=== PATIENT | female | born 1960 | race American Indian/Alaskan Native ===

== ENCOUNTER 2017-04-03 22:35 | Emergency (ER) | payer MEDICARE ==
[2017-04-03 22:59] VITALS: BMI 16.9
[2017-04-03 23:04] VITALS: O2SAT 97
[2017-04-03] MEDS ORDERED: Sodium Chloride 0.9% 1,000 ML IV ONE (23:09)
[2017-04-03 23:40] LABS: BASO % 0.5 % (0.0-2.0); EOS # 0.2 K/uL (0.0-0.7); EOS % 2.4 % (0.0-4.0); HEMATOCRIT 36.7 % (34.0-47.0); LYMPH # 1.2 K/uL (1.0-4.3); LYMPH % 13.1 % (20.0-40.0); MEAN CELL VOLUME 78.9 fL (81.0-99.0); MEAN CORPUSCULAR HEMOGLOBIN 25.6 pg (27.0-31.0); MEAN CORPUSCULAR HGB CONC 32.5 g/dL (33.0-37.0); MEAN PLATELET VOLUME 7.6 fL (7.2-11.7); MONO # 0.5 K/uL (0.0-0.8); MONO % 5.1 % (0.0-10.0); RED CELL DISTRIBUTION WIDTH 16.5 % (11.5-14.5); WHITE BLOOD COUNT 8.9 K/uL (4.8-10.8)
[2017-04-03] MEDS ORDERED: HYDROmorphone 1 mg/ml ISec ONE (23:41)
[2017-04-03 23:53] LABS: POTASSIUM 4.1 mmol/L (3.6-5.2); SODIUM 137 mmol/L (132-148)
[2017-04-03 23:55] LABS: BILIRUBIN,TOTAL 0.5 mg/dL (0.2-1.3); CARBON DIOXIDE 33 mmol/L (22-30); GFR AFRICAN-AMERICAN > 60
[2017-04-03 23:56] LABS: ALB/GLOB RATIO 0.8 (1.0-2.1); ALKALINE PHOSPHATASE 99 U/L (38-126); ALT/SGPT 25 U/L (9-52); AST/SGOT 25 U/L (14-36); BLOOD UREA NITROGEN 3 mg/dL (7-17); CALCIUM 8.7 mg/dl (8.6-10.4); GLUCOSE,RANDOM 94 mg/dL (65-105); TOTAL PROTEIN 6.2 g/dL (6.3-8.3)
[2017-04-04 00:03] LABS: CHLORIDE 99 mmol/L (98-107)
[2017-04-04] MEDS ORDERED: HYDROmorphone 1 mg/ml ISec ONE (00:24)
[2017-04-04 01:01] LABS: RBC URINE < 1 /hpf (0-3); URINE BILIRUBIN NEGATIVE (NEGATIVE); URINE BLOOD NEGATIVE (NEGATIVE); URINE COLOR Yellow (YELLOW); URINE GLUCOSE (UA) NORMAL (Normal); URINE KETONE NEGATIVE (NEGATIVE); URINE LEUKOCYTE ESTERASE NEG Leu/uL (Negative); URINE PROTEIN NEGATIVE (NEGATIVE); URINE UROBILINOGEN NORMAL mg/dL (0.2-1.0); WBC URINE 1 /hpf (0-5)
--- NOTE | 2017-04-04 01:13 | C.PDOC ---
History Of Present Illness A 56 y/o female with a Hx of pancreatitis, c/o upper abdominal pain that occurred today. Pt denies fever, chills, trauma, nausea, vomiting, diarrhea, vaginal bleeding or discharge, dysuria, or hematuria. Time Seen by Provider: 04/04/17 00:45 Chief Complaint (Nursing): Abdominal Pain History Per: Patient History/Exam Limitations: no limitations Onset/Duration Of Symptoms: Hrs Current Symptoms Are (Timing): Still Present Severity: Mild Location Of Pain/Discomfort: Other (Upper abdominal pain) Quality Of Discomfort: "Pain" Associated Symptoms: denies: Fever, Chills, Nausea, Vomiting Recent travel outside of the [place]: No Additional History Per: Patient Abnormal Vaginal Bleeding: No Past Medical History Reviewed: Historical Data, Nursing Documentation, Vital Signs Vital Signs: Last Vital Signs Temp 99.3 F 04/03/17 22:59 Pulse 76 04/04/17 01:30 Resp 14 04/04/17 01:30 BP 109/69 04/04/17 01:30 Pulse Ox 97 04/04/17 01:30 - Medical History PMH: COPD, Gall Bladder Disease (Cholelithiasis), Pancreatitis Denies: Anxiety, Chronic Kidney Disease - [facility] Procedures INSERT INTERCOSTAL CATH (11/15/13) NON-INVASIVE MECHANICAL VENTILATION (11/15/13) PARENTERAL INFUSION OF CONCENTRATED NUT. SUBSTANCE (11/15/13) THORACOSCOPIC DECORTICATION OF LUNG (11/15/13) Family History: States: Unknown Family Hx - Social History Hx Tobacco Use: Yes Hx Alcohol Use: No Hx Substance Use: No - Immunization History Hx Tetanus Toxoid Vaccination: No Hx Influenza Vaccination: Yes Hx Pneumococcal Vaccination: No Review Of Systems Except As Marked, All Systems Reviewed And Found Negative. Constitutional: Negative for: Fever, Chills, Other (Trauma) Gastrointestinal: Positive for: Abdominal Pain (Upper abdominal pain). Negative for: Nausea, Vomiting, Diarrhea Genitourinary: Negative for: Dysuria, Hematuria, Vaginal Discharge, Vaginal Bleeding Physical Exam - Physical Exam Appears: Non-toxic, In Acute Distress (Distress due to pain) Skin: Warm, Dry Head: Atraumatic, Normacephalic Eye(s): bilateral: Normal Inspection Chest: Symmetrical Cardiovascular: Rhythm Regular, No Murmur Respiratory: Normal Breath Sounds, No Accessory Muscle Use, No Rales, No Rhonchi , No Wheezing Gastrointestinal/Abdominal: Soft, Tenderness (Tenderness to the epigastric area) , Guarding (Upper abdominal area), No Rebound Back: Normal Inspection, No CVA Tenderness Neurological/Psych: Oriented x3, Normal Speech, Normal Cognition, Other (No focal deficit) Gait: Steady ED Course And Treatment - Laboratory Results Result Diagrams: 04/03/17 23:37 04/03/17 23:37 O2 Sat by Pulse Oximetry: 97 (RA) Pulse Ox Interpretation: Normal Medical Decision Making Medical Decision Making: Impression: 56 y/o female c/o upper abdominal pain since today Plans:IV fluids, Dilauded, reassess Disposition Discussed With : Connor Baker Doctor Will See Patient In The: Hospital Counseled Patient/Family Regarding: Diagnosis - Disposition Disposition: AGAINST MEDICAL ADVICE Disposition Time: 02:47 Condition: STABLE - POA Present On Arrival: None - Clinical Impression Clinical Impression: Abdominal pain, Elevated lipase, Acute pancreatitis - Scribe Statement The provider has reviewed the documentation as recorded by the Conneribemanuel rodriguez All medical record entries made by the Conneribemanuel were at my direction and personally dictated by me. I have reviewed the chart and agree that the record accurately reflects my personal performance of the history, physical exam, medical decision making, and the department course for this patient. I have also personally directed, reviewed, and agree with the discharge instructions and disposition.
[2017-04-04] MEDS ORDERED: Dextrose 5%/0.45% NS 1,000 ML IV SCH (02:00)
[2017-04-04 04:02] VITALS: BP 110/72; PULSE 74; RESP 16; TEMP 98.7
[2017-04-04] MEDS ORDERED: Enoxaparin 30 mg Syringe SC SCH (10:00)
--- NOTE | 2017-04-05 00:34 | CP.PCM.HP ---
History of Present Illness - History of Present Illness History of Present Illness: A 56 y/o female with a Hx of pancreatitis, c/o upper abdominal pain that occurred today. Pt denies fever, chills, trauma, nausea, vomiting, diarrhea, vaginal bleeding or discharge, dysuria, or hematuria. Past Patient History - Infectious Disease Hx of Infectious Diseases: None - Past Medical History & Family History Past Medical History?: No - Past Social History Smoking Status: Former Smoker - CARDIAC Hx Cardiac Disorders: No - PULMONARY Hx Chronic Obstructive Pulmonary Disease (COPD): Yes - NEUROLOGICAL Hx Neurological Disorder: No - HEENT Hx HEENT Problems: No - RENAL Hx Chronic Kidney Disease: No - HEMATOLOGICAL/ONCOLOGICAL Hx Blood Disorders: No - INTEGUMENTARY Hx Dermatological Problems: No - MUSCULOSKELETAL/RHEUMATOLOGICAL Hx Falls: No - GASTROINTESTINAL Hx Gall Bladder Disease: Yes (Cholelithiasis) Hx Pancreatitis: Yes - GENITOURINARY/GYNECOLOGICAL Hx Genitourinary Disorders: No - PSYCHIATRIC Hx Anxiety: No Hx Substance Use: No - SURGICAL HISTORY Hx Surgeries: Yes Other/Comment: chesttube insertion-left 11/15/13 oopherectomy 1989 - ANESTHESIA Hx Anesthesia: Yes Hx Anesthesia Reactions: No Hx Malignant Hyperthermia: No Meds Home Medications: Home Medication List Medication Instructions Recorded Confirmed Type oxyCODONE/Acetaminophen [Percocet 1 ea PO Q4 #2 tab 04/04/17 Rx 5/325 mg Tab] Allergies/Adverse Reactions: Allergies Allergy/AdvReac Type Severity Reaction Status Date / Time No Known Allergies Allergy Verified 04/03/17 22:48 Results - Vital Signs Recent Vital Signs: Last Vital Signs Temp 98.7 F 04/04/17 03:00 Pulse 74 04/04/17 03:00 Resp 16 04/04/17 03:00 BP 110/72 04/04/17 03:00 Pulse Ox 97 04/04/17 03:00 - Labs Result Diagrams: 04/03/17 23:37 04/03/17 23:37
== END 2017-04-04 03:00 | disposition left against medical advice (07) ==
LOC: C.ER 22:35 → UNDOADMIN 04-04 01:20 → C.3T 04-04 01:20 → C.ER 04-04 03:00 → UNDODISIN 04-04 03:00
DX: K85.90 Acute pancreatitis without necrosis or infection, unspecified (principal)
CPT/HCPCS: 80053; 81001; 83690; 85025; 96374; 99285; J1170; J7040; J7042

== ENCOUNTER 2017-06-23 06:10 | Inpatient (IN) | payer MEDICARE ==
[2017-06-18 10:07] VITALS: BMI 13.7
[2017-06-23 07:07] LABS: HEMATOCRIT 34.9 % (34.0-47.0); MEAN CORPUSCULAR HEMOGLOBIN 22.8 pg (27.0-31.0); MEAN CORPUSCULAR HGB CONC 31.1 g/dL (33.0-37.0); MEAN PLATELET VOLUME 7.7 fL (7.2-11.7); RED CELL DISTRIBUTION WIDTH 17.2 % (11.5-14.5); WHITE BLOOD COUNT 8.1 K/uL (4.8-10.8)
[2017-06-23 07:18] LABS: MEAN CELL VOLUME 73.1 fL (81.0-99.0)
[2017-06-23] MEDS ORDERED: Propofol 10 mg/ml Inj (20 ML) ONE (07:38)
[2017-06-23] MEDS ORDERED: Midazolam 2 MG/2 ML VIAL ONE (07:38)
[2017-06-23] MEDS ORDERED: ceFAZolin IV 1 gm in Dextrose 1 GM/50 ML BAG IVPB ONE (07:42)
[2017-06-23] MEDS ORDERED: Lactated Ringer's 1,000 ML IV ONE ×4 (07:50→16:00)
[2017-06-23] MEDS: Iohexol 240 (50 ml) ONE ×3 (08:08→09:49)
[2017-06-23] MEDS ORDERED: Phenylephrine 10 mg/ml Inj ONE (09:14)
[2017-06-23] MEDS ORDERED: ePHEDrine 50 mg/ml Inj ONE (09:14)
[2017-06-23] MEDS ORDERED: Rocuronium 10 mg/ml (5 ml) ONE (09:14)
[2017-06-23] MEDS ORDERED: Iohexol 240 (50 ml) ONE (09:49)
[2017-06-23] MEDS ORDERED: Neostigmine Methylsulfate 3mg/3ml Syringe IV ONE (11:29)
[2017-06-23] MEDS ORDERED: Sodium Chloride 0.9% 1,000 ML IV ONE ×2 (11:35→13:30)
[2017-06-23] MEDS ORDERED: Albuterol HFA 90 mcg/actuation (8 g) INH PRN ×2 (11:38→20:45)
--- NOTE | 2017-06-23 11:42 | PCM.SURG1 ---
Surgeon's Initial Post Op Note - Surgeon's Notes Surgeon: Dr. Small Program Writer: Dr. Smith PGY-3, Dr. Camp PGY-2 Type of Anesthesia: General Endo Pre-Operative Diagnosis: Cholelithiasis Operative Findings: Cholelithiasis, extensive adhesions Post-Operative Diagnosis: Cholelithiasis Operation Performed: Laparoscopic cholecystectomy, lysis of adhesions Specimen/Specimens Removed: gallbladder Estimated Blood Loss: EBL {In ML}: 400 Blood Products Given: N/A Drains Used: Fermin Post-Op Condition: Fair Date of Surgery/Procedure: 06/23/17 Time of Surgery/Procedure: 08:00
[2017-06-23] MEDS: HYDROmorphone 0.5 mg/0.5 ml ISec IVP PRN ×4 (12:13→15:52)
[2017-06-23 12:44] LABS: MEAN CELL VOLUME 74.4 fL (81.0-99.0)
[2017-06-23 12:48] LABS: BASO % 0.1 % (0.0-2.0); EOS % 0.2 % (0.0-4.0); HEMATOCRIT 27.8 % (34.0-47.0); LYMPH # 0.8 K/uL (1.0-4.3); LYMPH % 6.2 % (20.0-40.0); MEAN CORPUSCULAR HEMOGLOBIN 22.4 pg (27.0-31.0); MEAN CORPUSCULAR HGB CONC 30.1 g/dL (33.0-37.0); MEAN PLATELET VOLUME 7.3 fL (7.2-11.7); MONO # 0.7 K/uL (0.0-0.8); MONO % 5.4 % (0.0-10.0); PLATELET COUNT 332 K/uL (130-400)
[2017-06-23 12:50] LABS: WHITE BLOOD COUNT 13.6 K/uL (4.8-10.8)
[2017-06-23 13:18] LABS: NEUTROPHIL 84 % (50-75); TOTAL CELLS COUNTED 100
[2017-06-23 13:20] LABS: LARGE PLATELETS PRESENT
--- NOTE | 2017-06-23 14:41 | RAD ---
PROCEDURE: Intraoperative fluoroscopy HISTORY: CHOLECYSTITIS COMPARISON: None available TECHNIQUE: Intraoperative fluoroscopy was provided for intraoperative cholangiogram. Total time of fluoroscopy was 37.3 seconds. FINDINGS: Multiple fluoroscopic spot films are submitted. These demonstrate opacification of the intrahepatic biliary ductal system and common bile duct and cystic duct remnant. No filling defects are appreciated. Films are on file for review. IMPRESSION: Fluoroscopy provided.
[2017-06-23] MEDS ORDERED: HYDROmorphone 0.5 mg/0.5 ml ISec ONE (15:53)
[2017-06-23 16:10] LABS: BASO % 0.2 % (0.0-2.0); HEMATOCRIT 32.1 % (34.0-47.0); LYMPH # 0.5 K/uL (1.0-4.3); LYMPH % 3.6 % (20.0-40.0); MEAN CELL VOLUME 73.9 fL (81.0-99.0); MEAN CORPUSCULAR HEMOGLOBIN 22.4 pg (27.0-31.0); MEAN CORPUSCULAR HGB CONC 30.3 g/dL (33.0-37.0); MEAN PLATELET VOLUME 7.5 fL (7.2-11.7); MONO % 6.6 % (0.0-10.0); RED CELL DISTRIBUTION WIDTH 18.2 % (11.5-14.5); WHITE BLOOD COUNT 14.7 K/uL (4.8-10.8)
[2017-06-23] MEDS ORDERED: HYDROmorphone 1 mg/ml ISec IVP PRN ×2 (17:42→21:03)
--- NOTE | 2017-06-23 20:17 | CP.PCM.CON ---
<CamilajamshidvilmaKathy RinconFrank - Last Filed: 06/23/17 20:10> History of Present Illness - History of Present Illness History of Present Illness: 56 year old female patient with past medical history of COPD, anxiety, pancreatitis, and DVT w/IVC filter, is consulted for s/p laproscopic cholecystecomy (elective procedure/outpatient) with Dr. Small. During the procedure, patient lost approximately 400ml of blood. Patient received 1 unit of PRBC and hemoglobin improved from 8.4 to 9.7. Patient currently reports having 10/10 pain in her abdomen, at the surgical sites. Patient reports taking percocet for more than a year for her abdominal pain. Patient denies having chest pain, headaches, leg pain, nausea, vomiting, and fevers. PMD: Dr. Downing PMHx: COPD, anxiety, pancreatitis, and DVT w/IVC filter SurgHx:"surgery on ovaries many years ago" FamHx: Aunt has cancer (unknown type) SocHx: 1/2ppd for "years", denies drinking and drug use Allergies: NKDA Medications: "inhaler for COPD and a pill for anxiety"; See EMR. Review of Systems - Constitutional Constitutional: absent: Fever, Headache - EENT Ears: absent: Dizziness - Cardiovascular Cardiovascular: absent: Chest Pain, Dyspnea - Respiratory Respiratory: absent: Dyspnea - Gastrointestinal Gastrointestinal: Abdominal Pain. absent: Nausea, Vomiting - Neurological Neurological: absent: Dizziness, Headaches Past Patient History - Infectious Disease Hx of Infectious Diseases: None - Past Medical History & Family History Past Medical History?: Yes - Past Social History Smoking Status: Former Smoker - CARDIAC Hx Cardiac Disorders: No - PULMONARY Hx Respiratory Disorders: Yes Hx Chronic Obstructive Pulmonary Disease (COPD): Yes Hx Pneumonia: Yes (CHILDHOOD) Hx Respiratory Tract Infection: Yes Other/Comment: CHEST TUBE /LUNG INFECTION - NEUROLOGICAL Hx Neurological Disorder: No - HEENT Hx HEENT Problems: No - RENAL Hx Chronic Kidney Disease: No - ENDOCRINE/METABOLIC Hx Endocrine Disorders: No - HEMATOLOGICAL/ONCOLOGICAL Hx Blood Disorders: No Hx Blood Transfusions: Yes Hx Blood Transfusion Reaction: No - INTEGUMENTARY Hx Dermatological Problems: No - MUSCULOSKELETAL/RHEUMATOLOGICAL Hx Musculoskeletal Disorders: No Hx Falls: No - GASTROINTESTINAL Hx Gastrointestinal Disorders: Yes Hx Gall Bladder Disease: Yes (Cholelithiasis) Hx Pancreatitis: Yes - GENITOURINARY/GYNECOLOGICAL Hx Genitourinary Disorders: No - PSYCHIATRIC Hx Psychophysiologic Disorder: No Hx Anxiety: No Hx Substance Use: No - SURGICAL HISTORY Hx Surgeries: Yes Other/Comment: chesttube insertion-left 11/15/13 oopherectomy 1989 - ANESTHESIA Hx Anesthesia: Yes Hx Anesthesia Reactions: No Hx Malignant Hyperthermia: No Has any member of the family had a problem w/ anesthesia?: No Meds Allergies/Adverse Reactions: Allergies Allergy/AdvReac Type Severity Reaction Status Date / Time No Known Allergies Allergy Verified 06/18/17 10:27 - Medications Medications: Current Medications Albuterol (Ventolin Hfa 90 Mcg/Actuation (8 G)) 1 puff INH Q6H PRN PRN Reason: Shortness of Breath Clonazepam (Klonopin) 1 mg PO BID MARY Hydromorphone HCl (Dilaudid) 1 mg IVP Q4H PRN PRN Reason: Pain, moderate (4-7) Lactated Ringer's (Lactated Ringer's) 1,000 mls @ 80 mls/hr IV .[id number] MARY Ondansetron HCl (Zofran Inj) 4 mg IVP Q4 PRN PRN Reason: Nausea/Vomiting Pantoprazole Sodium (Protonix Inj) 40 mg IVP DAILY MARY Fluticasone/Salmeterol (Advair Diskus 250/50) 1 puff INH RBID MARY Physical Exam - Constitutional Appears: In Acute Distress (secondary to pain (s/p surgery)) - Head Exam Head Exam: ATRAUMATIC, NORMAL INSPECTION - Eye Exam Eye Exam: EOMI - ENT Exam ENT Exam: Mucous Membranes Dry - Respiratory Exam Respiratory Exam: Decreased Breath Sounds, Clear to Auscultation Bilateral. absent: Rales, Rhonchi, Wheezes - Cardiovascular Exam Cardiovascular Exam: REGULAR RHYTHM, +S1, +S2 - GI/Abdominal Exam GI & Abdominal Exam: Hypoactive Bowel Sounds, Tenderness (at surgical sites). absent: Distended, Firm - Extremities Exam Extremities exam: Positive for: pedal edema - Neurological Exam Neurological exam: Alert, Oriented x3 - Psychiatric Exam Psychiatric exam: Agitated (due to pain) - Skin Skin Exam: Dry, Intact, Normal Color, Warm Results - Vital Signs Recent Vital Signs: Last Vital Signs Temp 97 F L 06/23/17 16:50 Pulse 91 H 06/23/17 19:00 Resp 20 08/21/17 19:00 BP 156/98 H 06/23/17 19:00 Pulse Ox 100 06/23/17 19:00 - Labs Result Diagrams: 06/23/17 16:13 Labs: Laboratory Results - last 24 hr 06/23/17 06/23/17 06/23/17 07:04 07:04 12:39 WBC 8.1 13.6 H D RBC 4.78 3.74 L Hgb 10.9 L 8.4 L D Hct 34.9 27.8 L MCV 73.1 L D 74.4 L MCH 22.8 L 22.4 L MCHC 31.1 L 30.1 L RDW 17.2 H 17.0 H Plt Count 399 332 MPV 7.7 7.3 Neut % (Auto) 88.1 H Lymph % (Auto) 6.2 L Wirt % (Auto) 5.4 Eos % (Auto) 0.2 Baso % (Auto) 0.1 Neut # 12.0 H Lymph # 0.8 L Wirt # 0.7 Eos # 0.0 Baso # 0.0 Neutrophils % (Manual) 84 H Band Neutrophils % 9 H Lymphocytes % (Manual) 2 L Monocytes % (Manual) 5 Platelet Estimate Normal Large Platelets Present Hypochromasia (manual) Slight Poikilocytosis (manual Slight Anisocytosis (manual) Slight Microcytosis (manual) Slight Target Cells Slight Ovalocytes Slight Blood Type A POSITIVE Antibody Screen Negative 06/23/17 16:13 WBC 14.7 H RBC 4.34 Hgb 9.7 L Hct 32.1 L MCV 73.9 L MCH 22.4 L MCHC 30.3 L RDW 18.2 H Plt Count 260 MPV 7.5 Neut % (Auto) 89.6 H Lymph % (Auto) 3.6 L Wirt % (Auto) 6.6 Eos % (Auto) 0.0 Baso % (Auto) 0.2 Neut # 13.2 H Lymph # 0.5 L Wirt # 1.0 H Eos # 0.0 Baso # 0.0 Neutrophils % (Manual) Band Neutrophils % Lymphocytes % (Manual) Monocytes % (Manual) Platelet Estimate Large Platelets Hypochromasia (manual) Poikilocytosis (manual Anisocytosis (manual) Microcytosis (manual) Target Cells Ovalocytes Blood Type Antibody Screen Assessment & Plan (1) S/P cholecystectomy Assessment and Plan: 56 year old female patient with past medical history of COPD, anxiety, pancreatitis, and DVT w/IVC filter, is consulted for s/p laproscopic cholecystecomy (elective procedure/outpatient) with Dr. Small. During the procedure, patient lost approximately 400ml of blood. Patient received 1 unit of PRBC and hemoglobin improved from 8.4 to 9.7. Patient currently reports having 10/10 pain in her abdomen, at the surgical sites. Patient reports taking percocet for more than a year for her abdominal pain. Patient denies having chest pain, headaches, leg pain, nausea, vomiting, and fevers. Neuro: alert, oriented Pulm: Hx of COPD - O2 via nasal cannula prn - Incentive spirometry - Continue ventolin, advair CV: no acute issues - Continue to monitor Endo: no acute issues GI: - S/p laproscopic cholecystectomy - Hx of Pancreatitis - Continue Pancreaze - CMP: f/u Heme: anemic - Estimated blood loss during surgery 400ml - Hgb decreased from 10.9 to 8.4 - Patient received 1 unit PRBC --> Hgb increased to 9.7 - Monitor H/H Renal: - Dehydrated - Continue lactated ringers ID: no acute issues Prophylaxis: - DVT: SCDs; IVC Filter (from previous hx of DVT); no anticoagulation due to anemia - GI: Protonix Status: Acute <Hunter Escobedo P - Last Filed: 06/24/17 08:09> Meds - Medications Medications: Current Medications Albuterol (Ventolin Hfa 90 Mcg/Actuation (8 G)) 1 puff INH RQ6 PRN PRN Reason: Shortness of Breath Clonazepam (Klonopin) 1 mg PO BID PRN PRN Reason: Anxiety Hydromorphone HCl (Dilaudid) 1 mg IVP Q3 PRN PRN Reason: Pain, moderate (4-7) Last Admin: 06/24/17 05:40 Dose: 1 mg Lactated Ringer's (Lactated Ringer's) 1,000 mls @ 80 mls/hr IV .[id number] MARY Last Admin: 06/24/17 02:13 Dose: Not Given Ondansetron HCl (Zofran Inj) 4 mg IVP Q4 PRN PRN Reason: Nausea/Vomiting Pantoprazole Sodium (Protonix Inj) 40 mg IVP DAILY [facility] Fluticasone/Salmeterol (Advair Diskus 250/50) 1 puff INH RBID MARY Results - Vital Signs Recent Vital Signs: Last Vital Signs Temp 99.8 F H 06/24/17 00:00 Pulse 86 06/24/17 07:00 Resp 16 06/24/17 07:00 BP 107/71 06/24/17 06:02 Pulse Ox 99 06/24/17 07:00 - Labs Result Diagrams: 06/24/17 06:32 06/24/17 06:32 Labs: Laboratory Results - last 24 hr 06/23/17 06/23/17 06/23/17 07:04 12:39 16:13 WBC 13.6 H D 14.7 H RBC 3.74 L 4.34 Hgb 8.4 L D 9.7 L Hct 27.8 L 32.1 L MCV 74.4 L 73.9 L MCH 22.4 L 22.4 L MCHC 30.1 L 30.3 L RDW 17.0 H 18.2 H Plt Count 332 260 MPV 7.3 7.5 Neut % (Auto) 88.1 H 89.6 H Lymph % (Auto) 6.2 L 3.6 L Wirt % (Auto) 5.4 6.6 Eos % (Auto) 0.2 0.0 Baso % (Auto) 0.1 0.2 Neut # 12.0 H 13.2 H Lymph # 0.8 L 0.5 L Wirt # 0.7 1.0 H Eos # 0.0 0.0 Baso # 0.0 0.0 Neutrophils % (Manual) 84 H Band Neutrophils % 9 H Lymphocytes % (Manual) 2 L Monocytes % (Manual) 5 Platelet Estimate Normal Large Platelets Present Hypochromasia (manual) Slight Poikilocytosis (manual Slight Anisocytosis (manual) Slight Microcytosis (manual) Slight Macrocytosis (manual) Target Cells Slight Tear Drop Cells Ovalocytes Slight [place] Cells Sodium Potassium Chloride Carbon Dioxide Anion Gap BUN Creatinine Est GFR ( Amer) Est GFR (Non-Af Amer) Random Glucose Calcium Phosphorus Magnesium Total Bilirubin AST ALT Alkaline Phosphatase Total Protein Albumin Globulin Albumin/Globulin Ratio Blood Type A POSITIVE Antibody Screen Negative 06/23/17 06/23/17 06/24/17 21:42 21:42 06:32 WBC 10.3 10.9 H RBC 4.01 4.30 Hgb 9.2 L 10.0 L Hct 29.5 L 31.7 L MCV 73.5 L 73.8 L MCH 23.0 L 23.2 L MCHC 31.2 L 31.5 L RDW 17.9 H 17.6 H Plt Count 240 281 MPV 7.5 8.1 Neut % (Auto) 87.5 H 82.9 H Lymph % (Auto) 4.5 L 7.6 L Wirt % (Auto) 7.0 8.4 Eos % (Auto) 0.6 0.8 Baso % (Auto) 0.4 0.3 Neut # 9.0 H 9.0 H Lymph # 0.5 L 0.8 L Wirt # 0.7 0.9 H Eos # 0.1 0.1 Baso # 0.0 0.0 Neutrophils % (Manual) 90 H Band Neutrophils % 5 H Lymphocytes % (Manual) 3 L Monocytes % (Manual) 2 Platelet Estimate Normal Large Platelets Hypochromasia (manual) Slight Poikilocytosis (manual Slight Anisocytosis (manual) Slight Microcytosis (manual) Slight Macrocytosis (manual) Slight Target Cells Tear Drop Cells Slight Ovalocytes Slight [place] Cells Slight Sodium 133 Potassium 3.5 L Chloride 110 H Carbon Dioxide 19 L Anion Gap 8 L BUN 3 L Creatinine 0.4 L Est GFR ( Amer) > 60 Est GFR (Non-Af Amer) > 60 Random Glucose 66 Calcium 5.4 L* D Phosphorus 2.9 Magnesium 1.1 L Total Bilirubin 0.9 AST 214 H D ALT 98 H D Alkaline Phosphatase 79 Total Protein 3.7 L Albumin 1.7 L D Globulin 1.9 L Albumin/Globulin Ratio 0.9 L Blood Type Antibody Screen 06/24/17 06:32 WBC RBC Hgb Hct MCV MCH MCHC RDW Plt Count MPV Neut % (Auto) Lymph % (Auto) Wirt % (Auto) Eos % (Auto) Baso % (Auto) Neut # Lymph # Wirt # Eos # Baso # Neutrophils % (Manual) Band Neutrophils % Lymphocytes % (Manual) Monocytes % (Manual) Platelet Estimate Large Platelets Hypochromasia (manual) Poikilocytosis (manual Anisocytosis (manual) Microcytosis (manual) Macrocytosis (manual) Target Cells Tear Drop Cells Ovalocytes [place] Cells Sodium 130 L Potassium 5.0 Chloride 98 Carbon Dioxide 26 Anion Gap 11 BUN 3 L Creatinine 0.5 L Est GFR ( Amer) > 60 Est GFR (Non-Af Amer) > 60 Random Glucose 74 Calcium 9.2 Phosphorus 4.0 Magnesium 1.7 Total Bilirubin 0.8 AST 163 H D ALT 104 H Alkaline Phosphatase 126 D Total Protein 5.0 L Albumin 2.6 L D Globulin 2.4 Albumin/Globulin Ratio 1.1 Blood Type Antibody Screen Attending/Attestation - Attestation I have personally seen and examined this patient.: Yes I have fully participated in the care of the patient.: Yes I have reviewed all pertinent clinical information: Yes Notes (Text): 56 F being observed in icu s/p lap cholecystectomy as has 2 bleeders during surg , which were stopped, EBL about 400, s/p 1unit prbc, pmh of copd, tobacco abuse , use pain meds, pancreatic enzymes for chronic pancreatitis, h/o ivc filter suggesting h/o dvt, details not available. Patient c/o pain which is mainly at sites of port entry, rather rest of abd. Monitor h/h, dvt prophylaxis after pod# 1, after h/h is maintained, see orders for detail.
[2017-06-23] MEDS ORDERED: Morphine 4 MG/ML VIAL IVP STA (20:33)
[2017-06-23] MEDS: Lactated Ringer's 1,000 ML IV SCH (21:23)
[2017-06-23 21:45] LABS: BASO % 0.4 % (0.0-2.0); EOS # 0.1 K/uL (0.0-0.7); EOS % 0.6 % (0.0-4.0); HEMATOCRIT 29.5 % (34.0-47.0); LYMPH # 0.5 K/uL (1.0-4.3); LYMPH % 4.5 % (20.0-40.0); MEAN CELL VOLUME 73.5 fL (81.0-99.0); MEAN CORPUSCULAR HGB CONC 31.2 g/dL (33.0-37.0); MEAN PLATELET VOLUME 7.5 fL (7.2-11.7); MONO # 0.7 K/uL (0.0-0.8); PLATELET COUNT 240 K/uL (130-400); RED CELL DISTRIBUTION WIDTH 17.9 % (11.5-14.5); WHITE BLOOD COUNT 10.3 K/uL (4.8-10.8)
[2017-06-23 21:53] LABS: CHLORIDE 110 mmol/L (98-107); POTASSIUM 3.5 mmol/L (3.6-5.2); SODIUM 133 mmol/L (132-148)
[2017-06-23 21:55] LABS: BILIRUBIN,TOTAL 0.9 mg/dL (0.2-1.3); GFR AFRICAN-AMERICAN > 60
[2017-06-23 21:56] LABS: ALB/GLOB RATIO 0.9 (1.0-2.1); ALKALINE PHOSPHATASE 79 U/L (38-126); ALT/SGPT 98 U/L (9-52); AST/SGOT 214 U/L (14-36); BLOOD UREA NITROGEN 3 mg/dL (7-17); CARBON DIOXIDE 19 mmol/L (22-30); GLUCOSE,RANDOM 66 mg/dL (65-105); PHOSPHOROUS 2.9 mg/dL (2.5-4.5); TOTAL PROTEIN 3.7 g/dL (6.3-8.3)
[2017-06-23 21:57] LABS: MAGNESIUM 1.1 mg/dL (1.6-2.3)
[2017-06-23 21:59] LABS: CALCIUM 5.4 mg/dl (8.6-10.4)
[2017-06-23 22:25] LABS: NEUTROPHIL 90 % (50-75); TOTAL CELLS COUNTED 100
[2017-06-23] MEDS: HYDROmorphone 1 mg/ml ISec IVP PRN (23:48)
[2017-06-24] MEDS: Lactated Ringer's 1,000 ML IV SCH (02:13)
[2017-06-24] MEDS: HYDROmorphone 1 mg/ml ISec IVP PRN ×7 (02:56→21:36)
--- NOTE | 2017-06-24 07:00 | OP ---
PROCEDURE DATE: 06/23/2017 PREOPERATIVE DIAGNOSES: Cholecystitis, cholelithiasis. POSTOPERATIVE DIAGNOSES: Cholecystitis, cholelithiasis. PROCEDURE CARRIED OUT: Laparoscopic cholecystectomy with C-arm cholangiogram. SURGEON: Dr. Small. HAND VIOLIN MAKER: Dr. Smith and ANESTHESIOLOGIST: INDICATIONS: The patient is a middle-aged woman with abdominal pain, found to have gallstones. History includes previous gynecologic surgery through a transverse lower abdominal incision. OPERATIVE FINDINGS: The major problem we encountered was the patient's body habitus, she was quite small, with a very small area between the xiphoid process and the umbilicus. Because of this, we initially by a cutting technique and through an existing umbilical hernia, placed a balloon trocar. We then placed two 5-mm trocars in the right and left lower quadrants respectively. We had to take down numerous adhesions to the anterior abdominal wall and the problem was that later these bled with actually visible bleeding vessels, which had to be clipped. Despite this, our prompt recognition of this, and despite the fact that they were able to be visualized, we did lose approximately 400 to 500 mL of blood during this portion of the procedure. After we had obtained hemostasis, we checked numerous times again to make sure that this was taken care of. There were some residual old brown blood clots that we could not remove, but there was no evidence of fresh bleeding for over 15 minutes at the time of closure. ADDITIONAL FINDINGS: 1. The cholangiogram was normal. 2. Rest of the intraoperative findings were unremarkable. The operation was more difficult than the usual because of the problems with bleeding from the omentum and the patient's small body habitus and the previous surgery. DESCRIPTION OF PROCEDURE: After placing the trocars, we were able to identify the gallbladder, identify the cystic duct, cystic artery, view of safety, carried out a cholangiogram which showed good visualization of the hepatic radicles and good visualization of the distal portion, which was slightly dilated and free flow into the duodenum; however, also it was difficult to fill the area immediately superior to the cystic duct. Nonetheless, it filled above this without any problem and we were in the cystic duct. At this point, we noticed bleeding in the pelvis, which took quite sometime to make sure this was controlled and it was and this was checked again numerous times prior to closure. We then irrigated everything out again. There was a large amount of fluid to remove. We used over 2000 mL of fluid irrigation and when we finally had this all out, we then checked again for hemostasis. After this had been done, we then closed the umbilical port with direct Vicryl sutures and the other ports were left to close primarily. A Fermin drain was brought out through the right lower quadrant from the right upper quadrant. Blood loss was estimated 400 to 500 mL. The patient tolerated the procedure uneventfully. There were no periods of hypotension, except immediately after induction and insufflation, but other than that, the patient tolerated the procedure uneventfully. The patient will be managed expectantly with regard to blood transfusion. Travis Small Jr., MD cc: Dr. Baker.
[2017-06-24 07:03] LABS: ALB/GLOB RATIO 1.1 (1.0-2.1); ALKALINE PHOSPHATASE 126 U/L (38-126); ALT/SGPT 104 U/L (9-52); AST/SGOT 163 U/L (14-36); BILIRUBIN,TOTAL 0.8 mg/dL (0.2-1.3); BLOOD UREA NITROGEN 3 mg/dL (7-17); CALCIUM 9.2 mg/dl (8.6-10.4); CARBON DIOXIDE 26 mmol/L (22-30); CHLORIDE 98 mmol/L (98-107); GFR AFRICAN-AMERICAN > 60; GLUCOSE,RANDOM 74 mg/dL (65-105); MAGNESIUM 1.7 mg/dL (1.6-2.3); SODIUM 130 mmol/L (132-148)
[2017-06-24 07:38] LABS: BASO % 0.3 % (0.0-2.0); EOS # 0.1 K/uL (0.0-0.7); EOS % 0.8 % (0.0-4.0); HEMATOCRIT 31.7 % (34.0-47.0); LYMPH # 0.8 K/uL (1.0-4.3); LYMPH % 7.6 % (20.0-40.0); MEAN CELL VOLUME 73.8 fL (81.0-99.0); MEAN CORPUSCULAR HEMOGLOBIN 23.2 pg (27.0-31.0); MEAN CORPUSCULAR HGB CONC 31.5 g/dL (33.0-37.0); MEAN PLATELET VOLUME 8.1 fL (7.2-11.7); MONO # 0.9 K/uL (0.0-0.8); MONO % 8.4 % (0.0-10.0); PLATELET COUNT 281 K/uL (130-400); RED CELL DISTRIBUTION WIDTH 17.6 % (11.5-14.5); WHITE BLOOD COUNT 10.9 K/uL (4.8-10.8)
--- NOTE | 2017-06-24 07:42 | CP.PCM.PN ---
Subjective - Date & Time of Evaluation Date of Evaluation: 06/24/17 Time of Evaluation: 07:41 - Subjective Subjective: stable hct stable findings discussed with patient Objective - Vital Signs/Intake and Output Vital Signs (last 24 hours): Temp Pulse Resp BP Pulse Ox 99.8 F H 86 16 107/71 99 06/24/17 00:00 06/24/17 07:00 06/24/17 07:00 06/24/17 06:02 06/24/17 07:00 Intake and Output: 06/24/17 06/24/17 06:59 18:59 Intake Total 560 Output Total 1975 Balance -1415 - Medications Medications: Current Medications Albuterol (Ventolin Hfa 90 Mcg/Actuation (8 G)) 1 puff INH RQ6 PRN PRN Reason: Shortness of Breath Clonazepam (Klonopin) 1 mg PO BID PRN PRN Reason: Anxiety Hydromorphone HCl (Dilaudid) 1 mg IVP Q3 PRN PRN Reason: Pain, moderate (4-7) Last Admin: 06/24/17 05:40 Dose: 1 mg Lactated Ringer's (Lactated Ringer's) 1,000 mls @ 80 mls/hr IV .[id number] [facility] Last Admin: 06/24/17 02:13 Dose: Not Given Ondansetron HCl (Zofran Inj) 4 mg IVP Q4 PRN PRN Reason: Nausea/Vomiting Pantoprazole Sodium (Protonix Inj) 40 mg IVP DAILY [facility] Fluticasone/Salmeterol (Advair Diskus 250/50) 1 puff INH RBID MARY - Labs Labs: 06/24/17 06:32 06/24/17 06:32
[2017-06-24] MEDS: Sodium Chloride 0.9% 1,000 ML IV SCH ×2 (08:00→19:51)
[2017-06-24 08:21] LABS: EOSINOPHIL 2 % (0-4); NEUTROPHIL 89 % (50-75); TOTAL CELLS COUNTED 100
[2017-06-24] MEDS ORDERED: Home Med 1 UNIT (Omeprazole [Omeprazole] 20 MG) PO SCH (10:00)
[2017-06-24] MEDS ORDERED: Pantoprazole 20 mg EC Tab PO SCH (10:00)
[2017-06-24] MEDS: LIPASE/PROTEASE/AMYLASE 4,200 U ECC PO SCH ×3 (10:34→18:36)
[2017-06-24 16:51] LABS: HEMATOCRIT 29.9 % (34.0-47.0); MEAN CORPUSCULAR HEMOGLOBIN 23.3 pg (27.0-31.0); MEAN CORPUSCULAR HGB CONC 31.9 g/dL (33.0-37.0); MEAN PLATELET VOLUME 7.7 fL (7.2-11.7); RED CELL DISTRIBUTION WIDTH 17.6 % (11.5-14.5)
[2017-06-24] MEDS ORDERED: Fluticasone-Salmeterol 250-50mcg Diskus INH SCH (20:00)
[2017-06-25] MEDS: HYDROmorphone 1 mg/ml ISec IVP PRN ×8 (00:32→23:50)
[2017-06-25] MEDS: Sodium Chloride 0.9% 1,000 ML IV SCH ×4 (00:40→23:30)
[2017-06-25] MEDS ORDERED: guaiFENesin DM 200 mg-20 mg/10 ml UD PO STA (03:27)
--- NOTE | 2017-06-25 08:35 | CP.PCM.PN ---
Subjective - Date & Time of Evaluation Date of Evaluation: 06/25/17 Time of Evaluation: 07:00 - Subjective Subjective: SURGERY PROGRESS NOTE FOR DR. AUSTIN Patient seen and examined at bedside. She states that she has a lot of pain but it is controlled with the dilaudid. She isn't using her IS and she has not been OOB yet since surgery. She is tolerating her CLD and denies nausea or vomiting. She is coughing and feels congested. Objective - Vital Signs/Intake and Output Vital Signs (last 24 hours): Temp Pulse Resp BP Pulse Ox 98.3 F 84 20 106/67 97 06/25/17 07:50 06/25/17 07:50 06/25/17 07:50 06/25/17 07:50 06/25/17 07:50 Intake and Output: 06/25/17 06/25/17 06:59 18:59 Intake Total 980 Output Total 140 Balance 840 - Medications Medications: Current Medications Albuterol (Ventolin Hfa 90 Mcg/Actuation (8 G)) 1 puff INH RQ6 PRN PRN Reason: Shortness of Breath Clonazepam (Klonopin) 1 mg PO BID PRN PRN Reason: Anxiety Hydromorphone HCl (Dilaudid) 1 mg IVP Q3 PRN PRN Reason: Pain, moderate (4-7) Last Admin: 06/25/17 06:32 Dose: 1 mg Sodium Chloride (Sodium Chloride 0.9%) 1,000 mls @ 80 mls/hr IV .[id number] [facility] Last Admin: 06/25/17 00:40 Dose: 80 mls/hr Ondansetron HCl (Zofran Inj) 4 mg IVP Q4 PRN PRN Reason: Nausea/Vomiting Pantoprazole Sodium (Protonix Inj) 40 mg IVP DAILY [facility] Last Admin: 06/24/17 10:32 Dose: 40 mg Fluticasone/Salmeterol (Advair Diskus 250/50) 1 puff INH RBID [facility] - Labs Labs: 06/24/17 16:30 06/24/17 06:32 - Constitutional Appears: Non-toxic, No Acute Distress - Head Exam Head Exam: ATRAUMATIC, NORMAL INSPECTION - Respiratory Exam Respiratory Exam: NORMAL BREATHING PATTERN. absent: Respiratory Distress - Cardiovascular Exam Cardiovascular Exam: +S1, +S2 - GI/Abdominal Exam GI & Abdominal Exam: Soft, Tenderness (mild tenderness around laparoscopic incision sites). absent: Distended, Firm, Guarding, Rigid, Rebound Additional comments: dressing clean/dry/intact Fermin drain in place with 80cc serosanguinous drainage over third shift lieutenant - Neurological Exam Neurological Exam: Alert, Awake, Oriented x3 - Psychiatric Exam Psychiatric exam: Normal Affect, Normal Mood - Skin Skin Exam: Dry, Normal Color, Warm Assessment and Plan - Assessment and Plan (Free Text) Assessment: 56yo F with chronic pancreatitis secondary to gallstones now s/p laparoscopic cholecystectomy, JAY, IOC, POD#2 - Afebrile, VSS - H&H stable, Hgb 9.7 today - Path: chronic cholecystitis, cholelithiasis - Tolerating CLD, will advance to regular diet for lunch - Strongly encouraged ambulation and IS use - PT ordered to encourage ambulation - Discussed plan with Dr. Geovanny Smith PGY-3
[2017-06-25] MEDS: LIPASE/PROTEASE/AMYLASE 4,200 U ECC PO SCH ×3 (09:50→18:50)
[2017-06-25 10:22] LABS: HEMATOCRIT 31.5 % (34.0-47.0); MEAN CELL VOLUME 74.7 fL (81.0-99.0); MEAN CORPUSCULAR HGB CONC 30.8 g/dL (33.0-37.0); RED CELL DISTRIBUTION WIDTH 17.5 % (11.5-14.5); WHITE BLOOD COUNT 10.6 K/uL (4.8-10.8)
[2017-06-25] MEDS: guaiFENesin 200 mg/10 ml Syrup UD PO PRN ×2 (17:20→21:35)
[2017-06-26 01:22] VITALS: RESP 20
[2017-06-26] MEDS: HYDROmorphone 1 mg/ml ISec IVP PRN ×7 (02:47→21:20)
[2017-06-26] MEDS: Sodium Chloride 0.9% 1,000 ML IV SCH ×3 (05:56→13:26)
[2017-06-26 06:10] LABS: BASO % 0.6 % (0.0-2.0); EOS # 0.1 K/uL (0.0-0.7); EOS % 1.3 % (0.0-4.0); HEMATOCRIT 28.2 % (34.0-47.0); LYMPH # 1.1 K/uL (1.0-4.3); LYMPH % 14.4 % (20.0-40.0); MEAN CORPUSCULAR HEMOGLOBIN 23.1 pg (27.0-31.0); MEAN CORPUSCULAR HGB CONC 31.2 g/dL (33.0-37.0); MONO # 0.8 K/uL (0.0-0.8); MONO % 10.3 % (0.0-10.0); NRBC % 0.1 % (0.0-2.0); RED CELL DISTRIBUTION WIDTH 17.5 % (11.5-14.5); WHITE BLOOD COUNT 7.5 K/uL (4.8-10.8)
[2017-06-26 07:24] LABS: CHLORIDE 95 mmol/L (98-107); POTASSIUM 3.6 mmol/L (3.6-5.2); SODIUM 131 mmol/L (132-148)
[2017-06-26 07:26] LABS: ALB/GLOB RATIO 0.9 (1.0-2.1); ALKALINE PHOSPHATASE 98 U/L (38-126); AST/SGOT 32 U/L (14-36); BILIRUBIN,TOTAL 0.7 mg/dL (0.2-1.3); CARBON DIOXIDE 27 mmol/L (22-30); GFR AFRICAN-AMERICAN > 60; TOTAL PROTEIN 4.6 g/dL (6.3-8.3)
[2017-06-26 07:27] LABS: ALT/SGPT 55 U/L (9-52); BLOOD UREA NITROGEN 5 mg/dL (7-17); GLUCOSE,RANDOM 65 mg/dL (65-105)
[2017-06-26 07:28] LABS: CALCIUM 7.7 mg/dl (8.6-10.4)
[2017-06-26] MEDS: LIPASE/PROTEASE/AMYLASE 4,200 U ECC PO SCH ×3 (09:10→17:33)
--- NOTE | 2017-06-26 13:12 | CP.PCM.PN ---
Subjective - Date & Time of Evaluation Date of Evaluation: 06/26/17 Time of Evaluation: 07:00 - Subjective Subjective: SURGERY PROGRESS NOTE FOR DR. AUSTIN Patient seen and examined at bedside. She was OOB to chair yesterday with PT. She said she will walk with PT today. She isn't eating much but denies nausea or vomiting. She is worried that eating more will make her vomit. She denies BM but has passed flatus since surgery. She complains of congestion. Objective - Vital Signs/Intake and Output Vital Signs (last 24 hours): Temp Pulse Resp BP Pulse Ox 98.6 F 83 20 121/84 97 06/26/17 08:03 06/26/17 08:03 06/26/17 08:03 06/26/17 08:03 06/26/17 08:03 Intake and Output: 06/26/17 06/26/17 06:59 18:59 Intake Total 1720 Output Total 360 Balance 1360 - Medications Medications: Current Medications Albuterol (Ventolin Hfa 90 Mcg/Actuation (8 G)) 1 puff INH RQ6 PRN PRN Reason: Shortness of Breath Clonazepam (Klonopin) 1 mg PO BID PRN PRN Reason: Anxiety Guaifenesin (Robitussin) 200 mg PO Q4H PRN PRN Reason: Cough and congestion Last Admin: 06/25/17 21:35 Dose: 200 mg Hydromorphone HCl (Dilaudid) 0.5 mg IVP Q3 PRN PRN Reason: Pain, moderate (4-7) Sodium Chloride (Sodium Chloride 0.9%) 1,000 mls @ 40 mls/hr IV .Q24H [facility] Ondansetron HCl (Zofran Inj) 4 mg IVP Q4 PRN PRN Reason: Nausea/Vomiting Pantoprazole Sodium (Protonix Inj) 40 mg IVP DAILY [facility] Last Admin: 06/26/17 09:11 Dose: 40 mg Fluticasone/Salmeterol (Advair Diskus 250/50) 1 puff INH RBID [facility] - Labs Labs: 06/26/17 06:00 06/26/17 06:00 - Constitutional Appears: Non-toxic, No Acute Distress - Respiratory Exam Respiratory Exam: NORMAL BREATHING PATTERN. absent: Respiratory Distress - Cardiovascular Exam Cardiovascular Exam: +S1, +S2 - GI/Abdominal Exam GI & Abdominal Exam: Soft, Tenderness (mild tenderness around incision sites). absent: Distended, Firm, Guarding, Rigid, Rebound Additional comments: dressing clean/dry/intact Fermin drain in place with serosanguinous drainage Assessment and Plan - Assessment and Plan (Free Text) Assessment: 56yo F with chronic pancreatitis secondary to gallstones now s/p laparoscopic cholecystectomy, JAY, IOC, POD#3 - Afebrile, VSS - Hgb decreased to 8.8 today from 9.7 yesterday - LFTs trending down, bilirubin WNL - Path: chronic cholecystitis, cholelithiasis - Decreased IV fluids to 40cc/hr - Decreased dilaudid rate to 0.5 Q3 - Strongly encouraged ambulation and IS use - PT following patient to encourage ambulation - Discussed plan with Dr. Geovanny Smith PGY-3
[2017-06-26] MEDS: guaiFENesin 200 mg/10 ml Syrup UD PO PRN (13:30)
[2017-06-27] MEDS: HYDROmorphone 1 mg/ml ISec IVP PRN ×2 (00:30→03:43)
[2017-06-27] MEDS: guaiFENesin 200 mg/10 ml Syrup UD PO PRN (00:35)
[2017-06-27] MEDS: Sodium Chloride 0.9% 1,000 ML IV SCH (03:48)
[2017-06-27] MEDS ORDERED: HYDROmorphone 0.5 mg/0.5 ml ISec IVP PRN (04:15)
[2017-06-27 09:13] LABS: BASO % 0.3 % (0.0-2.0); EOS # 0.2 K/uL (0.0-0.7); EOS % 2.7 % (0.0-4.0); HEMATOCRIT 25.9 % (34.0-47.0); LYMPH # 1.2 K/uL (1.0-4.3); LYMPH % 17.9 % (20.0-40.0); MEAN CELL VOLUME 72.8 fL (81.0-99.0); MEAN CORPUSCULAR HEMOGLOBIN 22.9 pg (27.0-31.0); MEAN CORPUSCULAR HGB CONC 31.4 g/dL (33.0-37.0); MEAN PLATELET VOLUME 7.5 fL (7.2-11.7); MONO # 0.7 K/uL (0.0-0.8); MONO % 10.1 % (0.0-10.0); RED CELL DISTRIBUTION WIDTH 17.7 % (11.5-14.5); WHITE BLOOD COUNT 6.5 K/uL (4.8-10.8)
[2017-06-27 09:23] LABS: CHLORIDE 96 mmol/L (98-107); SODIUM 134 mmol/L (132-148)
[2017-06-27 09:26] LABS: ALB/GLOB RATIO 0.9 (1.0-2.1); ALKALINE PHOSPHATASE 76 U/L (38-126); ALT/SGPT 40 U/L (9-52); AST/SGOT 17 U/L (14-36); BILIRUBIN,TOTAL 0.4 mg/dL (0.2-1.3); BLOOD UREA NITROGEN 5 mg/dL (7-17); CARBON DIOXIDE 32 mmol/L (22-30); GFR AFRICAN-AMERICAN > 60; GLUCOSE,RANDOM 115 mg/dL (65-105); TOTAL PROTEIN 4.3 g/dL (6.3-8.3)
[2017-06-27 09:27] LABS: CALCIUM 7.7 mg/dl (8.6-10.4)
[2017-06-27] MEDS: oxyCODONE 10 mg Immediate Release Tab PO PRN ×2 (09:58→21:41)
[2017-06-27] MEDS: LIPASE/PROTEASE/AMYLASE 4,200 U ECC PO SCH ×3 (09:58→17:23)
[2017-06-27] MEDS ORDERED: Potassium Chloride 20 mEq ER Tab PO ONE (12:00)
--- NOTE | 2017-06-27 17:35 | CP.PCM.PN ---
Subjective - Date & Time of Evaluation Date of Evaluation: 06/27/17 Time of Evaluation: 07:00 - Subjective Subjective: SURGERY PROGRESS NOTE FOR DR. AUSTIN Patient seen and examined at bedside. She refused to work with the physical therapist today. She is also refusing to use the IS. She is tolerating her regular diet and denies nausea or vomiting. Objective - Vital Signs/Intake and Output Vital Signs (last 24 hours): Temp Pulse Resp BP Pulse Ox 98.3 F 80 20 113/78 98 06/27/17 15:00 06/27/17 15:00 06/27/17 15:00 06/27/17 15:00 06/27/17 15:00 Intake and Output: 06/27/17 06/27/17 06:59 18:59 Intake Total 850 1080 Output Total 90 280 Balance 760 800 - Medications Medications: Current Medications Acetaminophen (Tylenol 325mg Tab) 325 mg PO Q6H PRN PRN Reason: Pain, severe (8-10) Albuterol (Ventolin Hfa 90 Mcg/Actuation (8 G)) 1 puff INH RQ6 PRN PRN Reason: Shortness of Breath Clonazepam (Klonopin) 1 mg PO BID PRN PRN Reason: Anxiety Docusate Sodium (Colace) 100 mg PO BID [facility] Last Admin: 06/27/17 17:23 Dose: 100 mg Guaifenesin (Robitussin) 200 mg PO Q4H PRN PRN Reason: Cough and congestion Last Admin: 06/27/17 00:35 Dose: 200 mg Ketorolac Tromethamine (Toradol) 30 mg IVP Q6 PRN PRN Reason: Pain, moderate (4-7) Stop: 07/01/17 12:01 Last Admin: 06/27/17 17:24 Dose: 30 mg Ondansetron HCl (Zofran Inj) 4 mg IVP Q4 PRN PRN Reason: Nausea/Vomiting Last Admin: 06/27/17 10:56 Dose: 4 mg Oxycodone HCl (Oxycodone Immediate Release Tab) 10 mg PO Q6H PRN PRN Reason: Pain, severe (8-10) Last Admin: 06/27/17 09:58 Dose: 10 mg Pantoprazole Sodium (Protonix Inj) 40 mg IVP DAILY [facility] Last Admin: 06/27/17 09:58 Dose: 40 mg Fluticasone/Salmeterol (Advair Diskus 250/50) 1 puff INH RBID [facility] - Labs Labs: 06/27/17 09:08 06/27/17 09:08 - Constitutional Appears: Non-toxic, No Acute Distress - Respiratory Exam Respiratory Exam: NORMAL BREATHING PATTERN. absent: Respiratory Distress - Cardiovascular Exam Cardiovascular Exam: +S1, +S2 - GI/Abdominal Exam GI & Abdominal Exam: Soft, Tenderness (mild tenderness near laparoscopic incision sites). absent: Distended, Firm, Guarding, Rigid, Rebound Additional comments: dressing clean/dry/intact Fermin drain in place with serosanguinous drainage - Neurological Exam Neurological Exam: Alert, Awake, Oriented x3 - Psychiatric Exam Psychiatric exam: Normal Affect, Normal Mood - Skin Skin Exam: Normal Color, Warm Assessment and Plan - Assessment and Plan (Free Text) Assessment: 56yo F with chronic pancreatitis secondary to gallstones now s/p laparoscopic cholecystectomy, JAY, IOC, POD#4 - Afebrile, VSS - Hgb decreased to 8.1 from 8.8 yesterday - LFTs WNL, bilirubin WNL - Fermin drain in place with 280cc output over past 24 hours - Path: chronic cholecystitis, cholelithiasis - Discontinued IV fluids - Discontinued dilaudid, patient now on home pain medication regimen - Strongly encouraged ambulation and IS use, discussed importance - PT following patient to encourage ambulation - Discussed plan with Dr. Geovanny Smith PGY-3
[2017-06-28 01:07] VITALS: O2SAT 97
[2017-06-28] MEDS: oxyCODONE 10 mg Immediate Release Tab PO PRN (04:54)
[2017-06-28 07:41] LABS: BASO % 0.6 % (0.0-2.0); EOS # 0.2 K/uL (0.0-0.7); EOS % 2.7 % (0.0-4.0); HEMATOCRIT 25.6 % (34.0-47.0); LYMPH # 1.5 K/uL (1.0-4.3); LYMPH % 20.8 % (20.0-40.0); MEAN CELL VOLUME 74.2 fL (81.0-99.0); MEAN CORPUSCULAR HEMOGLOBIN 23.1 pg (27.0-31.0); MEAN CORPUSCULAR HGB CONC 31.1 g/dL (33.0-37.0); MEAN PLATELET VOLUME 8.6 fL (7.2-11.7); MONO # 0.6 K/uL (0.0-0.8); MONO % 8.7 % (0.0-10.0); RED CELL DISTRIBUTION WIDTH 17.7 % (11.5-14.5)
[2017-06-28 08:22] LABS: CHLORIDE 97 mmol/L (98-107); SODIUM 132 mmol/L (132-148)
[2017-06-28 08:23] LABS: POTASSIUM 3.9 mmol/L (3.6-5.2)
[2017-06-28 08:25] LABS: ALB/GLOB RATIO 0.9 (1.0-2.1); ALKALINE PHOSPHATASE 72 U/L (38-126); ALT/SGPT 37 U/L (9-52); AST/SGOT 18 U/L (14-36); BILIRUBIN,TOTAL 0.3 mg/dL (0.2-1.3); BLOOD UREA NITROGEN 7 mg/dL (7-17); CALCIUM 7.3 mg/dl (8.6-10.4); CARBON DIOXIDE 32 mmol/L (22-30); GFR AFRICAN-AMERICAN > 60; GLUCOSE,RANDOM 84 mg/dL (65-105); TOTAL PROTEIN 4.2 g/dL (6.3-8.3)
[2017-06-28 08:57] VITALS: BP 99/66; PULSE 83; TEMP 97.7
[2017-06-28] MEDS: LIPASE/PROTEASE/AMYLASE 4,200 U ECC PO SCH ×2 (09:26→14:05)
--- NOTE | 2017-06-28 10:52 | CP.PCM.PN ---
Subjective - Date & Time of Evaluation Date of Evaluation: 06/28/17 Time of Evaluation: 07:15 - Subjective Subjective: General Surgery Progress Note for Dr. Small Patient seen and examined at bedside. Overnight, patient complaining about pain regimen. She is on similar regimen as her home meds. She was refusing saying oxy does not work. Ultram was offered as alternative but refused. Patient ended up taking oxy. Patient not eager to get OOB, ambulate or use IS. She is tolerating her regular diet and + flatus. No other complaints at this time. Objective - Vital Signs/Intake and Output Vital Signs (last 24 hours): Temp Pulse Resp BP Pulse Ox 97.7 F 83 20 99/66 L 97 06/28/17 08:00 06/28/17 08:00 06/28/17 08:00 06/28/17 08:00 06/28/17 08:00 Intake and Output: 06/28/17 06/28/17 06:59 18:59 Intake Total 340 Output Total 180 Balance 160 - Medications Medications: Current Medications Acetaminophen (Tylenol 325mg Tab) 325 mg PO Q6H PRN PRN Reason: Pain, severe (8-10) Albuterol (Ventolin Hfa 90 Mcg/Actuation (8 G)) 1 puff INH RQ6 PRN PRN Reason: Shortness of Breath Clonazepam (Klonopin) 1 mg PO BID PRN PRN Reason: Anxiety Docusate Sodium (Colace) 100 mg PO BID [facility] Last Admin: 06/28/17 09:26 Dose: 100 mg Guaifenesin (Robitussin) 200 mg PO Q4H PRN PRN Reason: Cough and congestion Last Admin: 06/27/17 00:35 Dose: 200 mg Ketorolac Tromethamine (Toradol) 30 mg IVP Q6 PRN PRN Reason: Pain, moderate (4-7) Stop: 07/01/17 12:01 Last Admin: 06/28/17 05:34 Dose: 30 mg Ondansetron HCl (Zofran Inj) 4 mg IVP Q4 PRN PRN Reason: Nausea/Vomiting Last Admin: 06/27/17 10:56 Dose: 4 mg Oxycodone HCl (Oxycodone Immediate Release Tab) 10 mg PO Q6H PRN PRN Reason: Pain, severe (8-10) Last Admin: 06/28/17 04:54 Dose: 10 mg Pantoprazole Sodium (Protonix Inj) 40 mg IVP DAILY [facility] Last Admin: 06/28/17 09:26 Dose: 40 mg Fluticasone/Salmeterol (Advair Diskus 250/50) 1 puff INH RBID [facility] Tramadol HCl (Ultram) 50 mg PO Q6H PRN PRN Reason: Pain, moderate (4-7) - Labs Labs: 06/28/17 07:27 06/28/17 07:27 - Constitutional Appears: No Acute Distress, Older Than Stated Age - Head Exam Head Exam: ATRAUMATIC, NORMOCEPHALIC - Eye Exam Eye Exam: Normal appearance - ENT Exam ENT Exam: Mucous Membranes Moist - Respiratory Exam Respiratory Exam: NORMAL BREATHING PATTERN - Cardiovascular Exam Cardiovascular Exam: REGULAR RHYTHM - GI/Abdominal Exam GI & Abdominal Exam: Soft, Tenderness (near incision sites). absent: Distended , Firm, Guarding, Rigid, Rebound Additional comments: fermin drain 280 cc output of serosanguinous fluid over 24 hr - Extremities Exam Extremities Exam: absent: Calf Tenderness - Back Exam Back Exam: absent: CVA tenderness (L), CVA tenderness (R) - Neurological Exam Neurological Exam: Alert, Awake, Oriented x3 - Psychiatric Exam Psychiatric exam: Normal Affect, Normal Mood - Skin Skin Exam: Dry, Intact, Normal Color, Warm Assessment and Plan - Assessment and Plan (Free Text) Plan: 56 F with chronic pancreatitis secondary to gallstones now s/p laparoscopic cholecystectomy, JAY, IOC, POD#5 - Hgb 8.0 - Fermin drain in place with 280 cc output over past 24 hours - Path: chronic cholecystitis, cholelithiasis - Pain control with home regimen - Ambulation and IS - Physcial therapy - will DW Dr. Geovanny Dawkins PGY1
--- NOTE | 2017-07-02 10:46 | PQF ANEMIA ---
This form is a permanent part of the medical record Dr. Ingram, Please clarify if the anemia is an Acute blood loss anemia. Also, was the "actually visible bleeding vessels, which had to be clipped" documented in your OP report an incidental occurrence inherent in the surgical procedure or a complication of the procedure? Clarification of your documentation is requested to better reflect the severity of illness and intensity of treatment of your patient. Indicators present [X] Anemia [X] Drop in H&H from []___ to []___ [] Hypotension [] GI Bleed [X] Transfusion(s) [] Acute bleed other sites [] Tachycardia [] Surgical Procedure Blood Loss (expected not a complication) Other:[] Location in the medical record that reflects the above clinical findings: [Op report 06/23/17] Treatment Provided: [] PHYSICIAN'S RESPONSE Based on your medical judgment of the clinical indicators outlined above, are you treating this patient for a known or suspected: [] Acute blood loss anemia due to operative blood loss , inherent to the procedure [] Acute on Chronic blood loss anemia [] Anemia due to malignancy [] Anemia due to chemotherapy or radiation therapy [] Anemia of Chronic Disease, please specify: [] [] Other, please indicate type of anemia []____ [] If Unable to Determine, please check the box, sign and date. Present On Admission (POA) Indicator: [] Present at the time of admission [] Not present at the time of admission [] Clinically Undetermined In responding to this query, please exercise your independent professional judgment. The fact that a question is asked does not imply that any particular answer is desired or expected. Thank you for your clarification on this documentation. If you have any questions please call:[ ] * Thank you, [ ] qualitative field project manager STEVE
--- NOTE | 2017-07-10 03:09 | DS ---
SUMMARY: The patient is a middle-aged woman who was admitted to hospital for acute cholecystectomy. She previously had abdominal surgery. She noted elective cholecystectomy was quite different due to small space inside her abdomen. She also required one unit of blood transfusion. Postoperatively, she made a very slow recovery. She was slow to get out of bed, slow to respond. Nonetheless, she eventually was able to ambulate on her own, eat regular diet and did not require any additional transfusions, so the operation carried out. DIAGNOSES: Cholecystitis and cholelithiasis. Other diagnoses are anemia secondary to intraoperative blood loss and she received laparoscopic cholecystectomy, which was carried out successfully and blood transfusion. The patient was also followed by Dr. Baker while in the hospital. Travis Small Jr., MD
== END 2017-06-28 14:15 | disposition home or self-care (01) | DRG 418 ==
LOC: C.SDS 06:10 → C.9S 11:33 → C.9E 11:33 → C.9I 20:30 → C.3T 06-25 00:21
PROVIDERS: ADMIT Surgery Vascular Surgery; ATTEND Surgery Vascular Surgery
PROC: 0JNC3ZZ Release Pelvic Region Subcutaneous Tissue and Fascia, Percutaneous Approach (ICD-10-PCS; 2017-06-23)
PROC: BF131ZZ Fluoroscopy of Gallbladder and Bile Ducts using Low Osmolar Contrast (ICD-10-PCS; 2017-06-23)
PROC: 30233N1 Transfusion of Nonautologous Red Blood Cells into Peripheral Vein, Percutaneous Approach (ICD-10-PCS; 2017-06-23)
PROC: 0FT44ZZ Resection of Gallbladder, Percutaneous Endoscopic Approach (ICD-10-PCS; principal; 2017-06-23 07:45)
DX: K80.10 Calculus of gallbladder with chronic cholecystitis without obstruction (principal); D62 Acute posthemorrhagic anemia; K86.1 Other chronic pancreatitis; E86.0 Dehydration; J44.9 Chronic obstructive pulmonary disease, unspecified; K66.0 Peritoneal adhesions (postprocedural) (postinfection); F41.9 Anxiety disorder, unspecified; Z86.718 Personal history of other venous thrombosis and embolism; Z87.891 Personal history of nicotine dependence

== ENCOUNTER 2017-09-09 05:58 | Inpatient (IN) | payer MEDICARE ==
[2017-09-09 05:59] VITALS: BMI 13.7
--- NOTE | 2017-09-09 06:27 | C.PDOC ---
History Of Present Illness <Calos Leroy - Last Filed: 09/09/17 06:38> <Denisha Plascencia - Last Filed: 09/09/17 08:12> Patient is a 56 y/o female, with a Hx of pacreatitis, who presents to the ED with a complaint of epigastric discomfort since yesterday. Patient admits to taking Tylenol 3 and Percocet for pain. Patient believes epigastric pain to be related to pancreas. Notes eating a cheeseburger yesterday that was well- tolerated. Patient reports extensive pancreatitis and peripancreatitis tubular fluid collection in CT scan of january 2017. No other physical complaints at this time. (Calos Leroy) History Per: Patient History/Exam Limitations: no limitations Onset/Duration Of Symptoms: Days (yesterday) Current Symptoms Are (Timing): Still Present Location Of Pain/Discomfort: Epigastric Recent travel outside of the [place]: No <Calos Leroy - Last Filed: 09/09/17 06:38> <Denisha Plascencia - Last Filed: 09/09/17 08:12> Time Seen by Provider: 09/09/17 06:23 Chief Complaint (Nursing): Abdominal Pain Past Medical History Reviewed: Historical Data, Nursing Documentation, Vital Signs - Medical History PMH: COPD, Depression, Gall Bladder Disease (Cholelithiasis), Pancreatitis, Pneumonia (CHILDHOOD) Denies: Anxiety, Chronic Kidney Disease Surgical History: Endoscopy Family History: States: Unknown Family Hx - Social History Hx Tobacco Use: Yes Hx Alcohol Use: No Hx Substance Use: No - Immunization History Hx Tetanus Toxoid Vaccination: No Hx Influenza Vaccination: No Hx Pneumococcal Vaccination: No <Calos Leroy - Last Filed: 09/09/17 06:38> Vital Signs: Last Vital Signs Temp 98.2 F 09/09/17 06:05 Pulse 83 09/09/17 06:37 Resp 18 09/09/17 06:37 BP 127/79 09/09/17 06:37 Pulse Ox 94 L 09/09/17 06:45 - [facility] Procedures FLUOROSCOPY OF GALLBLADDER & BILE DUCT USING L OSM CONTRAST (06/23/17) INSERT INTERCOSTAL CATH (11/15/13) NON-INVASIVE MECHANICAL VENTILATION (11/15/13) PARENTERAL INFUSION OF CONCENTRATED NUT. SUBSTANCE (11/15/13) RELEASE PELVIC SUBCU/FASCIA, PERC APPROACH (06/23/17) RESECTION OF GALLBLADDER, PERCUTANEOUS ENDOSCOPIC APPROACH (06/23/17) THORACOSCOPIC DECORTICATION OF LUNG (11/15/13) TRANSFUSE NONAUT RED BLOOD CELLS IN PERIPH VEIN, PERC (06/23/17) Review Of Systems Gastrointestinal: Positive for: Abdominal Pain (epigastric) <Calos Leroy - Last Filed: 09/09/17 06:38> Physical Exam - Physical Exam Appears: Well, In Acute Distress, Other (thin, cachectic, wasted) Skin: No Normal Color, Warm, Dry, Other (sallow in color) Head: Atraumatic, Other (temporal wasting) Eye(s): bilateral: Scleral Icterus Oral Mucosa: Moist Chest: Symmetrical Cardiovascular: Rhythm Regular, No Murmur Respiratory: Normal Breath Sounds, No Rales, No Rhonchi, No Wheezing Gastrointestinal/Abdominal: Other (scaphoid, thin, firm) Extremity: Pedal Edema (trace pedal edema), Other <RadCalos - Last Filed: 09/09/17 06:38> ED Course And Treatment O2 Sat by Pulse Oximetry: 94 Progress Note: Plan: blood work, angio chest/abd CT, EKG, CXR, and UA ordered. Dilaudid and IV fluids administered. <Calos Leroy Last Filed: 09/09/17 06:38> - Laboratory Results Result Diagrams: 09/09/17 06:33 09/09/17 06:33 ECG: Interpreted By Az ECG Rhythm: Sinus Rhythm ECG Interpretation: Normal Rate From EC Pulse Ox Interpretation: Normal - Radiology CXR: Interpreted by [facility] CXR Interpretation: Yes: Other (R PLEURAL EFFUSION NEW COMPARED TO PRIOR) <Denisha Plascencia - Last Filed: 09/09/17 08:12> Progress <RadCalos Ruiz - Last Filed: 09/09/17 06:38> - Data Reviewed Data Reviewed: Lab, Diagnostic imaging, EKG, Old records <Denisha Plascencia - Last Filed: 09/09/17 08:12> - Re-Evaluation Re-evaluation Note: 09/09/17 08:03 APPEARS COMFORTABLE NAD. PENDING CT, MARY, LIPASE D/W DR BAKER AWARE OF ER FINDINGS, WILL ADMIT AND FU MARY,LIP, CT RESULTS 09/09/17 08:12 rn reports pt co flores after getting out of bed to use bathroom. 100% on 3l. pt requesting albuterol dose. pending cta (Denisha Plascencia) Disposition <Calos Leroy - Last Filed: 09/09/17 06:38> Counseled Patient/Family Regarding: Studies Performed, Diagnosis - Disposition Disposition Time: 08:07 - POA Present On Arrival: None <Denisha Plascencia - Last Filed: 09/09/17 08:12> - Disposition Disposition: HOSPITALIZED Condition: STABLE Forms: FileString (Indonesian) - Clinical Impression Clinical Impression: Abdominal pain, Pleural effusion - Scribe Statement The provider has reviewed the documentation as recorded by the Scribe <Calos Leroy - Last Filed: 09/09/17 06:38> <Denisha Plascencia - Last Filed: 09/09/17 08:12> - Scribe Statement Akiko Wilson All medical record entries made by the Scribe were at my direction and personally dictated by me. I have reviewed the chart and agree that the record accurately reflects my personal performance of the history, physical exam, medical decision making, and the department course for this patient. I have also personally directed, reviewed, and agree with the discharge instructions and disposition. (Calos Leroy) Decision To Admit <Calos Leroy - Last Filed: 09/09/17 06:38> - Pt Status Changed To: Hospital Disposition Of: Inpatient - Admit Certification Admit to Inpatient:: After my assessment, the patient will require hospitalization for at least two midnights. This is because of the severity of symptoms shown, intensity of services needed, and/or the medical risk in this patient being treated as an outpatient. - InPatient: Physician Admission Certification:: SEE NOTE - . Bed Request Type: Regular Admitting Physician: Connor Baker <Denisha Plascencia - Last Filed: 09/09/17 08:12> - . Patient Diagnosis: Abdominal pain, Pleural effusion
[2017-09-09] MEDS ORDERED: Sodium Chloride 0.9% 1,000 ML IV ONE ×2 (06:28→06:43)
[2017-09-09] MEDS ORDERED: HYDROmorphone 0.5 mg/0.5 ml ISec IVP STA (06:30)
[2017-09-09] MEDS ORDERED: Sodium Chloride 0.9% 1,000 ML ONE ×2 (06:33→07:31)
[2017-09-09] MEDS ORDERED: HYDROmorphone 0.5 mg/0.5 ml ISec ONE (06:33)
[2017-09-09 06:40] LABS: BASO # 0.1 K/uL (0.0-0.2); BASO % 0.6 % (0.0-2.0); EOS # 0.2 K/uL (0.0-0.7); EOS % 2.1 % (0.0-4.0); HEMATOCRIT 31.4 % (34.0-47.0); LYMPH # 1.1 K/uL (1.0-4.3); LYMPH % 10.6 % (20.0-40.0); MEAN CELL VOLUME 68.7 fL (81.0-99.0); MEAN CORPUSCULAR HEMOGLOBIN 20.8 pg (27.0-31.0); MEAN CORPUSCULAR HGB CONC 30.2 g/dL (33.0-37.0); MEAN PLATELET VOLUME 7.8 fL (7.2-11.7); RED CELL DISTRIBUTION WIDTH 19.1 % (11.5-14.5); WHITE BLOOD COUNT 10.3 K/uL (4.8-10.8)
[2017-09-09 06:49] LABS: INR 1.2
[2017-09-09 06:50] LABS: CHLORIDE 93 mmol/L (98-107); POTASSIUM 3.7 mmol/L (3.6-5.2); SODIUM 132 mmol/L (132-148)
[2017-09-09 06:52] LABS: AST/SGOT 34 U/L (14-36); BILIRUBIN,TOTAL 0.3 mg/dL (0.2-1.3); CARBON DIOXIDE 34 mmol/L (22-30); GFR AFRICAN-AMERICAN > 60
[2017-09-09 06:53] LABS: ALB/GLOB RATIO 0.9 (1.0-2.1); ALKALINE PHOSPHATASE 97 U/L (38-126); ALT/SGPT 45 U/L (9-52); BLOOD UREA NITROGEN 6 mg/dL (7-17); CALCIUM 8.2 mg/dl (8.6-10.4); GLUCOSE,RANDOM 85 mg/dL (65-105); TOTAL PROTEIN 7.1 g/dL (6.3-8.3)
[2017-09-09 07:09] LABS: RBC URINE 1 /hpf (0-3); URINE BACTERIA RARE (<OCC); URINE BILIRUBIN NEGATIVE (NEGATIVE); URINE BLOOD NEGATIVE (NEGATIVE); URINE COLOR Yellow (YELLOW); URINE GLUCOSE (UA) NORMAL (Normal); URINE KETONE NEGATIVE (NEGATIVE); URINE LEUKOCYTE ESTERASE 2+ Leu/uL (Negative); URINE PROTEIN NEGATIVE (NEGATIVE); URINE UROBILINOGEN NORMAL mg/dL (0.2-1.0); WBC URINE 12 /hpf (0-5)
--- NOTE | 2017-09-09 07:50 | RAD ---
PROCEDURE: CHEST RADIOGRAPH, 1 VIEW HISTORY: SOB COMPARISON: 06/18/2017 FINDINGS: LUNGS: Interval opacification of the inferior 1 right hemithoracic height now present. Interval large right pleural effusion with or without interval right subpulmonic effusion. A small gas pocket at the mid right lung zone noted. Infiltrate mass complex are all considerations. Left lungs clear. A mediastinal shift. Prior chest x-ray suggested background COPD. PLEURA: Interval large right pleural effusion. No pneumothorax. CARDIOVASCULAR: Normal. OSSEOUS STRUCTURES: No significant abnormalities. VISUALIZED UPPER ABDOMEN: Normal. OTHER FINDINGS: None. IMPRESSION: Interval large right pleural effusion breast without plate subpulmonic effusion. Inferred right basal compressive atelectasis. Additional concomitant underlying right lung base pathology infiltrates masses -not excluded. No mediastinal shift
[2017-09-09] MEDS ORDERED: Albuterol HFA 90 mcg/actuation (8 g) INH PRN (08:05)
[2017-09-09] MEDS ORDERED: Albuterol 0.083% Inhal Sol (2.5 mg/3 mL) UD INH STA (08:11)
[2017-09-09] MEDS ORDERED: Iodixanol 320 MG/ML 100 ML BOTTLE IV ONE (08:11)
[2017-09-09] MEDS ORDERED: Albuterol 0.083% Inhal Sol (2.5 mg/3 mL) UD ONE (08:16)
[2017-09-09 08:17] LABS: AMYLASE 608 U/L (30-110)
[2017-09-09] MEDS: Enoxaparin 30 mg Syringe SC SCH (10:12)
[2017-09-09] MEDS: HYDROmorphone 0.5 mg/0.5 ml ISec IVP PRN ×2 (10:23→17:01)
--- NOTE | 2017-09-09 11:41 | CT ---
CT abdomen and pelvis with IV contrast Indication: ? panc, ? mets Technique: Contiguous axial images of the chest, abdomen, and pelvis. Coronal and Sagittal reformats generated and reviewed. Oral contrast was administered. 100 mL Visipaque IV. This CT exam was performed using 1 or more of the falling dose reduction techniques: Automated exposure control, adjustment of the MAA and/or kV according to patient size, and/or use of iterative reconstruction technique. Radiation dose: Total exam DLP = 342.44 MGy-cm. Comparison: Chest x-ray performed 09/09/17, pancreatic protocol CT performed 01/27/17, abdomen ultrasound performed 12/11/16 Findings: Small filling defect within the right lobe pulmonary artery branch favored to reflect artifact however small thin linear embolus cannot be excluded. Large right pleural effusion associated consolidation. Limited study due to paucity of intra-abdominal and intrapelvic fat. Reidentified extensive peripancreatic fluid collections extending into the retrocrural region, gastroesophageal region and inferior mediastinum as on prior study, stable to slightly increased in extent. Cystic pancreatic lesions evident throughout the pancreas. Pancreatic duct is dilated measuring approximately 9 mm. The liver, spleen, and adrenal glands appear unremarkable. Cholecystectomy. The kidneys enhance symmetrically. No evidence of hydronephrosis or obstructing calculus. The stomach is nondistended. IVC filter. The bowel loops appear within normal limits of caliber without evidence of intestinal obstruction. There is no definite free air. Uterus is present. The urinary bladder appears unremarkable. Small pelvic free fluid. Osseous demineralization. Degenerative changes. Impression: Markedly limited study. Small filling defect within the right lobe pulmonary artery branch favored to reflect artifact however small thin linear embolus cannot be entirely excluded. Large right pleural effusion associated consolidation. Reidentified extensive peripancreatic fluid collections extending into the retrocrural region, gastroesophageal region and inferior mediastinum as on prior study, stable to slightly increased in extent. Cystic pancreatic lesions evident throughout the pancreas. Differential diagnosis includes cystic neoplasm versus sequela of prior pancreatitis (dilated side duct radicles or tiny pseudocyst). Pancreatic duct is dilated measuring approximately 9 mm. IVC filter. Small pelvic free fluid. Findings discussed with Dr. Zamora on 09/09/17 at 11:35 a.m.
[2017-09-09] MEDS: Potassium Ch 20mEq in D5-1/2NS 1,000 ML IV SCH (13:41)
[2017-09-09] MEDS: Piperacill/Tazo 3.375gm in Dex 3.375 GM/50 ML BAG IVPB SCH ×2 (13:42→21:41)
[2017-09-09] MEDS ORDERED: MethylPREDNISolone 40 mg Vial IVP STA (15:09)
[2017-09-09] MEDS ORDERED: Albuterol-Ipratrop 3 mg / 0.5 (3 ml) UD INH STA (15:12)
--- NOTE | 2017-09-09 15:17 | PCM.RRT ---
<Maximino Wallace - Last Filed: 09/09/17 15:33> HOSPITAL PLAN ADMINISTRATOR Nurses Assessment - Situation Date: 09/09/17 Time HOSPITAL PLAN ADMINISTRATOR was called: 15:05 HOSPITAL PLAN ADMINISTRATOR Location:: Med/Surg Room Number: 569-A HOSPITAL PLAN ADMINISTRATOR Reason for Call: O2 Saturation below 90% HOSPITAL PLAN ADMINISTRATOR Called By: RN - IV IV Inserted during HOSPITAL PLAN ADMINISTRATOR?: No IV Fluids Initiated During HOSPITAL PLAN ADMINISTRATOR?: No. Fluids were stopped - Respiratory HOSPITAL PLAN ADMINISTRATOR Delivery Method: BiPAP @%, Non Rebreather @% Received Nebulizer Treatments: Yes Was the Patient Ventilated with Bag/Mask 100% O2?: Yes Secretions Suctioned?: No Was the Patient Intubated?: No Was the Patient Placed on a Ventilator?: No - Medication Medications Administered During HOSPITAL PLAN ADMINISTRATOR: Solumedrol 40mg IVP. Duoneana m - Diagnostic Test Ordered EKG: No Chest X-Ray: No CT Scan: No Other Diagnostic Test Ordered: ABG - Stat Labs Ordered HOSPITAL PLAN ADMINISTRATOR Stat Labs Ordered: ABG CPR started during HOSPITAL PLAN ADMINISTRATOR?: No - Vital Signs Vital Signs: BP 159/81, 02 93%, - Sylvester Coma Scale Coma Scale Eye Opening: Spontaneous Coma Scale Motor: Obeys Commands Movement Coma Scale Verbal: Oriented Coma Scale Total: 15 - Time HOSPITAL PLAN ADMINISTRATOR Ended Time HOSPITAL PLAN ADMINISTRATOR Ended: 15:30 - Recommendations Notifications: Attending Physician (Dr. Yeh), Consultations (Dr. Lucero) - Constitutional Appears: Non-toxic, In Acute Distress - Head Head Exam: ATRAUMATIC, NORMAL INSPECTION, NORMOCEPHALIC - Eyes Eye Exam: EOMI, Normal appearance - Respiratory Exam Respiratory Exam: Accessory Muscle Use, Decreased Breath Sounds, Respiratory Distress. absent: Wheezes - Cardiovascular Exam Cardiovascular Exam: RRR, +S1, +S2 - GI/Abdominal Exam GI & Abdominal Exam: Soft. absent: Tenderness - Neurological Exam Neurological Exam: Alert, Awake Plan - Assessment of Findings&Treatment Plan O2 Sat @ 86% Solumedrol 40mg IVP Stat ABG Stat Face 100% non-rebreather BIPAP stat Pulm Consult (Dr. Lucero) Duonebs Stat Patient will go for thoracentesis Patient seen and discussed with Attending Maximino Wallace PGY-1 <Gracia Yeh V - Last Filed: 09/09/17 16:42> Attending/Attestation - Attestation I have personally seen and examined this patient.: Yes I have fully participated in the care of the patient.: Yes I have reviewed all pertinent clinical information, including history, physical exam and plan: Yes Notes (Text): Hospitalist note Responded to HOSPITAL PLAN ADMINISTRATOR for hypoxia noted at 86% on 3 Liters. patient admitted for pancreatitis, shortness of breathe with hx of COPD. Patient placed on ventimask , on exam, has decreased breathe sounds bilateral with poor air exchange. patient's primary compliant is shortness of breathe, denies cough, denies chest pain, denies palpitations. At bedside, given dose of Solumedrol 40mg IVP X1 and Duoneb treatment stat. Airway improved s/p initial treatment. Per discussion with HOLGER Lopez, patient had completed CT scan chest, abdomen, and pelvis; no PE per report (artifact) but patient has a large right pleural effusion. Dr. Lucero puldavid on consult was notified at time of rapid, recommend for ABG and will see the patient; reviewed CT scan; recommended for thoracentesis given large pleural effusion. Fluid studies ordered for anticipated thoracentesis. patient placed on Bipap 10/5 50% oxygen until thoracentesis is performed. Note: oxygen improved to 93-96% given Solumderol 40mg IVX1, patient feeling less short of breathe, able to speak w more ease compared to initial assessment when she would not speak with us. Patient's right peripheral line appears infiltrated, held iv fluids given blood pressure is stable. Nursing aware.
[2017-09-09 15:30] LABS: DRAW SITE RBA
[2017-09-09] MEDS ORDERED: Lidocaine 2% Inj (20ml) IV STA (15:59)
[2017-09-09] MEDS ORDERED: Lidocaine 2% Inj (20ml) ONE (16:04)
--- NOTE | 2017-09-09 16:59 | CP.PCM.CON ---
History of Present Illness - History of Present Illness History of Present Illness: Reason for consultation: Large pleural effusion 56-year-old female with history of pancreatitis presented to emergency room complaining of epigastric pain since yesterday. CAT scan of the chest consistent with large right-sided pleural effusion. Patient status post rapid response for shortness of breath. Patient was placed on BiPAP and had right thoracenteses done. 1200 mL off blood-tinged fluid removed. Patient elevate and responsive on BiPAP Review of Systems - Review of Systems All systems: reviewed and no additional remarkable complaints except (Shortness of breath and epigastric pain) Past Patient History - Infectious Disease Hx of Infectious Diseases: None - Past Medical History & Family History Past Medical History?: Yes - Past Social History Smoking Status: Former Smoker - CARDIAC Hx Cardiac Disorders: No - PULMONARY Hx Chronic Obstructive Pulmonary Disease (COPD): Yes Hx Pneumonia: Yes (CHILDHOOD) - NEUROLOGICAL Hx Neurological Disorder: No - HEENT Hx HEENT Problems: No - RENAL Hx Chronic Kidney Disease: No - ENDOCRINE/METABOLIC Hx Endocrine Disorders: No - HEMATOLOGICAL/ONCOLOGICAL Hx Blood Disorders: No Hx Blood Transfusions: Yes Hx Blood Transfusion Reaction: No Other/Comment: Hepatitis - INTEGUMENTARY Hx Dermatological Problems: No - MUSCULOSKELETAL/RHEUMATOLOGICAL Hx Musculoskeletal Disorders: No Hx Falls: No - GASTROINTESTINAL Hx Gall Bladder Disease: Yes (Cholelithiasis) Hx Pancreatitis: Yes - GENITOURINARY/GYNECOLOGICAL Hx Genitourinary Disorders: No Other/Comment: 1989 oophorectomy - PSYCHIATRIC Hx Anxiety: No Hx Depression: Yes Hx Substance Use: No - SURGICAL HISTORY Hx Surgeries: Yes Other/Comment: chesttube insertion-left 11/15/13 oopherectomy 1989 - ANESTHESIA Hx Anesthesia: Yes Hx Anesthesia Reactions: No Hx Malignant Hyperthermia: No Meds Allergies/Adverse Reactions: Allergies Allergy/AdvReac Type Severity Reaction Status Date / Time No Known Allergies Allergy Verified 09/09/17 06:11 - Medications Medications: Current Medications Albuterol/Ipratropium (Duoneb 3 Mg/0.5 Mg (3 Ml) Ud) 3 ml INH RQ6 MARY Clonazepam (Klonopin) 1 mg PO BID [facility] Last Admin: 09/09/17 10:12 Dose: 1 mg Enoxaparin Sodium (Lovenox) 30 mg SC DAILY [facility] Last Admin: 09/09/17 10:12 Dose: 30 mg Famotidine (Pepcid) 20 mg IVP Q12 [facility] Last Admin: 09/09/17 10:12 Dose: 20 mg Hydromorphone HCl (Dilaudid) 0.5 mg IVP Q6H PRN PRN Reason: Pain, moderate (4-7) Last Admin: 09/09/17 10:23 Dose: 0.5 mg Potassium Chloride/Dextrose/Sod Cl (Potassium Chl 20 Meq In D5-1/2ns) 1,000 mls @ 100 mls/hr IV .Q10H [facility] Last Admin: 09/09/17 13:41 Dose: 100 mls/hr Piperacillin Sod/Tazobactam Sod (Zosyn 3.375 Gm Iv Premix) 3.375 gm in 50 mls @ 100 mls/hr IVPB Q8 [facility] Last Admin: 09/09/17 13:42 Dose: 100 mls/hr Trazodone HCl (Desyrel) 50 mg PO HS [facility] Physical Exam - Head Exam Head Exam: ATRAUMATIC, NORMOCEPHALIC - ENT Exam ENT Exam: Mucous Membranes Moist - Neck Exam Neck exam: Positive for: Normal Inspection - Respiratory Exam Respiratory Exam: Decreased Breath Sounds - Cardiovascular Exam Cardiovascular Exam: REGULAR RHYTHM - GI/Abdominal Exam GI & Abdominal Exam: Normal Bowel Sounds, Soft - Extremities Exam Extremities exam: Positive for: normal inspection - Neurological Exam Neurological exam: Alert, Oriented x3 Results - Vital Signs Recent Vital Signs: Last Vital Signs Temp 97.6 F 09/09/17 16:50 Pulse 76 09/09/17 16:50 Resp 20 09/09/17 16:50 BP 102/69 09/09/17 16:50 Pulse Ox 100 09/09/17 16:50 - Labs Result Diagrams: 09/09/17 06:33 09/09/17 06:33 Labs: Laboratory Results - last 24 hr 09/09/17 09/09/17 09/09/17 06:33 06:33 06:33 WBC 10.3 RBC 4.57 Hgb 9.5 L Hct 31.4 L MCV 68.7 L D MCH 20.8 L MCHC 30.2 L RDW 19.1 H Plt Count 469 H D MPV 7.8 Neut % (Auto) 76.7 H Lymph % (Auto) 10.6 L [place] % (Auto) 10.0 Eos % (Auto) 2.1 Baso % (Auto) 0.6 Neut # 7.9 H Lymph # 1.1 [place] # 1.0 H Eos # 0.2 Baso # 0.1 PT 13.4 H INR 1.2 APTT 36 H Puncture Site pCO2 pO2 HCO3 ABG pH ABG Total CO2 ABG O2 Saturation ABG Base Excess Eric Test ABG Potassium A-a O2 Difference Respiratory Index Glucose Lactate Liter Flow FiO2 Crit Value Called To Crit Value Called By Crit Value Read Back Blood Gas Notified Time Sodium 132 Potassium 3.7 Chloride 93 L Carbon Dioxide 34 H Anion Gap 9 L BUN 6 L Creatinine 0.5 L Est GFR ( Amer) > 60 Est GFR (Non-Af Amer) > 60 POC Glucose (mg/dL) Random Glucose 85 Calcium 8.2 L Total Bilirubin 0.3 AST 34 ALT 45 Alkaline Phosphatase 97 Lactate Dehydrogenase Troponin I < 0.0120 NT-Pro-B Natriuret Pep 213 Total Protein 7.1 Albumin 3.3 L D Globulin 3.8 Albumin/Globulin Ratio 0.9 L Amylase Lipase Arterial Blood Potassium Urine Color Urine Clarity Urine pH Ur Specific [place] Urine Protein Urine Glucose (UA) Urine Ketones Urine Blood Urine Nitrate Urine Bilirubin Urine Urobilinogen Ur Leukocyte Esterase Urine WBC (Auto) Urine RBC (Auto) Ur Squamous Epith Cells Urine Bacteria Urine HCG, Qual Urine Opiates Screen Urine Methadone Screen Ur Barbiturates Screen Ur Phencyclidine Scrn Ur Amphetamines Screen U Benzodiazepines Scrn U Oth Cocaine Metabols U Cannabinoids Screen 09/09/17 09/09/17 09/09/17 06:51 06:53 08:04 WBC RBC Hgb Hct MCV MCH MCHC RDW Plt Count MPV Neut % (Auto) Lymph % (Auto) [place] % (Auto) Eos % (Auto) Baso % (Auto) Neut # Lymph # [place] # Eos # Baso # PT INR APTT Puncture Site pCO2 pO2 HCO3 ABG pH ABG Total CO2 ABG O2 Saturation ABG Base Excess Eric Test ABG Potassium A-a O2 Difference Respiratory Index Glucose Lactate Liter Flow FiO2 Crit Value Called To Crit Value Called By Crit Value Read Back Blood Gas Notified Time Sodium Potassium Chloride Carbon Dioxide Anion Gap BUN Creatinine Est GFR ( Amer) Est GFR (Non-Af Amer) POC Glucose (mg/dL) Random Glucose Calcium Total Bilirubin AST ALT Alkaline Phosphatase Lactate Dehydrogenase 643 H Troponin I NT-Pro-B Natriuret Pep Total Protein Albumin Globulin Albumin/Globulin Ratio Amylase 608 H D Lipase 3657 H Arterial Blood Potassium Urine Color Yellow Urine Clarity Clear Urine pH 6.0 Ur Specific [place] 1.008 Urine Protein Negative Urine Glucose (UA) Normal Urine Ketones Negative Urine Blood Negative Urine Nitrate Negative Urine Bilirubin Negative Urine Urobilinogen Normal Ur Leukocyte Esterase 2+ H Urine WBC (Auto) 12 H Urine RBC (Auto) 1 Ur Squamous Epith Cells 1 Urine Bacteria Rare Urine HCG, Qual Negative Urine Opiates Screen Positive Urine Methadone Screen Negative Ur Barbiturates Screen Negative Ur Phencyclidine Scrn Negative Ur Amphetamines Screen Negative U Benzodiazepines Scrn Negative U Oth Cocaine Metabols Negative U Cannabinoids Screen Negative 09/09/17 09/09/17 15:06 15:25 WBC RBC Hgb Hct MCV MCH MCHC RDW Plt Count MPV Neut % (Auto) Lymph % (Auto) [place] % (Auto) Eos % (Auto) Baso % (Auto) Neut # Lymph # [place] # Eos # Baso # PT INR APTT Puncture Site Rba pCO2 79 H* pO2 262 H HCO3 26.6 ABG pH 7.22 L ABG Total CO2 34.7 H ABG O2 Saturation 100.9 H ABG Base Excess 2.1 Eric Test Na ABG Potassium 3.5 L A-a O2 Difference 352.0 Respiratory Index 1.3 Glucose 90 Lactate 0.4 L Liter Flow 15.0 FiO2 100.0 Crit Value Called To [facility] aviculturist Crit [facility] Crit Value Read Back Y Blood Gas Notified Time 1529 Sodium 136.0 Potassium Chloride 107.0 Carbon Dioxide Anion Gap BUN Creatinine Est GFR ( Amer) Est GFR (Non-Af Amer) POC Glucose (mg/dL) 112 H Random Glucose Calcium Total Bilirubin AST ALT Alkaline Phosphatase Lactate Dehydrogenase Troponin I NT-Pro-B Natriuret Pep Total Protein Albumin Globulin Albumin/Globulin Ratio Amylase Lipase Arterial Blood Potassium 3.5 L Urine Color Urine Clarity Urine pH Ur Specific [place] Urine Protein Urine Glucose (UA) Urine Ketones Urine Blood Urine Nitrate Urine Bilirubin Urine Urobilinogen Ur Leukocyte Esterase Urine WBC (Auto) Urine RBC (Auto) Ur Squamous Epith Cells Urine Bacteria Urine HCG, Qual Urine Opiates Screen Urine Methadone Screen Ur Barbiturates Screen Ur Phencyclidine Scrn Ur Amphetamines Screen U Benzodiazepines Scrn U Oth Cocaine Metabols U Cannabinoids Screen Assessment & Plan (1) Pleural effusion Status: Acute Comment: Large right-sided pleural effusion, status post thoracentesis and 1200 mL of blood-tinged fluid removed. Fluid analysis. Continue BiPAP. Follow-up ABG (2) Hypercapnic respiratory failure Status: Acute
--- NOTE | 2017-09-09 17:01 | RAD ---
HISTORY: s/p thoracentesis COMPARISON: 09/09/2017 at 0645 hours FINDINGS: LUNGS: The size of the right inferior hemithoracic pleural effusion is slightly decreased. There is improved aeration over the superior border of the right effusion. Is less dense opacity for from combine infiltrate passive compressive atelectasis since the prior exam. Tubing projects over medial right abraham thorax. Correlate clinically. Left lung is clear as before PLEURA: No interval pneumothorax apparent. Interval change in right pleural fluid as above CARDIOVASCULAR: Normal. OSSEOUS STRUCTURES: No significant abnormalities. VISUALIZED UPPER ABDOMEN: Normal. OTHER FINDINGS: None. IMPRESSION: Status post right thoracentesis with interval decrease right pleural effusion. Some improved aeration suggested along the superior border. Residual right pleural fluid/ residual passive compressive atelectasis right base with or without infiltrate inferred. No interval pneumothorax
[2017-09-09] MEDS: Albuterol-Ipratrop 3 mg / 0.5 (3 ml) UD INH SCH (20:44)
[2017-09-09] MEDS: LIPASE/PROTEASE/AMYLASE 4,200 U ECC PO SCH (21:43)
--- NOTE | 2017-09-09 23:00 | CP.PCM.HP ---
History of Present Illness - History of Present Illness History of Present Illness: CC: abdominal pain HPI: 56-year-old AA female with history of pancreatitis, chronic recurrent upper abdominal pain, chronic heavy smoker, non comlaint to diet, medicationa nd follow up presented to emergency room complaining of epigastric pain since yesterday. CAT scan of the chest consistent with large right-sided pleural effusion. Patient status post rapid response for shortness of breath. Patient was placed on BiPAP and had right thoracenteses done. 1200 mL off blood-tinged fluid removed. Patient elevate and responsive on BiPAP Present on Admission - Present on Admission Any Indicators Present on Admission: Yes Review of Systems - Review of Systems Systems not reviewed;Unavailable: Acuity of Condition, Respiratory Distress - Constitutional Constitutional: Fatigue, Malaise, Weakness - EENT Eyes: absent: As Per HPI, Blind Spots, Blurred Vision, Change in Vision, Decreased Night Vision, Diplopia, Discharge, Dry Eye, Exophthalmos, Floaters, Irritation, Itchy Eyes, Loss of Peripheral Vision, Pain, Photophobia, Requires Corrective Lenses, Sees Flashes, Spots in Vision, Tunnel Vision, Other Visual Disturbances, Loss of Vision, Other Nose/Mouth/Throat: absent: As Per HPI, Epistaxis, Nasal Congestion, Nasal Discharge, Nasal Obstruction, Nasal Trauma, Nose Pain, Post Nasal Drip, Sinus Pain, Sinus Pressure, Bleeding Gums, Change in Voice, Dental Pain, Dry Mouth, Dysphagia, Halitosis, Hoarsness, Lip Swelling, Mouth Lesions, Mouth Pain, Odynophagia, Sore Throat, Throat Swelling, Tongue Swelling, Facial Pain, Neck Pain, Neck Mass, Other - Cardiovascular Cardiovascular: absent: As Per HPI, Acrocyanosis, Chest Pain, Chest Pain at Rest , Chest Pain with Activity, Claudication, Diaphoresis, Dyspnea, Dyspnea on Exertion, Edema, Irregular Heart Rhythm, Pain Radiating to Arm/Neck/Jaw, Leg Edema, Leg Ulcers, Lightheadedness, Orthopnea, Palpitations, Paroxysmal Nocturnal Dyspnea, Pedal Edema, Radiating Pain, Rapid Heart Rate, Slow Heart Rate, Syncope, Other - Respiratory Respiratory: absent: As Per HPI, Cough, Dyspnea, Hemoptysis, Dyspnea on Exertion , Wheezing, Snoring, Stridor, Pain on Inspiration, Chest Congestion, Excessive Mucous Production, Change in Mucous Color, Pain with Coughing, Other - Gastrointestinal Gastrointestinal: Abdominal Pain - Genitourinary Genitourinary: absent: As Per HPI, Change in Urinary Stream, Difficulty Urinating, Dysuria, Flank Pain, Hematuria, Pyuria, Nocturia, Urinary Incontinence, Urinary Frequency, Urinary Hesitance, Urinary Urgency, Voiding Freq/Small Amts, Freq UTI, Hx Renal/Bladder Calculi, Hx /Renal Surgery, Bladder Distension, Other Past Patient History - Infectious Disease Hx of Infectious Diseases: None - Past Medical History & Family History Past Medical History?: Yes - Past Social History Smoking Status: Former Smoker - CARDIAC Hx Cardiac Disorders: No - PULMONARY Hx Chronic Obstructive Pulmonary Disease (COPD): Yes Hx Pneumonia: Yes (CHILDHOOD) - NEUROLOGICAL Hx Neurological Disorder: No - HEENT Hx HEENT Problems: No - RENAL Hx Chronic Kidney Disease: No - ENDOCRINE/METABOLIC Hx Endocrine Disorders: No - HEMATOLOGICAL/ONCOLOGICAL Hx Blood Disorders: No Hx Blood Transfusions: Yes Hx Blood Transfusion Reaction: No Other/Comment: Hepatitis - INTEGUMENTARY Hx Dermatological Problems: No - MUSCULOSKELETAL/RHEUMATOLOGICAL Hx Musculoskeletal Disorders: No Hx Falls: No - GASTROINTESTINAL Hx Gall Bladder Disease: Yes (Cholelithiasis) Hx Pancreatitis: Yes - GENITOURINARY/GYNECOLOGICAL Hx Genitourinary Disorders: No Other/Comment: 1989 oophorectomy - PSYCHIATRIC Hx Anxiety: No Hx Depression: Yes Hx Substance Use: No - SURGICAL HISTORY Hx Surgeries: Yes Other/Comment: chesttube insertion-left 11/15/13 oopherectomy 1989 - ANESTHESIA Hx Anesthesia: Yes Hx Anesthesia Reactions: No Hx Malignant Hyperthermia: No Meds Allergies/Adverse Reactions: Allergies Allergy/AdvReac Type Severity Reaction Status Date / Time No Known Allergies Allergy Verified 09/09/17 06:11 Physical Exam - Constitutional Appears: No Acute Distress - Head Exam Head Exam: ATRAUMATIC, NORMAL INSPECTION, NORMOCEPHALIC - ENT Exam ENT Exam: Mucous Membranes Moist, Normal Exam - Neck Exam Neck exam: Positive for: Normal Inspection - Respiratory Exam Respiratory Exam: Clear to Auscultation Bilateral, NORMAL BREATHING PATTERN - Cardiovascular Exam Cardiovascular Exam: REGULAR RHYTHM - GI/Abdominal Exam GI & Abdominal Exam: Tenderness - Rectal Exam Rectal Exam: Deferred Results - Vital Signs Recent Vital Signs: Last Vital Signs Temp 97.6 F 09/09/17 16:50 Pulse 76 09/09/17 16:50 Resp 20 09/09/17 16:50 BP 102/69 09/09/17 16:50 Pulse Ox 100 09/09/17 16:50 - Labs Result Diagrams: 09/09/17 06:33 09/09/17 06:33 Labs: Laboratory Results - last 24 hr 09/09/17 09/09/17 09/09/17 06:33 06:33 06:33 WBC 10.3 RBC 4.57 Hgb 9.5 L Hct 31.4 L MCV 68.7 L D MCH 20.8 L MCHC 30.2 L RDW 19.1 H Plt Count 469 H D MPV 7.8 Neut % (Auto) 76.7 H Lymph % (Auto) 10.6 L [place] % (Auto) 10.0 Eos % (Auto) 2.1 Baso % (Auto) 0.6 Neut # 7.9 H Lymph # 1.1 [place] # 1.0 H Eos # 0.2 Baso # 0.1 PT 13.4 H INR 1.2 APTT 36 H Puncture Site pCO2 pO2 HCO3 ABG pH ABG Total CO2 ABG O2 Saturation ABG Base Excess Eric Test ABG Potassium A-a O2 Difference Respiratory Index Glucose Lactate Liter Flow FiO2 Crit Value Called To Crit Value Called By Crit Value Read Back Blood Gas Notified Time Sodium 132 Potassium 3.7 Chloride 93 L Carbon Dioxide 34 H Anion Gap 9 L BUN 6 L Creatinine 0.5 L Est GFR ( Amer) > 60 Est GFR (Non-Af Amer) > 60 POC Glucose (mg/dL) Random Glucose 85 Calcium 8.2 L Total Bilirubin 0.3 AST 34 ALT 45 Alkaline Phosphatase 97 Lactate Dehydrogenase Troponin I < 0.0120 NT-Pro-B Natriuret Pep 213 Total Protein 7.1 Albumin 3.3 L D Globulin 3.8 Albumin/Globulin Ratio 0.9 L Amylase Lipase Arterial Blood Potassium Urine Color Urine Clarity Urine pH Ur Specific [place] Urine Protein Urine Glucose (UA) Urine Ketones Urine Blood Urine Nitrate Urine Bilirubin Urine Urobilinogen Ur Leukocyte Esterase Urine WBC (Auto) Urine RBC (Auto) Ur Squamous Epith Cells Urine Bacteria Urine HCG, Qual Urine Opiates Screen Urine Methadone Screen Ur Barbiturates Screen Ur Phencyclidine Scrn Ur Amphetamines Screen U Benzodiazepines Scrn U Oth Cocaine Metabols U Cannabinoids Screen 09/09/17 09/09/17 09/09/17 06:51 06:53 08:04 WBC RBC Hgb Hct MCV MCH MCHC RDW Plt Count MPV Neut % (Auto) Lymph % (Auto) [place] % (Auto) Eos % (Auto) Baso % (Auto) Neut # Lymph # [place] # Eos # Baso # PT INR APTT Puncture Site pCO2 pO2 HCO3 ABG pH ABG Total CO2 ABG O2 Saturation ABG Base Excess Eric Test ABG Potassium A-a O2 Difference Respiratory Index Glucose Lactate Liter Flow FiO2 Crit Value Called To Crit Value Called By Crit Value Read Back Blood Gas Notified Time Sodium Potassium Chloride Carbon Dioxide Anion Gap BUN Creatinine Est GFR ( Amer) Est GFR (Non-Af Amer) POC Glucose (mg/dL) Random Glucose Calcium Total Bilirubin AST ALT Alkaline Phosphatase Lactate Dehydrogenase 643 H Troponin I NT-Pro-B Natriuret Pep Total Protein Albumin Globulin Albumin/Globulin Ratio Amylase 608 H D Lipase 3657 H Arterial Blood Potassium Urine Color Yellow Urine Clarity Clear Urine pH 6.0 Ur Specific [place] 1.008 Urine Protein Negative Urine Glucose (UA) Normal Urine Ketones Negative Urine Blood Negative Urine Nitrate Negative Urine Bilirubin Negative Urine Urobilinogen Normal Ur Leukocyte Esterase 2+ H Urine WBC (Auto) 12 H Urine RBC (Auto) 1 Ur Squamous Epith Cells 1 Urine Bacteria Rare Urine HCG, Qual Negative Urine Opiates Screen Positive Urine Methadone Screen Negative Ur Barbiturates Screen Negative Ur Phencyclidine Scrn Negative Ur Amphetamines Screen Negative U Benzodiazepines Scrn Negative U Oth Cocaine Metabols Negative U Cannabinoids Screen Negative 09/09/17 09/09/17 15:06 15:25 WBC RBC Hgb Hct MCV MCH MCHC RDW Plt Count MPV Neut % (Auto) Lymph % (Auto) [place] % (Auto) Eos % (Auto) Baso % (Auto) Neut # Lymph # [place] # Eos # Baso # PT INR APTT Puncture Site Rba pCO2 79 H* pO2 262 H HCO3 26.6 ABG pH 7.22 L ABG Total CO2 34.7 H ABG O2 Saturation 100.9 H ABG Base Excess 2.1 Eric Test Na ABG Potassium 3.5 L A-a O2 Difference 352.0 Respiratory Index 1.3 Glucose 90 Lactate 0.4 L Liter Flow 15.0 FiO2 100.0 Crit 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 Crit Value Called By Ryan Crit Value Read Back Y Blood Gas Notified Time 1529 Sodium 136.0 Potassium Chloride 107.0 Carbon Dioxide Anion Gap BUN Creatinine Est GFR ( Amer) Est GFR (Non-Af Amer) POC Glucose (mg/dL) 112 H Random Glucose Calcium Total Bilirubin AST ALT Alkaline Phosphatase Lactate Dehydrogenase Troponin I NT-Pro-B Natriuret Pep Total Protein Albumin Globulin Albumin/Globulin Ratio Amylase Lipase Arterial Blood Potassium 3.5 L Urine Color Urine Clarity Urine pH Ur Specific [place] Urine Protein Urine Glucose (UA) Urine Ketones Urine Blood Urine Nitrate Urine Bilirubin Urine Urobilinogen Ur Leukocyte Esterase Urine WBC (Auto) Urine RBC (Auto) Ur Squamous Epith Cells Urine Bacteria Urine HCG, Qual Urine Opiates Screen Urine Methadone Screen Ur Barbiturates Screen Ur Phencyclidine Scrn Ur Amphetamines Screen U Benzodiazepines Scrn U Oth Cocaine Metabols U Cannabinoids Screen Assessment & Plan (1) Abdominal pain Status: Acute (2) Pleural effusion Status: Acute (3) Acute pancreatitis Status: Acute (4) Dehydration Status: Acute - Assessment and Plan (Free Text) Plan: Admit pt detail orders written
[2017-09-10] MEDS: Albuterol-Ipratrop 3 mg / 0.5 (3 ml) UD INH SCH ×4 (02:15→20:22)
[2017-09-10] MEDS: Potassium Ch 20mEq in D5-1/2NS 1,000 ML IV SCH ×2 (04:35→14:15)
[2017-09-10] MEDS: Piperacill/Tazo 3.375gm in Dex 3.375 GM/50 ML BAG IVPB SCH ×3 (05:35→22:56)
[2017-09-10 08:07] LABS: MEAN CELL VOLUME 68.5 fL (81.0-99.0); MONO # 0.8 K/uL (0.0-0.8); NRBC % 0.1 % (0.0-2.0)
[2017-09-10 08:13] LABS: BASO % 0.5 % (0.0-2.0); EOS % 0.6 % (0.0-4.0); LYMPH # 0.9 K/uL (1.0-4.3); LYMPH % 13.5 % (20.0-40.0); MEAN CORPUSCULAR HEMOGLOBIN 20.5 pg (27.0-31.0); MEAN CORPUSCULAR HGB CONC 29.9 g/dL (33.0-37.0); MEAN PLATELET VOLUME 7.8 fL (7.2-11.7); MONO % 11.3 % (0.0-10.0); RED CELL DISTRIBUTION WIDTH 19.3 % (11.5-14.5); WHITE BLOOD COUNT 6.7 K/uL (4.8-10.8)
[2017-09-10 08:24] LABS: CHLORIDE 101 mmol/L (98-107)
[2017-09-10 08:25] LABS: POTASSIUM 3.7 mmol/L (3.6-5.2); SODIUM 132 mmol/L (132-148)
[2017-09-10 08:27] LABS: AMYLASE 224 U/L (30-110); AST/SGOT 20 U/L (14-36); BILIRUBIN,TOTAL 0.4 mg/dL (0.2-1.3); BLOOD UREA NITROGEN 5 mg/dL (7-17); CARBON DIOXIDE 29 mmol/L (22-30); GFR AFRICAN-AMERICAN > 60; TOTAL PROTEIN 4.1 g/dL (6.3-8.3)
[2017-09-10 08:28] LABS: ALKALINE PHOSPHATASE 63 U/L (38-126); ALT/SGPT 27 U/L (9-52); GLUCOSE,RANDOM 92 mg/dL (65-105)
[2017-09-10 09:32] LABS: ARTERIAL BLOOD HGB O2 SAT 95.8 % (95.0-98.0); CARBOXYHEMOGLOBIN 2.4 % (0.5-1.5); DRAW SITE RB; HHB 0.3 % (0.0-5.0); METHEMOGLOBIN 1.5 % (0.0-3.0)
[2017-09-10] MEDS: LIPASE/PROTEASE/AMYLASE 4,200 U ECC PO SCH ×3 (10:32→19:00)
[2017-09-10] MEDS: HYDROmorphone 0.5 mg/0.5 ml ISec IVP PRN ×3 (10:33→23:08)
[2017-09-10] MEDS: Enoxaparin 30 mg Syringe SC SCH (10:48)
--- NOTE | 2017-09-10 11:23 | CARD ---
APPROVED REPORT EKG Measurement Heart [id number] <Conclusion> Normal sinus rhythm Rightward axis low voltage Abnormal QRS-T angle, consider primary T wave abnormality Abnormal ECG
[2017-09-10 12:19] LABS: IRON 14 ug/dL (37-170)
--- NOTE | 2017-09-10 13:22 | CP.PCM.PN ---
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 awake alert, ox3, states sob improved , denies any chest pain, N/V c/o abdominal pain amylase/lipase trending down -224/594 hgb - 7.5 s/p thoracentesis yesterday - 1.2 lit. fluid removed Objective - Vital Signs/Intake and Output Vital Signs (last 24 hours): Temp Pulse Resp BP Pulse Ox 98.0 F 86 16 97/62 L 99 09/10/17 09:02 09/10/17 10:34 09/10/17 09:02 09/10/17 10:34 09/10/17 08:08 Intake and Output: 09/10/17 09/10/17 06:59 18:59 Intake Total 800 Balance 800 - Medications Medications: Current Medications Albuterol/Ipratropium (Duoneb 3 Mg/0.5 Mg (3 Ml) Ud) 3 ml INH RQ6 [facility] Last Admin: 09/10/17 13:14 Dose: 3 ml Clonazepam (Klonopin) 1 mg PO BID [facility] Last Admin: 09/10/17 10:31 Dose: Not Given Enoxaparin Sodium (Lovenox) 30 mg SC DAILY [facility] Last Admin: 09/10/17 10:48 Dose: Not Given Famotidine (Pepcid) 20 mg IVP Q12 [facility] Last Admin: 09/10/17 10:33 Dose: 20 mg Hydromorphone HCl (Dilaudid) 0.5 mg IVP Q6H PRN PRN Reason: Pain, moderate (4-7) Last Admin: 09/10/17 10:33 Dose: 0.5 mg Potassium Chloride/Dextrose/Sod Cl (Potassium Chl 20 Meq In D5-1/2ns) 1,000 mls @ 100 mls/hr IV .Q10H [facility] Last Admin: 09/10/17 04:35 Dose: 100 mls/hr Piperacillin Sod/Tazobactam Sod (Zosyn 3.375 Gm Iv Premix) 3.375 gm in 50 mls @ 100 mls/hr IVPB Q8 [facility] Last Admin: 09/10/17 05:35 Dose: 100 mls/hr Trazodone HCl (Desyrel) 50 mg PO HS [facility] Last Admin: 09/09/17 21:41 Dose: 50 mg - Labs Labs: 09/10/17 07:56 09/10/17 07:56 PT 13.4 SECONDS (9.7-12.2) H 09/09/17 06:33 INR 1.2 09/09/17 06:33 APTT 36 SECONDS (21-34) H 09/09/17 06:33 - Constitutional Appears: Non-toxic, No Acute Distress, Older Than Stated Age - Respiratory Exam Respiratory Exam: Decreased Breath Sounds, Rales, NORMAL BREATHING PATTERN - Cardiovascular Exam Cardiovascular Exam: REGULAR RHYTHM, +S1, +S2 - GI/Abdominal Exam GI & Abdominal Exam: Soft, Tenderness (RUQ), Normal Bowel Sounds - Neurological Exam Neurological Exam: Alert, Awake, Oriented x3 Assessment and Plan - Assessment and Plan (Free Text) Assessment: a/p 56 YR OLD FEMALE WITH pmhx of COPD, Depression, , Pancreatitis, admitted for abdominal pain and acute pancritits CT SHOWED - LARGE AMT OF R PLEURAL EFFUSION s/p thoracentesis yesterday and removed 1.2 lit of fluid hgb today - 7. 6 drops from 9.5 Plan: 1.Pancritis- improving - amylase/ lipase tending down Dr. Olson on consult 2. R pleural effusion s/p Thoracentesis , will monitor BIPAP 3. Anemia- pt symptomatic will transfuse 1 unit of PRBC and repeat labs in am will start ferrlicit iv for iorn def. anemia The above plan discussed with Dr. Baker and agrees with plan
--- NOTE | 2017-09-10 16:08 | CP.PCM.PN ---
Subjective - Date & Time of Evaluation Date of Evaluation: 09/10/17 Time of Evaluation: 15:00 - Subjective Subjective: Patient seen and examined Breathing much better Status post thoracentesis Afebrile Objective - Vital Signs/Intake and Output Vital Signs (last 24 hours): Temp Pulse Resp BP Pulse Ox 98.1 F 88 18 107/67 97 09/10/17 15:33 09/10/17 15:33 09/10/17 15:33 09/10/17 15:33 09/10/17 15:33 Intake and Output: 09/10/17 09/10/17 06:59 18:59 Intake Total 922 Balance 922 - Medications Medications: Current Medications Albuterol/Ipratropium (Duoneb 3 Mg/0.5 Mg (3 Ml) Ud) 3 ml INH RQ6 [facility] Last Admin: 09/10/17 13:14 Dose: 3 ml Clonazepam (Klonopin) 1 mg PO BID [facility] Last Admin: 09/10/17 10:31 Dose: Not Given Enoxaparin Sodium (Lovenox) 30 mg SC DAILY [facility] Last Admin: 09/10/17 10:48 Dose: Not Given Famotidine (Pepcid) 20 mg IVP Q12 [facility] Last Admin: 09/10/17 10:33 Dose: 20 mg Hydromorphone HCl (Dilaudid) 0.5 mg IVP Q6H PRN PRN Reason: Pain, moderate (4-7) Last Admin: 09/10/17 10:33 Dose: 0.5 mg Potassium Chloride/Dextrose/Sod Cl (Potassium Chl 20 Meq In D5-1/2ns) 1,000 mls @ 100 mls/hr IV .Q10H [facility] Last Admin: 09/10/17 04:35 Dose: 100 mls/hr Piperacillin Sod/Tazobactam Sod (Zosyn 3.375 Gm Iv Premix) 3.375 gm in 50 mls @ 100 mls/hr IVPB Q8 [facility] Last Admin: 09/10/17 05:35 Dose: 100 mls/hr Trazodone HCl (Desyrel) 50 mg PO HS [facility] Last Admin: 09/09/17 21:41 Dose: 50 mg - Labs Labs: 09/10/17 07:56 09/10/17 07:56 PT 13.4 SECONDS (9.7-12.2) H 09/09/17 06:33 INR 1.2 09/09/17 06:33 APTT 36 SECONDS (21-34) H 09/09/17 06:33 - Head Exam Head Exam: ATRAUMATIC, NORMOCEPHALIC - Eye Exam Eye Exam: Normal appearance - ENT Exam ENT Exam: Mucous Membranes Moist - Neck Exam Neck Exam: Normal Inspection - Respiratory Exam Respiratory Exam: Decreased Breath Sounds - Cardiovascular Exam Cardiovascular Exam: REGULAR RHYTHM - GI/Abdominal Exam GI & Abdominal Exam: Soft, Normal Bowel Sounds Assessment and Plan (1) Pleural effusion Assessment & Plan: Status post thoracentesis and 1200 mL of blood-tinged fluid removed awaiting fluid analysis report Follow-up chest x-ray Status: Acute (2) Hypercapnic respiratory failure Status: Acute
[2017-09-10 16:35] LABS: BODY FLUID TYPE PLEURAL
[2017-09-10 17:45] LABS: BF GROSS APPEARANCE BLOODY (CLEAR)
[2017-09-10 17:47] LABS: BODY FLUID TOTAL COUNT 100 (0-0)
--- NOTE | 2017-09-10 18:06 | PN ---
DATE: LOCATION: [facility], bed A. SUBJECTIVE: This is a 56-year-old female, seen initially for GI consultation on 09/09/2017 as requested by the admitting medical staff, re-examined again today with generalized weakness and malaise as well as episode of hypotension. Complaining of generalized pain. It was reported that the patient's hemoglobin and hematocrit subsequently dropped furthermore without any clear evidence of active bleeding for which blood transfusion was ordered. The entire chart is reviewed including but not limited to the most recent lab and radiology study results, current and previous medication list, current and previous medical events. Today's lab showed blood count of hemoglobin 7.5, hematocrit 25.0 with low indices highly suggestive of hypochromic, macrocytic anemia with thrombocytosis of 417 and abnormal ABGs with low BUN and creatinine, low calcium of 7, blood glucose level 112 with low total protein 4.1, low albumin 2.2 with amylase 224 and lipase 594. Abdomen and pelvic CAT scan done yesterday, report is seen. PHYSICAL EXAMINATION: GENERAL: A 56-year-old female appeared to be awake, alert, complaining of generalized weakness. VITAL SIGNS: Afebrile with pulse of 82, respiratory rate 18 to 20, blood pressure 100/64. HEENT: Showed pale, dry oral mucoid membrane. Nonicteric sclerae. LUNGS: Scattered crepitation, decreased air entry at bases. HEART: Positive S1 and S2 with increased rate. ABDOMEN: Soft with slight distension and [id number] generalized tenderness. No mass or organomegaly. No rebound tenderness or guarding. RECTAL: Deferred. EXTREMITIES: Without significant clubbing, cyanosis, or edema. NEUROLOGICAL: No significant clinical changes. No focal neurological deficits, sensory or motor. IMPRESSION: 1. Acute pancreatitis. 2. The exacerbation of peptic ulcer disease. 3. Anemia with possible gastrointestinal blood loss, upper versus lower. 4. Known history of, but not limited to pneumonia, depression, chronic obstructive pulmonary disease, cholelithiasis. 5. Electrolytes imbalance. 6. Hypoalbuminemia with malnutrition. SUGGESTIONS: 1. Continue current management. 2. Blood transfusion to get hemoglobin around 10 gram percent. 3. Endoscopic evaluation of the gastrointestinal tract as needed to rule out gastrointestinal blood loss, upper versus lower. Further recommendation to follow. Yin Patel MD cc: Yin Patel MD
--- NOTE | 2017-09-10 22:58 | CP.PCM.PN ---
Subjective - Date & Time of Evaluation Date of Evaluation: 09/10/17 Time of Evaluation: 18:00 - Subjective Subjective: Patient seen and examined at bedside,Afebrile, is feeling better. no shortness of breat ,Status post thoracentesis. Objective - Vital Signs/Intake and Output Vital Signs (last 24 hours): Temp Pulse Resp BP Pulse Ox 97.7 F 94 H 18 112/74 97 09/10/17 20:23 09/10/17 20:23 09/10/17 20:23 09/10/17 20:23 09/10/17 15:33 Intake and Output: 09/10/17 09/11/17 18:59 06:59 Intake Total 1125 0 Balance 1125 0 - Medications Medications: Current Medications Albuterol/Ipratropium (Duoneb 3 Mg/0.5 Mg (3 Ml) Ud) 3 ml INH RQ6 [facility] Last Admin: 09/10/17 20:22 Dose: 3 ml Clonazepam (Klonopin) 1 mg PO BID [facility] Last Admin: 09/10/17 19:00 Dose: Not Given Enoxaparin Sodium (Lovenox) 30 mg SC DAILY [facility] Last Admin: 09/10/17 10:48 Dose: Not Given Famotidine (Pepcid) 20 mg IVP Q12 [facility] Last Admin: 09/10/17 22:56 Dose: 20 mg Ferric Sodium Gluconate Complex (Ferrlecit) 125 mg IVPB DAILY [facility] Stop: 09/15/17 10:01 Hydromorphone HCl (Dilaudid) 0.5 mg IVP Q6H PRN PRN Reason: Pain, moderate (4-7) Last Admin: 09/10/17 17:06 Dose: 0.5 mg Potassium Chloride/Dextrose/Sod Cl (Potassium Chl 20 Meq In D5-1/2ns) 1,000 mls @ 100 mls/hr IV .Q10H [facility] Last Admin: 09/10/17 14:15 Dose: Not Given Piperacillin Sod/Tazobactam Sod (Zosyn 3.375 Gm Iv Premix) 3.375 gm in 50 mls @ 100 mls/hr IVPB Q8 [facility] Last Admin: 09/10/17 22:56 Dose: 100 mls/hr Trazodone HCl (Desyrel) 50 mg PO HS [facility] Last Admin: 09/10/17 22:26 Dose: Not Given - Labs Labs: 09/10/17 07:56 09/10/17 07:56 PT 13.4 SECONDS (9.7-12.2) H 09/09/17 06:33 INR 1.2 09/09/17 06:33 APTT 36 SECONDS (21-34) H 09/09/17 06:33 - Constitutional Appears: No Acute Distress, Chronically Ill - Head Exam Head Exam: ATRAUMATIC, NORMAL INSPECTION, NORMOCEPHALIC - Eye Exam Eye Exam: EOMI, Normal appearance, PERRL Pupil Exam: NORMAL ACCOMODATION, PERRL - Respiratory Exam Respiratory Exam: Clear to Ausculation Bilateral, NORMAL BREATHING PATTERN - Cardiovascular Exam Cardiovascular Exam: REGULAR RHYTHM, +S1, +S2. absent: Murmur Assessment and Plan (1) Abdominal pain Status: Acute (2) Pleural effusion Status: Acute (3) Acute pancreatitis Status: Acute (4) Dehydration Status: Acute
[2017-09-11] MEDS: Potassium Ch 20mEq in D5-1/2NS 1,000 ML IV SCH ×4 (00:20→20:05)
[2017-09-11] MEDS: Albuterol-Ipratrop 3 mg / 0.5 (3 ml) UD INH SCH ×4 (01:17→20:46)
[2017-09-11] MEDS: Piperacill/Tazo 3.375gm in Dex 3.375 GM/50 ML BAG IVPB SCH ×3 (05:15→21:43)
[2017-09-11] MEDS: HYDROmorphone 0.5 mg/0.5 ml ISec IVP PRN ×4 (05:16→22:48)
[2017-09-11 08:35] LABS: BASO % 0.4 % (0.0-2.0); EOS # 0.4 K/uL (0.0-0.7); EOS % 5.2 % (0.0-4.0); HEMATOCRIT 34.5 % (34.0-47.0); LYMPH # 1.4 K/uL (1.0-4.3); LYMPH % 17.6 % (20.0-40.0); MEAN CORPUSCULAR HEMOGLOBIN 23.5 pg (27.0-31.0); MEAN CORPUSCULAR HGB CONC 31.9 g/dL (33.0-37.0); MEAN PLATELET VOLUME 7.9 fL (7.2-11.7); MONO # 0.8 K/uL (0.0-0.8); MONO % 10.1 % (0.0-10.0); NRBC % 0.1 % (0.0-2.0); WHITE BLOOD COUNT 7.8 K/uL (4.8-10.8)
[2017-09-11 08:45] LABS: CHLORIDE 99 mmol/L (98-107)
[2017-09-11 08:46] LABS: POTASSIUM 3.4 mmol/L (3.6-5.2); SODIUM 133 mmol/L (132-148)
[2017-09-11 08:49] LABS: ALKALINE PHOSPHATASE 59 U/L (38-126); ALT/SGPT 34 U/L (9-52); AMYLASE 212 U/L (30-110); AST/SGOT 22 U/L (14-36); BLOOD UREA NITROGEN 4 mg/dL (7-17); CARBON DIOXIDE 28 mmol/L (22-30); GFR AFRICAN-AMERICAN > 60; GLUCOSE,RANDOM 83 mg/dL (65-105); TOTAL PROTEIN 4.2 g/dL (6.3-8.3)
[2017-09-11 08:50] LABS: CALCIUM 7.1 mg/dl (8.6-10.4)
[2017-09-11 08:51] LABS: MEAN CELL VOLUME 73.6 fL (81.0-99.0)
[2017-09-11] MEDS: LIPASE/PROTEASE/AMYLASE 4,200 U ECC PO SCH ×3 (10:00→17:32)
[2017-09-11] MEDS: Ferric Sodium Gluconat Complex 62.5 mg/5 ml Vial IVPB SCH (10:32)
[2017-09-11] MEDS: Enoxaparin 30 mg Syringe SC SCH (10:33)
[2017-09-11] MEDS ORDERED: Propofol 10 mg/ml Inj (20 ML) ONE (11:16)
[2017-09-11] MEDS ORDERED: Ketamine 50 mg/ml Inj (10 ml) ONE (11:40)
[2017-09-11] MEDS ORDERED: Lidocaine Hydrochloride 10 ML INJ ONE (11:44)
[2017-09-11] MEDS ORDERED: Midazolam 2 MG/2 ML VIAL ONE (11:52)
[2017-09-11] MEDS ORDERED: Peg-Electrolyte Oral Soln 4L (Golytely) PO ONE (14:00)
[2017-09-11] MEDS ORDERED: Sodium Chloride 0.9% 250 ML IV ONE (14:47)
[2017-09-11 14:59] LABS: DRAW SITE LINE; VENOUS BLOOD GAS BASE EXCESS 6.8 mmol/L (0.0-2.0); VENOUS BLOOD GAS PCO2 57 mmHg (40-60); VENOUS BLOOD PH 7.38 (7.32-7.43)
--- NOTE | 2017-09-11 15:08 | CP.PCM.PN ---
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 Patient seen after EGD, latargic, arousable , pale and hypoxic - ( spo2 86% with nasal canula and bp 83/53) Objective - Vital Signs/Intake and Output Vital Signs (last 24 hours): Temp Pulse Resp BP Pulse Ox 97.8 F 88 21 93/68 L 99 09/11/17 13:15 09/11/17 13:15 09/11/17 13:15 09/11/17 13:15 09/11/17 13:15 Intake and Output: 09/11/17 09/11/17 06:59 18:59 Intake Total 325 1100 Balance 325 1100 - Medications Medications: Current Medications Albuterol/Ipratropium (Duoneb 3 Mg/0.5 Mg (3 Ml) Ud) 3 ml INH RQ6 [facility] Last Admin: 09/11/17 13:24 Dose: 3 ml Bisacodyl (Dulcolax) 10 mg PO ONCE [facility] Stop: 09/11/17 17:01 Clonazepam (Klonopin) 1 mg PO BID [facility] Last Admin: 09/11/17 10:34 Dose: Not Given Enoxaparin Sodium (Lovenox) 30 mg SC DAILY [facility] Last Admin: 09/11/17 10:33 Dose: Not Given Famotidine (Pepcid) 20 mg IVP Q12 [facility] Last Admin: 09/11/17 10:32 Dose: 20 mg Ferric Sodium Gluconate Complex (Ferrlecit) 125 mg IVPB DAILY [facility] Stop: 09/15/17 10:01 Last Admin: 09/11/17 10:32 Dose: 125 mg Hydromorphone HCl (Dilaudid) 0.5 mg IVP Q6H PRN PRN Reason: Pain, moderate (4-7) Last Admin: 09/11/17 10:31 Dose: 0.5 mg Potassium Chloride/Dextrose/Sod Cl (Potassium Chl 20 Meq In D5-1/2ns) 1,000 mls @ 100 mls/hr IV .Q10H [facility] Last Admin: 09/11/17 10:33 Dose: Not Given Piperacillin Sod/Tazobactam Sod (Zosyn 3.375 Gm Iv Premix) 3.375 gm in 50 mls @ 100 mls/hr IVPB Q8 [facility] Last Admin: 09/11/17 05:15 Dose: 100 mls/hr Sodium Chloride (Sodium Chloride 0.9%) 250 mls @ 250 mls/hr IV .Q1H [facility] Stop: 09/11/17 15:46 Metoclopramide HCl (Reglan) 5 mg IVP Q6 [facility] Trazodone HCl (Desyrel) 50 mg PO HS [facility] Last Admin: 09/10/17 22:26 Dose: Not Given - Labs Labs: 09/11/17 08:20 09/11/17 08:20 PT 13.4 SECONDS (9.7-12.2) H 09/09/17 06:33 INR 1.2 09/09/17 06:33 APTT 36 SECONDS (21-34) H 09/09/17 06:33 - Constitutional Appears: In Acute Distress, Cachectic (LATHARGIC ) - Respiratory Exam Respiratory Exam: Decreased Breath Sounds (r side ), Rhonchi - Cardiovascular Exam Cardiovascular Exam: REGULAR RHYTHM, +S1, +S2 - GI/Abdominal Exam GI & Abdominal Exam: Soft, Tenderness Assessment and Plan - Assessment and Plan (Free Text) Assessment: A/P 56 yr old female admitted for abdominal pain/ acute pancrititis s/p EGD today will place BIPAP AND VBG- STAT - will bolus NSS 250 and re chek bp Discussed with Dr. Olson and colonoscopy for tmw cancelled CXR - The above plan discussed with Dr. Baker and agrees
--- NOTE | 2017-09-11 15:18 | CP.PCM.PN ---
Subjective - Date & Time of Evaluation Date of Evaluation: 09/11/17 Time of Evaluation: 10:20 - Subjective Subjective: Patient seen and examined. Breathing better but on and off shortness of breath On BiPAP Got 2 units of packed RBC No active bleeding Objective - Vital Signs/Intake and Output Vital Signs (last 24 hours): Temp Pulse Resp BP Pulse Ox 97.8 F 88 21 93/68 L 99 09/11/17 13:15 09/11/17 13:15 09/11/17 13:15 09/11/17 13:15 09/11/17 13:15 Intake and Output: 09/11/17 09/11/17 06:59 18:59 Intake Total 325 1100 Balance 325 1100 - Medications Medications: Current Medications Albuterol/Ipratropium (Duoneb 3 Mg/0.5 Mg (3 Ml) Ud) 3 ml INH RQ6 [facility] Last Admin: 09/11/17 13:24 Dose: 3 ml Bisacodyl (Dulcolax) 10 mg PO ONCE [facility] Stop: 09/11/17 17:01 Clonazepam (Klonopin) 1 mg PO BID [facility] Last Admin: 09/11/17 10:34 Dose: Not Given Enoxaparin Sodium (Lovenox) 30 mg SC DAILY [facility] Last Admin: 09/11/17 10:33 Dose: Not Given Famotidine (Pepcid) 20 mg IVP Q12 [facility] Last Admin: 09/11/17 10:32 Dose: 20 mg Ferric Sodium Gluconate Complex (Ferrlecit) 125 mg IVPB DAILY [facility] Stop: 09/15/17 10:01 Last Admin: 09/11/17 10:32 Dose: 125 mg Hydromorphone HCl (Dilaudid) 0.5 mg IVP Q6H PRN PRN Reason: Pain, moderate (4-7) Last Admin: 09/11/17 10:31 Dose: 0.5 mg Potassium Chloride/Dextrose/Sod Cl (Potassium Chl 20 Meq In D5-1/2ns) 1,000 mls @ 100 mls/hr IV .Q10H [facility] Last Admin: 09/11/17 10:33 Dose: Not Given Piperacillin Sod/Tazobactam Sod (Zosyn 3.375 Gm Iv Premix) 3.375 gm in 50 mls @ 100 mls/hr IVPB Q8 [facility] Last Admin: 09/11/17 05:15 Dose: 100 mls/hr Sodium Chloride (Sodium Chloride 0.9%) 250 mls @ 250 mls/hr IV .Q1H [facility] Stop: 09/11/17 15:46 Metoclopramide HCl (Reglan) 5 mg IVP Q6 [facility] Trazodone HCl (Desyrel) 50 mg PO HS [facility] Last Admin: 09/10/17 22:26 Dose: Not Given - Labs Labs: 09/11/17 08:20 09/11/17 08:20 PT 13.4 SECONDS (9.7-12.2) H 09/09/17 06:33 INR 1.2 09/09/17 06:33 APTT 36 SECONDS (21-34) H 09/09/17 06:33 - Head Exam Head Exam: ATRAUMATIC, NORMOCEPHALIC - Eye Exam Eye Exam: Normal appearance - ENT Exam ENT Exam: Mucous Membranes Moist - Neck Exam Neck Exam: Normal Inspection - Respiratory Exam Respiratory Exam: Decreased Breath Sounds - Cardiovascular Exam Cardiovascular Exam: REGULAR RHYTHM - GI/Abdominal Exam GI & Abdominal Exam: Soft, Normal Bowel Sounds - Neurological Exam Neurological Exam: Alert, Oriented x3 Assessment and Plan (1) Pleural effusion Assessment & Plan: status post thoracentesis awaiting for fluid LDH and total protein followup chest x-ray Status: Acute (2) Hypercapnic respiratory failure Status: Acute
--- NOTE | 2017-09-11 15:24 | RAD ---
HISTORY: hypoxia COMPARISON: Portable chest 09/09/2017. FINDINGS: LUNGS: Underlying infiltrate is not excluded at the right mid to inferior lung zone. None is seen the left. PLEURA: Increased right pleural effusion now appears large. None is seen the left. CARDIOVASCULAR: Normal. OSSEOUS STRUCTURES: No significant abnormalities. VISUALIZED UPPER ABDOMEN: Normal. OTHER FINDINGS: None. IMPRESSION: Interval increase in right pleural effusion now appearing large. None is seen the left. Underlying atelectasis or infiltrate is not excluded the right lung mid to inferior zones.
--- NOTE | 2017-09-11 16:35 | PN ---
DATE: LOCATION: [facility], bed A. SUBJECTIVE: This is a 56-year-old female, seen and examined in rounds without significant clinical changes or reported active bleeding so far. The entire chart is reviewed including, but not limited to the most recent lab and radiology study results, current and previous medication list, current and previous medical events. Case discussed with the staff at length and the patient is status post thoracocentesis. LABORATORY DATA: The most recent lab results today showed increased hemoglobin to 11, hematocrit 24.5, possible blood transfusion but with low indices, with normal platelet count and reported abnormal ABGs before. Today's potassium at 3.4 with low albumin, BUN and low calcium at 7.1. Albumin of 2.0. Total protein of 4.2. Pleural effusion results and appeared to be . The patient also had abdomen and pelvic CAT scan at that time of the patient's reports seen. The patient improved post thoracocentesis. Cancer marker is still pending results, but the patient still have elevated amylase of 212 with lipase of 580 indicative of acute pancreatitis. PHYSICAL EXAMINATION GENERAL: A 56-year-old female appeared to be more awake and alert with less complaint of abdominal pain. VITAL SIGNS: Afebrile with pulse of 82, respiratory rate 20-22, and blood pressure of 130/80. HEENT: Showed pale, dry oral mucoid membrane. Nonicteric sclerae. LUNGS: Scattered crepitation, decreased air entry at bases. HEART: Positive S1 and S2. ABDOMEN: Soft bowel sounds are present with generalized tenderness. No mass or organomegaly. No rebound tenderness or guarding. EXTREMITIES: Mild lower extremities edematous changes. No clubbing or cyanosis. NEUROLOGIC: No new reported neurological deficits sensory or motor. IMPRESSION: 1. Acute pancreatitis of unclear etiology. 2. Anemia to rule out gastrointestinal blood loss, upper versus lower versus occult gastrointestinal malignancy. 3. Malnutrition with hypoalbuminemia and hypoproteinemia. 4. Pneumonia, with large pleural effusion of unclear etiology. The patient is post thoracocentesis. 5. Known history of depression, chronic obstructive pulmonary disease, anxiety, gallbladder disorder, and peptic ulcer disease. SUGGESTIONS: 1. Agree with your plan. 2. Endoscopic evaluation of the GI tract when the patient is more stable clinically. 3. Cancer markers. 4. Further recommendations to follow and the patient should be n.p.o. except medication. We will repeat serum lipase and amylase level. Yin Patel MD cc: Yin Patel MD [facility] # [id number]
[2017-09-11] MEDS ORDERED: Bisacodyl 5mg EC Tab PO ONE (17:00)
--- NOTE | 2017-09-11 23:56 | CP.PCM.PN ---
Subjective - Date & Time of Evaluation Date of Evaluation: 09/11/17 Time of Evaluation: 20:00 - Subjective Subjective: Patient seen and examined.is feeling better, s/p thoracocentesis, was evaluated by pulmonary Breathing better but c/o on and off shortness of breath On BiPAP Got 2 units of packed RBC No active bleeding Objective - Vital Signs/Intake and Output Vital Signs (last 24 hours): Temp Pulse Resp BP Pulse Ox 96.4 F L 75 20 111/74 100 09/11/17 15:00 09/11/17 15:00 09/11/17 15:00 09/11/17 15:00 09/11/17 15:00 Intake and Output: 09/11/17 09/12/17 18:59 06:59 Intake Total 1100 1300 Balance 1100 1300 - Medications Medications: Current Medications Albuterol/Ipratropium (Duoneb 3 Mg/0.5 Mg (3 Ml) Ud) 3 ml INH RQ6 [facility] Last Admin: 09/11/17 20:46 Dose: 3 ml Clonazepam (Klonopin) 1 mg PO BID [facility] Last Admin: 09/11/17 17:32 Dose: 1 mg Enoxaparin Sodium (Lovenox) 30 mg SC DAILY [facility] Last Admin: 09/11/17 10:33 Dose: Not Given Famotidine (Pepcid) 20 mg IVP Q12 [facility] Last Admin: 09/11/17 21:42 Dose: 20 mg Ferric Sodium Gluconate Complex (Ferrlecit) 125 mg IVPB DAILY [facility] Stop: 09/15/17 10:01 Last Admin: 09/11/17 10:32 Dose: 125 mg Hydromorphone HCl (Dilaudid) 0.5 mg IVP Q6H PRN PRN Reason: Pain, moderate (4-7) Last Admin: 09/11/17 22:48 Dose: 0.5 mg Potassium Chloride/Dextrose/Sod Cl (Potassium Chl 20 Meq In D5-1/2ns) 1,000 mls @ 100 mls/hr IV .Q10H [facility] Last Admin: 09/11/17 20:05 Dose: Not Given Piperacillin Sod/Tazobactam Sod (Zosyn 3.375 Gm Iv Premix) 3.375 gm in 50 mls @ 100 mls/hr IVPB Q8 [facility] Last Admin: 09/11/17 21:43 Dose: 100 mls/hr Metoclopramide HCl (Reglan) 5 mg IVP Q6 [facility] Last Admin: 09/11/17 17:40 Dose: Not Given Trazodone HCl (Desyrel) 50 mg PO HS [facility] Last Admin: 09/11/17 21:43 Dose: 50 mg - Labs Labs: 09/11/17 08:20 09/11/17 08:20 PT 13.4 SECONDS (9.7-12.2) H 09/09/17 06:33 INR 1.2 09/09/17 06:33 APTT 36 SECONDS (21-34) H 09/09/17 06:33 - Constitutional Appears: No Acute Distress - Head Exam Head Exam: ATRAUMATIC, NORMAL INSPECTION, NORMOCEPHALIC - Eye Exam Eye Exam: EOMI, Normal appearance, PERRL Pupil Exam: NORMAL ACCOMODATION, PERRL - Respiratory Exam Respiratory Exam: Decreased Breath Sounds, Rales, Rhonchi, NORMAL BREATHING PATTERN - Cardiovascular Exam Cardiovascular Exam: REGULAR RHYTHM, +S1, +S2. absent: Murmur - GI/Abdominal Exam GI & Abdominal Exam: Soft, Normal Bowel Sounds. absent: Tenderness Assessment and Plan (1) Abdominal pain Status: Acute (2) Pleural effusion Status: Acute (3) Acute pancreatitis Status: Acute (4) Dehydration Status: Acute
[2017-09-12] MEDS: Albuterol-Ipratrop 3 mg / 0.5 (3 ml) UD INH SCH ×4 (01:35→20:53)
[2017-09-12] MEDS: Potassium Ch 20mEq in D5-1/2NS 1,000 ML IV SCH ×4 (03:00→20:50)
[2017-09-12] MEDS: HYDROmorphone 0.5 mg/0.5 ml ISec IVP PRN ×4 (04:41→20:21)
[2017-09-12] MEDS: Piperacill/Tazo 3.375gm in Dex 3.375 GM/50 ML BAG IVPB SCH ×3 (05:01→21:08)
[2017-09-12 08:02] LABS: CHLORIDE 100 mmol/L (98-107); SODIUM 132 mmol/L (132-148)
[2017-09-12 08:03] LABS: POTASSIUM 3.4 mmol/L (3.6-5.2)
[2017-09-12 08:05] LABS: GFR AFRICAN-AMERICAN > 60
[2017-09-12 08:06] LABS: BLOOD UREA NITROGEN 4 mg/dL (7-17); CALCIUM 7.2 mg/dl (8.6-10.4); CARBON DIOXIDE 28 mmol/L (22-30); GLUCOSE,RANDOM 87 mg/dL (65-105); PHOSPHOROUS 2.2 mg/dL (2.5-4.5)
[2017-09-12 08:07] LABS: MAGNESIUM 1.5 mg/dL (1.6-2.3)
[2017-09-12 08:08] LABS: BASO % 0.4 % (0.0-2.0); EOS # 0.4 K/uL (0.0-0.7); HEMATOCRIT 34.1 % (34.0-47.0); LYMPH # 1.3 K/uL (1.0-4.3); LYMPH % 15.9 % (20.0-40.0); MEAN CELL VOLUME 73.7 fL (81.0-99.0); MEAN CORPUSCULAR HEMOGLOBIN 23.1 pg (27.0-31.0); MEAN CORPUSCULAR HGB CONC 31.3 g/dL (33.0-37.0); MEAN PLATELET VOLUME 7.7 fL (7.2-11.7); MONO % 11.5 % (0.0-10.0); RED CELL DISTRIBUTION WIDTH 23.4 % (11.5-14.5); WHITE BLOOD COUNT 8.4 K/uL (4.8-10.8)
[2017-09-12] MEDS ORDERED: Potassium Phosphate 15 MMOLE in Sodium Chloride 0.9% 250 ML IV ONE (10:00)
[2017-09-12] MEDS: LIPASE/PROTEASE/AMYLASE 4,200 U ECC PO SCH ×3 (10:06→17:23)
[2017-09-12] MEDS: Ferric Sodium Gluconat Complex 62.5 mg/5 ml Vial IVPB SCH (10:09)
[2017-09-12] MEDS: Enoxaparin 30 mg Syringe SC SCH (10:09)
[2017-09-12] MEDS: Magnesium Sulfate 1 gm in D5W 1 GM/100 ML BAG IVPB SCH ×2 (12:14→12:43)
--- NOTE | 2017-09-12 12:51 | PN ---
LOCATION: 569, bed A. SUBJECTIVE: This is a 56-year-old female, seen and examined in rounds without significant clinical changes. The patient was scheduled for colonoscopy today, but due to an episode of hypoxia with more generalized weakness and malaise yesterday, postoperative endoscopy, colonoscopy is canceled and to be rescheduled when the patient is more stable clinically. The entire chart is reviewed including, but not limited to the most recent lab and radiology study results, current and previous medication list, current and previous medical events. Case discussed with the staff at length and today's hemoglobin is 10.7 with low indices, but with normal platelet count, potassium is still low at 3.4 and low BUN and creatinine as well as low calcium, phosphorus, and magnesium, but lipase went down to 538. Pleural effusion fluid report is seen. Most recent chest x-ray done yesterday, with upper endoscopy showed increase of right pleural effusion, none seen in the left, was possible infiltrate and atelectasis. PHYSICAL EXAMINATION GENERAL: A 56-year-old female, afebrile, appears to be awake, alert, and oriented. VITAL SIGNS: Pulse of 94, respiratory rate 22, and blood pressure of 114/72. HEENT: Showed pale, dry oral mucous membrane. Nonicteric sclerae. LUNGS: Few scattered crepitation, decreased air entry at bases. HEART: Positive S1 and S2. ABDOMEN: Soft. Bowel sounds are present with mild generalized tenderness. No mass or organomegaly. No rebound tenderness or guarding. EXTREMITIES: Without significant clubbing, cyanosis or edema. NEUROLOGIC: No reported new neurological deficits, sensory or motor. IMPRESSION: 1. Peptic ulcer disease by recent upper endoscopy. 2. Acute pancreatitis, slightly improving. 3. Anemia to rule out lower gastrointestinal blood loss. 4. Malnutrition with hypoalbuminemia. 5. Pneumonia with large right-sided pleural effusion. 6. Known history of, but not limited to chronic obstructive pulmonary disease, depression, gallbladder disorder, and severe anxiety syndrome. SUGGESTIONS: 1. Continue current management. 2. Patient may need thoracocentesis. 3. Reschedule her colonoscopy when the patient is more stable clinically. 4. Further recommendation to follow. Yin Patel MD
--- NOTE | 2017-09-12 13:19 | CP.PCM.PN ---
Subjective - Date & Time of Evaluation Date of Evaluation: 09/12/17 Time of Evaluation: 11:35 - Subjective Subjective: The patient seen and examined. Is using BiPAP at night Repeat chest x-ray showed repeated pleural effusion Consider pleurodesis Awaiting cytology report Objective - Vital Signs/Intake and Output Vital Signs (last 24 hours): Temp Pulse Resp BP Pulse Ox 98.1 F 93 H 20 109/70 99 09/12/17 08:34 09/12/17 08:34 09/12/17 08:34 09/12/17 08:34 09/12/17 08:34 Intake and Output: 09/12/17 09/12/17 06:59 18:59 Intake Total 2220 Balance 2220 - Medications Medications: Current Medications Albuterol/Ipratropium (Duoneb 3 Mg/0.5 Mg (3 Ml) Ud) 3 ml INH RQ6 [facility] Last Admin: 09/12/17 07:35 Dose: 3 ml Clonazepam (Klonopin) 1 mg PO BID [facility] Last Admin: 09/12/17 10:06 Dose: 1 mg Enoxaparin Sodium (Lovenox) 30 mg SC DAILY [facility] Last Admin: 09/12/17 10:09 Dose: Not Given Famotidine (Pepcid) 20 mg PO BID [facility] Last Admin: 09/12/17 10:06 Dose: 20 mg Ferric Sodium Gluconate Complex (Ferrlecit) 125 mg IVPB DAILY [facility] Stop: 09/15/17 10:01 Last Admin: 09/12/17 10:09 Dose: 125 mg Hydromorphone HCl (Dilaudid) 0.5 mg IVP Q6H PRN PRN Reason: Pain, moderate (4-7) Last Admin: 09/12/17 10:05 Dose: 0.5 mg Potassium Chloride/Dextrose/Sod Cl (Potassium Chl 20 Meq In D5-1/2ns) 1,000 mls @ 100 mls/hr IV .Q10H [facility] Last Admin: 09/12/17 06:25 Dose: Not Given Piperacillin Sod/Tazobactam Sod (Zosyn 3.375 Gm Iv Premix) 3.375 gm in 50 mls @ 100 mls/hr IVPB Q8 [facility] Last Admin: 09/12/17 13:14 Dose: 100 mls/hr Potassium Phosphate 15 mmole/ (Sodium Chloride) 255 mls @ 63 mls/hr IV ONCE ONE Stop: 09/12/17 14:02 Metoclopramide HCl (Reglan) 5 mg IVP Q6 [facility] Last Admin: 09/12/17 12:34 Dose: Not Given Trazodone HCl (Desyrel) 50 mg PO HS [facility] Last Admin: 09/11/17 21:43 Dose: 50 mg - Labs Labs: 09/12/17 07:41 09/12/17 07:41 PT 13.4 SECONDS (9.7-12.2) H 09/09/17 06:33 INR 1.2 09/09/17 06:33 APTT 36 SECONDS (21-34) H 09/09/17 06:33 - Head Exam Head Exam: ATRAUMATIC, NORMOCEPHALIC - ENT Exam ENT Exam: Mucous Membranes Moist - Neck Exam Neck Exam: Normal Inspection - Respiratory Exam Respiratory Exam: Decreased Breath Sounds - Cardiovascular Exam Cardiovascular Exam: REGULAR RHYTHM - GI/Abdominal Exam GI & Abdominal Exam: Soft, Normal Bowel Sounds Assessment and Plan (1) Pleural effusion Assessment & Plan: Consider pleurodesis Awaiting cytology report Continue BiPAP Status: Acute (2) Hypercapnic respiratory failure Status: Acute
--- NOTE | 2017-09-12 16:25 | CP.PCM.CON ---
History of Present Illness - History of Present Illness History of Present Illness: Cardiothoracic Surgery Consult Note for Dr. Omer Reason for Consult: Right sided pleural effusion 56 F with PMH of pancreatitis and anxiety was admitted on 09/09 for abdominal pain secondary to pancreatitis and shortness of breath. Patient was also found to have a larghe right sided pleural effusion. [employer] was called for O2 desaturation on 09/09. Patient had thoracentisis on 09/11 where 1200 cc of fluid were removed. Patient states that she has had shortness of breath for a few weeks. She states that she can walk about 20 feet before getting tired and having to stop. She states that activity/exertion exacerbates her SOB while rest alleviates it. Patient unaware if she has ever an ECHO. She states she sleeps with one pillow at night. Admits to abdominal pain, YANG and pleuritic pain. Denies fever/chills, night sweats, palpitations, nausea/vomiting, diarrhea. PMD: Dr. Zamora PMH: Pancreatitis, Anxiety Meds: As per Emr Allergy: NKDA PSH: cholecystectomy, thoracentesis Hosp: Cholecystectomy FH: unknown Social: former smoker, former drinker, denies illicit drug use, lives with son Review of Systems - Review of Systems All systems: reviewed and no additional remarkable complaints except (abdominal pain, SOB, pleuritic pain, Dyspnea, dyspnea on exertion) Past Patient History - Infectious Disease Hx of Infectious Diseases: None - Past Medical History & Family History Past Medical History?: Yes - Past Social History Smoking Status: Former Smoker - CARDIAC Hx Cardiac Disorders: No - PULMONARY Hx Chronic Obstructive Pulmonary Disease (COPD): Yes - NEUROLOGICAL Hx Neurological Disorder: No - HEENT Hx HEENT Problems: No - RENAL Hx Chronic Kidney Disease: No - ENDOCRINE/METABOLIC Hx Endocrine Disorders: No - HEMATOLOGICAL/ONCOLOGICAL Hx Blood Disorders: No Hx Blood Transfusions: Yes Hx Blood Transfusion Reaction: No Other/Comment: Hepatitis - INTEGUMENTARY Hx Dermatological Problems: No - MUSCULOSKELETAL/RHEUMATOLOGICAL Hx Musculoskeletal Disorders: No Hx Falls: No - GASTROINTESTINAL Hx Gall Bladder Disease: Yes (Cholelithiasis) Hx Pancreatitis: Yes - GENITOURINARY/GYNECOLOGICAL Hx Genitourinary Disorders: No Other/Comment: 1990 oophorectomy - PSYCHIATRIC Hx Anxiety: No Hx Depression: Yes Hx Substance Use: No - SURGICAL HISTORY Hx Surgeries: Yes Other/Comment: chesttube insertion-left 113/14 oopherectomy 1989 - ANESTHESIA Hx Anesthesia: Yes Hx Anesthesia Reactions: No Hx Malignant Hyperthermia: No Meds Allergies/Adverse Reactions: Allergies Allergy/AdvReac Type Severity Reaction Status Date / Time No Known Allergies Allergy Verified 09/09/17 06:11 - Medications Medications: Current Medications Albuterol/Ipratropium (Duoneb 3 Mg/0.5 Mg (3 Ml) Ud) 3 ml INH RQ6 [facility] Last Admin: 09/12/17 13:32 Dose: 3 ml Clonazepam (Klonopin) 1 mg PO BID [facility] Last Admin: 09/12/17 10:06 Dose: 1 mg Enoxaparin Sodium (Lovenox) 30 mg SC DAILY [facility] Last Admin: 09/12/17 10:09 Dose: Not Given Famotidine (Pepcid) 20 mg PO BID [facility] Last Admin: 09/12/17 10:06 Dose: 20 mg Ferric Sodium Gluconate Complex (Ferrlecit) 125 mg IVPB DAILY [facility] Stop: 09/15/17 10:01 Last Admin: 09/12/17 10:09 Dose: 125 mg Hydromorphone HCl (Dilaudid) 0.5 mg IVP Q6H PRN PRN Reason: Pain, moderate (4-7) Last Admin: 09/12/17 16:21 Dose: 0.5 mg Potassium Chloride/Dextrose/Sod Cl (Potassium Chl 20 Meq In D5-1/2ns) 1,000 mls @ 100 mls/hr IV .Q10H [facility] Last Admin: 09/12/17 16:10 Dose: Not Given Piperacillin Sod/Tazobactam Sod (Zosyn 3.375 Gm Iv Premix) 3.375 gm in 50 mls @ 100 mls/hr IVPB Q8 [facility] Last Admin: 09/12/17 13:14 Dose: 100 mls/hr Metoclopramide HCl (Reglan) 5 mg IVP Q6 [facility] Last Admin: 09/12/17 12:34 Dose: Not Given Trazodone HCl (Desyrel) 50 mg PO HS [facility] Last Admin: 09/11/17 21:43 Dose: 50 mg Physical Exam - Constitutional Appears: No Acute Distress, Older Than Stated Age - Head Exam Head Exam: ATRAUMATIC, NORMOCEPHALIC - Eye Exam Eye Exam: Normal appearance - ENT Exam ENT Exam: Mucous Membranes Moist - Respiratory Exam Respiratory Exam: Decreased Breath Sounds (on right), NORMAL BREATHING PATTERN. absent: Accessory Muscle Use, Respiratory Distress Additional comments: on nasal cannula - Cardiovascular Exam Cardiovascular Exam: REGULAR RHYTHM - GI/Abdominal Exam GI & Abdominal Exam: Soft, Tenderness (epigastric pain). absent: Distended, Firm, Guarding, Rebound, Rigid - Extremities Exam Extremities exam: Positive for: normal capillary refill, pedal pulses present. Negative for: calf tenderness - Back Exam Back exam: absent: CVA tenderness (L), CVA tenderness (R) - Neurological Exam Neurological exam: Alert, CN II-XII Intact, Oriented x3 - Psychiatric Exam Psychiatric exam: Normal Affect, Normal Mood - Skin Skin Exam: Dry, Intact, Normal Color, Warm Results - Vital Signs Recent Vital Signs: Last Vital Signs Temp 98.1 F 09/12/17 08:34 Pulse 93 H 09/12/17 08:34 Resp 20 09/12/17 08:34 BP 109/70 09/12/17 08:34 Pulse Ox 99 09/12/17 08:34 - Labs Result Diagrams: 09/12/17 07:41 09/12/17 07:41 Labs: Laboratory Results - last 24 hr 09/12/17 09/12/17 07:41 07:41 WBC 8.4 RBC 4.63 Hgb 10.7 L Hct 34.1 MCV 73.7 L MCH 23.1 L MCHC 31.3 L RDW 23.4 H Plt Count 376 MPV 7.7 Neut % (Auto) 67.2 Lymph % (Auto) 15.9 L Arroyo % (Auto) 11.5 H Eos % (Auto) 5.0 H Baso % (Auto) 0.4 Neut # 5.6 Lymph # 1.3 Arroyo # 1.0 H Eos # 0.4 Baso # 0.0 Sodium 132 Potassium 3.4 L Chloride 100 Carbon Dioxide 28 Anion Gap 8 L BUN 4 L Creatinine 0.5 L Est GFR ( Amer) > 60 Est GFR (Non-Af Amer) > 60 Random Glucose 87 Calcium 7.2 L Phosphorus 2.2 L Magnesium 1.5 L Lipase 538 H Assessment & Plan - Assessment and Plan (Free Text) Plan: 56 F with R sided pleural effusion -CT Chest with IV contrast -Continue Nasal cannula -Medical management as per primary -Possible surgical intervention early next week -Discussed with Dr. Kan Dawkins PGY1
--- NOTE | 2017-09-12 22:02 | CP.PCM.PN ---
Subjective - Date & Time of Evaluation Date of Evaluation: 09/12/17 Time of Evaluation: 19:00 - Subjective Subjective: Pt is seen and examined,m pleural effusion is getting bigger. CT surgery was consulted and pt might need chest tube. Pt is using BiPAP at night Consider pleurodesis as pe pulmonary,Awaiting cytology report Objective - Vital Signs/Intake and Output Vital Signs (last 24 hours): Temp Pulse Resp BP Pulse Ox 98.2 F 117 H 20 115/80 94 L 09/12/17 15:00 09/12/17 15:00 09/12/17 15:00 09/12/17 15:00 09/12/17 15:00 - Medications Medications: Current Medications Albuterol/Ipratropium (Duoneb 3 Mg/0.5 Mg (3 Ml) Ud) 3 ml INH RQ6 [facility] Last Admin: 09/12/17 20:53 Dose: 3 ml Clonazepam (Klonopin) 1 mg PO BID [facility] Last Admin: 09/12/17 17:23 Dose: 1 mg Enoxaparin Sodium (Lovenox) 30 mg SC DAILY [facility] Last Admin: 09/12/17 10:09 Dose: Not Given Famotidine (Pepcid) 20 mg PO BID [facility] Last Admin: 09/12/17 17:23 Dose: 20 mg Ferric Sodium Gluconate Complex (Ferrlecit) 125 mg IVPB DAILY [facility] Stop: 09/15/17 10:01 Last Admin: 09/12/17 10:09 Dose: 125 mg Hydromorphone HCl (Dilaudid) 0.5 mg IVP Q4 PRN PRN Reason: Pain, moderate (4-7) Last Admin: 09/12/17 20:21 Dose: 0.5 mg Potassium Chloride/Dextrose/Sod Cl (Potassium Chl 20 Meq In D5-1/2ns) 1,000 mls @ 100 mls/hr IV .Q10H [facility] Last Admin: 09/12/17 20:50 Dose: 100 mls/hr Piperacillin Sod/Tazobactam Sod (Zosyn 3.375 Gm Iv Premix) 3.375 gm in 50 mls @ 100 mls/hr IVPB Q8 [facility] Last Admin: 09/12/17 21:08 Dose: 100 mls/hr Metoclopramide HCl (Reglan) 5 mg IVP Q6 [facility] Last Admin: 09/12/17 18:09 Dose: Not Given Trazodone HCl (Desyrel) 50 mg PO HS [facility] Last Admin: 09/12/17 21:08 Dose: 50 mg - Labs Labs: 09/12/17 07:41 09/12/17 07:41 PT 13.4 SECONDS (9.7-12.2) H 09/09/17 06:33 INR 1.2 09/09/17 06:33 APTT 36 SECONDS (21-34) H 09/09/17 06:33 - Constitutional Appears: No Acute Distress - Head Exam Head Exam: ATRAUMATIC, NORMAL INSPECTION, NORMOCEPHALIC - Eye Exam Eye Exam: EOMI, Normal appearance, PERRL Pupil Exam: NORMAL ACCOMODATION, PERRL - Respiratory Exam Respiratory Exam: Decreased Breath Sounds, Rales, Rhonchi, NORMAL BREATHING PATTERN - Cardiovascular Exam Cardiovascular Exam: REGULAR RHYTHM, +S1, +S2. absent: Murmur - GI/Abdominal Exam GI & Abdominal Exam: Soft, Normal Bowel Sounds. absent: Tenderness - Rectal Exam Rectal Exam: Deferred Assessment and Plan (1) Abdominal pain Status: Acute (2) Pleural effusion Status: Acute (3) Acute pancreatitis Status: Acute (4) Dehydration Status: Acute
[2017-09-12 22:48] LABS: LDH PLEURAL FLUID 451 U/L
[2017-09-13] MEDS: HYDROmorphone 0.5 mg/0.5 ml ISec IVP PRN ×6 (00:15→20:38)
[2017-09-13] MEDS: Albuterol-Ipratrop 3 mg / 0.5 (3 ml) UD INH SCH ×4 (01:34→19:41)
[2017-09-13] MEDS: Piperacill/Tazo 3.375gm in Dex 3.375 GM/50 ML BAG IVPB SCH ×3 (05:31→22:03)
[2017-09-13] MEDS: Potassium Ch 20mEq in D5-1/2NS 1,000 ML IV SCH ×3 (06:12→22:03)
--- NOTE | 2017-09-13 07:49 | CP.PCM.PN ---
Subjective - Date & Time of Evaluation Date of Evaluation: 09/13/17 Time of Evaluation: 06:40 - Subjective Subjective: Cardiothoracic Surgery Note for Dr. Omer Patient seen and examined at bedside. No acute event overnight. Patient still complaining of epigastric pain and shortness of breath. She is tolerating diet. Denies fever/chills, chest pain, nausea/vomiting. Objective - Vital Signs/Intake and Output Vital Signs (last 24 hours): Temp Pulse Resp BP Pulse Ox 97.4 F L 114 H 20 128/85 97 09/13/17 00:00 09/13/17 00:00 09/13/17 00:00 09/13/17 00:00 09/13/17 00:00 Intake and Output: 09/13/17 09/13/17 06:59 18:59 Intake Total 1200 800 Balance 1200 800 - Medications Medications: Current Medications Albuterol/Ipratropium (Duoneb 3 Mg/0.5 Mg (3 Ml) Ud) 3 ml INH RQ6 [facility] Last Admin: 09/13/17 07:16 Dose: 3 ml Clonazepam (Klonopin) 1 mg PO BID [facility] Last Admin: 09/12/17 17:23 Dose: 1 mg Enoxaparin Sodium (Lovenox) 30 mg SC DAILY [facility] Last Admin: 09/12/17 10:09 Dose: Not Given Famotidine (Pepcid) 20 mg PO BID [facility] Last Admin: 09/12/17 17:23 Dose: 20 mg Ferric Sodium Gluconate Complex (Ferrlecit) 125 mg IVPB DAILY [facility] Stop: 09/15/17 10:01 Last Admin: 09/12/17 10:09 Dose: 125 mg Hydromorphone HCl (Dilaudid) 0.5 mg IVP Q4 PRN PRN Reason: Pain, moderate (4-7) Last Admin: 09/13/17 04:19 Dose: 0.5 mg Potassium Chloride/Dextrose/Sod Cl (Potassium Chl 20 Meq In D5-1/2ns) 1,000 mls @ 100 mls/hr IV .Q10H [facility] Last Admin: 09/13/17 06:12 Dose: Not Given Piperacillin Sod/Tazobactam Sod (Zosyn 3.375 Gm Iv Premix) 3.375 gm in 50 mls @ 100 mls/hr IVPB Q8 [facility] Last Admin: 09/13/17 05:31 Dose: 100 mls/hr Metoclopramide HCl (Reglan) 5 mg IVP Q6 [facility] Last Admin: 09/13/17 06:12 Dose: Not Given Trazodone HCl (Desyrel) 50 mg PO HS [facility] Last Admin: 09/12/17 21:08 Dose: 50 mg - Labs Labs: 09/12/17 07:41 09/12/17 07:41 PT 13.4 SECONDS (9.7-12.2) H 09/09/17 06:33 INR 1.2 09/09/17 06:33 APTT 36 SECONDS (21-34) H 09/09/17 06:33 - Constitutional Appears: No Acute Distress - Head Exam Head Exam: ATRAUMATIC, NORMOCEPHALIC - Eye Exam Eye Exam: Normal appearance - ENT Exam ENT Exam: Mucous Membranes Moist - Respiratory Exam Respiratory Exam: Decreased Breath Sounds (right side) - Cardiovascular Exam Cardiovascular Exam: REGULAR RHYTHM - GI/Abdominal Exam GI & Abdominal Exam: Soft, Tenderness (epigastric). absent: Distended, Firm, Guarding, Rigid, Rebound - Extremities Exam Extremities Exam: Normal Capillary Refill - Back Exam Back Exam: absent: CVA tenderness (L), CVA tenderness (R) - Neurological Exam Neurological Exam: Alert, Awake, Oriented x3 - Psychiatric Exam Psychiatric exam: Normal Affect, Normal Mood - Skin Skin Exam: Dry, Warm Assessment and Plan - Assessment and Plan (Free Text) Plan: 56 F with pancreatitis and R sided pleural effusion -f/u CT Chest with IV contrast -Medical management as per primary -Possible surgical intervention Friday or Friday if needed -Discussed with Dr. Kan Dawkins PGY1
[2017-09-13 07:52] LABS: BASO % 0.4 % (0.0-2.0); EOS # 0.3 K/uL (0.0-0.7); EOS % 3.1 % (0.0-4.0); HEMATOCRIT 34.9 % (34.0-47.0); LYMPH # 1.1 K/uL (1.0-4.3); LYMPH % 11.4 % (20.0-40.0); MEAN CELL VOLUME 73.7 fL (81.0-99.0); MEAN CORPUSCULAR HEMOGLOBIN 23.3 pg (27.0-31.0); MEAN CORPUSCULAR HGB CONC 31.6 g/dL (33.0-37.0); MEAN PLATELET VOLUME 7.7 fL (7.2-11.7); MONO # 0.9 K/uL (0.0-0.8); MONO % 9.5 % (0.0-10.0); RED CELL DISTRIBUTION WIDTH 23.8 % (11.5-14.5); WHITE BLOOD COUNT 9.7 K/uL (4.8-10.8)
[2017-09-13 08:33] LABS: CHLORIDE 98 mmol/L (98-107); SODIUM 134 mmol/L (132-148)
[2017-09-13 08:34] LABS: POTASSIUM 3.5 mmol/L (3.6-5.2)
[2017-09-13 08:36] LABS: BLOOD UREA NITROGEN 7 mg/dL (7-17); CARBON DIOXIDE 30 mmol/L (22-30); GFR AFRICAN-AMERICAN > 60
[2017-09-13 08:37] LABS: CALCIUM 7.5 mg/dl (8.6-10.4); GLUCOSE,RANDOM 92 mg/dL (65-105); MAGNESIUM 1.7 mg/dL (1.6-2.3); PHOSPHOROUS 2.9 mg/dL (2.5-4.5)
--- NOTE | 2017-09-13 09:16 | RAD ---
HISTORY: f/u pleural effusion COMPARISON: 09/11/2017. FINDINGS: LUNGS: The lungs are hyperinflated and there are chronic changes in the left lung. There is persistent airspace disease in the right mid and lower lung. PLEURA: There is a persistent large right pleural effusion. No large left pleural effusion. CARDIOVASCULAR: Normal. OSSEOUS STRUCTURES: No significant abnormalities. VISUALIZED UPPER ABDOMEN: Normal. OTHER FINDINGS: Surgical clips in the right upper quadrant are related to prior cholecystectomy.. IMPRESSION: No change in large right pleural effusion. Airspace disease in the right middle lower lobe may represent compressive atelectasis, however mass or pneumonia cannot be excluded. Follow-up is advised. Upper
[2017-09-13] MEDS: Ferric Sodium Gluconat Complex 62.5 mg/5 ml Vial IVPB SCH (09:23)
[2017-09-13] MEDS: Enoxaparin 30 mg Syringe SC SCH (09:29)
[2017-09-13] MEDS: LIPASE/PROTEASE/AMYLASE 4,200 U ECC PO SCH ×3 (09:30→18:17)
--- NOTE | 2017-09-13 14:26 | PN ---
LOCATION: 9, bed A. SUBJECTIVE: This is a 56-year-old female, seen in rounds, appeared to be awake, alert, oriented, post abdominal paracentesis with much less complaint of any shortness of breath. The entire chart is reviewed including, but not limited to the most recent lab and radiology study results, current and previous medication list, current and previous medical events. Case discussed with the staff at length in the floor and today's lab showed hemoglobin is 11.0, hematocrit 34.9 with low indices, but normal platelet count, with low potassium at 3.5; low creatinine of 0.8 with low calcium at 7.5. The patient reported to have low albumin and total protein before, with elevated serum lipase level. Stool for occult blood reported to be positive. Most recent chest x-ray done today showed large right pleural effusion, with possible pneumonia on the right side, and the patient may need recurrent thoracocentesis. PHYSICAL EXAMINATION: GENERAL: A 56-year-old female. VITAL SIGNS: Afebrile with pulse of 104, respiratory rate 20 to 22 with blood pressure of 126/74. HEENT: Showed pale, dry oral mucous membrane. Nonicteric sclerae. LUNGS: Few scattered crepitation, decreased air entry at bases. HEART: Positive S1 and S2. ABDOMEN: Soft. Bowel sounds are present with slight generalized tenderness. No mass or organomegaly. No rebound tenderness or guarding. EXTREMITIES: With evidence of mild muscle wasting syndrome. No clubbing or cyanosis, but mild edematous changes. NEUROLOGIC: No reported new neurological deficits, sensory or motor. IMPRESSION: 1. Reexacerbation of peptic ulcer disease. 2. Acute pancreatitis, slightly improving gradually. 3. Severe anemia to rule out lower gastrointestinal tract occult malignancy. 4. Large right-sided pleural effusion with possible pneumonia; however, the possibility of right-sided lung mass lesion, with possible malignant pleural effusion should be ruled in or out. 5. Malnutrition with hypoalbuminemia. 6. Known history of chronic obstructive pulmonary disease, depression, and severe anxiety syndrome. SUGGESTIONS: 1. Continue current management. 2. The patient may need repeat thoracocentesis. 3. We will schedule the patient for colonoscopy when she is more stable clinically. 4. Further recommendation to follow. Yin Patel MD cc: Yin Patel MD [facility] # [id number]
--- NOTE | 2017-09-13 18:12 | CP.PCM.PN ---
Subjective - Date & Time of Evaluation Date of Evaluation: 09/13/17 Time of Evaluation: 16:25 - Subjective Subjective: the patient seen and examined Complaining of dyspnea on minimal exertion reaccumulation of pleural fluid seen by thoracic Objective - Vital Signs/Intake and Output Vital Signs (last 24 hours): Temp Pulse Resp BP Pulse Ox 99 F 76 96 H 112/82 94 L 09/13/17 13:35 09/13/17 13:35 09/13/17 13:35 09/13/17 13:35 09/13/17 08:00 Intake and Output: 09/13/17 09/13/17 06:59 18:59 Intake Total 1200 950 Balance 1200 950 - Medications Medications: Current Medications Albuterol/Ipratropium (Duoneb 3 Mg/0.5 Mg (3 Ml) Ud) 3 ml INH RQ6 [facility] Last Admin: 09/13/17 13:21 Dose: Not Given Clonazepam (Klonopin) 1 mg PO BID [facility] Last Admin: 09/13/17 09:25 Dose: 1 mg Enoxaparin Sodium (Lovenox) 30 mg SC DAILY [facility] Last Admin: 09/13/17 09:29 Dose: 30 mg Famotidine (Pepcid) 20 mg PO BID [facility] Last Admin: 09/13/17 09:25 Dose: 20 mg Ferric Sodium Gluconate Complex (Ferrlecit) 125 mg IVPB DAILY [facility] Stop: 09/15/17 10:01 Last Admin: 09/13/17 09:23 Dose: 125 mg Hydromorphone HCl (Dilaudid) 0.5 mg IVP Q4 PRN PRN Reason: Pain, moderate (4-7) Last Admin: 09/13/17 16:27 Dose: 0.5 mg Potassium Chloride/Dextrose/Sod Cl (Potassium Chl 20 Meq In D5-1/2ns) 1,000 mls @ 100 mls/hr IV .Q10H [facility] Last Admin: 09/13/17 12:00 Dose: 100 mls/hr Piperacillin Sod/Tazobactam Sod (Zosyn 3.375 Gm Iv Premix) 3.375 gm in 50 mls @ 100 mls/hr IVPB Q8 [facility] Last Admin: 09/13/17 13:30 Dose: 100 mls/hr Metoclopramide HCl (Reglan) 5 mg IVP Q6 [facility] Last Admin: 09/13/17 12:00 Dose: 5 mg Trazodone HCl (Desyrel) 50 mg PO HS [facility] Last Admin: 09/12/17 21:08 Dose: 50 mg - Labs Labs: 09/13/17 07:15 09/13/17 07:15 PT 13.4 SECONDS (9.7-12.2) H 09/09/17 06:33 INR 1.2 09/09/17 06:33 APTT 36 SECONDS (21-34) H 09/09/17 06:33 Assessment and Plan (1) Pleural effusion Status: Acute (2) Hypercapnic respiratory failure Status: Acute
--- NOTE | 2017-09-13 23:32 | CP.PCM.PN ---
Subjective - Date & Time of Evaluation Date of Evaluation: 09/13/17 Time of Evaluation: 17:00 - Subjective Subjective: Pt seen and examined at bedside, remains weak, seen by pulmonary CT tube and draiange recomended pt is is refusong chest tube Objective - Vital Signs/Intake and Output Vital Signs (last 24 hours): Temp Pulse Resp BP Pulse Ox 99 F 116 H 96 H 112/82 94 L 09/13/17 13:35 09/13/17 21:57 09/13/17 13:35 09/13/17 13:35 09/13/17 08:00 Intake and Output: 09/13/17 09/14/17 18:59 06:59 Intake Total 950 1280 Balance 950 1280 - Medications Medications: Current Medications Albuterol/Ipratropium (Duoneb 3 Mg/0.5 Mg (3 Ml) Ud) 3 ml INH RQ6 [facility] Last Admin: 09/13/17 19:41 Dose: 3 ml Clonazepam (Klonopin) 1 mg PO BID [facility] Last Admin: 09/13/17 18:17 Dose: 1 mg Enoxaparin Sodium (Lovenox) 30 mg SC DAILY [facility] Last Admin: 09/13/17 09:29 Dose: 30 mg Famotidine (Pepcid) 20 mg PO BID [facility] Last Admin: 09/13/17 18:17 Dose: 20 mg Ferric Sodium Gluconate Complex (Ferrlecit) 125 mg IVPB DAILY [facility] Stop: 09/15/17 10:01 Last Admin: 09/13/17 09:23 Dose: 125 mg Hydromorphone HCl (Dilaudid) 0.5 mg IVP Q4 PRN PRN Reason: Pain, moderate (4-7) Last Admin: 09/13/17 20:38 Dose: 0.5 mg Potassium Chloride/Dextrose/Sod Cl (Potassium Chl 20 Meq In D5-1/2ns) 1,000 mls @ 100 mls/hr IV .Q10H [facility] Last Admin: 09/13/17 22:03 Dose: 100 mls/hr Piperacillin Sod/Tazobactam Sod (Zosyn 3.375 Gm Iv Premix) 3.375 gm in 50 mls @ 100 mls/hr IVPB Q8 [facility] Last Admin: 09/13/17 22:03 Dose: 100 mls/hr Metoclopramide HCl (Reglan) 5 mg IVP Q6 [facility] Last Admin: 09/13/17 18:17 Dose: 5 mg Trazodone HCl (Desyrel) 50 mg PO HS [facility] Last Admin: 09/13/17 22:03 Dose: 50 mg - Labs Labs: 09/13/17 07:15 09/13/17 07:15 PT 13.4 SECONDS (9.7-12.2) H 09/09/17 06:33 INR 1.2 09/09/17 06:33 APTT 36 SECONDS (21-34) H 09/09/17 06:33 Assessment and Plan (1) Abdominal pain Status: Acute (2) Pleural effusion Status: Acute (3) Acute pancreatitis Status: Acute (4) Dehydration Status: Acute
[2017-09-14] MEDS: HYDROmorphone 0.5 mg/0.5 ml ISec IVP PRN ×6 (00:36→22:55)
[2017-09-14] MEDS: Albuterol-Ipratrop 3 mg / 0.5 (3 ml) UD INH SCH ×4 (01:41→19:41)
[2017-09-14] MEDS: Piperacill/Tazo 3.375gm in Dex 3.375 GM/50 ML BAG IVPB SCH ×3 (05:57→22:55)
[2017-09-14] MEDS: Ferric Sodium Gluconat Complex 62.5 mg/5 ml Vial IVPB SCH (09:38)
[2017-09-14] MEDS: Enoxaparin 30 mg Syringe SC SCH (09:39)
[2017-09-14] MEDS: Potassium Ch 20mEq in D5-1/2NS 1,000 ML IV SCH (09:40)
[2017-09-14] MEDS: LIPASE/PROTEASE/AMYLASE 4,200 U ECC PO SCH ×3 (09:41→18:44)
--- NOTE | 2017-09-14 10:06 | RAD ---
HISTORY: Shortness of breath COMPARISON: 09/13/2017. FINDINGS: LUNGS: There is aeration in the right upper lobe. The left lung is clear. PLEURA: There is no change in large right pleural effusion. No pneumothorax apparent. CARDIOVASCULAR: Stable in appearance. OSSEOUS STRUCTURES: No significant abnormalities. VISUALIZED UPPER ABDOMEN: Normal. OTHER FINDINGS: None. IMPRESSION: Large right pleural effusion without interval change. Right lower lobe airspace disease/mass cannot be excluded.
--- NOTE | 2017-09-14 10:46 | CP.PCM.PN ---
Subjective - Date & Time of Evaluation Date of Evaluation: 09/14/17 Time of Evaluation: 10:30 - Subjective Subjective: CT Surgery Pt S&E, NAEO. No SOB this AM. Still with some epigastric pain. Tolerating diet. No other complaints. Objective - Vital Signs/Intake and Output Vital Signs (last 24 hours): Temp Pulse Resp BP Pulse Ox 98.5 F 92 H 20 131/81 98 09/14/17 08:28 09/14/17 08:28 09/14/17 08:28 09/14/17 08:28 09/14/17 08:28 Intake and Output: 09/14/17 09/14/17 06:59 18:59 Intake Total 2230 Balance 2230 - Medications Medications: Current Medications Albuterol/Ipratropium (Duoneb 3 Mg/0.5 Mg (3 Ml) Ud) 3 ml INH RQ6 [facility] Last Admin: 09/14/17 08:42 Dose: 3 ml Clonazepam (Klonopin) 1 mg PO BID [facility] Last Admin: 09/14/17 09:38 Dose: 1 mg Enoxaparin Sodium (Lovenox) 30 mg SC DAILY [facility] Last Admin: 09/14/17 09:39 Dose: Not Given Famotidine (Pepcid) 20 mg PO BID [facility] Last Admin: 09/14/17 09:38 Dose: 20 mg Ferric Sodium Gluconate Complex (Ferrlecit) 125 mg IVPB DAILY [facility] Stop: 09/15/17 10:01 Last Admin: 09/14/17 09:38 Dose: 125 mg Hydromorphone HCl (Dilaudid) 0.5 mg IVP Q4 PRN PRN Reason: Pain, moderate (4-7) Last Admin: 09/14/17 10:09 Dose: 0.5 mg Potassium Chloride/Dextrose/Sod Cl (Potassium Chl 20 Meq In D5-1/2ns) 1,000 mls @ 100 mls/hr IV .Q10H [facility] Last Admin: 09/14/17 09:40 Dose: 100 mls/hr Piperacillin Sod/Tazobactam Sod (Zosyn 3.375 Gm Iv Premix) 3.375 gm in 50 mls @ 100 mls/hr IVPB Q8 [facility] Last Admin: 09/14/17 05:57 Dose: 100 mls/hr Metoclopramide HCl (Reglan) 5 mg IVP Q6 [facility] Last Admin: 09/14/17 05:57 Dose: 5 mg Trazodone HCl (Desyrel) 50 mg PO HS [facility] Last Admin: 09/13/17 22:03 Dose: 50 mg - Labs Labs: 09/13/17 07:15 09/13/17 07:15 PT 13.4 SECONDS (9.7-12.2) H 09/09/17 06:33 INR 1.2 09/09/17 06:33 APTT 36 SECONDS (21-34) H 09/09/17 06:33 - Constitutional Appears: Non-toxic, No Acute Distress - Head Exam Head Exam: ATRAUMATIC, NORMOCEPHALIC - Respiratory Exam Respiratory Exam: Decreased Breath Sounds (over R base), NORMAL BREATHING PATTERN. absent: Respiratory Distress - GI/Abdominal Exam GI & Abdominal Exam: Soft, Tenderness (epigastrum). absent: Distended, Guarding - Back Exam Back Exam: absent: CVA tenderness (L), CVA tenderness (R) - Neurological Exam Neurological Exam: Alert, Awake - Skin Skin Exam: Dry, Warm Assessment and Plan - Assessment and Plan (Free Text) Assessment: 56 F with pancreatitis and R sided pleural effusion Plan: Get CT of chest today Medical management as per primary -Possible surgical intervention based in CT results. Requesting 2nd thoracentesis, get amylase level of pleural fluid D/W Dr. Kan Ortiz PGY4
--- NOTE | 2017-09-14 16:58 | CT ---
PROCEDURE: CT Chest without contrast HISTORY: Evaluate pleural effusion COMPARISON: 09/09/2017. TECHNIQUE: Contiguous axial images were obtained through the chest without intravenous contrast enhancement. Sagittal and coronal reconstructions were performed. Radiation dose (DLP): 163.63 mGy-cm. This CT exam was performed using one or more of the following dose reduction techniques: Automated exposure control, adjustment of the mA and/or kV according to patient size, and/or use of iterative reconstruction technique. FINDINGS: LUNGS: There is compressive atelectasis of the right lower lobe. There is diffuse centrilobular emphysema in the right upper lobe and left lung. There is linear atelectasis/scarring in the right middle lobe and left lower lobe. No nodule, mass or consolidation. There are no endobronchial lesions. MEDIASTINUM: The aorta is normal in caliber. Normal sized heart. There is enlargement of the main pulmonary artery. No lymphadenopathy. PLEURA: No change in large right pleural effusion. No left pleural effusion. No pneumothorax. BONES: No fracture. No destructive lesion. UPPER ABDOMEN: There is redemonstration of fluid in the retro crural region, gastroesophageal region, peripancreatic region and posterior mediastinum. OTHER FINDINGS: An infrarenal IVC filter remains in place. IMPRESSION: No significant interval change in large right pleural effusion and compressive atelectasis of the right lower lobe. Given accumulation of fluid in mediastinum, retrocrural region and peripancreatic region, chylous effusion is a consideration.
--- NOTE | 2017-09-14 23:40 | CP.PCM.PN ---
Subjective - Date & Time of Evaluation Date of Evaluation: 09/14/17 Time of Evaluation: 19:00 - Subjective Subjective: Pt seen and evaluated by me at bedside, charts and meds reviewed, chest tube inserted from drainage of fluid from pleural effusion Objective - Vital Signs/Intake and Output Vital Signs (last 24 hours): Temp Pulse Resp BP Pulse Ox 98.2 F 101 H 20 110/73 96 09/14/17 15:57 09/14/17 15:57 09/14/17 15:57 09/14/17 15:57 09/14/17 15:57 Intake and Output: 09/14/17 09/15/17 18:59 06:59 Intake Total 1550 Balance 1550 - Medications Medications: Current Medications Clonazepam (Klonopin) [address] [facility] Last Admin: 09/14/17 18:32 Dose: 1 mg Enoxaparin Sodium (Lovenox) [address] [facility] Last Admin: 09/14/17 09:39 Dose: Not Given Famotidine (Pepcid) [address] [facility] Last Admin: 09/14/17 18:32 Dose: 20 mg Ferric Sodium Gluconate Complex (Ferrlecit) [address] [facility] Stop: 09/15/17 10:01 Last Admin: 09/14/17 09:38 Dose: 125 mg Hydromorphone HCl (Dilaudid) 0.5 mg IVP Q4 PRN PRN Reason: Pain, moderate (4-7) Last Admin: 09/14/17 22:55 Dose: 0.5 mg Piperacillin Sod/Tazobactam Sod (Zosyn 3.375 Gm Iv Premix) 3.375 gm in 50 mls @ 100 mls/hr IVPB Q8 [facility] Last Admin: 09/14/17 22:55 Dose: 100 mls/hr Metoclopramide HCl (Reglan) [address] [facility] Last Admin: 09/14/17 18:32 Dose: 5 mg Trazodone HCl (Desyrel) [address] [facility] Last Admin: 09/14/17 22:55 Dose: 50 mg - Labs Labs: 09/13/17 07:15 09/13/17 07:15 PT 13.4 SECONDS (9.7-12.2) H 09/09/17 06:33 INR 1.2 09/09/17 06:33 APTT 36 SECONDS (21-34) H 09/09/17 06:33 Assessment and Plan (1) Abdominal pain Status: Acute (2) Pleural effusion Status: Acute (3) Acute pancreatitis Status: Acute (4) Dehydration Status: Acute
--- NOTE | 2017-09-15 01:43 | CON ---
DATE: 09/09/2017 As from Yin Patel MD and Connor Baker MD HISTORY OF PRESENT ILLNESS: I was called for GI consultation by the admitting MD. The patient is seen and fully examined on 09/09/2017 as requested by the admitting medical staff. The entire chart is reviewed including but not limited most recent lab and radiologic study results, current and previous medication list, current and previous medical events, allergy to medication list as well as all the available current and previous medical records. Case discussed with the staff at length in the floor. This is a 56-year-old female who was admitted to the hospital through the emergency room with the main complaint of severe abdominal pain, loss of appetite, excessive body weight loss recently, keeping in the mind of past medical history of recurrent episodes of pancreatitis. The patient had been taking Percocet and Tylenol No.3 for her pain without any reported improvement. PAST MEDICAL HISTORY: Including but not limited: 1. COPD with bronchitis. 2. Pneumonia. 3. Recurrent pancreatitis. 4. Reported gallbladder stones. 5. Depression. 6. Peptic ulcer disease. FAMILY HISTORY: Unknown. SOCIAL HISTORY: Positive for cigarette smoking, but no alcohol intake. ALLERGIES TO MEDICATIONS: UNCLEAR. CURRENT MEDICATIONS: Medication list was reviewed. PHYSICAL EXAMINATION: GENERAL: A 56-year-old female appeared to be somewhat mildly cachectic. VITAL SIGNS: Afebrile with pulse of 80, respiratory rate 20 to 22, and blood pressure 120/76. HEENT: Showed pale dry oral mucous membranes, nonicteric sclerae. LYMPH NODES: No lymphadenitis or lymphadenopathy. LUNGS: Few scattered crepitation with decreased air entry at bases bilaterally. HEART: Positive S1 and S2. ABDOMEN: Soft with mild generalized tenderness. No mass or organomegaly. No rebound tenderness or guarding. RECTAL: The patient refused. EXTREMITIES: Without significant edema, clubbing, or cyanosis. NEUROLOGIC: No reported new neurological deficits, sensory or motor. LABORATORY DATA: After being admitted to the hospital, the patient was found to have low hemoglobin of 9.5, hematocrit of 31.4, low with increased platelet count of 469, but low BUN of 6, creatinine low of 0.5 with increased CO2 content of 34 indicative of respiratory alkalosis. Chest x-ray showed pleural effusion. IMPRESSION: 1. Excessive body weight loss of unclear etiology, rule out occult gastrointestinal malignancy. 2. Anemia, most likely secondary to above. 3. Past medical history including, but not limited to chronic obstructive pulmonary disease, pneumonia, recurrent pancreatitis with cholelithiasis, as well as depression. 4. Pleural effusion of unclear etiology, rule out malignant pleural effusion versus possible lung mass lesion. SUGGESTION: 1. Agree with your plan. 2. The patient will need thoracocentesis. 3. Upper and lower endoscopy, when the patient is more stable clinically. 4. Proton pump inhibitors IV. 5. Cancer markers including CEA. 6. Serum lipase and amylase level. 7. Sectional abdominal and pelvic CAT scan. 8. Further recommend to follow. Thank you for letting me to participate in your patient's case management. Yin Patel MD cc: Yin Patel MD
[2017-09-15] MEDS: HYDROmorphone 0.5 mg/0.5 ml ISec IVP PRN ×5 (03:02→21:14)
[2017-09-15] MEDS: Piperacill/Tazo 3.375gm in Dex 3.375 GM/50 ML BAG IVPB SCH ×2 (05:46→14:12)
[2017-09-15] MEDS: Ferric Sodium Gluconat Complex 62.5 mg/5 ml Vial IVPB SCH (09:48)
[2017-09-15] MEDS: LIPASE/PROTEASE/AMYLASE 4,200 U ECC PO SCH ×3 (09:48→17:09)
[2017-09-15] MEDS: Enoxaparin 30 mg Syringe SC SCH (09:49)
--- NOTE | 2017-09-15 09:58 | PN ---
DATE: LOCATION: [facility], bed A. SUBJECTIVE: This is a 56-year-old female, seen and examined in rounds, with intermittent periods of shortness of breath, but less than before. No reported active bleeding but generalized weakness and malaise. The entire chart is reviewed including, but not limited to the most recent lab and radiology study results, current and the previous medication list, current and the previous medical events and stool for occult blood recently reported to be positive. Today's lab is still pending, and the patient had elevated lipase and amylase level before. Yesterday, chest x-ray, report is seen indicative of large right pleural effusion. The patient will need thoracocentesis. PHYSICAL EXAMINATION: GENERAL: A 56-year-old female. VITAL SIGNS: Afebrile with pulse of 96, respiratory rate 20 to 22 with blood pressure of 140/82. HEENT: Showed pale, dry oral mucous membrane. Nonicteric sclerae. LUNGS: Scattered crepitation, decreased air entry at bases. HEART: Positive S1 and S2. ABDOMEN: Soft. Bowel sounds are present with mild generalized tenderness. No mass or organomegaly. No rebound tenderness or guarding. EXTREMITIES: With evidence of mild muscle wasting syndrome. No clubbing or cyanosis, but lower extremity mild edematous changes. NEUROLOGIC: No reported new neurological deficits, sensory or motor. IMPRESSION: 1. Peptic ulcer disease. 2. Severe anemia. 3. Acute pancreatitis, gradually improving. 4. To rule out occult lower gastrointestinal cancer. 5. Large right-sided pleural effusion with pneumonia and possible mass lesion, with malignant pleural effusion. 6. Malnutrition with hypoalbuminemia gradually, but not adequately improving. 7. Known history of, but not limited to depression, chronic obstructive pulmonary disease, and an anxiety syndrome. SUGGESTIONS: 1. Continue current management. 2. Repeat thoracocentesis. 3. The patient may need chest tube due to her recurrent right-sided pleural effusion. 4. Colonoscopy is to rescheduled when the patient is more stable clinically. 5. Further recommendation to follow. Yin Patel MD
--- NOTE | 2017-09-15 12:45 | PCM.SURG1 ---
Surgeon's Initial Post Op Note - Surgeon's Notes Surgeon: Carlito Zuniga MD Insole Lip Turner: None Type of Anesthesia: Local Pre-Operative Diagnosis: SOB Operative Findings: Large right pleural effusion Post-Operative Diagnosis: Right pleural effusion Operation Performed: US Guided RIGHT Thoracentesis (Dx/Tx) Specimen/Specimens Removed: 1.1 L serosanguinous fluid (60 cc specimen) Estimated Blood Loss: EBL {In ML}: 0 Date of Surgery/Procedure: 09/15/17 Time of Surgery/Procedure: 12:20
--- NOTE | 2017-09-15 14:03 | PN ---
LOCATION: [facility], bed A. SUBJECTIVE: This is a 56-year-old female, seen and examined in rounds without significant clinical changes, but with generalized weakness and malaise with less oral intake. The entire chart is reviewed including, but not limited to the most recent lab and radiology study results, current and the previous medication list, current and the previous medical events. Today's lab is still pending, but stool reported to be positive for occult blood. Most recent chest x-ray done yesterday, report is seen. PHYSICAL EXAMINATION: GENERAL: A 56-year-old female. VITAL SIGNS: Afebrile with pulse of 92, respiratory rate 20 to 22, blood pressure of 112/76. HEENT: Showed pale, dry oral mucous membrane. Nonicteric sclerae. LUNGS: Few scattered crepitation, decreased air entry at bases bilaterally. HEART: Positive S1 and S2 with increased rate. ABDOMEN: Soft. Bowel sounds are present. No mass or organomegaly. No rebound tenderness or guarding. EXTREMITIES: Without edema, clubbing or cyanosis. NEUROLOGIC: No reported new neurological deficits, sensory or motor. IMPRESSION: 1. Acute pancreatitis, gradually improving. 2. Reexacerbation of peptic ulcer disease. 3. Severe anemia to rule out lower GI tract blood loss. 4. To rule out occult GI malignancy. 5. Pleural effusion, pneumonia with possible right-sided lung mass lesion. 6. Malnutrition with hypoalbuminemia. 7. Known history of chronic obstructive pulmonary disease, anxiety syndrome with depression. SUGGESTIONS: 1. Agree with your plan. 2. The patient for colonoscopy when she is more stable clinically. 3. Repeat thoracocentesis via thoracic surgeon consultation. 4. Further evaluation and recommendation to follow. Yin Patel MD cc: Yin Patel MD
--- NOTE | 2017-09-15 14:30 | CP.PCM.PN ---
Subjective - Date & Time of Evaluation Date of Evaluation: 09/15/17 Time of Evaluation: 14:13 - Subjective Subjective: Pt s/e. Progress notes and imaging studies reviewed. The patient has pmh of pancreatitis for many years who now presents with right pleural effusion, and atelectasis. She now is able to walk only a few steps at a time without being sob. I would like to define pleural effusion a little bit better before any surgical interventions, ie is this truly due to acute pancreatitis, for which we need amylase, and to r/o possobility of chylous effusuion, I added triglycerides and cholesterol levels in addition to amylases level on todays effusion, a/p: right plerual effusion-etiol ? Will drain as soon as we determine the etiol of effusion. Objective - Vital Signs/Intake and Output Vital Signs (last 24 hours): Temp Pulse Resp BP Pulse Ox 98.5 F 96 H 20 116/79 98 09/15/17 08:07 09/15/17 08:07 09/15/17 08:07 09/15/17 08:07 09/15/17 08:07 Intake and Output: 09/15/17 09/15/17 06:59 18:59 Intake Total 1730 Balance 1730 - Medications Medications: Current Medications Clonazepam (Klonopin) 1 mg PO BID [facility] Last Admin: 09/15/17 09:48 Dose: 1 mg Enoxaparin Sodium (Lovenox) 30 mg SC DAILY [facility] Last Admin: 09/15/17 09:49 Dose: Not Given Famotidine (Pepcid) 20 mg PO BID [facility] Last Admin: 09/15/17 09:48 Dose: 20 mg Hydromorphone HCl (Dilaudid) 0.5 mg IVP Q4 PRN PRN Reason: Pain, moderate (4-7) Last Admin: 09/15/17 12:51 Dose: 0.5 mg Metoclopramide HCl (Reglan) 5 mg IVP Q6 [facility] Last Admin: 09/15/17 12:51 Dose: 5 mg Trazodone HCl (Desyrel) 50 mg PO HS [facility] Last Admin: 09/14/17 22:55 Dose: 50 mg - Labs Labs: 09/13/17 07:15 09/13/17 07:15 PT 13.4 SECONDS (9.7-12.2) H 09/09/17 06:33 INR 1.2 09/09/17 06:33 APTT 36 SECONDS (21-34) H 09/09/17 06:33
[2017-09-15 14:53] LABS: BODY FLUID TYPE PLEURAL/THORACENTESI
[2017-09-15 15:58] LABS: BF GROSS APPEARANCE CLOUDY (CLEAR)
--- NOTE | 2017-09-15 16:28 | US ---
PROCEDURE: ULTRASOUND-GUIDED THORACENTESIS CLINICAL HISTORY: 56-year-old female with symptomatic right pleural effusion is referred to Interventional Radiology for ultrasound-guided thoracentesis. COMPARISON: CT chest dated 09/14/2017. PROCEDURE: 1. Ultrasound-guided right thoracentesis. PRE-PROCEDURE FINDINGS: 1. Large volume pleural effusion. POST-PROCEDURE FINDINGS: 1. No evidence of post-procedural complication. INTERVENTIONAL RADIOLOGIST: Carlito Zuniga M.D. (the attending was present for the entire procedure.) ANESTHESIA: None. MEDICATION: Lidocaine 1% for local subcutaneous analgesia. COMPLICATIONS: None. PROCEDURE DESCRIPTION AND FINDINGS: The risks, benefits, alternatives and possible complications of the procedure were fully discussed; all questions were answered and informed consent was obtained. The patient was brought into the interventional suite and a pre-procedure 'time-out' was performed. The patient was placed in the seated position. Preliminary ultrasound images of the right hemithorax demonstrate a large simple pleural effusion. The right hemithorax was prepped and draped in the usual sterile fashion. Maximum sterile barrier precautions were maintained throughout the entire procedure. Following subcutaneous infiltration of lidocaine 1% for local analgesia, under ultrasound guidance, a 5 [place]onian centesis catheter was advanced into the right pleural space with real-time visualization of needle entry. The ultrasound images were permanently recorded and submitted to the PACS. The inner stylet was removed with prompt return of serosanguinous fluid. The catheter was attached to gentle vacuum suction. A total of 1100 mL of serosanguineous fluid was aspirated. A sample was sent to the laboratory for analysis. The drainage catheter was then removed. A sterile adhesive bandage was placed over the puncture site. The patient tolerated the procedure well without immediate post-procedure complications and was transferred back to the floor in stable condition. IMPRESSION: SUCCESSFUL ULTRASOUND-GUIDED RIGHT-SIDED DIAGNOSTIC AND THERAPEUTIC THORACENTESIS.
--- NOTE | 2017-09-15 17:16 | CP.PCM.PN ---
Subjective - Date & Time of Evaluation Date of Evaluation: 09/15/17 Time of Evaluation: 09:00 - Subjective Subjective: patient seen and examined Still complaining of shortness of breath Status post thoracentesis and one lit of fluid removed Unlikely chylous effusion as initial fluid was blood tinged Rule out secondary to pancreatitis Objective - Vital Signs/Intake and Output Vital Signs (last 24 hours): Temp Pulse Resp BP Pulse Ox 98.3 F 103 H 18 95/63 L 99 09/15/17 15:03 09/15/17 15:03 09/15/17 15:03 09/15/17 15:03 09/15/17 15:03 Intake and Output: 09/15/17 09/15/17 06:59 18:59 Intake Total 1730 Balance 1730 - Medications Medications: Current Medications Clonazepam (Klonopin) 1 mg PO BID [facility] Last Admin: 09/15/17 17:08 Dose: 1 mg Enoxaparin Sodium (Lovenox) 30 mg SC DAILY [facility] Last Admin: 09/15/17 09:49 Dose: Not Given Famotidine (Pepcid) 20 mg PO BID [facility] Last Admin: 09/15/17 17:08 Dose: 20 mg Hydromorphone HCl (Dilaudid) 0.5 mg IVP Q4 PRN PRN Reason: Pain, moderate (4-7) Last Admin: 09/15/17 17:09 Dose: 0.5 mg Metoclopramide HCl (Reglan) 5 mg IVP Q6 [facility] Last Admin: 09/15/17 17:08 Dose: 5 mg Trazodone HCl (Desyrel) 50 mg PO HS [facility] Last Admin: 09/14/17 22:55 Dose: 50 mg - Labs Labs: 09/13/17 07:15 09/13/17 07:15 PT 13.4 SECONDS (9.7-12.2) H 09/09/17 06:33 INR 1.2 09/09/17 06:33 APTT 36 SECONDS (21-34) H 09/09/17 06:33 - Head Exam Head Exam: ATRAUMATIC, NORMOCEPHALIC - Eye Exam Eye Exam: EOMI - ENT Exam ENT Exam: Mucous Membranes Moist - Neck Exam Neck Exam: Normal Inspection - Respiratory Exam Respiratory Exam: Decreased Breath Sounds - Cardiovascular Exam Cardiovascular Exam: REGULAR RHYTHM - GI/Abdominal Exam GI & Abdominal Exam: Soft, Normal Bowel Sounds Assessment and Plan (1) Pleural effusion Assessment & Plan: fluid analysis I don't see any cytology report from initial thoracentesis 3 bottles with orders sent to the lab Status: Acute (2) Hypercapnic respiratory failure Status: Acute
--- NOTE | 2017-09-15 22:36 | CP.PCM.PN ---
Subjective - Date & Time of Evaluation Date of Evaluation: 09/15/17 Time of Evaluation: 19:00 - Subjective Subjective: Pt seen and examined, fluid was drained from chest and send for cytology, pt was refusing chest tube before but later agreed Objective - Vital Signs/Intake and Output Vital Signs (last 24 hours): Temp Pulse Resp BP Pulse Ox 98.3 F 103 H 18 95/63 L 99 09/15/17 15:03 09/15/17 15:03 09/15/17 15:03 09/15/17 15:03 09/15/17 15:03 - Medications Medications: Current Medications Clonazepam (Klonopin) 1 mg PO BID [facility] Last Admin: 09/15/17 17:08 Dose: 1 mg Enoxaparin Sodium (Lovenox) 30 mg SC DAILY [facility] Last Admin: 09/15/17 09:49 Dose: Not Given Famotidine (Pepcid) 20 mg PO BID [facility] Last Admin: 09/15/17 17:08 Dose: 20 mg Hydromorphone HCl (Dilaudid) 0.5 mg IVP Q4 PRN PRN Reason: Pain, moderate (4-7) Last Admin: 09/15/17 21:14 Dose: 0.5 mg Metoclopramide HCl (Reglan) 5 mg IVP Q6 [facility] Last Admin: 09/15/17 17:08 Dose: 5 mg Trazodone HCl (Desyrel) 50 mg PO HS [facility] Last Admin: 09/15/17 21:14 Dose: 50 mg - Labs Labs: 09/13/17 07:15 09/13/17 07:15 PT 13.4 SECONDS (9.7-12.2) H 09/09/17 06:33 INR 1.2 09/09/17 06:33 APTT 36 SECONDS (21-34) H 09/09/17 06:33 - Constitutional Appears: No Acute Distress - Head Exam Head Exam: ATRAUMATIC, NORMAL INSPECTION, NORMOCEPHALIC - ENT Exam ENT Exam: Mucous Membranes Moist, Normal Exam - Respiratory Exam Respiratory Exam: Decreased Breath Sounds, Rales - Cardiovascular Exam Cardiovascular Exam: REGULAR RHYTHM, +S1, +S2. absent: Murmur - GI/Abdominal Exam GI & Abdominal Exam: Soft, Normal Bowel Sounds. absent: Tenderness - Neurological Exam Neurological Exam: Alert, Awake, CN II-XII Intact, Normal Gait, Oriented x3 Assessment and Plan (1) Abdominal pain Status: Acute (2) Pleural effusion Status: Acute (3) Acute pancreatitis Status: Acute (4) Dehydration Status: Acute
[2017-09-16] MEDS: HYDROmorphone 0.5 mg/0.5 ml ISec IVP PRN ×6 (01:00→21:20)
[2017-09-16] MEDS: LIPASE/PROTEASE/AMYLASE 4,200 U ECC PO SCH ×3 (08:09→17:35)
--- NOTE | 2017-09-16 09:11 | CP.PCM.PN ---
Subjective - Date & Time of Evaluation Date of Evaluation: 09/16/17 Time of Evaluation: 09:09 - Subjective Subjective: Surgery: Dr. Omer Pt seen and examined. Resting comfortably in bed. She states that her breathing is improved. No F/C. No cough. Objective - Vital Signs/Intake and Output Vital Signs (last 24 hours): Temp Pulse Resp BP Pulse Ox 97.8 F 87 18 97/64 L 100 09/16/17 07:10 09/16/17 07:10 09/16/17 07:10 09/16/17 07:10 09/16/17 07:10 Intake and Output: 09/16/17 09/16/17 06:59 18:59 Intake Total 500 Output Total 600 Balance -100 - Medications Medications: Current Medications Clonazepam (Klonopin) 1 mg PO BID [facility] Last Admin: 09/15/17 17:08 Dose: 1 mg Enoxaparin Sodium (Lovenox) 30 mg SC DAILY [facility] Last Admin: 09/15/17 09:49 Dose: Not Given Famotidine (Pepcid) 20 mg PO BID [facility] Last Admin: 09/15/17 17:08 Dose: 20 mg Hydromorphone HCl (Dilaudid) 0.5 mg IVP Q4 PRN PRN Reason: Pain, moderate (4-7) Last Admin: 09/16/17 05:11 Dose: 0.5 mg Metoclopramide HCl (Reglan) 5 mg IVP Q6 [facility] Last Admin: 09/16/17 05:11 Dose: 5 mg Trazodone HCl (Desyrel) 50 mg PO HS [facility] Last Admin: 09/15/17 21:14 Dose: 50 mg - Labs Labs: 09/13/17 07:15 09/13/17 07:15 PT 13.4 SECONDS (9.7-12.2) H 09/09/17 06:33 INR 1.2 09/09/17 06:33 APTT 36 SECONDS (21-34) H 09/09/17 06:33 - Constitutional Appears: Non-toxic, No Acute Distress, Older Than Stated Age, Cachectic, Chronically Ill - Head Exam Head Exam: ATRAUMATIC, NORMOCEPHALIC - Eye Exam Eye Exam: EOMI - ENT Exam ENT Exam: Mucous Membranes Moist - Neck Exam Neck Exam: Full ROM - Respiratory Exam Respiratory Exam: NORMAL BREATHING PATTERN. absent: Accessory Muscle Use, Respiratory Distress - GI/Abdominal Exam GI & Abdominal Exam: Soft. absent: Tenderness - Extremities Exam Extremities Exam: absent: Calf Tenderness, Pedal Edema - Neurological Exam Neurological Exam: Alert, Awake, Oriented x3 - Psychiatric Exam Psychiatric exam: Normal Affect, Normal Mood Assessment and Plan - Assessment and Plan (Free Text) Assessment: 56F w. R pleural effusion, s/p thoracentesis -f/u fluid analysis of pleural fluid -per lab, plueral fluid amylase is send out, 3-5 days for results -repeat CXR in AM for comparison -d/w attending Zemaitis PGY3
[2017-09-16] MEDS: Enoxaparin 30 mg Syringe SC SCH ×2 (09:21→09:29)
--- NOTE | 2017-09-16 12:22 | CP.PCM.PN ---
Subjective - Date & Time of Evaluation Date of Evaluation: 09/16/17 Time of Evaluation: 12:21 - Subjective Subjective: Awaiting amylase level in pleural effusion. Objective - Vital Signs/Intake and Output Vital Signs (last 24 hours): Temp Pulse Resp BP Pulse Ox 97.8 F 87 18 97/64 L 100 09/16/17 07:10 09/16/17 07:10 09/16/17 07:10 09/16/17 07:10 09/16/17 07:10 Intake and Output: 09/16/17 09/16/17 06:59 18:59 Intake Total 500 Output Total 600 Balance -100 - Medications Medications: Current Medications Clonazepam (Klonopin) 1 mg PO BID [facility] Last Admin: 09/16/17 09:21 Dose: 1 mg Enoxaparin Sodium (Lovenox) 30 mg SC DAILY [facility] Last Admin: 09/16/17 09:29 Dose: Not Given Famotidine (Pepcid) 20 mg PO BID [facility] Last Admin: 09/16/17 09:21 Dose: 20 mg Hydromorphone HCl (Dilaudid) 0.5 mg IVP Q4 PRN PRN Reason: Pain, moderate (4-7) Last Admin: 09/16/17 09:21 Dose: 0.5 mg Metoclopramide HCl (Reglan) 5 mg IVP Q6 [facility] Last Admin: 09/16/17 12:00 Dose: 5 mg Trazodone HCl (Desyrel) 50 mg PO HS [facility] Last Admin: 09/15/17 21:14 Dose: 50 mg - Labs Labs: 09/13/17 07:15 09/13/17 07:15 PT 13.4 SECONDS (9.7-12.2) H 09/09/17 06:33 INR 1.2 09/09/17 06:33 APTT 36 SECONDS (21-34) H 09/09/17 06:33
--- NOTE | 2017-09-16 14:07 | RAD ---
HISTORY: Follow-up. Status post right thoracentesis Relevant interventional procedure(s): Right thoracentesis with recovery of 1.1 L fluid. COMPARISON: Preprocedural study 09/14/2017. FINDINGS: LUNGS: Commensurate re-expansion of right lower lobe, right middle lobe. PLEURA: Substantial decrease in right pleural effusion. CARDIOVASCULAR: Normal. OSSEOUS STRUCTURES: No significant abnormalities. VISUALIZED UPPER ABDOMEN: Normal. OTHER FINDINGS: None. IMPRESSION: Moderate residual right pleural effusion. Marked improved aeration right lower lobe, right middle lobe. No pneumothorax identified.
--- NOTE | 2017-09-16 16:20 | CP.PCM.PN ---
Subjective - Date & Time of Evaluation Date of Evaluation: 09/16/17 Time of Evaluation: 13:00 - Subjective Subjective: Patient seen and examined. Patient states breathing is better after thoracentesis Awaiting for fluid analysis and results Objective - Vital Signs/Intake and Output Vital Signs (last 24 hours): Temp Pulse Resp BP Pulse Ox 97.9 F 103 H 20 91/57 L 99 09/16/17 15:32 09/16/17 15:32 09/16/17 15:32 09/16/17 15:32 09/16/17 15:32 Intake and Output: 09/16/17 09/16/17 06:59 18:59 Intake Total 500 Output Total 600 Balance -100 - Medications Medications: Current Medications Clonazepam (Klonopin) 1 mg PO BID [facility] Last Admin: 09/16/17 09:21 Dose: 1 mg Enoxaparin Sodium (Lovenox) 30 mg SC DAILY [facility] Last Admin: 09/16/17 09:29 Dose: Not Given Famotidine (Pepcid) 20 mg PO BID [facility] Last Admin: 09/16/17 09:21 Dose: 20 mg Hydromorphone HCl (Dilaudid) 0.5 mg IVP Q4 PRN PRN Reason: Pain, moderate (4-7) Last Admin: 09/16/17 13:27 Dose: 0.5 mg Metoclopramide HCl (Reglan) 5 mg IVP Q6 [facility] Last Admin: 09/16/17 12:00 Dose: 5 mg Trazodone HCl (Desyrel) 50 mg PO HS [facility] Last Admin: 09/15/17 21:14 Dose: 50 mg - Labs Labs: 09/13/17 07:15 09/13/17 07:15 PT 13.4 SECONDS (9.7-12.2) H 09/09/17 06:33 INR 1.2 09/09/17 06:33 APTT 36 SECONDS (21-34) H 09/09/17 06:33 - Head Exam Head Exam: ATRAUMATIC, NORMOCEPHALIC - ENT Exam ENT Exam: Mucous Membranes Moist - Neck Exam Neck Exam: Normal Inspection - Respiratory Exam Respiratory Exam: Decreased Breath Sounds - Cardiovascular Exam Cardiovascular Exam: REGULAR RHYTHM - GI/Abdominal Exam GI & Abdominal Exam: Soft, Normal Bowel Sounds - Neurological Exam Neurological Exam: Alert, Oriented x3 Assessment and Plan (1) Pleural effusion Assessment & Plan: Status post repeat thoracentesis Fluid analysis Fluid LDH, total protein, amylase and cytology Status: Acute (2) Hypercapnic respiratory failure Status: Acute
[2017-09-16 16:53] LABS: BASO % 0.3 % (0.0-2.0); EOS # 0.5 K/uL (0.0-0.7); EOS % 4.8 % (0.0-4.0); HEMATOCRIT 34.7 % (34.0-47.0); LYMPH # 1.7 K/uL (1.0-4.3); LYMPH % 18.8 % (20.0-40.0); MEAN CORPUSCULAR HEMOGLOBIN 23.4 pg (27.0-31.0); MEAN CORPUSCULAR HGB CONC 30.8 g/dL (33.0-37.0); MEAN PLATELET VOLUME 7.8 fL (7.2-11.7); MONO # 1.3 K/uL (0.0-0.8); MONO % 14.5 % (0.0-10.0); NRBC % 0.1 % (0.0-2.0); RED CELL DISTRIBUTION WIDTH 24.8 % (11.5-14.5); WHITE BLOOD COUNT 9.3 K/uL (4.8-10.8)
[2017-09-16 16:54] LABS: MEAN CELL VOLUME 75.9 fL (81.0-99.0)
[2017-09-16 17:04] LABS: BLOOD UREA NITROGEN 17 mg/dL (7-17); CARBON DIOXIDE 33 mmol/L (22-30); CHLORIDE 92 mmol/L (98-107); GFR AFRICAN-AMERICAN > 60; GLUCOSE,RANDOM 121 mg/dL (65-105); POTASSIUM 3.5 mmol/L (3.6-5.2); SODIUM 130 mmol/L (132-148)
--- NOTE | 2017-09-16 23:30 | CP.PCM.PN ---
Subjective - Date & Time of Evaluation Date of Evaluation: 09/16/17 Time of Evaluation: 19:00 - Subjective Subjective: Pt seen and examined at bedside, she is anxious, she is short of breath 1 and half litre of fluid drained yesterday Objective - Vital Signs/Intake and Output Vital Signs (last 24 hours): Temp Pulse Resp BP Pulse Ox 97.9 F 103 H 20 91/57 L 99 09/16/17 15:32 09/16/17 15:32 09/16/17 15:32 09/16/17 15:32 09/16/17 15:32 - Medications Medications: Current Medications Clonazepam (Klonopin) 1 mg PO BID [facility] Last Admin: 09/16/17 17:32 Dose: 1 mg Enoxaparin Sodium (Lovenox) 30 mg SC DAILY [facility] Last Admin: 09/16/17 09:29 Dose: Not Given Famotidine (Pepcid) 20 mg PO BID [facility] Last Admin: 09/16/17 17:32 Dose: 20 mg Hydromorphone HCl (Dilaudid) 0.5 mg IVP Q4 PRN PRN Reason: Pain, moderate (4-7) Last Admin: 09/16/17 21:20 Dose: 0.5 mg Metoclopramide HCl (Reglan) 5 mg IVP Q6 [facility] Last Admin: 09/16/17 17:35 Dose: 5 mg Trazodone HCl (Desyrel) 50 mg PO HS [facility] Last Admin: 09/16/17 21:20 Dose: 50 mg - Labs Labs: 09/16/17 16:43 09/16/17 16:43 PT 13.4 SECONDS (9.7-12.2) H 09/09/17 06:33 INR 1.2 09/09/17 06:33 APTT 36 SECONDS (21-34) H 09/09/17 06:33 - Constitutional Appears: No Acute Distress - Head Exam Head Exam: ATRAUMATIC, NORMAL INSPECTION, NORMOCEPHALIC - Eye Exam Eye Exam: EOMI, Normal appearance, PERRL Pupil Exam: NORMAL ACCOMODATION, PERRL - ENT Exam ENT Exam: Mucous Membranes Moist, Normal Exam - Respiratory Exam Respiratory Exam: Decreased Breath Sounds, Rales, Rhonchi - Cardiovascular Exam Cardiovascular Exam: REGULAR RHYTHM, +S1, +S2. absent: Murmur Assessment and Plan (1) Abdominal pain Status: Acute (2) Pleural effusion Status: Acute (3) Acute pancreatitis Status: Acute (4) Dehydration Status: Acute - Assessment and Plan (Free Text) Plan: continue current medications plan of care
[2017-09-17] MEDS: HYDROmorphone 0.5 mg/0.5 ml ISec IVP PRN ×6 (01:26→22:04)
[2017-09-17 07:57] LABS: TOTAL PROTEIN 5.1 g/dL (6.3-8.3)
[2017-09-17 08:05] LABS: GLUCOSE PLEURAL FLUID 93 mg/dL; LDH PLEURAL FLUID 288 U/L
[2017-09-17] MEDS: LIPASE/PROTEASE/AMYLASE 4,200 U ECC PO SCH ×3 (09:13→18:06)
[2017-09-17] MEDS: Enoxaparin 30 mg Syringe SC SCH (09:14)
[2017-09-17] MEDS: Potassium Chloride 20 mEq ER Tab PO SCH (09:14)
--- NOTE | 2017-09-17 13:25 | PN ---
DATE: LOCATION: [facility], bed A. SUBJECTIVE: This is a 56 years old female, seen and examined in rounds without significant clinical changes or reported active bleeding, but with period of shortness of breath. No hematemesis with poor oral intake. The patient is post thoracocentesis. Results still pending. The most recent lab results done yesterday showed low hemoglobin with low indices with electrolyte imbalance with low total protein level, but normal blood glucose of 102. Yesterday, chest x-ray official report is seen indicative of moderate residual of the right pleural effusion with marked improvement of the right side, but no pneumothorax reported. PHYSICAL EXAMINATION: GENERAL: A 56 years old female. VITAL SIGNS: Afebrile with pulse of 88, respiratory rate 20 to 22, blood pressure 102/66. HEENT: Showed pale dry oral mucoid membrane. Nonicteric sclerae. LUNGS: Few scattered crepitation. Decreased air entry at bases. HEART: Positive S1 and S2 with increased rate. ABDOMEN: Soft with slight distention. No mass or organomegaly. No rebound tenderness or guarding. EXTREMITIES: Without edema, clubbing or cyanosis. NEUROLOGIC: No reported new neurological deficits, sensory or motor. IMPRESSION: 1. Acute pancreatitis, gradually improving. 2. Bilateral pleural effusion with status post thoracocentesis, results still pending. 3. Severe anemia. To rule out lower gastrointestinal blood loss versus occult gastrointestinal malignancy. 4. Peptic ulcer disease by upper endoscopy. 5. Chronic obstructive pulmonary disease, anxiety and depression by history. SUGGESTION: 1. Agree with your plan. 2. The patient to be scheduled for colonoscopy after adequate preparation and if she is more stable clinically. 3. Further recommendation to follow post colonoscopy. Yin Patel MD
--- NOTE | 2017-09-17 14:20 | CP.PCM.PN ---
Subjective - Date & Time of Evaluation Date of Evaluation: 09/17/17 Time of Evaluation: 11:00 - Subjective Subjective: Cardiothoracic Surgery Note for Dr. Omer Patient seen and examined at bedside. No acute event overnight. Patient lying in bed comfortably in bed. She states that her breathing and abdominal pain are better today. Tolerating diet. Denies fever/chills, cough, SOB, nausea/vomiting , diarrhea. Objective - Vital Signs/Intake and Output Vital Signs (last 24 hours): Temp Pulse Resp BP Pulse Ox 99.3 F 87 18 118/66 94 L 09/17/17 13:56 09/17/17 13:56 09/17/17 13:56 09/17/17 13:56 09/17/17 08:39 Intake and Output: 09/17/17 09/17/17 06:59 18:59 Output Total 600 Balance -600 - Medications Medications: Current Medications Clonazepam (Klonopin) 1 mg PO BID [facility] Last Admin: 09/17/17 09:14 Dose: 1 mg Enoxaparin Sodium (Lovenox) 30 mg SC DAILY [facility] Last Admin: 09/17/17 09:14 Dose: Not Given Famotidine (Pepcid) 20 mg PO BID [facility] Last Admin: 09/17/17 09:13 Dose: 20 mg Hydromorphone HCl (Dilaudid) 0.5 mg IVP Q4 PRN PRN Reason: Pain, moderate (4-7) Last Admin: 09/17/17 13:53 Dose: 0.5 mg Metoclopramide HCl (Reglan) 5 mg IVP Q6 [facility] Last Admin: 09/17/17 12:11 Dose: 5 mg Potassium Chloride (K-Dur 20 Meq Er Tab) 40 meq PO DAILY [facility] Stop: 09/18/17 10:01 Last Admin: 09/17/17 09:14 Dose: 40 meq Trazodone HCl (Desyrel) 50 mg PO HS [facility] Last Admin: 09/16/17 21:20 Dose: 50 mg - Labs Labs: 09/16/17 16:43 09/16/17 16:43 PT 10.9 SECONDS (9.7-12.2) 09/17/17 13:52 INR 1.0 09/17/17 13:52 APTT 32 SECONDS (21-34) 09/17/17 13:52 - Constitutional Appears: No Acute Distress, Cachectic, Chronically Ill - Head Exam Head Exam: ATRAUMATIC, NORMOCEPHALIC - Eye Exam Eye Exam: Normal appearance - ENT Exam ENT Exam: Mucous Membranes Moist - Respiratory Exam Respiratory Exam: NORMAL BREATHING PATTERN - Cardiovascular Exam Cardiovascular Exam: REGULAR RHYTHM - GI/Abdominal Exam GI & Abdominal Exam: Soft. absent: Distended, Firm, Guarding, Rigid, Tenderness , Rebound - Neurological Exam Neurological Exam: Alert, Awake, Oriented x3 - Psychiatric Exam Psychiatric exam: Normal Affect, Normal Mood - Skin Skin Exam: Dry, Normal Color, Warm Assessment and Plan - Assessment and Plan (Free Text) Plan: 56 F with Right pleural effusion, s/p thoracentesis x 2 -Awaiting pleural fluid amylase result -Management as per primary -Will discuss with Dr. Kan Dawkins PGY1
--- NOTE | 2017-09-17 17:13 | CP.PCM.PN ---
Subjective - Date & Time of Evaluation Date of Evaluation: 09/17/17 Time of Evaluation: 13:30 - Subjective Subjective: Patient seen and examined Sitting comfortably in no distress but complaining of dyspnea on minimal exertion Denies cough, denies fever or chills Status post thoracentesis Objective - Vital Signs/Intake and Output Vital Signs (last 24 hours): Temp Pulse Resp BP Pulse Ox 98.5 F 101 H 20 99/66 L 97 09/17/17 15:05 09/17/17 15:05 09/17/17 15:05 09/17/17 15:05 09/17/17 15:05 Intake and Output: 09/17/17 09/17/17 06:59 18:59 Output Total 600 Balance -600 - Medications Medications: Current Medications Clonazepam (Klonopin) 1 mg PO BID [facility] Last Admin: 09/17/17 09:14 Dose: 1 mg Enoxaparin Sodium (Lovenox) 30 mg SC DAILY [facility] Last Admin: 09/17/17 09:14 Dose: Not Given Famotidine (Pepcid) 20 mg PO BID [facility] Last Admin: 09/17/17 09:13 Dose: 20 mg Hydromorphone HCl (Dilaudid) 0.5 mg IVP Q4 PRN PRN Reason: Pain, moderate (4-7) Last Admin: 09/17/17 13:53 Dose: 0.5 mg Metoclopramide HCl (Reglan) 5 mg IVP Q6 [facility] Last Admin: 09/17/17 12:11 Dose: 5 mg Potassium Chloride (K-Dur 20 Meq Er Tab) 40 meq PO DAILY [facility] Stop: 09/18/17 10:01 Last Admin: 09/17/17 09:14 Dose: 40 meq Trazodone HCl (Desyrel) 50 mg PO HS [facility] Last Admin: 09/16/17 21:20 Dose: 50 mg - Labs Labs: 09/16/17 16:43 09/16/17 16:43 PT 10.9 SECONDS (9.7-12.2) 09/17/17 13:52 INR 1.0 09/17/17 13:52 APTT 32 SECONDS (21-34) 09/17/17 13:52 - Head Exam Head Exam: ATRAUMATIC, NORMOCEPHALIC - ENT Exam ENT Exam: Mucous Membranes Moist - Neck Exam Neck Exam: Normal Inspection - Respiratory Exam Respiratory Exam: Decreased Breath Sounds - Cardiovascular Exam Cardiovascular Exam: REGULAR RHYTHM - GI/Abdominal Exam GI & Abdominal Exam: Soft, Normal Bowel Sounds - Extremities Exam Extremities Exam: Full ROM, Normal Inspection - Neurological Exam Neurological Exam: Alert, Oriented x3 Assessment and Plan (1) Pleural effusion Status: Acute (2) Hypercapnic respiratory failure Status: Acute
--- NOTE | 2017-09-17 23:06 | CP.PCM.PN ---
Subjective - Date & Time of Evaluation Date of Evaluation: 09/17/17 Time of Evaluation: 17:00 - Subjective Subjective: Patient seen and examined Sitting comfortably in no distress but complaining of dyspnea on minimal exertion Denies cough, denies fever or chills Status post thoracentesis Objective - Vital Signs/Intake and Output Vital Signs (last 24 hours): Temp Pulse Resp BP Pulse Ox 98.5 F 101 H 20 99/66 L 97 09/17/17 15:05 09/17/17 15:05 09/17/17 15:05 09/17/17 15:05 09/17/17 15:05 - Medications Medications: Current Medications Clonazepam (Klonopin) 1 mg PO BID [facility] Last Admin: 09/17/17 18:05 Dose: 1 mg Enoxaparin Sodium (Lovenox) 30 mg SC DAILY [facility] Last Admin: 09/17/17 09:14 Dose: Not Given Famotidine (Pepcid) 20 mg PO BID [facility] Last Admin: 09/17/17 18:05 Dose: 20 mg Hydromorphone HCl (Dilaudid) 0.5 mg IVP Q4 PRN PRN Reason: Pain, moderate (4-7) Last Admin: 09/17/17 22:04 Dose: 0.5 mg Metoclopramide HCl (Reglan) 5 mg IVP Q6 [facility] Last Admin: 09/17/17 18:05 Dose: 5 mg Potassium Chloride (K-Dur 20 Meq Er Tab) 40 meq PO DAILY [facility] Stop: 09/18/17 10:01 Last Admin: 09/17/17 09:14 Dose: 40 meq Trazodone HCl (Desyrel) 50 mg PO HS [facility] Last Admin: 09/17/17 22:03 Dose: 50 mg - Labs Labs: 09/16/17 16:43 09/16/17 16:43 PT 10.9 SECONDS (9.7-12.2) 09/17/17 13:52 INR 1.0 09/17/17 13:52 APTT 32 SECONDS (21-34) 09/17/17 13:52 Assessment and Plan (1) Abdominal pain Status: Acute (2) Pleural effusion Status: Acute (3) Acute pancreatitis Status: Acute (4) Dehydration Status: Acute
[2017-09-18] MEDS: HYDROmorphone 0.5 mg/0.5 ml ISec IVP PRN ×6 (02:04→22:17)
[2017-09-18 08:53] LABS: BASO # 0.1 K/uL (0.0-0.2); BASO % 0.8 % (0.0-2.0); EOS # 0.3 K/uL (0.0-0.7); EOS % 3.3 % (0.0-4.0); HEMATOCRIT 35.2 % (34.0-47.0); LYMPH # 2.4 K/uL (1.0-4.3); LYMPH % 25.1 % (20.0-40.0); MEAN CELL VOLUME 75.7 fL (81.0-99.0); MEAN CORPUSCULAR HEMOGLOBIN 23.1 pg (27.0-31.0); MEAN CORPUSCULAR HGB CONC 30.5 g/dL (33.0-37.0); MEAN PLATELET VOLUME 8.8 fL (7.2-11.7); MONO # 1.9 K/uL (0.0-0.8); MONO % 19.9 % (0.0-10.0); NRBC % 0.1 % (0.0-2.0); RED CELL DISTRIBUTION WIDTH 24.9 % (11.5-14.5); WHITE BLOOD COUNT 9.6 K/uL (4.8-10.8)
[2017-09-18 09:24] LABS: ALKALINE PHOSPHATASE 56 U/L (38-126); ALT/SGPT 35 U/L (9-52); AST/SGOT 32 U/L (14-36); BILIRUBIN,TOTAL 0.4 mg/dL (0.2-1.3); BLOOD UREA NITROGEN 16 mg/dL (7-17); CALCIUM 7.9 mg/dl (8.6-10.4); CARBON DIOXIDE 32 mmol/L (22-30); CHLORIDE 94 mmol/L (98-107); GFR AFRICAN-AMERICAN > 60; GLUCOSE,RANDOM 71 mg/dL (65-105); POTASSIUM 3.9 mmol/L (3.6-5.2); SODIUM 132 mmol/L (132-148); TOTAL PROTEIN 5.6 g/dL (6.3-8.3)
[2017-09-18 09:41] LABS: CA 19-9 < 1.4 U/mL (0-37)
[2017-09-18] MEDS: Enoxaparin 30 mg Syringe SC SCH ×2 (10:15→10:23)
[2017-09-18] MEDS: LIPASE/PROTEASE/AMYLASE 4,200 U ECC PO SCH ×3 (10:15→18:13)
[2017-09-18] MEDS: Potassium Chloride 20 mEq ER Tab PO SCH (10:15)
--- NOTE | 2017-09-18 10:55 | RAD ---
HISTORY: comparison COMPARISON: 09/16/2017 FINDINGS: LUNGS: Ill-defined opacity in right lower lobe may be due to infiltrate or dependent pleural fluid. No abnormal opacity elsewhere. PLEURA: Moderate right pleural effusion. No evidence of left pleural effusion. No significant change in extent of pleural effusion compared to prior examination. No pneumothorax. CARDIOVASCULAR: Normal. OSSEOUS STRUCTURES: No significant abnormalities. VISUALIZED UPPER ABDOMEN: Normal. OTHER FINDINGS: None. IMPRESSION: Right pleural effusion, grossly unchanged. Ill-defined opacity in right lower lobe common nonspecific. Possible pneumonia. Followup advised.
--- NOTE | 2017-09-18 13:51 | CP.PCM.PN ---
Subjective - Date & Time of Evaluation Date of Evaluation: 09/18/17 Time of Evaluation: 13:49 - Subjective Subjective: Surgery: Dr. Omer Pt seen and examined. No difficultly breathing overnight. Resting comfortably in bed. No complaints. Objective - Vital Signs/Intake and Output Vital Signs (last 24 hours): Temp Pulse Resp BP Pulse Ox 98.3 F 93 H 20 104/70 96 09/18/17 08:43 09/18/17 10:23 09/18/17 08:43 09/18/17 10:23 09/18/17 08:43 Intake and Output: 09/18/17 09/18/17 06:59 18:59 Intake Total 630 Output Total 800 Balance -170 - Medications Medications: Current Medications Clonazepam (Klonopin) 1 mg PO BID [facility] Last Admin: 09/18/17 10:15 Dose: 1 mg Enoxaparin Sodium (Lovenox) 30 mg SC DAILY [facility] Last Admin: 09/18/17 10:23 Dose: Not Given Famotidine (Pepcid) 20 mg PO BID [facility] Last Admin: 09/18/17 10:15 Dose: 20 mg Hydromorphone HCl (Dilaudid) 0.5 mg IVP Q4 PRN PRN Reason: Pain, moderate (4-7) Last Admin: 09/18/17 10:17 Dose: 0.5 mg Metoclopramide HCl (Reglan) 5 mg IVP Q6 [facility] Last Admin: 09/18/17 11:47 Dose: 5 mg Trazodone HCl (Desyrel) 50 mg PO HS [facility] Last Admin: 09/17/17 22:03 Dose: 50 mg - Labs Labs: 09/18/17 08:38 09/18/17 08:38 PT 10.9 SECONDS (9.7-12.2) 09/17/17 13:52 INR 1.0 09/17/17 13:52 APTT 32 SECONDS (21-34) 09/17/17 13:52 - Constitutional Appears: Non-toxic, No Acute Distress, Cachectic, Chronically Ill - Head Exam Head Exam: ATRAUMATIC, NORMOCEPHALIC - Eye Exam Eye Exam: EOMI - ENT Exam ENT Exam: Mucous Membranes Moist - Neck Exam Neck Exam: Full ROM - Respiratory Exam Respiratory Exam: NORMAL BREATHING PATTERN. absent: Accessory Muscle Use, Respiratory Distress - GI/Abdominal Exam GI & Abdominal Exam: Soft, Tenderness. absent: Distended, Firm, Guarding, Rigid - Extremities Exam Extremities Exam: absent: Calf Tenderness, Pedal Edema - Neurological Exam Neurological Exam: Alert, Awake, Oriented x3 - Psychiatric Exam Psychiatric exam: Normal Affect, Normal Mood Assessment and Plan - Assessment and Plan (Free Text) Assessment: 56 F with Right pleural effusion, s/p thoracentesis x 2 -AM CXR, grossly unchaned -Awaiting pleural fluid amylase results, further recs pending results -Will discuss with Dr. Kan Arrieta PGY3
--- NOTE | 2017-09-18 15:18 | CP.PCM.PN ---
Subjective - Date & Time of Evaluation Date of Evaluation: 09/18/17 Time of Evaluation: 11:30 - Subjective Subjective: patient seen and examined. lying comfortably in no acute distress Complaining of dyspnea on exertion Awaiting for pleural fluid analysis Status post thoracentesis x2 Afebrile Some epigastric discomfort Objective - Vital Signs/Intake and Output Vital Signs (last 24 hours): Temp Pulse Resp BP Pulse Ox 98.3 F 93 H 20 104/70 96 09/18/17 08:43 09/18/17 10:23 09/18/17 08:43 09/18/17 10:23 09/18/17 08:43 Intake and Output: 09/18/17 09/18/17 06:59 18:59 Intake Total 630 480 Output Total 800 Balance -170 480 - Medications Medications: Current Medications Clonazepam (Klonopin) 1 mg PO BID [facility] Last Admin: 09/18/17 10:15 Dose: 1 mg Enoxaparin Sodium (Lovenox) 30 mg SC DAILY [facility] Last Admin: 09/18/17 10:23 Dose: Not Given Famotidine (Pepcid) 20 mg PO BID [facility] Last Admin: 09/18/17 10:15 Dose: 20 mg Hydromorphone HCl (Dilaudid) 0.5 mg IVP Q4 PRN PRN Reason: Pain, moderate (4-7) Last Admin: 09/18/17 14:15 Dose: 0.5 mg Metoclopramide HCl (Reglan) 5 mg IVP Q6 [facility] Last Admin: 09/18/17 11:47 Dose: 5 mg Trazodone HCl (Desyrel) 50 mg PO HS [facility] Last Admin: 09/17/17 22:03 Dose: 50 mg - Labs Labs: 09/18/17 08:38 09/18/17 08:38 PT 10.9 SECONDS (9.7-12.2) 09/17/17 13:52 INR 1.0 09/17/17 13:52 APTT 32 SECONDS (21-34) 09/17/17 13:52 - Head Exam Head Exam: ATRAUMATIC, NORMOCEPHALIC - Eye Exam Eye Exam: Normal appearance - ENT Exam ENT Exam: Mucous Membranes Moist - Neck Exam Neck Exam: Normal Inspection - Respiratory Exam Respiratory Exam: Decreased Breath Sounds - GI/Abdominal Exam GI & Abdominal Exam: Soft, Normal Bowel Sounds Assessment and Plan (1) Pleural effusion Status: Acute (2) Hypercapnic respiratory failure Status: Acute
[2017-09-18] MEDS ORDERED: Piperacillin/Tazobact 3.375 gm 100 ML IVPB SCH (16:15)
[2017-09-18] MEDS: Piperacill/Tazo 3.375gm in Dex 3.375 GM/50 ML BAG IVPB SCH (18:30)
--- NOTE | 2017-09-18 19:33 | PN ---
LOCATION: [facility], bed A. SUBJECTIVE: This is a 56-year-old female, seen and examined in rounds today without significant clinical changes or reported active bleeding with adequate oral intake. The patient experienced slight shortness of breath on and off, but no acute distress with a complaint dyspnea only on exertion, she is status post thoracocentesis x2 and results of the pleural effusion analysis is still pending. The patient is still have mid epigastric as well as mid line abdominal discomfort. Most recent chest x-ray done today showed right pleural effusion grossly unchanged to ill-defined opacity in the right lower lobe with possible pneumonia. The entire chart is reviewed including, but not limited to the most recent lab and radiology study results, current and the previous medication list, current and the previous medical events. LABORATORY DATA: Today's lab showed low hemoglobin of 10.7 with normal hematocrit with low indices highly suggestive for hypochromic microcytic anemia with increased CO2 content of 32 indicative of respiratory alkalosis with low calcium at 7.9, low albumin 2.8, low total protein 5.6. PHYSICAL EXAMINATION: GENERAL: A 56 years old female, awake, alert, and oriented. VITAL SIGNS: Afebrile with pulse of 90, respiratory rate 20 to 22 with blood pressure of 110/72. HEENT: Showed pale dry oral mucoid membrane. Nonicteric sclerae. LUNGS: Few scattered crepitation. Decreased air entry at bases. HEART: Positive S1 and S2 with increased rate. ABDOMEN: Soft. Bowel sounds are present with slight generalized tenderness at midepigastric and mid abdominal line including the left lower quadrant area. No mass or organomegaly. No rebound tenderness or guarding. EXTREMITIES: With slight lower extremity edematous changes. No clubbing or cyanosis NEUROLOGIC: No new reported focal neurological deficits, sensory or motor. IMPRESSION: 1. Acute pancreatitis, gradually improved. 2. Anemia. To rule out lower GI tract, source of blood loss versus occult malignancy. 3. Reexacerbation of peptic ulcer disease. 4. Bilateral pleural effusion with status post thoracocentesis with possible pneumonia versus questionable mass lesion. 5. Known history of chronic obstructive pulmonary disease, depression and severe anxiety syndrome. SUGGESTION: 1. Agree with your plan. 2. The patient may need again colonoscopy only when she is more stable clinically. 3. Case discussed with Dr. Baker and Dr. Patel. Yin Patel MD cc: Yin Patel MD [facility] # [id number]
--- NOTE | 2017-09-18 22:40 | CP.PCM.PN ---
Subjective - Date & Time of Evaluation Date of Evaluation: 09/18/17 Time of Evaluation: 17:45 - Subjective Subjective: Pt seen and examined, is less short of breath, she has recurrent pleural effusion, decreased abdominal pain, c/o nausea but denies any vomitting Objective - Vital Signs/Intake and Output Vital Signs (last 24 hours): Temp Pulse Resp BP Pulse Ox 98.7 F 89 18 95/60 L 97 09/18/17 15:15 09/18/17 15:15 09/18/17 15:15 09/18/17 15:15 09/18/17 15:15 Intake and Output: 09/18/17 09/19/17 18:59 06:59 Intake Total 480 Balance 480 - Medications Medications: Current Medications Clonazepam (Klonopin) 1 mg PO BID [facility] Last Admin: 09/18/17 18:13 Dose: 1 mg Enoxaparin Sodium (Lovenox) 30 mg SC DAILY [facility] Last Admin: 09/18/17 10:23 Dose: Not Given Famotidine (Pepcid) 20 mg PO BID [facility] Last Admin: 09/18/17 18:13 Dose: 20 mg Hydromorphone HCl (Dilaudid) 0.5 mg IVP Q4 PRN PRN Reason: Pain, moderate (4-7) Last Admin: 09/18/17 22:17 Dose: 0.5 mg Piperacillin Sod/Tazobactam Sod (Zosyn 3.375 Gm Iv Premix) 3.375 gm in 50 mls @ 100 mls/hr IVPB Q8H [facility] Last Admin: 09/18/17 18:30 Dose: 100 mls/hr Metoclopramide HCl (Reglan) 5 mg IVP Q6 [facility] Last Admin: 09/18/17 18:13 Dose: 5 mg Trazodone HCl (Desyrel) 50 mg PO HS [facility] Last Admin: 09/18/17 22:17 Dose: 50 mg - Labs Labs: 09/18/17 08:38 09/18/17 08:38 PT 10.9 SECONDS (9.7-12.2) 09/17/17 13:52 INR 1.0 09/17/17 13:52 APTT 32 SECONDS (21-34) 09/17/17 13:52 - Constitutional Appears: No Acute Distress - Head Exam Head Exam: ATRAUMATIC, NORMAL INSPECTION, NORMOCEPHALIC - Eye Exam Eye Exam: EOMI, Normal appearance, PERRL Pupil Exam: NORMAL ACCOMODATION, PERRL - Respiratory Exam Respiratory Exam: Decreased Breath Sounds, NORMAL BREATHING PATTERN - Cardiovascular Exam Cardiovascular Exam: REGULAR RHYTHM, +S1, +S2. absent: Murmur - GI/Abdominal Exam GI & Abdominal Exam: Soft, Normal Bowel Sounds. absent: Tenderness - Back Exam Back Exam: NORMAL INSPECTION - Neurological Exam Neurological Exam: Alert, Awake, CN II-XII Intact, Normal Gait, Oriented x3 Assessment and Plan (1) Abdominal pain Status: Acute (2) Pleural effusion Status: Acute (3) Acute pancreatitis Status: Acute (4) Dehydration Status: Acute (5) Malnutrition Status: Acute
[2017-09-19] MEDS: Piperacill/Tazo 3.375gm in Dex 3.375 GM/50 ML BAG IVPB SCH ×2 (02:25→09:33)
[2017-09-19] MEDS: HYDROmorphone 0.5 mg/0.5 ml ISec IVP PRN ×3 (02:26→12:20)
[2017-09-19 08:09] VITALS: BP 117/65; PULSE 92; RESP 17; TEMP 98.8; O2SAT 95
[2017-09-19] MEDS ORDERED: HYDROmorphone 0.5 mg/0.5 ml ISec IVP STA (08:29)
[2017-09-19] MEDS: LIPASE/PROTEASE/AMYLASE 4,200 U ECC PO SCH ×2 (08:46→14:30)
[2017-09-19] MEDS: Enoxaparin 30 mg Syringe SC SCH (09:32)
[2017-09-19] MEDS: Albuterol-Ipratrop 3 mg / 0.5 (3 ml) UD INH SCH ×2 (11:00→13:44)
--- NOTE | 2017-09-19 12:28 | CP.PCM.PN ---
Subjective - Date & Time of Evaluation Date of Evaluation: 09/19/17 Time of Evaluation: 11:10 - Subjective Subjective: Patient seen and examined at bed side, awake, alert, ox3, denies s any chest pain, N/V/D, tolerating diet ,c/o dyspnea on exertion, and pain improved with pain medication No overnight events reported by RN Objective - Vital Signs/Intake and Output Vital Signs (last 24 hours): Temp Pulse Resp BP Pulse Ox 98.8 F 92 H 17 117/65 95 09/19/17 07:20 09/19/17 07:20 09/19/17 07:20 09/19/17 07:20 09/19/17 07:20 Intake and Output: 09/19/17 09/19/17 06:59 18:59 Intake Total 530 Balance 530 - Medications Medications: Current Medications Albuterol/Ipratropium (Duoneb 3 Mg/0.5 Mg (3 Ml) Ud) 3 ml INH RQ6 [facility] Clonazepam (Klonopin) 1 mg PO BID [facility] Last Admin: 09/19/17 09:31 Dose: 1 mg Enoxaparin Sodium (Lovenox) 30 mg SC DAILY [facility] Last Admin: 09/19/17 09:32 Dose: Not Given Famotidine (Pepcid) 20 mg PO BID [facility] Last Admin: 09/19/17 09:31 Dose: 20 mg Hydromorphone HCl (Dilaudid) 0.5 mg IVP Q4 PRN PRN Reason: Pain, moderate (4-7) Last Admin: 09/19/17 12:20 Dose: 0.5 mg Piperacillin Sod/Tazobactam Sod (Zosyn 3.375 Gm Iv Premix) 3.375 gm in 50 mls @ 100 mls/hr IVPB Q8H [facility] Last Admin: 09/19/17 09:33 Dose: 100 mls/hr Metoclopramide HCl (Reglan) 5 mg IVP Q6 [facility] Last Admin: 09/19/17 11:49 Dose: 5 mg Trazodone HCl (Desyrel) 50 mg PO HS [facility] Last Admin: 09/18/17 22:17 Dose: 50 mg - Labs Labs: 09/18/17 08:38 09/18/17 08:38 PT 10.9 SECONDS (9.7-12.2) 09/17/17 13:52 INR 1.0 09/17/17 13:52 APTT 32 SECONDS (21-34) 09/17/17 13:52 - Constitutional Appears: No Acute Distress, Cachectic, Chronically Ill - Respiratory Exam Respiratory Exam: Decreased Breath Sounds, NORMAL BREATHING PATTERN (tachypnic) - Cardiovascular Exam Cardiovascular Exam: REGULAR RHYTHM, +S1, +S2 - Neurological Exam Neurological Exam: Alert, Awake, Oriented x3 Assessment and Plan - Assessment and Plan (Free Text) Assessment: A/P 56 yr old female with acute pancrititis / SOB / and large r side pleural effusion s/p thoracentesis x 2 pending- cytology report repeat cxr- Right pleural effusion, grossly unchanged. Ill-defined opacity in right lower lobe common nonspecific. Possible pneumonia seen by Dr. Lucero today , stable for discharge home today and f/u cxr in 1 week D/W Dr. Baker, stable for discharge home today and f/u with Dr. Baker office in 1 week Oxygen arranged by Dr. Baker and available at bed brady e and at home upon discharge Patient instructed to come to [facility] outpt dept. on friday for f/u CXR
--- NOTE | 2017-09-19 14:24 | CP.PCM.PN ---
Subjective - Date & Time of Evaluation Date of Evaluation: 09/19/17 Time of Evaluation: 09:30 - Subjective Subjective: patient seen and examined. No change in patient condition Dyspnea on exertion Afebrile Pleural fluid showed elevated amylase and lipase Denies cough, denies fever Objective - Vital Signs/Intake and Output Vital Signs (last 24 hours): Temp Pulse Resp BP Pulse Ox 98.8 F 92 H 17 117/65 95 09/19/17 07:20 09/19/17 07:20 09/19/17 07:20 09/19/17 07:20 09/19/17 07:20 Intake and Output: 09/19/17 09/19/17 06:59 18:59 Intake Total 530 Balance 530 - Medications Medications: Current Medications Albuterol/Ipratropium (Duoneb 3 Mg/0.5 Mg (3 Ml) Ud) 3 ml INH RQ6 [facility] Last Admin: 09/19/17 13:44 Dose: 3 ml Clonazepam (Klonopin) 1 mg PO BID [facility] Last Admin: 09/19/17 09:31 Dose: 1 mg Enoxaparin Sodium (Lovenox) 30 mg SC DAILY [facility] Last Admin: 09/19/17 09:32 Dose: Not Given Famotidine (Pepcid) 20 mg PO BID [facility] Last Admin: 09/19/17 09:31 Dose: 20 mg Hydromorphone HCl (Dilaudid) 0.5 mg IVP Q4 PRN PRN Reason: Pain, moderate (4-7) Last Admin: 09/19/17 12:20 Dose: 0.5 mg Piperacillin Sod/Tazobactam Sod (Zosyn 3.375 Gm Iv Premix) 3.375 gm in 50 mls @ 100 mls/hr IVPB Q8H [facility] Last Admin: 09/19/17 09:33 Dose: 100 mls/hr Metoclopramide HCl (Reglan) 5 mg IVP Q6 [facility] Last Admin: 09/19/17 11:49 Dose: 5 mg Trazodone HCl (Desyrel) 50 mg PO HS [facility] Last Admin: 09/18/17 22:17 Dose: 50 mg - Labs Labs: 09/18/17 08:38 09/18/17 08:38 PT 10.9 SECONDS (9.7-12.2) 09/17/17 13:52 INR 1.0 09/17/17 13:52 APTT 32 SECONDS (21-34) 09/17/17 13:52 - Head Exam Head Exam: NORMOCEPHALIC - ENT Exam ENT Exam: Mucous Membranes Moist - Respiratory Exam Respiratory Exam: Decreased Breath Sounds - Cardiovascular Exam Cardiovascular Exam: REGULAR RHYTHM - GI/Abdominal Exam GI & Abdominal Exam: Soft, Normal Bowel Sounds - Extremities Exam Extremities Exam: Full ROM, Normal Inspection Assessment and Plan (1) Pleural effusion Assessment & Plan: recurrent left-sided blood tinged pleural effusion most likely secondary to chronic pancreatitis consider Retrograde Chol[place]io Pancreaticography Consider octreotide if there is recurrence of pleural effusion Status: Acute (2) Hypercapnic respiratory failure Status: Acute
--- NOTE | 2017-09-19 15:04 | CP.PCM.PN ---
Subjective - Date & Time of Evaluation Date of Evaluation: 09/19/17 Time of Evaluation: 15:02 - Subjective Subjective: cxr-Right pleural effusion unchanged. Awaiting pleural amylase. Objective - Vital Signs/Intake and Output Vital Signs (last 24 hours): Temp Pulse Resp BP Pulse Ox 98.8 F 92 H 17 117/65 95 09/19/17 07:20 09/19/17 07:20 09/19/17 07:20 09/19/17 07:20 09/19/17 07:20 Intake and Output: 09/19/17 09/19/17 06:59 18:59 Intake Total 530 Balance 530 - Medications Medications: Current Medications Albuterol/Ipratropium (Duoneb 3 Mg/0.5 Mg (3 Ml) Ud) 3 ml INH RQ6 [facility] Last Admin: 09/19/17 13:44 Dose: 3 ml Clonazepam (Klonopin) 1 mg PO BID [facility] Last Admin: 09/19/17 09:31 Dose: 1 mg Enoxaparin Sodium (Lovenox) 30 mg SC DAILY [facility] Last Admin: 09/19/17 09:32 Dose: Not Given Famotidine (Pepcid) 20 mg PO BID [facility] Last Admin: 09/19/17 09:31 Dose: 20 mg Hydromorphone HCl (Dilaudid) 0.5 mg IVP Q4 PRN PRN Reason: Pain, moderate (4-7) Last Admin: 09/19/17 12:20 Dose: 0.5 mg Piperacillin Sod/Tazobactam Sod (Zosyn 3.375 Gm Iv Premix) 3.375 gm in 50 mls @ 100 mls/hr IVPB Q8H [facility] Last Admin: 09/19/17 09:33 Dose: 100 mls/hr Metoclopramide HCl (Reglan) 5 mg IVP Q6 [facility] Last Admin: 09/19/17 11:49 Dose: 5 mg Trazodone HCl (Desyrel) 50 mg PO HS [facility] Last Admin: 09/18/17 22:17 Dose: 50 mg - Labs Labs: 09/18/17 08:38 09/18/17 08:38 PT 10.9 SECONDS (9.7-12.2) 09/17/17 13:52 INR 1.0 09/17/17 13:52 APTT 32 SECONDS (21-34) 09/17/17 13:52
--- NOTE | 2017-09-19 19:37 | PN ---
LOCATION: [facility], bed A. SUBJECTIVE: This is 56-year-old female seen and examined early in rounds today without reported significant changes or active bleeding with less oral intake and the intermittent period of shortness of breath, with pleural effusion especially the right side is unchanged. Case discussed at length with the medical staff in the floor as well as the pulmonary security consultant on the case and the patient is still have intermittent period of dyspnea on exertion, but no active bleeding. The entire chart is reviewed including, but not limited to the most recent lab and radiology study results, current and the previous medication list, current and the previous medical events as well as all the pleural fluids results and analysis. PHYSICAL EXAMINATION: GENERAL: A 56-year-old female appear to be awake, alert, oriented, just complaining of generalized weakness. VITAL SIGNS: Afebrile with pulse of 90, respiratory rate 20 to 22 and blood pressure 110/68. HEENT: Showed pale, dry oral mucoid membrane. Nonicteric sclerae. LUNGS: Few scattered crepitation. Decreased air entry at bases. HEART: Positive S1 and S2 with increased rate. ABDOMEN: Soft. Bowel sounds are present with mild generalized tenderness. No masses or organomegaly. No rebound tenderness or guarding. EXTREMITIES: With evidence of mild muscle wasting syndrome. No clubbing or cyanosis. NEUROLOGIC: No reported new neurological deficits, sensory or motor. IMPRESSION: 1. Acute pancreatitis, gradually but slowly improving that could be a major reason for the patient's pleural effusion also. 2. Bilateral pleural effusion with status post thoracocentesis with pneumonia. 3. Known history of chronic obstructive pulmonary disease, severe anxiety syndrome with depression. 4. Peptic ulcer disease by recent history. 5. Anemia secondary to above. 6. Excessive body weight loss of unclear etiology. SUGGESTION: 1. Agree with your plan. 2. The patient will need colonoscopy due to the excessive body weight loss. 3. Creon 24,000 units p.o. three times a day with meals. 4. Recommendation to follow. Yin Patel MD cc: Yin Patel MD
--- NOTE | 2017-09-19 23:27 | CP.PCM.DIS ---
Provider - Provider Date of Admission: 09/09/17 08:07 Attending physician: Connor Baker MD Diagnosis - Discharge Diagnosis (1) Abdominal pain Status: Acute (2) Pleural effusion Status: Acute (3) Acute pancreatitis Status: Acute (4) Dehydration Status: Acute Hospital Course - Lab Results Lab Results: Micro Results 09/15/17 14:07 Pleural Fluid Gram Stain - Final 09/15/17 14:07 Pleural Fluid Body Fluid Culture - Final No growth. 09/10/17 10:16 Other: Please Indicate Mycobacterial Culture - Preliminary 09/15/17 14:36 Pleural Fluid Fungal Culture - Preliminary 09/15/17 14:36 Pleural Fluid Anaerobic Culture - Final NO ANAEROBES ISOLATED. 09/15/17 14:10 Other: Please Indicate Mycobacterial Culture - Preliminary 09/10/17 16:52 Pleural Fluid Gram Stain - Final 09/10/17 16:52 Pleural Fluid Body Fluid Culture - Final No growth. Most Recent Lab Values WBC 9.6 K/uL (4.8-10.8) 09/18/17 08:38 RBC 4.64 Mil/uL (3.80-5.20) 09/18/17 08:38 Hgb 10.7 g/dL (11.0-16.0) L 09/18/17 08:38 Hct 35.2 % (34.0-47.0) 09/18/17 08:38 MCV 75.7 fL (81.0-99.0) L 09/18/17 08:38 MCH 23.1 pg (27.0-31.0) L 09/18/17 08:38 MCHC 30.5 g/dL (33.0-37.0) L 09/18/17 08:38 RDW 24.9 % (11.5-14.5) H 09/18/17 08:38 Plt Count 287 K/uL (130-400) 09/18/17 08:38 MPV 8.8 fL (7.2-11.7) 09/18/17 08:38 Neut % (Auto) 50.9 % (50.0-75.0) 09/18/17 08:38 Lymph % (Auto) 25.1 % (20.0-40.0) 09/18/17 08:38 [place] % (Auto) 19.9 % (0.0-10.0) H 09/18/17 08:38 Eos % (Auto) 3.3 % (0.0-4.0) 09/18/17 08:38 Baso % (Auto) 0.8 % (0.0-2.0) 09/18/17 08:38 Neut # 4.9 K/uL (1.8-7.0) 09/18/17 08:38 Lymph # 2.4 K/uL (1.0-4.3) 09/18/17 08:38 [place] # 1.9 K/uL (0.0-0.8) H 09/18/17 08:38 Eos # 0.3 K/uL (0.0-0.7) 09/18/17 08:38 Baso # 0.1 K/uL (0.0-0.2) 09/18/17 08:38 Differential Comment 09/10/17 07:56 PT 10.9 SECONDS (9.7-12.2) 09/17/17 13:52 INR 1.0 09/17/17 13:52 APTT 32 SECONDS (21-34) 09/17/17 13:52 Puncture Site Line 09/11/17 14:56 pCO2 51 mm/Hg (35-45) H 09/10/17 09:28 pO2 49 mm/Hg (30-55) 09/11/17 14:56 HCO3 30.3 mmol/L (21-28) H 09/10/17 09:28 ABG pH 7.41 (7.35-7.45) 09/10/17 09:28 ABG Total CO2 33.9 mmol/L (22-28) H 09/10/17 09:28 ABG O2 Saturation 99.7 % (95-98) H 09/10/17 09:28 ABG Base Excess 6.9 mmol/L (-2.0-3.0) H 09/10/17 09:28 ABG Hemoglobin 7.3 g/dL (11.7-17.4) L 09/10/17 09:28 ABG Carboxyhemoglobin 2.4 % (0.5-1.5) H 09/10/17 09:28 POC ABG HHb (Measured) 0.3 % (0.0-5.0) 09/10/17 09:28 ABG Methemoglobin 1.5 % (0.0-3.0) 09/10/17 09:28 Eric Test Na 09/11/17 14:56 ABG Potassium 3.5 mmol/L (3.6-5.2) L 09/09/17 15:25 VBG pH 7.38 (7.32-7.43) 09/11/17 14:56 VBG pCO2 57 mmHg (40-60) 09/11/17 14:56 VBG HCO3 29.9 mmol/L 09/11/17 14:56 VBG O2 Sat (Calc) 90.2 % (40-65) H 09/11/17 14:56 VBG Base Excess 6.8 mmol/L (0.0-2.0) H 09/11/17 14:56 A-a O2 Difference 52.0 mm/Hg 09/10/17 09:28 Respiratory Index 0.5 09/10/17 09:28 Hgb O2 Saturation 95.8 % (95.0-98.0) 09/10/17 09:28 Sodium 136.0 mmol/l (132-148) 09/09/17 15:25 Chloride 107.0 mmol/L (98-107) 09/09/17 15:25 Glucose 90 mg/dl (65-105) 09/09/17 15:25 Lactate 0.4 mmol/L (0.7-2.1) L 09/09/17 15:25 Liter Flow 3.0 09/10/17 09:28 FiO2 30.0 % 09/10/17 09:28 Crit Value Called To Julianne horticultural worker 09/09/17 15:25 Crit Value Called By Ryan 09/09/17 15:25 Crit Value Read Back Y 09/09/17 15:25 Blood Gas Notified Time 1529 09/09/17 15:25 Sodium 132 mmol/L (132-148) 09/18/17 08:38 Potassium 3.9 mmol/L (3.6-5.2) 09/18/17 08:38 Chloride 94 mmol/L (98-107) L 09/18/17 08:38 Carbon Dioxide 32 mmol/L (22-30) H 09/18/17 08:38 Anion Gap 10 (10-20) 09/18/17 08:38 BUN 16 mg/dL (7-17) 09/18/17 08:38 Creatinine 0.5 mg/dL (0.7-1.2) L 09/18/17 08:38 Est GFR ( Amer) > 60 09/18/17 08:38 Est GFR (Non-Af Amer) > 60 09/18/17 08:38 POC Glucose (mg/dL) 102 mg/dL (65-110) 09/17/17 06:33 Random Glucose 71 mg/dL (65-105) 09/18/17 08:38 Calcium 7.9 mg/dl (8.6-10.4) L 09/18/17 08:38 Phosphorus 2.9 mg/dL (2.5-4.5) 09/13/17 07:15 Magnesium 1.7 mg/dL (1.6-2.3) 09/13/17 07:15 Iron 14 ug/dL (37-170) L 09/10/17 11:39 TIBC 300 ug/dL (250-450) 09/10/17 11:39 % Saturation 5 (20-55) L 09/10/17 11:39 Total Bilirubin 0.4 mg/dL (0.2-1.3) 09/18/17 08:38 AST 32 U/L (14-36) 09/18/17 08:38 ALT 35 U/L (9-52) 09/18/17 08:38 Alkaline Phosphatase 56 U/L (38-126) 09/18/17 08:38 Lactate Dehydrogenase 474 U/L (313-618) 09/17/17 07:26 Troponin I < 0.0120 ng/mL (0.00-0.120) 09/09/17 06:33 NT-Pro-B Natriuret Pep 213 pg/mL (0-900) 09/09/17 06:33 Total Protein 5.6 g/dL (6.3-8.3) L 09/18/17 08:38 Albumin 2.8 g/dL (3.5-5.0) L D 09/18/17 08:38 Globulin 2.8 gm/dL (2.2-3.9) 09/18/17 08:38 Albumin/Globulin Ratio 1.0 (1.0-2.1) 09/18/17 08:38 Amylase 212 U/L (30-110) H 09/11/17 08:20 Lipase 538 U/L (23-300) H 09/12/17 07:41 CA 19-9 Antigen < 1.4 U/mL (0-37) 09/18/17 08:38 Arterial Blood Potassium 3.5 mmol/L (3.6-5.2) L 09/09/17 15:25 Urine Color Yellow (YELLOW) 09/09/17 06:51 Urine Clarity Clear (Clear) 09/09/17 06:51 Urine pH 6.0 (5.0-8.0) 09/09/17 06:51 Ur Specific [place] 1.008 (1.003-1.030) 09/09/17 06:51 Urine Protein Negative mg/dL (NEGATIVE) 09/09/17 06:51 Urine Glucose (UA) Normal mg/dL (Normal) 09/09/17 06:51 Urine Ketones Negative mg/dL (NEGATIVE) 09/09/17 06:51 Urine Blood Negative (NEGATIVE) 09/09/17 06:51 Urine Nitrate Negative (NEGATIVE) 09/09/17 06:51 Urine Bilirubin Negative (NEGATIVE) 09/09/17 06:51 Urine Urobilinogen Normal mg/dL (0.2-1.0) 09/09/17 06:51 Ur Leukocyte Esterase 2+ Nimesh/uL (Negative) H 09/09/17 06:51 Urine WBC (Auto) 12 /hpf (0-5) H 09/09/17 06:51 Urine RBC (Auto) 1 /hpf (0-3) 09/09/17 06:51 Ur Squamous Epith Cells 1 /hpf (0-5) 09/09/17 06:51 Urine Bacteria Rare (<OCC) 09/09/17 06:51 Urine HCG, Qual Negative (NEGATIVE) 09/09/17 06:51 Fluid Source Pleural/thoracentesi 09/15/17 14:52 Fluid Appearance Cloudy (CLEAR) 09/15/17 14:52 Fluid pH 9.0 09/15/17 14:52 Fluid WBC 2083.0 /mm3 (0.0-300.0) H 09/15/17 14:52 Fluid RBC 30415.0 /mm3 (0.0-0.0) H 09/15/17 14:52 Fluid Tot Cell Count TEST NOT PERFORMED 09/15/17 14:52 Fluid Neutrophils 83.0 % (0-0) H 09/15/17 14:52 Fluid Lymphocytes 3.0 % (0-0) H 09/15/17 14:52 Fld Monocyte/Macrophag 5 % (0-0) H 09/15/17 14:52 Fluid Diff Path Review 09/10/17 16:30 Fluid Comment 09/15/17 14:52 Pleural Total Protein <3.0 g/dL 09/09/17 16:22 Pleural LDH 288 U/L 09/15/17 14:52 Pleural Glucose 93 mg/dL 09/15/17 14:52 Pleural Amylase 758 U/L 09/15/17 14:56 Pleural Lipase 1476 U/L (<10) H 09/15/17 15:04 Pleural Cholesterol 48 mg/dL 09/15/17 14:52 Pleural Triglycerides 20 mg/dL 09/15/17 14:52 Stool Occult Blood Positive (NEGATIVE) H 09/12/17 16:20 Urine Opiates Screen Positive (NEGATIVE) 09/09/17 06:53 Urine Methadone Screen Negative (NEGATIVE) 09/09/17 06:53 Ur Barbiturates Screen Negative (NEGATIVE) 09/09/17 06:53 Ur Phencyclidine Scrn Negative (NEGATIVE) 09/09/17 06:53 Ur Amphetamines Screen Negative (NEGATIVE) 09/09/17 06:53 U Benzodiazepines Scrn Negative (NEGATIVE) 09/09/17 06:53 U Oth Cocaine Metabols Negative (NEGATIVE) 09/09/17 06:53 U Cannabinoids Screen Negative (NEGATIVE) 09/09/17 06:53 Blood Type A POSITIVE 09/10/17 11:39 Antibody Screen Negative 09/10/17 11:39 Discharge Exam - Head Exam Head Exam: NORMOCEPHALIC Discharge Plan - Discharge Medications Prescriptions: Albuterol/Ipratropium [Duoneb 3 MG/3 Ml-0.5 MG/3 Ml 3 Ml] 1 ea IH Q6 30 Days neb Potassium Chloride [K-Dur 20 mEq ER Tab] 20 meq PO DAILY #30 tab Clonazepam [Klonopin] 1 mg PO BID #60 tablet Famotidine [Pepcid] 20 mg PO BID #60 tab Acetaminophen with Codeine [Tylenol with Codeine #4 Tablet] 1 each PO Q4 PRN # 60 tablet PRN Reason: Pain, Moderate (4-7) Albuterol HFA [Ventolin HFA 90 mcg/actuation (8 g)] 1 puff INH PRN PRN #2 inhaler PRN Reason: Shortness Of Breath Khloe Ames 15,000 Units Capsule 1 tab PO TIDPC #90 - Follow Up Plan Condition: STABLE Disposition: HOME/ ROUTINE Instructions: Famotidine (By mouth), Acetaminophen/Codeine (By mouth), Clonazepam (By mouth), Albuterol (By breathing), Potassium Chloride (By mouth), Pancrelipase (By mouth), Ipratropium/Albuterol (By breathing), Thoracentesis (DC ), Gastritis (DC), Low Fat Diet (DC), Diet for Ulcers and Gastritis (GEN), Pleural Effusion (DC), Upper Endoscopy (DC), Acute Abdominal Pain (DC) Additional Instructions: PLEASE F/U WITH DR. BAKER OFFICE ON Fri PLEASE COME TO [facility] TO DO CXR ON FRIDAY CONTINUE OXYGEN VIA NASAL CANULA TO KEEP SPO2 >94 % F/U WITH PAIN MANAGEMENT CONTINUE MEDICATION PER MED. REC Referrals: Connor Baker MD [Staff Provider] -
== END 2017-09-19 15:00 | disposition home or self-care (01) | DRG 438 ==
LOC: C.ER 05:58 → C.9E 08:07 → C.5S 08:59 → C.6T 09-13 13:16
PROVIDERS: ADMIT Internal Medicine; ATTEND Internal Medicine
PROC: 30233N1 Transfusion of Nonautologous Red Blood Cells into Peripheral Vein, Percutaneous Approach (ICD-10-PCS; 2017-09-10)
PROC: 0DB88ZX Excision of Small Intestine, Via Natural or Artificial Opening Endoscopic, Diagnostic (ICD-10-PCS; 2017-09-11)
PROC: 5A09557 Assistance with Respiratory Ventilation, Greater than 96 Consecutive Hours, Continuous Positive Airway Pressure (ICD-10-PCS; principal; 2017-09-13)
PROC: 0W993ZX Drainage of Right Pleural Cavity, Percutaneous Approach, Diagnostic (ICD-10-PCS; 2017-09-15)
DX: K85.90 Acute pancreatitis without necrosis or infection, unspecified (principal); J96.92 Respiratory failure, unspecified with hypercapnia; J91.8 Pleural effusion in other conditions classified elsewhere; J18.9 Pneumonia, unspecified organism; E46 Unspecified protein-calorie malnutrition; K75.9 Inflammatory liver disease, unspecified; K27.3 Acute peptic ulcer, site unspecified, without hemorrhage or perforation; J44.0 Chronic obstructive pulmonary disease with (acute) lower respiratory infection; F17.210 Nicotine dependence, cigarettes, uncomplicated; D50.0 Iron deficiency anemia secondary to blood loss (chronic); K86.1 Other chronic pancreatitis; E86.0 Dehydration; F41.9 Anxiety disorder, unspecified; K44.9 Diaphragmatic hernia without obstruction or gangrene; K21.9 Gastro-esophageal reflux disease without esophagitis

== ENCOUNTER 2018-11-24 16:02 | Emergency (ER) | payer MEDICARE ==
[2018-11-24 16:04] VITALS: BMI 13.7
[2018-11-24 16:18] VITALS: BP 90/63; PULSE 109; RESP 18; TEMP 97.6; O2SAT 97
--- NOTE | 2018-11-24 17:19 | C.PDOC ---
History Of Present Illness 57 y/o female,w/PMhx of COPD and pleural effusion, presents to the ER complaining of bilateral leg swelling which has been present for the past 1 week. Patient states that she was evaluated by her PMD, and he referred her to the ER for "x-Ray of legs". Upon reading of Rx, patient was actually referred for venous doppler scan. Patient notes that she had shortness of breath in the morning today. of noted, pt b/l legs are weeping, markly swollen. Currently, patient denies having shortness of breath, chest pain, fever, and chills. Time Seen by Provider: 11/24/18 16:29 Chief Complaint (Nursing): Lower Extremity Problem/Injury History Per: Patient History/Exam Limitations: no limitations Onset/Duration Of Symptoms: Days Current Symptoms Are (Timing): Still Present Severity: Moderate Past Medical History Reviewed: Historical Data, Nursing Documentation, Vital Signs Vital Signs: Last Vital Signs Temp 97.6 F 11/24/18 16:14 Pulse 109 H 11/24/18 16:14 Resp 18 11/24/18 16:14 BP 90/63 L 11/24/18 16:14 Pulse Ox 97 11/24/18 16:14 - Medical History PMH: COPD, Depression, Gall Bladder Disease (Cholelithiasis), Pancreatitis, Pneumonia (CHILDHOOD) Denies: Anxiety, Chronic Kidney Disease Surgical History: Cholecystectomy, Endoscopy - [facility] Procedures ASSISTANCE WITH RESPIRATORY VENTILATION, >96 HRS, CPAP (09/09/17) DRAINAGE OF RIGHT PLEURAL CAVITY, PERC APPROACH, DIAGN (09/09/17) EXCISION OF SMALL INTESTINE, ENDO, DIAGN (09/09/17) FLUOROSCOPY OF GALLBLADDER & BILE DUCT USING L OSM CONTRAST (06/23/17) INSERT INTERCOSTAL CATH (11/15/13) NON-INVASIVE MECHANICAL VENTILATION (11/15/13) PARENTERAL INFUSION OF CONCENTRATED NUT. SUBSTANCE (11/15/13) RELEASE PELVIC SUBCU/FASCIA, PERC APPROACH (06/23/17) RESECTION OF GALLBLADDER, PERCUTANEOUS ENDOSCOPIC APPROACH (06/23/17) THORACOSCOPIC DECORTICATION OF LUNG (11/15/13) TRANSFUSE NONAUT RED BLOOD CELLS IN PERIPH VEIN, PERC (09/09/17) Family History: States: No Known Family Hx - Social History Hx Tobacco Use: Yes Hx Alcohol Use: No Hx Substance Use: No - Immunization History Hx Tetanus Toxoid Vaccination: No Hx Influenza Vaccination: No Hx Pneumococcal Vaccination: No Review Of Systems Except As Marked, All Systems Reviewed And Found Negative. Constitutional: Negative for: Fever, Chills Musculoskeletal: Positive for: Other (bilateral leg swelling) Physical Exam - Physical Exam Appears: Non-toxic, No Acute Distress Skin: Normal Color, No Warm (bilateral legs are cool to touch), Dry, Other (erythematous rash to bilateral legs) Head: Atraumatic, Normacephalic Eye(s): bilateral: Normal Inspection Nose: Normal Oral Mucosa: Moist Neck: Supple Chest: Symmetrical Cardiovascular: Rhythm Regular Respiratory: Normal Breath Sounds, No Rales, No Rhonchi, No Wheezing Gastrointestinal/Abdominal: Soft, No Tenderness, No Guarding, No Rebound Extremity: Normal ROM, Pedal Edema, Swelling (marked bilateral leg swelling), Other (difficult to assess pulses secondary to edema) Neurological/Psych: Oriented x3, Normal Speech ED Course And Treatment O2 Sat by Pulse Oximetry: 97 (RA) Pulse Ox Interpretation: Normal Medical Decision Making Medical Decision Making: Patient was informed that Venous Doppler Scan cannot be performed at this time. Patient was advised to have lab studies done to rule out blood clot, infection, blood clot in lungs, and heart failure, kidney failure. I discussed all the differential diagnoses and risk of not undergoing the studies including . i explained extensviely that we can obtain lab work to evaluate any of these conditions. I contacted PMD, in an attempt to have patient undergo further evaluation. As per , patient has prescription for abx and recent labwork done which was negative for kidney failure. I tried to persuade patient 3 more times to undergo the labwork. I informed that the labwork results could be used to rule out blood clot in her legs. However, patient declined and decided to sign out against medical advice. AMA The patient declines to have further medical evaluation and treatment and wishes to leave the Emergency Department. This action is against my medical advice to the patient, and with informed refusal. The patient was told that evaluation and treatment are necessary and a full explanation of the rationale was given. The risks of leaving were explained to the patient and include, but are not limited to, worsening of known or currently unknown conditions, permanent disability and from undiagnosed or untreated conditions The patient has the capacity to make this informed decision and understands the clinical situation and my explanation of the risks of leaving. The patient voluntarily accepts these risks, and a signed AMA form documenting our conversation was obtained. The patient was given the opportunity to ask questions and reconsider. The patient was encouraged to return to the Emergency Department at any time for further care. Disposition - Disposition Disposition: AGAINST MEDICAL ADVICE Disposition Time: 17:11 Condition: UNKNOWN Additional Instructions: return to any er with worsening. Instructions: Heart Failure, Adult (DC), Cellulitis (Skin Infection), Adult (DC), Leaving Against Medical Advice Forms: [employer] (Moroccan) - Clinical Impression Clinical Impression: Leg swelling - Scribe Statement The provider has reviewed the documentation as recorded by the Britney Tony Provider Attestation: All medical record entries made by the Conneribe were at my direction and personally dictated by me. I have reviewed the chart and agree that the record accurately reflects my personal performance of the history, physical exam, medical decision making, and the department course for this patient. I have also personally directed, reviewed, and agree with the discharge instructions and disposition.
== END 2018-11-24 17:27 | disposition left against medical advice (07) ==
LOC: C.ER 16:02
DX: M79.89 Other specified soft tissue disorders (principal)

== ENCOUNTER 2018-11-30 16:10 | Inpatient (IN) | payer MEDICARE ==
[2018-11-30 16:10] VITALS: BMI 13.7
[2018-11-30] MEDS ORDERED: Morphine 4 MG/ML VIAL ONE (17:42)
[2018-11-30 17:51] LABS: BASO % 0.3 % (0.0-2.0); EOS % 0.1 % (0.0-4.0); HEMOGLOBIN 12.3 g/dL (11.0-16.0); LYMPH % 17.6 % (20.0-40.0); MEAN CELL VOLUME 81.2 fL (81.0-99.0); MEAN CORPUSCULAR HEMOGLOBIN 25.8 pg (27.0-31.0); MEAN CORPUSCULAR HGB CONC 31.8 g/dL (33.0-37.0); MEAN PLATELET VOLUME 7.1 fL (7.2-11.7); MONO # 0.3 K/uL (0.0-0.8); MONO % 5.2 % (0.0-10.0); NEUT # 4.5 K/uL (1.8-7.0); NEUT % 76.8 % (50.0-75.0); RBC 4.75 Mil/uL (3.80-5.20); RED CELL DISTRIBUTION WIDTH 16.4 % (11.5-14.5); WHITE BLOOD COUNT 5.9 K/uL (4.8-10.8)
[2018-11-30 17:54] LABS: ALB/GLOB RATIO 1.1 (1.0-2.1); ALBUMIN 3.3 g/dL (3.5-5.0); ALT/SGPT 25 U/L (9-52); AST/SGOT 41 U/L (14-36); BLOOD UREA NITROGEN 5 mg/dL (7-17); CALCIUM 7.5 mg/dl (8.6-10.4); GFR NON-AFRICAN AMERICAN > 60
[2018-11-30] MEDS ORDERED: Sodium Chloride 0.9% 500 ML IV ONE (18:05)
[2018-11-30] MEDS ORDERED: Albuterol HFA 90 mcg/actuation (8 g) INH PRN (18:37)
[2018-11-30 18:43] LABS: INR 2.1; PROTHROMBIN TIME 23.3 SECONDS (9.7-12.2)
--- NOTE | 2018-11-30 18:43 | C.PDOC ---
History Of Present Illness Patient is a 58 year old female who presents to the ED c/o bilateral leg swelling for the past 3-4 weeks, with associated wounds and drainage. Patient reports seeing her PMD, who gave her abx with no relief. She reports that her wounds have become more open. She denies any fever, trauma, weakness, numbness, CP, or SOB. Time Seen by Provider: 11/30/18 16:22 Chief Complaint (Nursing): Lower Extremity Problem/Injury History Per: Patient History/Exam Limitations: no limitations Onset/Duration Of Symptoms: Other (3/4 weeks) Current Symptoms Are (Timing): Still Present Recent travel outside of the [place]: No Additional History Per: Patient Past Medical History Reviewed: Historical Data, Nursing Documentation, Vital Signs Vital Signs: Last Vital Signs Temp 98.2 F 11/30/18 16:21 Pulse 86 11/30/18 16:21 Resp 16 11/30/18 16:21 BP 100/68 11/30/18 16:21 Pulse Ox 97 11/30/18 16:21 - Medical History PMH: COPD, Depression, Gall Bladder Disease (Cholelithiasis), Pancreatitis, Pneumonia (CHILDHOOD) Denies: Anxiety, Chronic Kidney Disease Surgical History: Cholecystectomy, Endoscopy - [facility] Procedures ASSISTANCE WITH RESPIRATORY VENTILATION, >96 HRS, CPAP (09/09/17) DRAINAGE OF RIGHT PLEURAL CAVITY, PERC APPROACH, DIAGN (09/09/17) EXCISION OF SMALL INTESTINE, ENDO, DIAGN (09/09/17) FLUOROSCOPY OF GALLBLADDER & BILE DUCT USING L OSM CONTRAST (06/23/17) INSERT INTERCOSTAL CATH (11/15/13) NON-INVASIVE MECHANICAL VENTILATION (11/15/13) PARENTERAL INFUSION OF CONCENTRATED NUT. SUBSTANCE (11/15/13) RELEASE PELVIC SUBCU/FASCIA, PERC APPROACH (06/23/17) RESECTION OF GALLBLADDER, PERCUTANEOUS ENDOSCOPIC APPROACH (06/23/17) THORACOSCOPIC DECORTICATION OF LUNG (11/15/13) TRANSFUSE NONAUT RED BLOOD CELLS IN PERIPH VEIN, PERC (09/09/17) Family History: States: Unknown Family Hx - Social History Hx Tobacco Use: Yes Hx Alcohol Use: No Hx Substance Use: No - Immunization History Hx Tetanus Toxoid Vaccination: No Hx Influenza Vaccination: No Hx Pneumococcal Vaccination: No Review Of Systems Constitutional: Negative for: Fever Cardiovascular: Negative for: Chest Pain Respiratory: Negative for: Shortness of Breath Musculoskeletal: Positive for: Leg Pain (bilateral pedal edema with wounds and drainage) Neurological: Negative for: Weakness, Numbness Physical Exam - Physical Exam Appears: Non-toxic, Chronically Ill Skin: Normal Color, Warm, Dry Head: Atraumatic, Normacephalic Oral Mucosa: Moist Neck: Normal ROM, Supple Chest: Symmetrical, No Deformity Cardiovascular: Rhythm Regular, No Murmur Respiratory: Normal Breath Sounds, No Rales, No Rhonchi, No Wheezing Gastrointestinal/Abdominal: Soft, No Tenderness, No Guarding, No Rebound Extremity: Pedal Edema (bilateral 2+ ), Capillary Refill (less than 2 seconds ), Other (Positive weeping wounds to bilateral lower extremities with erythema ) Pulses: Left Dorsalis Pedis: Normal, Right Dorsalis Pedis: Normal Neurological/Psych: Oriented x3, Normal Speech, Normal Cognition ED Course And Treatment - Laboratory Results Result Diagrams: 11/30/18 17:35 11/30/18 17:35 Lab Results: Total Bilirubin 0.4 mg/dL (0.2-1.3) 11/30/18 17:35 AST 41 U/L (14-36) H D 11/30/18 17:35 ALT 25 U/L (9-52) 11/30/18 17:35 Alkaline Phosphatase 148 U/L (38-126) H D 11/30/18 17:35 Total Protein 6.3 g/dL (6.3-8.3) 11/30/18 17:35 Albumin 3.3 g/dL (3.5-5.0) L 11/30/18 17:35 Globulin 3.0 gm/dL (2.2-3.9) 11/30/18 17:35 Albumin/Globulin Ratio 1.1 (1.0-2.1) 11/30/18 17:35 O2 Sat by Pulse Oximetry: 97 (on RA) Pulse Ox Interpretation: Normal Critical Care Time - Critical Care Note Total Time (in mins): 37 Documented critical care: time excludes all time spent performing seperately billable procedures. Medical Decision Making Medical Decision Making: Plan: Bloodwork, Urine Chloride ordered and reviewed. Morphine 4mg IVP, Tylenol with Codeine 1each PO, Ventolin 1puff INH, Duoneb 1each IH, Eliquis 5mg PO, Ancef 500mg IVPB, Klonopin 1mg PO, Pepcid 20mg PO, Potassium Chloride 20meq PO, Zenpep Dr 1 tab PO, and IV Fluids administered. Discussed with PMD . States that hyponatremia is new and that patient has had a DVT and is supposed to be on Eliquis. Agreed to admit patient for cellulitis hyponatremia. Discussed with . Saw patient and agreed with care. Disposition - Disposition Disposition: HOSPITALIZED Disposition Time: 19:00 Condition: STABLE Forms: [employer] (Yakut) - Clinical Impression Clinical Impression: Hyponatremia, Cellulitis, Open leg wound - PA / STATION GATEMAN / Resident Statement MD/DO has examined the patient and agrees with the treatment plan. - Scribe Statement The provider has reviewed the documentation as recorded by the Scribemanuel Stein All medical record entries made by the Scribe were at my direction and per sonally dictated by me. I have reviewed the chart and agree that the record accurately reflects my personal performance of the history, physical exam, medical decision making, and the department course for this patient. I have also personally directed, reviewed, and agree with the discharge instructions and disposition.
[2018-11-30] MEDS ORDERED: Sodium Chloride 0.9% 1,000 ML IV SCH (18:45)
[2018-11-30] MEDS ORDERED: Acetaminophen-Codeine 300/30 mg Tab PO ONE (20:05)
[2018-11-30 20:26] LABS: BLOOD UREA NITROGEN 6 mg/dL (7-17); CALCIUM 6.5 mg/dl (8.6-10.4); GFR NON-AFRICAN AMERICAN > 60
--- NOTE | 2018-11-30 20:39 | CP.PCM.HP ---
Present on Admission - Present on Admission Any Indicators Present on Admission: Yes History of DVT/PE: Yes Past Patient History - Infectious Disease Hx of Infectious Diseases: None - Past Medical History & Family History Past Medical History?: Yes - Past Social History Smoking Status: Heavy Smoker > 10 Cigarettes Daily - CARDIAC Hx Cardiac Disorders: No - PULMONARY Hx Chronic Obstructive Pulmonary Disease (COPD): Yes Hx Pneumonia: Yes (CHILDHOOD) - NEUROLOGICAL Hx Neurological Disorder: No - HEENT Hx HEENT Problems: No - RENAL Hx Chronic Kidney Disease: No - ENDOCRINE/METABOLIC Hx Endocrine Disorders: No - HEMATOLOGICAL/ONCOLOGICAL Hx Blood Disorders: No Hx Blood Transfusions: Yes Hx Blood Transfusion Reaction: No Other/Comment: Hepatitis - INTEGUMENTARY Hx Dermatological Problems: No - MUSCULOSKELETAL/RHEUMATOLOGICAL Hx Musculoskeletal Disorders: No Hx Falls: No - GASTROINTESTINAL Hx Gall Bladder Disease: Yes (Cholelithiasis) Hx Pancreatitis: Yes - GENITOURINARY/GYNECOLOGICAL Hx Genitourinary Disorders: No Other/Comment: 1990 oophorectomy - PSYCHIATRIC Hx Anxiety: No Hx Depression: Yes Hx Substance Use: No - SURGICAL HISTORY Hx Cholecystectomy: Yes - ANESTHESIA Hx Anesthesia: Yes Hx Anesthesia Reactions: No Hx Malignant Hyperthermia: No Meds Allergies/Adverse Reactions: Allergies Allergy/AdvReac Type Severity Reaction Status Date / Time No Known Allergies Allergy Verified 11/30/18 16:21 Results - Vital Signs Recent Vital Signs: Last Vital Signs Temp 98.2 F 11/30/18 16:21 Pulse 89 11/30/18 19:33 Resp 20 11/30/18 19:33 BP 90/62 L 11/30/18 19:33 Pulse Ox 92 L 11/30/18 19:33 - Labs Result Diagrams: 11/30/18 17:35 11/30/18 20:03 Labs: Laboratory Results - last 24 hr 11/30/18 11/30/18 11/30/18 17:35 17:35 17:35 WBC 5.9 RBC 4.75 Hgb 12.3 Hct 38.6 MCV 81.2 D MCH 25.8 L MCHC 31.8 L RDW 16.4 H Plt Count 535 H D MPV 7.1 L Neut % (Auto) 76.8 H Lymph % (Auto) 17.6 L Yates % (Auto) 5.2 Eos % (Auto) 0.1 Baso % (Auto) 0.3 Neut # (Auto) 4.5 Lymph # (Auto) 1.0 Yates # (Auto) 0.3 Eos # (Auto) 0.0 Baso # (Auto) 0.0 PT 23.3 H INR 2.1 APTT 41 H Sodium 116 L* Potassium 3.3 L Chloride 78 L Carbon Dioxide 30 Anion Gap 12 BUN 5 L Creatinine 0.4 L Est GFR ( Amer) > 60 Est GFR (Non-Af Amer) > 60 Random Glucose 93 D Serum Osmolality Calcium 7.5 L Total Bilirubin 0.4 AST 41 H D ALT 25 Alkaline Phosphatase 148 H D Total Protein 6.3 Albumin 3.3 L Globulin 3.0 Albumin/Globulin Ratio 1.1 11/30/18 11/30/18 20:03 20:03 WBC RBC Hgb Hct MCV MCH MCHC RDW Plt Count MPV Neut % (Auto) Lymph % (Auto) Yates % (Auto) Eos % (Auto) Baso % (Auto) Neut # (Auto) Lymph # (Auto) Yates # (Auto) Eos # (Auto) Baso # (Auto) PT INR APTT Sodium 117 L* Potassium 3.6 Chloride 84 L Carbon Dioxide 26 Anion Gap 11 BUN 6 L Creatinine 0.5 L Est GFR ( Amer) > 60 Est GFR (Non-Af Amer) > 60 Random Glucose 97 Serum Osmolality 245 L Calcium 6.5 L Total Bilirubin AST ALT Alkaline Phosphatase Total Protein Albumin Globulin Albumin/Globulin Ratio
[2018-11-30] MEDS: Sodium Chloride 0.9% 1,000 ML IV SCH (21:05)
[2018-12-01] MEDS: Acetaminophen-Codeine 300/30 mg Tab PO PRN ×3 (00:01→10:33)
[2018-12-01] MEDS ORDERED: Acetaminophen-Codeine 300/30 mg Tab PO ONE ×2 (00:02→04:57)
[2018-12-01] MEDS: Albuterol-Ipratrop 3 mg / 0.5 (3 ml) UD IH SCH ×4 (00:52→19:13)
[2018-12-01] MEDS: Sodium Chloride 0.9% 1,000 ML IV SCH ×4 (05:01→21:45)
--- NOTE | 2018-12-01 05:07 | HP ---
CHIEF COMPLAINT: Bilateral lower leg swelling, redness for three to four weeks. HISTORY OF PRESENT ILLNESS: This is a 58-year-old female, well known to me with a history of chronic pancreatitis with pancreatic insufficiency as a result of malnourished. She has anxiety, depression. She has chronic abdominal pain, pseudocyst in the pancreas. She is compliant with diet, medication and followup. The patient apparently denied any history of alcohol abuse. The patient is on pain medications, and she is seeing a paint line production supervisor in the community. In her usual status of health, she is ambulatory and independent with activities of daily living. She lives with her son. She is compliant with diet, medication and followup. The patient developed bilateral lower extremity redness, swelling, and edema. There are ulcerated lesions all over both lower extremities from knee down to the feet. There is a clear water draining from her wounds. There are erythematous rash all over the leg which is ulcerated with white slough on the ulcers. There is no fever or chills. She denies any nausea, vomiting, or diarrhea. She gets chronic abdominal pain and as a result of that, the patient is sometime not able to eat. She has generalized weakness and tiredness. She has abdominal pain, which is diffuse. She has weakness. She has no history dysuria, hematuria, or pyuria. She denies any polyuria, polydipsia, or polyphagia. She denies any history of hematuria or pyuria. She denies any sneezing, itchy eyes, or itchy nose. She denies any history of fever, trauma, weakness, numbness, chest pain, or shortness of breath. She denies any history of hematemesis, melena, or hematochezia. She denies any paroxysmal nocturnal dyspnea. She has pain in the legs. The patient denies any joint pain, hip pain, or knee pain. The patient visited Emergency Room at [facility], and she signed out against medical advice almost a week ago and next day she ended up in [facility]. The patient underwent a venous Doppler, and venous Doppler was positive for DVT. The patient is Eliquis, and the patient claims that she is taking. ALLERGIES: UNKNOWN. CURRENT MEDICATIONS: At home, she is on Tylenol #4, Klonopin, Pepcid, K-Dur, Zenpep, Ventolin, and DuoNeb. SOCIAL HISTORY: She smokes. She denies drinking. FAMILY HISTORY: Positive for hypertension in the mother, GERD in the mother. PAST MEDICAL HISTORY: History of pancreatitis, pancreatic insufficiency, anxiety, depression, pseudocyst in the pancreas. PHYSICAL EXAMINATION: GENERAL: A middle-aged female, in no acute distress. She is complaining of abdominal pain. She has a wound in the leg. VITAL SIGNS: Blood pressure 100/68, pulse 86, respiratory rate 16, temperature 98.2. SKIN: The patient has extensive erythematous ulcerative lesions in the leg from knee down to the leg, which are erythematous with clear water draining, and the patient has white slough on those ulcers. HEENT: Atraumatic and normocephalic. Negative pallor. Negative jaundice. Extraocular movements are intact. NECK: Supple. No JVD. No lymph node. No thyromegaly. No carotid bruit. CHEST WALL: Bilateral symmetrical expansion. No tenderness. LUNGS: Bilaterally clear. No rales. No rhonchi. CARDIOVASCULAR SYSTEM: PMI in the fifth intercostal space. S1 and S2 are regular. No heave. No thrill. ABDOMEN: There is diffuse tenderness. Bowel sounds are normoactive and present. No masses. RECTAL: No masses. No bleed. EXTREMITIES: Lesions as above. CENTRAL NERVOUS SYSTEM: The patient is awake, alert, oriented x3. Cranial nerves II through XII are normal. Power 5/5 x4. Plantars are downgoing. ASSESSMENT: 1. Deep venous thrombosis of lower extremities. 2. Cellulitis of leg with ulcerative lesions. 3. Pancreatic insufficiency with pseudocyst. 4. Anxiety and depression. 5. Hyponatremia. This hyponatremia seems like from fluid losses, possibly from the leg. PLAN: Admit. Detailed orders are written. Seen and examined. Antibiotics. Wound culture. Normal saline. Repeat BMP. At the end, the patient will be followed up closely. Connor Baker MD
[2018-12-01 06:16] LABS: BLOOD UREA NITROGEN 7 mg/dL (7-17); CALCIUM 6.2 mg/dl (8.6-10.4); GFR NON-AFRICAN AMERICAN > 60
[2018-12-01] MEDS ORDERED: LIPASE/PROTEASE/AMYLASE 4,200 U ECC PO SCH (09:00)
[2018-12-01] MEDS ORDERED: Albuterol-Ipratrop 3 mg / 0.5 (3 ml) UD ONE (09:21)
[2018-12-01] MEDS: Potassium Chloride 20 mEq ER Tab PO SCH (10:04)
[2018-12-01 10:06] LABS: MEAN CELL VOLUME 82.9 fL (81.0-99.0); MEAN CORPUSCULAR HEMOGLOBIN 26.5 pg (27.0-31.0); MEAN PLATELET VOLUME 6.7 fL (7.2-11.7); RBC 3.58 Mil/uL (3.80-5.20); RED CELL DISTRIBUTION WIDTH 16.5 % (11.5-14.5)
[2018-12-01 10:23] LABS: HEMOGLOBIN 9.5 g/dL (11.0-16.0)
[2018-12-01] MEDS: LIPASE/PROTEASE/AMYLASE 4,200 U ECC PO SCH ×2 (12:59→18:04)
[2018-12-01] MEDS: Calcium-Vit D 500 mg-200 Units Tab UD PO SCH ×2 (12:59→18:05)
[2018-12-01] MEDS: Silver Sulfadiazine 1% Cream (20 gm) TOP SCH (13:22)
[2018-12-01 17:48] LABS: BLOOD UREA NITROGEN 5 mg/dL (7-17); CALCIUM 6.6 mg/dl (8.6-10.4); GFR NON-AFRICAN AMERICAN > 60
[2018-12-01] MEDS ORDERED: Iohexol 350mg/ml 100 ML ONE (19:19)
--- NOTE | 2018-12-01 19:34 | CP.PCM.CON ---
History of Present Illness - History of Present Illness History of Present Illness: Reason for consultation: Shortness of breath 58-year-old female with history of chronic pancreatitis with possible pseudocyst has history of anxiety and depression presented to emergency room with bilateral lower extremity redness swelling and edema with drainage from her wounds. Denies fever or chills, denies nausea vomiting or diarrhea. Patient also complaining of shortness of breath but denies any chest pain. Patient has hi story of DVT which was recently diagnosed in [facility] and was started on Eliquis. Patient refusing ABG and other blood work. Review of Systems - Review of Systems All systems: reviewed and no additional remarkable complaints except (Shortness of breath) Past Patient History - Infectious Disease Hx of Infectious Diseases: None - Past Medical History & Family History Past Medical History?: Yes - Past Social History Smoking Status: Heavy Smoker > 10 Cigarettes Daily - CARDIAC Hx Cardiac Disorders: No - PULMONARY Hx Chronic Obstructive Pulmonary Disease (COPD): Yes Hx Pneumonia: Yes (CHILDHOOD) - NEUROLOGICAL Hx Neurological Disorder: No - HEENT Hx HEENT Problems: No - RENAL Hx Chronic Kidney Disease: No - ENDOCRINE/METABOLIC Hx Endocrine Disorders: No - HEMATOLOGICAL/ONCOLOGICAL Hx Blood Disorders: No Hx Blood Transfusions: Yes Hx Blood Transfusion Reaction: No Other/Comment: Hepatitis - INTEGUMENTARY Hx Dermatological Problems: No - MUSCULOSKELETAL/RHEUMATOLOGICAL Hx Falls: No - GASTROINTESTINAL Hx Gall Bladder Disease: Yes (Cholelithiasis) Hx Pancreatitis: Yes - GENITOURINARY/GYNECOLOGICAL Hx Genitourinary Disorders: No Other/Comment: 1990 oophorectomy - PSYCHIATRIC Hx Substance Use: No - SURGICAL HISTORY Hx Cholecystectomy: Yes - ANESTHESIA Hx Anesthesia: Yes Hx Anesthesia Reactions: No Hx Malignant Hyperthermia: No Meds Allergies/Adverse Reactions: Allergies Allergy/AdvReac Type Severity Reaction Status Date / Time No Known Allergies Allergy Verified 11/30/18 16:21 - Medications Medications: Current Medications Acetaminophen/Codeine Phosphate (Tylenol/Codeine 300 Mg/30 Mg) 1 ea PO Q4 PRN PRN Reason: Pain, moderate (4-7) Last Admin: 12/01/18 10:33 Dose: 1 ea Albuterol (Ventolin Hfa 90 Mcg/Actuation (8 G)) 1 puff INH RQ6 PRN PRN Reason: Shortness of Breath Albuterol/Ipratropium (Duoneb 3 Mg/0.5 Mg (3 Ml) Ud) 3 ml IH RQ6 [facility] Last Admin: 12/01/18 19:13 Dose: 3 ml Calcium/Vitamin D (Oyster Shell Calcium/Vitamin D 500 Mg-200 Iu) 1 tab PO BID [facility] Last Admin: 12/01/18 18:05 Dose: 1 tab Clonazepam (Klonopin) 1 mg PO BID [facility] Last Admin: 12/01/18 18:05 Dose: 1 mg Famotidine (Pepcid) 20 mg PO BID [facility] Last Admin: 12/01/18 18:05 Dose: 20 mg Cefazolin Sodium 500 mg/ (Sodium Chloride) 50 mls @ 100 mls/hr IVPB Q8H [facility]; Protocol Last Admin: 12/01/18 12:44 Dose: 100 mls/hr Sodium Chloride (Sodium Chloride 0.9%) 1,000 mls @ 150 mls/hr IV .[id number] [facility] Last Admin: 12/01/18 17:08 Dose: Not Given Potassium Chloride (K-Dur 20 Meq Er Tab) 20 meq PO DAILY [facility] Last Admin: 12/01/18 10:04 Dose: 20 meq Silver Sulfadiazine (Silvadene 1% 20 Gm) 8 ea TOP BID [facility] Last Admin: 12/01/18 13:22 Dose: Not Given Physical Exam - Head Exam Head Exam: ATRAUMATIC, NORMOCEPHALIC - ENT Exam ENT Exam: Mucous Membranes Moist - Neck Exam Neck exam: Positive for: Normal Inspection - Respiratory Exam Respiratory Exam: Decreased Breath Sounds - Cardiovascular Exam Cardiovascular Exam: REGULAR RHYTHM - GI/Abdominal Exam GI & Abdominal Exam: Normal Bowel Sounds - Extremities Exam Extremities exam: Positive for: normal inspection Results - Vital Signs Recent Vital Signs: Last Vital Signs Temp 97.9 F 12/01/18 16:36 Pulse 97 H 12/01/18 16:36 Resp 18 12/01/18 16:36 BP 95/61 L 12/01/18 16:36 Pulse Ox 100 12/01/18 16:25 - Labs Result Diagrams: 12/01/18 10:00 12/01/18 17:30 Labs: Laboratory Results - last 24 hr 11/30/18 11/30/18 11/30/18 20:03 20:03 23:48 WBC RBC Hgb Hct MCV MCH MCHC RDW Plt Count MPV Sodium 117 L* Potassium 3.6 Chloride 84 L Carbon Dioxide 26 Anion Gap 11 BUN 6 L Creatinine 0.5 L Est GFR ( Amer) > 60 Est GFR (Non-Af Amer) > 60 Random Glucose 97 Serum Osmolality 245 L Calcium 6.5 L Urine Osmolality 136 L Ur Random Sodium 6 Ur Random Potassium 3.8 12/01/18 12/01/18 12/01/18 05:51 10:00 17:30 WBC 7.0 RBC 3.58 L Hgb 9.5 L D Hct 29.7 L MCV 82.9 MCH 26.5 L MCHC 32.0 L RDW 16.5 H Plt Count 416 H D MPV 6.7 L Sodium 125 L 129 L Potassium 3.3 L 4.1 Chloride 92 L 101 Carbon Dioxide 29 24 Anion Gap 7 L 9 L BUN 7 5 L Creatinine 0.5 L 0.5 L Est GFR ( Amer) > 60 > 60 Est GFR (Non-Af Amer) > 60 > 60 Random Glucose 92 73 D Serum Osmolality Calcium 6.2 L 6.6 L Urine Osmolality Ur Random Sodium Ur Random Potassium Assessment & Plan (1) Chr obstructive pulmonary disease w/ acute lower respiratory infxn Status: Acute Comment: Nebulizer treatment. IV steroids. Patient refusing ABG. Advised to quit smoking (2) DVT (deep venous thrombosis) Status: Acute Comment: Patient started on Lovenox. CT angios to rule out PE. ICU observation. Cardiology consult (3) Cellulitis Status: Acute (4) Hyponatremia Status: Acute
[2018-12-01] MEDS ORDERED: Enoxaparin 40 mg Syringe SC STA (20:47)
--- NOTE | 2018-12-01 21:21 | CP.PCM.PN ---
Subjective - Date & Time of Evaluation Date of Evaluation: 12/01/18 Time of Evaluation: 16:00 - Subjective Subjective: dictated Objective - Vital Signs/Intake and Output Vital Signs (last 24 hours): Temp Pulse Resp BP Pulse Ox 97.9 F 97 H 18 95/61 L 100 12/01/18 16:36 12/01/18 16:36 12/01/18 16:36 12/01/18 16:36 12/01/18 16:25 - Medications Medications: Current Medications Acetaminophen/Codeine Phosphate (Tylenol/Codeine 300 Mg/30 Mg) 1 ea PO Q4 PRN PRN Reason: Pain, moderate (4-7) Last Admin: 12/01/18 10:33 Dose: 1 ea Albuterol (Ventolin Hfa 90 Mcg/Actuation (8 G)) 1 puff INH RQ6 PRN PRN Reason: Shortness of Breath Albuterol/Ipratropium (Duoneb 3 Mg/0.5 Mg (3 Ml) Ud) 3 ml IH RQ6 [facility] Last Admin: 12/01/18 19:13 Dose: 3 ml Calcium/Vitamin D (Oyster Shell Calcium/Vitamin D 500 Mg-200 Iu) 1 tab PO BID [facility] Last Admin: 12/01/18 18:05 Dose: 1 tab Clonazepam (Klonopin) 1 mg PO BID [facility] Last Admin: 12/01/18 18:05 Dose: 1 mg Famotidine (Pepcid) 20 mg PO BID [facility] Last Admin: 12/01/18 18:05 Dose: 20 mg Cefazolin Sodium 500 mg/ (Sodium Chloride) 50 mls @ 100 mls/hr IVPB Q8H [facility]; Protocol Last Admin: 12/01/18 12:44 Dose: 100 mls/hr Sodium Chloride (Sodium Chloride 0.9%) 1,000 mls @ 150 mls/hr IV .Q6H40M [facility] Last Admin: 12/01/18 17:08 Dose: Not Given Potassium Chloride (K-Dur 20 Meq Er Tab) 20 meq PO DAILY [facility] Last Admin: 12/01/18 10:04 Dose: 20 meq Silver Sulfadiazine (Silvadene 1% 20 Gm) 8 ea TOP BID [facility] Last Admin: 12/01/18 13:22 Dose: Not Given - Labs Labs: 12/01/18 10:00 12/01/18 17:30 PT 23.3 SECONDS (9.7-12.2) H 11/30/18 17:35 INR 2.1 11/30/18 17:35 APTT 41 SECONDS (21-34) H 11/30/18 17:35
--- NOTE | 2018-12-01 21:56 | CARD ---
APPROVED REPORT Date of service: 12/01/2018 EXAM: Two-dimensional and M-mode echocardiogram with Doppler and color Doppler. Other Information Quality : Technically LimitedRhythm : INDICATION Congestive Heart Failure COPD TDS RISK FACTORS Smoking 2D DIMENSIONS LA Assrsz33 (18-58mL)LVEF (Sharif's)70 % M-Mode DIMENSIONS RVDd2.95 (2.1-3.2cm)Left Atrium (MM)2.98 (2.5-4.0cm) IVSd0.62 (0.7-1.1cm)Aortic Root3.72 (2.2-3.7cm) LVDd3.61 (4.0-5.6cm)Aortic Cusp Exc.2.04 (1.5-2.0cm) PWd0.53 (0.7-1.1cm)FS (%) 31 % LVDs2.50 (2.0-3.8cm)LVEF (%)59 (>50%) Mitral Valve MV E Okzvrdas63.7cm/sMV A Yeftmfoj50.0cm/sE/A ratio0.8 TDI Lateral E' Peak V10.91cm/sMedial E' Peak V6.28cm/sE/Lateral E'3.9 E/Medial E'6.8 Tricuspid Valve TR Peak [id number]/sTR Peak Gr.[id number] LEFT VENTRICLE The left ventricle is normal size. There is normal left ventricular wall thickness. The left ventricular function is normal. The left ventricular ejection fraction is within the normal range. About 65% No regional wall motion abnormalities noted. The left ventricular diastolic function is indeterminate No left ventricle thrombus noted on this study. There is no ventricular septal defect visualized. There is no left ventricular aneurysm. There is no mass noted in the left ventricle. RIGHT VENTRICLE Markedly dialted right ventricle with markedly reduced right ventricular systolic function. There is normal right ventricular wall thickness. The right ventricular systolic function is normal. ATRIA The left atrium size is normal. The right atrium size is markedly dilated. The interatrial septum is intact with no evidence for an atrial septal defect. AORTIC VALVE The aortic valve is normal in structure and function. No aortic regurgitation is present. There is no aortic valvular stenosis. There is no aortic valvular vegetation. MITRAL VALVE The mitral valve is normal in structure and function. There is no evidence of mitral valve prolapse. There is no mitral valve stenosis. There is no mitral valve regurgitation noted. TRICUSPID VALVE The tricuspid valve is normal in structure and function. There is mild tricuspid valve regurgitation noted. Estimated PA systolic pressure is 55 mm Hg. There is no tricuspid valve prolapse or vegetation. There is no tricuspid valve stenosis. PULMONIC VALVE The pulmonary valve is normal in structure and function. There is no pulmonic valvular regurgitation. There is no pulmonic valvular stenosis. GREAT VESSELS The aortic root is normal in size. The ascending aorta is normal in size. The pulmonary artery is normal. The IVC is normal in size and collapses about 50% with inspiration. PERICARDIAL EFFUSION The pericardium appears normal. There is no pleural effusion. <Conclusion> The left ventricular function is normal. Normal wall motion. Markedly dialted right ventricle with markedly reduced right ventricular systolic function. Markedly dialted right atrium. Moderate pulmonary HTN
[2018-12-02] MEDS: Albuterol-Ipratrop 3 mg / 0.5 (3 ml) UD IH SCH ×3 (02:28→20:01)
--- NOTE | 2018-12-02 03:52 | PN ---
DATE: 12/01/2018 SUBJECTIVE: The patient is dyspneic. She is in distress. She is afebrile. Her sodium is coming up. Her potassium has gone up. Calcium is low, and it seemed like she might have pulmonary embolism as she is in respiratory distress. PHYSICAL EXAMINATION: VITAL SIGNS: Blood pressure is 186/75, pulse 104, respiratory rate 16, temperature 98.7. LUNGS: Bilateral rales, rhonchi. Decreased air entry. CARDIOVASCULAR SYSTEM: S1 and S2. Regular. ABDOMEN: Soft. ASSESSMENT: 1. Rule out pulmonary embolism, could be pulmonary hypertension with diastolic heart failure. 2. Chronic obstructive pulmonary disease. 3. Deep venous thrombosis, rule out pulmonary embolism. 4. Anxiety and depression. PLAN: MICU. Monitor patient. Connor Baker MD
[2018-12-02 06:20] LABS: BASO % 0.5 % (0.0-2.0); EOS % 0.3 % (0.0-4.0); HEMOGLOBIN 9.4 g/dL (11.0-16.0); LYMPH # 0.6 K/uL (1.0-4.3); LYMPH % 8.4 % (20.0-40.0); MEAN CELL VOLUME 82.9 fL (81.0-99.0); MEAN CORPUSCULAR HEMOGLOBIN 26.3 pg (27.0-31.0); MEAN CORPUSCULAR HGB CONC 31.8 g/dL (33.0-37.0); MEAN PLATELET VOLUME 7.4 fL (7.2-11.7); MONO # 0.7 K/uL (0.0-0.8); MONO % 9.6 % (0.0-10.0); NEUT # 6.1 K/uL (1.8-7.0); NEUT % 81.2 % (50.0-75.0); PLATELET COUNT 433 K/uL (130-400); RBC 3.56 Mil/uL (3.80-5.20); RED CELL DISTRIBUTION WIDTH 16.5 % (11.5-14.5); WHITE BLOOD COUNT 7.5 K/uL (4.8-10.8)
[2018-12-02] MEDS: Sodium Chloride 0.9% 1,000 ML IV SCH ×2 (06:38→08:46)
[2018-12-02] MEDS: Acetaminophen-Codeine 300/30 mg Tab PO PRN ×3 (06:40→17:39)
[2018-12-02] MEDS: Silver Sulfadiazine 1% Cream (20 gm) TOP SCH ×3 (06:41→17:38)
[2018-12-02 08:32] LABS: LYMPHOCYTE 5 % (20-40); MONOCYTE 2 % (0-10); NEUTROPHIL 93 % (50-75); PLATELET ESTIMATE SLIGHTLY INCREASED (NORMAL); TOTAL CELLS COUNTED 100
[2018-12-02 08:33] LABS: ANISOCYTOSIS SLIGHT; HYPOCHROMIC SLIGHT; POLYCHROMIC SLIGHT; TARGET CELLS SLIGHT
[2018-12-02] MEDS ORDERED: Enoxaparin 40 mg Syringe SC SCH (10:00)
[2018-12-02] MEDS: Potassium Chloride 20 mEq ER Tab PO SCH (11:13)
[2018-12-02] MEDS: LIPASE/PROTEASE/AMYLASE 4,200 U ECC PO SCH ×3 (11:14→17:38)
[2018-12-02] MEDS: Calcium-Vit D 500 mg-200 Units Tab UD PO SCH ×2 (11:14→17:38)
[2018-12-02] MEDS: Enoxaparin 60 mg Syringe SC SCH ×2 (11:31→23:25)
--- NOTE | 2018-12-02 13:01 | CT ---
Date of service: 12/01/2018 CTA chest PE protocol Indication: SOB Technique: Contiguous axial images were obtained through the chest with intravenous contrast enhancement. Sagittal and coronal reconstructions were generated and reviewed. This CT exam was performed using 1 or more of the following dose reduction techniques: Automated exposure control, adjustment of the MAA and/or kV according to patient size, and/or use of iterative reconstruction technique. IV contrast: 100 cc Omnipaque 300 IV Radiation dose (DLP): 311.32 MGy-cm. Comparison: Chest x-ray performed 09/23/17 Findings: The mediastinal and hilar vascular structures appear grossly unremarkable. The heart appears within normal limits of size. Main pulmonary artery appears dilated consistent with pulmonary arterial hypertension ; correlate clinically. No large central or segmental pulmonary embolus evident. Hyperinflation may be seen in setting of COPD. Emphysematous changes. No focal consolidation. No pleural effusion. Right basilar pleural thickening/atelectasis. Limited visualized portions of the upper abdomen: 2.2 x 1.6 cm irregular hyperdense focus within the gastric fundus indeterminate possibly related to ingested material such as medication. Mild ascites. Degenerative changes. Impression: Hyperinflation/emphysema. Right basilar pleural thickening or atelectasis. Dilated main pulmonary artery consistent with pulmonary arterial hypertension; correlate clinically. No large central or segmental pulmonary embolus identified. Limited visualized portions of the upper abdomen: 2.2 x 1.6 cm irregular hyperdense focus within the gastric fundus indeterminate possibly related to ingested material such as medication. Mild ascites. Preliminary impression was provided by [employer].
--- NOTE | 2018-12-02 18:09 | CP.PCM.PN ---
Subjective - Date & Time of Evaluation Date of Evaluation: 12/02/18 Time of Evaluation: 15:00 - Subjective Subjective: Patient seen and examined. Breathing much improved Patient is responsive Denies fever chills, denies chest pain CT angios negative for pulmonary embolism Continue Lovenox for DVT Objective - Vital Signs/Intake and Output Vital Signs (last 24 hours): Temp Pulse Resp BP Pulse Ox 97.5 F L 107 H 25 H 98/68 L 100 12/02/18 16:00 12/02/18 18:00 12/02/18 18:00 12/02/18 17:04 12/02/18 14:04 Intake and Output: 12/02/18 12/02/18 06:59 18:59 Intake Total 1550 980 Output Total 400 0 Balance 1150 980 - Medications Medications: Current Medications Acetaminophen/Codeine Phosphate (Tylenol/Codeine 300 Mg/30 Mg) 2 ea PO Q4 PRN PRN Reason: pain Last Admin: 12/02/18 17:39 Dose: 2 ea Albuterol (Ventolin Hfa 90 Mcg/Actuation (8 G)) 1 puff INH RQ6 PRN PRN Reason: Shortness of Breath Albuterol/Ipratropium (Duoneb 3 Mg/0.5 Mg (3 Ml) Ud) 3 ml IH RQ6 [facility] Last Admin: 12/02/18 07:45 Dose: 3 ml Calcium/Vitamin D (Oyster Shell Calcium/Vitamin D 500 Mg-200 Iu) 1 tab PO BID [facility] Last Admin: 12/02/18 17:38 Dose: 1 tab Clonazepam (Klonopin) 1 mg PO BID [facility] Last Admin: 12/02/18 17:38 Dose: 1 mg Enoxaparin Sodium (Lovenox) 45 mg SC Q12H [facility] Last Admin: 12/02/18 11:31 Dose: 45 mg Famotidine (Pepcid) 20 mg PO BID [facility] Last Admin: 12/02/18 17:38 Dose: 20 mg Cefazolin Sodium 500 mg/ (Sodium Chloride) 50 mls @ 100 mls/hr IVPB Q8H [facility]; Protocol Last Admin: 12/02/18 11:15 Dose: 100 mls/hr Sodium Chloride (Sodium Chloride 0.9%) 1,000 mls @ 150 mls/hr IV .Q6H40M [facility] Last Admin: 12/02/18 08:46 Dose: 150 mls/hr Potassium Chloride (K-Dur 20 Meq Er Tab) 20 meq PO DAILY [facility] Last Admin: 12/02/18 11:13 Dose: 20 meq Silver Sulfadiazine (Silvadene 1% 20 Gm) 8 ea TOP BID [facility] Last Admin: 12/02/18 17:38 Dose: 1 appl - Labs Labs: 12/02/18 06:09 12/01/18 17:30 PT 23.3 SECONDS (9.7-12.2) H 11/30/18 17:35 INR 2.1 11/30/18 17:35 APTT 41 SECONDS (21-34) H 11/30/18 17:35 - Head Exam Head Exam: ATRAUMATIC, NORMOCEPHALIC - ENT Exam ENT Exam: Mucous Membranes Moist - Neck Exam Neck Exam: Normal Inspection - Respiratory Exam Respiratory Exam: Decreased Breath Sounds - Cardiovascular Exam Cardiovascular Exam: REGULAR RHYTHM - GI/Abdominal Exam GI & Abdominal Exam: Soft, Normal Bowel Sounds Assessment and Plan (1) Chr obstructive pulmonary disease w/ acute lower respiratory infxn Assessment & Plan: Continue nebulizer treatment and IV steroids Status: Acute (2) DVT (deep venous thrombosis) Assessment & Plan: Continue Lovenox for now Status: Acute (3) Cellulitis Assessment & Plan: On IV antibiotics and follow-up culture and sensitivity Status: Acute (4) Hyponatremia Status: Acute
--- NOTE | 2018-12-02 18:19 | CP.PCM.CON ---
<Marichuy Hinton - Last Filed: 12/02/18 18:16> History of Present Illness - History of Present Illness History of Present Illness: Cardiac Consult for Dr. Rea: 58 year old female with a past medical history of COPD, Pancreatitis, Pneumonia, Cholelithiasis, Anxiety and Depression who is currently admitted for bilateral leg swelling with open ulcers. Patient states the leg swelling began approximately 3-4 weeks ago, with no other associated symptoms at the time. Patient was told at [facility] a week ago that she had a DVT in LE, however, patient is unaware of which leg and/or both. She states she was taking her Eliquis as told. Limited history and ROS due to patient's unwillingness to answer questions and flat affect. Chart Review: PMD: Dr. Baker Past Medical History: COPD, Pancreatitis, Pneumonia, Cholelithiasis, Anxiety and Depression Medications: Tylenol #4, Klonopin, Pepcid, K-Dur, Zenpep, Ventolin, Duoneb Social History: Admits to tobacco smoking (unknown length and quantity). Denies alcohol use. Review of Systems - Review of Systems Systems not reviewed;Unavailable: Uncooperative - Cardiovascular Cardiovascular: Dyspnea - Respiratory Respiratory: Dyspnea Past Patient History - Infectious Disease Hx of Infectious Diseases: None - Past Medical History & Family History Past Medical History?: Yes - Past Social History Smoking Status: Heavy Smoker > 10 Cigarettes Daily - CARDIAC Hx Cardiac Disorders: No - PULMONARY Hx Chronic Obstructive Pulmonary Disease (COPD): Yes Hx Pneumonia: Yes (CHILDHOOD) - NEUROLOGICAL Hx Neurological Disorder: No - HEENT Hx HEENT Problems: No - RENAL Hx Chronic Kidney Disease: No - ENDOCRINE/METABOLIC Hx Endocrine Disorders: No - HEMATOLOGICAL/ONCOLOGICAL Hx Blood Disorders: No Hx Blood Transfusions: Yes Hx Blood Transfusion Reaction: No Other/Comment: Hepatitis - INTEGUMENTARY Hx Dermatological Problems: No - MUSCULOSKELETAL/RHEUMATOLOGICAL Hx Falls: No - GASTROINTESTINAL Hx Gall Bladder Disease: Yes (Cholelithiasis) Hx Pancreatitis: Yes - GENITOURINARY/GYNECOLOGICAL Hx Genitourinary Disorders: No Other/Comment: 1990 oophorectomy - PSYCHIATRIC Hx Substance Use: No - SURGICAL HISTORY Hx Cholecystectomy: Yes - ANESTHESIA Hx Anesthesia: Yes Hx Anesthesia Reactions: No Hx Malignant Hyperthermia: No Meds Allergies/Adverse Reactions: Allergies Allergy/AdvReac Type Severity Reaction Status Date / Time No Known Allergies Allergy Verified 11/30/18 16:21 - Medications Medications: Current Medications Acetaminophen/Codeine Phosphate (Tylenol/Codeine 300 Mg/30 Mg) 2 ea PO Q4 PRN PRN Reason: pain Last Admin: 12/02/18 17:39 Dose: 2 ea Albuterol (Ventolin Hfa 90 Mcg/Actuation (8 G)) 1 puff INH RQ6 PRN PRN Reason: Shortness of Breath Albuterol/Ipratropium (Duoneb 3 Mg/0.5 Mg (3 Ml) Ud) 3 ml IH RQ6 [facility] Last Admin: 12/02/18 07:45 Dose: 3 ml Calcium/Vitamin D (Oyster Shell Calcium/Vitamin D 500 Mg-200 Iu) 1 tab PO BID [facility] Last Admin: 12/02/18 17:38 Dose: 1 tab Clonazepam (Klonopin) 1 mg PO BID [facility] Last Admin: 12/02/18 17:38 Dose: 1 mg Enoxaparin Sodium (Lovenox) 45 mg SC Q12H [facility] Last Admin: 12/02/18 11:31 Dose: 45 mg Famotidine (Pepcid) 20 mg PO BID [facility] Last Admin: 12/02/18 17:38 Dose: 20 mg Cefazolin Sodium 500 mg/ (Sodium Chloride) 50 mls @ 100 mls/hr IVPB Q8H [facility]; Protocol Last Admin: 12/02/18 11:15 Dose: 100 mls/hr Sodium Chloride (Sodium Chloride 0.9%) 1,000 mls @ 150 mls/hr IV .Q6H40M [facility] Last Admin: 12/02/18 08:46 Dose: 150 mls/hr Potassium Chloride (K-Dur 20 Meq Er Tab) 20 meq PO DAILY [facility] Last Admin: 12/02/18 11:13 Dose: 20 meq Silver Sulfadiazine (Silvadene 1% 20 Gm) 8 ea TOP BID [facility] Last Admin: 12/02/18 17:38 Dose: 1 appl Physical Exam - Constitutional Appears: Chronically Ill - Head Exam Head Exam: ATRAUMATIC, NORMAL INSPECTION - Eye Exam Eye Exam: EOMI, Normal appearance - ENT Exam ENT Exam: Mucous Membranes Dry - Respiratory Exam Respiratory Exam: NORMAL BREATHING PATTERN - Cardiovascular Exam Cardiovascular Exam: Tachycardia, +S1, +S2 - GI/Abdominal Exam GI & Abdominal Exam: Normal Bowel Sounds, Soft. absent: Tenderness - Extremities Exam Additional comments: Covered in gauze, Bilateral leg swelling R>L; R +1 edema, L pitting edema - Psychiatric Exam Psychiatric exam: Depressed, Flat Affect Results - Vital Signs Recent Vital Signs: Last Vital Signs Temp 97.5 F L 12/02/18 16:00 Pulse 107 H 12/02/18 18:00 Resp 25 H 12/02/18 18:00 BP 98/68 L 12/02/18 17:04 Pulse Ox 100 12/02/18 14:04 - Labs Result Diagrams: 12/02/18 06:09 12/01/18 17:30 Labs: Laboratory Results - last 24 hr 11/30/18 12/02/18 23:48 06:09 WBC 7.5 RBC 3.56 L Hgb 9.4 L Hct 29.5 L MCV 82.9 MCH 26.3 L MCHC 31.8 L RDW 16.5 H Plt Count 433 H MPV 7.4 Neut % (Auto) 81.2 H Lymph % (Auto) 8.4 L [place] % (Auto) 9.6 Eos % (Auto) 0.3 Baso % (Auto) 0.5 Neut # (Auto) 6.1 Lymph # (Auto) 0.6 L [place] # (Auto) 0.7 Eos # (Auto) 0.0 Baso # (Auto) 0.0 Neutrophils % (Manual) 93 H Lymphocytes % (Manual) 5 L Monocytes % (Manual) 2 Platelet Estimate Slightly increased H Polychromasia Slight Hypochromasia (manual) Slight Anisocytosis (manual) Slight Target Cells Slight Urine Chloride 29 L Assessment & Plan - Assessment and Plan (Free Text) Assessment: 58 year old with PMHx of COPD, Pancreatitis, Pneumonia, Cholelithiasis, Anxiety and Depression who is currently admitted for bilateral leg edema with draining ulcers. Cardiac consult for Dyspnea; possible PE Shortness of breath Most likely secondary to Emphysema - Chest CT: Hyperinflation/emphysema. No large central or segmental pulmonary embolus identified. Right basilar pleural thickening or atelectasis. Dilated main pulmonary artery consistent with pulmonary arterial hypertension; correlate clinically. Severe Pulmonary HTN - ECHO (12/01/18): Markedly dilated right ventricle with markedly reduced right ventricular systolic function. Dilated right atrium. Moderate pulmonary HTN. The left ventricular function is normal. Normal wall motion. - Severe pulmonary HTN secondary to emphysema No further cardiac intervention at this time. Case discussed with Dr. Álvaro Hinton PGY-2 <Federico Rea - Last Filed: 12/02/18 22:12> Meds - Medications Medications: Current Medications Acetaminophen/Codeine Phosphate (Tylenol/Codeine 300 Mg/30 Mg) 2 ea PO Q4 PRN PRN Reason: pain Last Admin: 12/02/18 17:39 Dose: 2 ea Albuterol (Ventolin Hfa 90 Mcg/Actuation (8 G)) 1 puff INH RQ6 PRN PRN Reason: Shortness of Breath Albuterol/Ipratropium (Duoneb 3 Mg/0.5 Mg (3 Ml) Ud) 3 ml IH RQ6 [facility] Last Admin: 12/02/18 20:01 Dose: Not Given Calcium/Vitamin D (Oyster Shell Calcium/Vitamin D 500 Mg-200 Iu) 1 tab PO BID [facility] Last Admin: 12/02/18 17:38 Dose: 1 tab Clonazepam (Klonopin) 1 mg PO BID [facility] Last Admin: 12/02/18 17:38 Dose: 1 mg Enoxaparin Sodium (Lovenox) 45 mg SC Q12H [facility] Last Admin: 12/02/18 11:31 Dose: 45 mg Famotidine (Pepcid) 20 mg PO BID [facility] Last Admin: 12/02/18 17:38 Dose: 20 mg Cefazolin Sodium 500 mg/ (Sodium Chloride) 50 mls @ 100 mls/hr IVPB Q8H [facility]; Protocol Last Admin: 12/02/18 20:18 Dose: 100 mls/hr Sodium Chloride (Sodium Chloride 0.9%) 1,000 mls @ 150 mls/hr IV .Q6H40M [facility] Last Admin: 12/02/18 08:46 Dose: 150 mls/hr Potassium Chloride (K-Dur 20 Meq Er Tab) 20 meq PO DAILY [facility] Last Admin: 12/02/18 11:13 Dose: 20 meq Silver Sulfadiazine (Silvadene 1% 20 Gm) 8 ea TOP BID [facility] Last Admin: 12/02/18 17:38 Dose: 1 appl Results - Vital Signs Recent Vital Signs: Last Vital Signs Temp 98.1 F 12/02/18 20:00 Pulse 100 H 12/02/18 21:00 Resp 19 12/02/18 21:00 BP 94/64 L 12/02/18 19:42 Pulse Ox 100 12/02/18 14:04 - Labs Result Diagrams: 12/02/18 06:09 12/01/18 17:30 Labs: Laboratory Results - last 24 hr 11/30/18 12/02/18 23:48 06:09 WBC 7.5 RBC 3.56 L Hgb 9.4 L Hct 29.5 L MCV 82.9 MCH 26.3 L MCHC 31.8 L RDW 16.5 H Plt Count 433 H MPV 7.4 Neut % (Auto) 81.2 H Lymph % (Auto) 8.4 L [place] % (Auto) 9.6 Eos % (Auto) 0.3 Baso % (Auto) 0.5 Neut # (Auto) 6.1 Lymph # (Auto) 0.6 L [place] # (Auto) 0.7 Eos # (Auto) 0.0 Baso # (Auto) 0.0 Neutrophils % (Manual) 93 H Lymphocytes % (Manual) 5 L Monocytes % (Manual) 2 Platelet Estimate Slightly increased H Polychromasia Slight Hypochromasia (manual) Slight Anisocytosis (manual) Slight Target Cells Slight Urine Chloride 29 L Assessment & Plan - Assessment and Plan (Free Text) Assessment: Patient seen and evaluated personally by me. Plan of care d/w the medical lab technologist and as documented
[2018-12-02] MEDS ORDERED: Enoxaparin 40 mg Syringe SC ONE (19:50)
--- NOTE | 2018-12-02 21:50 | CP.PCM.PN ---
Subjective - Date & Time of Evaluation Date of Evaluation: 12/02/18 Time of Evaluation: 09:00 - Subjective Subjective: dictated Objective - Vital Signs/Intake and Output Vital Signs (last 24 hours): Temp Pulse Resp BP Pulse Ox 98.1 F 100 H 19 94/64 L 100 12/02/18 20:00 12/02/18 21:00 12/02/18 21:00 12/02/18 19:42 12/02/18 14:04 Intake and Output: 12/02/18 12/03/18 18:59 06:59 Intake Total 980 490 Output Total 0 500 Balance 980 -10 - Medications Medications: Current Medications Acetaminophen/Codeine Phosphate (Tylenol/Codeine 300 Mg/30 Mg) 2 ea PO Q4 PRN PRN Reason: pain Last Admin: 12/02/18 17:39 Dose: 2 ea Albuterol (Ventolin Hfa 90 Mcg/Actuation (8 G)) 1 puff INH RQ6 PRN PRN Reason: Shortness of Breath Albuterol/Ipratropium (Duoneb 3 Mg/0.5 Mg (3 Ml) Ud) 3 ml IH RQ6 [facility] Last Admin: 12/02/18 20:01 Dose: Not Given Calcium/Vitamin D (Oyster Shell Calcium/Vitamin D 500 Mg-200 Iu) 1 tab PO BID [facility] Last Admin: 12/02/18 17:38 Dose: 1 tab Clonazepam (Klonopin) 1 mg PO BID [facility] Last Admin: 12/02/18 17:38 Dose: 1 mg Enoxaparin Sodium (Lovenox) 45 mg SC Q12H [facility] Last Admin: 12/02/18 11:31 Dose: 45 mg Famotidine (Pepcid) 20 mg PO BID [facility] Last Admin: 12/02/18 17:38 Dose: 20 mg Cefazolin Sodium 500 mg/ (Sodium Chloride) 50 mls @ 100 mls/hr IVPB Q8H [facility]; Protocol Last Admin: 12/02/18 20:18 Dose: 100 mls/hr Sodium Chloride (Sodium Chloride 0.9%) 1,000 mls @ 150 mls/hr IV .Q6H40M [facility] Last Admin: 12/02/18 08:46 Dose: 150 mls/hr Potassium Chloride (K-Dur 20 Meq Er Tab) 20 meq PO DAILY [facility] Last Admin: 12/02/18 11:13 Dose: 20 meq Silver Sulfadiazine (Silvadene 1% 20 Gm) 8 ea TOP BID [facility] Last Admin: 12/02/18 17:38 Dose: 1 appl - Labs Labs: 12/02/18 06:09 12/01/18 17:30 PT 23.3 SECONDS (9.7-12.2) H 11/30/18 17:35 INR 2.1 11/30/18 17:35 APTT 41 SECONDS (21-34) H 11/30/18 17:35
--- NOTE | 2018-12-03 01:51 | PN ---
DATE: 12/02/2018 SUBJECTIVE: Kym Conde is in ICU. She is more alert. She is not short of breath. Her CT angio is negative for DVT but she has severe pulmonary hypertension. No fever. She has not stopped smoking. PHYSICAL EXAMINATION: VITAL SIGNS: Blood pressure is 94/64, pulse 100, respiratory rate 19, temperature 98.1. LUNGS: Decreased air entry. CVS: S1, S2. Regular. ABDOMEN: Soft. ASSESSMENT: 1. Pulmonary hypertension with enlarged right heart. 2. Chronic obstructive pulmonary disease. 3. Anemia. 4. Pancreatic insufficiency. 5. Anxiety and depression. PLAN: Continue current medications. The patient was diagnosed with being DVT recently at [facility] [place] and she is supposed to be on Eliquis outside. The plan, admit. Details orders are written. Seen and examined. Connor Baker MD
[2018-12-03] MEDS: Albuterol-Ipratrop 3 mg / 0.5 (3 ml) UD IH SCH ×4 (02:22→20:14)
[2018-12-03] MEDS: Acetaminophen-Codeine 300/30 mg Tab PO PRN ×2 (04:21→12:09)
[2018-12-03] MEDS: Potassium Chloride 20 mEq ER Tab PO SCH (10:22)
[2018-12-03] MEDS: Calcium-Vit D 500 mg-200 Units Tab UD PO SCH ×2 (10:23→18:08)
[2018-12-03] MEDS: Silver Sulfadiazine 1% Cream (20 gm) TOP SCH ×2 (10:23→18:09)
[2018-12-03] MEDS: Enoxaparin 60 mg Syringe SC SCH ×2 (10:29→23:00)
[2018-12-03] MEDS: LIPASE/PROTEASE/AMYLASE 4,200 U ECC PO SCH ×3 (10:30→18:09)
[2018-12-03] MEDS ORDERED: Morphine 4 MG/ML VIAL IVP PRN (13:07)
--- NOTE | 2018-12-03 17:43 | CP.PCM.PN ---
Subjective - Date & Time of Evaluation Date of Evaluation: 12/03/18 Time of Evaluation: 08:00 - Subjective Subjective: patient seen and examined Patient states breathing is much improved Afebrile Denies any chest pain Being treated for cellulitis, DVT and COPD Objective - Vital Signs/Intake and Output Vital Signs (last 24 hours): Temp Pulse Resp BP Pulse Ox 98.2 F 78 16 108/49 L 98 12/03/18 16:00 12/03/18 16:00 12/03/18 16:00 12/03/18 16:00 12/03/18 16:00 Intake and Output: 12/03/18 12/03/18 06:59 18:59 Intake Total 490 530 Output Total 500 Balance -10 530 - Medications Medications: Current Medications Acetaminophen/Codeine Phosphate (Tylenol/Codeine 300 Mg/30 Mg) 2 ea PO Q4 PRN PRN Reason: pain Last Admin: 12/03/18 12:09 Dose: 2 ea Albuterol (Ventolin Hfa 90 Mcg/Actuation (8 G)) 1 puff INH RQ6 PRN PRN Reason: Shortness of Breath Albuterol/Ipratropium (Duoneb 3 Mg/0.5 Mg (3 Ml) Ud) 3 ml IH RQ6 [facility] Last Admin: 12/03/18 12:15 Dose: 3 ml Calcium/Vitamin D (Oyster Shell Calcium/Vitamin D 500 Mg-200 Iu) 1 tab PO BID [facility] Last Admin: 12/03/18 10:23 Dose: 1 tab Clonazepam (Klonopin) 1 mg PO BID [facility] Last Admin: 12/03/18 10:23 Dose: 1 mg Enoxaparin Sodium (Lovenox) 45 mg SC Q12H [facility] Last Admin: 12/03/18 10:29 Dose: 45 mg Famotidine (Pepcid) 20 mg IVP Q12 [facility] Cefazolin Sodium 500 mg/ (Sodium Chloride) 50 mls @ 100 mls/hr IVPB Q8H [facility]; Protocol Last Admin: 12/03/18 11:38 Dose: 100 mls/hr Sodium Chloride (Sodium Chloride 0.9%) 1,000 mls @ 150 mls/hr IV .Q6H40M [facility] Last Admin: 12/02/18 08:46 Dose: 150 mls/hr Morphine Sulfate (Morphine) 2 mg IVP Q6 PRN PRN Reason: Pain, severe (8-10) Last Admin: 12/03/18 13:26 Dose: 2 mg Potassium Chloride (K-Dur 20 Meq Er Tab) 20 meq PO DAILY [facility] Last Admin: 12/03/18 10:22 Dose: 20 meq Silver Sulfadiazine (Silvadene 1% 20 Gm) 8 ea TOP BID [facility] Last Admin: 12/03/18 10:23 Dose: 1 appl - Labs Labs: 12/02/18 06:09 12/01/18 17:30 PT 23.3 SECONDS (9.7-12.2) H 11/30/18 17:35 INR 2.1 11/30/18 17:35 APTT 41 SECONDS (21-34) H 11/30/18 17:35 - Head Exam Head Exam: ATRAUMATIC, NORMOCEPHALIC - ENT Exam ENT Exam: Mucous Membranes Moist - Neck Exam Neck Exam: Normal Inspection - Respiratory Exam Respiratory Exam: Clear to Ausculation Bilateral - Cardiovascular Exam Cardiovascular Exam: REGULAR RHYTHM - GI/Abdominal Exam GI & Abdominal Exam: Soft, Normal Bowel Sounds Assessment and Plan (1) Chr obstructive pulmonary disease w/ acute lower respiratory infxn Assessment & Plan: continue nebulizer treatment Continue steroids for now IV antibiotics Culture so far negative Status: Acute (2) DVT (deep venous thrombosis) Status: Acute (3) Cellulitis Status: Acute (4) Hyponatremia Status: Acute
--- NOTE | 2018-12-03 21:02 | CP.PCM.PN ---
Subjective - Date & Time of Evaluation Date of Evaluation: 12/03/18 Time of Evaluation: 07:00 - Subjective Subjective: dictated Objective - Vital Signs/Intake and Output Vital Signs (last 24 hours): Temp Pulse Resp BP Pulse Ox 98.3 F 78 16 108/49 L 98 12/03/18 20:00 12/03/18 16:00 12/03/18 16:00 12/03/18 16:00 12/03/18 20:00 Intake and Output: 12/03/18 12/04/18 18:59 06:59 Intake Total 770 Balance 770 - Medications Medications: Current Medications Acetaminophen/Codeine Phosphate (Tylenol/Codeine 300 Mg/30 Mg) 2 ea PO Q4 PRN PRN Reason: pain Last Admin: 12/03/18 12:09 Dose: 2 ea Albuterol (Ventolin Hfa 90 Mcg/Actuation (8 G)) 1 puff INH RQ6 PRN PRN Reason: Shortness of Breath Albuterol/Ipratropium (Duoneb 3 Mg/0.5 Mg (3 Ml) Ud) 3 ml IH RQ6 [facility] Last Admin: 12/03/18 20:14 Dose: 3 ml Calcium/Vitamin D (Oyster Shell Calcium/Vitamin D 500 Mg-200 Iu) 1 tab PO BID [facility] Last Admin: 12/03/18 18:08 Dose: Not Given Clonazepam (Klonopin) 1 mg PO BID [facility] Last Admin: 12/03/18 18:08 Dose: Not Given Enoxaparin Sodium (Lovenox) 45 mg SC Q12H [facility] Last Admin: 12/03/18 10:29 Dose: 45 mg Famotidine (Pepcid) 20 mg IVP Q12 [facility] Last Admin: 12/03/18 18:05 Dose: 20 mg Cefazolin Sodium 500 mg/ (Sodium Chloride) 50 mls @ 100 mls/hr IVPB Q8H [facility]; Protocol Last Admin: 12/03/18 11:38 Dose: 100 mls/hr Sodium Chloride (Sodium Chloride 0.9%) 1,000 mls @ 150 mls/hr IV .Q6H40M [facility] Last Admin: 12/02/18 08:46 Dose: 150 mls/hr Morphine Sulfate (Morphine) 2 mg IVP Q4 PRN PRN Reason: moderate to severe pain Potassium Chloride (K-Dur 20 Meq Er Tab) 20 meq PO DAILY [facility] Last Admin: 12/03/18 10:22 Dose: 20 meq Silver Sulfadiazine (Silvadene 1% 20 Gm) 8 ea TOP BID [facility] Last Admin: 12/03/18 18:09 Dose: 1 appl - Labs Labs: 12/02/18 06:09 12/01/18 17:30 PT 23.3 SECONDS (9.7-12.2) H 11/30/18 17:35 INR 2.1 11/30/18 17:35 APTT 41 SECONDS (21-34) H 11/30/18 17:35
--- NOTE | 2018-12-03 23:25 | CP.PCM.PN ---
Subjective - Date & Time of Evaluation Date of Evaluation: 12/03/18 Time of Evaluation: 23:24 - Subjective Subjective: Patient seen and evaluated this am Offers no complaints Looks better c/w yesterday Pulm HTN Ac on Chronic diastolic CHF Objective - Vital Signs/Intake and Output Vital Signs (last 24 hours): Temp Pulse Resp BP Pulse Ox 98.3 F 78 16 108/49 L 98 12/03/18 20:00 12/03/18 16:00 12/03/18 16:00 12/03/18 16:00 12/03/18 20:00 Intake and Output: 12/03/18 12/04/18 18:59 06:59 Intake Total 770 Balance 770 - Medications Medications: Current Medications Acetaminophen/Codeine Phosphate (Tylenol/Codeine 300 Mg/30 Mg) 2 ea PO Q4 PRN PRN Reason: pain Last Admin: 12/03/18 12:09 Dose: 2 ea Albuterol (Ventolin Hfa 90 Mcg/Actuation (8 G)) 1 puff INH RQ6 PRN PRN Reason: Shortness of Breath Albuterol/Ipratropium (Duoneb 3 Mg/0.5 Mg (3 Ml) Ud) 3 ml IH RQ6 [facility] Last Admin: 12/03/18 20:14 Dose: 3 ml Calcium/Vitamin D (Oyster Shell Calcium/Vitamin D 500 Mg-200 Iu) 1 tab PO BID [facility] Last Admin: 12/03/18 18:08 Dose: Not Given Clonazepam (Klonopin) 1 mg PO BID [facility] Last Admin: 12/03/18 18:08 Dose: Not Given Enoxaparin Sodium (Lovenox) 45 mg SC Q12H [facility] Last Admin: 12/03/18 23:00 Dose: 45 mg Famotidine (Pepcid) 20 mg IVP Q12 [facility] Last Admin: 12/03/18 22:56 Dose: Not Given Cefazolin Sodium 500 mg/ (Sodium Chloride) 50 mls @ 100 mls/hr IVPB Q8H [facility]; Protocol Last Admin: 12/03/18 20:00 Dose: 100 mls/hr Sodium Chloride (Sodium Chloride 0.9%) 1,000 mls @ 150 mls/hr IV .Q6H40M [facility] Last Admin: 12/02/18 08:46 Dose: 150 mls/hr Morphine Sulfate (Morphine) 2 mg IVP Q4 PRN PRN Reason: moderate to severe pain Last Admin: 12/03/18 22:56 Dose: 2 mg Potassium Chloride (K-Dur 20 Meq Er Tab) 20 meq PO DAILY [facility] Last Admin: 12/03/18 10:22 Dose: 20 meq Silver Sulfadiazine (Silvadene 1% 20 Gm) 8 ea TOP BID [facility] Last Admin: 12/03/18 18:09 Dose: 1 appl - Labs Labs: 12/02/18 06:09 12/01/18 17:30 PT 23.3 SECONDS (9.7-12.2) H 11/30/18 17:35 INR 2.1 11/30/18 17:35 APTT 41 SECONDS (21-34) H 11/30/18 17:35
[2018-12-04] MEDS: Acetaminophen-Codeine 300/30 mg Tab PO PRN (00:03)
--- NOTE | 2018-12-04 01:26 | CON ---
DATE: 12/03/2018 CHIEF COMPLIANT AND REASON FOR CONSULTATION: The patient is referred by Dr. Baker as the patient has history of depression and anxiety as well as history of alcohol abuse in the past. HISTORY OF PRESENT ILLNESS: This is a case of 58-year-old female who came to emergency room complaining of bilateral leg swelling associated with wounds and drainage. The patient was referred to this doctor as the patient has history of depression and anxiety. The patient currently admitted in ICU where she has been complaining of increasing abdominal pain and has been asking more morphine and now the pain medication. The patient has been followed by Dr. Baker and taking Klonopin as an outpatient 1 mg b.i.d., but today she states that she has severe abdominal pain and asking more morphine. Review of her records, I did see her in 12/2016, she was admitted for abdominal pain and has history of recurrent pancreatitis and history of alcohol abuse in the past. Her lipase and amylase levels were about 1000 at that time. The patient states that she has not drank for a long time, but has been feeling depressed. She also states she sees Dr. Funez for pain management. Today when seen, the patient was given morphine 2 mg IV every 6 hours and states that it is not helping her and she wants Tylenol and asking for more morphine. The last time, she was admitted when I saw her in consult she was getting morphine 2 mg every 3-4 hours which did gave her some relief. The patient also using Klonopin 1 mg b.i.d.;when told that she cannot take the Klonopin while taking morphine. The patient was screaming in the ICU and asking for medication. PAST PSYCHIATRIC HISTORY: History of depression and anxiety and history related to chronic pain from pancreatitis. MEDICAL HISTORY: History of COPD, gallbladder history of pancreatitis, pneumonia, history of weight loss, history of cholecystectomy in the past. DRUG AND ALCOHOL HISTORY: The patient is a smoker, has history of alcohol abuse in the past. She denies having drank in a longtime. ALLERGIES: NO KNOWN ALLERGIES. PSYCHOSOCIAL HISTORY: The patient is not working. LIST OF MEDICATIONS: Includes, cefazolin, DuoNeb, Klonopin 1 mg b.i.d., Lovenox, morphine 2 mg IV every 6 p.r.n. The patient also on sulfadiazine and Ventolin. PHYSICAL EXAMINATION: VITAL SIGNS: Temperature is 98.2, pulse rate 78, blood pressure 108/49, respirations 16, and oxygen saturation 98%. According to the nurse, the patient was found with a bag of medication near her bed and the patient has multiple medications with it. LABORATORY DATA: WBC 7.5, H and H are 9.4 and 29.5. Her sodium is now 129, BUN is 5, creatinine is 0.5. Urine osmolality is 136. REVIEW OF SYSTEMS: GENERAL: Cachectic looking female, seen in her bed, complaining of pain, oriented x3, but still somatic. The patient asking for more pain medications. SKIN: No diaphoresis. HEENT: No headache. No dizziness. NECK: Supple. RESPIRATORY: Mild respiratory distress secondary to pain. CARDIOVASCULAR: No chest pain. GASTROINTESTINAL: Complaints of severe abdominal pain with no nausea and no vomiting. EXTREMITIES: The patient moves extremities. MUSCULOSKELETAL: Feels weak. NEUROLOGIC: Alert and oriented x3. GENITOURINARY: No dysuria. MENTAL STATUS EXAMINATION: Cachectic looking female, looks stated age, anxious, somatic, complaining of severe pain, asking for more pain medications. Affect is reactive. Speech is spontaneous. The patient is screaming at times in the ICU. Thought process is coherent. Thought content, the patient asking for more pain medication. No psychosis. No suicidal or homicidal ideation. Attention and memory seems to be fair. Insight and judgment fair. Impulse control is guarded. IMPRESSION: Depression, anxiety, as well as mood disorder, as well as history of pancreatitis, history of chronic obstructive pulmonary disease, history of open leg wounds, deep venous thrombosis, history of hyponatremia, as well as history of pleural effusion. PLAN AND RECOMMENDATIONS: The patient is seen. Medications reviewed. The patient is to continue Klonopin 1 mg b.i.d., but will hold if the patient is sedated. We will change little bit of her pain meds. We will give morphine 1 mg IVP x now and change the morphine pain medication to 2 mg IV every 4 hours p.r.n., this was the dosage was close to her last admission, We will do also amylase and lipase level. The patient had history of recurrent pancreatitis in the past. Also she states she has not drank in years. Continue treatment plan as outlined. Thank you very much for the consult. We will hold the SSRI for now as the patient has possible pancreatitis and as well as we will limit the use of Klonopin. Grant Adhikari MD MTDNubia
[2018-12-04] MEDS: Albuterol-Ipratrop 3 mg / 0.5 (3 ml) UD IH SCH ×4 (02:18→19:49)
--- NOTE | 2018-12-04 02:39 | PN ---
DATE: 12/03/2018 SUBJECTIVE: The patient is complaining of abdominal pain. The patient is anxious. She is restless. She was found by the nursing staff to be taking some unknown medications of home meds. The patient is anxious. She is restless and she is constantly complaining of abdominal pain. No nausea or vomiting. PHYSICAL EXAMINATION: VITAL SIGNS: Blood pressure 108/49, pulse 78, respiratory rate 16, temperature 98.2. LUNGS: Clear. No rales. No rhonchi. ABDOMEN: Soft. Positive epigastric tenderness. Bowel sounds are present. EXTREMITIES: Bilateral leg ulcers. CENTRAL NERVOUS SYSTEM: Awake, alert, and oriented x3. ASSESSMENT: 1. Abdominal pain in a patient with history of pancreatitis, pancreatic insufficiency. 2. Bilateral lower extremity ulcer with deep venous thrombosis, on blood thinner. 3. Anxiety and depression. 4. Anemia. 5. Pulmonary hypertension. PLAN: Continue morphine. GI eval. Monitor patient. Connor Baker MD
[2018-12-04 06:36] LABS: BASO % 0.3 % (0.0-2.0); LYMPH # 0.8 K/uL (1.0-4.3); LYMPH % 7.3 % (20.0-40.0); MEAN CELL VOLUME 82.4 fL (81.0-99.0); MEAN CORPUSCULAR HEMOGLOBIN 26.4 pg (27.0-31.0); MEAN CORPUSCULAR HGB CONC 32.1 g/dL (33.0-37.0); MEAN PLATELET VOLUME 7.3 fL (7.2-11.7); MONO # 0.5 K/uL (0.0-0.8); MONO % 4.7 % (0.0-10.0); NEUT # 9.2 K/uL (1.8-7.0); NEUT % 87.7 % (50.0-75.0); PLATELET COUNT 440 K/uL (130-400); RBC 3.78 Mil/uL (3.80-5.20); WHITE BLOOD COUNT 10.4 K/uL (4.8-10.8)
[2018-12-04 06:47] LABS: AMYLASE 285 U/L (30-110); LIPASE 1353 U/L (23-300)
[2018-12-04 06:51] LABS: BLOOD UREA NITROGEN 7 mg/dL (7-17); GFR NON-AFRICAN AMERICAN > 60
[2018-12-04] MEDS ORDERED: Dextrose 5%/0.45% NS 1,000 ML IV SCH (08:00)
[2018-12-04 08:33] LABS: ANISOCYTOSIS SLIGHT; LYMPHOCYTE 2 % (20-40); MONOCYTE 3 % (0-10); NEUTROPHIL 95 % (50-75); PLATELET ESTIMATE NORMAL (NORMAL); TOTAL CELLS COUNTED 100
[2018-12-04 08:34] LABS: HYPOCHROMIC SLIGHT; POLYCHROMIC SLIGHT; TARGET CELLS SLIGHT
[2018-12-04] MEDS: Potassium Ch 20mEq in D5-1/2NS 1,000 ML IV SCH ×2 (08:45→20:40)
--- NOTE | 2018-12-04 09:05 | CP.PCM.CON ---
History of Present Illness - History of Present Illness History of Present Illness: GI Consult Note for Dr. Olson HPI: 58 yo female with PMHx of DVT (admitted 11/30), chronic pancreatitis with pancreatic insufficiency, anxiety and depression, is being consulted due to abdominal pain. Patient is well known to Dr. Olson and has been seen frequently in [facility] for several years. When seen this morning, patient kept on saying she has had abdominal pain since 3am and has been demanding pain medications. Per records patient had 2mg morphine around the time of pain onset and patient states that it relieved her pain. Pain present middle of abdomen and does not radiate to back. Patient just placed on NPO diet now, but was served breakfast. Last BM was 2 days ago, unremarkable. Limited history and ROS due to patient's unwillingness to answer questions. Pertinent GI history: 09/19 CTAP: pelvic free fluid, peripancreatic fluid collections, cystic pancreatic lesions 09/[address] Olson: LA grade B reflux esophagitis, small haitus herina, antrum w/ erythematous mucosa, normal duodenum PMD: Dr. Baker PMHx: as stated above SocHx: smoker, denies EtOH use FHx: mother with HTN and GERD Home meds: tylenol, klonopin, pepcid, kdur, zenpep, ventolin, duoneb Inpatient meds: duonebs, lipase/protease/amylase, Ca/vitD, Kcl, ancef q8h, clonazepam, lovenox 45 q12, pepcid 20 mg IV q12, silver sulfadiazine topical Allergies: NKDA Review of Systems - Review of Systems Systems not reviewed;Unavailable: Uncooperative Past Patient History - Infectious Disease Hx of Infectious Diseases: None - Past Medical History & Family History Past Medical History?: Yes - Past Social History Smoking Status: Heavy Smoker > 10 Cigarettes Daily - CARDIAC Hx Cardiac Disorders: No - PULMONARY Hx Chronic Obstructive Pulmonary Disease (COPD): Yes Hx Pneumonia: Yes (CHILDHOOD) - NEUROLOGICAL Hx Neurological Disorder: No - HEENT Hx HEENT Problems: No - RENAL Hx Chronic Kidney Disease: No - ENDOCRINE/METABOLIC Hx Endocrine Disorders: No - HEMATOLOGICAL/ONCOLOGICAL Hx Blood Disorders: No Hx Blood Transfusions: Yes Hx Blood Transfusion Reaction: No Other/Comment: Hepatitis - INTEGUMENTARY Hx Dermatological Problems: No - MUSCULOSKELETAL/RHEUMATOLOGICAL Hx Falls: No - GASTROINTESTINAL Hx Gall Bladder Disease: Yes (Cholelithiasis) Hx Pancreatitis: Yes - GENITOURINARY/GYNECOLOGICAL Hx Genitourinary Disorders: No Other/Comment: 1989 oophorectomy - PSYCHIATRIC Hx Substance Use: No - SURGICAL HISTORY Hx Cholecystectomy: Yes - ANESTHESIA Hx Anesthesia: Yes Hx Anesthesia Reactions: No Hx Malignant Hyperthermia: No Meds Allergies/Adverse Reactions: Allergies Allergy/AdvReac Type Severity Reaction Status Date / Time No Known Allergies Allergy Verified 11/30/18 16:21 - Medications Medications: Current Medications Acetaminophen (Tylenol 325 Mg Supp) 325 mg [place] Q4 PRN PRN Reason: Fever >100.4 F Albuterol/Ipratropium (Duoneb 3 Mg/0.5 Mg (3 Ml) Ud) 3 ml IH RQ6 [facility] Last Admin: 12/04/18 08:36 Dose: 3 ml Calcium/Vitamin D (Oyster Shell Calcium/Vitamin D 500 Mg-200 Iu) 1 tab PO BID [facility] Last Admin: 12/03/18 18:08 Dose: Not Given Clonazepam (Klonopin) 1 mg PO BID [facility] Last Admin: 12/03/18 18:08 Dose: Not Given Enoxaparin Sodium (Lovenox) 45 mg SC Q12H [facility] Last Admin: 12/03/18 23:00 Dose: 45 mg Famotidine (Pepcid) 20 mg IVP Q12 [facility] Last Admin: 12/03/18 22:56 Dose: Not Given Potassium Chloride/Dextrose/Sod Cl (Potassium Chl 20 Meq In D5-1/2ns) 1,000 mls @ 100 mls/hr IV .Q10H [facility] Dextrose/Sodium Chloride (Dextrose 5%/0.9% Ns 1000 Ml) 1,000 mls @ 75 mls/hr IV .[id number] ONE Stop: 12/04/18 22:06 Morphine Sulfate (Morphine) 2 mg IVP Q3H PRN PRN Reason: moderate to severe pain Last Admin: 12/04/18 08:27 Dose: 2 mg Silver Sulfadiazine (Silvadene 1% 20 Gm) 8 ea TOP BID [facility] Last Admin: 12/03/18 18:09 Dose: 1 appl Physical Exam - Constitutional Appears: Agitated, Cachectic - Head Exam Head Exam: ATRAUMATIC, NORMAL INSPECTION - Eye Exam Eye Exam: EOMI, Normal appearance - Neck Exam Neck exam: Positive for: Normal Inspection - GI/Abdominal Exam GI & Abdominal Exam: Tenderness (epigastric area) - Neurological Exam Neurological exam: Alert - Psychiatric Exam Psychiatric exam: Anxious - Skin Skin Exam: Dry, Intact, Normal Color, Warm - Additional Findings Additional findings: Patient refused most of physical exam. Results - Vital Signs Recent Vital Signs: Last Vital Signs Temp 98 F 12/04/18 08:00 Pulse 74 12/04/18 08:00 Resp 18 12/04/18 08:00 BP 106/54 L 12/04/18 08:00 Pulse Ox 97 12/04/18 08:00 - Labs Result Diagrams: 12/04/18 06:26 12/04/18 06:24 Labs: Laboratory Results - last 24 hr 12/04/18 12/04/18 12/04/18 06:24 06:24 06:26 WBC 10.4 RBC 3.78 L Hgb 10.0 L Hct 31.1 L MCV 82.4 MCH 26.4 L MCHC 32.1 L RDW 16.0 H Plt Count 440 H MPV 7.3 Neut % (Auto) 87.7 H Lymph % (Auto) 7.3 L [place] % (Auto) 4.7 Eos % (Auto) 0.0 Baso % (Auto) 0.3 Neut # (Auto) 9.2 H Lymph # (Auto) 0.8 L [place] # (Auto) 0.5 Eos # (Auto) 0.0 Baso # (Auto) 0.0 Neutrophils % (Manual) 95 H Lymphocytes % (Manual) 2 L Monocytes % (Manual) 3 Platelet Estimate Normal Polychromasia Slight Hypochromasia (manual) Slight Anisocytosis (manual) Slight Target Cells Slight Sodium 129 L Potassium 4.8 Chloride 94 L Carbon Dioxide 31 H Anion Gap 9 L BUN 7 Creatinine 0.4 L Est GFR ( Amer) > 60 Est GFR (Non-Af Amer) > 60 Random Glucose 102 D Calcium 8.0 L Amylase 285 H D Lipase 1353 H Assessment & Plan - Assessment and Plan (Free Text) Assessment: 58 yo female with PMHx of DVT (admitted 11/30), chronic pancreatitis with pancreatic insufficiency, anxiety and depression, is being consulted due to abdominal pain. Chronic pancreatitis with pancreatic insufficiency -NPO except meds -start D5 NS at 75 cc/h, re-evaluate in 3 days (FridayDec 07) for possible discontinuation -discontinued order for NS at 150cc/hr -f/u lipase, amylase levels -f/u CA 19-9 and CEA levels especially in light of patient's weight loss (of unspecified quantity) -f/u official report of abdominal US done on 12/03 -continue with enzyme supplement lipase/protease/amylase -continue with pepcid 20 mg IV q12 -monitor CBC and CMP, ordered for tomorrow, 12/[address] Wesley Scott PGY1
--- NOTE | 2018-12-04 10:07 | US ---
Date of service: 12/03/2018 HISTORY: abdominal pain, hx of pancritis COMPARISON: Comparison is made to the previous CT of abdomen and pelvis dated 09/09/2017, previous CTA of the chest dated 12/01/2018 TECHNIQUE: Sonographic evaluation of the abdomen. FINDINGS: LIVER: Measures 15.2 cm. Heterogeneous and increased echogenicity of the liver parenchyma. This suspicious for foci of calcification in the liver with the largest focus measures 0.7 centimeter. No mass. No intrahepatic bile duct dilatation. GALLBLADDER: The gallbladder was removed COMMON BILE DUCT: Measures 9 mm. No stones. No dilatation. PANCREAS: Markedly heterogeneous and echogenic pancreas noted. The pancreas is partially obscured by overlying bowel gas. The possibility of pancreatic lesion is not totally excluded. RIGHT KIDNEY: Measures 8.4 x 4.1 x 4.8cm. Normal echogenicity. No calculus, mass, or hydronephrosis. LEFT KIDNEY: Measures 10.1 x 4.2 x 4.5cm. Normal echogenicity. No calculus, mass, or hydronephrosis. SPLEEN: Normal in size and contour. No mass. AORTA: No aneurysmal dilatation. IVC: Unremarkable. OTHER FINDINGS: There is small amount of ascites noted in the upper abdomen. IMPRESSION: Small ascites. Small 2 foci of calcification noted in the right liver lobe. Echogenic liver suggestive of fatty liver infiltration. Heterogeneous and echogenic pancreas partially visualized in this study. The possibility of pancreatic lesion is not totally excluded. If indicated further evaluation by dedicated CT of the abdomen is suggested. Preliminary report contains concordant findings was submitted by [facility] Radiology.
[2018-12-04] MEDS: Enoxaparin 60 mg Syringe SC SCH ×2 (10:32→22:40)
[2018-12-04] MEDS: LIPASE/PROTEASE/AMYLASE 4,200 U ECC PO SCH ×3 (10:34→17:55)
[2018-12-04] MEDS: Calcium-Vit D 500 mg-200 Units Tab UD PO SCH ×2 (10:35→19:49)
[2018-12-04] MEDS: Silver Sulfadiazine 1% Cream (20 gm) TOP SCH ×2 (10:36→17:56)
[2018-12-04] MEDS ORDERED: Iodixanol 320 MG/ML 100 ML BOTTLE IV ONE (12:26)
--- NOTE | 2018-12-04 12:38 | CP.PCM.PN ---
Subjective - Date & Time of Evaluation Date of Evaluation: 12/04/18 Time of Evaluation: 11:00 - Subjective Subjective: dictated Objective - Vital Signs/Intake and Output Vital Signs (last 24 hours): Temp Pulse Resp BP Pulse Ox 98 F 74 18 106/54 L 97 12/04/18 08:00 12/04/18 08:00 12/04/18 08:00 12/04/18 08:00 12/04/18 08:00 Intake and Output: 12/04/18 12/04/18 06:59 18:59 Intake Total 170 220 Output Total 50 20 Balance 120 200 - Medications Medications: Current Medications Acetaminophen (Tylenol 325 Mg Supp) 325 mg [place] Q4 PRN PRN Reason: Fever >100.4 F Albuterol/Ipratropium (Duoneb 3 Mg/0.5 Mg (3 Ml) Ud) 3 ml IH RQ6 [facility] Last Admin: 12/04/18 08:36 Dose: 3 ml Calcium/Vitamin D (Oyster Shell Calcium/Vitamin D 500 Mg-200 Iu) 1 tab PO BID [facility] Last Admin: 12/04/18 10:35 Dose: Not Given Clonazepam (Klonopin) 1 mg PO BID [facility] Last Admin: 12/04/18 10:36 Dose: Not Given Enoxaparin Sodium (Lovenox) 45 mg SC Q12H [facility] Last Admin: 12/04/18 10:32 Dose: 45 mg Famotidine (Pepcid) 20 mg IVP Q12 [facility] Last Admin: 12/04/18 10:29 Dose: 20 mg Potassium Chloride/Dextrose/Sod Cl (Potassium Chl 20 Meq In D5-1/2ns) 1,000 mls @ 100 mls/hr IV .Q10H [facility] Last Admin: 12/04/18 08:45 Dose: 100 mls/hr Dextrose/Sodium Chloride (Dextrose 5%/0.9% Ns 1000 Ml) 1,000 mls @ 75 mls/hr IV .[id number] ONE Stop: 12/04/18 22:06 Morphine Sulfate (Morphine) 2 mg IVP Q3H PRN PRN Reason: moderate to severe pain Last Admin: 12/04/18 08:27 Dose: 2 mg Silver Sulfadiazine (Silvadene 1% 20 Gm) 8 ea TOP BID [facility] Last Admin: 12/04/18 10:36 Dose: Not Given - Labs Labs: 12/04/18 06:26 12/04/18 06:24 PT 23.3 SECONDS (9.7-12.2) H 11/30/18 17:35 INR 2.1 11/30/18 17:35 APTT 41 SECONDS (21-34) H 11/30/18 17:35
--- NOTE | 2018-12-04 13:17 | CT ---
Date of service: 12/04/2018 PROCEDURE: CT Abdomen and Pelvis with contrast HISTORY: pancreatitis COMPARISON: 09/09/2017 TECHNIQUE: Contrast dose: 100 mL Visipaque 320 Radiation dose: Total exam DLP = 294.29 mGy-cm. This CT exam was performed using one or more of the following dose reduction techniques: Automated exposure control, adjustment of the mA and/or kV according to patient size, and/or use of iterative reconstruction technique. FINDINGS: LOWER THORAX: Trace right pleural effusion. No left pleural effusion. No infiltrate. Small hiatal hernia. LIVER: Normal size, contour and attenuation. Stable nonspecific 4 mm low-attenuation lesion in the posterior right hepatic lobe. No new mass. No biliary dilatation GALLBLADDER AND BILE DUCTS: Status post cholecystectomy PANCREAS: Ill-defined soft tissue and fluid attenuation material in the region of the body of the pancreas. Pancreatic head and tail appear grossly intact. This may reflect necrotic pancreatitis. Similar soft tissue and fluid attenuation material seen anterior and inferior to the pancreas and also intraperitoneal E in the left pericolic gutter. Nonspecific. 9 mm cystic mass in head of pancreas unchanged from prior examination. No other pancreatic mass identified no definite pancreatic ductal dilatation appreciated SPLEEN: Unremarkable. ADRENALS: Unremarkable. No mass. KIDNEYS AND URETERS: Unremarkable. No hydronephrosis. No solid mass. VASCULATURE: Unremarkable. No aortic aneurysm. There is atherosclerotic calcification of the abdominal aorta. A vena caval filter is noted. BOWEL: No bowel obstruction. Moderate retained feces. APPENDIX: Normal appendix. PERITONEUM: Extensive ascites. No pneumoperitoneum. LYMPH NODES: Unremarkable. No enlarged lymph nodes. BLADDER: Unremarkable. REPRODUCTIVE: Unremarkable uterus BONES: No acute fracture. OTHER FINDINGS: Generalized anasarca. IMPRESSION: Findings consistent with pancreatitis, possibly with pancreatic necrosis involving the body of the pancreas. Cystic mass in head of pancreas, 9 mm. Unchanged. Ill-defined soft tissue and fluid attenuation material anterior and inferior to the pancreas common nonspecific. Generalized ascites. Anasarca. Cholecystectomy. Small hiatal hernia.
[2018-12-04] MEDS: Dextrose 5%/0.9% NS 1,000 ML IV ONE ×2 (13:50→21:29)
--- NOTE | 2018-12-04 16:15 | CP.PCM.PN ---
Subjective - Date & Time of Evaluation Date of Evaluation: 12/04/18 Time of Evaluation: 15:00 - Subjective Subjective: Patient seen and examined Complaining of abdominal pain Breathing better Afebrile CAT scan of the abdomen consistent with pancreatitis Objective - Vital Signs/Intake and Output Vital Signs (last 24 hours): Temp Pulse Resp BP Pulse Ox 99 F 90 19 110/66 97 12/04/18 16:00 12/04/18 16:00 12/04/18 16:00 12/04/18 16:00 12/04/18 16:00 Intake and Output: 12/04/18 12/04/18 06:59 18:59 Intake Total 170 220 Output Total 50 20 Balance 120 200 - Medications Medications: Current Medications Acetaminophen (Tylenol 325 Mg Supp) 325 mg [place] Q4 PRN PRN Reason: Fever >100.4 F Albuterol/Ipratropium (Duoneb 3 Mg/0.5 Mg (3 Ml) Ud) 3 ml IH RQ6 [facility] Last Admin: 12/04/18 13:19 Dose: 3 ml Calcium/Vitamin D (Oyster Shell Calcium/Vitamin D 500 Mg-200 Iu) 1 tab PO BID [facility] Last Admin: 12/04/18 10:35 Dose: Not Given Clonazepam (Klonopin) 1 mg PO Q12 PRN PRN Reason: Anxiety Enoxaparin Sodium (Lovenox) 45 mg SC Q12H [facility] Last Admin: 12/04/18 10:32 Dose: 45 mg Famotidine (Pepcid) 20 mg IVP Q12 [facility] Last Admin: 12/04/18 10:29 Dose: 20 mg Potassium Chloride/Dextrose/Sod Cl (Potassium Chl 20 Meq In D5-1/2ns) 1,000 mls @ 100 mls/hr IV .Q10H [facility] Last Admin: 12/04/18 08:45 Dose: 100 mls/hr Dextrose/Sodium Chloride (Dextrose 5%/0.9% Ns 1000 Ml) 1,000 mls @ 75 mls/hr IV .[id number] ONE Stop: 12/04/18 22:06 Last Admin: 12/04/18 13:50 Dose: Not Given Morphine Sulfate (Morphine) 2 mg IVP Q3H PRN PRN Reason: moderate to severe pain Last Admin: 12/04/18 13:44 Dose: 2 mg Silver Sulfadiazine (Silvadene 1% 20 Gm) 8 ea TOP BID [facility] Last Admin: 12/04/18 10:36 Dose: Not Given - Labs Labs: 12/04/18 06:26 12/04/18 06:24 PT 23.3 SECONDS (9.7-12.2) H 11/30/18 17:35 INR 2.1 11/30/18 17:35 APTT 41 SECONDS (21-34) H 11/30/18 17:35 - Head Exam Head Exam: ATRAUMATIC - ENT Exam ENT Exam: Mucous Membranes Moist - Respiratory Exam Respiratory Exam: Clear to Ausculation Bilateral - Cardiovascular Exam Cardiovascular Exam: REGULAR RHYTHM Assessment and Plan (1) Chr obstructive pulmonary disease w/ acute lower respiratory infxn Assessment & Plan: Continue the nebulizer treatment Breathing better Status: Acute (2) DVT (deep venous thrombosis) Assessment & Plan: Continue anticoagulation No drop in H&H No bleeding noted on CAT scan of the abdomen Status: Acute (3) Cellulitis Status: Acute (4) Hyponatremia Status: Acute (5) Acute pancreatitis Status: Acute
--- NOTE | 2018-12-04 16:33 | PN ---
DATE: 12/04/2018 SUBJECTIVE: Kym Conde has worsening abdominal pain, nausea, vomiting, generalized weakness. No fever, no chills. Abdominal ultrasound does not show any acute findings. The patient is being seen by GI. No fever. Her sodium is being corrected, potassium has been corrected. Amylase and lipase are elevated. PHYSICAL EXAMINATION: VITAL SIGNS: Blood pressure 106/54, pulse 74, respiratory rate 18, temperature 98. LUNGS: Decreased air entry. CVS: S1, S2. Regular. ABDOMEN: Severe tenderness. ASSESSMENT: 1. Bilateral lower extremity wound cellulitis. 2. Acute on chronic pancreatitis. The patient's amylase and lipase are elevated, the abdomen is tender. We are getting a new CAT scan of abdomen and pelvis with intravenous contrast and gastrointestinal eval. In the meantime, the patient will be monitored. She is nothing by mouth. Intravenous fluids. Switch all her medicines to intravenous. 3. Anxiety and depression. PLAN: See detailed order written, seen, and examined. Connor Baker MD
--- NOTE | 2018-12-04 19:22 | PN ---
DATE: 12/04/2018 SUBJECTIVE: The patient is very much medication seeking. The patient is asking for more doses of morphine. The patient is made aware, she is only 95 pounds and taking Klonopin 1 mg every 12 hours and morphine 2 mg every 2 hours p.r.n. The patient has agreed to be taken off Klonopin standing and be put on p.r.n., and she can have her morphine for medication. The patient has been referred to be seen by SÁNCHEZ Bran. The patient has history of chronic pancreatitis and has elevated level of lipase which is 1353 and amylase was 285. The patient is very medication seeking. PHYSICAL EXAMINATION: VITAL SIGNS: Temperature 98, pulse 74, blood pressure 106/54, respirations 18, oxygen saturation is 97%. REVIEW OF SYSTEMS: GENERAL: The patient is alert, verbal, screaming, demanding for pain medication, trying to test limits with nurses. SKIN: No diaphoresis. HEENT: No headache. No dizziness. NECK: Supple. RESPIRATORY: No dyspnea. CARDIOVASCULAR: No chest pain. GASTROINTESTINAL: Complaining of moderate to severe abdominal pain despite taking morphine 2 mg IV every 3 hours p.r.n. EXTREMITIES: The patient moves extremities. MUSCULOSKELETAL: Feels weak. NEUROLOGIC: Alert, oriented x3. GENITOURINARY: No urinary problems. MENTAL STATUS EXAMINATION: Middle-aged female, is very cachectic, about 5 feet, weighs 95 pounds. The patient is anxious, somatic, screaming, demanding for more pain medications stating that the pain medication is almost 10/10 and the medicines are not helping. Affect is reactive. Speech is loud, at times demanding. Thought process is coherent. Thought content is very medication seeking. No psychosis. No suicidal or homicidal ideation. Attention and memory seem to be limited. Insight and judgment limited. Impulse control is guarded at this time. IMPRESSION: History of recurrent depression, anxiety as well as history of possible opiate dependence, chronic pancreatitis, history of cellulitis to the lower extremities, history of chronic obstructive pulmonary disease, abdominal pain. PLAN AND RECOMMENDATION: The patient seen. Meds reviewed. Discussed with the patient. We will change her Klonopin to 1 mg b.i.d. p.r.n. instead of standing. The patient is asking for more pain medication. For now, we will continue the morphine 2 mg IV every 3 hours p.r.n. The patient is made aware that we will give her pain medication but would try to monitor her closer to prevent respiratory depression especially with her very low weight. The patient is also followed by Gastroenterology, undergoing gastrointestinal workup. Grant Adhikari MD
--- NOTE | 2018-12-04 22:03 | CP.PCM.PN ---
Subjective - Date & Time of Evaluation Date of Evaluation: 12/04/18 Time of Evaluation: 20:15 - Subjective Subjective: Podiatry Progress Note for Dr. Cuba 58F seen at bedside for bilateral leg wounds. Patient is AAO x 3 and NAD. Denies ever having wounds like this before. Denies any further pedal complaints at this time. Denies any recent N/V/F/C/CP/SOB Objective - Vital Signs/Intake and Output Vital Signs (last 24 hours): Temp Pulse Resp BP Pulse Ox 99 F 90 19 110/66 97 12/04/18 16:00 12/04/18 16:00 12/04/18 16:00 12/04/18 16:00 12/04/18 16:00 Intake and Output: 12/04/18 12/05/18 18:59 06:59 Intake Total 320 Output Total 720 Balance -400 - Medications Medications: Current Medications Acetaminophen (Tylenol 325 Mg Supp) 325 mg NM Q4 PRN PRN Reason: Fever >100.4 F Albuterol/Ipratropium (Duoneb 3 Mg/0.5 Mg (3 Ml) Ud) 3 ml IH RQ6 [facility] Last Admin: 12/04/18 19:49 Dose: 3 ml Calcium/Vitamin D (Oyster Shell Calcium/Vitamin D 500 Mg-200 Iu) 1 tab PO BID [facility] Last Admin: 12/04/18 19:49 Dose: Not Given Clonazepam (Klonopin) 1 mg PO Q12 PRN PRN Reason: Anxiety Enoxaparin Sodium (Lovenox) 45 mg SC Q12H [facility] Last Admin: 12/04/18 10:32 Dose: 45 mg Famotidine (Pepcid) 20 mg IVP Q12 [facility] Last Admin: 12/04/18 21:18 Dose: 20 mg Potassium Chloride/Dextrose/Sod Cl (Potassium Chl 20 Meq In D5-1/2ns) 1,000 mls @ 100 mls/hr IV .Q10H [facility] Last Admin: 12/04/18 20:40 Dose: Not Given Dextrose/Sodium Chloride (Dextrose 5%/0.9% Ns 1000 Ml) 1,000 mls @ 75 mls/hr IV .[id number] ONE Stop: 12/04/18 22:06 Last Admin: 12/04/18 21:29 Dose: 75 mls/hr Morphine Sulfate (Morphine) 2 mg IVP Q3H PRN PRN Reason: moderate to severe pain Last Admin: 12/04/18 20:57 Dose: 2 mg Silver Sulfadiazine (Silvadene 1% 20 Gm) 8 ea TOP BID [facility] Last Admin: 12/04/18 17:56 Dose: Not Given - Labs Labs: 12/04/18 06:26 12/04/18 06:24 PT 23.3 SECONDS (9.7-12.2) H 11/30/18 17:35 INR 2.1 11/30/18 17:35 APTT 41 SECONDS (21-34) H 11/30/18 17:35 - Constitutional Appears: Well, Non-toxic, No Acute Distress - Extremities Exam Additional comments: LE focused exam: Vasc: DP/PT pulses fully palpable 2/4 b/l. Skin temperature warm to warm from proximal to distal. CFT < 3 seconds to all digits b/l. Minimal edema noted to b/l legs Neuro: Epicritic and protective sensation grossly intact b/l Derm: Multiple superficial ulcerations noted to b/l legs with erythema present. No drainage, no malodor, no other clinical signs of infection MSK: Pain on palpation to b/l legs. No gross deformities noted - Neurological Exam Neurological Exam: Alert, Awake, Oriented x3 - Psychiatric Exam Psychiatric exam: Normal Affect, Normal Mood Assessment and Plan - Assessment and Plan (Free Text) Assessment: 58F seen at bedside for bilateral leg wounds Plan: Patient seen and evaluated with Dr. Cuba Afebrile, absent leukocytosis Left leg wound cx: Enterococcous Faecalis B/l legs dressed with xeroform, DSD Ammonium lactate and silvadene ordered No plan for surgical intervention at this time Podiatry will continue to follow while patient in house
[2018-12-05] MEDS: Albuterol-Ipratrop 3 mg / 0.5 (3 ml) UD IH SCH ×4 (01:50→19:31)
[2018-12-05] MEDS: Dextrose 5%/0.9% NS 1,000 ML IV SCH ×2 (02:15→15:41)
[2018-12-05] MEDS: Potassium Ch 20mEq in D5-1/2NS 1,000 ML IV SCH ×2 (03:13→15:42)
[2018-12-05 07:35] LABS: BASO % 0.2 % (0.0-2.0); LYMPH # 0.9 K/uL (1.0-4.3); LYMPH % 7.7 % (20.0-40.0); MEAN CELL VOLUME 80.8 fL (81.0-99.0); MEAN CORPUSCULAR HEMOGLOBIN 25.9 pg (27.0-31.0); MEAN CORPUSCULAR HGB CONC 32.1 g/dL (33.0-37.0); MEAN PLATELET VOLUME 7.3 fL (7.2-11.7); MONO # 0.9 K/uL (0.0-0.8); MONO % 7.5 % (0.0-10.0); NEUT # 9.6 K/uL (1.8-7.0); NEUT % 84.6 % (50.0-75.0); NRBC % 0.1 % (0.0-2.0); RBC 2.73 Mil/uL (3.80-5.20); RED CELL DISTRIBUTION WIDTH 15.9 % (11.5-14.5); WHITE BLOOD COUNT 11.4 K/uL (4.8-10.8)
[2018-12-05 07:39] LABS: HEMOGLOBIN 7.1 g/dL (11.0-16.0); PLATELET COUNT 352 K/uL (130-400)
[2018-12-05 07:44] LABS: ALB/GLOB RATIO 0.9 (1.0-2.1); ALBUMIN 2.2 g/dL (3.5-5.0); ALT/SGPT 18 U/L (9-52); AMYLASE 274 U/L (30-110); AST/SGOT 29 U/L (14-36); BLOOD UREA NITROGEN 8 mg/dL (7-17); CALCIUM 7.8 mg/dl (8.6-10.4); GFR NON-AFRICAN AMERICAN > 60; LIPASE 1097 U/L (23-300)
[2018-12-05 08:48] LABS: MEAN CELL VOLUME 81.1 fL (81.0-99.0); MEAN CORPUSCULAR HGB CONC 32.1 g/dL (33.0-37.0); MEAN PLATELET VOLUME 7.1 fL (7.2-11.7); RBC 2.35 Mil/uL (3.80-5.20); RED CELL DISTRIBUTION WIDTH 15.7 % (11.5-14.5); WHITE BLOOD COUNT 11.6 K/uL (4.8-10.8)
[2018-12-05 08:55] LABS: HEMOGLOBIN 6.1 g/dL (11.0-16.0)
[2018-12-05 09:32] LABS: HDL CHOLESTEROL 37 mg/dL (30-70)
[2018-12-05 09:34] LABS: INR 1.4; PROTHROMBIN TIME 15.5 SECONDS (9.7-12.2)
[2018-12-05 09:42] LABS: LDL CHOLESTEROL 55 mg/dL (0-129)
[2018-12-05] MEDS ORDERED: Albuterol-Ipratrop 3 mg / 0.5 (3 ml) UD INH STA (09:43)
--- NOTE | 2018-12-05 09:44 | PCM.RRT ---
<Nikki Stephens - Last Filed: 12/05/18 09:47> [facility] [employer] Nurses Assessment - Situation Date: 12/05/18 Time [facility] was called: 09:10 [facility] [employer] Responder Arrival Time:: 09:11 I.Reason for [facility] [employer] - A) Acute Change in Patient: (Select all that apply): Acute change in SBP below (BP: 70/54) - Neurological Status (Select all that apply): Alert, Responsive, Oriented, Verbal, Follows Commands - Respiratory Oxygen Delivery Method: Nasal Cannula @L/min - Constitutional Appears: In Acute Distress Additional Comments: pale - Head Head Exam: ATRAUMATIC, NORMAL INSPECTION, NORMOCEPHALIC - Eyes Eye Exam: EOMI - Respiratory Exam Respiratory Exam: Decreased Breath Sounds, Respiratory Distress - Cardiovascular Exam Cardiovascular Exam: REGULAR RHYTHM, +S1, +S2 - GI/Abdominal Exam GI & Abdominal Exam: Distended, Guarding, Rigid, Tenderness - Neurological Exam Neurological Exam: Alert, Awake, Oriented x3 - Extremities Exam Extremities Exam: Full ROM Additional comments: superficial ulceration of left lateral malleolus superficial ulceration of right medial malleolus Plan - Assessment of Findings&Treatment Plan Assessment and Plan: Hypotension 2/2 suspected hypovolemic shock 2 units PRBC ordered stat - consent obtained by Attending Physician Hemoglobin decreased from 10 --> 6.[address] scan rec by ICU stat to determine location of bleed (likely due pancreatic necrosis) - pancreatic protocol ordered Consulted Dr. Small (Vasc Surgery) Consulted ID for ulceration (Dr. Dempsey) Hyponatremia work-up ordered Acute respiratory distress with history of COPD - ABG shock panel ordered, patient placed on BiPAP Patient placed on Primaxin for necrotic pancreas and bilateral LE ulcerations Patient transferred to ICU patient seen and case discussed with Attending Physician Nikki Stephens PGY1 <Camron Isbell - Last Filed: 12/05/18 19:59> [facility] [employer] Nurses Assessment - Vital Signs Vital Signs: Rapid Response Vital Sign Blood Pressure 80/54 Pulse Rate 115 Respiratory Rate 26 Temperature 99.0 F Oxygen Saturation 95 - Vital Signs at end of [facility] [employer] Vital Signs at end of [facility] [employer]: Rapid Response End Vital Sign Blood Pressure 105/77 Pulse Rate 130 Respiratory Rate 32 Temperature 97.7 F O2 Sat by Pulse Oximetry 99 Attending/Attestation - Attestation I have personally seen and examined this patient.: Yes I have fully participated in the care of the patient.: Yes I have reviewed all pertinent clinical information, including history, physical exam and plan: Yes
--- NOTE | 2018-12-05 10:08 | CP.PCM.CON ---
<Tiffany Dumont - Last Filed: 12/05/18 14:18> History of Present Illness - History of Present Illness History of Present Illness: Consult note for Dr. Small and Dr. Morales Consulted for Severe/necrotic Pancreatitis Patient is a 58 yr old female with PMH DVT (admitted 11/30), chronic pancreatitis with pancreatic insufficiency, anxiety and depression presenting with acute abdominal pain. Patient was initially admitted to [facility] for management of her lower extremity wounds/pain and was cared for in the ICU d/t acute SOB. Patient was subsequently stabilized and moved out of ICU. Overnight patient began to complain of new onset abdominal pain and had abrupt decrease in hgb. Patient was additionally hypotensive and tachycardic and MOBILITY ENGINEER was called. Upon transfer to the ICU there was concern for an acute hemorrhagic pancreatitis and Dr. Gamboa was consulted. Patient is awake and alert and able to answer simple questions. She is unable to provide further information due to bipap and difficulty breathing. Review of Systems - Review of Systems Systems not reviewed;Unavailable: Respiratory Distress Past Patient History - Infectious Disease Hx of Infectious Diseases: None - Past Medical History & Family History Past Medical History?: Yes - Past Social History Smoking Status: Heavy Smoker > 10 Cigarettes Daily - CARDIAC Hx Cardiac Disorders: No - PULMONARY Hx Chronic Obstructive Pulmonary Disease (COPD): Yes Hx Pneumonia: Yes (CHILDHOOD) - NEUROLOGICAL Hx Neurological Disorder: No - HEENT Hx HEENT Problems: No - RENAL Hx Chronic Kidney Disease: No - ENDOCRINE/METABOLIC Hx Endocrine Disorders: No - HEMATOLOGICAL/ONCOLOGICAL Hx Blood Disorders: No Hx Blood Transfusions: Yes Hx Blood Transfusion Reaction: No Other/Comment: Hepatitis - INTEGUMENTARY Hx Dermatological Problems: No - MUSCULOSKELETAL/RHEUMATOLOGICAL Hx Falls: No - GASTROINTESTINAL Hx Gall Bladder Disease: Yes (Cholelithiasis) Hx Pancreatitis: Yes - GENITOURINARY/GYNECOLOGICAL Hx Genitourinary Disorders: No Other/Comment: 1990 oophorectomy - PSYCHIATRIC Hx Substance Use: No - SURGICAL HISTORY Hx Cholecystectomy: Yes - ANESTHESIA Hx Anesthesia: Yes Hx Anesthesia Reactions: No Hx Malignant Hyperthermia: No Meds Allergies/Adverse Reactions: Allergies Allergy/AdvReac Type Severity Reaction Status Date / Time No Known Allergies Allergy Verified 11/30/18 16:21 - Medications Medications: Current Medications Acetaminophen (Tylenol 325 Mg Supp) 325 mg LA Q4 PRN PRN Reason: Fever >100.4 F Acetaminophen (Tylenol 650 Mg Supp) 650 mg LA ONCE PRN PRN Reason: pre-transfusion Albuterol/Ipratropium (Duoneb 3 Mg/0.5 Mg (3 Ml) Ud) 3 ml IH RQ6 [facility] Last Admin: 12/05/18 08:23 Dose: 3 ml Calcium/Vitamin D (Oyster Shell Calcium/Vitamin D 500 Mg-200 Iu) 1 tab PO BID [facility] Last Admin: 12/04/18 19:49 Dose: Not Given Clonazepam (Klonopin) 1 mg PO Q12 PRN PRN Reason: Anxiety Famotidine (Pepcid) 20 mg IVP Q12 [facility] Last Admin: 12/04/18 21:18 Dose: 20 mg Potassium Chloride/Dextrose/Sod Cl (Potassium Chl 20 Meq In D5-1/2ns) 1,000 mls @ 100 mls/hr IV .Q10H [facility] Last Admin: 12/05/18 03:13 Dose: Not Given Dextrose/Sodium Chloride (Dextrose 5%/0.9% Ns 1000 Ml) 1,000 mls @ 75 mls/hr IV .[id number] [facility] Last Admin: 12/05/18 02:15 Dose: Not Given Imipenem/Cilastatin Sodium 500 (mg/ Sodium Chloride) 100 mls @ 100 mls/hr IVPB Q6H [facility]; Protocol Lactic Acid (Lac-Hydrin 12% Lotion (225 G)) 0 gm EXT DAILY [facility] Morphine Sulfate (Morphine) 2 mg IVP Q3H PRN PRN Reason: moderate to severe pain Last Admin: 12/05/18 04:45 Dose: 2 mg Silver Sulfadiazine (Silvadene 1% 20 Gm) 8 ea TOP BID [facility] Last Admin: 12/04/18 17:56 Dose: Not Given Silver Sulfadiazine (Silvadene 1% 20 Gm) 0 ea TOP DAILY [facility] Physical Exam - Constitutional Appears: Non-toxic, In Acute Distress, Cachectic - Head Exam Head Exam: ATRAUMATIC, NORMOCEPHALIC - Eye Exam Eye Exam: EOMI - ENT Exam ENT Exam: Mucous Membranes Dry - Respiratory Exam Respiratory Exam: Accessory Muscle Use Additional comments: currently on BiPAP - Cardiovascular Exam Cardiovascular Exam: Tachycardia (105) - GI/Abdominal Exam GI & Abdominal Exam: Distended, Firm, Guarding (involuntary), Rigid, Tenderness - Extremities Exam Extremities exam: Negative for: calf tenderness - Neurological Exam Neurological exam: Alert, Oriented x3 - Psychiatric Exam Psychiatric exam: Normal Affect, Normal Mood - Skin Skin Exam: Dry, Intact, Normal Color, Warm Results - Vital Signs Recent Vital Signs: Last Vital Signs Temp 99.0 F 12/05/18 07:50 Pulse 109 H 12/05/18 07:50 Resp 20 12/05/18 07:50 BP 90/60 L 12/05/18 07:50 Pulse Ox 98 12/05/18 07:50 - Labs Result Diagrams: 12/05/18 08:34 12/05/18 09:18 Labs: Laboratory Results - last 24 hr 12/05/18 12/05/18 12/05/18 07:16 07:16 08:34 WBC 11.4 H 11.6 H RBC 2.73 L 2.35 L Hgb 7.1 L D 6.1 L* Hct 22.1 L 19.1 L MCV 80.8 L 81.1 MCH 25.9 L 26.0 L MCHC 32.1 L 32.1 L RDW 15.9 H 15.7 H Plt Count 352 303 MPV 7.3 7.1 L Neut % (Auto) 84.6 H Lymph % (Auto) 7.7 L [place] % (Auto) 7.5 Eos % (Auto) 0.0 Baso % (Auto) 0.2 Neut # (Auto) 9.6 H Lymph # (Auto) 0.9 L [place] # (Auto) 0.9 H Eos # (Auto) 0.0 Baso # (Auto) 0.0 PT INR APTT Sodium 128 L Potassium 4.5 Chloride 89 L Carbon Dioxide 37 H Anion Gap 6 L BUN 8 Creatinine 0.4 L Est GFR ( Amer) > 60 Est GFR (Non-Af Amer) > 60 POC Glucose (mg/dL) Random Glucose 94 Calcium 7.8 L Phosphorus 3.8 Magnesium 1.2 L Total Bilirubin 0.3 AST 29 ALT 18 Alkaline Phosphatase 78 Total Protein 4.6 L Albumin 2.2 L D Globulin 2.4 Albumin/Globulin Ratio 0.9 L Triglycerides Cholesterol LDL Cholesterol Direct HDL Cholesterol Amylase 274 H Lipase 1097 H Cortisol AM Sample Blood Type Antibody Screen 12/05/18 12/05/18 12/05/18 09:10 09:18 09:18 WBC RBC Hgb Hct MCV MCH MCHC RDW Plt Count MPV Neut % (Auto) Lymph % (Auto) [place] % (Auto) Eos % (Auto) Baso % (Auto) Neut # (Auto) Lymph # (Auto) [place] # (Auto) Eos # (Auto) Baso # (Auto) PT INR APTT Sodium Potassium Chloride Carbon Dioxide Anion Gap BUN Creatinine Est GFR ( Amer) Est GFR (Non-Af Amer) POC Glucose (mg/dL) 94 Random Glucose Calcium Phosphorus Magnesium Total Bilirubin AST ALT Alkaline Phosphatase Total Protein Albumin Globulin Albumin/Globulin Ratio Triglycerides Cholesterol LDL Cholesterol Direct HDL Cholesterol Amylase Lipase Cortisol AM Sample 23.3 H Blood Type A POSITIVE Antibody Screen Negative 12/05/18 12/05/18 09:18 09:23 WBC RBC Hgb Hct MCV MCH MCHC RDW Plt Count MPV Neut % (Auto) Lymph % (Auto) [place] % (Auto) Eos % (Auto) Baso % (Auto) Neut # (Auto) Lymph # (Auto) [place] # (Auto) Eos # (Auto) Baso # (Auto) PT 15.5 H INR 1.4 APTT 35 H Sodium Potassium Chloride Carbon Dioxide Anion Gap BUN Creatinine Est GFR ( Amer) Est GFR (Non-Af Amer) POC Glucose (mg/dL) Random Glucose Calcium Phosphorus Magnesium Total Bilirubin AST ALT Alkaline Phosphatase Total Protein Albumin Globulin Albumin/Globulin Ratio Triglycerides 92 D Cholesterol 96 LDL Cholesterol Direct 55 HDL Cholesterol 37 Amylase Lipase Cortisol AM Sample Blood Type Antibody Screen Assessment & Plan - Assessment and Plan (Free Text) Assessment: 58 yr old female PMH COPD presenting with severe abdominal pain Plan: Per Dr. Small -IVF -recommend consult to Dr. Morales, hepatobiliary surgeon -Dr. Small discussed patient with Dr. Morales who agreed to evaluate patient -d/w Dr. Small Per Dr. Gamboa aggressive IVF resuscitation PRBC as needed FFP if needed for INR/anticoagulation reversal, may consider Protamine for lovenox reversal Blood cultures if not already ordered ABG with lactate Pancreas CT does not appear to have arterial blush will f/u official read and compare with previous imaging Tiffany Dumont, PGY 1 - Date & Time Date: 12/05/18 Time: 10:08 <José Manuel Gamboa N - Last Filed: 12/05/18 15:54> Meds - Medications Medications: Current Medications Acetaminophen (Tylenol 325 Mg Supp) 325 mg LA Q4 PRN PRN Reason: Fever >100.4 F Acetaminophen (Tylenol 650 Mg Supp) 650 mg LA ONCE PRN PRN Reason: pre-transfusion Albuterol/Ipratropium (Duoneb 3 Mg/0.5 Mg (3 Ml) Ud) 3 ml IH RQ6 [facility] Last Admin: 12/05/18 13:31 Dose: 3 ml Calcium/Vitamin D (Oyster Shell Calcium/Vitamin D 500 Mg-200 Iu) 1 tab PO BID [facility] Last Admin: 12/05/18 12:00 Dose: Not Given Clonazepam (Klonopin) 1 mg PO Q12 PRN PRN Reason: Anxiety Famotidine (Pepcid) 20 mg IVP Q12 [facility] Last Admin: 12/05/18 11:58 Dose: 20 mg Hydromorphone HCl (Dilaudid) 0.5 mg IVP Q3H PRN PRN Reason: Pain, severe (8-10) Potassium Chloride/Dextrose/Sod Cl (Potassium Chl 20 Meq In D5-1/2ns) 1,000 mls @ 100 mls/hr IV .Q10H [facility] Last Admin: 12/05/18 03:13 Dose: Not Given Dextrose/Sodium Chloride (Dextrose 5%/0.9% Ns 1000 Ml) 1,000 mls @ 75 mls/hr IV .[id number] [facility] Last Admin: 12/05/18 02:15 Dose: Not Given Imipenem/Cilastatin Sodium 500 (mg/ Sodium Chloride) 100 mls @ 100 mls/hr IVPB Q6H [facility]; Protocol Last Admin: 12/05/18 11:57 Dose: 100 mls/hr Lactic Acid (Lac-Hydrin 12% Lotion (225 G)) 0 gm EXT DAILY [facility] Morphine Sulfate (Morphine) 2 mg IVP Q3H PRN PRN Reason: moderate to severe pain Last Admin: 12/05/18 04:45 Dose: 2 mg Silver Sulfadiazine (Silvadene 1% 20 Gm) 8 ea TOP BID [facility] Last Admin: 12/05/18 12:01 Dose: Not Given Silver Sulfadiazine (Silvadene 1% 20 Gm) 0 ea TOP DAILY [facility] Results - Vital Signs Recent Vital Signs: Last Vital Signs Temp 98 F 12/05/18 12:50 Pulse 95 H 12/05/18 13:32 Resp 20 12/05/18 13:21 BP 103/78 12/05/18 13:21 Pulse Ox 100 12/05/18 13:21 - Labs Result Diagrams: 12/05/18 08:34 12/05/18 09:18 Labs: Laboratory Results - last 24 hr 12/05/18 12/05/18 12/05/18 07:16 07:16 08:34 WBC 11.4 H 11.6 H RBC 2.73 L 2.35 L Hgb 7.1 L D 6.1 L* Hct 22.1 L 19.1 L MCV 80.8 L 81.1 MCH 25.9 L 26.0 L MCHC 32.1 L 32.1 L RDW 15.9 H 15.7 H Plt Count 352 303 MPV 7.3 7.1 L Neut % (Auto) 84.6 H Lymph % (Auto) 7.7 L [place] % (Auto) 7.5 Eos % (Auto) 0.0 Baso % (Auto) 0.2 Neut # (Auto) 9.6 H Lymph # (Auto) 0.9 L [place] # (Auto) 0.9 H Eos # (Auto) 0.0 Baso # (Auto) 0.0 Neutrophils % (Manual) 85 H Lymphocytes % (Manual) 9 L Monocytes % (Manual) 6 Platelet Estimate Normal Large Platelets Present Polychromasia Slight Hypochromasia (manual) Slight Poikilocytosis (manual Slight Anisocytosis (manual) Slight Target Cells Slight Tear Drop Cells Slight Ovalocytes Slight PT INR APTT Sodium 128 L Potassium 4.5 Chloride 89 L Carbon Dioxide 37 H Anion Gap 6 L BUN 8 Creatinine 0.4 L Est GFR ( Amer) > 60 Est GFR (Non-Af Amer) > 60 POC Glucose (mg/dL) Random Glucose 94 Serum Osmolality Lactic Acid Calcium 7.8 L Phosphorus 3.8 Magnesium 1.2 L Total Bilirubin 0.3 AST 29 ALT 18 Alkaline Phosphatase 78 Total Protein 4.6 L Albumin 2.2 L D Globulin 2.4 Albumin/Globulin Ratio 0.9 L Triglycerides Cholesterol LDL Cholesterol Direct HDL Cholesterol Amylase 274 H Lipase 1097 H Carcinoembryonic Ag 9.7 H CA 19-9 Antigen 3.4 CA 125 Antigen 167 H Cortisol AM Sample Urine Osmolality Ur Random Sodium Blood Type Antibody Screen 12/05/18 12/05/1819 09:10 09:18 09:18 WBC RBC Hgb Hct MCV MCH MCHC RDW Plt Count MPV Neut % (Auto) Lymph % (Auto) [place] % (Auto) Eos % (Auto) Baso % (Auto) Neut # (Auto) Lymph # (Auto) [place] # (Auto) Eos # (Auto) Baso # (Auto) Neutrophils % (Manual) Lymphocytes % (Manual) Monocytes % (Manual) Platelet Estimate Large Platelets Polychromasia Hypochromasia (manual) Poikilocytosis (manual Anisocytosis (manual) Target Cells Tear Drop Cells Ovalocytes PT INR APTT Sodium Potassium Chloride Carbon Dioxide Anion Gap BUN Creatinine Est GFR ( Amer) Est GFR (Non-Af Amer) POC Glucose (mg/dL) 94 Random Glucose Serum Osmolality Lactic Acid Calcium Phosphorus Magnesium Total Bilirubin AST ALT Alkaline Phosphatase Total Protein Albumin Globulin Albumin/Globulin Ratio Triglycerides Cholesterol LDL Cholesterol Direct HDL Cholesterol Amylase Lipase Carcinoembryonic Ag CA 19-9 Antigen CA 125 Antigen Cortisol AM Sample 23.3 H Urine Osmolality Ur Random Sodium Blood Type A POSITIVE Antibody Screen Negative 12/05/18 12/05/18 12/05/18 09:18 09:18 09:23 WBC RBC Hgb Hct MCV MCH MCHC RDW Plt Count MPV Neut % (Auto) Lymph % (Auto) [place] % (Auto) Eos % (Auto) Baso % (Auto) Neut # (Auto) Lymph # (Auto) [place] # (Auto) Eos # (Auto) Baso # (Auto) Neutrophils % (Manual) Lymphocytes % (Manual) Monocytes % (Manual) Platelet Estimate Large Platelets Polychromasia Hypochromasia (manual) Poikilocytosis (manual Anisocytosis (manual) Target Cells Tear Drop Cells Ovalocytes PT 15.5 H INR 1.4 APTT 35 H Sodium 130 L Potassium 4.2 Chloride 93 L Carbon Dioxide 34 H Anion Gap 8 L BUN 8 Creatinine 0.4 L Est GFR ( Amer) > 60 Est GFR (Non-Af Amer) > 60 POC Glucose (mg/dL) Random Glucose 93 Serum Osmolality 273 Lactic Acid Calcium 7.7 L Phosphorus Magnesium Total Bilirubin 0.3 AST 25 ALT 26 Alkaline Phosphatase 67 Total Protein 4.2 L Albumin 1.9 L Globulin 2.3 Albumin/Globulin Ratio 0.8 L Triglycerides 92 D Cholesterol 96 LDL Cholesterol Direct 55 HDL Cholesterol 37 Amylase Lipase Carcinoembryonic Ag CA 19-9 Antigen CA 125 Antigen Cortisol AM Sample Urine Osmolality Ur Random Sodium Blood Type Antibody Screen 12/05/18 12/05/18 09:45 12:15 WBC RBC Hgb Hct MCV MCH MCHC RDW Plt Count MPV Neut % (Auto) Lymph % (Auto) [place] % (Auto) Eos % (Auto) Baso % (Auto) Neut # (Auto) Lymph # (Auto) [place] # (Auto) Eos # (Auto) Baso # (Auto) Neutrophils % (Manual) Lymphocytes % (Manual) Monocytes % (Manual) Platelet Estimate Large Platelets Polychromasia Hypochromasia (manual) Poikilocytosis (manual Anisocytosis (manual) Target Cells Tear Drop Cells Ovalocytes PT INR APTT Sodium Potassium Chloride Carbon Dioxide Anion Gap BUN Creatinine Est GFR ( Amer) Est GFR (Non-Af Amer) POC Glucose (mg/dL) Random Glucose Serum Osmolality Lactic Acid 0.6 L Calcium Phosphorus Magnesium Total Bilirubin AST ALT Alkaline Phosphatase Total Protein Albumin Globulin Albumin/Globulin Ratio Triglycerides Cholesterol LDL Cholesterol Direct HDL Cholesterol Amylase Lipase Carcinoembryonic Ag CA 19-9 Antigen CA 125 Antigen Cortisol AM Sample Urine Osmolality 652 Ur Random Sodium 152 Blood Type Antibody Screen Assessment & Plan - Assessment and Plan (Free Text) Assessment: Asked to see patient by Dr Garcia of general surgery Evaluated patient at bedside with resident Dr Dumont. Patient on Bipap, alert and appropriate. Agree with physical exam. Abdomen firm and protuberant, moderately tender on deep palpation. Labs as noted. CT scan reviewed with government relations analyst and resident. Patient has a large retroperitoneal hematoma. There is no arterial blush. Patient HR 105, BP 100/60 after 1 unit PRBC and FFP. No indication for surgery at present. He is at risk for compartment syndrome as she is resuscitated. She needs a worley and hourly monitoring of her urine output. She needs her coag's normalized. She received FFP and protamine sulfate. If she drops her BP and/or urine output, she is high risk for compartment syndrome. If so, she needs abdominal fasciotomy. Given her pancreatic necrosis, she is also at risk for infection. However no evidence of infection at present She will receive dilaudid for pain Will follow her closely
[2018-12-05 10:10] LABS: OSMOLALITY,URINE 652 mosm/kg (300-1000)
[2018-12-05] MEDS ORDERED: Iodixanol 320 MG/ML 100 ML BOTTLE IV ONE (10:13)
--- NOTE | 2018-12-05 10:26 | CP.PCM.PN ---
Subjective - Date & Time of Evaluation Date of Evaluation: 12/05/18 Time of Evaluation: 09:35 - Subjective Subjective: RETAIL SALESPERSON NOTES Upon revieweing today labs noted a big drop in hgb from 10.1- 7.1 repeat done hgb 6.1 in 30 minuts patient seen and examined at bed side , awake, alert, taycardic and tachypnic,pale abdomen slightly distended and + tenderness to the RUQ and mid abdomen Objective - Vital Signs/Intake and Output Vital Signs (last 24 hours): Temp Pulse Resp BP Pulse Ox 99.0 F 109 H 20 90/60 L 98 12/05/18 07:50 12/05/18 07:50 12/05/18 07:50 12/05/18 07:50 12/05/18 07:50 Intake and Output: 12/05/18 12/05/18 06:59 18:59 Intake Total 300 Balance 300 - Medications Medications: Current Medications Acetaminophen (Tylenol 325 Mg Supp) 325 mg [place] Q4 PRN PRN Reason: Fever >100.4 F Acetaminophen (Tylenol 650 Mg Supp) 650 mg [place] ONCE PRN PRN Reason: pre-transfusion Albuterol/Ipratropium (Duoneb 3 Mg/0.5 Mg (3 Ml) Ud) 3 ml IH RQ6 [facility] Last Admin: 12/05/18 08:23 Dose: 3 ml Calcium/Vitamin D (Oyster Shell Calcium/Vitamin D 500 Mg-200 Iu) 1 tab PO BID [facility] Last Admin: 12/04/18 19:49 Dose: Not Given Clonazepam (Klonopin) 1 mg PO Q12 PRN PRN Reason: Anxiety Famotidine (Pepcid) 20 mg IVP Q12 [facility] Last Admin: 12/04/18 21:18 Dose: 20 mg Potassium Chloride/Dextrose/Sod Cl (Potassium Chl 20 Meq In D5-1/2ns) 1,000 mls @ 100 mls/hr IV .Q10H [facility] Last Admin: 12/05/18 03:13 Dose: Not Given Dextrose/Sodium Chloride (Dextrose 5%/0.9% Ns 1000 Ml) 1,000 mls @ 75 mls/hr IV .[id number] [facility] Last Admin: 12/05/18 02:15 Dose: Not Given Imipenem/Cilastatin Sodium 500 (mg/ Sodium Chloride) 100 mls @ 100 mls/hr IVPB Q6H [facility]; Protocol Lactic Acid (Lac-Hydrin 12% Lotion (225 G)) 0 gm EXT DAILY [facility] Morphine Sulfate (Morphine) 2 mg IVP Q3H PRN PRN Reason: moderate to severe pain Last Admin: 12/05/18 04:45 Dose: 2 mg Silver Sulfadiazine (Silvadene 1% 20 Gm) 8 ea TOP BID [facility] Last Admin: 12/04/18 17:56 Dose: Not Given Silver Sulfadiazine (Silvadene 1% 20 Gm) 0 ea TOP DAILY [facility] - Labs Labs: 12/05/18 08:34 12/05/18 07:16 PT 15.5 SECONDS (9.7-12.2) H 12/05/18 09:23 INR 1.4 12/05/18 09:23 APTT 35 SECONDS (21-34) H 12/05/18 09:23 Assessment and Plan - Assessment and Plan (Free Text) Assessment: 58 yr old female with pmhx of COPD, Depression,chroninc , Pancreatitis admitted with DVT and lower extremity cellulitis todays hgb drops from 101- 6.1 and patient symptomatic with tachycardia and hypotension c/o abdominal pain recent CT- Findings consistent with pancreatitis, possibly with pancreatic necrosis involving the body of the pancreas. Cystic mass in head of pancreas, 9 mm. Unchanged. Ill-defined soft tissue and fluid attenuation material anterior and inferior to the pancreas common nonspecific. Generalized ascites. Anasarca . Cholecystectomy. A/P acute anemia , possible from bleeding hypotension tachycardia DVT chronic pancreatitis plan NSs bolus stat type and screen transfuse 2 unto of PRBC ICU steel roller contacted for possible transfer to ICU TILE SHADER Called for further management The above plan discussed with Dr. Baker
--- NOTE | 2018-12-05 10:32 | RAD ---
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 FINDINGS: LUNGS: The patient is sharply rotated to the right limiting the interpretation, particularly at the bilateral hilar regions. No airspace disease appreciated bilaterally. PLEURA: No significant pleural effusion identified, no pneumothorax apparent. CARDIOVASCULAR: No aortic atherosclerotic calcification present. Normal cardiac size. No pulmonary vascular congestion. OSSEOUS STRUCTURES: No significant abnormalities. VISUALIZED UPPER ABDOMEN: Inferior vena cava filter noted at the right parasagittal abdomen with surgical clips noted right upper quadrant abdomen. OTHER FINDINGS: None. IMPRESSION: Resolution of prior right pleural effusion. No airspace disease bilaterally or pulmonary vascular congestion.
[2018-12-05 10:34] LABS: ANISOCYTOSIS SLIGHT; LYMPHOCYTE 9 % (20-40); MONOCYTE 6 % (0-10); NEUTROPHIL 85 % (50-75); PLATELET ESTIMATE NORMAL (NORMAL); POIKILOCYTOSIS SLIGHT; TOTAL CELLS COUNTED 100
[2018-12-05 10:35] LABS: HYPOCHROMIC SLIGHT; LARGE PLATELETS PRESENT; OVALOCYTES SLIGHT; POLYCHROMIC SLIGHT; TARGET CELLS SLIGHT; TEARDROP CELLS SLIGHT
[2018-12-05 11:31] LABS: ALB/GLOB RATIO 0.8 (1.0-2.1); ALBUMIN 1.9 g/dL (3.5-5.0); ALT/SGPT 26 U/L (9-52); AST/SGOT 25 U/L (14-36); BLOOD UREA NITROGEN 8 mg/dL (7-17); CALCIUM 7.7 mg/dl (8.6-10.4); GFR NON-AFRICAN AMERICAN > 60
[2018-12-05] MEDS: Calcium-Vit D 500 mg-200 Units Tab UD PO SCH ×2 (12:00→17:30)
[2018-12-05] MEDS: LIPASE/PROTEASE/AMYLASE 4,200 U ECC PO SCH ×3 (12:00→17:30)
[2018-12-05] MEDS: Silver Sulfadiazine 1% Cream (20 gm) TOP SCH ×3 (12:01→18:54)
--- NOTE | 2018-12-05 12:32 | PN ---
DATE: 12/05/2018 LOCATION: ICU 14, bed A. HISTORY OF PRESENT ILLNESS: This is a 58-year-old female seen initially for GI consultation on 12/04/2018, reexamined again today with complaint of abdominal pain as well as lower extremities pain without reported GI bleeding. No chest pain or palpitation. No significant shortness of breath, but reported small amount of brownish bilious emesis last night. LABORATORY DATA: Today's lab result showed leukocytosis of 11.6 with subsequent drop of hemoglobin 6.1, hematocrit 19.1 with normal platelet count, PT 15.5, PTT 35. Sodium of 130, CO2 content of 34 indicative of respiratory alkalosis with calcium 7.7, albumin 1.9, total protein 4.2. Pancreatic CEA report is still pending. However, abdominal CAT scan, official report is seen consistent with pancreatitis with possible pancreatic necrosis in the body of the pancreas. Cystic mass in the head of the pancreas measured about 9 mm unchanged. PHYSICAL EXAMINATION: GENERAL: A 58-year-old female. VITAL SIGNS: Afebrile with pulse of 100, respiratory rate 20-22, blood pressure of 108/72. HEENT: Showed mildly pale, dry oral mucous membrane. Nonicteric sclerae. LUNGS: Few scattered crepitation. Decreased air entry at bases. HEART: Positive S1 and S2. ABDOMEN: Soft with mild generalized tenderness, mainly in the midepigastric area. No mass or organomegaly. No rebound tenderness or guarding. RECTAL: The patient refused. EXTREMITIES: Without edema, clubbing, or cyanosis. It has to be mentioned that the patient reported to be in status of rapid response early this morning due to an episode of hypotension despite the patient appeared to be alert, oriented, and verbal, and had been placed on Primaxin for possible necrotic pancreas as well as due to her bilateral lower extremities ulceration. IMPRESSION: 1. Pancreatitis with possible pancreatic necrosis leading to electrolyte imbalance with hypotension. 2. Anemia, most likely secondary to chronic disease. 3. Known history of deep venous thrombosis, depression with anxiety. 4. Reported history of borderline chronic obstructive pulmonary disease. 5. Severe anemia, rule out possible gastrointestinal blood loss. 6. Hyponatremia, hypocalcemia. 7. Severe malnutrition with hypoalbuminemia and proteinemia. SUGGESTIONS: 1. Continue current management. 2. Due to the patient's excessive increased serum lipase and amylase level, repeat serum lipase and amylase level. 3. Follow up cancer markers. 4. Rehydration. Further recommendation to follow and pancreatic biliary surgical consultation to be considered. Yin Patel MD
--- NOTE | 2018-12-05 12:54 | CP.PCM.PN ---
Subjective - Date & Time of Evaluation Date of Evaluation: 12/05/18 Time of Evaluation: 12:00 - Subjective Subjective: Patient seen and examined and was transferred to intensive care unit for anemia and possible bleeding Lovenox was discontinued and patient is receiving packed RBCs No shortness of breath noted Afebrile Objective - Vital Signs/Intake and Output Vital Signs (last 24 hours): Temp Pulse Resp BP Pulse Ox 98 F 97 H 18 108/78 100 12/05/18 12:30 12/05/18 12:36 12/05/18 12:36 12/05/18 12:36 12/05/18 12:22 Intake and Output: 12/05/18 12/05/18 06:59 18:59 Intake Total 300 0 Balance 300 0 - Medications Medications: Current Medications Acetaminophen (Tylenol 325 Mg Supp) 325 mg CA Q4 PRN PRN Reason: Fever >100.4 F Acetaminophen (Tylenol 650 Mg Supp) 650 mg CA ONCE PRN PRN Reason: pre-transfusion Albuterol/Ipratropium (Duoneb 3 Mg/0.5 Mg (3 Ml) Ud) 3 ml IH RQ6 [facility] Last Admin: 12/05/18 08:23 Dose: 3 ml Calcium/Vitamin D (Oyster Shell Calcium/Vitamin D 500 Mg-200 Iu) 1 tab PO BID MARY Last Admin: 12/05/18 12:00 Dose: Not Given Clonazepam (Klonopin) 1 mg PO Q12 PRN PRN Reason: Anxiety Famotidine (Pepcid) 20 mg IVP Q12 [facility]ARY Last Admin: 12/05/18 11:58 Dose: 20 mg Potassium Chloride/Dextrose/Sod Cl (Potassium Chl 20 Meq In D5-1/2ns) 1,000 mls @ 100 mls/hr IV .Q10H [facility] Last Admin: 12/05/18 03:13 Dose: Not Given Dextrose/Sodium Chloride (Dextrose 5%/0.9% Ns 1000 Ml) 1,000 mls @ 75 mls/hr IV .[id number] [facility] Last Admin: 12/05/18 02:15 Dose: Not Given Imipenem/Cilastatin Sodium 500 (mg/ Sodium Chloride) 100 mls @ 100 mls/hr IVPB Q6H [facility]; Protocol Last Admin: 12/05/18 11:57 Dose: 100 mls/hr Ketorolac Tromethamine (Toradol) 30 mg IVP Q6 [facility] Last Admin: 12/05/18 11:54 Dose: 30 mg Lactic Acid (Lac-Hydrin 12% Lotion (225 G)) 0 gm EXT DAILY [facility] Morphine Sulfate (Morphine) 2 mg IVP Q3H PRN PRN Reason: moderate to severe pain Last Admin: 12/05/18 04:45 Dose: 2 mg Silver Sulfadiazine (Silvadene 1% 20 Gm) 8 ea TOP BID [facility]ARY Last Admin: 12/05/18 12:01 Dose: Not Given Silver Sulfadiazine (Silvadene 1% 20 Gm) 0 ea TOP DAILY [facility] - Labs Labs: 12/05/18 08:34 12/05/18 09:18 PT 15.5 SECONDS (9.7-12.2) H 12/05/18 09:23 INR 1.4 12/05/18 09:23 APTT 35 SECONDS (21-34) H 12/05/18 09:23 - Head Exam Head Exam: ATRAUMATIC, NORMOCEPHALIC - ENT Exam ENT Exam: Mucous Membranes Moist - Neck Exam Neck Exam: Normal Inspection - Respiratory Exam Respiratory Exam: Clear to Ausculation Bilateral - Cardiovascular Exam Cardiovascular Exam: REGULAR RHYTHM Assessment and Plan (1) Anemia Assessment & Plan: Transfuse packed RBCs and follow-up CBC CT angios noted For surgical consult Continue ICU management Status: Acute (2) Chr obstructive pulmonary disease w/ acute lower respiratory infxn Status: Acute (3) DVT (deep venous thrombosis) Status: Acute (4) Cellulitis Status: Acute (5) Hyponatremia Status: Acute (6) Acute pancreatitis Status: Acute
--- NOTE | 2018-12-05 13:35 | CT ---
Date of service: 12/05/2018 PROCEDURE: CT Abdomen and Pelvis with contrast HISTORY: pancreatic necrosis COMPARISON: Abdomen pelvis CT with contrast 12/04/2018. TECHNIQUE: Contrast dose: Radiation dose: Total exam DLP = 576.67 mGy-cm. This CT exam was performed using one or more of the following dose reduction techniques: Automated exposure control, adjustment of the mA and/or kV according to patient size, and/or use of iterative reconstruction technique. FINDINGS: This examination is compromised by lack of oral contrast administration, particularly for an organ surrounded by the gastrointestinal tract. LOWER THORAX: Trace bilateral pleural effusions identified. LIVER: Unremarkable. No gross lesion or ductal dilatation. GALLBLADDER AND BILE DUCTS: Prior cholecystectomy evident once again. PANCREAS: The appearance of the lesser sac is not significantly changed in the interval with an enlarged pancreatic head again evident. The small lucency is not identified in the pancreatic head at this time. Inferomedial to the head is an area of indeterminate intermediate density suspicious for possible hematoma or phlegmon reflecting soft tissue and fluid attenuation once again. The appearance of the pancreas is mostly at the body may indicate pancreatic necrosis. No significant interval changes seen in the interval. No definitive pancreatic or common bile duct dilatation appreciable at this time. SPLEEN: Unremarkable. ADRENALS: Unremarkable. No mass. KIDNEYS AND URETERS: Unremarkable. No hydronephrosis. No solid mass. VASCULATURE: IVC filter reiterated in situ. No aortic aneurysm. No aortic atherosclerotic calcification or mural plaque present. BOWEL: Sympathetic mural thickening of the colon is questioned. No interval bowel obstruction appreciable. APPENDIX: Not identified. PERITONEUM: Extensive abdominal ascites reiterated, not significantly changed with injected extra abdominal fat suggestive of anasarca. LYMPH NODES: Unremarkable. No enlarged lymph nodes. BONES: No acute fracture. OTHER FINDINGS: None. IMPRESSION: Edematous pancreas body and tail with the head remaining enlarged and also potentially edematous with pancreatic necrosis suggested at least at the body and tail once again. Hematoma may be present inferomedial to the pancreatic head with diffuse ascites remaining extensive. Anasarca. Other lesser findings as discussed above.
[2018-12-05] MEDS ORDERED: Protamine 50mg/5mL Inj IV ONE ×2 (13:38)
--- NOTE | 2018-12-05 14:11 | CP.PCM.PN ---
Subjective - Date & Time of Evaluation Date of Evaluation: 12/04/18 Time of Evaluation: 10:05 - Subjective Subjective: Patient seen and examined No cardiac events noted Denies chest pain Objective - Vital Signs/Intake and Output Vital Signs (last 24 hours): Temp Pulse Resp BP Pulse Ox 99 F 90 19 110/66 97 12/04/18 16:00 12/04/18 16:00 12/04/18 16:00 12/04/18 16:00 12/04/18 16:00 Intake and Output: 12/04/18 12/04/18 06:59 18:59 Intake Total 170 220 Output Total 50 20 Balance 120 200 - Medications Medications: Current Medications Acetaminophen (Tylenol 325 Mg Supp) 325 mg [place] Q4 PRN PRN Reason: Fever >100.4 F Albuterol/Ipratropium (Duoneb 3 Mg/0.5 Mg (3 Ml) Ud) 3 ml IH RQ6 [facility] Last Admin: 12/04/18 13:19 Dose: 3 ml Calcium/Vitamin D (Oyster Shell Calcium/Vitamin D 500 Mg-200 Iu) 1 tab PO BID [facility] Last Admin: 12/04/18 10:35 Dose: Not Given Clonazepam (Klonopin) 1 mg PO Q12 PRN PRN Reason: Anxiety Enoxaparin Sodium (Lovenox) 45 mg SC Q12H [facility] Last Admin: 12/04/18 10:32 Dose: 45 mg Famotidine (Pepcid) 20 mg IVP Q12 [facility] Last Admin: 12/04/18 10:29 Dose: 20 mg Potassium Chloride/Dextrose/Sod Cl (Potassium Chl 20 Meq In D5-1/2ns) 1,000 mls @ 100 mls/hr IV .Q10H [facility] Last Admin: 12/04/18 08:45 Dose: 100 mls/hr Dextrose/Sodium Chloride (Dextrose 5%/0.9% Ns 1000 Ml) 1,000 mls @ 75 mls/hr IV .[id number] ONE Stop: 12/04/18 22:06 Last Admin: 12/04/18 13:50 Dose: Not Given Morphine Sulfate (Morphine) 2 mg IVP Q3H PRN PRN Reason: moderate to severe pain Last Admin: 12/04/18 13:44 Dose: 2 mg Silver Sulfadiazine (Silvadene 1% 20 Gm) 8 ea TOP BID [facility] Last Admin: 12/04/18 10:36 Dose: Not Given - Labs Labs: 12/04/18 06:26 12/04/18 06:24 PT 23.3 SECONDS (9.7-12.2) H 11/30/18 17:35 INR 2.1 11/30/18 17:35 APTT 41 SECONDS (21-34) H 11/30/18 17:35 - Head Exam Head Exam: ATRAUMATIC - ENT Exam ENT Exam: Mucous Membranes Moist - Respiratory Exam Respiratory Exam: Clear to Ausculation Bilateral - Cardiovascular Exam Cardiovascular Exam: REGULAR RHYTHM Assessment and Plan (1) Chr obstructive pulmonary disease w/ acute lower respiratory infxn Assessment & Plan: Continue the nebulizer treatment Breathing better Status: Acute (2) DVT (deep venous thrombosis) Assessment & Plan: Continue anticoagulation No drop in H&H No bleeding noted on CAT scan of the abdomen Status: Acute (3) Cellulitis Status: Acute (4) Hyponatremia Status: Acute (5) Acute pancreatitis Status: Acute Objective - Vital Signs/Intake and Output Vital Signs (last 24 hours): Temp Pulse Resp BP Pulse Ox 98 F 95 H 20 103/78 100 12/05/18 12:50 12/05/18 13:32 12/05/18 13:21 12/05/18 13:21 12/05/18 13:21 Intake and Output: 12/05/18 12/05/18 06:59 18:59 Intake Total 300 325 Balance 300 325 - Medications Medications: Current Medications Acetaminophen (Tylenol 325 Mg Supp) 325 mg [place] Q4 PRN PRN Reason: Fever >100.4 F Acetaminophen (Tylenol 650 Mg Supp) 650 mg DE ONCE PRN PRN Reason: pre-transfusion Albuterol/Ipratropium (Duoneb 3 Mg/0.5 Mg (3 Ml) Ud) 3 ml IH RQ6 [facility] Last Admin: 12/05/18 13:31 Dose: 3 ml Calcium/Vitamin D (Oyster Shell Calcium/Vitamin D 500 Mg-200 Iu) 1 tab PO BID [facility] Last Admin: 12/05/18 12:00 Dose: Not Given Clonazepam (Klonopin) 1 mg PO Q12 PRN PRN Reason: Anxiety Famotidine (Pepcid) 20 mg IVP Q12 [facility] Last Admin: 12/05/18 11:58 Dose: 20 mg Potassium Chloride/Dextrose/Sod Cl (Potassium Chl 20 Meq In D5-1/2ns) 1,000 mls @ 100 mls/hr IV .Q10H [facility] Last Admin: 12/05/18 03:13 Dose: Not Given Dextrose/Sodium Chloride (Dextrose 5%/0.9% Ns 1000 Ml) 1,000 mls @ 75 mls/hr IV .[id number] [facility] Last Admin: 12/05/18 02:15 Dose: Not Given Imipenem/Cilastatin Sodium 500 (mg/ Sodium Chloride) 100 mls @ 100 mls/hr IVPB Q6H [facility]; Protocol Last Admin: 12/05/18 11:57 Dose: 100 mls/hr Ketorolac Tromethamine (Toradol) 30 mg IVP Q6 [facility] Last Admin: 12/05/18 11:54 Dose: 30 mg Lactic Acid (Lac-Hydrin 12% Lotion (225 G)) 0 gm EXT DAILY [facility] Morphine Sulfate (Morphine) 2 mg IVP Q3H PRN PRN Reason: moderate to severe pain Last Admin: 12/05/18 04:45 Dose: 2 mg Silver Sulfadiazine (Silvadene 1% 20 Gm) 8 ea TOP BID [facility] Last Admin: 12/05/18 12:01 Dose: Not Given Silver Sulfadiazine (Silvadene 1% 20 Gm) 0 ea TOP DAILY [facility] - Labs Labs: 12/05/18 08:34 12/05/18 09:18 PT 15.5 SECONDS (9.7-12.2) H 12/05/18 09:23 INR 1.4 12/05/18 09:23 APTT 35 SECONDS (21-34) H 12/05/18 09:23
--- NOTE | 2018-12-05 14:21 | CP.PCM.CON ---
History of Present Illness - History of Present Illness History of Present Illness: 58yo F. PMHx DVT (admitted 11/30), chronic pancreatitis with pancreatic insufficiency, anxiety and depression. p/w necrotizing pancreatitis. today patient had a drop in BP, drop in hematocrit, became pale/ashen looking, rapid response called. CT angio of abdomen shows signs of hemorrhagic pancreatitis. Review of Systems - Review of Systems All systems: reviewed and no additional remarkable complaints except - Gastrointestinal Gastrointestinal: Abdominal Pain Past Patient History - Infectious Disease Hx of Infectious Diseases: None - Past Medical History & Family History Past Medical History?: Yes - Past Social History Smoking Status: Heavy Smoker > 10 Cigarettes Daily - CARDIAC Hx Cardiac Disorders: No - PULMONARY Hx Chronic Obstructive Pulmonary Disease (COPD): Yes Hx Pneumonia: Yes (CHILDHOOD) - NEUROLOGICAL Hx Neurological Disorder: No - HEENT Hx HEENT Problems: No - RENAL Hx Chronic Kidney Disease: No - ENDOCRINE/METABOLIC Hx Endocrine Disorders: No - HEMATOLOGICAL/ONCOLOGICAL Hx Blood Disorders: No Hx Blood Transfusions: Yes Hx Blood Transfusion Reaction: No Other/Comment: Hepatitis - INTEGUMENTARY Hx Dermatological Problems: No - MUSCULOSKELETAL/RHEUMATOLOGICAL Hx Falls: No - GASTROINTESTINAL Hx Gall Bladder Disease: Yes (Cholelithiasis) Hx Pancreatitis: Yes - GENITOURINARY/GYNECOLOGICAL Hx Genitourinary Disorders: No Other/Comment: 1990 oophorectomy - PSYCHIATRIC Hx Substance Use: No - SURGICAL HISTORY Hx Cholecystectomy: Yes - ANESTHESIA Hx Anesthesia: Yes Hx Anesthesia Reactions: No Hx Malignant Hyperthermia: No Meds Allergies/Adverse Reactions: Allergies Allergy/AdvReac Type Severity Reaction Status Date / Time No Known Allergies Allergy Verified 11/30/18 16:21 - Medications Medications: Current Medications Acetaminophen (Tylenol 325 Mg Supp) 325 mg [place] Q4 PRN PRN Reason: Fever >100.4 F Acetaminophen (Tylenol 650 Mg Supp) 650 mg [place] ONCE PRN PRN Reason: pre-transfusion Albuterol/Ipratropium (Duoneb 3 Mg/0.5 Mg (3 Ml) Ud) 3 ml IH RQ6 [facility] Last Admin: 12/05/18 13:31 Dose: 3 ml Calcium/Vitamin D (Oyster Shell Calcium/Vitamin D 500 Mg-200 Iu) 1 tab PO BID [facility] Last Admin: 12/05/18 12:00 Dose: Not Given Clonazepam (Klonopin) 1 mg PO Q12 PRN PRN Reason: Anxiety Famotidine (Pepcid) 20 mg IVP Q12 [facility] Last Admin: 12/05/18 11:58 Dose: 20 mg Potassium Chloride/Dextrose/Sod Cl (Potassium Chl 20 Meq In D5-1/2ns) 1,000 mls @ 100 mls/hr IV .Q10H [facility] Last Admin: 12/05/18 03:13 Dose: Not Given Dextrose/Sodium Chloride (Dextrose 5%/0.9% Ns 1000 Ml) 1,000 mls @ 75 mls/hr IV .[id number] [facility] Last Admin: 12/05/18 02:15 Dose: Not Given Imipenem/Cilastatin Sodium 500 (mg/ Sodium Chloride) 100 mls @ 100 mls/hr IVPB Q6H [facility]; Protocol Last Admin: 12/05/18 11:57 Dose: 100 mls/hr Ketorolac Tromethamine (Toradol) 30 mg IVP Q6 [facility] Last Admin: 12/05/18 11:54 Dose: 30 mg Lactic Acid (Lac-Hydrin 12% Lotion (225 G)) 0 gm EXT DAILY [facility] Morphine Sulfate (Morphine) 2 mg IVP Q3H PRN PRN Reason: moderate to severe pain Last Admin: 12/05/18 04:45 Dose: 2 mg Protamine Sulfate (Protamine) 25 mg IV ONCE ONE Stop: 12/05/18 13:39 Silver Sulfadiazine (Silvadene 1% 20 Gm) 8 ea TOP BID [facility] Last Admin: 12/05/18 12:01 Dose: Not Given Silver Sulfadiazine (Silvadene 1% 20 Gm) 0 ea TOP DAILY [facility] Physical Exam - Head Exam Head Exam: ATRAUMATIC, NORMAL INSPECTION, NORMOCEPHALIC - Eye Exam Eye Exam: EOMI, Normal appearance, PERRL Pupil Exam: NORMAL ACCOMODATION, PERRL - ENT Exam ENT Exam: Mucous Membranes Dry, Normal Exam - Neck Exam Neck exam: Positive for: Normal Inspection - Respiratory Exam Respiratory Exam: Clear to Auscultation Bilateral, NORMAL BREATHING PATTERN - Cardiovascular Exam Cardiovascular Exam: REGULAR RHYTHM - GI/Abdominal Exam GI & Abdominal Exam: Hypoactive Bowel Sounds, Rigid - Neurological Exam Neurological exam: Alert Results - Vital Signs Recent Vital Signs: Last Vital Signs Temp 98 F 12/05/18 12:50 Pulse 95 H 12/05/18 13:32 Resp 20 12/05/18 13:21 BP 103/78 12/05/18 13:21 Pulse Ox 100 12/05/18 13:21 - Labs Result Diagrams: 12/05/18 08:34 12/05/18 09:18 Labs: Laboratory Results - last 24 hr 12/05/18 12/05/18 12/05/18 07:16 07:16 08:34 WBC 11.4 H 11.6 H RBC 2.73 L 2.35 L Hgb 7.1 L D 6.1 L* Hct 22.1 L 19.1 L MCV 80.8 L 81.1 MCH 25.9 L 26.0 L MCHC 32.1 L 32.1 L RDW 15.9 H 15.7 H Plt Count 352 303 MPV 7.3 7.1 L Neut % (Auto) 84.6 H Lymph % (Auto) 7.7 L [place] % (Auto) 7.5 Eos % (Auto) 0.0 Baso % (Auto) 0.2 Neut # (Auto) 9.6 H Lymph # (Auto) 0.9 L [place] # (Auto) 0.9 H Eos # (Auto) 0.0 Baso # (Auto) 0.0 Neutrophils % (Manual) 85 H Lymphocytes % (Manual) 9 L Monocytes % (Manual) 6 Platelet Estimate Normal Large Platelets Present Polychromasia Slight Hypochromasia (manual) Slight Poikilocytosis (manual Slight Anisocytosis (manual) Slight Target Cells Slight Tear Drop Cells Slight Ovalocytes Slight PT INR APTT Sodium 128 L Potassium 4.5 Chloride 89 L Carbon Dioxide 37 H Anion Gap 6 L BUN 8 Creatinine 0.4 L Est GFR ( Amer) > 60 Est GFR (Non-Af Amer) > 60 POC Glucose (mg/dL) Random Glucose 94 Serum Osmolality Lactic Acid Calcium 7.8 L Phosphorus 3.8 Magnesium 1.2 L Total Bilirubin 0.3 AST 29 ALT 18 Alkaline Phosphatase 78 Total Protein 4.6 L Albumin 2.2 L D Globulin 2.4 Albumin/Globulin Ratio 0.9 L Triglycerides Cholesterol LDL Cholesterol Direct HDL Cholesterol Amylase 274 H Lipase 1097 H Carcinoembryonic Ag 9.7 H CA 19-9 Antigen 3.4 CA 125 Antigen 167 H Cortisol AM Sample Urine Osmolality Ur Random Sodium Blood Type Antibody Screen 12/05/18 12/05/18 12/05/18 09:10 09:18 09:18 WBC RBC Hgb Hct MCV MCH MCHC RDW Plt Count MPV Neut % (Auto) Lymph % (Auto) [place] % (Auto) Eos % (Auto) Baso % (Auto) Neut # (Auto) Lymph # (Auto) [place] # (Auto) Eos # (Auto) Baso # (Auto) Neutrophils % (Manual) Lymphocytes % (Manual) Monocytes % (Manual) Platelet Estimate Large Platelets Polychromasia Hypochromasia (manual) Poikilocytosis (manual Anisocytosis (manual) Target Cells Tear Drop Cells Ovalocytes PT INR APTT Sodium Potassium Chloride Carbon Dioxide Anion Gap BUN Creatinine Est GFR ( Amer) Est GFR (Non-Af Amer) POC Glucose (mg/dL) 94 Random Glucose Serum Osmolality Lactic Acid Calcium Phosphorus Magnesium Total Bilirubin AST ALT Alkaline Phosphatase Total Protein Albumin Globulin Albumin/Globulin Ratio Triglycerides Cholesterol LDL Cholesterol Direct HDL Cholesterol Amylase Lipase Carcinoembryonic Ag CA 19-9 Antigen CA 125 Antigen Cortisol AM Sample 23.3 H Urine Osmolality Ur Random Sodium Blood Type A POSITIVE Antibody Screen Negative 12/05/18 12/05/18 12/05/18 09:18 09:18 09:23 WBC RBC Hgb Hct MCV MCH MCHC RDW Plt Count MPV Neut % (Auto) Lymph % (Auto) [place] % (Auto) Eos % (Auto) Baso % (Auto) Neut # (Auto) Lymph # (Auto) [place] # (Auto) Eos # (Auto) Baso # (Auto) Neutrophils % (Manual) Lymphocytes % (Manual) Monocytes % (Manual) Platelet Estimate Large Platelets Polychromasia Hypochromasia (manual) Poikilocytosis (manual Anisocytosis (manual) Target Cells Tear Drop Cells Ovalocytes PT 15.5 H INR 1.4 APTT 35 H Sodium 130 L Potassium 4.2 Chloride 93 L Carbon Dioxide 34 H Anion Gap 8 L BUN 8 Creatinine 0.4 L Est GFR ( Amer) > 60 Est GFR (Non-Af Amer) > 60 POC Glucose (mg/dL) Random Glucose 93 Serum Osmolality 273 Lactic Acid Calcium 7.7 L Phosphorus Magnesium Total Bilirubin 0.3 AST 25 ALT 26 Alkaline Phosphatase 67 Total Protein 4.2 L Albumin 1.9 L Globulin 2.3 Albumin/Globulin Ratio 0.8 L Triglycerides 92 D Cholesterol 96 LDL Cholesterol Direct 55 HDL Cholesterol 37 Amylase Lipase Carcinoembryonic Ag CA 19-9 Antigen CA 125 Antigen Cortisol AM Sample Urine Osmolality Ur Random Sodium Blood Type Antibody Screen 12/05/18 12/05/18 09:45 12:15 WBC RBC Hgb Hct MCV MCH MCHC RDW Plt Count MPV Neut % (Auto) Lymph % (Auto) [place] % (Auto) Eos % (Auto) Baso % (Auto) Neut # (Auto) Lymph # (Auto) [place] # (Auto) Eos # (Auto) Baso # (Auto) Neutrophils % (Manual) Lymphocytes % (Manual) Monocytes % (Manual) Platelet Estimate Large Platelets Polychromasia Hypochromasia (manual) Poikilocytosis (manual Anisocytosis (manual) Target Cells Tear Drop Cells Ovalocytes PT INR APTT Sodium Potassium Chloride Carbon Dioxide Anion Gap BUN Creatinine Est GFR ( Amer) Est GFR (Non-Af Amer) POC Glucose (mg/dL) Random Glucose Serum Osmolality Lactic Acid 0.6 L Calcium Phosphorus Magnesium Total Bilirubin AST ALT Alkaline Phosphatase Total Protein Albumin Globulin Albumin/Globulin Ratio Triglycerides Cholesterol LDL Cholesterol Direct HDL Cholesterol Amylase Lipase Carcinoembryonic Ag CA 19-9 Antigen CA 125 Antigen Cortisol AM Sample Urine Osmolality 652 Ur Random Sodium 152 Blood Type Antibody Screen Assessment & Plan (1) Hemorrhagic pancreatitis Assessment and Plan: 58yo F. PMHx DVT (admitted 11/30), chronic pancreatitis with pancreatic insufficiency, anxiety and depression. p/w necrotizing pancreatitis converted to hemorrhagic pancreatitis (12/05). Neuro: alert and oriented x 3 Pulm: some SOB, started on BIPAP for comfort. CV: hemorrhagic shock, now stabilizing, after 2L NS, 2 PRBC, 1 FFP. no rise in lactate. Hem: anemia from blood loss, 2 PRBC, 1 FFP, protamine given for lovenox reversal . DVT, IVC filter in place. Renal: monitoring urine output, currently adequate. Endo: no acute issues GI: NPO, necrotizing hemorrhagic pancreatitis on CT angio of abdomen. ID: Primaxin empirically, f/u blood cultures. If no improvement may need FNA later. DVT proph - SCD's, holding a/c with current bleed GI proph - not currently inidicated [place] for strict I/O's during acute illness Code status - full code Critical Care Time spent 90 minutes Multi-disciplinary rounds were performed with house staff, nursing, speech therapy, respiratory therapy, pharmacy and nutrition with integrated input from the primary team/attending and other consulting services. The documented time is cumulative and includes review of patient data/exams/labs/chart review and examination of the patient on rounds and throughout the day; time is exclusive of any procedures or teaching time. Status: Acute
[2018-12-05] MEDS ORDERED: HYDROmorphone 1 mg/ml ISec IVP PRN (15:28)
--- NOTE | 2018-12-05 15:48 | CP.PCM.CON ---
History of Present Illness - History of Present Illness History of Present Illness: dictated Past Patient History - Infectious Disease Hx of Infectious Diseases: None - Past Medical History & Family History Past Medical History?: Yes - Past Social History Smoking Status: Heavy Smoker > 10 Cigarettes Daily - CARDIAC Hx Cardiac Disorders: No - PULMONARY Hx Chronic Obstructive Pulmonary Disease (COPD): Yes Hx Pneumonia: Yes (CHILDHOOD) - NEUROLOGICAL Hx Neurological Disorder: No - HEENT Hx HEENT Problems: No - RENAL Hx Chronic Kidney Disease: No - ENDOCRINE/METABOLIC Hx Endocrine Disorders: No - HEMATOLOGICAL/ONCOLOGICAL Hx Blood Disorders: No Hx Blood Transfusions: Yes Hx Blood Transfusion Reaction: No Other/Comment: Hepatitis - INTEGUMENTARY Hx Dermatological Problems: No - MUSCULOSKELETAL/RHEUMATOLOGICAL Hx Falls: No - GASTROINTESTINAL Hx Gall Bladder Disease: Yes (Cholelithiasis) Hx Pancreatitis: Yes - GENITOURINARY/GYNECOLOGICAL Hx Genitourinary Disorders: No Other/Comment: 1990 oophorectomy - PSYCHIATRIC Hx Substance Use: No - SURGICAL HISTORY Hx Cholecystectomy: Yes - ANESTHESIA Hx Anesthesia: Yes Hx Anesthesia Reactions: No Hx Malignant Hyperthermia: No Meds Allergies/Adverse Reactions: Allergies Allergy/AdvReac Type Severity Reaction Status Date / Time No Known Allergies Allergy Verified 11/30/18 16:21 - Medications Medications: Current Medications Acetaminophen (Tylenol 325 Mg Supp) [address] Q4 PRN PRN Reason: Fever >100.4 F Acetaminophen (Tylenol 650 Mg Supp) [address] ONCE PRN PRN Reason: pre-transfusion Albuterol/Ipratropium (Duoneb 3 Mg/0.5 Mg (3 Ml) Ud) 3 ml IH RQ6 [facility] Last Admin: 12/05/18 13:31 Dose: 3 ml Calcium/Vitamin D (Oyster Shell Calcium/Vitamin D 500 Mg-200 Iu) 1 tab PO BID [facility] Last Admin: 12/05/18 12:00 Dose: Not Given Clonazepam (Klonopin) 1 mg PO Q12 PRN PRN Reason: Anxiety Famotidine (Pepcid) 20 mg IVP Q12 [facility] Last Admin: 12/05/18 11:58 Dose: 20 mg Hydromorphone HCl (Dilaudid) 0.5 mg IVP Q3H PRN PRN Reason: Pain, severe (8-10) Potassium Chloride/Dextrose/Sod Cl (Potassium Chl 20 Meq In D5-1/2ns) 1,000 mls @ 100 mls/hr IV .Q10H [facility] Last Admin: 12/05/18 03:13 Dose: Not Given Dextrose/Sodium Chloride (Dextrose 5%/0.9% Ns 1000 Ml) 1,000 mls @ 75 mls/hr IV .[id number] [facility] Last Admin: 12/05/18 15:41 Dose: Not Given Imipenem/Cilastatin Sodium 500 (mg/ Sodium Chloride) 100 mls @ 100 mls/hr IVPB Q6H [facility]; Protocol Last Admin: 12/05/18 11:57 Dose: 100 mls/hr Lactic Acid (Lac-Hydrin 12% Lotion (225 G)) 0 gm EXT DAILY [facility] Morphine Sulfate (Morphine) 2 mg IVP Q3H PRN PRN Reason: moderate to severe pain Last Admin: 12/05/18 04:45 Dose: 2 mg Silver Sulfadiazine (Silvadene 1% 20 Gm) 8 ea TOP BID [facility] Last Admin: 12/05/18 12:01 Dose: Not Given Silver Sulfadiazine (Silvadene 1% 20 Gm) 0 ea TOP DAILY [facility] Results - Vital Signs Recent Vital Signs: Last Vital Signs Temp 98 F 12/05/18 12:50 Pulse 95 H 12/05/18 13:32 Resp 20 12/05/18 13:21 BP 103/78 12/05/18 13:21 Pulse Ox 100 12/05/18 13:21 - Labs Result Diagrams: 12/05/18 08:34 12/05/18 09:18 Labs: Laboratory Results - last 24 hr 12/05/18 12/05/18 12/05/18 07:16 07:16 08:34 WBC 11.4 H 11.6 H RBC 2.73 L 2.35 L Hgb 7.1 L D 6.1 L* Hct 22.1 L 19.1 L MCV 80.8 L 81.1 MCH 25.9 L 26.0 L MCHC 32.1 L 32.1 L RDW 15.9 H 15.7 H Plt Count 352 303 MPV 7.3 7.1 L Neut % (Auto) 84.6 H Lymph % (Auto) 7.7 L [place] % (Auto) 7.5 Eos % (Auto) 0.0 Baso % (Auto) 0.2 Neut # (Auto) 9.6 H Lymph # (Auto) 0.9 L [place] # (Auto) 0.9 H Eos # (Auto) 0.0 Baso # (Auto) 0.0 Neutrophils % (Manual) 85 H Lymphocytes % (Manual) 9 L Monocytes % (Manual) 6 Platelet Estimate Normal Large Platelets Present Polychromasia Slight Hypochromasia (manual) Slight Poikilocytosis (manual Slight Anisocytosis (manual) Slight Target Cells Slight Tear Drop Cells Slight Ovalocytes Slight PT INR APTT Sodium 128 L Potassium 4.5 Chloride 89 L Carbon Dioxide 37 H Anion Gap 6 L BUN 8 Creatinine 0.4 L Est GFR ( Amer) > 60 Est GFR (Non-Af Amer) > 60 POC Glucose (mg/dL) Random Glucose 94 Serum Osmolality Lactic Acid Calcium 7.8 L Phosphorus 3.8 Magnesium 1.2 L Total Bilirubin 0.3 AST 29 ALT 18 Alkaline Phosphatase 78 Total Protein 4.6 L Albumin 2.2 L D Globulin 2.4 Albumin/Globulin Ratio 0.9 L Triglycerides Cholesterol LDL Cholesterol Direct HDL Cholesterol Amylase 274 H Lipase 1097 H Carcinoembryonic Ag 9.7 H CA 19-9 Antigen 3.4 CA 125 Antigen 167 H Cortisol AM Sample Urine Osmolality Ur Random Sodium Blood Type Antibody Screen 12/05/18 12/05/18 12/05/18 09:10 09:18 09:18 WBC RBC Hgb Hct MCV MCH MCHC RDW Plt Count MPV Neut % (Auto) Lymph % (Auto) [place] % (Auto) Eos % (Auto) Baso % (Auto) Neut # (Auto) Lymph # (Auto) [place] # (Auto) Eos # (Auto) Baso # (Auto) Neutrophils % (Manual) Lymphocytes % (Manual) Monocytes % (Manual) Platelet Estimate Large Platelets Polychromasia Hypochromasia (manual) Poikilocytosis (manual Anisocytosis (manual) Target Cells Tear Drop Cells Ovalocytes PT INR APTT Sodium Potassium Chloride Carbon Dioxide Anion Gap BUN Creatinine Est GFR ( Amer) Est GFR (Non-Af Amer) POC Glucose (mg/dL) 94 Random Glucose Serum Osmolality Lactic Acid Calcium Phosphorus Magnesium Total Bilirubin AST ALT Alkaline Phosphatase Total Protein Albumin Globulin Albumin/Globulin Ratio Triglycerides Cholesterol LDL Cholesterol Direct HDL Cholesterol Amylase Lipase Carcinoembryonic Ag CA 19-9 Antigen CA 125 Antigen Cortisol AM Sample 23.3 H Urine Osmolality Ur Random Sodium Blood Type A POSITIVE Antibody Screen Negative 0212/05/18 12/05/18 09:18 09:18 09:23 WBC RBC Hgb Hct MCV MCH MCHC RDW Plt Count MPV Neut % (Auto) Lymph % (Auto) [place] % (Auto) Eos % (Auto) Baso % (Auto) Neut # (Auto) Lymph # (Auto) [place] # (Auto) Eos # (Auto) Baso # (Auto) Neutrophils % (Manual) Lymphocytes % (Manual) Monocytes % (Manual) Platelet Estimate Large Platelets Polychromasia Hypochromasia (manual) Poikilocytosis (manual Anisocytosis (manual) Target Cells Tear Drop Cells Ovalocytes PT 15.5 H INR 1.4 APTT 35 H Sodium 130 L Potassium 4.2 Chloride 93 L Carbon Dioxide 34 H Anion Gap 8 L BUN 8 Creatinine 0.4 L Est GFR ( Amer) > 60 Est GFR (Non-Af Amer) > 60 POC Glucose (mg/dL) Random Glucose 93 Serum Osmolality 273 Lactic Acid Calcium 7.7 L Phosphorus Magnesium Total Bilirubin 0.3 AST 25 ALT 26 Alkaline Phosphatase 67 Total Protein 4.2 L Albumin 1.9 L Globulin 2.3 Albumin/Globulin Ratio 0.8 L Triglycerides 92 D Cholesterol 96 LDL Cholesterol Direct 55 HDL Cholesterol 37 Amylase Lipase Carcinoembryonic Ag CA 19-9 Antigen CA 125 Antigen Cortisol AM Sample Urine Osmolality Ur Random Sodium Blood Type Antibody Screen 12/05/18 12/05/18 09:45 12:15 WBC RBC Hgb Hct MCV MCH MCHC RDW Plt Count MPV Neut % (Auto) Lymph % (Auto) [place] % (Auto) Eos % (Auto) Baso % (Auto) Neut # (Auto) Lymph # (Auto) [place] # (Auto) Eos # (Auto) Baso # (Auto) Neutrophils % (Manual) Lymphocytes % (Manual) Monocytes % (Manual) Platelet Estimate Large Platelets Polychromasia Hypochromasia (manual) Poikilocytosis (manual Anisocytosis (manual) Target Cells Tear Drop Cells Ovalocytes PT INR APTT Sodium Potassium Chloride Carbon Dioxide Anion Gap BUN Creatinine Est GFR ( Amer) Est GFR (Non-Af Amer) POC Glucose (mg/dL) Random Glucose Serum Osmolality Lactic Acid 0.6 L Calcium Phosphorus Magnesium Total Bilirubin AST ALT Alkaline Phosphatase Total Protein Albumin Globulin Albumin/Globulin Ratio Triglycerides Cholesterol LDL Cholesterol Direct HDL Cholesterol Amylase Lipase Carcinoembryonic Ag CA 19-9 Antigen CA 125 Antigen Cortisol AM Sample Urine Osmolality 652 Ur Random Sodium 152 Blood Type Antibody Screen
[2018-12-05] MEDS: HYDROmorphone 0.5 mg/0.5 ml ISec IVP PRN ×3 (15:52→23:24)
[2018-12-05] MEDS: Ammonium Lactate 12% Lotion (225 g) EXT SCH (17:31)
[2018-12-05] MEDS: Lactated Ringer's 1,000 ML IV SCH ×2 (19:00→19:20)
[2018-12-05 21:28] LABS: BASO % 0.4 % (0.0-2.0); EOS # 0.1 K/uL (0.0-0.7); EOS % 0.8 % (0.0-4.0); HEMOGLOBIN 9.4 g/dL (11.0-16.0); LYMPH # 0.7 K/uL (1.0-4.3); LYMPH % 6.6 % (20.0-40.0); MEAN CELL VOLUME 83.5 fL (81.0-99.0); MEAN CORPUSCULAR HEMOGLOBIN 27.1 pg (27.0-31.0); MEAN CORPUSCULAR HGB CONC 32.4 g/dL (33.0-37.0); MEAN PLATELET VOLUME 6.9 fL (7.2-11.7); MONO # 0.8 K/uL (0.0-0.8); MONO % 7.6 % (0.0-10.0); NEUT # 9.1 K/uL (1.8-7.0); NEUT % 84.6 % (50.0-75.0); PLATELET COUNT 251 K/uL (130-400); RBC 3.47 Mil/uL (3.80-5.20); RED CELL DISTRIBUTION WIDTH 17.5 % (11.5-14.5); WHITE BLOOD COUNT 10.7 K/uL (4.8-10.8)
--- NOTE | 2018-12-05 21:54 | PN ---
DATE: 12/05/2018 SUBJECTIVE: The patient is seen. The patient went to the floor but was sent back after she had a rapid response, was noted to be hypotensive, also hemoglobin dropped from 10 to 6.1. The patient is seen today, not complaining of pain. The patient was taken off Klonopin as well as morphine p.r.n. and only taking for pain right now. The patient is also on Dilaudid 0.5 IV every 3 hours p.r.n. She seems to be more comfortable right now, not agitated, visited by family. PHYSICAL EXAMINATION: VITAL SIGNS: Temperature 98.8, pulse 96, blood pressure 89/62, respirations 15, oxygen saturations 100%. REVIEW OF SYSTEMS: GENERAL: She is alert, feeling weak, seen in her room, complaining of pain. She was receiving care from the nurses. The patient has been followed by GI. SKIN: No diaphoresis. HEENT: No headache. No dizziness. NECK: Supple. RESPIRATORY: Not in acute respiratory distress. CARDIOVASCULAR: No chest pain. GASTROINTESTINAL: No nausea, no vomiting, not complaining of abdominal pain. EXTREMITIES: The patient moves extremities. NEURO: Alert, oriented x2, but feeling weak. GENITOURINARY: No dysuria. MENTAL STATUS EXAMINATION: Frail looking female who looks stated age, seen in ICU, bed 14. Mood is dysphoric. Affect is restricted. Speech is slow. Thought process is coherent. Thought content, no psychosis. No suicidal or homicidal ideation. Attention and memory seem to be limited. Insight and judgment limited. Impulse control is fair at this time. IMPRESSION: History of recurrent depression, anxiety as well as history of alcohol abuse and pancreatitis. PLAN AND RECOMMENDATIONS: The patient is seen, meds reviewed. We agreed to keep the patient off morphine p.r.n. and Klonopin for now. The patient is only receiving Dilaudid 0.5 IV every 3 hours p.r.n. The patient is told not to take too much pain medication, especially with her low blood pressure. Continue treatment plan as outlined. Grant Adhikari MD
[2018-12-05 23:09] LABS: LYMPHOCYTE 6 % (20-40); MONOCYTE 4 % (0-10); NEUTROPHIL 90 % (50-75); TOTAL CELLS COUNTED 100
[2018-12-05 23:10] LABS: ANISOCYTOSIS SLIGHT; HYPOCHROMIC SLIGHT; PLATELET ESTIMATE NORMAL (NORMAL); POIKILOCYTOSIS SLIGHT; TARGET CELLS SLIGHT
[2018-12-06] MEDS: Lactated Ringer's 1,000 ML IV SCH ×2 (01:10→03:34)
[2018-12-06] MEDS: Albuterol-Ipratrop 3 mg / 0.5 (3 ml) UD IH SCH (01:32)
--- NOTE | 2018-12-06 01:46 | CON ---
DATE: 12/05/2018 INFECTIOUS DISEASE CONSULT REQUESTED BY: Connor Baker MD and residential support specialist. HISTORY OF PRESENT ILLNESS: This patient is a 58-year-old female. She was admitted here with bilateral leg swellings, ulcerations, and wounds, was discharged on 11/30/2018. She was seeing her PMD but her wounds have become more open. So, she came in. She had no fever, no trauma, no weakness, no numbness. At this time, the patient is in ICU. She was found to have hemorrhagic pancreatitis. She does give history of having pancreatitis in the past. She is also on BiPAP. Her cousin is here to see her. She was getting FFP. PAST MEDICAL HISTORY: Significant for COPD, depression, pancreatitis, pneumonia, anxiety, and chronic kidney disease. She does give history of drinking alcohol. She says that she only used to drink beer before. PAST SURGICAL HISTORY: She also had gallbladder removed. Surgical history is significant for endoscopy and cholecystectomy, and she has had multiple admissions here which showed that she had an intercostal catheter on 11/15/2013 and fluoroscopy for gallbladder and bile duct on 06/23/2017. SOCIAL HISTORY: Tobacco use, yes. Alcohol, no, she denies. No substance abuse. REVIEW OF SYSTEMS: She has no fever at this time. She was hypotensive and shaky and is in monitoring in the ICU now. She is put on antibiotic, meropenem empirically. PHYSICAL EXAMINATION: GENERAL: She appears pale. VITAL SIGNS: T-max is 98, pulse is 95, blood pressure 103/78, respirations are 20. HEENT: Head is atraumatic, normocephalic. She has BiPAP on at this time. NECK: Supple. JVP is flat. LUNGS: Clear to auscultation. HEART: S1, S2, and is regular. ABDOMEN: Upper abdominal tenderness. No guarding, no rigidity. She was also seen by the surgeon. EXTREMITIES: Have bilateral ulcerations with dressings at this time, and since she is acutely ill, I will review the lesions on separate visit. LABORATORY DATA: Labs are noted. Labs show white count is 11.6, hemoglobin 6.1, hematocrit 19.1, platelet count is 303. She is acutely anemic. Sodium is 130, potassium 4.2, chloride 93, bicarb is 34, BUN is 8, creatinine 0.4. Her wound cultures have been Enterococcus which is sensitive to ampicillin, Cipro, and penicillin, and at this time, she is on meropenem. So, we will leave her on Primaxin at this time. Her chest x-ray and pancreas CT was done. Pancreas CT today shows edematous pancreas body and tail with the head remained enlarged and also potentially edematous and pancreatic necrosis suggested at least at the body and tail once again. Hematoma may be present anteromedial to the pancreatic head with diffuse ascites remaining extensive and there is anasarca. ASSESSMENT AND PLAN: So, she has anasarca and has hemorrhagic pancreatitis and hematoma at the pancreas. Suggest at this time to follow surgical evaluation. She is started emphatically on meropenem already, so we will continue that and we will follow. The patient is on other medications including Tylenol for fever, albuterol inhaler, DuoNeb inhalers, calcium, vitamin D, Klonopin, dextrose, Pepcid, hydromorphone, morphine is on hold, potassium chloride is not given, sulfadiazine which she was applying topically has been discontinued. We will follow. The patient remains critically ill at this time and she is waiting for transfusions and was getting fresh frozen plasma. Ilana Dempsey MD
[2018-12-06] MEDS: HYDROmorphone 0.5 mg/0.5 ml ISec IVP PRN ×8 (02:13→23:23)
[2018-12-06 03:38] LABS: HEMOGLOBIN 8.9 g/dL (11.0-16.0); MEAN CELL VOLUME 84.6 fL (81.0-99.0); MEAN CORPUSCULAR HEMOGLOBIN 28.1 pg (27.0-31.0); MEAN CORPUSCULAR HGB CONC 33.2 g/dL (33.0-37.0); MEAN PLATELET VOLUME 6.7 fL (7.2-11.7); RBC 3.16 Mil/uL (3.80-5.20); RED CELL DISTRIBUTION WIDTH 17.1 % (11.5-14.5); WHITE BLOOD COUNT 8.4 K/uL (4.8-10.8)
[2018-12-06 03:52] LABS: ALB/GLOB RATIO 0.8 (1.0-2.1); ALBUMIN 1.7 g/dL (3.5-5.0); ALT/SGPT 21 U/L (9-52); AST/SGOT 20 U/L (14-36); BLOOD UREA NITROGEN 10 mg/dL (7-17); CALCIUM 7.5 mg/dl (8.6-10.4); GFR NON-AFRICAN AMERICAN > 60
[2018-12-06] MEDS: Sodium Chloride 0.9% 1,000 ML IV SCH ×5 (04:00→19:30)
--- NOTE | 2018-12-06 07:47 | CP.PCM.PN ---
<Tiffany Dumont - Last Filed: 12/06/18 08:35> Subjective - Date & Time of Evaluation Date of Evaluation: 12/06/18 Time of Evaluation: 06:45 - Subjective Subjective: Patient seen this am and throughout the night. UOP has been minimally adequate for weight on admission (95lbs). patient has been awake alert and oriented saturating well of 2-3 L NC O2. She endorses abdominal pain which has been relatively well controlled with pain medication. BP has been stable at approximately 90-110/50-65. HR ranged between 82-105. Patient received a total of 3 units of blood and hgb recovered appropriately. Abdominal compartment pressures as measured by worley catheter have been elevated since 8pm yesterday and stable at 23-24 since midnight last night. Patient otherwise denies PASTRANA, CP, SOB, and extremity pain or weakness. Objective - Vital Signs/Intake and Output Vital Signs (last 24 hours): Temp Pulse Resp BP Pulse Ox 97.6 F 91 H 18 90/61 L 96 12/06/18 04:00 12/06/18 05:19 12/06/18 05:19 12/06/18 05:20 12/06/18 05:19 Intake and Output: 12/06/18 12/06/18 06:59 18:59 Intake Total 2775 Output Total 250 Balance 2525 - Medications Medications: Current Medications Acetaminophen (Tylenol 325 Mg Supp) 325 mg OR Q4 PRN PRN Reason: Fever >100.4 F Acetaminophen (Tylenol 650 Mg Supp) 650 mg OR ONCE PRN PRN Reason: pre-transfusion Famotidine (Pepcid) 20 mg IVP Q12 [facility] Last Admin: 12/05/18 22:00 Dose: 20 mg Hydromorphone HCl (Dilaudid) 0.5 mg IVP Q3H PRN PRN Reason: Pain, severe (8-10) Last Admin: 12/06/18 05:13 Dose: 0.5 mg Imipenem/Cilastatin Sodium 500 (mg/ Sodium Chloride) 100 mls @ 100 mls/hr IVPB Q6H [facility]; Protocol Last Admin: 12/06/18 05:00 Dose: 100 mls/hr Sodium Chloride (Sodium Chloride 0.9%) 1,000 mls @ 175 mls/hr IV .Q5H43M [facility] Last Admin: 12/06/18 04:00 Dose: 175 mls/hr Lactic Acid (Lac-Hydrin 12% Lotion (225 G)) 0 gm EXT DAILY [facility] Last Admin: 12/05/18 17:31 Dose: Not Given Morphine Sulfate (Morphine) 2 mg IVP Q3H PRN PRN Reason: moderate to severe pain Last Admin: 12/05/18 04:45 Dose: 2 mg Silver Sulfadiazine (Silvadene 1% 20 Gm) 8 ea TOP BID [facility] Last Admin: 12/05/18 18:54 Dose: Not Given Silver Sulfadiazine (Silvadene 1% 20 Gm) 0 ea TOP DAILY [facility] Last Admin: 12/05/18 18:52 Dose: Not Given - Labs Labs: 12/06/18 03:34 12/06/18 03:34 PT 15.5 SECONDS (9.7-12.2) H 12/05/18 09:23 INR 1.4 12/05/18 09:23 APTT 35 SECONDS (21-34) H 12/05/18 09:23 - Constitutional Appears: No Acute Distress, Older Than Stated Age, Cachectic - Head Exam Head Exam: ATRAUMATIC, NORMOCEPHALIC - Eye Exam Eye Exam: EOMI - ENT Exam ENT Exam: Mucous Membranes Dry - Respiratory Exam Respiratory Exam: NORMAL BREATHING PATTERN - Cardiovascular Exam Cardiovascular Exam: REGULAR RHYTHM - GI/Abdominal Exam GI & Abdominal Exam: Firm (similar to previous exam), Guarding, Tenderness - Extremities Exam Extremities Exam: Pedal Edema. absent: Calf Tenderness - Neurological Exam Neurological Exam: Alert, Awake, Oriented x3 - Psychiatric Exam Psychiatric exam: Normal Affect, Normal Mood - Skin Skin Exam: Dry, Intact, Normal Color, Warm Assessment and Plan - Assessment and Plan (Free Text) Assessment: 58 F with PMH chronic pancreatitis and COPD with venous pancreatic hemorrhage Plan: Plan: Carefully monitor UOP, maintain 0.5 cc/kg/hr IVF changed to NS overnight d/t increasing lactate, lactate resolved continue fluid resuscitation as tolerated continue intraabdominal pressures [id number] continue UOP measurments q2 hours contie pain control tranfuse blood as needed will d/w Dr. Gamboa, further recs per him Tiffany Dumont, PGY 1 <José Manuel Gamboa - Last Filed: 12/06/18 18:35> Objective - Vital Signs/Intake and Output Vital Signs (last 24 hours): Temp Pulse Resp BP Pulse Ox 98.4 F 88 20 90/61 L 100 12/06/18 15:58 12/06/18 18:00 12/06/18 18:00 12/06/18 17:20 12/06/18 18:00 Intake and Output: 12/06/18 12/06/18 06:59 18:59 Intake Total 2775 2575 Output Total 250 245 Balance 2525 2330 - Medications Medications: Current Medications Acetaminophen (Tylenol 325 Mg Supp) 325 mg OR Q4 PRN PRN Reason: Fever >100.4 F Acetaminophen (Tylenol 650 Mg Supp) 650 mg OR ONCE PRN PRN Reason: pre-transfusion Albuterol/Ipratropium (Duoneb 3 Mg/0.5 Mg (3 Ml) Ud) 3 ml INH RQ6 [facility] Last Admin: 12/06/18 16:34 Dose: 3 ml Famotidine (Pepcid) 20 mg IVP Q12 [facility] Last Admin: 12/06/18 09:10 Dose: 20 mg Hydromorphone HCl (Dilaudid) 0.5 mg IVP Q3H PRN PRN Reason: Pain, severe (8-10) Last Admin: 12/06/18 16:48 Dose: 0.5 mg Imipenem/Cilastatin Sodium 500 (mg/ Sodium Chloride) 100 mls @ 100 mls/hr IVPB Q6H [facility]; Protocol Last Admin: 12/06/18 16:16 Dose: 100 mls/hr Sodium Chloride (Sodium Chloride 0.9%) 1,000 mls @ 175 mls/hr IV .Q5H43M [facility] Last Admin: 12/06/18 16:17 Dose: 175 mls/hr Lactic Acid (Lac-Hydrin 12% Lotion (225 G)) 0 gm EXT DAILY [facility] Last Admin: 12/06/18 14:59 Dose: 1 ml Silver Sulfadiazine (Silvadene 1% 20 Gm) 8 ea TOP BID [facility] Last Admin: 12/06/18 17:07 Dose: Not Given Silver Sulfadiazine (Silvadene 1% 20 Gm) 0 ea TOP DAILY [facility] Last Admin: 12/06/18 14:59 Dose: 1 ml - Labs Labs: 12/06/18 11:24 12/06/18 11:24 PT 15.5 SECONDS (9.7-12.2) H 12/05/18 09:23 INR 1.4 12/05/18 09:23 APTT 35 SECONDS (21-34) H 12/05/18 09:23 Assessment and Plan - Assessment and Plan (Free Text) Assessment: Patient examined at bedside. Agree with resident note and physical exam. Abdomen remains distended and firm, but non-tender. Hgb acceptable at 8.9, U/O also acceptable. No evidence of further bleed. Bladder pressure < 20. Ok to reduce IVF to 125. Need to be mindful of compartment syndrome if she is over resuscitated. Patient note abdominal pain. will adjust pain meds
[2018-12-06] MEDS: LIPASE/PROTEASE/AMYLASE 4,200 U ECC PO SCH ×3 (08:59→17:06)
[2018-12-06] MEDS: Albumin Human 25% (12.5 gm/50 ml) IV SCH ×4 (09:10→12:10)
[2018-12-06] MEDS: Silver Sulfadiazine 1% Cream (20 gm) TOP SCH ×3 (10:25→17:07)
--- NOTE | 2018-12-06 10:49 | PN ---
DATE: 12/06/2018 LOCATION: ICU 14, bed A. SUBJECTIVE: This 58-year-old female seen and examined in rounds with recurrent severe abdominal pain on and off, dyspepsia with nausea, no reported active bleeding so far this morning and no reported chest pain or palpitation. The patient's most recently CAT scan of the pancreas, report is seen with enlarged head and reported pancreatic necrosis, with possible hematoma inferior to the pancreatic head with diffuse active elements. Most recent lab results showed hemoglobin dropped to 8.9, hematocrit 26.7 with normal platelet count and white blood cells with creatinine 0.3. Lactic acid the latest is 0.8, calcium 7.5 with total protein 3.8, albumin 1.7. PHYSICAL EXAMINATION: GENERAL: A 58-year-old female complaining of severe crampy abdominal pain. VITAL SIGNS: Afebrile with pulse of 90, respiratory rate 20 to 22 with blood pressure 98/66. HEENT: Showed pale, dry oral mucous membrane. Nonicteric sclerae. LUNGS: Few scattered crepitation. Decreased air entry at bases. HEART: Positive S1 and S2. ABDOMEN: Soft with mild generalized severe tenderness. No mass or organomegaly. No rebound tenderness or guarding. Evidence of anasarca is seen. Bowel sounds are hypoactive. EXTREMITIES: Lower extremity edematous changes. No clubbing or cyanosis. NEUROLOGIC: No reported new neurological deficits, sensory or motor. No reported new focal deficits. IMPRESSION: 1. Acute pancreatitis leading to hemorrhagic pancreatitis with anasarca. 2. Electrolyte imbalance, secondary to above. 3. Malnutrition with severe hypoalbuminemia, hypoproteinemia. 4. Anemia, secondary to above. 5. Chronic obstructive pulmonary disease, by history. 6. Abnormal radiology study results of the abdomen. 7. Reported history of depression, severe anxiety, deep venous thrombosis. SUGGESTIONS: 1. Continue current management. 2. Pancreatobiliary surgical consultation. 3. Repeat serum lipase and amylase level. 4. Follow up in cancer markers. Further recommendation to follow. No aggressive GI workup in the meantime. Yin Patel MD [facility] # [id number]
[2018-12-06] MEDS: Albuterol-Ipratrop 3 mg / 0.5 (3 ml) UD INH SCH ×2 (11:07→16:34)
[2018-12-06 11:28] LABS: BASO % 0.5 % (0.0-2.0); EOS # 0.1 K/uL (0.0-0.7); HEMOGLOBIN 9.1 g/dL (11.0-16.0); LYMPH # 0.6 K/uL (1.0-4.3); LYMPH % 6.9 % (20.0-40.0); MEAN CELL VOLUME 85.7 fL (81.0-99.0); MEAN CORPUSCULAR HEMOGLOBIN 28.5 pg (27.0-31.0); MEAN CORPUSCULAR HGB CONC 33.2 g/dL (33.0-37.0); MEAN PLATELET VOLUME 7.3 fL (7.2-11.7); MONO # 0.5 K/uL (0.0-0.8); MONO % 5.9 % (0.0-10.0); NEUT # 7.9 K/uL (1.8-7.0); NEUT % 85.7 % (50.0-75.0); NRBC % 0.1 % (0.0-2.0); PLATELET COUNT 214 K/uL (130-400); RED CELL DISTRIBUTION WIDTH 17.7 % (11.5-14.5); WHITE BLOOD COUNT 9.3 K/uL (4.8-10.8)
[2018-12-06 11:43] LABS: ALB/GLOB RATIO 1.1 (1.0-2.1); ALBUMIN 2.3 g/dL (3.5-5.0); ALT/SGPT 12 U/L (9-52); AST/SGOT 31 U/L (14-36); BLOOD UREA NITROGEN 11 mg/dL (7-17); CALCIUM 6.8 mg/dl (8.6-10.4); GFR NON-AFRICAN AMERICAN > 60
[2018-12-06 11:57] LABS: ANISOCYTOSIS SLIGHT; LYMPHOCYTE 8 % (20-40); MONOCYTE 5 % (0-10); NEUTROPHIL 87 % (50-75); PLATELET ESTIMATE NORMAL (NORMAL); TOTAL CELLS COUNTED 100
[2018-12-06 11:58] LABS: HYPOCHROMIC SLIGHT; POIKILOCYTOSIS SLIGHT; POLYCHROMIC SLIGHT
[2018-12-06 11:59] LABS: OVALOCYTES SLIGHT
[2018-12-06] MEDS: Magnesium Sulfate 1 gm in D5W 1 GM/100 ML BAG IVPB SCH ×4 (12:10→15:45)
[2018-12-06] MEDS: Ammonium Lactate 12% Lotion (225 g) EXT SCH (14:59)
[2018-12-06] MEDS ORDERED: Magnesium Sulfate 1 gm in D5W 1 GM/100 ML BAG IVPB SCH (15:30)
--- NOTE | 2018-12-06 15:30 | CP.PCM.PN ---
Subjective - Date & Time of Evaluation Date of Evaluation: 12/06/18 Time of Evaluation: 15:21 - Subjective Subjective: C/o some abd pain, request for drinking juice, denies any black stools, confirmed with staff as well. Bladder pressure maintained around 16cm Objective - Vital Signs/Intake and Output Vital Signs (last 24 hours): Temp Pulse Resp BP Pulse Ox 98.5 F 94 H 22 99/67 L 98 12/06/18 11:50 12/06/18 15:00 12/06/18 15:00 12/06/18 14:20 12/06/18 15:00 Intake and Output: 12/06/18 12/06/18 06:59 18:59 Intake Total 2775 1825 Output Total 250 200 Balance 2525 1625 - Medications Medications: Current Medications Acetaminophen (Tylenol 325 Mg Supp) 325 mg GA Q4 PRN PRN Reason: Fever >100.4 F Acetaminophen (Tylenol 650 Mg Supp) 650 mg GA ONCE PRN PRN Reason: pre-transfusion Albuterol/Ipratropium (Duoneb 3 Mg/0.5 Mg (3 Ml) Ud) 3 ml INH RQ6 [facility] Last Admin: 12/06/18 11:07 Dose: 3 ml Famotidine (Pepcid) 20 mg IVP Q12 [facility] Last Admin: 12/06/18 09:10 Dose: 20 mg Hydromorphone HCl (Dilaudid) 0.5 mg IVP Q3H PRN PRN Reason: Pain, severe (8-10) Last Admin: 12/06/18 14:04 Dose: 0.5 mg Imipenem/Cilastatin Sodium 500 (mg/ Sodium Chloride) 100 mls @ 100 mls/hr IVPB Q6H [facility]; Protocol Last Admin: 12/06/18 10:18 Dose: 100 mls/hr Sodium Chloride (Sodium Chloride 0.9%) 1,000 mls @ 175 mls/hr IV .Q5H43M [facility] Last Admin: 12/06/18 09:10 Dose: 175 mls/hr Magnesium Sulfate/Dextrose (Magnesium Sulfate 1 Gm/100 Ml D5w) 1 gm in 100 mls @ 100 mls/hr IVPB Q1H [facility] Stop: 12/06/18 15:59 Last Admin: 12/06/18 14:57 Dose: 100 mls/hr Magnesium Sulfate/Dextrose (Magnesium Sulfate 1 Gm/100 Ml D5w) 1 gm in 100 mls @ 300 mls/hr IVPB Q30M [facility] Stop: 12/06/18 16:19 Lactic Acid (Lac-Hydrin 12% Lotion (225 G)) 0 gm EXT DAILY [facility] Last Admin: 12/06/18 14:59 Dose: 1 ml Morphine Sulfate (Morphine) 2 mg IVP Q3H PRN PRN Reason: moderate to severe pain Last Admin: 12/05/18 04:45 Dose: 2 mg Silver Sulfadiazine (Silvadene 1% 20 Gm) 8 ea TOP BID [facility] Last Admin: 12/06/18 10:25 Dose: Not Given Silver Sulfadiazine (Silvadene 1% 20 Gm) 0 ea TOP DAILY [facility] Last Admin: 12/06/18 14:59 Dose: 1 ml - Labs Labs: 12/06/18 11:24 12/06/18 11:24 PT 15.5 SECONDS (9.7-12.2) H 12/05/18 09:23 INR 1.4 12/05/18 09:23 APTT 35 SECONDS (21-34) H 12/05/18 09:23 - Additional Findings Additional findings: * HEENT CASSIDY * Neck Supple * CVS regular, no gallop * Chest reduced in both basis * PA soft, distended, mild diffuse pain * Ext no edema, legs wrapped with dressing * Skin turgor low * MARKETING CLERK awake oriented x3 Assessment and Plan - Assessment and Plan (Free Text) Assessment: * History of chronic recurrent pancreatitis, unclear etiology * H/o pepctic ulcer disease * suspected necrotic and hemorrhagic panceatitis, hgb maintaine with 3 units prbc * Clinical dehydration * Chonic leg ulcers * GI prophylaxis * scd's for dvt prophylaxis, s/p ivc filter for dvt in the past. Plan: * IVF * replace electrolytes * monitor hemoglobin * Still unclear etiology of pancreatitis * Primaxin given in suspecion of the necrotizing pancreatitis.
--- NOTE | 2018-12-06 15:39 | CP.PCM.PN ---
Subjective - Date & Time of Evaluation Date of Evaluation: 12/06/18 Time of Evaluation: 13:30 - Subjective Subjective: Patient seen and examined Status post transfusion of packed RBCs Seen by surgery and interventional radiology Patient is awake and responsive and denies any shortness of breath Afebrile Objective - Vital Signs/Intake and Output Vital Signs (last 24 hours): Temp Pulse Resp BP Pulse Ox 98.5 F 94 H 22 99/67 L 98 12/06/18 11:50 12/06/18 15:00 12/06/18 15:00 12/06/18 14:20 12/06/18 15:00 Intake and Output: 12/06/18 12/06/18 06:59 18:59 Intake Total 2775 1825 Output Total 250 200 Balance 2525 1625 - Medications Medications: Current Medications Acetaminophen (Tylenol 325 Mg Supp) 325 mg [place] Q4 PRN PRN Reason: Fever >100.4 F Acetaminophen (Tylenol 650 Mg Supp) 650 mg NC ONCE PRN PRN Reason: pre-transfusion Albuterol/Ipratropium (Duoneb 3 Mg/0.5 Mg (3 Ml) Ud) 3 ml INH RQ6 MARY Last Admin: 12/06/18 11:07 Dose: 3 ml Famotidine (Pepcid) 20 mg IVP Q12 MARY Last Admin: 12/06/18 09:10 Dose: 20 mg Hydromorphone HCl (Dilaudid) 0.5 mg IVP Q3H PRN PRN Reason: Pain, severe (8-10) Last Admin: 12/06/18 14:04 Dose: 0.5 mg Imipenem/Cilastatin Sodium 500 (mg/ Sodium Chloride) 100 mls @ 100 mls/hr IVPB Q6H [facility]; Protocol Last Admin: 12/06/18 10:18 Dose: 100 mls/hr Sodium Chloride (Sodium Chloride 0.9%) 1,000 mls @ 175 mls/hr IV .Q5H43M MARY Last Admin: 12/06/18 15:29 Dose: Not Given Magnesium Sulfate/Dextrose (Magnesium Sulfate 1 Gm/100 Ml D5w) 1 gm in 100 mls @ 100 mls/hr IVPB Q1H MARY Stop: 12/06/18 15:59 Last Admin: 12/06/18 14:57 Dose: 100 mls/hr Lactic Acid (Lac-Hydrin 12% Lotion (225 G)) 0 gm EXT DAILY MARY Last Admin: 12/06/18 14:59 Dose: 1 ml Silver Sulfadiazine (Silvadene 1% 20 Gm) 8 ea TOP BID MARY Last Admin: 12/06/18 10:25 Dose: Not Given Silver Sulfadiazine (Silvadene 1% 20 Gm) 0 ea TOP DAILY MARY Last Admin: 12/06/18 14:59 Dose: 1 ml - Labs Labs: 12/06/18 11:24 12/06/18 11:24 PT 15.5 SECONDS (9.7-12.2) H 12/05/18 09:23 INR 1.4 12/05/18 09:23 APTT 35 SECONDS (21-34) H 12/05/18 09:23 - Head Exam Head Exam: ATRAUMATIC, NORMOCEPHALIC - ENT Exam ENT Exam: Mucous Membranes Moist - Neck Exam Neck Exam: Normal Inspection - Respiratory Exam Respiratory Exam: Clear to Ausculation Bilateral - Cardiovascular Exam Cardiovascular Exam: REGULAR RHYTHM - GI/Abdominal Exam GI & Abdominal Exam: Tenderness Assessment and Plan (1) Anemia Assessment & Plan: Status post transfusion of packed RBCs Seen by surgery for severe pancreatitis and possible bleed Continue present treatment and ICU observation Breathing much improved Status: Acute (2) Chr obstructive pulmonary disease w/ acute lower respiratory infxn Status: Acute (3) DVT (deep venous thrombosis) Status: Acute (4) Cellulitis Status: Acute (5) Hyponatremia Status: Acute (6) Acute pancreatitis Status: Acute
--- NOTE | 2018-12-06 18:13 | RAD ---
Date of service: 12/06/2018 HISTORY: dyspnea COMPARISON: Portable chest 12/05/2018. FINDINGS: LUNGS: Borderline medial right basilar infiltrate developing. PLEURA: No significant pleural effusion identified, no pneumothorax apparent. CARDIOVASCULAR: No aortic atherosclerotic calcification present. Normal cardiac size. No pulmonary vascular congestion. OSSEOUS STRUCTURES: No significant abnormalities. VISUALIZED UPPER ABDOMEN: Normal. OTHER FINDINGS: None. IMPRESSION: Borderline medial right basilar infiltrate developing.
--- NOTE | 2018-12-06 21:16 | CP.PCM.PN ---
Subjective - Date & Time of Evaluation Date of Evaluation: 12/06/18 Time of Evaluation: 21:15 - Subjective Subjective: Patient seen and examined Status post transfusion of packed RBCs Still has dyspnea Objective - Vital Signs/Intake and Output Vital Signs (last 24 hours): Temp Pulse Resp BP Pulse Ox 98.5 F 94 H 22 99/67 L 98 12/06/18 11:50 12/06/18 15:00 12/06/18 15:00 12/06/18 14:20 12/06/18 15:00 Intake and Output: 12/06/18 12/06/18 06:59 18:59 Intake Total 2775 1825 Output Total 250 200 Balance 2525 1625 - Medications Medications: Current Medications Acetaminophen (Tylenol 325 Mg Supp) 325 mg OR Q4 PRN PRN Reason: Fever >100.4 F Acetaminophen (Tylenol 650 Mg Supp) 650 mg OR ONCE PRN PRN Reason: pre-transfusion Albuterol/Ipratropium (Duoneb 3 Mg/0.5 Mg (3 Ml) Ud) 3 ml INH RQ6 MARY Last Admin: 12/06/18 11:07 Dose: 3 ml Famotidine (Pepcid) 20 mg IVP Q12 MARY Last Admin: 12/06/18 09:10 Dose: 20 mg Hydromorphone HCl (Dilaudid) 0.5 mg IVP Q3H PRN PRN Reason: Pain, severe (8-10) Last Admin: 12/06/18 14:04 Dose: 0.5 mg Imipenem/Cilastatin Sodium 500 (mg/ Sodium Chloride) 100 mls @ 100 mls/hr IVPB Q6H [facility]; Protocol Last Admin: 12/06/18 10:18 Dose: 100 mls/hr Sodium Chloride (Sodium Chloride 0.9%) 1,000 mls @ 175 mls/hr IV .Q5H43M MARY Last Admin: 12/06/18 15:29 Dose: Not Given Magnesium Sulfate/Dextrose (Magnesium Sulfate 1 Gm/100 Ml D5w) 1 gm in 100 mls @ 100 mls/hr IVPB Q1H MARY Stop: 12/06/18 15:59 Last Admin: 12/06/18 14:57 Dose: 100 mls/hr Lactic Acid (Lac-Hydrin 12% Lotion (225 G)) 0 gm EXT DAILY MARY Last Admin: 12/06/18 14:59 Dose: 1 ml Silver Sulfadiazine (Silvadene 1% 20 Gm) 8 ea TOP BID MARY Last Admin: 12/06/18 10:25 Dose: Not Given Silver Sulfadiazine (Silvadene 1% 20 Gm) 0 ea TOP DAILY [facility] Last Admin: 12/06/18 14:59 Dose: 1 ml - Labs Labs: 12/06/18 11:24 12/06/18 11:24 PT 15.5 SECONDS (9.7-12.2) H 12/05/18 09:23 INR 1.4 12/05/18 09:23 APTT 35 SECONDS (21-34) H 12/05/18 09:23 - Head Exam Head Exam: ATRAUMATIC, NORMOCEPHALIC - ENT Exam ENT Exam: Mucous Membranes Moist - Neck Exam Neck Exam: Normal Inspection - Respiratory Exam Respiratory Exam: Clear to Ausculation Bilateral - Cardiovascular Exam Cardiovascular Exam: REGULAR RHYTHM - GI/Abdominal Exam GI & Abdominal Exam: Tenderness Assessment and Plan (1) Anemia Assessment & Plan: Status post transfusion of packed RBCs Seen by surgery for severe pancreatitis and possible bleed Continue present treatment and ICU observation Breathing much improved Status: Acute (2) Chr obstructive pulmonary disease w/ acute lower respiratory infxn Status: Acute (3) DVT (deep venous thrombosis) Status: Acute (4) Cellulitis Status: Acute (5) Hyponatremia Status: Acute (6) Acute pancreatitis Status: Acute Objective - Vital Signs/Intake and Output Vital Signs (last 24 hours): Temp Pulse Resp BP Pulse Ox 98.4 F 88 20 90/61 L 100 12/06/18 15:58 12/06/18 18:00 12/06/18 18:00 12/06/18 17:20 12/06/18 18:00 Intake and Output: 12/06/18 12/07/18 18:59 06:59 Intake Total 2575 Output Total 245 Balance 2330 - Medications Medications: Current Medications Acetaminophen (Tylenol 325 Mg Supp) 325 mg OR Q4 PRN PRN Reason: Fever >100.4 F Acetaminophen (Tylenol 650 Mg Supp) 650 mg OR ONCE PRN PRN Reason: pre-transfusion Albuterol/Ipratropium (Duoneb 3 Mg/0.5 Mg (3 Ml) Ud) 3 ml INH RQ6 MARY Last Admin: 12/06/18 16:34 Dose: 3 ml Famotidine (Pepcid) 20 mg IVP Q12 MARY Last Admin: 12/06/18 21:00 Dose: 20 mg Hydromorphone HCl (Dilaudid) 0.5 mg IVP Q2 PRN PRN Reason: Pain, severe (8-10) Last Admin: 12/06/18 19:52 Dose: 0.5 mg Imipenem/Cilastatin Sodium 500 (mg/ Sodium Chloride) 100 mls @ 100 mls/hr IVPB Q6H MARY; Protocol Last Admin: 12/06/18 16:16 Dose: 100 mls/hr Sodium Chloride (Sodium Chloride 0.9%) 1,000 mls @ 125 mls/hr IV .Q8H MARY Last Admin: 12/06/18 19:30 Dose: 125 mls/hr Lactic Acid (Lac-Hydrin 12% Lotion (225 G)) 0 gm EXT DAILY MARY Last Admin: 12/06/18 14:59 Dose: 1 ml Silver Sulfadiazine (Silvadene 1% 20 Gm) 8 ea TOP BID MARY Last Admin: 12/06/18 17:07 Dose: Not Given Silver Sulfadiazine (Silvadene 1% 20 Gm) 0 ea TOP DAILY MARY Last Admin: 12/06/18 14:59 Dose: 1 ml - Labs Labs: 12/06/18 11:24 12/06/18 11:24 PT 15.5 SECONDS (9.7-12.2) H 12/05/18 09:23 INR 1.4 12/05/18 09:23 APTT 35 SECONDS (21-34) H 12/05/18 09:23
--- NOTE | 2018-12-06 21:28 | PN ---
DATE: 12/06/2018 SUBJECTIVE: The patient seen. She is doing much better. Very calm, seen in ICU bed, room 14. Still asking for pain medication, but the patient has been aware that her blood pressure is at the low side. The patient's BP is bordering on the 90s and not to take too much pain medications. The patient also is asking for some soda today. PHYSICAL EXAMINATION: VITAL SIGNS: Temperature is 98.5, pulse 94, blood pressure 99/67, respirations 20, oxygen saturation is 98%. GENERAL: The patient has been taking her pain medication sparingly. She is off Klonopin and off morphine. LABORATORY DATA: Also, I reviewed her labs. Her hemoglobin has gone up, now 9.1 and hematocrit is 27.4. REVIEW OF SYSTEMS: GENERAL: She is alert, verbal, much calmer. Seen in her room, not yelling or screaming, playing with her phone. Not in acute respiratory distress, states she is feeling much better. SKIN: No diaphoresis. No pruritus. HEENT: No headache. No dizziness. NECK: Supple. RESPIRATORY: No dyspnea. CARDIOVASCULAR: No chest pain. GASTROINTESTINAL: The patient is still n.p.o. Still has abdominal pain, controlled on meds. EXTREMITIES: The patient moving extremities. MUSCULOSKELETAL: Generalized weakness. NEUROLOGICAL: Alert and oriented x3. GENITOURINARY: No urinary problems. MENTAL STATUS EXAMINATION: Cachectic-looking female who looks stated age, oriented x3. Mood is calmer. Affect is reactive. Speech spontaneous. Thought process coherent. Thought content, the patient states she is feeling much better with Dilaudid p.r.n. which she is taking 0.5 IV every 3 hours p.r.n. and taking sparingly. No psychosis. No suicidal or homicidal ideation. Attention and memory seems to be improving. Insight and judgment improving. Impulse control is fair at this time. IMPRESSION: History of recurrent depression and anxiety, opiate dependence, pancreatitis. PLAN AND RECOMMENDATIONS: The patient seen. Meds reviewed. Continue present management. The patient still in ICU. Continue Dilaudid p.r.n. as ordered. We will keep her off the Klonopin. The patient seems to be improving clinically. The patient also followed by Gastrointestinal. Grant Adhikari MD [facility] # [id number]
--- NOTE | 2018-12-06 22:13 | CP.PCM.PN ---
Subjective - Date & Time of Evaluation Date of Evaluation: 12/06/18 Time of Evaluation: 12:00 - Subjective Subjective: dictated Objective - Vital Signs/Intake and Output Vital Signs (last 24 hours): Temp Pulse Resp BP Pulse Ox 98.9 F 86 14 102/75 100 12/06/18 20:00 12/06/18 21:20 12/06/18 21:20 12/06/18 21:20 12/06/18 21:20 Intake and Output: 12/06/18 12/07/18 18:59 06:59 Intake Total 2575 375 Output Total 245 75 Balance 2330 300 - Medications Medications: Current Medications Acetaminophen (Tylenol 325 Mg Supp) 325 mg [place] Q4 PRN PRN Reason: Fever >100.4 F Acetaminophen (Tylenol 650 Mg Supp) 650 mg [place] ONCE PRN PRN Reason: pre-transfusion Albuterol/Ipratropium (Duoneb 3 Mg/0.5 Mg (3 Ml) Ud) 3 ml INH RQ6 MARY Last Admin: 12/06/18 16:34 Dose: 3 ml Famotidine (Pepcid) 20 mg IVP Q12 MARY Last Admin: 12/06/18 21:00 Dose: 20 mg Hydromorphone HCl (Dilaudid) 0.5 mg IVP Q2 PRN PRN Reason: Pain, severe (8-10) Last Admin: 12/06/18 19:52 Dose: 0.5 mg Imipenem/Cilastatin Sodium 500 (mg/ Sodium Chloride) 100 mls @ 100 mls/hr IVPB Q6H MARY; Protocol Last Admin: 12/06/18 16:16 Dose: 100 mls/hr Sodium Chloride (Sodium Chloride 0.9%) 1,000 mls @ 125 mls/hr IV .Q8H MARY Last Admin: 12/06/18 19:30 Dose: 125 mls/hr Lactic Acid (Lac-Hydrin 12% Lotion (225 G)) 0 gm EXT DAILY MARY Last Admin: 12/06/18 14:59 Dose: 1 ml Silver Sulfadiazine (Silvadene 1% 20 Gm) 8 ea TOP BID MARY Last Admin: 12/06/18 17:07 Dose: Not Given Silver Sulfadiazine (Silvadene 1% 20 Gm) 0 ea TOP DAILY MARY Last Admin: 12/06/18 14:59 Dose: 1 ml - Labs Labs: 12/06/18 11:24 12/06/18 11:24 PT 15.5 SECONDS (9.7-12.2) H 12/05/18 09:23 INR 1.4 12/05/18 09:23 APTT 35 SECONDS (21-34) H 12/05/18 09:23
[2018-12-07] MEDS: Albuterol-Ipratrop 3 mg / 0.5 (3 ml) UD INH SCH ×5 (00:51→19:57)
[2018-12-07] MEDS: HYDROmorphone 0.5 mg/0.5 ml ISec IVP PRN ×12 (01:20→22:03)
--- NOTE | 2018-12-07 03:25 | PN ---
DATE: 12/06/2018 SUBJECTIVE: The patient had necrosis and hemorrhage in pancreas with drop in hemoglobin, now she is on IV fluids, status post blood transfusion, and she is feeling better. She is more alert. She is comfortable. She has been seen by hepatobiliary surgery. No fever. No chills. PHYSICAL EXAMINATION: VITAL SIGNS: Blood pressure 102/75, pulse 86, respiratory rate 14, and temperature 98.9. LUNGS: Decreased air entry. CARDIOVASCULAR SYSTEM: S1, S2. Regular. ABDOMEN: Soft. ASSESSMENT: 1. Pancreatic necrosis, pancreatitis. 2. Dehydration. 3. Chronic obstructive pulmonary disease. 4. Depression. PLAN: To supportive care, ICU, blood pressure, monitor the patient. Connor Baker MD
[2018-12-07] MEDS: Sodium Chloride 0.9% 1,000 ML IV SCH ×4 (04:22→23:12)
[2018-12-07 06:03] LABS: BASO % 0.2 % (0.0-2.0); EOS # 0.1 K/uL (0.0-0.7); EOS % 1.6 % (0.0-4.0); HEMOGLOBIN 9.9 g/dL (11.0-16.0); LYMPH # 0.7 K/uL (1.0-4.3); MEAN CELL VOLUME 87.1 fL (81.0-99.0); MEAN CORPUSCULAR HEMOGLOBIN 27.5 pg (27.0-31.0); MEAN CORPUSCULAR HGB CONC 31.6 g/dL (33.0-37.0); MEAN PLATELET VOLUME 7.2 fL (7.2-11.7); MONO # 0.6 K/uL (0.0-0.8); MONO % 7.8 % (0.0-10.0); NEUT # 6.5 K/uL (1.8-7.0); NEUT % 81.4 % (50.0-75.0); NRBC % 0.1 % (0.0-2.0); PLATELET COUNT 218 K/uL (130-400); RBC 3.59 Mil/uL (3.80-5.20); RED CELL DISTRIBUTION WIDTH 17.8 % (11.5-14.5)
[2018-12-07 06:22] LABS: ALB/GLOB RATIO 1.3 (1.0-2.1); ALBUMIN 2.8 g/dL (3.5-5.0); ALT/SGPT 18 U/L (9-52); AST/SGOT 23 U/L (14-36); BLOOD UREA NITROGEN 11 mg/dL (7-17); CALCIUM 7.9 mg/dl (8.6-10.4); GFR NON-AFRICAN AMERICAN > 60
[2018-12-07 08:03] LABS: ANISOCYTOSIS SLIGHT; EOSINOPHIL 2 % (0-4); HYPOCHROMIC SLIGHT; LYMPHOCYTE 11 % (20-40); MONOCYTE 9 % (0-10); NEUTROPHIL 78 % (50-75); PLATELET ESTIMATE NORMAL (NORMAL); POIKILOCYTOSIS SLIGHT; TARGET CELLS SLIGHT; TOTAL CELLS COUNTED 100
[2018-12-07 08:04] LABS: BURR CELLS SLIGHT; LARGE PLATELETS PRESENT; MICROCYTOSIS SLIGHT; POLYCHROMIC SLIGHT; TOXIC GRANULATION PRESENT
[2018-12-07 08:05] LABS: STOMATOCYTES SLIGHT
--- NOTE | 2018-12-07 08:13 | CP.PCM.PN ---
<Skip Camp - Last Filed: 12/07/18 08:09> Subjective - Date & Time of Evaluation Date of Evaluation: 12/07/18 Time of Evaluation: 08:09 - Subjective Subjective: SURGERY NOTE FOR DR. WALDROP 58F seen and examined at bedside. Pain controlled with medication, denies nausea or vomiting. Objective - Vital Signs/Intake and Output Vital Signs (last 24 hours): Temp Pulse Resp BP Pulse Ox 97.4 F L 73 9 L 104/69 100 12/07/18 04:00 12/07/18 06:20 12/07/18 06:20 12/07/18 06:20 12/07/18 06:20 Intake and Output: 12/07/18 12/07/18 06:59 18:59 Intake Total 1450 125 Output Total 250 20 Balance 1200 105 - Medications Medications: Current Medications Acetaminophen (Tylenol 325 Mg Supp) 325 mg NE Q4 PRN PRN Reason: Fever >100.4 F Acetaminophen (Tylenol 650 Mg Supp) 650 mg NE ONCE PRN PRN Reason: pre-transfusion Albuterol/Ipratropium (Duoneb 3 Mg/0.5 Mg (3 Ml) Ud) 3 ml INH RQ6 MARY Last Admin: 12/07/18 07:30 Dose: 3 ml Famotidine (Pepcid) 20 mg IVP Q12 MARY Last Admin: 12/06/18 21:00 Dose: 20 mg Hydromorphone HCl (Dilaudid) 0.5 mg IVP Q2 PRN PRN Reason: Pain, severe (8-10) Last Admin: 12/07/18 07:52 Dose: 0.5 mg Imipenem/Cilastatin Sodium 500 (mg/ Sodium Chloride) 100 mls @ 100 mls/hr IVPB Q6H MARY; Protocol Last Admin: 12/07/18 04:00 Dose: 100 mls/hr Sodium Chloride (Sodium Chloride 0.9%) 1,000 mls @ 125 mls/hr IV .Q8H MARY Last Admin: 12/07/18 04:22 Dose: 125 mls/hr Lactic Acid (Lac-Hydrin 12% Lotion (225 G)) 0 gm EXT DAILY MARY Last Admin: 12/06/18 14:59 Dose: 1 ml Silver Sulfadiazine (Silvadene 1% 20 Gm) 8 ea TOP BID MARY Last Admin: 12/06/18 17:07 Dose: Not Given Silver Sulfadiazine (Silvadene 1% 20 Gm) 0 ea TOP DAILY [facility] Last Admin: 12/06/18 14:59 Dose: 1 ml - Labs Labs: 12/07/18 05:52 12/07/18 05:52 PT 15.5 SECONDS (9.7-12.2) H 12/05/18 09:23 INR 1.4 12/05/18 09:23 APTT 35 SECONDS (21-34) H 12/05/18 09:23 - Constitutional Appears: Non-toxic, No Acute Distress - Respiratory Exam Respiratory Exam: Clear to Ausculation Bilateral, NORMAL BREATHING PATTERN - Cardiovascular Exam Cardiovascular Exam: REGULAR RHYTHM, +S1, +S2 - GI/Abdominal Exam GI & Abdominal Exam: Soft, Tenderness. absent: Distended, Firm, Guarding, Rigid, Rebound - Neurological Exam Neurological Exam: Alert, Awake - Skin Skin Exam: Dry, Intact, Normal Color, Warm Assessment and Plan - Assessment and Plan (Free Text) Assessment: 58F presents with pancreatitis, r/o hemorrhagic Plan: - monitor urine output, goal 0.5cc/kg/hr - monitor bladder pressure - continue IVF resuscitation - Serial abdominal exams - Monitor H&H, Transfuse as needed Further recs discuss with Dr. Cooper Camp, PGY <José Manuel Gamboa - Last Filed: 12/08/18 10:03> Objective - Vital Signs/Intake and Output Vital Signs (last 24 hours): Temp Pulse Resp BP Pulse Ox 98.5 F 91 H 21 117/85 99 12/08/18 08:00 12/08/18 09:03 12/08/18 09:03 12/08/18 09:03 12/08/18 09:00 Intake and Output: 12/08/18 12/08/18 06:59 18:59 Intake Total 1575 575 Output Total 322 110 Balance 1253 465 - Medications Medications: Current Medications Acetaminophen (Tylenol 325 Mg Supp) 325 mg NE Q4 PRN PRN Reason: Fever >100.4 F Acetaminophen (Tylenol 650 Mg Supp) 650 mg NE ONCE PRN PRN Reason: pre-transfusion Albuterol/Ipratropium (Duoneb 3 Mg/0.5 Mg (3 Ml) Ud) 3 ml INH RQ6 MARY Last Admin: 12/08/18 07:25 Dose: 3 ml Docusate Sodium (Colace) 100 mg PO BID MARY Last Admin: 12/08/18 09:07 Dose: 100 mg Famotidine (Pepcid) 20 mg IVP Q12 MARY Last Admin: 12/08/18 09:07 Dose: 20 mg Hydromorphone HCl (Dilaudid) 0.5 mg IVP Q2 PRN PRN Reason: Pain, severe (8-10) Last Admin: 12/08/18 08:14 Dose: 0.5 mg Imipenem/Cilastatin Sodium 500 (mg/ Sodium Chloride) 100 mls @ 100 mls/hr IVPB Q6H MARY; Protocol Last Admin: 12/08/18 05:36 Dose: 100 mls/hr Sodium Chloride (Sodium Chloride 0.9%) 1,000 mls @ 125 mls/hr IV .Q8H MARY Last Admin: 12/08/18 09:07 Dose: 125 mls/hr Lactic Acid (Lac-Hydrin 12% Lotion (225 G)) 0 gm EXT DAILY MARY Last Admin: 12/08/18 09:07 Dose: 1 ml Silver Sulfadiazine (Silvadene 1% 20 Gm) 8 ea TOP BID MARY Last Admin: 12/07/18 17:13 Dose: Not Given Silver Sulfadiazine (Silvadene 1% 20 Gm) 0 ea TOP DAILY [facility] Last Admin: 12/08/18 09:08 Dose: 1 ml - Labs Labs: 12/08/18 08:03 12/08/18 08:03 PT 15.5 SECONDS (9.7-12.2) H 12/05/18 09:23 INR 1.4 12/05/18 09:23 APTT 35 SECONDS (21-34) H 12/05/18 09:23 Assessment and Plan (1) Hemorrhagic pancreatitis Status: Acute - Assessment and Plan (Free Text) Assessment: I have reviewed the chart and agree that the record accurately reflects my personal performance of the history, physical exam, medical decision making, and the department course for this patient. I have also personally directed, reviewed, and agree with the resident note.
[2018-12-07] MEDS: LIPASE/PROTEASE/AMYLASE 4,200 U ECC PO SCH ×3 (09:00→17:14)
[2018-12-07 09:04] LABS: AMYLASE 79 U/L (30-110); LIPASE 253 U/L (23-300)
--- NOTE | 2018-12-07 09:41 | CP.PCM.PN ---
Subjective - Date & Time of Evaluation Date of Evaluation: 12/07/18 Time of Evaluation: 09:38 - Subjective Subjective: Podiatry Progress Note for Dr. Cuba 58F seen at bedside with attending Dr. Cuba for bilateral leg wounds. Patient is AAO x 3 and NAD. Denies ever having wounds like this before. Denies any further pedal complaints at this time. Reports that the dressing was changed by nursing. Dressing is clean, dry and intact with no drainage noted. Denies any recent N/V/F/C/CP/SOB Objective - Vital Signs/Intake and Output Vital Signs (last 24 hours): Temp Pulse Resp BP Pulse Ox 97.4 F L 88 16 104/77 100 12/07/18 04:00 12/07/18 09:20 12/07/18 09:20 12/07/18 09:20 12/07/18 09:20 Intake and Output: 12/07/18 12/07/18 06:59 18:59 Intake Total 1450 425 Output Total 250 65 Balance 1200 360 - Medications Medications: Current Medications Acetaminophen (Tylenol 325 Mg Supp) [address] Q4 PRN PRN Reason: Fever >100.4 F Acetaminophen (Tylenol 650 Mg Supp) [address] ONCE PRN PRN Reason: pre-transfusion Albuterol/Ipratropium (Duoneb 3 Mg/0.5 Mg (3 Ml) Ud) 3 ml INH RQ6 MARY Last Admin: 12/07/18 07:30 Dose: 3 ml Famotidine (Pepcid) 20 mg IVP Q12 MARY Last Admin: 12/06/18 21:00 Dose: 20 mg Hydromorphone HCl (Dilaudid) 0.5 mg IVP Q2 PRN PRN Reason: Pain, severe (8-10) Last Admin: 12/07/18 07:52 Dose: 0.5 mg Imipenem/Cilastatin Sodium 500 (mg/ Sodium Chloride) 100 mls @ 100 mls/hr IVPB Q6H MARY; Protocol Last Admin: 12/07/18 04:00 Dose: 100 mls/hr Sodium Chloride (Sodium Chloride 0.9%) 1,000 mls @ 125 mls/hr IV .Q8H MARY Last Admin: 12/07/18 04:22 Dose: 125 mls/hr Lactic Acid (Lac-Hydrin 12% Lotion (225 G)) 0 gm EXT DAILY MARY Last Admin: 12/06/18 14:59 Dose: 1 ml Silver Sulfadiazine (Silvadene 1% 20 Gm) 8 ea TOP BID MARY Last Admin: 12/06/18 17:07 Dose: Not Given Silver Sulfadiazine (Silvadene 1% 20 Gm) 0 ea TOP DAILY [facility]ARY Last Admin: 12/06/18 14:59 Dose: 1 ml - Labs Labs: 12/07/18 05:52 12/07/18 05:52 PT 15.5 SECONDS (9.7-12.2) H 12/05/18 09:23 INR 1.4 12/05/18 09:23 APTT 35 SECONDS (21-34) H 12/05/18 09:23 - Constitutional Appears: Well, Non-toxic, No Acute Distress - Extremities Exam Additional comments: Dressing is clean, dry and intact with no active drainage or strike-through noted No malodor AROM at the MTPJ intact - Neurological Exam Neurological Exam: Alert, Awake, Oriented x3 - Psychiatric Exam Psychiatric exam: Normal Affect, Normal Mood Assessment and Plan - Assessment and Plan (Free Text) Assessment: 58F seen at bedside for bilateral leg wounds Plan: Patient seen and evaluated with Dr. Cuba Afebrile, absent leukocytosis Left leg wound cx: Enterococcous Faecalis B/l legs - dressing clean, dry and intact Ammonium lactate and silvadene ordered No plan for surgical intervention at this time Podiatry will continue to follow while patient in house
[2018-12-07] MEDS: Silver Sulfadiazine 1% Cream (20 gm) TOP SCH ×3 (10:00→17:13)
--- NOTE | 2018-12-07 10:51 | CP.PCM.PN ---
Subjective - Date & Time of Evaluation Date of Evaluation: 12/07/18 Time of Evaluation: 10:45 - Subjective Subjective: GI Progress Note for Dr. Olson Patient seen and examined at bedside this morning. Per RN patient uses BiPAP at night and during the day is on NC. Patient states she has abdominal pain only if doctors press on her belly. However at the moment patient not complaining of pain. Per RN she uses the dilaudid PRN. Patient endorsed having a BM yesterday, however, did not know what it looked like because the RN cleaned it up. Objective - Vital Signs/Intake and Output Vital Signs (last 24 hours): Temp Pulse Resp BP Pulse Ox 97.4 F L 88 16 104/77 100 12/07/18 04:00 12/07/18 09:20 12/07/18 09:20 12/07/18 09:20 12/07/18 09:20 Intake and Output: 12/07/18 12/07/18 06:59 18:59 Intake Total 1450 550 Output Total 250 90 Balance 1200 460 - Medications Medications: Current Medications Acetaminophen (Tylenol 325 Mg Supp) 325 mg [place] Q4 PRN PRN Reason: Fever >100.4 F Acetaminophen (Tylenol 650 Mg Supp) 650 mg HI ONCE PRN PRN Reason: pre-transfusion Albuterol/Ipratropium (Duoneb 3 Mg/0.5 Mg (3 Ml) Ud) 3 ml INH RQ6 MARY Last Admin: 12/07/18 07:30 Dose: 3 ml Famotidine (Pepcid) 20 mg IVP Q12 MARY Last Admin: 12/07/18 10:02 Dose: 20 mg Hydromorphone HCl (Dilaudid) 0.5 mg IVP Q2 PRN PRN Reason: Pain, severe (8-10) Last Admin: 12/07/18 10:04 Dose: 0.5 mg Imipenem/Cilastatin Sodium 500 (mg/ Sodium Chloride) 100 mls @ 100 mls/hr IVPB Q6H [facility]ARY; Protocol Last Admin: 12/07/18 04:00 Dose: 100 mls/hr Sodium Chloride (Sodium Chloride 0.9%) 1,000 mls @ 125 mls/hr IV .Q8H MARY Last Admin: 12/07/18 04:22 Dose: 125 mls/hr Lactic Acid (Lac-Hydrin 12% Lotion (225 G)) 0 gm EXT DAILY MARY Last Admin: 12/06/18 14:59 Dose: 1 ml Silver Sulfadiazine (Silvadene 1% 20 Gm) 8 ea TOP BID [facility]ARY Last Admin: 12/06/18 17:07 Dose: Not Given Silver Sulfadiazine (Silvadene 1% 20 Gm) 0 ea TOP DAILY [facility] Last Admin: 12/06/18 14:59 Dose: 1 ml - Labs Labs: 12/07/18 05:52 12/07/18 05:52 PT 15.5 SECONDS (9.7-12.2) H 12/05/18 09:23 INR 1.4 12/05/18 09:23 APTT 35 SECONDS (21-34) H 12/05/18 09:23 - Constitutional Appears: Well, Non-toxic - Head Exam Head Exam: ATRAUMATIC, NORMAL INSPECTION - Eye Exam Eye Exam: EOMI, Normal appearance - Neck Exam Neck Exam: Normal Inspection - Respiratory Exam Respiratory Exam: Clear to Ausculation Bilateral, NORMAL BREATHING PATTERN - GI/Abdominal Exam GI & Abdominal Exam: Soft, Tenderness (epigastric). absent: Rigid - Neurological Exam Neurological Exam: Alert, Awake - Psychiatric Exam Psychiatric exam: Normal Affect, Normal Mood - Skin Skin Exam: Dry, Intact, Normal Color, Warm Assessment and Plan - Assessment and Plan (Free Text) Assessment: 58 yo female with PMHx of DVT (admitted 11/30), chronic pancreatitis with pancreatic insufficiency, anxiety and depression, is being consulted due to abdominal pain. Chronic pancreatitis with pancreatic insufficiency and pancreatic necrosis -NPO except meds -IVF -dilaudid PRN -f/u lipase, amylase levels, has been downtrending on 12/05 lipase 1097 and today / at 253 -CTAP: large retroperitoneal hematoma, no arterial blush -hepatobiliary surgeon following, appreciate recs -continue with enzyme supplement lipase/protease/amylase -continue with pepcid 20 mg IV q12 -CA 19-9 wnl 3.4, CEA elevated at 9.7, CA 125 elevated at 167 -monitor CBC and CMP s/p hypovolemic shock 2/2 STATISTICIAN THEORETICAL called SBP at 70/54 -s/p 2L IVF and 2U PRBC -placed on primaxin -continue to monitor VS Arelis Scott PGY1
--- NOTE | 2018-12-07 11:54 | PN ---
DATE: 12/07/2018 LOCATION: ICU 14, bed A. SUBJECTIVE: This 58-year-old female seen and examined in rounds with the intensive care staff, appears to be awake, alert, oriented with less episodes of abdominal pain. The entire chart is reviewed including, but not limited to the most recent lab and radiology study results with today's lab showed normal amylase 79, normal lipase 251, calcium 7.9, albumin 2.8, CO2 content of 32 indicative of respiratory alkalosis with hemoglobin 9.29, hematocrit 31.3 with normal white blood cells and platelet count. PHYSICAL EXAMINATION: GENERAL: A 58-year-old female. VITAL SIGNS: Afebrile with respiratory rate of 16-18, blood pressure of 110/72 with pulse of 76. HEENT: Showed pale dry oral mucous membrane. Nonicteric sclerae. LUNGS: Few scattered crepitation. Decreased air entry at bases. HEART: Positive S1 and S2. ABDOMEN: Soft with mild generalized tenderness. No mass or organomegaly. No rebound tenderness or guarding. EXTREMITIES: Without significant clubbing, cyanosis or edema. No reported new neurological deficit, sensory or motor. IMPRESSION: 1. Acute pancreatitis, subsiding with evidence of pancreatic necrotic hemorrhagic changes as per radiology study results. 2. Malnutrition with hypoalbuminemia, hypoproteinemia. 3. Electrolyte imbalance. 4. Chronic obstructive pulmonary disease, by history. 5. Anemia secondary to above. 6. Re-exacerbation of peptic ulcer disease. 7. Reported history of severe anxiety syndrome, depression as well as deep venous thrombosis, by history. SUGGESTIONS: 1. Continue current management. 2. Start clear liquid diet to be advanced gradually. 3. Guaiac all the stools daily x3. 4. Follow up on cancer markers. 5. No aggressive GI workup in the meantime until the patient is more stable clinically. Further recommendation to follow. Yin Patel MD
[2018-12-07] MEDS: Ammonium Lactate 12% Lotion (225 g) EXT SCH (14:07)
--- NOTE | 2018-12-07 16:40 | CP.PCM.PN ---
Subjective - Date & Time of Evaluation Date of Evaluation: 12/07/18 Time of Evaluation: 11:20 - Subjective Subjective: Patient seen and examined Patient was placed on BiPAP for shortness of breath Patient is awake and responsive Afebrile Status post transfusion and H&H stable Objective - Vital Signs/Intake and Output Vital Signs (last 24 hours): Temp Pulse Resp BP Pulse Ox 99.0 F 98 H 23 111/76 100 12/07/18 16:00 12/07/18 16:03 12/07/18 16:03 12/07/18 16:03 12/07/18 16:03 Intake and Output: 12/07/18 12/07/18 06:59 18:59 Intake Total 1450 1605 Output Total 250 237 Balance 1200 1368 - Medications Medications: Current Medications Acetaminophen (Tylenol 325 Mg Supp) 325 mg [place] Q4 PRN PRN Reason: Fever >100.4 F Acetaminophen (Tylenol 650 Mg Supp) 650 mg [place] ONCE PRN PRN Reason: pre-transfusion Albuterol/Ipratropium (Duoneb 3 Mg/0.5 Mg (3 Ml) Ud) 3 ml INH RQ6 MARY Last Admin: 12/07/18 14:00 Dose: 3 ml Famotidine (Pepcid) 20 mg IVP Q12 MARY Last Admin: 12/07/18 10:02 Dose: 20 mg Hydromorphone HCl (Dilaudid) 0.5 mg IVP Q2 PRN PRN Reason: Pain, severe (8-10) Last Admin: 12/07/18 16:23 Dose: 0.5 mg Imipenem/Cilastatin Sodium 500 (mg/ Sodium Chloride) 100 mls @ 100 mls/hr IVPB Q6H MARY; Protocol Last Admin: 12/07/18 11:57 Dose: 100 mls/hr Sodium Chloride (Sodium Chloride 0.9%) 1,000 mls @ 125 mls/hr IV .Q8H MARY Last Admin: 12/07/18 14:00 Dose: 125 mls/hr Lactic Acid (Lac-Hydrin 12% Lotion (225 G)) 0 gm EXT DAILY MARY Last Admin: 12/07/18 14:07 Dose: 1 ml Silver Sulfadiazine (Silvadene 1% 20 Gm) 8 ea TOP BID MARY Last Admin: 12/07/18 10:00 Dose: Not Given Silver Sulfadiazine (Silvadene 1% 20 Gm) 0 ea TOP DAILY MARY Last Admin: 12/07/18 10:00 Dose: 1 ml - Labs Labs: 12/07/18 05:52 12/07/18 05:52 PT 15.5 SECONDS (9.7-12.2) H 12/05/18 09:23 INR 1.4 12/05/18 09:23 APTT 35 SECONDS (21-34) H 12/05/18 09:23 - Head Exam Head Exam: ATRAUMATIC, NORMOCEPHALIC - Eye Exam Eye Exam: Normal appearance - ENT Exam ENT Exam: Mucous Membranes Moist - Neck Exam Neck Exam: Normal Inspection - Respiratory Exam Respiratory Exam: Clear to Ausculation Bilateral - Cardiovascular Exam Cardiovascular Exam: REGULAR RHYTHM Assessment and Plan (1) COPD (chronic obstructive pulmonary disease) Assessment & Plan: Continue nebulizer treatment BiPAP as needed Inhaled steroids Status: Acute (2) Anemia Status: Acute (3) DVT (deep venous thrombosis) Status: Acute (4) Cellulitis Status: Acute (5) Hyponatremia Status: Acute (6) Acute pancreatitis Status: Acute
--- NOTE | 2018-12-07 17:40 | CP.PCM.PN ---
<Marichuy Hinton - Last Filed: 12/07/18 17:38> Subjective - Date & Time of Evaluation Date of Evaluation: 12/07/18 Time of Evaluation: 10:00 - Subjective Subjective: Cardiology Progress Note for Dr. Rea: Patient was seen and examined at bedside. Patient states she does feel better today. She states her pain is being controlled with medication. Patient denies nausea or vomiting. Objective - Vital Signs/Intake and Output Vital Signs (last 24 hours): Temp Pulse Resp BP Pulse Ox 99.0 F 86 16 97/70 L 100 12/07/18 16:00 12/07/18 17:03 12/07/18 17:03 12/07/18 17:03 12/07/18 17:03 Intake and Output: 12/07/18 12/07/18 06:59 18:59 Intake Total 1450 1805 Output Total 250 267 Balance 1200 1538 - Medications Medications: Current Medications Acetaminophen (Tylenol 325 Mg Supp) 325 mg [place] Q4 PRN PRN Reason: Fever >100.4 F Acetaminophen (Tylenol 650 Mg Supp) 650 mg [place] ONCE PRN PRN Reason: pre-transfusion Albuterol/Ipratropium (Duoneb 3 Mg/0.5 Mg (3 Ml) Ud) 3 ml INH RQ6 MARY Last Admin: 12/07/18 14:00 Dose: 3 ml Famotidine (Pepcid) 20 mg IVP Q12 MARY Last Admin: 12/07/18 10:02 Dose: 20 mg Hydromorphone HCl (Dilaudid) 0.5 mg IVP Q2 PRN PRN Reason: Pain, severe (8-10) Last Admin: 12/07/18 16:23 Dose: 0.5 mg Imipenem/Cilastatin Sodium 500 (mg/ Sodium Chloride) 100 mls @ 100 mls/hr IVPB Q6H MARY; Protocol Last Admin: 12/07/18 17:10 Dose: 100 mls/hr Sodium Chloride (Sodium Chloride 0.9%) 1,000 mls @ 125 mls/hr IV .Q8H MARY Last Admin: 12/07/18 14:00 Dose: 125 mls/hr Lactic Acid (Lac-Hydrin 12% Lotion (225 G)) 0 gm EXT DAILY MARY Last Admin: 12/07/18 14:07 Dose: 1 ml Silver Sulfadiazine (Silvadene 1% 20 Gm) 8 ea TOP BID [facility] Last Admin: 12/07/18 17:13 Dose: Not Given Silver Sulfadiazine (Silvadene 1% 20 Gm) 0 ea TOP DAILY [facility] Last Admin: 12/07/18 10:00 Dose: 1 ml - Labs Labs: 12/07/18 05:52 12/07/18 05:52 PT 15.5 SECONDS (9.7-12.2) H 12/05/18 09:23 INR 1.4 12/05/18 09:23 APTT 35 SECONDS (21-34) H 12/05/18 09:23 - Constitutional Appears: No Acute Distress, Cachectic, Chronically Ill - Head Exam Head Exam: ATRAUMATIC, NORMAL INSPECTION - Eye Exam Eye Exam: EOMI, Normal appearance - ENT Exam ENT Exam: Mucous Membranes Moist - Respiratory Exam Respiratory Exam: Clear to Ausculation Bilateral, NORMAL BREATHING PATTERN - Cardiovascular Exam Cardiovascular Exam: REGULAR RHYTHM, +S1, +S2 - GI/Abdominal Exam GI & Abdominal Exam: Soft, Normal Bowel Sounds. absent: Tenderness - Extremities Exam Additional comments: Covered in gauze, Bilateral leg swelling R>L; R +1 edema, L pitting edema - Neurological Exam Neurological Exam: Alert, Awake, Oriented x3 - Psychiatric Exam Psychiatric exam: Normal Affect - Skin Skin Exam: Normal Color Assessment and Plan - Assessment and Plan (Free Text) Assessment: 58 year old with PMHx of COPD, Pancreatitis, Pneumonia, Cholelithiasis, Anxiety and Depression who is currently admitted for bilateral leg edema with draining ulcers. Cardiac consult for Dyspnea; possible PE Shortness of breath Most likely secondary to Emphysema - Chest CT: Hyperinflation/emphysema. No large central or segmental pulmonary embolus identified. Right basilar pleural thickening or atelectasis. Dilated main pulmonary artery consistent with pulmonary arterial hypertension; correlate clinically. Severe Pulmonary HTN - ECHO (12/01/18): Markedly dilated right ventricle with markedly reduced right v entricular systolic function. Dilated right atrium. Moderate pulmonary HTN. The left ventricular function is normal. Normal wall motion. - Severe pulmonary HTN secondary to emphysema No further cardiac intervention at this time. Case discussed with Dr. Álvaro Hinton PGY-2 <Federico Rea - Last Filed: 12/07/18 23:26> Objective - Vital Signs/Intake and Output Vital Signs (last 24 hours): Temp Pulse Resp BP Pulse Ox 98.2 F 93 H 21 126/86 100 12/07/18 20:00 12/07/18 23:01 12/07/18 23:01 12/07/18 23:03 12/07/18 23:01 Intake and Output: 12/07/18 12/08/18 18:59 06:59 Intake Total 1930 500 Output Total 297 112 Balance 1633 388 - Medications Medications: Current Medications Acetaminophen (Tylenol 325 Mg Supp) 325 mg [place] Q4 PRN PRN Reason: Fever >100.4 F Acetaminophen (Tylenol 650 Mg Supp) 650 mg [place] ONCE PRN PRN Reason: pre-transfusion Albuterol/Ipratropium (Duoneb 3 Mg/0.5 Mg (3 Ml) Ud) 3 ml INH RQ6 MARY Last Admin: 12/07/18 19:57 Dose: 3 ml Famotidine (Pepcid) 20 mg IVP Q12 MARY Last Admin: 12/07/18 22:02 Dose: 20 mg Hydromorphone HCl (Dilaudid) 0.5 mg IVP Q2 PRN PRN Reason: Pain, severe (8-10) Last Admin: 12/07/18 22:03 Dose: 0.5 mg Imipenem/Cilastatin Sodium 500 (mg/ Sodium Chloride) 100 mls @ 100 mls/hr IVPB Q6H MARY; Protocol Last Admin: 12/07/18 23:10 Dose: 100 mls/hr Sodium Chloride (Sodium Chloride 0.9%) 1,000 mls @ 125 mls/hr IV .Q8H MARY Last Admin: 12/07/18 23:12 Dose: 125 mls/hr Lactic Acid (Lac-Hydrin 12% Lotion (225 G)) 0 gm EXT DAILY MARY Last Admin: 12/07/18 14:07 Dose: 1 ml Silver Sulfadiazine (Silvadene 1% 20 Gm) 8 ea TOP BID MARY Last Admin: 12/07/18 17:13 Dose: Not Given Silver Sulfadiazine (Silvadene 1% 20 Gm) 0 ea TOP DAILY MARY Last Admin: 12/07/18 10:00 Dose: 1 ml - Labs Labs: 12/07/18 05:52 12/07/18 05:52 PT 15.5 SECONDS (9.7-12.2) H 02/02/19 09:23 INR 1.4 12/05/18 09:23 APTT 35 SECONDS (21-34) H 12/05/18 09:23 Assessment and Plan - Assessment and Plan (Free Text) Assessment: Patient seen and evaluated personally by me. Plan of care d/w the medical reviewer and as documented
--- NOTE | 2018-12-07 18:44 | CP.PCM.PN ---
Subjective - Date & Time of Evaluation Date of Evaluation: 12/07/18 Time of Evaluation: 15:35 - Subjective Subjective: dictated Objective - Vital Signs/Intake and Output Vital Signs (last 24 hours): Temp Pulse Resp BP Pulse Ox 99.0 F 94 H 23 119/84 100 12/07/18 16:00 12/07/18 18:03 12/07/18 18:03 12/07/18 18:03 12/07/18 18:03 Intake and Output: 12/07/18 12/07/18 06:59 18:59 Intake Total 1450 1930 Output Total 250 297 Balance 1200 1633 - Medications Medications: Current Medications Acetaminophen (Tylenol 325 Mg Supp) 325 mg [place] Q4 PRN PRN Reason: Fever >100.4 F Acetaminophen (Tylenol 650 Mg Supp) 650 mg [place] ONCE PRN PRN Reason: pre-transfusion Albuterol/Ipratropium (Duoneb 3 Mg/0.5 Mg (3 Ml) Ud) 3 ml INH RQ6 MARY Last Admin: 12/07/18 14:00 Dose: 3 ml Famotidine (Pepcid) 20 mg IVP Q12 MARY Last Admin: 12/07/18 10:02 Dose: 20 mg Hydromorphone HCl (Dilaudid) 0.5 mg IVP Q2 PRN PRN Reason: Pain, severe (8-10) Last Admin: 12/07/18 18:10 Dose: 0.5 mg Imipenem/Cilastatin Sodium 500 (mg/ Sodium Chloride) 100 mls @ 100 mls/hr IVPB Q6H MARY; Protocol Last Admin: 12/07/18 17:10 Dose: 100 mls/hr Sodium Chloride (Sodium Chloride 0.9%) 1,000 mls @ 125 mls/hr IV .Q8H MARY Last Admin: 12/07/18 14:00 Dose: 125 mls/hr Lactic Acid (Lac-Hydrin 12% Lotion (225 G)) 0 gm EXT DAILY MARY Last Admin: 12/07/18 14:07 Dose: 1 ml Silver Sulfadiazine (Silvadene 1% 20 Gm) 8 ea TOP BID MARY Last Admin: 12/07/18 17:13 Dose: Not Given Silver Sulfadiazine (Silvadene 1% 20 Gm) 0 ea TOP DAILY MARY Last Admin: 12/07/18 10:00 Dose: 1 ml - Labs Labs: 12/07/18 05:52 12/07/18 05:52 PT 15.5 SECONDS (9.7-12.2) H 12/05/18 09:23 INR 1.4 12/05/18 09:23 APTT 35 SECONDS (21-34) H 12/05/18 09:23
--- NOTE | 2018-12-07 19:02 | CP.CCUPN ---
CCU Subjective - Physician Review Subjective (Free Text): PGY-[address] ICU progress note for Dr Natalie Goldberg Patient is seen and examined at bedside. Patient reports no pain, states that she does not experience pain when she gets her pain medication. States her abdominal pain is of chronic nature. Patient states feeling chronic generalized weakness. No other complaints at this time. Critical Care Time Spent (in minutes): 40 CCU Objective - Vital Signs / Intake & Output Vital Signs (Last 4 hours): Vital Signs Temp Pulse Resp BP Pulse Ox 12/07/18 17:03 86 16 97/70 L 100 12/07/18 16:03 98 H 23 111/76 100 12/07/18 16:00 99.0 F 101 H 21 111/76 99 12/07/18 15:03 98 H 18 98/71 L 98 12/07/18 14:03 97 H 12 115/78 84 L Intake and Output (Last 8hrs): Intake & Output 12/07/18 12/07/18 12/07/18 06:59 14:59 22:59 Intake Total 950 1355 450 Output Total 160 192 75 Balance 790 1163 375 Intake: Intake, IV Amount 950 975 350 Left Antecubital 200 Right Forearm 750 975 350 Oral 380 100 Output: Urine 160 192 75 Urethral (Rosen) 160 192 75 - Physical Exam Head: Positive for: Atraumatic, Normocephalic Pupils: Positive for: PERRL Extroacular Muscles: Positive for: EOMI Conjunctiva: Positive for: Normal Mouth: Positive for: Moist Mucous Membranes Neck: Positive for: Normal Range of Motion Respiratory/Chest: Positive for: Good Air Exchange, Wheezes (mild wheeze left upper lobe anterior auscultation ) Cardiovascular: Positive for: Regular Rate and Rhythm, Normal S1, S2 Abdomen: Positive for: Normal Bowel Sounds. Negative for: Tenderness, Distention Upper Extremity: Positive for: Normal Inspection Lower Extremity: Positive for: Edema, Other (bilateral leg covered in dressing c/d/i) Skin: Positive for: Warm, Normal Color Psychiatric: Positive for: Alert, Oriented x 3, Normal Insight, Normal Concentration - Medications Active Medications: Active Medications Generic Name Dose Route Start Last Admin Trade Name Freq PRN Reason Stop Dose Admin Acetaminophen 325 mg 12/04/18 07:50 Tylenol 325 Mg Supp [place] Q4 PRN Fever >100.4 F Acetaminophen 650 mg 12/05/18 09:33 Tylenol 650 Mg Supp [place] ONCE PRN pre-transfusion Albuterol/Ipratropium 3 ml 12/06/18 11:00 12/07/18 14:00 Duoneb 3 Mg/0.5 Mg (3 Ml) Ud INH 3 ml RQ6 MARY Administration Famotidine 20 mg 12/03/18 18:00 12/07/18 10:02 Pepcid IVP 20 mg Q12 MARY Administration Hydromorphone HCl 0.5 mg 12/06/18 19:40 12/07/18 16:23 Dilaudid IVP 0.5 mg Q2 PRN Administration Pain, severe (8-10) Imipenem/Cilastatin Sodium 500 100 mls @ 100 mls/hr 12/05/18 11:00 12/07/18 17:10 mg/ Sodium Chloride IVPB 100 mls/hr Q6H MARY Administration Protocol Sodium Chloride 1,000 mls @ 125 mls/hr 12/06/18 19:27 12/07/18 14:00 Sodium Chloride 0.9% IV 125 mls/hr .Q8H MARY Administration Lactic Acid 0 gm 12/05/18 10:00 12/07/18 14:07 Lac-Hydrin 12% Lotion (225 G) EXT 1 ml DAILY MARY Administration Silver Sulfadiazine 8 ea 12/01/18 12:00 12/07/18 17:13 Silvadene 1% 20 Gm TOP Not Given BID MARY Silver Sulfadiazine 0 ea 12/05/18 10:00 12/07/18 10:00 Silvadene 1% 20 Gm TOP 1 ml DAILY MARY Administration - Patient Studies Lab Studies: Microbiology Studies 12/05/18 09:32 Blood Culture - Preliminary Blood-Venous NO GROWTH AFTER 48 HOURS 12/05/18 09:32 Blood Culture - Preliminary Blood-Venous NO GROWTH AFTER 48 HOURS 12/05/18 12:15 MRSA Culture (Admit) - Final Naris MRSA NOT DETECTED Lab Studies 12/07/18 12/07/18 12/06/18 Range/Units 05:52 05:52 19:09 WBC 8.0 (4.8-10.8) K/uL RBC 3.59 L (3.80-5.20) Mil/uL Hgb 9.9 L (11.0-16.0) g/dL Hct 31.3 L (34.0-47.0) % MCV 87.1 (81.0-99.0) fL MCH 27.5 (27.0-31.0) pg MCHC 31.6 L (33.0-37.0) g/dL RDW 17.8 H (11.5-14.5) % Plt Count 218 (130-400) K/uL MPV 7.2 (7.2-11.7) fL Neut % (Auto) 81.4 H (50.0-75.0) % Lymph % (Auto) 9.0 L (20.0-40.0) % Bibb % (Auto) 7.8 (0.0-10.0) % Eos % (Auto) 1.6 (0.0-4.0) % Baso % (Auto) 0.2 (0.0-2.0) % Neut # (Auto) 6.5 (1.8-7.0) K/uL Lymph # (Auto) 0.7 L (1.0-4.3) K/uL Bibb # (Auto) 0.6 (0.0-0.8) K/uL Eos # (Auto) 0.1 (0.0-0.7) K/uL Baso # (Auto) 0.0 (0.0-0.2) K/uL Neutrophils % (Manual) 78 H (50-75) % Lymphocytes % (Manual) 11 L (20-40) % Monocytes % (Manual) 9 (0-10) % Eosinophils % (Manual) 2 (0-4) % Toxic Granulation Present Platelet Estimate Normal (NORMAL) Large Platelets Present Polychromasia Slight Hypochromasia (manual) Slight Poikilocytosis (manual Slight Anisocytosis (manual) Slight Microcytosis (manual) Slight Macrocytosis (manual) Slight Target Cells Slight Stomatocytes Slight [place] Cells Slight Sodium 135 (132-148) mmol/L Potassium 3.7 (3.6-5.2) mmol/L Chloride 98 (98-107) mmol/L Carbon Dioxide 32 H (22-30) mmol/L Anion Gap 8 L (10-20) BUN 11 (7-17) mg/dL Creatinine 0.4 L (0.7-1.2) mg/dL Est GFR ( Amer) > 60 Est GFR (Non-Af Amer) > 60 POC Glucose (mg/dL) 94 (65-110) mg/dL Random Glucose 72 D (65-105) mg/dL Calcium 7.9 L (8.6-10.4) mg/dl Phosphorus 2.9 (2.5-4.5) mg/dL Magnesium 2.1 (1.6-2.3) mg/dL Total Bilirubin 0.7 (0.2-1.3) mg/dL AST 23 (14-36) U/L ALT 18 (9-52) U/L Alkaline Phosphatase 59 (38-126) U/L Total Protein 5.1 L (6.3-8.3) g/dL Albumin 2.8 L D (3.5-5.0) g/dL Globulin 2.2 (2.2-3.9) gm/dL Albumin/Globulin Ratio 1.3 (1.0-2.1) Amylase 79 (30-110) U/L Lipase 253 (23-300) U/L Laboratory Results - last 24 hr 12/06/18 12/07/18 12/07/18 19:09 05:52 05:52 WBC 8.0 RBC 3.59 L Hgb 9.9 L Hct 31.3 L MCV 87.1 MCH 27.5 MCHC 31.6 L RDW 17.8 H Plt Count 218 MPV 7.2 Neut % (Auto) 81.4 H Lymph % (Auto) 9.0 L Bibb % (Auto) 7.8 Eos % (Auto) 1.6 Baso % (Auto) 0.2 Neut # (Auto) 6.5 Lymph # (Auto) 0.7 L Bibb # (Auto) 0.6 Eos # (Auto) 0.1 Baso # (Auto) 0.0 Neutrophils % (Manual) 78 H Lymphocytes % (Manual) 11 L Monocytes % (Manual) 9 Eosinophils % (Manual) 2 Toxic Granulation Present Platelet Estimate Normal Large Platelets Present Polychromasia Slight Hypochromasia (manual) Slight Poikilocytosis (manual Slight Anisocytosis (manual) Slight Microcytosis (manual) Slight Macrocytosis (manual) Slight Target Cells Slight Stomatocytes Slight [place] Cells Slight Sodium 135 Potassium 3.7 Chloride 98 Carbon Dioxide 32 H Anion Gap 8 L BUN 11 Creatinine 0.4 L Est GFR ( Amer) > 60 Est GFR (Non-Af Amer) > 60 POC Glucose (mg/dL) 94 Random Glucose 72 D Calcium 7.9 L Phosphorus 2.9 Magnesium 2.1 Total Bilirubin 0.7 AST 23 ALT 18 Alkaline Phosphatase 59 Total Protein 5.1 L Albumin 2.8 L D Globulin 2.2 Albumin/Globulin Ratio 1.3 Amylase 79 Lipase 253 Radiology Impressions: Radiology Impressions Chest X-Ray 12/06/18 16:40 IMPRESSION: Borderline medial right basilar infiltrate developing. Critical Care Progress Note - Nutrition Nutrition: Nutrition Category Date Time Status Liquid Diet [DIET] Diets 12/07/18 Breakfast Active Assessment/Plan - Assessment and Plan (Free Text) Plan: 58yo F. PMHx DVT s/p IVC filter, admitted 11/30 for chronic pancreatitis with pancreatic insufficiency, anxiety and depression, presenting with necrotizing pancreatitis converted to hemorrhagic pancreatitis (12/05). Neuro AAOx 3 no acute issues at this time Pulm BIPAP duonebs CV: no acute issues continue monitor Hem: Hemoglobin 9.9 from 9.1 Renal: abdominal pressure monitor monitoring urine output Endo: no acute issues GI: necrotizing hemorrhagic pancreatitis on CT angio of abdomen NPO tylenol and dilaudid for pain pepcid Pancrease ID: Lactic acid 0.8 continue Primaxin f/u blood cultures - no growth after 48 hours, no MRSA, no urine growth Ext LE cellulitis continue podiatry recs - Dr Cuba management as per podiatry PPX DVT proph - SCD's, no VTE due to bleeding GI proph - not currently inidicated Plan discussed with Dr Ashlyn Loja - Date & Time Date: 12/07/18 Time: 11:00
--- NOTE | 2018-12-07 21:24 | PN ---
DATE: 12/07/2018 SUBJECTIVE: The patient is seen here. She is still complaining of pain but seems to be doing much better with Dilaudid 0.5 every 2 hours. The patient was advised not to take it so closely to avoid hypotension side effects. She was asking for anxiolytic at this time and I told her not to take it especially with her fluctuating blood pressure. The patient was having low blood pressure in the last few days. Today, she seems to be amenable, less somatic. She stated that she will take the medication, this is helping her. The Dilaudid seems to work better than the morphine. PHYSICAL EXAMINATION: VITAL SIGNS: Temperature is 97.4, pulse 91, blood pressure 110/76, respirations 14, oxygen saturation is 100%. GENERAL: The patient is still currently in bed 14 in ICU. REVIEW OF SYSTEMS: GENERAL: Alert, oriented x3, calm, seen in his room, not in acute respiratory distress. She was having BiPAP. SKIN: No diaphoresis. HEENT: No headache. No dizziness. NECK: Supple. RESPIRATORY: No dyspnea. CARDIOVASCULAR: No chest pain. GASTROINTESTINAL: No nausea, no vomiting. Still has moderate abdominal pain but tolerable. EXTREMITIES: The patient moves extremities. MUSCULOSKELETAL: Feels weak. NEURO: Alert, oriented x3. GENITOURINARY: No urinary problems. MENTAL STATUS EXAMINATION: Cachectic-looking female who looks stated age, alert and oriented x3. Seen in the ICU, bed 14. Mood is dysphoric. Affect is reactive. Speech spontaneous. Thought process coherent. Thought content, no overt psychosis. No suicidal or homicidal ideation. The patient stated the current pain medication is helping her. Attention and memory seems to be fair. Insight and judgment fair. Impulse control is fair. LABORATORY DATA: Review of her labs, her lipase now is 253 much improved as well as the amylase is 79. IMPRESSION: History of recurrent depression, anxiety, acute pancreatitis and opiate dependence. PLAN AND RECOMMENDATIONS: The patient is seen, meds reviewed. For now, we will keep her off any other psych medications. She will continue with Dilaudid 0.5 intravenous every 2 hours p.r.n. The patient is followed by gastrointestinal. Continue treatment plan as outlined. Grant Adhikari, MD
--- NOTE | 2018-12-07 22:49 | CP.PCM.PN ---
Subjective - Date & Time of Evaluation Date of Evaluation: 12/07/18 Time of Evaluation: 10:00 - Subjective Subjective: dictated Objective - Vital Signs/Intake and Output Vital Signs (last 24 hours): Temp Pulse Resp BP Pulse Ox 98.2 F 89 18 115/78 100 12/07/18 20:00 12/07/18 21:00 12/07/18 21:00 12/07/18 21:03 12/07/18 21:00 Intake and Output: 12/07/18 12/08/18 18:59 06:59 Intake Total 1930 250 Output Total 297 62 Balance 1633 188 - Medications Medications: Current Medications Acetaminophen (Tylenol 325 Mg Supp) 325 mg [place] Q4 PRN PRN Reason: Fever >100.4 F Acetaminophen (Tylenol 650 Mg Supp) 650 mg [place] ONCE PRN PRN Reason: pre-transfusion Albuterol/Ipratropium (Duoneb 3 Mg/0.5 Mg (3 Ml) Ud) 3 ml INH RQ6 MARY Last Admin: 12/07/18 19:57 Dose: 3 ml Famotidine (Pepcid) 20 mg IVP Q12 MARY Last Admin: 12/07/18 22:02 Dose: 20 mg Hydromorphone HCl (Dilaudid) 0.5 mg IVP Q2 PRN PRN Reason: Pain, severe (8-10) Last Admin: 12/07/18 22:03 Dose: 0.5 mg Imipenem/Cilastatin Sodium 500 (mg/ Sodium Chloride) 100 mls @ 100 mls/hr IVPB Q6H MARY; Protocol Last Admin: 12/07/18 17:10 Dose: 100 mls/hr Sodium Chloride (Sodium Chloride 0.9%) 1,000 mls @ 125 mls/hr IV .Q8H MARY Last Admin: 12/07/18 19:10 Dose: Not Given Lactic Acid (Lac-Hydrin 12% Lotion (225 G)) 0 gm EXT DAILY MARY Last Admin: 12/07/18 14:07 Dose: 1 ml Silver Sulfadiazine (Silvadene 1% 20 Gm) 8 ea TOP BID MARY Last Admin: 12/07/18 17:13 Dose: Not Given Silver Sulfadiazine (Silvadene 1% 20 Gm) 0 ea TOP DAILY MARY Last Admin: 12/07/18 10:00 Dose: 1 ml - Labs Labs: 12/07/18 05:52 12/07/18 05:52 PT 15.5 SECONDS (9.7-12.2) H 12/05/18 09:23 INR 1.4 12/05/18 09:23 APTT 35 SECONDS (21-34) H 12/05/18 09:23
--- NOTE | 2018-12-08 00:22 | PN ---
DATE: 12/07/2018 SUBJECTIVE: The patient was seen today. She was very alert. She is still in ICU. She says she still has abdominal pain, mostly upper, and she says it gets worse when people keep pressing on her, but she was feeling a lot better. She said the pain was controlled with the pain medications. PHYSICAL EXAMINATION: VITAL SIGNS: T-max was 99, heart rate of 91, blood pressure 111/76, respirations are 22. HEENT: Head is atraumatic, normocephalic. NECK: Supple. She has pallor present. LUNGS: Clear to auscultation. HEART: S1, S2. Regular. ABDOMEN: Soft. Has abdominal pain and some voluntary guarding, and bowel sounds are present. EXTREMITIES: Have no edema. She does have leg ulcerations on bilateral legs and has new dressing from today; hence, we did not open it and we will follow. LABORATORY DATA: Labs are noted. Labs show white count is 8, hemoglobin 9.9, hematocrit 31.3, platelet count is 218. Neutrophils are 78 and her anion gap is 8, BUN is 11, creatinine 0.4. Lactic acid which was 5.4 on 12/06/2018 has now diminished to 0.8 which was last reported, so she was admitted with hemorrhagic pancreatitis. She also had a pancreas CT done on 12/05/2018 which showed edematous pancreas body and tail with the head remaining enlarged and also potentially edematous and pancreatic necrosis suggested at least of the body and tail once again. Hematoma may be present to the pancreatic head with diffuse ascites remaining extensive. ASSESSMENT AND PLAN: So, she has a hematoma which is present on the pancreatic head, she has pancreatic necrosis and diffuse ascites which is probably [id number]. So, at this time, we will continue with Primaxin for now and we will follow cultures done which were all negative except for wound culture which had Enterococcus and maybe locally present, and she is on meropenem which covers somewhat Enterococcus. We will follow. Ilana Dempsey MD
[2018-12-08] MEDS: HYDROmorphone 0.5 mg/0.5 ml ISec IVP PRN ×12 (02:00→22:34)
--- NOTE | 2018-12-08 02:22 | PN ---
DATE: 12/07/2018 SUBJECTIVE: Kym Conde has been started on clear liquid diet. She is feeling better. She has decreased abdominal pain and decreased bloating. No fever, no chills, no shortness of breath. Status post blood transfusion. Had necrotizing pancreatitis. PHYSICAL EXAMINATION: VITAL SIGNS: Blood pressure 115/78, pulse 89, respiratory rate 18, and temperature 98.2. LUNGS: Decreased air entry. No rales. No rhonchi. CARDIOVASCULAR SYSTEM: PMI in the fifth intercostal space. S1 and S2, regular. No heave. No thrill. ABDOMEN: Distended. Bowel sounds are present and tender. No visceromegaly. ASSESSMENT: 1. Acute necrotizing pancreatitis. The patient is being started on clear liquid diet clinically. She is better. 2. Chronic obstructive pulmonary disease. 3. Anxiety and depression. 4. Anemia due to blood loss in the abdominal cavity. PLAN: Medical management. . Monitor the patient. Connor Baker MD
[2018-12-08] MEDS: Albuterol-Ipratrop 3 mg / 0.5 (3 ml) UD INH SCH ×5 (02:36→20:07)
[2018-12-08] MEDS: Sodium Chloride 0.9% 1,000 ML IV SCH ×4 (06:15→19:53)
--- NOTE | 2018-12-08 07:30 | CP.PCM.PN ---
<Alexey Sorto M - Last Filed: 12/08/18 10:12> Subjective - Date & Time of Evaluation Date of Evaluation: 12/08/18 Time of Evaluation: 08:00 - Subjective Subjective: Surgery progress note for Dr. Gamboa. Patient seen and examined at bedside. No overngiht events reported. Patient tolerating CLD with no nausea, vomiting. Patient has flatulence but no pass of bowel. Patient denies chest pain, fevers, chils, SOB. UOP 24 hr ~650 cc. Objective - Vital Signs/Intake and Output Vital Signs (last 24 hours): Temp Pulse Resp BP Pulse Ox 98 F 86 16 118/81 100 12/08/18 04:00 12/08/18 06:03 12/08/18 06:03 12/08/18 06:03 12/08/18 06:03 Intake and Output: 12/08/18 12/08/18 06:59 18:59 Intake Total 1575 Output Total 322 Balance 1253 - Medications Medications: Current Medications Acetaminophen (Tylenol 325 Mg Supp) 325 mg WA Q4 PRN PRN Reason: Fever >100.4 F Acetaminophen (Tylenol 650 Mg Supp) 650 mg WA ONCE PRN PRN Reason: pre-transfusion Albuterol/Ipratropium (Duoneb 3 Mg/0.5 Mg (3 Ml) Ud) 3 ml INH RQ6 MARY Last Admin: 12/08/18 02:36 Dose: 3 ml Famotidine (Pepcid) 20 mg IVP Q12 MARY Last Admin: 12/07/18 22:02 Dose: 20 mg Hydromorphone HCl (Dilaudid) 0.5 mg IVP Q2 PRN PRN Reason: Pain, severe (8-10) Last Admin: 12/08/18 06:12 Dose: 0.5 mg Imipenem/Cilastatin Sodium 500 (mg/ Sodium Chloride) 100 mls @ 100 mls/hr IVPB Q6H MARY; Protocol Last Admin: 12/08/18 05:36 Dose: 100 mls/hr Sodium Chloride (Sodium Chloride 0.9%) 1,000 mls @ 125 mls/hr IV .Q8H MARY Last Admin: 12/08/18 06:15 Dose: Not Given Lactic Acid (Lac-Hydrin 12% Lotion (225 G)) 0 gm EXT DAILY MARY Last Admin: 12/07/18 14:07 Dose: 1 ml Silver Sulfadiazine (Silvadene 1% 20 Gm) 8 ea TOP BID MARY Last Admin: 12/07/18 17:13 Dose: Not Given Silver Sulfadiazine (Silvadene 1% 20 Gm) 0 ea TOP DAILY MARY Last Admin: 12/07/18 10:00 Dose: 1 ml - Labs Labs: 12/07/18 05:52 12/07/18 05:52 PT 15.5 SECONDS (9.7-12.2) H 12/05/18 09:23 INR 1.4 12/05/18 09:23 APTT 35 SECONDS (21-34) H 12/05/18 09:23 - Constitutional Appears: Non-toxic, No Acute Distress - Eye Exam Eye Exam: Normal appearance - ENT Exam ENT Exam: Mucous Membranes Moist - Respiratory Exam Respiratory Exam: NORMAL BREATHING PATTERN - GI/Abdominal Exam GI & Abdominal Exam: Soft, Tenderness. absent: Rigid Additional comments: Full - Neurological Exam Neurological Exam: Alert, Awake - Psychiatric Exam Psychiatric exam: Normal Affect, Normal Mood Assessment and Plan - Assessment and Plan (Free Text) Assessment: 58 yr old female PMH COPD presenting with necrosis of pancreases Plan: - no further surgical intervention at this point - patient tolerating clears, advance diet as tolerated - d/w Dr. Cooper Sorto, PGY1 <José Manuel Gamboa N - Last Filed: 12/09/18 14:24> Objective - Vital Signs/Intake and Output Vital Signs (last 24 hours): Temp Pulse Resp BP Pulse Ox 98.0 F 101 H 15 125/91 H 94 L 12/09/18 08:00 12/09/18 13:03 12/09/18 13:03 12/09/18 13:03 12/09/18 13:03 Intake and Output: 12/09/18 12/09/18 06:59 18:59 Intake Total 1767.5 1185 Output Total 690 435 Balance 1077.5 750 - Medications Medications: Current Medications Acetaminophen (Tylenol 325 Mg Supp) 325 mg WA Q4 PRN PRN Reason: Fever >100.4 F Acetaminophen (Tylenol 650 Mg Supp) 650 mg WA ONCE PRN PRN Reason: pre-transfusion Albuterol/Ipratropium (Duoneb 3 Mg/0.5 Mg (3 Ml) Ud) 3 ml INH RQ6 MARY Last Admin: 12/09/18 12:49 Dose: 3 ml Docusate Sodium (Colace) 100 mg PO BID MARY Last Admin: 12/09/18 09:01 Dose: 100 mg Famotidine (Pepcid) 20 mg IVP Q12 MARY Last Admin: 12/09/18 09:02 Dose: 20 mg Hydromorphone HCl (Dilaudid) 0.5 mg IVP Q2 PRN PRN Reason: Pain, severe (8-10) Last Admin: 12/09/18 13:06 Dose: 0.5 mg Imipenem/Cilastatin Sodium 500 (mg/ Sodium Chloride) 100 mls @ 100 mls/hr IVPB Q6H [facility]; Protocol Last Admin: 12/09/18 11:03 Dose: 100 mls/hr Potassium Phosphate 30 mmole/ (Sodium Chloride) 510 mls @ 42.5 mls/hr IVPB ONCE ONE Stop: 12/09/18 18:42 Last Admin: 12/09/18 09:02 Dose: 42.5 mls/hr Calcium Gluconate 4.65 meq/ (Sodium Chloride) 110 mls @ 100 mls/hr IV ONCE ONE Stop: 12/09/18 15:35 Lactic Acid (Lac-Hydrin 12% Lotion (225 G)) 0 gm EXT DAILY MARY Last Admin: 12/09/18 09:04 Dose: Not Given Silver Sulfadiazine (Silvadene 1% 20 Gm) 8 ea TOP BID [facility] Last Admin: 12/09/18 09:03 Dose: Not Given Silver Sulfadiazine (Silvadene 1% 20 Gm) 0 ea TOP DAILY [facility] Last Admin: 12/09/18 09:03 Dose: 1 ml - Labs Labs: 12/09/18 06:08 12/09/18 06:07 PT 15.5 SECONDS (9.7-12.2) H 12/05/18 09:23 INR 1.4 12/05/18 09:23 APTT 35 SECONDS (21-34) H 12/05/18 09:23 Assessment and Plan (1) Hemorrhagic pancreatitis Assessment & Plan: Improved, tolerating liquids, notes flatus and BM, Hgb acceptable and stable Status: Acute
[2018-12-08 08:15] LABS: BASO % 0.4 % (0.0-2.0); EOS # 0.1 K/uL (0.0-0.7); EOS % 0.7 % (0.0-4.0); HEMOGLOBIN 10.6 g/dL (11.0-16.0); LYMPH # 0.5 K/uL (1.0-4.3); LYMPH % 5.7 % (20.0-40.0); MEAN CELL VOLUME 87.4 fL (81.0-99.0); MEAN CORPUSCULAR HEMOGLOBIN 28.2 pg (27.0-31.0); MEAN CORPUSCULAR HGB CONC 32.3 g/dL (33.0-37.0); MEAN PLATELET VOLUME 7.3 fL (7.2-11.7); MONO # 0.6 K/uL (0.0-0.8); MONO % 7.5 % (0.0-10.0); NEUT % 85.7 % (50.0-75.0); PLATELET COUNT 258 K/uL (130-400); RBC 3.77 Mil/uL (3.80-5.20); RED CELL DISTRIBUTION WIDTH 17.9 % (11.5-14.5); WHITE BLOOD COUNT 8.1 K/uL (4.8-10.8)
[2018-12-08 08:46] LABS: ALB/GLOB RATIO 1.2 (1.0-2.1); ALBUMIN 2.7 g/dL (3.5-5.0); ALT/SGPT 18 U/L (9-52); AST/SGOT 27 U/L (14-36); BLOOD UREA NITROGEN 9 mg/dL (7-17); CALCIUM 7.8 mg/dl (8.6-10.4); GFR NON-AFRICAN AMERICAN > 60
[2018-12-08] MEDS: LIPASE/PROTEASE/AMYLASE 4,200 U ECC PO SCH ×3 (09:07→17:59)
[2018-12-08] MEDS: Ammonium Lactate 12% Lotion (225 g) EXT SCH (09:07)
[2018-12-08] MEDS: Silver Sulfadiazine 1% Cream (20 gm) TOP SCH ×3 (09:08→18:00)
[2018-12-08 09:35] LABS: ANISOCYTOSIS SLIGHT; EOSINOPHIL 1 % (0-4); HYPOCHROMIC SLIGHT; LYMPHOCYTE 4 % (20-40); MONOCYTE 3 % (0-10); NEUTROPHIL 92 % (50-75); PLATELET ESTIMATE NORMAL (NORMAL); POIKILOCYTOSIS SLIGHT; TOTAL CELLS COUNTED 100
[2018-12-08 09:36] LABS: POLYCHROMIC SLIGHT; TARGET CELLS SLIGHT
--- NOTE | 2018-12-08 11:21 | CP.PCM.PN ---
Subjective - Date & Time of Evaluation Date of Evaluation: 12/08/18 Time of Evaluation: 11:18 - Subjective Subjective: Podiatry Progress Note for Dr. Cuba 58 y/o F patient seen at bedside for bilateral leg wounds. Patient is AAO x 3 and NAD. Patient denies any pain in her LE wounds. Patient states that she has to remove the dressing as it causes her itchy sensation. Denies any further pedal complaints at this time. Patient denies any overnight N/V/F/C/CP/SOB Objective - Vital Signs/Intake and Output Vital Signs (last 24 hours): Temp Pulse Resp BP Pulse Ox 98.5 F 90 12 120/82 100 12/08/18 08:00 12/08/18 11:02 12/08/18 11:02 12/08/18 11:03 12/08/18 11:02 Intake and Output: 12/08/18 12/08/18 06:59 18:59 Intake Total 1575 950 Output Total 322 190 Balance 1253 760 - Medications Medications: Current Medications Acetaminophen (Tylenol 325 Mg Supp) 325 mg NC Q4 PRN PRN Reason: Fever >100.4 F Acetaminophen (Tylenol 650 Mg Supp) 650 mg NC ONCE PRN PRN Reason: pre-transfusion Albuterol/Ipratropium (Duoneb 3 Mg/0.5 Mg (3 Ml) Ud) 3 ml INH RQ6 MARY Last Admin: 12/08/18 07:25 Dose: 3 ml Docusate Sodium (Colace) 100 mg PO BID MARY Last Admin: 12/08/18 09:07 Dose: 100 mg Famotidine (Pepcid) 20 mg IVP Q12 MARY Last Admin: 12/08/18 09:07 Dose: 20 mg Hydromorphone HCl (Dilaudid) 0.5 mg IVP Q2 PRN PRN Reason: Pain, severe (8-10) Last Admin: 12/08/18 10:14 Dose: 0.5 mg Imipenem/Cilastatin Sodium 500 (mg/ Sodium Chloride) 100 mls @ 100 mls/hr IVPB Q6H [facility]; Protocol Last Admin: 12/08/18 10:12 Dose: 100 mls/hr Sodium Chloride (Sodium Chloride 0.9%) 1,000 mls @ 125 mls/hr IV .Q8H MARY Last Admin: 12/08/18 09:07 Dose: 125 mls/hr Lactic Acid (Lac-Hydrin 12% Lotion (225 G)) 0 gm EXT DAILY MARY Last Admin: 12/08/18 09:07 Dose: 1 ml Silver Sulfadiazine (Silvadene 1% 20 Gm) 8 ea TOP BID MARY Last Admin: 12/07/18 17:13 Dose: Not Given Silver Sulfadiazine (Silvadene 1% 20 Gm) 0 ea TOP DAILY MARY Last Admin: 12/08/18 09:08 Dose: 1 ml - Labs Labs: 12/08/18 08:03 12/08/18 08:03 PT 15.5 SECONDS (9.7-12.2) H 12/05/18 09:23 INR 1.4 12/05/18 09:23 APTT 35 SECONDS (21-34) H 12/05/18 09:23 - Constitutional Appears: Non-toxic, No Acute Distress - Head Exam Head Exam: ATRAUMATIC, NORMOCEPHALIC - Extremities Exam Additional comments: LE focused exam: Vasc: DP/PT pulses fully palpable 2/4 b/l. Skin temperature warm to warm from proximal to distal. Cap refill < 3 seconds to all digits b/l. Minimal edema noted to b/l legs. Neuro: Epicritic and protective sensation grossly intact b/l. Derm: Multiple superficial ulcerations noted to b/l legs, covered by dry scab with no erythema present. No drainage, no malodor, no other clinical signs of infection. MSK: No Pain on palpation to b/l legs. No gross deformities noted - Neurological Exam Neurological Exam: Alert, Awake, Oriented x3 - Psychiatric Exam Psychiatric exam: Normal Affect, Normal Mood Assessment and Plan - Assessment and Plan (Free Text) Assessment: 58 y/o F patient seen at bedside for bilateral leg wounds Plan: Patient seen and evaluated at the bedside. Plan discussed with Dr. Cuba Charts, labs and vitals reviewed; Afebrile, absent leukocytosis Left leg wound cx: Enterococcous Faecalis B/l legs - Applied SSD, No dressing C/W ammonium lactate 12% BID for dryness No plan for surgical intervention at this time Podiatry will continue to follow up the patient while in house
[2018-12-08] MEDS ORDERED: Potassium Phosphate 15 MMOLE in Sodium Chloride 0.9% 250 ML IVPB ONE (13:00)
--- NOTE | 2018-12-08 16:03 | CP.CCUPN ---
<Romie Lucero S - Last Filed: 12/08/18 17:47> CCU Subjective - Physician Review Critical Care Time Spent (in minutes): 40 CCU Objective - Vital Signs / Intake & Output Vital Signs (Last 4 hours): Vital Signs Temp Pulse Resp BP Pulse Ox 12/08/18 17:03 86 14 112/71 100 12/08/18 17:00 85 16 100 12/08/18 16:03 85 14 110/77 100 12/08/18 16:00 98.6 F 84 11 L 100 12/08/18 15:03 84 11 L 104/77 100 12/08/18 15:00 82 10 L 100 12/08/18 14:03 93 H 13 114/78 100 12/08/18 14:00 87 13 100 Intake and Output (Last 8hrs): Intake & Output 12/08/18 12/08/18 12/08/18 06:59 14:59 22:59 Intake Total 1075 1466 538 Output Total 210 310 110 Balance 865 1156 428 Weight 129 lb 1.6 oz 129 lb 1.6 oz Intake: Intake, IV Amount 1075 996 438 Left Antecubital 0 0 Right Forearm 1075 996 438 Oral 470 100 Output: Urine 210 310 110 Urethral (Rosen) 210 310 110 Other: # Bowel Movements 0 0 0 - Medications Active Medications: Active Medications Generic Name Dose Route Start Last Admin Trade Name Freq PRN Reason Stop Dose Admin Acetaminophen 325 mg 12/04/18 07:50 Tylenol 325 Mg Supp IA Q4 PRN Fever >100.4 F Acetaminophen 650 mg 12/05/18 09:33 Tylenol 650 Mg Supp IA ONCE PRN pre-transfusion Albuterol/Ipratropium 3 ml 12/06/18 11:00 12/08/18 14:32 Duoneb 3 Mg/0.5 Mg (3 Ml) Ud INH 3 ml RQ6 MARY Administration Docusate Sodium 100 mg 12/08/18 10:00 12/08/18 09:07 Colace PO 100 mg BID MARY Administration Famotidine 20 mg 12/03/18 18:00 12/08/18 09:07 Pepcid IVP 20 mg Q12 MARY Administration Hydromorphone HCl 0.5 mg 12/06/18 19:40 12/08/18 16:24 Dilaudid IVP 0.5 mg Q2 PRN Administration Pain, severe (8-10) Imipenem/Cilastatin Sodium 500 100 mls @ 100 mls/hr 12/05/18 11:00 12/08/18 16:24 mg/ Sodium Chloride IVPB 100 mls/hr Q6H MARY Administration Protocol Sodium Chloride 1,000 mls @ 125 mls/hr 12/06/18 19:27 12/08/18 11:30 Sodium Chloride 0.9% IV Not Given .Q8H MARY Potassium Phosphate 15 mmole/ 255 mls @ 42.5 mls/hr 12/08/18 13:00 12/08/18 13:25 Sodium Chloride IVPB 12/08/18 18:59 42.5 mls/hr ONCE ONE Administration Lactic Acid 0 gm 12/05/18 10:00 12/08/18 09:07 Lac-Hydrin 12% Lotion (225 G) EXT 1 ml DAILY MARY Administration Silver Sulfadiazine 8 ea 12/01/18 12:00 12/08/18 11:29 Silvadene 1% 20 Gm TOP Not Given BID MARY Silver Sulfadiazine 0 ea 12/05/18 10:00 12/08/18 09:08 Silvadene 1% 20 Gm TOP 1 ml DAILY MAYR Administration - Patient Studies Lab Studies: Microbiology Studies 12/05/18 09:32 Blood Culture - Preliminary Blood-Venous NO GROWTH AFTER 3 DAYS 12/05/18 09:32 Blood Culture - Preliminary Blood-Venous NO GROWTH AFTER 3 DAYS Lab Studies 12/08/18 12/08/18 12/08/18 Range/Units 08:03 08:03 06:23 WBC 8.1 (4.8-10.8) K/uL RBC 3.77 L (3.80-5.20) Mil/uL Hgb 10.6 L (11.0-16.0) g/dL Hct 32.9 L (34.0-47.0) % MCV 87.4 (81.0-99.0) fL MCH 28.2 (27.0-31.0) pg MCHC 32.3 L (33.0-37.0) g/dL RDW 17.9 H (11.5-14.5) % Plt Count 258 (130-400) K/uL MPV 7.3 (7.2-11.7) fL Neut % (Auto) 85.7 H (50.0-75.0) % Lymph % (Auto) 5.7 L (20.0-40.0) % [place] % (Auto) 7.5 (0.0-10.0) % Eos % (Auto) 0.7 (0.0-4.0) % Baso % (Auto) 0.4 (0.0-2.0) % Neut # (Auto) 7.0 (1.8-7.0) K/uL Lymph # (Auto) 0.5 L (1.0-4.3) K/uL [place] # (Auto) 0.6 (0.0-0.8) K/uL Eos # (Auto) 0.1 (0.0-0.7) K/uL Baso # (Auto) 0.0 (0.0-0.2) K/uL Neutrophils % (Manual) 92 H (50-75) % Lymphocytes % (Manual) 4 L (20-40) % Monocytes % (Manual) 3 (0-10) % Eosinophils % (Manual) 1 (0-4) % Platelet Estimate Normal (NORMAL) Polychromasia Slight Hypochromasia (manual) Slight Poikilocytosis (manual Slight Anisocytosis (manual) Slight Target Cells Slight Sodium 136 (132-148) mmol/L Potassium 3.6 (3.6-5.2) mmol/L Chloride 100 (98-107) mmol/L Carbon Dioxide 32 H (22-30) mmol/L Anion Gap 8 L (10-20) BUN 9 (7-17) mg/dL Creatinine 0.3 L (0.7-1.2) mg/dL Est GFR ( Amer) > 60 Est GFR (Non-Af Amer) > 60 POC Glucose (mg/dL) 88 (65-110) mg/dL Random Glucose 87 D (65-105) mg/dL Calcium 7.8 L (8.6-10.4) mg/dl Phosphorus 2.2 L (2.5-4.5) mg/dL Magnesium 1.6 (1.6-2.3) mg/dL Total Bilirubin 0.7 (0.2-1.3) mg/dL AST 27 (14-36) U/L ALT 18 (9-52) U/L Alkaline Phosphatase 62 (38-126) U/L Total Protein 4.9 L (6.3-8.3) g/dL Albumin 2.7 L (3.5-5.0) g/dL Globulin 2.2 (2.2-3.9) gm/dL Albumin/Globulin Ratio 1.2 (1.0-2.1) Laboratory Results - last 24 hr 12/08/18 12/08/18 12/08/18 06:23 08:03 08:03 WBC 8.1 RBC 3.77 L Hgb 10.6 L Hct 32.9 L MCV 87.4 MCH 28.2 MCHC 32.3 L RDW 17.9 H Plt Count 258 MPV 7.3 Neut % (Auto) 85.7 H Lymph % (Auto) 5.7 L [place] % (Auto) 7.5 Eos % (Auto) 0.7 Baso % (Auto) 0.4 Neut # (Auto) 7.0 Lymph # (Auto) 0.5 L [place] # (Auto) 0.6 Eos # (Auto) 0.1 Baso # (Auto) 0.0 Neutrophils % (Manual) 92 H Lymphocytes % (Manual) 4 L Monocytes % (Manual) 3 Eosinophils % (Manual) 1 Platelet Estimate Normal Polychromasia Slight Hypochromasia (manual) Slight Poikilocytosis (manual Slight Anisocytosis (manual) Slight Target Cells Slight Sodium 136 Potassium 3.6 Chloride 100 Carbon Dioxide 32 H Anion Gap 8 L BUN 9 Creatinine 0.3 L Est GFR ( Amer) > 60 Est GFR (Non-Af Amer) > 60 POC Glucose (mg/dL) 88 Random Glucose 87 D Calcium 7.8 L Phosphorus 2.2 L Magnesium 1.6 Total Bilirubin 0.7 AST 27 ALT 18 Alkaline Phosphatase 62 Total Protein 4.9 L Albumin 2.7 L Globulin 2.2 Albumin/Globulin Ratio 1.2 Critical Care Progress Note - Nutrition Nutrition: Nutrition Category Date Time Status Liquid Diet [DIET] Diets 12/07/18 Breakfast Active Assessment/Plan (1) Chr obstructive pulmonary disease w/ acute lower respiratory infxn Current Visit: No Status: Acute (2) DVT (deep venous thrombosis) Current Visit: Yes Status: Acute (3) Cellulitis Current Visit: Yes Status: Acute (4) Hyponatremia Current Visit: Yes Status: Acute Attending/Attestation - Attestation I have personally seen and examined this patient.: Yes I have fully participated in the care of the patient.: Yes I have reviewed all pertinent clinical information: Yes Notes (Text): 12/08/18 17:48 Patient seen and examined Condition much improved Denies any abdominal pain Patient is off BiPAP and denies shortness of breath Follow-up CBC Continue nebulizer treatment <Farhan Loja - Last Filed: 12/08/18 19:30> CCU Subjective - Physician Review Subjective (Free Text): PGY-1 ICU progress note for Dr Nic brandt Patient is seen and examined at bedside. no acute changes overnight. Patient is resting in bed, no pain at this time. As per nurse, patient have not had a bowel movement. No other complaints at this time. CCU Objective - Vital Signs / Intake & Output Vital Signs (Last 4 hours): Vital Signs Pulse Resp BP Pulse Ox 12/08/18 15:03 84 11 L 104/77 100 12/08/18 15:00 82 10 L 100 12/08/18 14:03 93 H 13 114/78 100 12/08/18 14:00 87 13 100 12/08/18 13:03 75 11 L 109/90 100 12/08/18 13:00 80 11 L 100 Intake and Output (Last 8hrs): Intake & Output 12/08/18 12/08/18 12/08/18 06:59 14:59 22:59 Intake Total 1075 1466 246 Output Total 210 310 40 Balance 865 1156 206 Weight 129 lb 1.6 oz 129 lb 1.6 oz Intake: Intake, IV Amount 1075 996 146 Left Antecubital 0 0 Right Forearm 1075 996 146 Oral 470 100 Output: Urine 210 310 40 Urethral (Rosen) 210 310 40 Other: # Bowel Movements 0 0 0 - Physical Exam Head: Positive for: Atraumatic, Normocephalic Pupils: Positive for: PERRL Extroacular Muscles: Positive for: EOMI Conjunctiva: Positive for: Normal Mouth: Positive for: Moist Mucous Membranes Neck: Positive for: Normal Range of Motion Respiratory/Chest: Positive for: Good Air Exchange, Wheezes (mild wheeze left upper lobe anterior auscultation ) Cardiovascular: Positive for: Regular Rate and Rhythm, Normal S1, S2 Abdomen: Positive for: Normal Bowel Sounds. Negative for: Tenderness, Distention Upper Extremity: Positive for: Normal Inspection Lower Extremity: Positive for: Edema, Other (bilateral leg covered in dressing c/d/i) Skin: Positive for: Warm, Normal Color Psychiatric: Positive for: Alert, Oriented x 3, Normal Insight, Normal Concentration - Medications Active Medications: Active Medications Generic Name Dose Route Start Last Admin Trade Name Freq PRN Reason Stop Dose Admin Acetaminophen 325 mg 12/04/18 07:50 Tylenol 325 Mg Supp IA Q4 PRN Fever >100.4 F Acetaminophen 650 mg 12/05/18 09:33 Tylenol 650 Mg Supp IA ONCE PRN pre-transfusion Albuterol/Ipratropium 3 ml 12/06/18 11:00 12/08/18 14:32 Duoneb 3 Mg/0.5 Mg (3 Ml) Ud INH 3 ml RQ6 MARY Administration Docusate Sodium 100 mg 12/08/18 10:00 12/08/18 09:07 Colace PO 100 mg BID MARY Administration Famotidine 20 mg 12/03/18 18:00 12/08/18 09:07 Pepcid IVP 20 mg Q12 MARY Administration Hydromorphone HCl 0.5 mg 12/06/18 19:40 12/08/18 14:16 Dilaudid IVP 0.5 mg Q2 PRN Administration Pain, severe (8-10) Imipenem/Cilastatin Sodium 500 100 mls @ 100 mls/hr 12/05/18 11:00 12/08/18 10:12 mg/ Sodium Chloride IVPB 100 mls/hr Q6H MARY Administration Protocol Sodium Chloride 1,000 mls @ 125 mls/hr 12/06/18 19:27 12/08/18 11:30 Sodium Chloride 0.9% IV Not Given .Q8H MARY Potassium Phosphate 15 mmole/ 255 mls @ 42.5 mls/hr 12/08/18 13:00 12/08/18 13:25 Sodium Chloride IVPB 12/08/18 18:59 42.5 mls/hr ONCE ONE Administration Lactic Acid 0 gm 12/05/18 10:00 12/08/18 09:07 Lac-Hydrin 12% Lotion (225 G) EXT 1 ml DAILY MARY Administration Silver Sulfadiazine 8 ea 12/01/18 12:00 12/08/18 11:29 Silvadene 1% 20 Gm TOP Not Given BID MARY Silver Sulfadiazine 0 ea 12/05/18 10:00 12/08/18 09:08 Silvadene 1% 20 Gm TOP 1 ml DAILY MARY Administration - Patient Studies Lab Studies: Microbiology Studies 12/05/18 09:32 Blood Culture - Preliminary Blood-Venous NO GROWTH AFTER 3 DAYS 12/05/18 09:32 Blood Culture - Preliminary Blood-Venous NO GROWTH AFTER 3 DAYS Lab Studies 12/08/18 12/08/18 12/08/18 Range/Units 08:03 08:03 06:23 WBC 8.1 (4.8-10.8) K/uL RBC 3.77 L (3.80-5.20) Mil/uL Hgb 10.6 L (11.0-16.0) g/dL Hct 32.9 L (34.0-47.0) % MCV 87.4 (81.0-99.0) fL MCH 28.2 (27.0-31.0) pg MCHC 32.3 L (33.0-37.0) g/dL RDW 17.9 H (11.5-14.5) % Plt Count 258 (130-400) K/uL MPV 7.3 (7.2-11.7) fL Neut % (Auto) 85.7 H (50.0-75.0) % Lymph % (Auto) 5.7 L (20.0-40.0) % [place] % (Auto) 7.5 (0.0-10.0) % Eos % (Auto) 0.7 (0.0-4.0) % Baso % (Auto) 0.4 (0.0-2.0) % Neut # (Auto) 7.0 (1.8-7.0) K/uL Lymph # (Auto) 0.5 L (1.0-4.3) K/uL [place] # (Auto) 0.6 (0.0-0.8) K/uL Eos # (Auto) 0.1 (0.0-0.7) K/uL Baso # (Auto) 0.0 (0.0-0.2) K/uL Neutrophils % (Manual) 92 H (50-75) % Lymphocytes % (Manual) 4 L (20-40) % Monocytes % (Manual) 3 (0-10) % Eosinophils % (Manual) 1 (0-4) % Platelet Estimate Normal (NORMAL) Polychromasia Slight Hypochromasia (manual) Slight Poikilocytosis (manual Slight Anisocytosis (manual) Slight Target Cells Slight Sodium 136 (132-148) mmol/L Potassium 3.6 (3.6-5.2) mmol/L Chloride 100 (98-107) mmol/L Carbon Dioxide 32 H (22-30) mmol/L Anion Gap 8 L (10-20) BUN 9 (7-17) mg/dL Creatinine 0.3 L (0.7-1.2) mg/dL Est GFR ( Amer) > 60 Est GFR (Non-Af Amer) > 60 POC Glucose (mg/dL) 88 (65-110) mg/dL Random Glucose 87 D (65-105) mg/dL Calcium 7.8 L (8.6-10.4) mg/dl Phosphorus 2.2 L (2.5-4.5) mg/dL Magnesium 1.6 (1.6-2.3) mg/dL Total Bilirubin 0.7 (0.2-1.3) mg/dL AST 27 (14-36) U/L ALT 18 (9-52) U/L Alkaline Phosphatase 62 (38-126) U/L Total Protein 4.9 L (6.3-8.3) g/dL Albumin 2.7 L (3.5-5.0) g/dL Globulin 2.2 (2.2-3.9) gm/dL Albumin/Globulin Ratio 1.2 (1.0-2.1) Laboratory Results - last 24 hr 12/08/18 12/08/18 12/08/18 06:23 08:03 08:03 WBC 8.1 RBC 3.77 L Hgb 10.6 L Hct 32.9 L MCV 87.4 MCH 28.2 MCHC 32.3 L RDW 17.9 H Plt Count 258 MPV 7.3 Neut % (Auto) 85.7 H Lymph % (Auto) 5.7 L [place] % (Auto) 7.5 Eos % (Auto) 0.7 Baso % (Auto) 0.4 Neut # (Auto) 7.0 Lymph # (Auto) 0.5 L [place] # (Auto) 0.6 Eos # (Auto) 0.1 Baso # (Auto) 0.0 Neutrophils % (Manual) 92 H Lymphocytes % (Manual) 4 L Monocytes % (Manual) 3 Eosinophils % (Manual) 1 Platelet Estimate Normal Polychromasia Slight Hypochromasia (manual) Slight Poikilocytosis (manual Slight Anisocytosis (manual) Slight Target Cells Slight Sodium 136 Potassium 3.6 Chloride 100 Carbon Dioxide 32 H Anion Gap 8 L BUN 9 Creatinine 0.3 L Est GFR ( Amer) > 60 Est GFR (Non-Af Amer) > 60 POC Glucose (mg/dL) 88 Random Glucose 87 D Calcium 7.8 L Phosphorus 2.2 L Magnesium 1.6 Total Bilirubin 0.7 AST 27 ALT 18 Alkaline Phosphatase 62 Total Protein 4.9 L Albumin 2.7 L Globulin 2.2 Albumin/Globulin Ratio 1.2 Critical Care Progress Note - Nutrition Nutrition: Nutrition Category Date Time Status Liquid Diet [DIET] Diets 12/07/18 Breakfast Active Assessment/Plan - Assessment and Plan (Free Text) Plan: 58yo F. PMHx DVT s/p IVC filter, admitted 11/30 for chronic pancreatitis with pancreatic insufficiency, anxiety and depression, presenting with necrotizing pancreatitis converted to hemorrhagic pancreatitis (12/05). Neuro AAOx 3 no acute issues at this time Pulm off bipap continue duonebs CV: no acute issues continue monitor Hem: Hemoglobin Renal: abdominal pressure monitor goal less than 20 monitoring urine output Phosphate low - given 1 dose of Kphosp Endo: no acute issues GI: necrotizing hemorrhagic pancreatitis on CT angio of abdomen CLD - advance diet as tolerated tylenol and dilaudid for pain pepcid Pancrease Dr Knight - surgery consult - f/u recs - no further surgical intervention at this time. ID: continue Primaxin f/u blood cultures - no growth after 3 days, no MRSA, no urine growth Ext LE cellulitis continue podiatry recs - Dr [place] management as per podiatry PPX DVT proph - SCD's, no VTE due to bleeding GI proph - not currently inidicated Plan discussed with Dr Nic Loja, PGY-1 - Date & Time Date: 12/08/18 Time: 08:00
--- NOTE | 2018-12-08 21:20 | CP.PCM.PN ---
Subjective - Date & Time of Evaluation Date of Evaluation: 12/08/18 Time of Evaluation: 14:40 - Subjective Subjective: dictated Objective - Vital Signs/Intake and Output Vital Signs (last 24 hours): Temp Pulse Resp BP Pulse Ox 98.6 F 98 H 16 104/73 100 12/08/18 16:00 12/08/18 19:03 12/08/18 19:03 12/08/18 19:03 12/08/18 19:03 Intake and Output: 12/08/18 12/09/18 18:59 06:59 Intake Total 2386.0 167.5 Output Total 510 65 Balance 1876.0 102.5 - Medications Medications: Current Medications Acetaminophen (Tylenol 325 Mg Supp) 325 mg [place] Q4 PRN PRN Reason: Fever >100.4 F Acetaminophen (Tylenol 650 Mg Supp) 650 mg [place] ONCE PRN PRN Reason: pre-transfusion Albuterol/Ipratropium (Duoneb 3 Mg/0.5 Mg (3 Ml) Ud) 3 ml INH RQ6 [facility] Last Admin: 12/08/18 20:07 Dose: Not Given Docusate Sodium (Colace) 100 mg PO BID [facility] Last Admin: 12/08/18 17:59 Dose: 100 mg Famotidine (Pepcid) 20 mg IVP Q12 MARY Last Admin: 12/08/18 09:07 Dose: 20 mg Hydromorphone HCl (Dilaudid) 0.5 mg IVP Q2 PRN PRN Reason: Pain, severe (8-10) Last Admin: 12/08/18 18:25 Dose: 0.5 mg Imipenem/Cilastatin Sodium 500 (mg/ Sodium Chloride) 100 mls @ 100 mls/hr IVPB Q6H [facility]; Protocol Last Admin: 12/08/18 16:24 Dose: 100 mls/hr Sodium Chloride (Sodium Chloride 0.9%) 1,000 mls @ 125 mls/hr IV .Q8H [facility] Last Admin: 12/08/18 19:53 Dose: 125 mls/hr Lactic Acid (Lac-Hydrin 12% Lotion (225 G)) 0 gm EXT DAILY [facility] Last Admin: 12/08/18 09:07 Dose: 1 ml Silver Sulfadiazine (Silvadene 1% 20 Gm) 8 ea TOP BID [facility] Last Admin: 12/08/18 18:00 Dose: Not Given Silver Sulfadiazine (Silvadene 1% 20 Gm) 0 ea TOP DAILY MARY Last Admin: 12/08/18 09:08 Dose: 1 ml - Labs Labs: 12/08/18 08:03 12/08/18 08:03 PT 15.5 SECONDS (9.7-12.2) H 12/05/18 09:23 INR 1.4 12/05/18 09:23 APTT 35 SECONDS (21-34) H 12/05/18 09:23
--- NOTE | 2018-12-08 22:54 | CP.PCM.PN ---
Subjective - Date & Time of Evaluation Date of Evaluation: 12/08/18 Time of Evaluation: 13:05 - Subjective Subjective: Patient was seen and evaluated. No cardiac events noted Objective - Vital Signs/Intake and Output Vital Signs (last 24 hours): Temp Pulse Resp BP Pulse Ox 99.0 F 86 16 97/70 L 100 12/07/18 16:00 12/07/18 17:03 12/07/18 17:03 12/07/18 17:03 12/07/18 17:03 Intake and Output: 12/07/18 12/07/18 06:59 18:59 Intake Total 1450 1805 Output Total 250 267 Balance 1200 1538 - Medications Medications: Current Medications Acetaminophen (Tylenol 325 Mg Supp) 325 mg [place] Q4 PRN PRN Reason: Fever >100.4 F Acetaminophen (Tylenol 650 Mg Supp) 650 mg [place] ONCE PRN PRN Reason: pre-transfusion Albuterol/Ipratropium (Duoneb 3 Mg/0.5 Mg (3 Ml) Ud) 3 ml INH RQ6 MARY Last Admin: 12/07/18 14:00 Dose: 3 ml Famotidine (Pepcid) 20 mg IVP Q12 MARY Last Admin: 12/07/18 10:02 Dose: 20 mg Hydromorphone HCl (Dilaudid) 0.5 mg IVP Q2 PRN PRN Reason: Pain, severe (8-10) Last Admin: 12/07/18 16:23 Dose: 0.5 mg Imipenem/Cilastatin Sodium 500 (mg/ Sodium Chloride) 100 mls @ 100 mls/hr IVPB Q6H MARY; Protocol Last Admin: 12/07/18 17:10 Dose: 100 mls/hr Sodium Chloride (Sodium Chloride 0.9%) 1,000 mls @ 125 mls/hr IV .Q8H MARY Last Admin: 12/07/18 14:00 Dose: 125 mls/hr Lactic Acid (Lac-Hydrin 12% Lotion (225 G)) 0 gm EXT DAILY MARY Last Admin: 12/07/18 14:07 Dose: 1 ml Silver Sulfadiazine (Silvadene 1% 20 Gm) 8 ea TOP BID MARY Last Admin: 12/07/18 17:13 Dose: Not Given Silver Sulfadiazine (Silvadene 1% 20 Gm) 0 ea TOP DAILY MARY Last Admin: 12/07/18 10:00 Dose: 1 ml - Labs Labs: 12/07/18 05:52 12/07/18 05:52 PT 15.5 SECONDS (9.7-12.2) H 12/05/18 09:23 INR 1.4 12/05/18 09:23 APTT 35 SECONDS (21-34) H 12/05/18 09:23 - Constitutional Appears: No Acute Distress, Cachectic, Chronically Ill - Head Exam Head Exam: ATRAUMATIC, NORMAL INSPECTION - Eye Exam Eye Exam: EOMI, Normal appearance - ENT Exam ENT Exam: Mucous Membranes Moist - Respiratory Exam Respiratory Exam: Clear to Ausculation Bilateral, NORMAL BREATHING PATTERN - Cardiovascular Exam Cardiovascular Exam: REGULAR RHYTHM, +S1, +S2 - GI/Abdominal Exam GI & Abdominal Exam: Soft, Normal Bowel Sounds. absent: Tenderness - Extremities Exam Additional comments: Covered in gauze, Bilateral leg swelling R>L; R +1 edema, L pitting edema - Neurological Exam Neurological Exam: Alert, Awake, Oriented x3 - Psychiatric Exam Psychiatric exam: Normal Affect - Skin Skin Exam: Normal Color Assessment and Plan - Assessment and Plan (Free Text) Assessment: 58 year old with PMHx of COPD, Pancreatitis, Pneumonia, Cholelithiasis, Anxiety and Depression who is currently admitted for bilateral leg edema with draining ulcers. Cardiac consult for Dyspnea; possible PE Shortness of breath Most likely secondary to Emphysema - Chest CT: Hyperinflation/emphysema. No large central or segmental pulmonary embolus identified. Right basilar pleural thickening or atelectasis. Dilated main pulmonary artery consistent with pulmonary arterial hypertension; correlate clinically. Severe Pulmonary HTN - ECHO (12/01/18): Markedly dilated right ventricle with markedly reduced right ventricular systolic function. Dilated right atrium. Moderate pulmonary HTN. The left ventricular function is normal. Normal wall motion. - Severe pulmonary HTN secondary to emphysema No further cardiac intervention at this time. Objective - Vital Signs/Intake and Output Vital Signs (last 24 hours): Temp Pulse Resp BP Pulse Ox 98.6 F 98 H 16 104/73 100 12/08/18 16:00 12/08/18 19:03 12/08/18 19:03 12/08/18 19:03 12/08/18 19:03 Intake and Output: 12/08/18 12/09/18 18:59 06:59 Intake Total 2386.0 642.5 Output Total 510 225 Balance 1876.0 417.5 - Medications Medications: Current Medications Acetaminophen (Tylenol 325 Mg Supp) 325 mg [place] Q4 PRN PRN Reason: Fever >100.4 F Acetaminophen (Tylenol 650 Mg Supp) 650 mg [place] ONCE PRN PRN Reason: pre-transfusion Albuterol/Ipratropium (Duoneb 3 Mg/0.5 Mg (3 Ml) Ud) 3 ml INH RQ6 [facility]ARY Last Admin: 12/08/18 20:07 Dose: Not Given Docusate Sodium (Colace) 100 mg PO BID [facility]ARY Last Admin: 12/08/18 17:59 Dose: 100 mg Famotidine (Pepcid) 20 mg IVP Q12 [facility]ARY Last Admin: 12/08/18 09:07 Dose: 20 mg Hydromorphone HCl (Dilaudid) 0.5 mg IVP Q2 PRN PRN Reason: Pain, severe (8-10) Last Admin: 12/08/18 20:31 Dose: 0.5 mg Imipenem/Cilastatin Sodium 500 (mg/ Sodium Chloride) 100 mls @ 100 mls/hr IVPB Q6H [facility]ARY; Protocol Last Admin: 12/08/18 16:24 Dose: 100 mls/hr Sodium Chloride (Sodium Chloride 0.9%) 1,000 mls @ 125 mls/hr IV .Q8H [facility]ARY Last Admin: 12/08/18 19:53 Dose: 125 mls/hr Lactic Acid (Lac-Hydrin 12% Lotion (225 G)) 0 gm EXT DAILY [facility]ARY Last Admin: 12/08/18 09:07 Dose: 1 ml Silver Sulfadiazine (Silvadene 1% 20 Gm) 8 ea TOP BID [facility]ARY Last Admin: 12/08/18 18:00 Dose: Not Given Silver Sulfadiazine (Silvadene 1% 20 Gm) 0 ea TOP DAILY MARY Last Admin: 12/08/18 09:08 Dose: 1 ml - Labs Labs: 12/08/18 08:03 12/08/18 08:03 PT 15.5 SECONDS (9.7-12.2) H 12/05/18 09:23 INR 1.4 12/05/18 09:23 APTT 35 SECONDS (21-34) H 12/05/18 09:23
--- NOTE | 2018-12-08 23:10 | CP.PCM.PN ---
Subjective - Date & Time of Evaluation Date of Evaluation: 12/08/18 Time of Evaluation: 12:20 - Subjective Subjective: dictated Objective - Vital Signs/Intake and Output Vital Signs (last 24 hours): Temp Pulse Resp BP Pulse Ox 98.6 F 98 H 16 104/73 100 12/08/18 16:00 12/08/18 19:03 12/08/18 19:03 12/08/18 19:03 12/08/18 19:03 Intake and Output: 12/08/18 12/09/18 18:59 06:59 Intake Total 2386.0 642.5 Output Total 510 225 Balance 1876.0 417.5 - Medications Medications: Current Medications Acetaminophen (Tylenol 325 Mg Supp) 325 mg [place] Q4 PRN PRN Reason: Fever >100.4 F Acetaminophen (Tylenol 650 Mg Supp) 650 mg [place] ONCE PRN PRN Reason: pre-transfusion Albuterol/Ipratropium (Duoneb 3 Mg/0.5 Mg (3 Ml) Ud) 3 ml INH RQ6 [facility] Last Admin: 12/08/18 20:07 Dose: Not Given Docusate Sodium (Colace) 100 mg PO BID [facility] Last Admin: 12/08/18 17:59 Dose: 100 mg Famotidine (Pepcid) 20 mg IVP Q12 [facility]ARY Last Admin: 12/08/18 22:42 Dose: 20 mg Hydromorphone HCl (Dilaudid) 0.5 mg IVP Q2 PRN PRN Reason: Pain, severe (8-10) Last Admin: 12/08/18 22:34 Dose: 0.5 mg Imipenem/Cilastatin Sodium 500 (mg/ Sodium Chloride) 100 mls @ 100 mls/hr IVPB Q6H [facility]; Protocol Last Admin: 12/08/18 22:43 Dose: 100 mls/hr Sodium Chloride (Sodium Chloride 0.9%) 1,000 mls @ 125 mls/hr IV .Q8H [facility] Last Admin: 12/08/18 19:53 Dose: 125 mls/hr Lactic Acid (Lac-Hydrin 12% Lotion (225 G)) 0 gm EXT DAILY [facility] Last Admin: 12/08/18 09:07 Dose: 1 ml Silver Sulfadiazine (Silvadene 1% 20 Gm) 8 ea TOP BID [facility] Last Admin: 12/08/18 18:00 Dose: Not Given Silver Sulfadiazine (Silvadene 1% 20 Gm) 0 ea TOP DAILY [facility] Last Admin: 12/08/18 09:08 Dose: 1 ml - Labs Labs: 12/08/18 08:03 12/08/18 08:03 PT 15.5 SECONDS (9.7-12.2) H 12/05/18 09:23 INR 1.4 12/05/18 09:23 APTT 35 SECONDS (21-34) H 12/05/18 09:23
[2018-12-09] MEDS: HYDROmorphone 0.5 mg/0.5 ml ISec IVP PRN ×12 (00:35→23:39)
[2018-12-09] MEDS: Albuterol-Ipratrop 3 mg / 0.5 (3 ml) UD INH SCH ×4 (01:14→19:53)
[2018-12-09] MEDS: Sodium Chloride 0.9% 1,000 ML IV SCH ×2 (04:43→11:04)
--- NOTE | 2018-12-09 05:58 | PN ---
DATE: 12/08/2018 INFECTIOUS DISEASE FOLLOWUP SUBJECTIVE: The patient was awake, alert. She says her pain was getting better, and she seems to be in better today. PHYSICAL EXAMINATION: VITAL SIGNS: T-max was 98.6, pulse 84, blood pressure 110/77, respiratory rate was 11. HEENT: Head is atraumatic, normocephalic. She has pallor present. NECK: Supple. LUNGS: Clear. No crackles or rales present. HEART: S1 and S2 are regular. ABDOMEN: Soft. Has upper abdominal pain, but no guarding, no rigidity present. EXTREMITIES: Have mild edema present. Ulcerations are healing. Healing ulcerations on both lower extremities with mild edema. LABORATORY DATA: Labs are noted. Labs show white count is 8.1, hemoglobin 10.6, hematocrit 32.9, platelet count is 258. The patient's BUN is 9 and creatinine 0.3. Blood cultures x2 are negative. Wound cultures have been Enterococcus faecalis, but they are healing at this time. ASSESSMENT AND PLAN: She remains on Primaxin. She came in with abdominal pain, acute hemorrhagic pancreatitis with hematoma. She also has acute deep venous thrombosis. deep venous thrombosis report, I have not seen. The patient was on Eliquis. She is improving clinically. Her hemoglobin and hematocrit are stable at this time. We will continue. She is being started on liquid diet. We will continue present treatment as the white count is 8.1, but the machine differential shows that neutrophils are 85.7. She has acute on chronic pancreatitis and is with pancreatic hematoma. We will follow. Ilana Dempsey MD
[2018-12-09 06:20] LABS: BASO % 0.5 % (0.0-2.0); EOS # 0.2 K/uL (0.0-0.7); EOS % 2.3 % (0.0-4.0); HEMOGLOBIN 9.8 g/dL (11.0-16.0); LYMPH # 0.5 K/uL (1.0-4.3); LYMPH % 6.8 % (20.0-40.0); MEAN CELL VOLUME 88.2 fL (81.0-99.0); MEAN CORPUSCULAR HEMOGLOBIN 28.6 pg (27.0-31.0); MEAN CORPUSCULAR HGB CONC 32.4 g/dL (33.0-37.0); MEAN PLATELET VOLUME 7.8 fL (7.2-11.7); MONO # 0.7 K/uL (0.0-0.8); MONO % 8.8 % (0.0-10.0); NEUT # 6.5 K/uL (1.8-7.0); NEUT % 81.6 % (50.0-75.0); PLATELET COUNT 222 K/uL (130-400); RBC 3.44 Mil/uL (3.80-5.20); RED CELL DISTRIBUTION WIDTH 17.6 % (11.5-14.5); WHITE BLOOD COUNT 7.9 K/uL (4.8-10.8)
[2018-12-09 06:33] LABS: ALBUMIN 1.9 g/dL (3.5-5.0); ALT/SGPT 18 U/L (9-52); AST/SGOT 21 U/L (14-36); BLOOD UREA NITROGEN 5 mg/dL (7-17); GFR NON-AFRICAN AMERICAN > 60
[2018-12-09] MEDS ORDERED: Potassium Phosphate 30 MMOLE in Sodium Chloride 0.9% 500 ML IVPB ONE (06:43)
[2018-12-09] MEDS: Magnesium Sulfate 1 gm in D5W 1 GM/100 ML BAG IVPB SCH ×4 (07:52→10:39)
[2018-12-09] MEDS: LIPASE/PROTEASE/AMYLASE 4,200 U ECC PO SCH ×3 (09:02→17:22)
[2018-12-09] MEDS: Silver Sulfadiazine 1% Cream (20 gm) TOP SCH ×3 (09:03→17:01)
[2018-12-09] MEDS: Ammonium Lactate 12% Lotion (225 g) EXT SCH (09:04)
[2018-12-09 09:14] LABS: ANISOCYTOSIS SLIGHT; EOSINOPHIL 4 % (0-4); LYMPHOCYTE 9 % (20-40); MONOCYTE 4 % (0-10); NEUTROPHIL 83 % (50-75); PLATELET ESTIMATE NORMAL (NORMAL); POIKILOCYTOSIS SLIGHT; TOTAL CELLS COUNTED 100
[2018-12-09 09:15] LABS: HYPOCHROMIC SLIGHT; MICROCYTOSIS SLIGHT
--- NOTE | 2018-12-09 12:34 | CP.PCM.PN ---
Subjective - Date & Time of Evaluation Date of Evaluation: 12/09/18 Time of Evaluation: 12:31 - Subjective Subjective: Podiatry Progress Note for Dr. Cuba 58 y/o F patient seen at bedside for bilateral leg wounds. Patient is AAO x 3 and NAD. Patient denies any pain in her LE wounds. Patient states that she has to remove the dressing as it causes her itchy sensation. Denies any further pedal complaints at this time. Patient denies any overnight N/V/F/C/CP/SOB Objective - Vital Signs/Intake and Output Vital Signs (last 24 hours): Temp Pulse Resp BP Pulse Ox 98.0 F 88 19 124/83 100 12/09/18 08:00 12/09/18 12:03 12/09/18 12:03 12/09/18 12:03 12/09/18 12:03 Intake and Output: 12/09/18 12/09/18 06:59 18:59 Intake Total 1767.5 1018 Output Total 690 245 Balance 1077.5 773 - Medications Medications: Current Medications Acetaminophen (Tylenol 325 Mg Supp) 325 mg IN Q4 PRN PRN Reason: Fever >100.4 F Acetaminophen (Tylenol 650 Mg Supp) 650 mg IN ONCE PRN PRN Reason: pre-transfusion Albuterol/Ipratropium (Duoneb 3 Mg/0.5 Mg (3 Ml) Ud) 3 ml INH RQ6 MARY Last Admin: 12/09/18 07:05 Dose: 3 ml Docusate Sodium (Colace) 100 mg PO BID MARY Last Admin: 12/09/18 09:01 Dose: 100 mg Famotidine (Pepcid) 20 mg IVP Q12 MARY Last Admin: 12/09/18 09:02 Dose: 20 mg Hydromorphone HCl (Dilaudid) 0.5 mg IVP Q2 PRN PRN Reason: Pain, severe (8-10) Last Admin: 12/09/18 11:04 Dose: 0.5 mg Imipenem/Cilastatin Sodium 500 (mg/ Sodium Chloride) 100 mls @ 100 mls/hr IVPB Q6H MARY; Protocol Last Admin: 12/09/18 11:03 Dose: 100 mls/hr Sodium Chloride (Sodium Chloride 0.9%) 1,000 mls @ 125 mls/hr IV .Q8H MARY Last Admin: 12/09/18 11:04 Dose: Not Given Potassium Phosphate 30 mmole/ (Sodium Chloride) 510 mls @ 42.5 mls/hr IVPB ONCE ONE Stop: 12/09/18 18:42 Last Admin: 12/09/18 09:02 Dose: 42.5 mls/hr Lactic Acid (Lac-Hydrin 12% Lotion (225 G)) 0 gm EXT DAILY MARY Last Admin: 12/09/18 09:04 Dose: Not Given Silver Sulfadiazine (Silvadene 1% 20 Gm) 8 ea TOP BID MARY Last Admin: 12/09/18 09:03 Dose: Not Given Silver Sulfadiazine (Silvadene 1% 20 Gm) 0 ea TOP DAILY MARY Last Admin: 12/09/18 09:03 Dose: 1 ml - Labs Labs: 12/09/18 06:08 12/09/18 06:07 PT 15.5 SECONDS (9.7-12.2) H 12/05/18 09:23 INR 1.4 12/05/18 09:23 APTT 35 SECONDS (21-34) H 12/05/18 09:23 - Constitutional Appears: Well, Non-toxic, No Acute Distress - Extremities Exam Additional comments: LE focused exam: Vasc: DP/PT pulses fully palpable 2/4 b/l. Skin temperature warm to warm from proximal to distal. Cap refill < 3 seconds to all digits b/l. Minimal edema noted to b/l legs. Neuro: Epicritic and protective sensation grossly intact b/l. Derm: Multiple superficial ulcerations noted to b/l legs, covered by dry scab with no erythema present. No drainage, no malodor, no other clinical signs of infection. MSK: No Pain on palpation to b/l legs. No gross deformities noted - Neurological Exam Neurological Exam: Alert, Awake, Oriented x3 - Psychiatric Exam Psychiatric exam: Normal Affect, Normal Mood Assessment and Plan - Assessment and Plan (Free Text) Assessment: 58 y/o F patient seen at bedside for bilateral leg wounds Plan: Patient seen and evaluated Plan discussed with Dr. Cuba Charts, labs and vitals reviewed; Afebrile, absent leukocytosis Left leg wound cx: Enterococcous Faecalis B/l legs - Applied SSD, DSD C/W ammonium lactate 12% BID for dryness No plan for surgical intervention at this time Stable from podiatry standpoint Podiatry will continue to follow up the patient while in house
[2018-12-09] MEDS ORDERED: Potassium Chloride 20 mEq ER Tab PO ONE (14:00)
--- NOTE | 2018-12-09 14:16 | PN ---
DATE: 12/09/2018 SUBJECTIVE: The patient is seen. The patient continues to improve clinically. She is in the ICU but is much calmer and says the pain medication is helping her. The patient is not anxious. She is tolerating liquid diet and her pain is bearable. I discussed with patient at the time because of her current problems with her pancreas, I do not recommend her to take any psych medication as patient seems to be doing much better without psych medication. Some psych medications can compound her pancreatitis. The patient seems to be calm. She can have her pain medication, but no anxiolytics or any other psych medications for now, which the patient has agreed. PHYSICAL EXAMINATION: GENERAL: The patient was seen in her room. The patient states that she is on a liquid diet, she is also drinking soda. Much calmer and cooperative, oriented x3. VITAL SIGNS: Temperature is 98, pulse 87, blood pressure 124/87, respirations 16, oxygen saturation 100%. SKIN: No diaphoresis. HEENT: No headache, no dizziness. NECK: Supple. RESPIRATORY: No dyspnea. CARDIOVASCULAR: No chest pain. ABDOMEN: Mild to moderate abdominal pain, bearable as per patient; states the pain medication is helping her. EXTREMITIES: Moving extremities without difficulty. NEUROLOGIC: Alert and oriented x3. GENITOURINARY: No urinary problems. MENTAL STATUS EXAMINATION: Cachectic-looking female who looks stated age, alert and oriented x3. Mood is much calmer. Affect is reactive. Speech spontaneous. Thought process coherent. Thought content, still med-seeking according to the nurse but more redirectable. No behavioral problems. No suicidal or homicidal ideations or psychosis. Attention and memory seems to be fair. Insight and judgment improving. Impulse control is fair. ASSESSMENT: History of recurrent depression, anxiety, pancreatitis and opiate dependence. PLAN AND RECOMMENDATIONS: The patient is seen, medications reviewed. For now, the patient is doing well. I do advise not to give various psych medications to this patient at this time, no anxiolytics, no antidepressants. The patient may continue pain medications as ordered. The patient states that she does not want to go for subacute rehabilitation. She said she has her son who will help her at home for now. The patient may continue her pain medication p.r.n. as ordered, she is doing well and the patient has agreed not take any psych medications at this time especially for anxiety. The patient was taking Klonopin before but I told her that because of her pancreatitis, the patient would do better without any psych medications. Grant Adhikari MD [facility]
--- NOTE | 2018-12-09 17:19 | CP.PCM.PN ---
Subjective - Date & Time of Evaluation Date of Evaluation: 12/09/18 Time of Evaluation: 15:00 - Subjective Subjective: Patient seen and examined Lying comfortably in no distress No more monitoring of intra-abdominal pressure as per surgery H&H stable Continue nebulizer treatment and steroids Transfer to floor Patient refusing CAT scan of the abdomen and knows the risks Objective - Vital Signs/Intake and Output Vital Signs (last 24 hours): Temp Pulse Resp BP Pulse Ox 98.0 F 88 12 119/85 100 12/09/18 08:00 12/09/18 16:03 12/09/18 16:03 12/09/18 16:03 12/09/18 16:03 Intake and Output: 12/09/18 12/09/18 06:59 18:59 Intake Total 1767.5 1893 Output Total 690 435 Balance 1077.5 1458 - Medications Medications: Current Medications Acetaminophen (Tylenol 325 Mg Supp) 325 mg AL Q4 PRN PRN Reason: Fever >100.4 F Acetaminophen (Tylenol 650 Mg Supp) 650 mg AL ONCE PRN PRN Reason: pre-transfusion Albuterol/Ipratropium (Duoneb 3 Mg/0.5 Mg (3 Ml) Ud) 3 ml INH RQ6 MARY Last Admin: 12/09/18 12:49 Dose: 3 ml Docusate Sodium (Colace) 100 mg PO BID MARY Last Admin: 12/09/18 09:01 Dose: 100 mg Famotidine (Pepcid) 20 mg IVP Q12 MARY Last Admin: 12/09/18 09:02 Dose: 20 mg Hydromorphone HCl (Dilaudid) 0.5 mg IVP Q2 PRN PRN Reason: Pain, severe (8-10) Last Admin: 12/09/18 15:13 Dose: 0.5 mg Imipenem/Cilastatin Sodium 500 (mg/ Sodium Chloride) 100 mls @ 100 mls/hr IVPB Q6H MARY; Protocol Last Admin: 12/09/18 11:03 Dose: 100 mls/hr Potassium Phosphate 30 mmole/ (Sodium Chloride) 510 mls @ 42.5 mls/hr IVPB ONCE ONE Stop: 12/09/18 18:42 Last Admin: 12/09/18 09:02 Dose: 42.5 mls/hr Lactic Acid (Lac-Hydrin 12% Lotion (225 G)) 0 gm EXT DAILY MARY Last Admin: 12/09/18 09:04 Dose: Not Given Silver Sulfadiazine (Silvadene 1% 20 Gm) 8 ea TOP BID MARY Last Admin: 12/09/18 17:01 Dose: Not Given Silver Sulfadiazine (Silvadene 1% 20 Gm) 0 ea TOP DAILY MARY Last Admin: 12/09/18 09:03 Dose: 1 ml - Labs Labs: 12/09/18 06:08 12/09/18 06:07 PT 15.5 SECONDS (9.7-12.2) H 12/05/18 09:23 INR 1.4 12/05/18 09:23 APTT 35 SECONDS (21-34) H 12/05/18 09:23 - Head Exam Head Exam: ATRAUMATIC, NORMOCEPHALIC - ENT Exam ENT Exam: Mucous Membranes Moist - Neck Exam Neck Exam: Normal Inspection - Respiratory Exam Respiratory Exam: Clear to Ausculation Bilateral - Cardiovascular Exam Cardiovascular Exam: REGULAR RHYTHM - GI/Abdominal Exam GI & Abdominal Exam: Normal Bowel Sounds Assessment and Plan (1) Chr obstructive pulmonary disease w/ acute lower respiratory infxn Assessment & Plan: Continue nebulizer treatment Potassium supplement and follow-up BMP Patient refusing CAT scan of abdomen BiPAP as needed Transfer to telemetry Status: Acute (2) DVT (deep venous thrombosis) Status: Acute (3) Cellulitis Status: Acute (4) Hyponatremia Status: Acute
[2018-12-09 18:13] LABS: BLOOD UREA NITROGEN 6 mg/dL (7-17); CALCIUM 7.7 mg/dl (8.6-10.4); GFR NON-AFRICAN AMERICAN > 60
--- NOTE | 2018-12-09 22:10 | CP.PCM.PN ---
Subjective - Date & Time of Evaluation Date of Evaluation: 12/09/18 Time of Evaluation: 17:00 - Subjective Subjective: dictated Objective - Vital Signs/Intake and Output Vital Signs (last 24 hours): Temp Pulse Resp BP Pulse Ox 98.5 F 99 H 19 118/81 100 12/09/18 20:00 12/09/18 19:03 12/09/18 19:03 12/09/18 19:03 12/09/18 19:03 Intake and Output: 12/09/18 12/10/18 18:59 06:59 Intake Total 1935 42 Output Total 700 Balance 1235 42 - Medications Medications: Current Medications Acetaminophen (Tylenol 325 Mg Supp) 325 mg RI Q4 PRN PRN Reason: Fever >100.4 F Acetaminophen (Tylenol 650 Mg Supp) 650 mg RI ONCE PRN PRN Reason: pre-transfusion Albuterol/Ipratropium (Duoneb 3 Mg/0.5 Mg (3 Ml) Ud) 3 ml INH RQ6 MARY Last Admin: 12/09/18 19:53 Dose: 3 ml Docusate Sodium (Colace) 100 mg PO BID MARY Last Admin: 12/09/18 17:22 Dose: Not Given Famotidine (Pepcid) 20 mg IVP Q12 MARY Last Admin: 12/09/18 21:36 Dose: 20 mg Hydromorphone HCl (Dilaudid) 0.5 mg IVP Q2 PRN PRN Reason: Pain, severe (8-10) Last Admin: 12/09/18 21:31 Dose: 0.5 mg Imipenem/Cilastatin Sodium 500 (mg/ Sodium Chloride) 100 mls @ 100 mls/hr IVPB Q6H MARY; Protocol Last Admin: 12/09/18 17:22 Dose: 100 mls/hr Lactic Acid (Lac-Hydrin 12% Lotion (225 G)) 0 gm EXT DAILY MARY Last Admin: 12/09/18 09:04 Dose: Not Given Potassium Chloride (K-Dur 20 Meq Er Tab) 20 meq PO DAILY MARY Silver Sulfadiazine (Silvadene 1% 20 Gm) 8 ea TOP BID MARY Last Admin: 12/09/18 17:01 Dose: Not Given Silver Sulfadiazine (Silvadene 1% 20 Gm) 0 ea TOP DAILY MARY Last Admin: 12/09/18 09:03 Dose: 1 ml - Labs Labs: 12/09/18 06:08 12/09/18 17:45 PT 15.5 SECONDS (9.7-12.2) H 12/05/18 09:23 INR 1.4 12/05/18 09:23 APTT 35 SECONDS (21-34) H 12/05/18 09:23
--- NOTE | 2018-12-09 23:41 | PN ---
DATE: 12/09/2018 LOCATION: ICU 14 A. SUBJECTIVE: This 58-year-old female is seen and examined in rounds. Appears to be awake, alert, oriented with less abdominal pain, but lower extremities wounds. No reported active bleeding. No nausea or vomiting this morning. The entire chart is reviewed including, but not limited to the most recent lab and radiology study results, current and the previous medication lists. Most recent lab results showed hemoglobin 9.8, hematocrit 30.3 with normal platelet count. BUN is 6, creatinine 0.3, calcium 7.7 with very low albumin and lot total protein with poor oral intake. PHYSICAL EXAMINATION: GENERAL: A 58-year-old female, awake, alert, oriented. VITAL SIGNS: Afebrile with pulse of 86, respiratory rate of 18 to 20, and blood pressure of 124/82. HEENT: Showed pale, dry oral mucous membrane. Nonicteric sclerae. LUNGS: Few scattered crepitation. Decreased air entry at bases. HEART: Positive S1 and S2. ABDOMEN: Soft with mild generalized tenderness. No mass or organomegaly. No rebound tenderness or guarding. EXTREMITIES: Without significant clubbing, cyanosis or edema. No reported new neurological deficit, sensory or motor. IMPRESSION: 1. Anemia with re-exacerbation of peptic ulcer disease. 2. Abnormal echocardiogram done recently. 3. Re-exacerbation of chronic obstructive pulmonary disease with pneumonia. 4. Reported history of cholelithiasis, depression, severe anxiety syndrome, with chronic lower extremities edema syndrome. 5. Malnutrition with severe hypoalbuminemia and hypoproteinemia. 6. Reported history of deep venous thrombosis. SUGGESTIONS: 1. Correct any underlying electrolyte imbalance. 2. Peripheral hyperalimentation. 3. Guaiac all the stools daily x3. 4. Further recommendation to follow. Yin Patel MD
[2018-12-10] MEDS: Albuterol-Ipratrop 3 mg / 0.5 (3 ml) UD INH SCH ×5 (00:45→20:05)
[2018-12-10] MEDS: HYDROmorphone 0.5 mg/0.5 ml ISec IVP PRN ×11 (01:41→22:04)
[2018-12-10 06:01] LABS: BASO % 0.3 % (0.0-2.0); EOS # 0.1 K/uL (0.0-0.7); EOS % 1.3 % (0.0-4.0); HEMOGLOBIN 10.9 g/dL (11.0-16.0); LYMPH # 0.6 K/uL (1.0-4.3); LYMPH % 6.6 % (20.0-40.0); MEAN CELL VOLUME 87.4 fL (81.0-99.0); MEAN PLATELET VOLUME 8.1 fL (7.2-11.7); MONO # 0.7 K/uL (0.0-0.8); MONO % 7.8 % (0.0-10.0); NEUT # 7.9 K/uL (1.8-7.0); PLATELET COUNT 258 K/uL (130-400); RBC 3.88 Mil/uL (3.80-5.20); RED CELL DISTRIBUTION WIDTH 17.9 % (11.5-14.5); WHITE BLOOD COUNT 9.4 K/uL (4.8-10.8)
[2018-12-10 06:13] LABS: ALBUMIN 2.3 g/dL (3.5-5.0); ALT/SGPT 21 U/L (9-52); AST/SGOT 30 U/L (14-36); BLOOD UREA NITROGEN 5 mg/dL (7-17); GFR NON-AFRICAN AMERICAN > 60
[2018-12-10 08:34] LABS: EOSINOPHIL 1 % (0-4); LYMPHOCYTE 8 % (20-40); MONOCYTE 9 % (0-10); NEUTROPHIL 82 % (50-75); PLATELET ESTIMATE NORMAL (NORMAL); TOTAL CELLS COUNTED 100
[2018-12-10 08:35] LABS: ANISOCYTOSIS SLIGHT
[2018-12-10] MEDS: Potassium Chloride 20 mEq ER Tab PO SCH (09:51)
[2018-12-10] MEDS: Silver Sulfadiazine 1% Cream (20 gm) TOP SCH ×3 (09:51→18:00)
[2018-12-10] MEDS: LIPASE/PROTEASE/AMYLASE 4,200 U ECC PO SCH ×3 (09:51→18:14)
--- NOTE | 2018-12-10 09:55 | PN ---
DATE: 12/10/2018 SUBJECTIVE: The patient is feeling better. She is tolerating full liquid diet. No fever, no chills, or rigors. PHYSICAL EXAMINATION: VITAL SIGNS: Blood pressure is 114/85, pulse 84, respiratory rate 20, and temperature 98.6. LUNGS: Clear. ABDOMEN: Mild tenderness. ASSESSMENT: 1. Necrotizing pancreatitis. 2. Chronic obstructive pulmonary disease. PLAN: Continue intravenous fluids. Proceed diet. Monitor the patient. Connor Baker MD
[2018-12-10] MEDS: Ammonium Lactate 12% Lotion (225 g) EXT SCH (09:57)
--- NOTE | 2018-12-10 11:43 | PN ---
DATE: 12/08/2018 SUBJECTIVE: The patient is feeling better. She has decreased abdominal pain. Decreased nausea and vomiting. She has no bowel movement. No fever. No chills. No rectal bleeding. Her necrotizing pancreatitis is improving. PHYSICAL EXAMINATION: VITAL SIGNS: Blood pressure 120/85, pulse 90, respiratory rate 19, temperature 98. LUNGS: Clear. CARDIOVASCULAR: S1 and S2, regular. ABDOMEN: Minimal tenderness. Bowel sounds are positive. Bowel sounds are present. ASSESSMENT: 1. Necrotizing pancreatitis. 2. Chronic obstructive pulmonary disease. 3. Depression. PLAN: Continue with current supportive care. Monitor the patient. Connor Baker MD
--- NOTE | 2018-12-10 14:19 | CP.PCM.PN ---
Subjective - Date & Time of Evaluation Date of Evaluation: 12/10/18 Time of Evaluation: 14:10 - Subjective Subjective: dictated Objective - Vital Signs/Intake and Output Vital Signs (last 24 hours): Temp Pulse Resp BP Pulse Ox 97.9 F 89 16 110/77 96 12/10/18 04:00 12/10/18 04:00 12/10/18 04:00 12/10/18 04:00 12/10/18 04:00 Intake and Output: 12/10/18 12/10/18 06:59 18:59 Intake Total 542 Output Total 700 Balance -158 - Medications Medications: Current Medications Acetaminophen (Tylenol 325 Mg Supp) 325 mg OR Q4 PRN PRN Reason: Fever >100.4 F Acetaminophen (Tylenol 650 Mg Supp) 650 mg OR ONCE PRN PRN Reason: pre-transfusion Albuterol/Ipratropium (Duoneb 3 Mg/0.5 Mg (3 Ml) Ud) 3 ml INH RQ6 MARY Last Admin: 12/10/18 14:05 Dose: 3 ml Docusate Sodium (Colace) 100 mg PO BID MARY Last Admin: 12/10/18 09:51 Dose: Not Given Famotidine (Pepcid) 20 mg IVP Q12 MARY Last Admin: 12/10/18 09:51 Dose: 20 mg Hydromorphone HCl (Dilaudid) 0.5 mg IVP Q2 PRN PRN Reason: Pain, severe (8-10) Last Admin: 12/10/18 13:50 Dose: 0.5 mg Imipenem/Cilastatin Sodium 500 (mg/ Sodium Chloride) 100 mls @ 100 mls/hr IVPB Q6H MARY; Protocol Last Admin: 12/10/18 11:45 Dose: 100 mls/hr Lactic Acid (Lac-Hydrin 12% Lotion (225 G)) 0 gm EXT DAILY MARY Last Admin: 12/10/18 09:57 Dose: 1 ml Potassium Chloride (K-Dur 20 Meq Er Tab) 20 meq PO DAILY MARY Last Admin: 12/10/18 09:51 Dose: 20 meq Silver Sulfadiazine (Silvadene 1% 20 Gm) 8 ea TOP BID MARY Last Admin: 12/10/18 09:51 Dose: Not Given Silver Sulfadiazine (Silvadene 1% 20 Gm) 0 ea TOP DAILY MARY Last Admin: 12/10/18 09:57 Dose: 1 ml - Labs Labs: 12/10/18 05:49 12/10/18 05:47 PT 15.5 SECONDS (9.7-12.2) H 12/05/18 09:23 INR 1.4 12/05/18 09:23 APTT 35 SECONDS (21-34) H 12/05/18 09:23
--- NOTE | 2018-12-10 14:38 | CP.PCM.PN ---
Subjective - Date & Time of Evaluation Date of Evaluation: 12/10/18 Time of Evaluation: 14:36 - Subjective Subjective: GI Progress Note for Dr. Olson Patient seen in the afternoon resting in bed in no acute distress. Patient still with underlying pain and states she is waiting for the time for the pain medication to come. She endorses unremarkable BM, denies nausea, vomiting, chest pain, SOB. Objective - Vital Signs/Intake and Output Vital Signs (last 24 hours): Temp Pulse Resp BP Pulse Ox 97.9 F 89 16 110/77 96 12/10/18 04:00 12/10/18 04:00 12/10/18 04:00 12/10/18 04:00 12/10/18 04:00 Intake and Output: 12/10/18 12/10/18 06:59 18:59 Intake Total 542 Output Total 700 Balance -158 - Medications Medications: Current Medications Acetaminophen (Tylenol 325 Mg Supp) 325 mg AR Q4 PRN PRN Reason: Fever >100.4 F Acetaminophen (Tylenol 650 Mg Supp) 650 mg AR ONCE PRN PRN Reason: pre-transfusion Albuterol/Ipratropium (Duoneb 3 Mg/0.5 Mg (3 Ml) Ud) 3 ml INH RQ6 MARY Last Admin: 12/10/18 14:05 Dose: 3 ml Docusate Sodium (Colace) 100 mg PO BID MARY Last Admin: 12/10/18 09:51 Dose: Not Given Famotidine (Pepcid) 20 mg IVP Q12 MARY Last Admin: 12/10/18 09:51 Dose: 20 mg Hydromorphone HCl (Dilaudid) 0.5 mg IVP Q2 PRN PRN Reason: Pain, severe (8-10) Last Admin: 12/10/18 13:50 Dose: 0.5 mg Imipenem/Cilastatin Sodium 500 (mg/ Sodium Chloride) 100 mls @ 100 mls/hr IVPB Q6H MARY; Protocol Last Admin: 12/10/18 11:45 Dose: 100 mls/hr Lactic Acid (Lac-Hydrin 12% Lotion (225 G)) 0 gm EXT DAILY MARY Last Admin: 12/10/18 09:57 Dose: 1 ml Potassium Chloride (K-Dur 20 Meq Er Tab) 20 meq PO DAILY MARY Last Admin: 12/10/18 09:51 Dose: 20 meq Silver Sulfadiazine (Silvadene 1% 20 Gm) 8 ea TOP BID MARY Last Admin: 12/10/18 09:51 Dose: Not Given Silver Sulfadiazine (Silvadene 1% 20 Gm) 0 ea TOP DAILY [facility] Last Admin: 12/10/18 09:57 Dose: 1 ml - Labs Labs: 12/10/18 05:49 12/10/18 05:47 PT 15.5 SECONDS (9.7-12.2) H 12/05/18 09:23 INR 1.4 12/05/18 09:23 APTT 35 SECONDS (21-34) H 12/05/18 09:23 - Constitutional Appears: Well, Non-toxic - Head Exam Head Exam: ATRAUMATIC, NORMAL INSPECTION - Eye Exam Eye Exam: Normal appearance - Neck Exam Neck Exam: Normal Inspection - Respiratory Exam Respiratory Exam: NORMAL BREATHING PATTERN - GI/Abdominal Exam GI & Abdominal Exam: Soft, Normal Bowel Sounds - Neurological Exam Neurological Exam: Alert, Awake - Psychiatric Exam Psychiatric exam: Normal Affect, Normal Mood Assessment and Plan - Assessment and Plan (Free Text) Assessment: 58 yo female with PMHx of DVT (admitted 11/30), chronic pancreatitis with pancreatic insufficiency, anxiety and depression, is being consulted due to abdominal pain. 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
[2018-12-10] MEDS: Pantoprazole 40 mg EC Tab PO SCH (15:54)
--- NOTE | 2018-12-10 16:58 | PN ---
DATE: 12/10/2018 SUBJECTIVE: The patient is seen. The patient continues to improve clinically, she is tolerating her diet. The patient is only on pain meds, which she has been asking regularly. According to the nurse, the patient is at times uncooperative and seems to be depressed, but as discussed with the patient, I will not recommend her to take any other psych meds for now except for the pain meds, since it will compound the pancreatitis situation. The patient is taking regular Dilaudid 0.5 IV every 2 hours and if given an anxiolytic drug or antidepressant, she might get more confused and would worsen her situation. The patient is doing well at this time and despite her history of anxiety and depression, she is manageable without it. PHYSICAL EXAMINATION: VITAL SIGNS: Temperature is 97.9, pulse 89, blood pressure 110/77, respirations 16, oxygen sat is 96%. GENERAL: The patient is seen in ICU bed 14, smiling when seen. She is asking for Dilaudid prn which she has been asking regularly, but the patient is doing well. She is tolerating her diet, oriented x3. SKIN: No diaphoresis. HEENT: No headache or dizziness. NECK: Supple. RESPIRATORY: No dyspnea. CARDIOVASCULAR: No chest pain. GASTROINTESTINAL: Abdominal pain, much improved with pain meds. EXTREMITIES: The patient is complaining of difficulty moving her legs. NEUROLOGIC: Alert, oriented x3. GENITOURINARY: No problems. Mental status peck, the patient is doing much better. Pain is much better controlled with current treatment plan. MENTAL STATUS EXAMINATION: Cachectic looking female who looks stated age, alert and oriented, cachectic looking female who looks stated age, oriented x3. Mood is brighter. Affect is reactive. Speech is daze. Thought process coherent. Thought content, no overt psychosis. No suicidal ideation. The patient has agreed not to ask for anymore other psych meds for now. Attention and memory seem to be fair. Insight and judgment fair. Impulse control is fair. IMPRESSION: History of recurrent depression, anxiety as well as opiate dependence, pancreatitis. RECOMMENDATIONS: The patient seen, meds reviewed. For now, we will only keep her only on her pain meds. The patient has agreed not to take any other psych medications for now. The patient is doing well without any psych medications for depression, anxiety at this point. Continue treatment plan as outlined. The patient also states that when she feels better, she does not want to go for subacute rehab. She wants to go home. Grant Adhikari MD [facility]
[2018-12-10 17:03] VITALS: RESP 20
--- NOTE | 2018-12-10 18:00 | CP.PCM.PN ---
Subjective - Date & Time of Evaluation Date of Evaluation: 12/10/18 Time of Evaluation: 09:00 - Subjective Subjective: Patient seen and examined Complaining of slight epigastric discomfort Fair appetite Denies shortness of breath, denies cough, denies fever chills Objective - Vital Signs/Intake and Output Vital Signs (last 24 hours): Temp Pulse Resp BP Pulse Ox 99.0 F 96 H 20 107/76 97 12/10/18 17:00 12/10/18 17:00 12/10/18 17:00 12/10/18 17:00 12/10/18 17:00 Intake and Output: 12/10/18 12/10/18 06:59 18:59 Intake Total 542 Output Total 700 Balance -158 - Medications Medications: Current Medications Acetaminophen (Tylenol 325 Mg Supp) 325 mg CA Q4 PRN PRN Reason: Fever >100.4 F Acetaminophen (Tylenol 650 Mg Supp) 650 mg CA ONCE PRN PRN Reason: pre-transfusion Albuterol/Ipratropium (Duoneb 3 Mg/0.5 Mg (3 Ml) Ud) 3 ml INH RQ6 MARY Last Admin: 12/10/18 14:05 Dose: 3 ml Docusate Sodium (Colace) 100 mg PO BID MARY Last Admin: 12/10/18 09:51 Dose: Not Given Famotidine (Pepcid) 20 mg IVP Q12 MARY Last Admin: 12/10/18 09:51 Dose: 20 mg Hydromorphone HCl (Dilaudid) 0.5 mg IVP Q2 PRN PRN Reason: Pain, severe (8-10) Last Admin: 12/10/18 15:53 Dose: 0.5 mg Imipenem/Cilastatin Sodium 500 (mg/ Sodium Chloride) 100 mls @ 100 mls/hr IVPB Q6H MARY; Protocol Last Admin: 12/10/18 16:20 Dose: 100 mls/hr Lactic Acid (Lac-Hydrin 12% Lotion (225 G)) 0 gm EXT DAILY MARY Last Admin: 12/10/18 09:57 Dose: 1 ml Pantoprazole Sodium (Protonix Ec Tab) 40 mg PO DAILY MARY Last Admin: 12/10/18 15:54 Dose: Not Given Potassium Chloride (K-Dur 20 Meq Er Tab) 20 meq PO DAILY [facility] Last Admin: 12/10/18 09:51 Dose: 20 meq Silver Sulfadiazine (Silvadene 1% 20 Gm) 8 ea TOP BID MARY Last Admin: 12/10/18 09:51 Dose: Not Given Silver Sulfadiazine (Silvadene 1% 20 Gm) 0 ea TOP DAILY MARY Last Admin: 12/10/18 09:57 Dose: 1 ml - Labs Labs: 12/10/18 05:49 12/10/18 05:47 PT 15.5 SECONDS (9.7-12.2) H 12/05/18 09:23 INR 1.4 12/05/18 09:23 APTT 35 SECONDS (21-34) H 12/05/18 09:23 - Head Exam Head Exam: ATRAUMATIC, NORMOCEPHALIC - ENT Exam ENT Exam: Mucous Membranes Moist - Neck Exam Neck Exam: Normal Inspection - Respiratory Exam Respiratory Exam: Clear to Ausculation Bilateral - Cardiovascular Exam Cardiovascular Exam: REGULAR RHYTHM Assessment and Plan (1) COPD (chronic obstructive pulmonary disease) Assessment & Plan: Continue nebulizer treatment Transfer to the floor Follow-up H&H Status: Acute (2) Anemia Status: Acute (3) DVT (deep venous thrombosis) Status: Acute (4) Cellulitis Status: Acute (5) Hyponatremia Status: Acute (6) Acute pancreatitis Status: Acute
--- NOTE | 2018-12-10 20:12 | PN ---
DATE: 12/10/2018 INFECTIOUS DISEASE FOLLOWUP NOTE SUBJECTIVE: The patient is trying to eat. She says the pain is getting better. T-max is 97. She is still in ICU. PHYSICAL EXAMINATION: VITAL SIGNS: T-max is 97.9, pulse 89, blood pressure 110/77, respirations are 16. HEENT: Head is atraumatic, normocephalic. Pallor present. NECK: Supple. LUNGS: Clear. No crackles or rales present. HEART: S1 and S2, regular. ABDOMEN: Some upper abdominal tenderness. No guarding, no rigidity present. EXTREMITIES: Trace edema bilateral, healing wounds are present with dressing. LABORATORY DATA: Labs are noted. Labs show white count is 9.4 today, hemoglobin 10.9, hematocrit 33.9, platelet count is 258. The machine diff shows 84 neutrophils . Chemistry shows her total bilirubin 0.9, AST and ALT are normal. ASSESSMENT AND PLAN: She has been on Primaxin, imipenem actually since 12/05/2018, now five days. We will continue it over the weekend and probably if she remains stable, we will discontinue on Friday. 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 Ilana Dempsey MD
--- NOTE | 2018-12-10 21:42 | CP.PCM.PN ---
Subjective - Date & Time of Evaluation Date of Evaluation: 12/10/18 Time of Evaluation: 11:20 - Subjective Subjective: dictated Objective - Vital Signs/Intake and Output Vital Signs (last 24 hours): Temp Pulse Resp BP Pulse Ox 99.0 F 96 H 20 107/76 97 12/10/18 17:00 12/10/18 17:00 12/10/18 17:00 12/10/18 17:00 12/10/18 17:00 - Medications Medications: Current Medications Acetaminophen (Tylenol 325 Mg Supp) 325 mg [place] Q4 PRN PRN Reason: Fever >100.4 F Acetaminophen (Tylenol 650 Mg Supp) 650 mg MS ONCE PRN PRN Reason: pre-transfusion Albuterol/Ipratropium (Duoneb 3 Mg/0.5 Mg (3 Ml) Ud) 3 ml INH RQ6 [facility] Last Admin: 12/10/18 20:05 Dose: 3 ml Docusate Sodium (Colace) 100 mg PO BID [facility] Last Admin: 12/10/18 18:13 Dose: 100 mg Famotidine (Pepcid) 20 mg IVP Q12 [facility] Last Admin: 12/10/18 21:29 Dose: 20 mg Hydromorphone HCl (Dilaudid) 0.5 mg IVP Q2 PRN PRN Reason: Pain, severe (8-10) Last Admin: 12/10/18 18:11 Dose: 0.5 mg Imipenem/Cilastatin Sodium 500 (mg/ Sodium Chloride) 100 mls @ 100 mls/hr IVPB Q6H [facility]; Protocol Last Admin: 12/10/18 16:20 Dose: 100 mls/hr Lactic Acid (Lac-Hydrin 12% Lotion (225 G)) 0 gm EXT DAILY [facility] Last Admin: 12/10/18 09:57 Dose: 1 ml Pantoprazole Sodium (Protonix Ec Tab) 40 mg PO DAILY [facility] Last Admin: 12/10/18 15:54 Dose: Not Given Potassium Chloride (K-Dur 20 Meq Er Tab) 20 meq PO DAILY [facility] Last Admin: 12/10/18 09:51 Dose: 20 meq Silver Sulfadiazine (Silvadene 1% 20 Gm) 8 ea TOP BID [facility] Last Admin: 12/10/18 09:51 Dose: Not Given Silver Sulfadiazine (Silvadene 1% 20 Gm) 0 ea TOP DAILY [facility] Last Admin: 12/10/18 09:57 Dose: 1 ml - Labs Labs: 12/10/18 05:49 12/10/18 05:47 PT 15.5 SECONDS (9.7-12.2) H 12/05/18 09:23 INR 1.4 12/05/18 09:23 APTT 35 SECONDS (21-34) H 12/05/18 09:23
[2018-12-11] MEDS: HYDROmorphone 0.5 mg/0.5 ml ISec IVP PRN ×12 (00:02→23:07)
--- NOTE | 2018-12-11 01:01 | PN ---
DATE: 12/10/2018 SUBJECTIVE: The patient is for transfer to the floor. The patient is feeling better, hemodynamically stable. H and H is stable. She is not bleeding. No nausea or vomiting. No shortness of breath. No fever, no chills, and no dizziness. PHYSICAL EXAMINATION: VITAL SIGNS: Blood pressure is 107/76, pulse 96, respiratory rate 20, and temperature 99. LUNGS: Decreased air entry. Positive rhonchi. CVS: S1, S2. Regular. ABDOMEN: Soft. ASSESSMENT: 1. Acute necrotizing pancreatitis with hemorrhage. 2. Chronic obstructive pulmonary disease. 3. Dehydration. 4. Pancreatic insufficiency. PLAN: Continue transfer to the floor. Monitor the patient. Physical therapy. Out of bed to chair. Connor Baker MD
[2018-12-11] MEDS: Albuterol-Ipratrop 3 mg / 0.5 (3 ml) UD INH SCH ×5 (02:30→20:09)
--- NOTE | 2018-12-11 05:22 | CP.PCM.PN ---
Subjective - Date & Time of Evaluation Date of Evaluation: 12/10/18 Time of Evaluation: 20:10 - Subjective Subjective: Patient seen and examined Complaining of slight epigastric discomfort No chest pain or dyspnea Objective - Vital Signs/Intake and Output Vital Signs (last 24 hours): Temp Pulse Resp BP Pulse Ox 99.0 F 96 H 20 107/76 97 12/10/18 17:00 12/10/18 17:00 12/10/18 17:00 12/10/18 17:00 12/10/18 17:00 Intake and Output: 12/10/18 12/10/18 06:59 18:59 Intake Total 542 Output Total 700 Balance -158 - Medications Medications: Current Medications Acetaminophen (Tylenol 325 Mg Supp) 325 mg [place] Q4 PRN PRN Reason: Fever >100.4 F Acetaminophen (Tylenol 650 Mg Supp) 650 mg [place] ONCE PRN PRN Reason: pre-transfusion Albuterol/Ipratropium (Duoneb 3 Mg/0.5 Mg (3 Ml) Ud) 3 ml INH RQ6 [facility] Last Admin: 12/10/18 14:05 Dose: 3 ml Docusate Sodium (Colace) 100 mg PO BID [facility] Last Admin: 12/10/18 09:51 Dose: Not Given Famotidine (Pepcid) 20 mg IVP Q12 [facility]ARY Last Admin: 12/10/18 09:51 Dose: 20 mg Hydromorphone HCl (Dilaudid) 0.5 mg IVP Q2 PRN PRN Reason: Pain, severe (8-10) Last Admin: 12/10/18 15:53 Dose: 0.5 mg Imipenem/Cilastatin Sodium 500 (mg/ Sodium Chloride) 100 mls @ 100 mls/hr IVPB Q6H [facility]; Protocol Last Admin: 12/10/18 16:20 Dose: 100 mls/hr Lactic Acid (Lac-Hydrin 12% Lotion (225 G)) 0 gm EXT DAILY [facility] Last Admin: 12/10/18 09:57 Dose: 1 ml Pantoprazole Sodium (Protonix Ec Tab) 40 mg PO DAILY [facility] Last Admin: 12/10/18 15:54 Dose: Not Given Potassium Chloride (K-Dur 20 Meq Er Tab) 20 meq PO DAILY [facility] Last Admin: 12/10/18 09:51 Dose: 20 meq Silver Sulfadiazine (Silvadene 1% 20 Gm) 8 ea TOP BID [facility] Last Admin: 12/10/18 09:51 Dose: Not Given Silver Sulfadiazine (Silvadene 1% 20 Gm) 0 ea TOP DAILY [facility] Last Admin: 12/10/18 09:57 Dose: 1 ml - Labs Labs: 12/10/18 05:49 12/10/18 05:47 PT 15.5 SECONDS (9.7-12.2) H 12/05/18 09:23 INR 1.4 12/05/18 09:23 APTT 35 SECONDS (21-34) H 12/05/18 09:23 - Head Exam Head Exam: ATRAUMATIC, NORMOCEPHALIC - ENT Exam ENT Exam: Mucous Membranes Moist - Neck Exam Neck Exam: Normal Inspection - Respiratory Exam Respiratory Exam: Clear to Ausculation Bilateral - Cardiovascular Exam Cardiovascular Exam: REGULAR RHYTHM Assessment and Plan (1) COPD (chronic obstructive pulmonary disease) Assessment & Plan: Continue nebulizer treatment Transfer to the floor Follow-up H&H Status: Acute (2) Anemia Status: Acute (3) DVT (deep venous thrombosis) Status: Acute (4) Cellulitis Status: Acute (5) Hyponatremia Status: Acute (6) Acute pancreatitis Status: Acute Objective - Vital Signs/Intake and Output Vital Signs (last 24 hours): Temp Pulse Resp BP Pulse Ox 98.1 F 97 H 20 111/78 98 12/10/18 23:30 12/10/18 23:30 12/10/18 23:30 12/10/18 23:30 12/10/18 23:30 - Medications Medications: Current Medications Acetaminophen (Tylenol 325 Mg Supp) 325 mg [place] Q4 PRN PRN Reason: Fever >100.4 F Acetaminophen (Tylenol 650 Mg Supp) 650 mg DE ONCE PRN PRN Reason: pre-transfusion Albuterol/Ipratropium (Duoneb 3 Mg/0.5 Mg (3 Ml) Ud) 3 ml INH RQ6 [facility] Last Admin: 12/11/18 02:36 Dose: 3 ml Docusate Sodium (Colace) 100 mg PO BID [facility] Last Admin: 12/10/18 18:13 Dose: 100 mg Famotidine (Pepcid) 20 mg IVP Q12 [facility] Last Admin: 12/10/18 21:29 Dose: 20 mg Hydromorphone HCl (Dilaudid) 0.5 mg IVP Q2 PRN PRN Reason: Pain, severe (8-10) Last Admin: 12/11/18 04:37 Dose: 0.5 mg Imipenem/Cilastatin Sodium 500 (mg/ Sodium Chloride) 100 mls @ 100 mls/hr IVPB Q6H [facility]; Protocol Last Admin: 12/11/18 04:36 Dose: 100 mls/hr Lactic Acid (Lac-Hydrin 12% Lotion (225 G)) 0 gm EXT DAILY [facility] Last Admin: 12/10/18 09:57 Dose: 1 ml Pantoprazole Sodium (Protonix Ec Tab) 40 mg PO DAILY [facility] Last Admin: 12/10/18 15:54 Dose: Not Given Potassium Chloride (K-Dur 20 Meq Er Tab) 20 meq PO DAILY [facility] Last Admin: 12/10/18 09:51 Dose: 20 meq Silver Sulfadiazine (Silvadene 1% 20 Gm) 8 ea TOP BID [facility] Last Admin: 12/10/18 18:00 Dose: Not Given Silver Sulfadiazine (Silvadene 1% 20 Gm) 0 ea TOP DAILY [facility] Last Admin: 12/10/18 09:57 Dose: 1 ml - Labs Labs: 12/10/18 05:49 12/10/18 05:47 PT 15.5 SECONDS (9.7-12.2) H 12/05/18 09:23 INR 1.4 12/05/18 09:23 APTT 35 SECONDS (21-34) H 12/05/18 09:23
[2018-12-11] MEDS ORDERED: Magnesium Oxide 400 mg Tab UD PO ONE (07:21)
[2018-12-11] MEDS: LIPASE/PROTEASE/AMYLASE 4,200 U ECC PO SCH ×3 (08:45→17:02)
[2018-12-11] MEDS: Pantoprazole 40 mg EC Tab PO SCH (10:02)
[2018-12-11] MEDS: Potassium Chloride 20 mEq ER Tab PO SCH (10:02)
[2018-12-11] MEDS: Ammonium Lactate 12% Lotion (225 g) EXT SCH (10:05)
--- NOTE | 2018-12-11 10:07 | CP.PCM.PN ---
Subjective - Date & Time of Evaluation Date of Evaluation: 12/11/18 Time of Evaluation: 10:04 - Subjective Subjective: GI Progress Note for Dr. Olson Patient seen this morning eating breakfast. Patient c/o food not tasting good and eating fake turkey cochran. Patient still w/ persistent diffuse abdominal pain. Denies nausea and vomiting. Had last BM 2 days ago and was unremarkable. Objective - Vital Signs/Intake and Output Vital Signs (last 24 hours): Temp Pulse Resp BP Pulse Ox 98.2 F 94 H 20 101/69 95 12/11/18 08:00 12/11/18 08:00 12/11/18 08:00 12/11/18 08:00 12/11/18 08:00 Intake and Output: 12/11/18 12/11/18 06:59 18:59 Intake Total 300 Output Total 450 Balance -150 - Medications Medications: Current Medications Acetaminophen (Tylenol 325 Mg Supp) 325 mg [place] Q4 PRN PRN Reason: Fever >100.4 F Acetaminophen (Tylenol 650 Mg Supp) 650 mg [place] ONCE PRN PRN Reason: pre-transfusion Albuterol/Ipratropium (Duoneb 3 Mg/0.5 Mg (3 Ml) Ud) 3 ml INH RQ6 [facility] Last Admin: 12/11/18 07:20 Dose: 3 ml Docusate Sodium (Colace) 100 mg PO BID [facility] Last Admin: 12/11/18 10:02 Dose: 100 mg Hydromorphone HCl (Dilaudid) 0.5 mg IVP Q2 PRN PRN Reason: Pain, severe (8-10) Last Admin: 12/11/18 08:49 Dose: 0.5 mg Imipenem/Cilastatin Sodium 500 (mg/ Sodium Chloride) 100 mls @ 100 mls/hr IVPB Q6H [facility]ARY; Protocol Last Admin: 12/11/18 10:03 Dose: 100 mls/hr Lactic Acid (Lac-Hydrin 12% Lotion (225 G)) 0 gm EXT DAILY [facility] Last Admin: 12/10/18 09:57 Dose: 1 ml Pantoprazole Sodium (Protonix Ec Tab) 40 mg PO DAILY [facility] Last Admin: 12/11/18 10:02 Dose: 40 mg Potassium Chloride (K-Dur 20 Meq Er Tab) 20 meq PO DAILY [facility] Last Admin: 12/11/18 10:02 Dose: 20 meq Silver Sulfadiazine (Silvadene 1% 20 Gm) 8 ea TOP BID [facility] Last Admin: 12/10/18 18:00 Dose: Not Given Silver Sulfadiazine (Silvadene 1% 20 Gm) 0 ea TOP DAILY [facility] Last Admin: 12/10/18 09:57 Dose: 1 ml - Labs Labs: 12/10/18 05:49 12/10/18 05:47 PT 15.5 SECONDS (9.7-12.2) H 12/05/18 09:23 INR 1.4 12/05/18 09:23 APTT 35 SECONDS (21-34) H 12/05/18 09:23 - Constitutional Appears: Well, Non-toxic - Head Exam Head Exam: ATRAUMATIC, NORMAL INSPECTION - Neck Exam Neck Exam: Normal Inspection - Respiratory Exam Respiratory Exam: Clear to Ausculation Bilateral, NORMAL BREATHING PATTERN - Cardiovascular Exam Cardiovascular Exam: REGULAR RHYTHM - GI/Abdominal Exam GI & Abdominal Exam: Tenderness (diffuse tenderness to palpation throughout abdomen), Normal Bowel Sounds - Neurological Exam Neurological Exam: Alert, Awake, Oriented x3 - Psychiatric Exam Psychiatric exam: Normal Affect, Normal Mood - Skin Skin Exam: Dry, Intact, Normal Color, Warm Assessment and Plan - Assessment and Plan (Free Text) Assessment: 58 yo female with PMHx of DVT (admitted 11/30), chronic pancreatitis with pancreatic insufficiency, anxiety and depression, is being consulted due to abdominal pain. 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 We will follow closely and PRN. case discussed w/ Dr. Wesley Scott PGY1
--- NOTE | 2018-12-11 10:43 | CP.PCM.PN ---
Subjective - Date & Time of Evaluation Date of Evaluation: 12/11/18 Time of Evaluation: 10:41 - Subjective Subjective: Continues improvement, transfered out of ICU. Tolerating clear liquid diet. Objective - Vital Signs/Intake and Output Vital Signs (last 24 hours): Temp Pulse Resp BP Pulse Ox 98.2 F 94 H 20 101/69 95 12/11/18 08:00 12/11/18 08:00 12/11/18 08:00 12/11/18 08:00 12/11/18 08:00 Intake and Output: 12/11/18 12/11/18 06:59 18:59 Intake Total 300 Output Total 450 Balance -150 - Medications Medications: Current Medications Acetaminophen (Tylenol 325 Mg Supp) 325 mg [place] Q4 PRN PRN Reason: Fever >100.4 F Acetaminophen (Tylenol 650 Mg Supp) 650 mg [place] ONCE PRN PRN Reason: pre-transfusion Albuterol/Ipratropium (Duoneb 3 Mg/0.5 Mg (3 Ml) Ud) 3 ml INH RQ6 [facility] Last Admin: 12/11/18 07:20 Dose: 3 ml Docusate Sodium (Colace) 100 mg PO BID [facility] Last Admin: 12/11/18 10:08 Dose: Not Given Hydromorphone HCl (Dilaudid) 0.5 mg IVP Q2 PRN PRN Reason: Pain, severe (8-10) Last Admin: 12/11/18 08:49 Dose: 0.5 mg Imipenem/Cilastatin Sodium 500 (mg/ Sodium Chloride) 100 mls @ 100 mls/hr IVPB Q6H [facility]; Protocol Last Admin: 12/11/18 10:03 Dose: 100 mls/hr Lactic Acid (Lac-Hydrin 12% Lotion (225 G)) 0 gm EXT DAILY [facility] Last Admin: 12/11/18 10:05 Dose: 1 ml Pantoprazole Sodium (Protonix Ec Tab) 40 mg PO DAILY [facility] Last Admin: 12/11/18 10:02 Dose: 40 mg Potassium Chloride (K-Dur 20 Meq Er Tab) 20 meq PO DAILY [facility] Last Admin: 12/11/18 10:02 Dose: 20 meq Silver Sulfadiazine (Silvadene 1% 20 Gm) 8 ea TOP BID [facility] Last Admin: 12/10/18 18:00 Dose: Not Given Silver Sulfadiazine (Silvadene 1% 20 Gm) 0 ea TOP DAILY [facility] Last Admin: 12/10/18 09:57 Dose: 1 ml - Labs Labs: 12/10/18 05:49 12/10/18 05:47 PT 15.5 SECONDS (9.7-12.2) H 12/05/18 09:23 INR 1.4 12/05/18 09:23 APTT 35 SECONDS (21-34) H 12/05/18 09:23 - GI/Abdominal Exam GI & Abdominal Exam: Soft, Normal Bowel Sounds - Extremities Exam Extremities Exam: Pedal Edema - Neurological Exam Neurological Exam: Alert, Awake, Oriented x3 Assessment and Plan (1) Hemorrhagic pancreatitis Assessment & Plan: Continued improvement. Hgb, WBC, chemistries acceptable. Continue nutrition as tolerated Status: Acute
--- NOTE | 2018-12-11 10:46 | CP.PCM.PN ---
Subjective - Date & Time of Evaluation Date of Evaluation: 12/11/18 Time of Evaluation: 07:00 - Subjective Subjective: Patient seen and examined. On and off shortness of breath for which she uses BiPAP Slight abdominal discomfort Afebrile Patient is awake and responsive Objective - Vital Signs/Intake and Output Vital Signs (last 24 hours): Temp Pulse Resp BP Pulse Ox 98.2 F 94 H 20 101/69 95 12/11/18 08:00 12/11/18 08:00 12/11/18 08:00 12/11/18 08:00 12/11/18 08:00 Intake and Output: 12/11/18 12/11/18 06:59 18:59 Intake Total 300 Output Total 450 Balance -150 - Medications Medications: Current Medications Acetaminophen (Tylenol 325 Mg Supp) 325 mg MD Q4 PRN PRN Reason: Fever >100.4 F Acetaminophen (Tylenol 650 Mg Supp) 650 mg MD ONCE PRN PRN Reason: pre-transfusion Albuterol/Ipratropium (Duoneb 3 Mg/0.5 Mg (3 Ml) Ud) 3 ml INH RQ6 [facility] Last Admin: 12/11/18 07:20 Dose: 3 ml Docusate Sodium (Colace) 100 mg PO BID [facility] Last Admin: 12/11/18 10:08 Dose: Not Given Hydromorphone HCl (Dilaudid) 0.5 mg IVP Q2 PRN PRN Reason: Pain, severe (8-10) Last Admin: 12/11/18 08:49 Dose: 0.5 mg Imipenem/Cilastatin Sodium 500 (mg/ Sodium Chloride) 100 mls @ 100 mls/hr IVPB Q6H [facility]; Protocol Last Admin: 12/11/18 10:03 Dose: 100 mls/hr Lactic Acid (Lac-Hydrin 12% Lotion (225 G)) 0 gm EXT DAILY [facility] Last Admin: 12/11/18 10:05 Dose: 1 ml Pantoprazole Sodium (Protonix Ec Tab) 40 mg PO DAILY [facility] Last Admin: 12/11/18 10:02 Dose: 40 mg Potassium Chloride (K-Dur 20 Meq Er Tab) 20 meq PO DAILY [facility] Last Admin: 12/11/18 10:02 Dose: 20 meq Silver Sulfadiazine (Silvadene 1% 20 Gm) 8 ea TOP BID [facility] Last Admin: 12/10/18 18:00 Dose: Not Given Silver Sulfadiazine (Silvadene 1% 20 Gm) 0 ea TOP DAILY [facility] Last Admin: 12/10/18 09:57 Dose: 1 ml - Labs Labs: 12/10/18 05:49 12/10/18 05:47 PT 15.5 SECONDS (9.7-12.2) H 12/05/18 09:23 INR 1.4 12/05/18 09:23 APTT 35 SECONDS (21-34) H 12/05/18 09:23 - Head Exam Head Exam: ATRAUMATIC, NORMOCEPHALIC - ENT Exam ENT Exam: Mucous Membranes Moist - Neck Exam Neck Exam: Normal Inspection - Respiratory Exam Respiratory Exam: Decreased Breath Sounds - Cardiovascular Exam Cardiovascular Exam: REGULAR RHYTHM - GI/Abdominal Exam GI & Abdominal Exam: Soft Assessment and Plan (1) COPD (chronic obstructive pulmonary disease) Assessment & Plan: Continue nebulizer treatment BiPAP as needed On antibiotics Anticoagulation on hold Status: Acute (2) Anemia Status: Acute (3) DVT (deep venous thrombosis) Status: Acute (4) Cellulitis Status: Acute (5) Hyponatremia Status: Acute (6) Acute pancreatitis Status: Acute
[2018-12-11 14:14] LABS: BASO # 0.1 K/uL (0.0-0.2); BASO % 0.8 % (0.0-2.0); EOS # 0.2 K/uL (0.0-0.7); EOS % 2.5 % (0.0-4.0); HEMOGLOBIN 11.7 g/dL (11.0-16.0); LYMPH # 0.6 K/uL (1.0-4.3); LYMPH % 6.3 % (20.0-40.0); MEAN CELL VOLUME 87.6 fL (81.0-99.0); MEAN CORPUSCULAR HEMOGLOBIN 28.2 pg (27.0-31.0); MEAN CORPUSCULAR HGB CONC 32.2 g/dL (33.0-37.0); MEAN PLATELET VOLUME 8.3 fL (7.2-11.7); MONO # 0.5 K/uL (0.0-0.8); MONO % 6.2 % (0.0-10.0); NEUT # 7.3 K/uL (1.8-7.0); NEUT % 84.2 % (50.0-75.0); PLATELET COUNT 258 K/uL (130-400); RBC 4.14 Mil/uL (3.80-5.20); RED CELL DISTRIBUTION WIDTH 17.8 % (11.5-14.5); WHITE BLOOD COUNT 8.7 K/uL (4.8-10.8)
[2018-12-11 14:58] LABS: ALBUMIN 2.5 g/dL (3.5-5.0); ALT/SGPT 24 U/L (9-52); AST/SGOT 33 U/L (14-36); BLOOD UREA NITROGEN 5 mg/dL (7-17); CALCIUM 7.6 mg/dl (8.6-10.4); GFR NON-AFRICAN AMERICAN > 60
[2018-12-11 15:38] LABS: EOSINOPHIL 1 % (0-4); LYMPHOCYTE 5 % (20-40); MONOCYTE 6 % (0-10); NEUTROPHIL 88 % (50-75); TOTAL CELLS COUNTED 100
[2018-12-11 15:39] LABS: ANISOCYTOSIS SLIGHT; HYPOCHROMIC SLIGHT; PLATELET ESTIMATE NORMAL (NORMAL); POLYCHROMIC SLIGHT
[2018-12-11] MEDS: Silver Sulfadiazine 1% Cream (20 gm) TOP SCH (18:08)
[2018-12-11] MEDS ORDERED: Potassium Phosphate 15 MMOLE in Sodium Chloride 0.9% 250 ML IVPB ONE (18:24)
--- NOTE | 2018-12-11 18:28 | CP.PCM.PN ---
Subjective - Date & Time of Evaluation Date of Evaluation: 12/11/18 Time of Evaluation: 08:00 - Subjective Subjective: Podiatry Progress Note for Dr. Cuba 58 y/o F patient seen at bedside for bilateral leg wounds. Patient is AAO x 3 and NAD. Patient denies any pain in her LE wounds. Complains she does not like the dressing on because it causes her to feel itchy. Denies any further pedal complaints at this time. Patient denies any overnight N/V/F/C/CP/SOB Objective - Vital Signs/Intake and Output Vital Signs (last 24 hours): Temp Pulse Resp BP Pulse Ox 98.2 F 94 H 20 101/69 95 12/11/18 08:00 12/11/18 08:00 12/11/18 08:00 12/11/18 08:00 12/11/18 08:00 Intake and Output: 12/11/18 12/11/18 06:59 18:59 Intake Total 760 Output Total 1050 Balance -290 - Medications Medications: Current Medications Acetaminophen (Tylenol 325 Mg Supp) 325 mg [place] Q4 PRN PRN Reason: Fever >100.4 F Acetaminophen (Tylenol 650 Mg Supp) 650 mg [place] ONCE PRN PRN Reason: pre-transfusion Albuterol/Ipratropium (Duoneb 3 Mg/0.5 Mg (3 Ml) Ud) 3 ml INH RQ6 [facility]ARY Last Admin: 12/11/18 13:40 Dose: 3 ml Docusate Sodium (Colace) 100 mg PO BID [facility] Last Admin: 12/11/18 17:02 Dose: 100 mg Hydromorphone HCl (Dilaudid) 0.5 mg IVP Q2 PRN PRN Reason: Pain, severe (8-10) Last Admin: 12/11/18 17:02 Dose: 0.5 mg Imipenem/Cilastatin Sodium 500 (mg/ Sodium Chloride) 100 mls @ 100 mls/hr IVPB Q6H [facility]; Protocol Last Admin: 12/11/18 17:02 Dose: 100 mls/hr Potassium Phosphate 15 mmole/ (Sodium Chloride) 255 mls @ 42.5 mls/hr IVPB ONCE ONE Stop: 12/12/18 00:23 Lactic Acid (Lac-Hydrin 12% Lotion (225 G)) 0 gm EXT DAILY [facility] Last Admin: 12/11/18 10:05 Dose: 1 ml Pantoprazole Sodium (Protonix Ec Tab) 40 mg PO DAILY [facility] BEDS AT [facility] Last Admin: 12/11/18 10:02 Dose: 40 mg Potassium Chloride (K-Dur 20 Meq Er Tab) 20 meq PO DAILY [facility] Last Admin: 12/11/18 10:02 Dose: 20 meq Silver Sulfadiazine (Silvadene 1% 20 Gm) 8 ea TOP BID [facility] Last Admin: 12/10/18 18:00 Dose: Not Given Silver Sulfadiazine (Silvadene 1% 20 Gm) 0 ea TOP DAILY [facility] 234 BEDS AT [facility] Last Admin: 12/10/18 09:57 Dose: 1 ml - Labs Labs: 12/11/18 14:06 12/11/18 14:06 PT 15.5 SECONDS (9.7-12.2) H 12/05/18 09:23 INR 1.4 12/05/18 09:23 APTT 35 SECONDS (21-34) H 12/05/18 09:23 - Constitutional Appears: Well, Non-toxic, No Acute Distress - Extremities Exam Additional comments: LE focused exam: Vasc: DP/PT pulses fully palpable 2/4 b/l. Skin temperature warm to warm from proximal to distal. Cap refill < 3 seconds to all digits b/l. Minimal edema noted to b/l legs. Neuro: Epicritic and protective sensation grossly intact b/l. Derm: Multiple superficial ulcerations noted to b/l legs, covered by dry scab with no erythema present. No drainage, no malodor, no other clinical signs of infection. MSK: No Pain on palpation to b/l legs. No gross deformities noted - Neurological Exam Neurological Exam: Alert, Awake, Oriented x3 - Psychiatric Exam Psychiatric exam: Normal Affect, Normal Mood Assessment and Plan - Assessment and Plan (Free Text) Assessment: 58 y/o F patient seen at bedside for bilateral leg wounds Plan: Patient seen and evaluated Plan discussed with Dr. Cuba Charts, labs and vitals reviewed; Afebrile, absent leukocytosis Left leg wound cx: Enterococcous Faecalis B/l legs - Applied SSD, DSD C/W ammonium lactate 12% BID for dryness No plan for surgical intervention at this time Stable from podiatry standpoint Podiatry will continue to follow up the patient while in house
[2018-12-11] MEDS: Magnesium Sulfate 1 gm in D5W 1 GM/100 ML BAG IVPB SCH ×2 (18:37→19:04)
--- NOTE | 2018-12-11 21:35 | CP.PCM.PN ---
Subjective - Date & Time of Evaluation Date of Evaluation: 12/11/18 Time of Evaluation: 20:00 - Subjective Subjective: dictated Objective - Vital Signs/Intake and Output Vital Signs (last 24 hours): Temp Pulse Resp BP Pulse Ox 98.2 F 94 H 20 101/69 95 12/11/18 08:00 12/11/18 08:00 12/11/18 08:00 12/11/18 08:00 12/11/18 08:00 Intake and Output: 12/11/18 12/12/18 18:59 06:59 Intake Total 760 Output Total 1050 Balance -290 - Medications Medications: Current Medications Acetaminophen (Tylenol 325 Mg Supp) 325 mg [place] Q4 PRN PRN Reason: Fever >100.4 F Acetaminophen (Tylenol 650 Mg Supp) 650 mg NE ONCE PRN PRN Reason: pre-transfusion Albuterol/Ipratropium (Duoneb 3 Mg/0.5 Mg (3 Ml) Ud) 3 ml INH RQ6 [facility] Last Admin: 12/11/18 20:09 Dose: 3 ml Docusate Sodium (Colace) 100 mg PO BID [facility] Last Admin: 12/11/18 17:02 Dose: 100 mg Hydromorphone HCl (Dilaudid) 0.5 mg IVP Q2 PRN PRN Reason: Pain, severe (8-10) Last Admin: 12/11/18 21:02 Dose: 0.5 mg Imipenem/Cilastatin Sodium 500 (mg/ Sodium Chloride) 100 mls @ 100 mls/hr IVPB Q6H [facility]; Protocol Last Admin: 12/11/18 17:02 Dose: 100 mls/hr Potassium Phosphate 15 mmole/ (Sodium Chloride) 255 mls @ 42.5 mls/hr IVPB ONCE ONE Stop: 12/12/18 00:23 Last Admin: 12/11/18 20:52 Dose: 42.5 mls/hr Lactic Acid (Lac-Hydrin 12% Lotion (225 G)) 0 gm EXT DAILY [facility] Last Admin: 12/11/18 10:05 Dose: 1 ml Pantoprazole Sodium (Protonix Ec Tab) 40 mg PO DAILY [facility] Last Admin: 12/11/18 10:02 Dose: 40 mg Potassium Chloride (K-Dur 20 Meq Er Tab) 20 meq PO DAILY [facility] Last Admin: 12/11/18 10:02 Dose: 20 meq Silver Sulfadiazine (Silvadene 1% 20 Gm) 8 ea TOP BID [facility] Last Admin: 12/10/18 18:00 Dose: Not Given Silver Sulfadiazine (Silvadene 1% 20 Gm) 0 ea TOP DAILY [facility] Last Admin: 12/10/18 09:57 Dose: 1 ml - Labs Labs: 12/11/18 14:06 12/11/18 14:06 PT 15.5 SECONDS (9.7-12.2) H 12/05/18 09:23 INR 1.4 12/05/18 09:23 APTT 35 SECONDS (21-34) H 12/05/18 09:23
--- NOTE | 2018-12-11 21:53 | PN ---
DATE: 12/11/2018 SUBJECTIVE: The patient is seen. The patient has been transferred to the third floor, the regular floor. She is currently in room 357. The patient is doing well. She is eating regular food, but still asking for pain medication regularly. The patient is on Dilaudid 0.5 mg IV every 2 hours p.r.n. The patient is advised to slowly stretch her pain medication and take every three hours or longer if possible as the patient will be going on soon and to slowly taper off from the IV medication. She states she will try to do it by herself slowly. The patient has been cooperative with staff. No behavioral problems. PHYSICAL EXAMINATION: VITAL SIGNS: Temperature is 98.2, heart rate 94, blood pressure 101/69, respirations 20, oxygen saturation 95%. REVIEW OF SYSTEMS: GENERAL: The patient was seen in room 357, alert, oriented x3, pleasant. She states that she will try to slowly wean herself off of the pain medication. SKIN: No diaphoresis. HEENT: No headache, no dizziness. RESPIRATORY: No dyspnea. CARDIOVASCULAR: No chest pain. GASTROINTESTINAL: The patient is tolerating regular food. No nausea. No vomiting. Pain is improving. EXTREMITIES: Moving extremities. MUSCULOSKELETAL: Weakness, improving. NEUROLOGICAL: Alert and oriented x3. GENITOURINARY: No urinary problems. MENTAL STATUS EXAMINATION: A skinny looking female who looks stated age. Alert and oriented x3. Mood is much calmer. Affect is reactive. Speech spontaneous. Thought process coherent. Thought content, no psychosis, no suicidal ideation. Attention and memory seem to be fair. Insight and judgment are fair. Impulse control is fair. IMPRESSION: Cervicalgia; depression; anxiety; gait dependence; pancreatitis, improving. PLAN AND RECOMMENDATION: The patient is seen, meds reviewed. Continue the patient on pain meds. The patient is advised to slowly wean herself off on the Dilaudid. She states if she will be going home, she states she has some pain medication at home. She states that she was taking Tylenol No. 4 and [place] for pain management. For now, the patient is doing well. The patient still does not need any anxiolytics or antidepressant at this time. Continue treatment plan as outlined. Grant Adhikari MD [facility] # [id number]
[2018-12-12] MEDS: HYDROmorphone 0.5 mg/0.5 ml ISec IVP PRN ×9 (01:26→21:24)
[2018-12-12] MEDS: Albuterol-Ipratrop 3 mg / 0.5 (3 ml) UD INH SCH ×4 (01:31→20:04)
--- NOTE | 2018-12-12 01:57 | PN ---
DATE: 12/11/2018 SUBJECTIVE: The patient is tolerating solid diet. She is afebrile. No shortness of breath. No nausea or vomiting. She has COPD. She is on oxygen. PHYSICAL EXAMINATION: VITAL SIGNS: Blood pressure 101/69, pulse 94, respiratory rate 20, temperature 98.2. LUNGS: Decreased air entry. CARDIOVASCULAR SYSTEM: S1 and S2, regular. No heave. No thrill. ABDOMEN: Soft. Distended. Bowel sounds are normoactive at present. No tenderness. ASSESSMENT: 1. Acute necrotizing pancreatitis with extensive hemorrhaging. 2. Deep venous thrombosis with leg ulcer. 3. Chronic obstructive pulmonary disease. 4. Anxiety and depression. PLAN: Medical management. Physical therapy. Monitor the patient. Connor Baker MD
--- NOTE | 2018-12-12 08:54 | CP.PCM.PN ---
Subjective - Date & Time of Evaluation Date of Evaluation: 12/11/18 Time of Evaluation: 20:40 - Subjective Subjective: Patient seen and examined On and off dysnea on BiPAP Complaining of slight epigastric discomfort No chest pain Physical examination - Head Exam Head Exam: ATRAUMATIC, NORMOCEPHALIC - ENT Exam ENT Exam: Mucous Membranes Moist - Neck Exam Neck Exam: Normal Inspection - Respiratory Exam Respiratory Exam: Clear to Ausculation Bilateral - Cardiovascular Exam Cardiovascular Exam: REGULAR RHYTHM Assessment and Plan (1) COPD (chronic obstructive pulmonary disease) Assessment & Plan: Continue nebulizer treatment Transfer to the floor Follow-up H&H Status: Acute (2) Anemia Status: Acute (3) DVT (deep venous thrombosis) Status: Acute (4) Cellulitis Status: Acute (5) Hyponatremia Status: Acute (6) Acute pancreatitis Status: Acute Objective - Vital Signs/Intake and Output Vital Signs (last 24 hours): Temp Pulse Resp BP Pulse Ox 98.5 F 93 H 20 150/98 H 97 12/12/18 08:45 12/12/18 08:45 12/12/18 08:45 12/12/18 08:45 12/12/18 08:45 - Medications Medications: Current Medications Acetaminophen (Tylenol 325 Mg Supp) 325 mg [place] Q4 PRN PRN Reason: Fever >100.4 F Acetaminophen (Tylenol 650 Mg Supp) 650 mg [place] ONCE PRN PRN Reason: pre-transfusion Albuterol/Ipratropium (Duoneb 3 Mg/0.5 Mg (3 Ml) Ud) 3 ml INH RQ6 [facility] Last Admin: 12/12/18 01:31 Dose: Not Given Docusate Sodium (Colace) 100 mg PO BID [facility] Last Admin: 12/11/18 17:02 Dose: 100 mg Hydromorphone HCl (Dilaudid) 0.5 mg IVP Q2 PRN PRN Reason: Pain, severe (8-10) Last Admin: 12/12/18 05:58 Dose: 0.5 mg Imipenem/Cilastatin Sodium 500 (mg/ Sodium Chloride) 100 mls @ 100 mls/hr IVPB Q6H [facility]; Protocol Last Admin: 12/12/18 05:04 Dose: 100 mls/hr Lactic Acid (Lac-Hydrin 12% Lotion (225 G)) 0 gm EXT DAILY [facility] Last Admin: 12/11/18 10:05 Dose: 1 ml Pantoprazole Sodium (Protonix Ec Tab) 40 mg PO DAILY [facility] Last Admin: 12/11/18 10:02 Dose: 40 mg Potassium Chloride (K-Dur 20 Meq Er Tab) 20 meq PO DAILY [facility] Last Admin: 12/11/18 10:02 Dose: 20 meq Silver Sulfadiazine (Silvadene 1% 20 Gm) 8 ea TOP BID [facility] Last Admin: 12/11/18 18:08 Dose: Not Given Silver Sulfadiazine (Silvadene 1% 20 Gm) 0 ea TOP DAILY [facility] Last Admin: 12/10/18 09:57 Dose: 1 ml - Labs Labs: 12/11/18 14:06 12/11/18 14:06 PT 15.5 SECONDS (9.7-12.2) H 12/05/18 09:23 INR 1.4 12/05/18 09:23 APTT 35 SECONDS (21-34) H 12/05/18 09:23
[2018-12-12] MEDS: Pantoprazole 40 mg EC Tab PO SCH (09:10)
[2018-12-12] MEDS: Potassium Chloride 20 mEq ER Tab PO SCH (09:10)
[2018-12-12] MEDS: LIPASE/PROTEASE/AMYLASE 4,200 U ECC PO SCH ×3 (09:11→17:01)
[2018-12-12] MEDS: Ammonium Lactate 12% Lotion (225 g) EXT SCH (09:12)
[2018-12-12] MEDS: Silver Sulfadiazine 1% Cream (20 gm) TOP SCH ×2 (09:17)
--- NOTE | 2018-12-12 11:53 | CP.PCM.PN ---
Subjective - Date & Time of Evaluation Date of Evaluation: 12/12/18 Time of Evaluation: 10:00 - Subjective Subjective: Patient seen and examined No shortness of breath swelling of right arm noted Wants to sit on the chair Afebrile Objective - Vital Signs/Intake and Output Vital Signs (last 24 hours): Temp Pulse Resp BP Pulse Ox 98.5 F 93 H 20 150/98 H 97 12/12/18 08:45 12/12/18 08:45 12/12/18 08:45 12/12/18 08:45 12/12/18 08:45 Intake and Output: 12/12/18 12/12/18 06:59 18:59 Intake Total 350 Output Total 400 Balance -50 - Medications Medications: Current Medications Acetaminophen (Tylenol 325 Mg Supp) 325 mg [place] Q4 PRN PRN Reason: Fever >100.4 F Acetaminophen (Tylenol 650 Mg Supp) 650 mg [place] ONCE PRN PRN Reason: pre-transfusion Albuterol/Ipratropium (Duoneb 3 Mg/0.5 Mg (3 Ml) Ud) 3 ml INH RQ6 [facility] Last Admin: 12/12/18 07:50 Dose: Not Given Docusate Sodium (Colace) 100 mg PO BID [facility] Last Admin: 12/12/18 09:10 Dose: 100 mg Hydromorphone HCl (Dilaudid) 0.5 mg IVP Q2 PRN PRN Reason: Pain, severe (8-10) Last Admin: 12/12/18 11:38 Dose: 0.5 mg Imipenem/Cilastatin Sodium 500 (mg/ Sodium Chloride) 100 mls @ 100 mls/hr IVPB Q6H [facility]; Protocol Last Admin: 12/12/18 10:32 Dose: 100 mls/hr Lactic Acid (Lac-Hydrin 12% Lotion (225 G)) 0 gm EXT DAILY [facility] Last Admin: 12/12/18 09:12 Dose: 1 applic Pantoprazole Sodium (Protonix Ec Tab) 40 mg PO DAILY [facility] Last Admin: 12/12/18 09:10 Dose: 40 mg Potassium Chloride (K-Dur 20 Meq Er Tab) 20 meq PO DAILY [facility] Last Admin: 12/12/18 09:10 Dose: 20 meq Silver Sulfadiazine (Silvadene 1% 20 Gm) 8 ea TOP BID [facility] Last Admin: 02/09/19 09:17 Dose: Not Given Silver Sulfadiazine (Silvadene 1% 20 Gm) 0 ea TOP DAILY [facility] Last Admin: 12/12/18 09:17 Dose: Not Given - Labs Labs: 12/11/18 14:06 12/11/18 14:06 PT 15.5 SECONDS (9.7-12.2) H 12/05/18 09:23 INR 1.4 12/05/18 09:23 APTT 35 SECONDS (21-34) H 12/05/18 09:23 - Head Exam Head Exam: ATRAUMATIC, NORMOCEPHALIC - ENT Exam ENT Exam: Mucous Membranes Moist - Neck Exam Neck Exam: Normal Inspection - Respiratory Exam Respiratory Exam: Clear to Ausculation Bilateral - Cardiovascular Exam Cardiovascular Exam: REGULAR RHYTHM Assessment and Plan (1) COPD (chronic obstructive pulmonary disease) Assessment & Plan: Continue nebulizer treatment BiPAP as needed Potassium and magnesium supplement Out of bed to chair Physical therapy Status: Acute (2) Anemia Status: Acute (3) DVT (deep venous thrombosis) Status: Acute (4) Cellulitis Status: Acute (5) Hyponatremia Status: Acute (6) Acute pancreatitis Status: Acute
[2018-12-12 11:57] LABS: AMYLASE 102 U/L (30-110); LIPASE 323 U/L (23-300)
--- NOTE | 2018-12-12 13:17 | PN ---
DATE: 12/12/2018 LOCATION: 357, bed A. SUBJECTIVE: This is a 58-year-old female seen out of the intensive care unit without significant clinical changes, but with less abdominal pain. No nausea or vomiting. No chest pain or palpitation, but complained of lower extremity pain due to leg wounds. The entire chart is reviewed including the most recent lab results and today's lab is still pending, however, the patient has so far normal hemoglobin and hematocrit, but electrolyte imbalance as per yesterday's report with hypoproteinemia, hypoalbuminemia, and hypomagnesemia with low sodium of 131, potassium of 3.3. PHYSICAL EXAMINATION: GENERAL: A 58-year-old female. VITAL SIGNS: Afebrile with pulse of 92, respiratory rate 20 to 22, blood pressure 110/68. HEENT: Pale, dry mucous membranes, nonicteric sclerae. LUNGS: Severe crepitation, decreased air entry at bases. HEART: Positive S1 and S2. ABDOMEN: Soft with mild generalized tenderness. No mass or organomegaly. No rebound tenderness or guarding. EXTREMITIES: No significant edema, clubbing, or cyanosis. NEUROLOGIC: No reported new neurological deficits, sensory or motor. IMPRESSION: 1. Recent history of acute pancreatitis with pancreatic necrosis. 2. Electrolyte imbalance most likely secondary to above. 3. Malnutrition with hypoalbuminemia. 4. Lower extremity bilateral wound of unclear etiology. 5. 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 SUGGESTIONS: 1. Agree with your plan. 2. Hepatomegaly at surgical consultation and evaluation. 3. Correct any underlying electrolyte imbalance. 4. Repeat abdominal ultrasound or MRCP for full evaluation of the pancreas. 5. Repeat serum lipase and amylase level. 6. The patient will need endoscopic evaluation of the GI tract when she is more stable clinically. 7. Further recommendation to follow. Yin Patel MD
[2018-12-12 15:14] LABS: BLOOD UREA NITROGEN 6 mg/dL (7-17); CALCIUM 7.8 mg/dl (8.6-10.4); GFR NON-AFRICAN AMERICAN > 60
[2018-12-12] MEDS: Potassium Chloride 20 mEq/15 ml LIQ UD PO SCH ×2 (16:56→19:10)
--- NOTE | 2018-12-12 18:25 | CP.PCM.PN ---
Subjective - Date & Time of Evaluation Date of Evaluation: 12/12/18 Time of Evaluation: 14:20 - Subjective Subjective: Podiatry Progress Note for Dr. Cuba 58 y/o F patient seen at bedside for bilateral leg wounds. Patient is AAO x 3 and NAD. Patient denies any pain in her LE wounds. Patient still denying dressing to her LE as it causes her to feel itchy. She denies any further pedal complaints at this time. Patient denies any overnight N/V/F/C/CP/SOB Objective - Vital Signs/Intake and Output Vital Signs (last 24 hours): Temp Pulse Resp BP Pulse Ox 98.2 F 103 H 20 103/65 95 12/12/18 16:00 12/12/18 16:00 12/12/18 16:00 12/12/18 16:00 12/12/18 16:00 Intake and Output: 12/12/18 12/12/18 06:59 18:59 Intake Total 850 Output Total 800 Balance 50 - Medications Medications: Current Medications Acetaminophen (Tylenol 325 Mg Supp) 325 mg [place] Q4 PRN PRN Reason: Fever >100.4 F Acetaminophen (Tylenol 650 Mg Supp) 650 mg [place] ONCE PRN PRN Reason: pre-transfusion Albuterol/Ipratropium (Duoneb 3 Mg/0.5 Mg (3 Ml) Ud) 3 ml INH RQ6 [facility] Last Admin: 12/12/18 13:20 Dose: 3 ml Docusate Sodium (Colace) 100 mg PO BID [facility] Last Admin: 12/12/18 17:01 Dose: Not Given Hydromorphone HCl (Dilaudid) 0.5 mg IVP Q2 PRN PRN Reason: Pain, severe (8-10) Last Admin: 12/12/18 16:56 Dose: 0.5 mg Lactic Acid (Lac-Hydrin 12% Lotion (225 G)) 0 gm EXT DAILY [facility] Last Admin: 12/12/18 09:12 Dose: 1 applic Pantoprazole Sodium (Protonix Ec Tab) 40 mg PO DAILY [facility] Last Admin: 12/12/18 09:10 Dose: 40 mg Potassium Chloride (K-Dur 20 Meq Er Tab) 20 meq PO DAILY [facility] Last Admin: 12/12/18 09:10 Dose: 20 meq Potassium Chloride (Potassium Chloride Oral Soln) 40 meq PO Q4 [facility] Stop: 12/12/18 20:01 Last Admin: 12/12/18 16:56 Dose: 40 meq Silver Sulfadiazine (Silvadene 1% 20 Gm) 8 ea TOP BID [facility] Last Admin: 12/12/18 09:17 Dose: Not Given Silver Sulfadiazine (Silvadene 1% 20 Gm) 0 ea TOP DAILY [facility] Last Admin: 12/12/18 09:17 Dose: Not Given - Labs Labs: 12/11/18 14:06 12/12/18 14:44 PT 15.5 SECONDS (9.7-12.2) H 12/05/18 09:23 INR 1.4 12/05/18 09:23 APTT 35 SECONDS (21-34) H 12/05/18 09:23 - Constitutional Appears: Non-toxic, No Acute Distress - Head Exam Head Exam: ATRAUMATIC, NORMOCEPHALIC - Extremities Exam Additional comments: LE focused exam: Vasc: DP/PT pulses fully palpable 2/4 b/l. Skin temperature warm to warm from proximal to distal. Cap refill < 3 seconds to all digits b/l. Minimal edema noted to b/l legs. Neuro: Epicritic and protective sensation grossly intact b/l. Derm: Multiple superficial ulcerations noted to b/l legs (Almost healed), covered by dry scab with no erythema present. No drainage, no malodor, no other clinical signs of infection. MSK: No Pain on palpation to b/l legs. No gross deformities noted - Neurological Exam Neurological Exam: Alert, Awake, Oriented x3 Assessment and Plan - Assessment and Plan (Free Text) Assessment: 58 y/o F patient seen at bedside for bilateral leg wounds Plan: Patient seen and evaluated Plan discussed with Dr. Cuba Charts, labs and vitals reviewed; Afebrile, absent leukocytosis Left leg wound cx: Enterococcous Faecalis B/l legs - Applied SSD C/W ammonium lactate 12% BID for dryness Arterial Duplex LE; Pending report. No plan for surgical intervention at this time Stable from podiatry standpoint Podiatry will continue to follow up the patient while in house
--- NOTE | 2018-12-12 20:16 | PN ---
DATE: 12/12/2018 SUBJECTIVE: The patient is seen. The patient continues to improve slowly. She states she has been trying to stretch out her pain medication not to take every 2 hours. She states she had no problem weaning herself from Dilaudid and she goes back home, she only takes [place] and Tylenol No. 4. PHYSICAL EXAMINATION: VITAL SIGNS: Temperature 98.5, heart rate 93, blood pressure 150/98, respirations 20, oxygen sat 97%. REVIEW OF SYSTEMS: GENERAL: She is alert, verbal, oriented x3, seen in her room, not in acute respiratory distress. She seems to be comfortable. SKIN: No diaphoresis. HEENT: No headache. No dizziness. NECK: Supple. RESPIRATORY: No dyspnea. CARDIOVASCULAR: No chest pain. GASTROINTESTINAL: The patient is able to tolerate solid food, still has abdominal pain but tolerable. EXTREMITIES: Moving extremities. MUSCULOSKELETAL: Feels weak. NEURO: Alert and oriented x3. GENITOURINARY: No urinary problems. MENTAL STATUS EXAMINATION: Cachectic-looking female who looks stated age. Mood is much calmer. Affect is reactive. Speech spontaneous. Thought process coherent. Thought content, no overt psychosis. No suicidal or homicidal ideation. Attention and memory seem to be fair. Insight and judgement are fair. Impulse control is fair. IMPRESSION: History of recurrent depression, anxiety, opiate dependence, pancreatitis. PLAN AND RECOMMENDATIONS: The patient was seen. Meds reviewed. Continue present pain meds as ordered. The patient is still on Dilaudid 0.5 mg IV every 2 hours p.r.n. but she states she is going to stretch it in a preparation for discharge to home. For now, no psych meds needed. Grant Adhikari MD
[2018-12-12] MEDS: Enoxaparin 60 mg Syringe SC SCH (21:24)
[2018-12-13] MEDS: HYDROmorphone 0.5 mg/0.5 ml ISec IVP PRN ×10 (00:02→23:13)
[2018-12-13] MEDS: Albuterol-Ipratrop 3 mg / 0.5 (3 ml) UD INH SCH ×5 (02:15→19:54)
--- NOTE | 2018-12-13 06:11 | CP.PCM.PN ---
Subjective - Date & Time of Evaluation Date of Evaluation: 12/12/18 Time of Evaluation: 23:00 - Subjective Subjective: SURGERY PROGRESS NOTE FOR DR. AUSTIN Patient seen and examined at bedside. Denies any complaints. Objective - Vital Signs/Intake and Output Vital Signs (last 24 hours): Temp Pulse Resp BP Pulse Ox 98.6 F 100 H 20 113/73 96 12/13/18 00:00 12/13/18 00:00 12/13/18 00:00 12/13/18 00:00 12/13/18 00:00 Intake and Output: 12/12/18 12/13/18 18:59 06:59 Intake Total 850 480 Output Total 800 400 Balance 50 80 - Medications Medications: Current Medications Acetaminophen (Tylenol 325 Mg Supp) 325 mg [place] Q4 PRN PRN Reason: Fever >100.4 F Acetaminophen (Tylenol 650 Mg Supp) 650 mg [place] ONCE PRN PRN Reason: pre-transfusion Albuterol/Ipratropium (Duoneb 3 Mg/0.5 Mg (3 Ml) Ud) 3 ml INH RQ6 [facility] Last Admin: 12/13/18 02:15 Dose: 3 ml Docusate Sodium (Colace) 100 mg PO BID [facility] Last Admin: 12/12/18 17:01 Dose: Not Given Enoxaparin Sodium (Lovenox) 50 mg SC Q12 [facility] Last Admin: 12/12/18 21:24 Dose: 50 mg Hydromorphone HCl (Dilaudid) 0.5 mg IVP Q2 PRN PRN Reason: Pain, severe (8-10) Last Admin: 12/13/18 05:51 Dose: 0.5 mg Lactic Acid (Lac-Hydrin 12% Lotion (225 G)) 0 gm EXT DAILY [facility] Last Admin: 12/12/18 09:12 Dose: 1 applic Pantoprazole Sodium (Protonix Ec Tab) 40 mg PO DAILY [facility] Last Admin: 12/12/18 09:10 Dose: 40 mg Potassium Chloride (K-Dur 20 Meq Er Tab) 20 meq PO DAILY [facility] Last Admin: 12/12/18 09:10 Dose: 20 meq Silver Sulfadiazine (Silvadene 1% 20 Gm) 8 ea TOP BID [facility] Last Admin: 12/12/18 09:17 Dose: Not Given Silver Sulfadiazine (Silvadene 1% 20 Gm) 0 ea TOP DAILY [facility] Last Admin: 12/12/18 09:17 Dose: Not Given - Labs Labs: 12/11/18 14:06 12/12/18 14:44 PT 15.5 SECONDS (9.7-12.2) H 12/05/18 09:23 INR 1.4 12/05/18 09:23 APTT 35 SECONDS (21-34) H 12/05/18 09:23 - Constitutional Appears: Non-toxic, No Acute Distress - Head Exam Head Exam: ATRAUMATIC, NORMAL INSPECTION - Eye Exam Eye Exam: EOMI, Normal appearance - Respiratory Exam Respiratory Exam: NORMAL BREATHING PATTERN. absent: Respiratory Distress - Cardiovascular Exam Cardiovascular Exam: +S1, +S2 - Neurological Exam Neurological Exam: Alert, Awake - Psychiatric Exam Psychiatric exam: Normal Affect, Normal Mood Assessment and Plan - Assessment and Plan (Free Text) Assessment: 58yo F with DVT. Surgery requested for IVC filter - OR tomorrow AM for IVC filter - NPO past midnight - Hold AM lovenox - Discussed plan with Dr. Geovanny Smith PGY-4
[2018-12-13 07:58] LABS: BASO # 0.1 K/uL (0.0-0.2); BASO % 0.9 % (0.0-2.0); EOS # 0.2 K/uL (0.0-0.7); EOS % 2.5 % (0.0-4.0); HEMOGLOBIN 10.9 g/dL (11.0-16.0); LYMPH # 0.7 K/uL (1.0-4.3); LYMPH % 8.9 % (20.0-40.0); MEAN CELL VOLUME 86.4 fL (81.0-99.0); MEAN CORPUSCULAR HEMOGLOBIN 27.8 pg (27.0-31.0); MEAN CORPUSCULAR HGB CONC 32.1 g/dL (33.0-37.0); MEAN PLATELET VOLUME 8.2 fL (7.2-11.7); MONO # 0.7 K/uL (0.0-0.8); MONO % 8.7 % (0.0-10.0); PLATELET COUNT 258 K/uL (130-400); RBC 3.93 Mil/uL (3.80-5.20); RED CELL DISTRIBUTION WIDTH 18.2 % (11.5-14.5); WHITE BLOOD COUNT 7.7 K/uL (4.8-10.8)
[2018-12-13 08:07] LABS: INR 1.3
[2018-12-13 08:51] LABS: ALBUMIN 2.3 g/dL (3.5-5.0); ALT/SGPT 25 U/L (9-52); AST/SGOT 34 U/L (14-36); BLOOD UREA NITROGEN 6 mg/dL (7-17); CALCIUM 7.7 mg/dl (8.6-10.4); GFR NON-AFRICAN AMERICAN > 60
--- NOTE | 2018-12-13 09:15 | CP.PCM.PN ---
Subjective - Date & Time of Evaluation Date of Evaluation: 12/13/18 Time of Evaluation: 09:15 - Subjective Subjective: patient has existing filter in ivc Objective - Vital Signs/Intake and Output Vital Signs (last 24 hours): Temp Pulse Resp BP Pulse Ox 97.9 F 98 H 20 106/73 96 12/13/18 08:00 12/13/18 08:00 12/13/18 08:00 12/13/18 08:00 12/13/18 08:00 Intake and Output: 12/13/18 12/13/18 06:59 18:59 Intake Total 480 200 Output Total 400 430 Balance 80 -230 - Medications Medications: Current Medications Acetaminophen (Tylenol 325 Mg Supp) 325 mg [place] Q4 PRN PRN Reason: Fever >100.4 F Acetaminophen (Tylenol 650 Mg Supp) 650 mg [place] ONCE PRN PRN Reason: pre-transfusion Albuterol/Ipratropium (Duoneb 3 Mg/0.5 Mg (3 Ml) Ud) 3 ml INH RQ6 [facility] Last Admin: 12/13/18 02:15 Dose: 3 ml Docusate Sodium (Colace) 100 mg PO BID [facility] Last Admin: 12/12/18 17:01 Dose: Not Given Enoxaparin Sodium (Lovenox) 50 mg SC Q12 [facility] Last Admin: 12/12/18 21:24 Dose: 50 mg Hydromorphone HCl (Dilaudid) 0.5 mg IVP Q2 PRN PRN Reason: Pain, severe (8-10) Last Admin: 12/13/18 05:51 Dose: 0.5 mg Lactic Acid (Lac-Hydrin 12% Lotion (225 G)) 0 gm EXT DAILY [facility] Last Admin: 12/12/18 09:12 Dose: 1 applic Pantoprazole Sodium (Protonix Ec Tab) 40 mg PO DAILY [facility] Last Admin: 12/12/18 09:10 Dose: 40 mg Potassium Chloride (K-Dur 20 Meq Er Tab) 20 meq PO DAILY [facility] Last Admin: 12/12/18 09:10 Dose: 20 meq Silver Sulfadiazine (Silvadene 1% 20 Gm) 8 ea TOP BID [facility] Last Admin: 12/12/18 09:17 Dose: Not Given Silver Sulfadiazine (Silvadene 1% 20 Gm) 0 ea TOP DAILY [facility] Last Admin: 02/09/19 09:17 Dose: Not Given - Labs Labs: 12/13/18 07:52 12/13/18 07:52 PT 14.0 SECONDS (9.7-12.2) H 12/13/18 07:52 INR 1.3 12/13/18 07:52 APTT 35 SECONDS (21-34) H 12/13/18 07:52
[2018-12-13] MEDS: Potassium Chloride 20 mEq ER Tab PO SCH (09:38)
[2018-12-13] MEDS: Pantoprazole 40 mg EC Tab PO SCH (09:38)
[2018-12-13] MEDS: Silver Sulfadiazine 1% Cream (20 gm) TOP SCH ×2 (09:39→09:40)
[2018-12-13] MEDS: Enoxaparin 60 mg Syringe SC SCH ×2 (09:39→21:12)
--- NOTE | 2018-12-13 09:41 | CP.PCM.PN ---
Subjective - Date & Time of Evaluation Date of Evaluation: 12/13/18 Time of Evaluation: 09:40 - Subjective Subjective: Pulmonary follow up, Covering Dr Lucero The Patient was seen and examined at the bedside, Medical records reviewed, and management issues were discussed and formulated with the house staff. Events reviewed Patient seen comfortable in bed in no apparent distress No shortness of breath, chest pain or cough Afebrile Adequate saturation 98-100% on 2L nasal cannula Objective - Vital Signs/Intake and Output Vital Signs (last 24 hours): Temp Pulse Resp BP Pulse Ox 97.9 F 98 H 20 106/73 96 12/13/18 08:00 12/13/18 08:00 12/13/18 08:00 12/13/18 08:00 12/13/18 08:00 Intake and Output: 12/13/18 12/13/18 06:59 18:59 Intake Total 480 200 Output Total 400 430 Balance 80 -230 - Medications Medications: Current Medications Acetaminophen (Tylenol 325 Mg Supp) 325 mg [place] Q4 PRN PRN Reason: Fever >100.4 F Acetaminophen (Tylenol 650 Mg Supp) 650 mg [place] ONCE PRN PRN Reason: pre-transfusion Albuterol/Ipratropium (Duoneb 3 Mg/0.5 Mg (3 Ml) Ud) 3 ml INH RQ6 [facility] Last Admin: 12/13/18 07:52 Dose: 3 ml Docusate Sodium (Colace) 100 mg PO BID [facility] Last Admin: 12/13/18 09:38 Dose: 100 mg Enoxaparin Sodium (Lovenox) 50 mg SC Q12 [facility] Last Admin: 12/13/18 09:39 Dose: Not Given Hydromorphone HCl (Dilaudid) 0.5 mg IVP Q2 PRN PRN Reason: Pain, severe (8-10) Last Admin: 12/13/18 09:34 Dose: 0.5 mg Lactic Acid (Lac-Hydrin 12% Lotion (225 G)) 0 gm EXT DAILY [facility] Last Admin: 12/12/18 09:12 Dose: 1 applic Pantoprazole Sodium (Protonix Ec Tab) 40 mg PO DAILY [facility] Last Admin: 12/13/18 09:38 Dose: 40 mg Potassium Chloride (K-Dur 20 Meq Er Tab) 20 meq PO DAILY [facility] Last Admin: 12/13/18 09:38 Dose: 20 meq Silver Sulfadiazine (Silvadene 1% 20 Gm) 8 ea TOP BID [facility] Last Admin: 12/13/18 09:39 Dose: Not Given Silver Sulfadiazine (Silvadene 1% 20 Gm) 0 ea TOP DAILY [facility] Last Admin: 12/13/18 09:40 Dose: Not Given - Labs Labs: 12/13/18 07:52 12/13/18 07:52 PT 14.0 SECONDS (9.7-12.2) H 12/13/18 07:52 INR 1.3 12/13/18 07:52 APTT 35 SECONDS (21-34) H 12/13/18 07:52
[2018-12-13] MEDS: LIPASE/PROTEASE/AMYLASE 4,200 U ECC PO SCH ×3 (09:42→18:40)
[2018-12-13 11:38] LABS: EOSINOPHIL 4 % (0-4); LYMPHOCYTE 5 % (20-40); MONOCYTE 7 % (0-10); NEUTROPHIL 83 % (50-75); PLATELET ESTIMATE NORMAL (NORMAL); REACTIVE LYMPHOCYTES 1 % (0-0); TOTAL CELLS COUNTED 100
[2018-12-13 11:39] LABS: ANISOCYTOSIS MODERATE; GIANT PLATELETS PRESENT; LARGE PLATELETS PRESENT; TOXIC GRANULATION PRESENT
[2018-12-13 11:40] LABS: POLYCHROMIC SLIGHT
[2018-12-13 11:41] LABS: HYPOCHROMIC MODERATE
[2018-12-13] MEDS: Ammonium Lactate 12% Lotion (225 g) EXT SCH ×2 (14:02→14:18)
--- NOTE | 2018-12-13 18:54 | CP.PCM.PN ---
Subjective - Date & Time of Evaluation Date of Evaluation: 12/12/18 Time of Evaluation: 07:20 - Subjective Subjective: dictated Objective - Vital Signs/Intake and Output Vital Signs (last 24 hours): Temp Pulse Resp BP Pulse Ox 97.7 F 98 H 20 124/81 99 12/13/18 16:33 12/13/18 16:33 12/13/18 16:33 12/13/18 16:33 12/13/18 16:33 Intake and Output: 12/13/18 12/13/18 06:59 18:59 Intake Total 480 600 Output Total 400 430 Balance 80 170 - Medications Medications: Current Medications Acetaminophen (Tylenol 325 Mg Supp) 325 mg [place] Q4 PRN PRN Reason: Fever >100.4 F Acetaminophen (Tylenol 650 Mg Supp) 650 mg [place] ONCE PRN PRN Reason: pre-transfusion Albuterol/Ipratropium (Duoneb 3 Mg/0.5 Mg (3 Ml) Ud) 3 ml INH RQ6 [facility] Last Admin: 12/13/18 16:10 Dose: 3 ml Docusate Sodium (Colace) 100 mg PO BID [facility] Last Admin: 12/13/18 18:43 Dose: Not Given Enoxaparin Sodium (Lovenox) 50 mg SC Q12 [facility] Last Admin: 12/13/18 09:39 Dose: Not Given Hydromorphone HCl (Dilaudid) 0.5 mg IVP Q2 PRN PRN Reason: Pain, severe (8-10) Last Admin: 12/13/18 16:29 Dose: 0.5 mg Lactic Acid (Lac-Hydrin 12% Lotion (225 G)) 0 gm EXT DAILY [facility] Last Admin: 12/13/18 14:18 Dose: 1 applic Pantoprazole Sodium (Protonix Ec Tab) 40 mg PO DAILY [facility] Last Admin: 12/13/18 09:38 Dose: 40 mg Potassium Chloride (K-Dur 20 Meq Er Tab) 20 meq PO DAILY [facility] Last Admin: 12/13/18 09:38 Dose: 20 meq Silver Sulfadiazine (Silvadene 1% 20 Gm) 8 ea TOP BID [facility] Last Admin: 12/13/18 09:39 Dose: Not Given Silver Sulfadiazine (Silvadene 1% 20 Gm) 0 ea TOP DAILY [facility] Last Admin: 12/13/18 09:40 Dose: Not Given - Labs Labs: 12/13/18 07:52 12/13/18 07:52 PT 14.0 SECONDS (9.7-12.2) H 12/13/18 07:52 INR 1.3 12/13/18 07:52 APTT 35 SECONDS (21-34) H 12/13/18 07:52
--- NOTE | 2018-12-13 18:54 | CP.PCM.PN ---
Subjective - Date & Time of Evaluation Date of Evaluation: 12/13/18 Time of Evaluation: 07:20 - Subjective Subjective: dictated Objective - Vital Signs/Intake and Output Vital Signs (last 24 hours): Temp Pulse Resp BP Pulse Ox 97.7 F 98 H 20 124/81 99 12/13/18 16:33 12/13/18 16:33 12/13/18 16:33 12/13/18 16:33 12/13/18 16:33 Intake and Output: 12/13/18 12/13/18 06:59 18:59 Intake Total 480 600 Output Total 400 430 Balance 80 170 - Medications Medications: Current Medications Acetaminophen (Tylenol 325 Mg Supp) 325 mg [place] Q4 PRN PRN Reason: Fever >100.4 F Acetaminophen (Tylenol 650 Mg Supp) 650 mg [place] ONCE PRN PRN Reason: pre-transfusion Albuterol/Ipratropium (Duoneb 3 Mg/0.5 Mg (3 Ml) Ud) 3 ml INH RQ6 [facility] Last Admin: 12/13/18 16:10 Dose: 3 ml Docusate Sodium (Colace) 100 mg PO BID [facility] Last Admin: 12/13/18 18:43 Dose: Not Given Enoxaparin Sodium (Lovenox) 50 mg SC Q12 [facility] Last Admin: 12/13/18 09:39 Dose: Not Given Hydromorphone HCl (Dilaudid) 0.5 mg IVP Q2 PRN PRN Reason: Pain, severe (8-10) Last Admin: 12/13/18 16:29 Dose: 0.5 mg Lactic Acid (Lac-Hydrin 12% Lotion (225 G)) 0 gm EXT DAILY [facility] Last Admin: 12/13/18 14:18 Dose: 1 applic Pantoprazole Sodium (Protonix Ec Tab) 40 mg PO DAILY [facility] Last Admin: 12/13/18 09:38 Dose: 40 mg Potassium Chloride (K-Dur 20 Meq Er Tab) 20 meq PO DAILY [facility] Last Admin: 12/13/18 09:38 Dose: 20 meq Silver Sulfadiazine (Silvadene 1% 20 Gm) 8 ea TOP BID [facility] Last Admin: 12/13/18 09:39 Dose: Not Given Silver Sulfadiazine (Silvadene 1% 20 Gm) 0 ea TOP DAILY [facility] Last Admin: 12/13/18 09:40 Dose: Not Given - Labs Labs: 12/13/18 07:52 12/13/18 07:52 PT 14.0 SECONDS (9.7-12.2) H 12/13/18 07:52 INR 1.3 12/13/18 07:52 APTT 35 SECONDS (21-34) H 12/13/18 07:52
--- NOTE | 2018-12-13 19:55 | PN ---
DATE: 12/13/2018 SUBJECTIVE: The patient is seen. The patient is still med seeking, but she states that she wants to do in her own being weaned off from her pain medication. The patient is made aware that she cannot take IV Dilaudid at home, but she said when she goes home she only takes Tylenol No. 4 and [place], still med seeking, but the abdominal pain slightly Improved. OBJECTIVE: VITAL SIGNS: Temperature is 97.9, heart rate 88, blood pressure 106/73, respirations 20, oxygen saturations 96%. REVIEW OF SYSTEMS: GENERAL: The patient is alert and oriented x3, seen in her room resting, not in acute respiratory distress. Still med seeking. SKIN: No diaphoresis. No pruritus. HEENT: No headache. No dizziness. NECK: Supple. RESPIRATORY: No dyspnea. CARDIOVASCULAR: No chest pain. GASTROINTESTINAL: She is eating better, abdominal pain is resolving, the patient is tolerating it. EXTREMITIES: Moving extremities, but the patient has been bed-bound for most of her stay in the hospital. The patient was offered to go for rehab. She said she does want to go there for rehab because she has enough help at home. Neuro- alert and oriented x 3. Musculoskeletal- weakness improving slowly. - no dysuria.Gait is unsteady at times. MENTAL STATUS EXAM Cachectic looking female who looks stated age, seen in her room resting, not agitated. Still med seeking. Speech spontaneous. Affect is restricted. Mood is dysphoric. Thought process coherent. Thought content, no psychosis. No suicidal ideation. The patient states that she wants to go home soon as stated. Attention and memory seem to be fair. Insight and judgment limited. Impulse control is fair at this time. IMPRESSION: History of recurrent depression, anxiety as well as opiate dependence, pancreatitis, improving. RECOMMENDATIONS The patient seen, meds reviewed. Continue present management. Continue pain meds as ordered. Psych peck, she is stable for discharge once medically cleared. Grant Adhikari MD [facility]
--- NOTE | 2018-12-13 21:22 | VASCLAB ---
Date of service: 12/12/2018 PROCEDURE: Lower Extremity Venous Duplex Exam. HISTORY: CO2 42 PRIORS: None. TECHNIQUE: Bilateral common femoral, femoral, popliteal and posterior tibial, peroneal and great saphenous veins were evaluated. Flow was assessed with color Doppler, compressibility, assessment of phasic flow and augmentation response. Report prepared by GENTRY Ponce FINDINGS: RIGHT: 1. Common Femoral Vein: 1.1. Compressibility - Partial: Thrombus - Acute : Flow - Reduced 2. Femoral Vein: 2.1. Compressibility - Fully compressible: Thrombus - None : Flow - Phasic: Augmentation -Normal: Reflux - None. 3. Popliteal Vein: 3.1. Compressibility - Fully compressible: Thrombus - None : Flow - Phasic: Augmentation -Normal: Reflux - None. 4. Posterior Tibial Vein: 4.1. Compressibility - Fully compressible: Thrombus - None: Flow - Phasic: Augmentation -Normal: Reflux - None. 5. Peroneal Vein: 5.1. Compressibility - Fully compressible: Thrombus - None: Flow - Phasic: Augmentation -Normal: Reflux - None. 6. Great Saphenous Vein: 6.1. Compressibility - Fully compressible: Thrombus - None: Flow - Phasic: Augmentation - Normal: Reflux - None. LEFT: 1. Common Femoral Vein: 1.1. Compressibility - Fully compressible: Thrombus - None: Flow - Phasic: Augmentation -Normal: Reflux - None. 2. Femoral Vein: 2.1. Compressibility - Fully compressible: Thrombus - None: Flow - Phasic: Augmentation -Normal: Reflux - None. 3. Popliteal Vein: 3.1. Compressibility - Fully compressible: Thrombus - None : Flow - Phasic: Augmentation -Normal: Reflux - None. 4. Posterior Tibial Vein: 4.1. Compressibility - Fully compressible: Thrombus - None: Flow - Phasic: Augmentation -Normal: Reflux - None. 5. Peroneal Vein: 5.1. Unable to visualize due to swelling. 6. Great Saphenous Vein: 6.1. Compressibility - Fully compressible: Thrombus - None: Flow - Phasic: Augmentation - Normal: Reflux - None. OTHER FINDINGS: None. IMPRESSION: Right: Partial acute deep vein thrombosis of the right common femoral vein, extending into the saphenofemoral junction. Left: No evidence of deep or superficial vein thrombosis of the examined veins, in the left lower extremity. Findings were reported to Alfredito Nance at 4:50 p.m.
--- NOTE | 2018-12-13 21:35 | VASCLAB ---
Date of service: 12/12/2018 PROCEDURE: Right Upper Extremity Venous Duplex Exam HISTORY: dvt PRIORS: None. TECHNIQUE: Right upper extremity, internal jugular, subclavian, axillary, brachial, ulnar, radial, basilic and upper cephalic veins were evaluated. Flow was assessed with color Doppler, compressibility, assessment of phasic flow and augmentation response. Report prepared by GENTRY Ponce FINDINGS: RIGHT: 1. Internal Jugular: 1.1. Compressibility - Fully compressible: Thrombus - None : Flow - Phasic: Augmentation -Normal: Reflux - None. 2. Subclavian: Appeared patent by color fill analysis. Difficult compression to due bony surface. 2.1. Thrombus - None : Flow - Phasic: Augmentation -Normal: Reflux - None. 3. Axillary: 3.1. Compressibility - Fully compressible: Thrombus - None : Flow - Phasic: Augmentation -Normal: Reflux - None. 4. Brachial: 4.1. Compressibility - Fully compressible: Thrombus - None: Flow - Phasic: Augmentation -Normal: Reflux - None. 5. Ulnar: 5.1. Compressibility - Fully compressible: Thrombus - None: Flow - Phasic: Augmentation -Normal: Reflux - None. 6. Radial: 6.1. Compressibility - Fully compressible: Thrombus - None: Flow - Phasic: Augmentation - Normal: Reflux - None. 7. Cephalic: 7.1. Compressibility - Partial: Thrombus - Acute: Flow - Reduced 8. Basilic: 8.1. Compressibility - Fully compressible: Thrombus - None: Flow - Phasic: Augmentation -Normal: Reflux - None. OTHER FINDINGS: Normal venous flow noted in the LEFT internal jugular and left subclavian veins. Right upper arm soft tissue edema. IMPRESSION: Right: 1. Superficial phlebitis of the right cephalic vein at the antecubital level. 2. No evidence of deep vein thrombosis of the right upper extremity. Findings were reported to Alfredito Nance at 5:49 p.m.
--- NOTE | 2018-12-13 23:09 | PN ---
DATE: 12/13/2018 SUBJECTIVE: The patient Kym Conde is feeling better. She has decreased nausea. She has recurrent multiple DVTs and she is on anticoagulant per GI and she is for IVC filter. PHYSICAL EXAMINATION: VITAL SIGNS: Blood pressure 124/81, pulse 98, respiratory rate 20, and temperature 97.7. LUNGS: Clear. CARDIOVASCULAR SYSTEM: S1 and S2, regular. ABDOMEN: Soft. ASSESSMENT: 1. Deep venous thrombosis for inferior vena cava filter. 2. Hypokalemia. 3. Acute hemorrhagic necrotizing pancreatitis resolved. PLAN: We will give IVC filter. Monitor the patient. Connor Baker MD
[2018-12-14] MEDS: HYDROmorphone 0.5 mg/0.5 ml ISec IVP PRN ×10 (01:15→21:30)
[2018-12-14] MEDS: Albuterol-Ipratrop 3 mg / 0.5 (3 ml) UD INH SCH ×4 (01:15→20:33)
[2018-12-14] MEDS: Silver Sulfadiazine 1% Cream (20 gm) TOP SCH ×3 (09:42→19:00)
[2018-12-14] MEDS: Pantoprazole 40 mg EC Tab PO SCH (09:43)
[2018-12-14] MEDS: Potassium Chloride 20 mEq ER Tab PO SCH (09:43)
[2018-12-14] MEDS: Enoxaparin 60 mg Syringe SC SCH ×2 (09:44→21:31)
[2018-12-14] MEDS: LIPASE/PROTEASE/AMYLASE 4,200 U ECC PO SCH ×3 (09:44→17:25)
[2018-12-14] MEDS: Ammonium Lactate 12% Lotion (225 g) EXT SCH (09:45)
--- NOTE | 2018-12-14 09:48 | CP.PCM.PN ---
Subjective - Date & Time of Evaluation Date of Evaluation: 12/14/18 Time of Evaluation: 09:45 - Subjective Subjective: Podiatry Progress Note for Dr. Cuba 58 y/o F patient seen at bedside for bilateral leg wounds. Patient is AAO x 3 and NAD. Patient denies any pain in her LE wounds. Reports her legs feel fine and reports no pain. Patient still denying dressing to her LE as it causes her to feel itchy. She denies any further pedal complaints at this time. Patient denies any overnight N/V/F/C/CP/SOB Objective - Vital Signs/Intake and Output Vital Signs (last 24 hours): Temp Pulse Resp BP Pulse Ox 97.3 F L 84 20 113/80 100 12/14/18 07:15 12/14/18 07:15 12/14/18 07:15 12/14/18 07:15 12/14/18 07:15 - Medications Medications: Current Medications Acetaminophen (Tylenol 325 Mg Supp) 325 mg [place] Q4 PRN PRN Reason: Fever >100.4 F Acetaminophen (Tylenol 650 Mg Supp) 650 mg [place] ONCE PRN PRN Reason: pre-transfusion Albuterol/Ipratropium (Duoneb 3 Mg/0.5 Mg (3 Ml) Ud) 3 ml INH RQ6 [facility] Last Admin: 12/14/18 08:25 Dose: 3 ml Docusate Sodium (Colace) 100 mg PO BID [facility] Last Admin: 12/14/18 09:43 Dose: 100 mg Enoxaparin Sodium (Lovenox) 50 mg [place] Q12 [facility] Last Admin: 12/14/18 09:44 Dose: 50 mg Hydromorphone HCl (Dilaudid) 0.5 mg IVP Q2 PRN PRN Reason: Pain, severe (8-10) Last Admin: 12/14/18 08:04 Dose: 0.5 mg Lactic Acid (Lac-Hydrin 12% Lotion (225 G)) 0 gm EXT DAILY [facility] Last Admin: 12/14/18 09:45 Dose: 1 applic Pantoprazole Sodium (Protonix Ec Tab) 40 mg PO DAILY [facility] Last Admin: 12/14/18 09:43 Dose: 40 mg Potassium Chloride (K-Dur 20 Meq Er Tab) 20 meq PO DAILY [facility] Last Admin: 12/14/18 09:43 Dose: 20 meq Silver Sulfadiazine (Silvadene 1% 20 Gm) 8 ea TOP BID [facility] Last Admin: 12/14/18 09:44 Dose: Not Given Silver Sulfadiazine (Silvadene 1% 20 Gm) 0 ea TOP DAILY [facility] Last Admin: 12/14/18 09:42 Dose: 1 ml - Labs Labs: 12/13/18 07:52 12/13/18 07:52 PT 14.0 SECONDS (9.7-12.2) H 12/13/18 07:52 INR 1.3 12/13/18 07:52 APTT 35 SECONDS (21-34) H 12/13/18 07:52 - Constitutional Appears: Well, Non-toxic, No Acute Distress - Extremities Exam Additional comments: LE focused exam: Vasc: DP/PT pulses fully palpable 2/4 b/l. Skin temperature warm to warm from proximal to distal. Cap refill < 3 seconds to all digits b/l. Minimal edema noted to b/l legs. Neuro: Epicritic and protective sensation grossly intact b/l. Derm: Multiple superficial ulcerations noted to b/l legs (Almost healed), covered by dry scab with no erythema present. No drainage, no malodor, no other clinical signs of infection. MSK: No Pain on palpation to b/l legs. No gross deformities noted - Neurological Exam Neurological Exam: Alert, Awake, Oriented x3 - Psychiatric Exam Psychiatric exam: Normal Affect, Normal Mood Assessment and Plan - Assessment and Plan (Free Text) Assessment: 58 y/o F patient seen at bedside for bilateral leg wounds Plan: Patient seen and evaluated Plan discussed with Dr. Cuba Charts, labs and vitals reviewed; Afebrile, absent leukocytosis Left leg wound cx: Enterococcous Faecalis B/l legs - Applied ammonium lactate C/W ammonium lactate 12% BID for dryness No plan for surgical intervention at this time Stable from podiatry standpoint Podiatry to sign off on this patient at this time; please re-consult if needed
[2018-12-14] MEDS ORDERED: HYDROmorphone 0.5 mg/0.5 ml ISec IVP PRN (14:04)
[2018-12-14] MEDS ORDERED: HYDROmorphone 0.5 mg/0.5 ml ISec SC PRN (14:30)
--- NOTE | 2018-12-14 15:11 | PN ---
DATE: 12/14/2018 LOCATION: 357, bed A. SUBJECTIVE: This is a 58-year-old female seen and examined in rounds without significant clinical changes or reported active bleeding. The entire chart is reviewed including but not limited to the most recent lab and radiology study results, current and previous medication list, still complaining of the lower extremities wounds pain with much less abdominal pain, but no actual chest pain, palpitation or significant shortness of breath. No vomiting, but mild nausea and dyspepsia. The entire chart is reviewed including the most recent lab results with hemoglobin 10.9 with normal white blood cells, a PT of 14, PTT of 35 with increased CO2 content of 41 indicative of respiratory alkalosis with low albumin, low creatinine with low calcium as well as low BUN and total protein. The latest lipase level was 323, to be repeated today. PHYSICAL EXAMINATION: GENERAL: A 58-year-old female, awake, alert and oriented. VITAL SIGNS: Afebrile with pulse of 82, respiratory rate 20 to 22, blood pressure of 118/82. HEENT: Showed dry oral mucous membrane. Nonicteric sclerae. LUNGS: Few scattered crepitation. Decreased air entry at bases. HEART: Positive S1 and S2. ABDOMEN: Soft with slight generalized tenderness. No mass or organomegaly. No rebound tenderness or guarding. EXTREMITIES: Without significant clubbing, cyanosis or edema. NEUROLOGIC: No reported new neurological deficits, sensory or motor. No reported new focal deficits. IMPRESSION: 1. Acute pancreatitis on top of chronic pancreatitis with element of pancreatic necrosis diagnosed by radiology study results. 2. Electrolyte imbalance, secondary to above. 3. Hypoalbuminemia with malnutrition. 4. Lower extremities bilateral wound. 5. The patient had reported elevated CEA with elevated CA-125. The possibility of lower gastrointestinal tract and lesion should be kept in mind. SUGGESTIONS: 1. Agree with your plan. 2. Endoscopic evaluation of the GI tract when the patient is more stable clinically. 3. MRCP. 4. Repeat serum lipase, amylase level. 5. Peripheral hyperalimentation with albumin IV. Yin Patel MD
[2018-12-14 15:30] LABS: ALB/GLOB RATIO 1.1 (1.0-2.1); ALBUMIN 2.7 g/dL (3.5-5.0); ALT/SGPT 20 U/L (9-52); AST/SGOT 39 U/L (14-36); BLOOD UREA NITROGEN 7 mg/dL (7-17); CALCIUM 7.9 mg/dl (8.6-10.4); GFR NON-AFRICAN AMERICAN > 60
--- NOTE | 2018-12-14 16:23 | CP.PCM.PN ---
Subjective - Date & Time of Evaluation Date of Evaluation: 12/14/18 Time of Evaluation: 16:20 - Subjective Subjective: dictated Objective - Vital Signs/Intake and Output Vital Signs (last 24 hours): Temp Pulse Resp BP Pulse Ox 97.8 F 98 H 20 94/63 L 100 12/14/18 15:00 12/14/18 15:00 12/14/18 15:00 12/14/18 15:00 12/14/18 15:00 Intake and Output: 12/14/18 12/14/18 06:59 18:59 Intake Total 480 Output Total 475 Balance 5 - Medications Medications: Current Medications Acetaminophen (Tylenol 325 Mg Supp) 325 mg [place] Q4 PRN PRN Reason: Fever >100.4 F Acetaminophen (Tylenol 650 Mg Supp) 650 mg [place] ONCE PRN PRN Reason: pre-transfusion Albuterol/Ipratropium (Duoneb 3 Mg/0.5 Mg (3 Ml) Ud) 3 ml INH RQ6 [facility] Last Admin: 12/14/18 13:24 Dose: 3 ml Docusate Sodium (Colace) 100 mg PO BID [facility] Last Admin: 12/14/18 09:43 Dose: 100 mg Enoxaparin Sodium (Lovenox) 50 mg [place] Q12 [facility] Last Admin: 12/14/18 09:44 Dose: 50 mg Hydromorphone HCl (Dilaudid) 0.5 mg IVP Q4H PRN PRN Reason: Pain, severe (8-10) Hydromorphone HCl (Dilaudid) 0.5 mg IVP Q2 PRN PRN Reason: Pain, moderate (4-7) Stop: 12/14/18 22:00 Last Admin: 12/14/18 15:23 Dose: 0.5 mg Lactic Acid (Lac-Hydrin 12% Lotion (225 G)) 0 gm EXT DAILY [facility] Last Admin: 12/14/18 09:45 Dose: 1 applic Pantoprazole Sodium (Protonix Ec Tab) 40 mg PO DAILY [facility] Last Admin: 12/14/18 09:43 Dose: 40 mg Potassium Chloride (K-Dur 20 Meq Er Tab) 20 meq PO DAILY [facility] Last Admin: 12/14/18 09:43 Dose: 20 meq Silver Sulfadiazine (Silvadene 1% 20 Gm) 8 ea TOP BID [facility] Last Admin: 12/14/18 09:44 Dose: Not Given Silver Sulfadiazine (Silvadene 1% 20 Gm) 0 ea TOP DAILY [facility] Last Admin: 12/14/18 09:42 Dose: 1 ml - Labs Labs: 12/13/18 07:52 12/14/18 14:50 PT 14.0 SECONDS (9.7-12.2) H 12/13/18 07:52 INR 1.3 12/13/18 07:52 APTT 35 SECONDS (21-34) H 12/13/18 07:52
--- NOTE | 2018-12-14 17:57 | CP.PCM.PN ---
Subjective - Date & Time of Evaluation Date of Evaluation: 12/14/18 Time of Evaluation: 11:00 - Subjective Subjective: Patient seen and examined Denies shortness of breath, denies cough Started on Lovenox for DVT Denies abdominal pain Objective - Vital Signs/Intake and Output Vital Signs (last 24 hours): Temp Pulse Resp BP Pulse Ox 97.8 F 98 H 20 94/63 L 100 12/14/18 15:00 12/14/18 15:00 12/14/18 15:00 12/14/18 15:00 12/14/18 15:00 Intake and Output: 12/14/18 12/14/18 06:59 18:59 Intake Total 480 Output Total 475 Balance 5 - Medications Medications: Current Medications Acetaminophen (Tylenol 325 Mg Supp) 325 mg [place] Q4 PRN PRN Reason: Fever >100.4 F Acetaminophen (Tylenol 650 Mg Supp) 650 mg [place] ONCE PRN PRN Reason: pre-transfusion Albuterol/Ipratropium (Duoneb 3 Mg/0.5 Mg (3 Ml) Ud) 3 ml INH RQ6 [facility] Last Admin: 12/14/18 13:24 Dose: 3 ml Docusate Sodium (Colace) 100 mg PO BID [facility] Last Admin: 12/14/18 17:25 Dose: 100 mg Enoxaparin Sodium (Lovenox) 50 mg SC Q12 [facility] Last Admin: 12/14/18 09:44 Dose: 50 mg Hydromorphone HCl (Dilaudid) 0.5 mg IVP Q4H PRN PRN Reason: Pain, severe (8-10) Hydromorphone HCl (Dilaudid) 0.5 mg IVP Q2 PRN PRN Reason: Pain, moderate (4-7) Stop: 12/14/18 22:00 Last Admin: 12/14/18 17:25 Dose: 0.5 mg Lactic Acid (Lac-Hydrin 12% Lotion (225 G)) 0 gm EXT DAILY [facility] Last Admin: 12/14/18 09:45 Dose: 1 applic Pantoprazole Sodium (Protonix Ec Tab) 40 mg PO DAILY [facility] Last Admin: 12/14/18 09:43 Dose: 40 mg Potassium Chloride (K-Dur 20 Meq Er Tab) 20 meq PO DAILY [facility] Last Admin: 12/14/18 09:43 Dose: 20 meq Silver Sulfadiazine (Silvadene 1% 20 Gm) 8 ea TOP BID [facility] Last Admin: 12/14/18 09:44 Dose: Not Given Silver Sulfadiazine (Silvadene 1% 20 Gm) 0 ea TOP DAILY [facility] Last Admin: 12/14/18 09:42 Dose: 1 ml - Labs Labs: 12/13/18 07:52 12/14/18 14:50 PT 14.0 SECONDS (9.7-12.2) H 12/13/18 07:52 INR 1.3 12/13/18 07:52 APTT 35 SECONDS (21-34) H 12/13/18 07:52 - Head Exam Head Exam: ATRAUMATIC, NORMOCEPHALIC - ENT Exam ENT Exam: Mucous Membranes Moist - Neck Exam Neck Exam: Normal Inspection - Respiratory Exam Respiratory Exam: Clear to Ausculation Bilateral - Cardiovascular Exam Cardiovascular Exam: REGULAR RHYTHM Assessment and Plan (1) COPD (chronic obstructive pulmonary disease) Assessment & Plan: Continue nebulizer treatment Continue Lovenox for DVT Follow-up CBC Physical therapy Status: Acute (2) Anemia Status: Acute (3) DVT (deep venous thrombosis) Status: Acute (4) Cellulitis Status: Acute (5) Hyponatremia Status: Acute (6) Acute pancreatitis Status: Acute
[2018-12-14] MEDS ORDERED: Sodium Chloride 0.9% 1,000 ML IV SCH (18:00)
--- NOTE | 2018-12-14 18:25 | PN ---
DATE: 12/14/2018 SUBJECTIVE: The patient is seen. The patient is doing better. She was eating her regular food, but still very resistant about switching out her intake of pain medications. She states she can do it by herself and the patient is still receiving 0.5 IV every 2 hours p.r.n. Nurse is reporting that she is asking it regularly, The patient states she has no problems, weaning herself off when she is discharged. PHYSICAL EXAMINATION: VITAL SIGNS: Temperature is 97.3, pulse 84, blood pressure 113/80, respirations 20, oxygen saturation 100%. REVIEW OF SYSTEMS: GENERAL: The patient is alert, oriented x3, seen in her room, eating a pie. SKIN: No diaphoresis. HEENT: No headache. No dizziness. RESPIRATORY: No dyspnea. CARDIOVASCULAR: No chest pain. GASTROINTESTINAL: The patient's appetite is improving. Abdominal pain is improving. She is eating regular food. EXTREMITIES: Moving extremities. MUSCULOSKELETAL: Weakness improving. NEUROLOGIC: Alert and oriented x3. GENITOURINARY: No urinary problems, incontinence. MENTAL STATUS EXAMINATION: Cachectic-looking female who looks alert, looks stated age, oriented x3. Mood is dysphoric. Affect is reactive. Speech is dazed. Thought process is coherent. Thought content, the patient is very hesitant to wean herself off of pain medication. The patient states she take Tylenol No. 4 and [place] at home. No psychosis, no suicidal or homicidal ideation. Attention and memory seem to be fair. Insight and judgment limited. Impulse control is fair at this time. IMPRESSION: History of recurrent depression, anxiety, opiate dependence, pancreatitis. PLAN AND RECOMMENDATIONS: The patient is seen. Meds reviewed. Continue present pain meds. Psych peck, she is stable for discharge once medically cleared. The patient is advised to slowly wean herself off IV Dilaudid, which she is very hesitant at this time. The patient can be discharged once cleared by PMD. Grant Adhikari MD [facility]
[2018-12-14 19:53] LABS: VENOUS BLOOD GAS BASE EXCESS 6.5 mmol/L (0.0-2.0); VENOUS BLOOD GAS PCO2 60 mmHg (40-60); VENOUS BLOOD GAS PO2 30 mm/Hg (30-55); VENOUS BLOOD PH 7.36 (7.32-7.43)
--- NOTE | 2018-12-14 20:58 | CP.PCM.PN ---
Subjective - Date & Time of Evaluation Date of Evaluation: 12/14/18 Time of Evaluation: 16:00 - Subjective Subjective: dictated Objective - Vital Signs/Intake and Output Vital Signs (last 24 hours): Temp Pulse Resp BP Pulse Ox 97.8 F 98 H 20 94/63 L 100 12/14/18 15:00 12/14/18 15:00 12/14/18 15:00 12/14/18 15:00 12/14/18 15:00 Intake and Output: 12/14/18 12/15/18 18:59 06:59 Intake Total 480 Output Total 475 Balance 5 - Medications Medications: Current Medications Acetaminophen (Tylenol 325 Mg Supp) 325 mg [place] Q4 PRN PRN Reason: Fever >100.4 F Acetaminophen (Tylenol 650 Mg Supp) 650 mg [place] ONCE PRN PRN Reason: pre-transfusion Albuterol/Ipratropium (Duoneb 3 Mg/0.5 Mg (3 Ml) Ud) 3 ml INH RQ6 [facility] Last Admin: 12/14/18 20:33 Dose: 3 ml Docusate Sodium (Colace) 100 mg PO BID [facility] Last Admin: 12/14/18 17:25 Dose: 100 mg Enoxaparin Sodium (Lovenox) 50 mg SC Q12 [facility] Last Admin: 12/14/18 09:44 Dose: 50 mg Hydromorphone HCl (Dilaudid) 0.5 mg IVP Q4H PRN PRN Reason: Pain, severe (8-10) Hydromorphone HCl (Dilaudid) 0.5 mg IVP Q2 PRN PRN Reason: Pain, moderate (4-7) Stop: 12/14/18 22:00 Last Admin: 12/14/18 19:26 Dose: 0.5 mg Lactic Acid (Lac-Hydrin 12% Lotion (225 G)) 0 gm EXT DAILY [facility] Last Admin: 12/14/18 09:45 Dose: 1 applic Pantoprazole Sodium (Protonix Ec Tab) 40 mg PO DAILY [facility] Last Admin: 12/14/18 09:43 Dose: 40 mg Potassium Chloride (K-Dur 20 Meq Er Tab) 20 meq PO DAILY [facility] Last Admin: 12/14/18 09:43 Dose: 20 meq Silver Sulfadiazine (Silvadene 1% 20 Gm) 8 ea TOP BID [facility] Last Admin: 12/14/18 19:00 Dose: Not Given Silver Sulfadiazine (Silvadene 1% 20 Gm) 0 ea TOP DAILY [facility] Last Admin: 12/14/18 09:42 Dose: 1 ml - Labs Labs: 12/13/18 07:52 12/14/18 14:50 PT 14.0 SECONDS (9.7-12.2) H 12/13/18 07:52 INR 1.3 12/13/18 07:52 APTT 35 SECONDS (21-34) H 12/13/18 07:52
--- NOTE | 2018-12-14 21:28 | CP.PCM.PN ---
Subjective - Date & Time of Evaluation Date of Evaluation: 12/14/18 Time of Evaluation: 07:00 - Subjective Subjective: dictated Objective - Vital Signs/Intake and Output Vital Signs (last 24 hours): Temp Pulse Resp BP Pulse Ox 97.8 F 98 H 20 94/63 L 100 12/14/18 15:00 12/14/18 15:00 12/14/18 15:00 12/14/18 15:00 12/14/18 15:00 Intake and Output: 12/14/18 12/15/18 18:59 06:59 Intake Total 480 Output Total 475 Balance 5 - Medications Medications: Current Medications Acetaminophen (Tylenol 325 Mg Supp) 325 mg SC Q4 PRN PRN Reason: Fever >100.4 F Acetaminophen (Tylenol 650 Mg Supp) 650 mg SC ONCE PRN PRN Reason: pre-transfusion Albuterol/Ipratropium (Duoneb 3 Mg/0.5 Mg (3 Ml) Ud) 3 ml INH RQ6 [facility] Last Admin: 12/14/18 20:33 Dose: 3 ml Docusate Sodium (Colace) 100 mg PO BID [facility] Last Admin: 12/14/18 17:25 Dose: 100 mg Enoxaparin Sodium (Lovenox) 50 mg SC Q12 [facility] Last Admin: 12/14/18 09:44 Dose: 50 mg Hydromorphone HCl (Dilaudid) 0.5 mg IVP Q4H PRN PRN Reason: Pain, severe (8-10) Hydromorphone HCl (Dilaudid) 0.5 mg IVP Q2 PRN PRN Reason: Pain, moderate (4-7) Stop: 12/14/18 22:00 Last Admin: 12/14/18 19:26 Dose: 0.5 mg Lactic Acid (Lac-Hydrin 12% Lotion (225 G)) 0 gm EXT DAILY [facility] Last Admin: 12/14/18 09:45 Dose: 1 applic Pantoprazole Sodium (Protonix Ec Tab) 40 mg PO DAILY [facility] Last Admin: 12/14/18 09:43 Dose: 40 mg Potassium Chloride (K-Dur 20 Meq Er Tab) 20 meq PO DAILY [facility] Last Admin: 12/14/18 09:43 Dose: 20 meq Silver Sulfadiazine (Silvadene 1% 20 Gm) 8 ea TOP BID [facility] Last Admin: 12/14/18 19:00 Dose: Not Given Silver Sulfadiazine (Silvadene 1% 20 Gm) 0 ea TOP DAILY [facility] Last Admin: 12/14/18 09:42 Dose: 1 ml - Labs Labs: 12/13/18 07:52 12/14/18 14:50 PT 14.0 SECONDS (9.7-12.2) H 12/13/18 07:52 INR 1.3 12/13/18 07:52 APTT 35 SECONDS (21-34) H 12/13/18 07:52
--- NOTE | 2018-12-14 23:59 | PN ---
DATE: 12/14/2018 INFECTIOUS DISEASE FOLLOWUP SUBJECTIVE: The patient was seen today. She still has some pain. She has been getting pain medicine, however, her Primaxin was discontinued. PHYSICAL EXAMINATION: VITAL SIGNS: She remains afebrile, T-max is 97.8. Pulse is 98, blood pressure is 94/63, respirations are 20. GENERAL: She appears pale, but she is alert and awake. HEENT: Head is atraumatic and normocephalic. NECK: Supple. LUNGS: Clear. HEART: S1 and S2, regular. ABDOMEN. She complains of upper abdominal pain and has some subcutaneous swelling. EXTREMITIES: Bilateral edema. There are scars of healing wounds on her legs, but they are coming along. LABORATORY DATA: White count is 7.7 yesterday. Hemoglobin is , hematocrit 34, platelet count is 258. Sodium is 134, potassium 3.8, chloride 89, CO2 is 41, and creatinine 0.4. MEDICATIONS: She is on Silvadene, K-Dur, Protonix, Lac-Hydrin, Dilaudid, Lovenox subcu every 12 hours, Colace, DuoNeb, Tylenol. ASSESSMENT: The patient had pancreatic hematoma and pancreatitis and is improving. She was also seen by the surgeon. She is tolerating food and is coming along at this time. She had hemorrhagic pancreatitis which has improved, but she still complains of pain. Ilana Dempsey MD
[2018-12-15] MEDS: HYDROmorphone 0.5 mg/0.5 ml ISec IVP PRN ×5 (01:25→14:46)
[2018-12-15] MEDS: Albuterol-Ipratrop 3 mg / 0.5 (3 ml) UD INH SCH ×3 (01:49→13:15)
[2018-12-15 07:21] LABS: HEMOGLOBIN 11.6 g/dL (11.0-16.0); MEAN CELL VOLUME 87.8 fL (81.0-99.0); MEAN CORPUSCULAR HEMOGLOBIN 28.1 pg (27.0-31.0); MEAN PLATELET VOLUME 8.6 fL (7.2-11.7); RBC 4.14 Mil/uL (3.80-5.20); RED CELL DISTRIBUTION WIDTH 17.9 % (11.5-14.5); WHITE BLOOD COUNT 6.4 K/uL (4.8-10.8)
[2018-12-15 08:25] LABS: ALB/GLOB RATIO 1.1 (1.0-2.1); ALBUMIN 2.6 g/dL (3.5-5.0); ALT/SGPT 23 U/L (9-52); AST/SGOT 39 U/L (14-36); BLOOD UREA NITROGEN 6 mg/dL (7-17); CALCIUM 7.9 mg/dl (8.6-10.4); GFR NON-AFRICAN AMERICAN > 60
[2018-12-15] MEDS: LIPASE/PROTEASE/AMYLASE 4,200 U ECC PO SCH ×3 (09:34→17:31)
[2018-12-15] MEDS: Pantoprazole 40 mg EC Tab PO SCH (09:34)
[2018-12-15] MEDS: Potassium Chloride 20 mEq ER Tab PO SCH (09:34)
[2018-12-15] MEDS: Enoxaparin 60 mg Syringe SC SCH (09:35)
[2018-12-15] MEDS: Silver Sulfadiazine 1% Cream (20 gm) TOP SCH ×2 (09:35)
[2018-12-15] MEDS: Ammonium Lactate 12% Lotion (225 g) EXT SCH (09:36)
--- NOTE | 2018-12-15 12:07 | CP.PCM.PN ---
Subjective - Date & Time of Evaluation Date of Evaluation: 12/15/18 Time of Evaluation: 12:05 - Subjective Subjective: Podiatry Progress Note for Dr. Cuba 58 y/o F patient seen at bedside with Dr. Cuba for bilateral leg wounds. Patient is AAO x 3 and NAD. Patient denies any pain in her LE wounds. Reports her legs feel fine and reports no pain. Patient denies any further pedal complaints at this time. Patient denies any overnight N/V/F/C/CP/SOB Objective - Vital Signs/Intake and Output Vital Signs (last 24 hours): Temp Pulse Resp BP Pulse Ox 98.3 F 101 H 20 101/67 100 12/15/18 07:36 12/15/18 07:36 12/15/18 07:36 12/15/18 07:36 12/15/18 07:36 Intake and Output: 12/15/18 12/15/18 06:59 18:59 Intake Total 680 Output Total 2200 Balance -1520 - Medications Medications: Current Medications Acetaminophen (Tylenol 325 Mg Supp) 325 mg [place] Q4 PRN PRN Reason: Fever >100.4 F Acetaminophen (Tylenol 325mg Tab) 650 mg PO Q6 PRN PRN Reason: Pain, Mild (1-3) Albuterol/Ipratropium (Duoneb 3 Mg/0.5 Mg (3 Ml) Ud) 3 ml INH RQ6 [facility] Last Admin: 12/15/18 07:20 Dose: 3 ml Docusate Sodium (Colace) 100 mg PO BID [facility] Last Admin: 12/15/18 09:34 Dose: 100 mg Enoxaparin Sodium (Lovenox) 50 mg SC Q12 [facility] Last Admin: 12/15/18 09:35 Dose: 50 mg Hydromorphone HCl (Dilaudid) 0.5 mg IVP Q3 PRN PRN Reason: Pain, severe (8-10) Last Admin: 12/15/18 11:45 Dose: 0.5 mg Lactic Acid (Lac-Hydrin 12% Lotion (225 G)) 0 gm EXT DAILY [facility] Last Admin: 12/15/18 09:36 Dose: 1 applic Pantoprazole Sodium (Protonix Ec Tab) 40 mg PO DAILY [facility] Last Admin: 12/15/18 09:34 Dose: 40 mg Potassium Chloride (K-Dur 20 Meq Er Tab) 20 meq PO DAILY [facility] Last Admin: 12/15/18 09:34 Dose: 20 meq Silver Sulfadiazine (Silvadene 1% 20 Gm) 8 ea TOP BID [facility] Last Admin: 12/15/18 09:35 Dose: Not Given Silver Sulfadiazine (Silvadene 1% 20 Gm) 0 ea TOP DAILY [facility] Last Admin: 12/15/18 09:35 Dose: 1 ml - Labs Labs: 12/15/18 07:15 12/15/18 07:15 PT 14.0 SECONDS (9.7-12.2) H 12/13/18 07:52 INR 1.3 12/13/18 07:52 APTT 35 SECONDS (21-34) H 12/13/18 07:52 - Constitutional Appears: Well, Non-toxic, No Acute Distress - Head Exam Head Exam: ATRAUMATIC, NORMOCEPHALIC - Extremities Exam Additional comments: LE focused exam: Vasc: DP/PT pulses fully palpable 2/4 b/l. Skin temperature warm to warm from proximal to distal. Cap refill < 3 seconds to all digits b/l. Minimal edema noted to b/l legs. Neuro: Epicritic and protective sensation grossly intact b/l. Derm: Multiple superficial healed ulcerations noted to b/l legs. No drainage, no malodor, no other clinical signs of infection. MSK: No Pain on palpation to b/l legs. No gross deformities noted - Neurological Exam Neurological Exam: Alert, Awake, Oriented x3 - Psychiatric Exam Psychiatric exam: Normal Affect, Normal Mood Assessment and Plan - Assessment and Plan (Free Text) Assessment: 58 y/o F patient seen at bedside for bilateral leg wounds Plan: Patient seen and evaluated Plan discussed with Dr. Cuba Charts, labs and vitals reviewed; Afebrile, absent leukocytosis Left leg wound cx: Enterococcous Faecalis B/l legs - Applied ammonium lactate C/W ammonium lactate 12% BID for dryness No plan for surgical intervention at this time Stable from podiatry standpoint Podiatry to sign off on this patient at this time; please re-consult if needed
[2018-12-15] MEDS ORDERED: POLYETHYLENE GLYCOL 3350 17 GM/Dose PACKET PO STA (12:52)
[2018-12-15] MEDS ORDERED: Magnesium Hydroxide Susp 30 ml UD PO ONE (13:00)
--- NOTE | 2018-12-15 13:16 | CP.PCM.PN ---
Subjective - Date & Time of Evaluation Date of Evaluation: 12/15/18 Time of Evaluation: 13:00 - Subjective Subjective: patient seen today , states feels ok, still c/o abdominal pain, improved with medications , denies any chest pain, sob, dizziness , N/V/D vss and labs reviewed - stable hgb stable - 11.6 Objective - Vital Signs/Intake and Output Vital Signs (last 24 hours): Temp Pulse Resp BP Pulse Ox 98.3 F 101 H 20 101/67 100 12/15/18 07:36 12/15/18 07:36 12/15/18 07:36 12/15/18 07:36 12/15/18 07:36 Intake and Output: 12/15/18 12/15/18 06:59 18:59 Intake Total 680 Output Total 2200 Balance -1520 - Medications Medications: Current Medications Acetaminophen (Tylenol 325 Mg Supp) 325 mg [place] Q4 PRN PRN Reason: Fever >100.4 F Acetaminophen (Tylenol 325mg Tab) 650 mg PO Q6 PRN PRN Reason: Pain, Mild (1-3) Albuterol/Ipratropium (Duoneb 3 Mg/0.5 Mg (3 Ml) Ud) 3 ml INH RQ6 [facility] Last Admin: 12/15/18 07:20 Dose: 3 ml Docusate Sodium (Colace) 100 mg PO BID [facility] Last Admin: 12/15/18 09:34 Dose: 100 mg Enoxaparin Sodium (Lovenox) 50 mg SC Q12 [facility] Last Admin: 12/15/18 09:35 Dose: 50 mg Hydromorphone HCl (Dilaudid) 0.5 mg IVP Q3 PRN PRN Reason: Pain, severe (8-10) Last Admin: 12/15/18 11:45 Dose: 0.5 mg Lactic Acid (Lac-Hydrin 12% Lotion (225 G)) 0 gm EXT DAILY [facility] Last Admin: 12/15/18 09:36 Dose: 1 applic Pantoprazole Sodium (Protonix Ec Tab) 40 mg PO DAILY [facility] Last Admin: 12/15/18 09:34 Dose: 40 mg Potassium Chloride (K-Dur 20 Meq Er Tab) 20 meq PO DAILY [facility] Last Admin: 12/15/18 09:34 Dose: 20 meq Silver Sulfadiazine (Silvadene 1% 20 Gm) 8 ea TOP BID [facility] Last Admin: 12/15/18 09:35 Dose: Not Given Silver Sulfadiazine (Silvadene 1% 20 Gm) 0 ea TOP DAILY [facility] Last Admin: 12/15/18 09:35 Dose: 1 ml - Labs Labs: 12/15/18 07:15 12/15/18 07:15 PT 14.0 SECONDS (9.7-12.2) H 12/13/18 07:52 INR 1.3 12/13/18 07:52 APTT 35 SECONDS (21-34) H 12/13/18 07:52 - Constitutional Appears: Well, No Acute Distress - Respiratory Exam Respiratory Exam: Decreased Breath Sounds, NORMAL BREATHING PATTERN - Cardiovascular Exam Cardiovascular Exam: REGULAR RHYTHM, +S1, +S2 - GI/Abdominal Exam GI & Abdominal Exam: Soft, Normal Bowel Sounds - Neurological Exam Neurological Exam: Alert, Awake, Oriented x3 Assessment and Plan - Assessment and Plan (Free Text) Assessment: A/P 58 yr old female with pmhx of COPD, Depression,chroninc , Pancreatitis admitted with DVT and lower extremity cellulitis during hospital admission patient required blood transfusion for acute blood loss anemia and hgb stable now 11.7 for DVT of LE patient has IVC filter and we will continue with small dose of eliquis patient clinically improved and stable for discharge D/w Dr. Ramirez, stable for discharge hme today and f/u with Dr. Baker office in 1 week pt has home oxygen discharge plan discussed with patient who understands and agrees with plan, P atient instructed to returs to ED if symptoms returns Home care arranged by CM for home PT, HOME CARE and wound care patient will be discharge home with 5 days of tylenol #4 for chronic pain an d abdominal pain for pain control until see has a appointment with her Pain management MD all other RX given to patient
--- NOTE | 2018-12-15 15:47 | CP.PCM.PN ---
Subjective - Date & Time of Evaluation Date of Evaluation: 12/15/18 Time of Evaluation: 11:00 - Subjective Subjective: Patient seen and examined Complaining of constipation Denies shortness of breath Denies abdominal pain Afebrile Objective - Vital Signs/Intake and Output Vital Signs (last 24 hours): Temp Pulse Resp BP Pulse Ox 98.3 F 101 H 20 101/67 100 12/15/18 07:36 12/15/18 07:36 12/15/18 07:36 12/15/18 07:36 12/15/18 07:36 Intake and Output: 12/15/18 12/15/18 06:59 18:59 Intake Total 680 480 Output Total 2200 1000 Balance -1520 -520 - Medications Medications: Current Medications Acetaminophen (Tylenol 325 Mg Supp) 325 mg [place] Q4 PRN PRN Reason: Fever >100.4 F Acetaminophen (Tylenol 325mg Tab) 650 mg PO Q6 PRN PRN Reason: Pain, Mild (1-3) Albuterol/Ipratropium (Duoneb 3 Mg/0.5 Mg (3 Ml) Ud) 3 ml INH RQ6 [facility] Last Admin: 12/15/18 13:15 Dose: 3 ml Docusate Sodium (Colace) 100 mg PO BID [facility] Last Admin: 12/15/18 09:34 Dose: 100 mg Enoxaparin Sodium (Lovenox) 50 mg SC Q12 [facility] Last Admin: 12/15/18 09:35 Dose: 50 mg Hydromorphone HCl (Dilaudid) 0.5 mg IVP Q3 PRN PRN Reason: Pain, severe (8-10) Last Admin: 12/15/18 14:46 Dose: 0.5 mg Lactic Acid (Lac-Hydrin 12% Lotion (225 G)) 0 gm EXT DAILY [facility] Last Admin: 12/15/18 09:36 Dose: 1 applic Pantoprazole Sodium (Protonix Ec Tab) 40 mg PO DAILY [facility] Last Admin: 12/15/18 09:34 Dose: 40 mg Potassium Chloride (K-Dur 20 Meq Er Tab) 20 meq PO DAILY [facility] Last Admin: 12/15/18 09:34 Dose: 20 meq Silver Sulfadiazine (Silvadene 1% 20 Gm) 8 ea TOP BID [facility] Last Admin: 12/15/18 09:35 Dose: Not Given Silver Sulfadiazine (Silvadene 1% 20 Gm) 0 ea TOP DAILY [facility] Last Admin: 12/15/18 09:35 Dose: 1 ml - Labs Labs: 12/15/18 07:15 12/15/18 07:15 PT 14.0 SECONDS (9.7-12.2) H 12/13/18 07:52 INR 1.3 12/13/18 07:52 APTT 35 SECONDS (21-34) H 12/13/18 07:52 - Head Exam Head Exam: ATRAUMATIC, NORMOCEPHALIC - ENT Exam ENT Exam: Mucous Membranes Moist - Respiratory Exam Respiratory Exam: Clear to Ausculation Bilateral - Cardiovascular Exam Cardiovascular Exam: REGULAR RHYTHM (25) - GI/Abdominal Exam GI & Abdominal Exam: Soft, Normal Bowel Sounds (Continue paracentral emergency) Assessment and Plan (1) COPD (chronic obstructive pulmonary disease) Assessment & Plan: Continue nebulizer treatment Continue Lovenox for DVT History of IVC filter Monitor CBC Status: Acute (2) Anemia Status: Acute (3) DVT (deep venous thrombosis) Status: Acute (4) Cellulitis Status: Acute (5) Hyponatremia Status: Acute (6) Acute pancreatitis Status: Acute
[2018-12-15 16:15] VITALS: BP 107/73; PULSE 97; TEMP 98.1; O2SAT 96
--- NOTE | 2018-12-15 20:29 | PN ---
DATE: 12/15/2018 SUBJECTIVE: The patient is seen. The patient is for discharge today. She states that she will go home without Dilaudid and transition herself to Tylenol No. 4, Berry. The patient still was upset with the nurses who were trying to stretch her Dilaudid to every 3 hours. PHYSICAL EXAMINATION: VITAL SIGNS: Temperature is 98.3, pulse 101, blood pressure 101/67, respirations 20, oxygen saturation is 100%. REVIEW OF SYSTEMS: GENERAL: Alert and oriented x3. The patient is anxious to be discharged, doing much better. She states the pain is almost gone. SKIN: No diaphoresis. HEENT: No headache. No dizziness. NECK: Supple. RESPIRATORY: No dyspnea. CARDIOVASCULAR: No chest pain. GASTROINTESTINAL: The patient is tolerating solid foods. Abdominal pain is bearable. EXTREMITIES: The patient's gait is unsteady but she has enough help at home. MUSCULOSKELETAL: Weakness improving. NEUROLOGIC: Alert and oriented x3. GENITOURINARY: No urinary problems, no dysuria. MENTAL STATUS EXAMINATION: Cachectic-looking female, who looks stated age. Mood is much brighter. Affect is reactive. Oriented x3. Speech spontaneous. Thought process coherent. Thought content, the patient is anxious to be discharged. No psychosis. No suicidal or homicidal ideation. Attention and memory seem to be fair. Insight and judgment limited. Impulse control is fair at this time. IMPRESSION: History of recurrent depression, anxiety, pancreatitis, opiate dependence. PLAN AND RECOMMENDATIONS: The patient seen, meds reviewed. The patient is psychiatrically stable for discharge today. The patient advised not to take any psychiatric medication, any antidepressant, or anxiolytic for now, to continue her pain meds as ordered and to follow up with her pain management doctor. Grant Adhikari MD
--- NOTE | 2018-12-15 21:15 | PN ---
DATE: 12/15/2018 LOCATION: 357, bed A. SUBJECTIVE: This is a 58-year-old female seen and examined in rounds without any significant clinical changes or active bleeding, complaining of lower extremities as well as sacral ulceration, pain on and off with less appetite with loss of appetite and poor oral intake recently. The entire chart is reviewed including but not limited to the most recent lab and radiology study results, current and previous medication list. LABORATORY DATA: Today's lab showed normal CBC and abnormal ABGs as per yesterday with CO2 content of 41, low BUN and decreased creatinine with calcium 7.9, AST 39, total protein 5, albumin 2.6. PHYSICAL EXAMINATION: GENERAL: A 58-year-old female. VITAL SIGNS: Afebrile with pulse of 96, respiratory rate 20-22, blood pressure of 106/64. HEENT: Showed pale dry oral mucoid membrane. Nonicteric sclerae. LUNGS: A few scattered crepitations. Decreased air entry at bases. HEART: Positive S1 and S2. ABDOMEN: Soft with mild generalized tenderness. No mass or organomegaly. No rebound tenderness or guarding. EXTREMITIES: Without significant edema, clubbing, or cyanosis. SKIN: The patient is status post insertion recently. NEUROLOGIC: No reported new neurological deficits, sensory or motor. IMPRESSION: 1. Recurrent pancreatitis, necrotic, on top of chronic pancreatitis, with evidence of acute pancreatitis. 2. Electrolyte imbalance, most likely secondary to above. 3. Malnutrition with hypoalbuminemia and hypoproteinemia. 4. Re-exacerbation of peptic ulcer disease. 5. Lower extremities bilateral ulcerated wounds. 6. Elevated CEA and CA-125 with possible lower gastrointestinal tract cancer. SUGGESTIONS: 1. Continue current management. 2. The patient need MRI of the abdomen and pelvis. 3. Further recommendation to follow. Yin Patel MD
--- NOTE | 2018-12-15 23:08 | CP.PCM.DIS ---
Provider - Provider Date of Admission: 11/30/18 19:03 Attending physician: Connor Baker MD Consults: 12/01/18 14:48 Inpatient [employer] Core Measures Referral Routine Comment: Physician Instructions: Reason For Exam: copd 12/01/18 18:19 Physician Consult Routine Comment: Consulting Provider: Romie Lucero Consulting Physician: Romie Lucero Reason for Consult: COPD/ wheezing 12/01/18 19:30 Cardiology Consult Routine Comment: Consulting Provider: Federico Rea Consulting Physician: Federico Rea Reason for Consult: dyspnea, possible PE 12/02/18 03:59 Wound Care [Nursing Referral for Wound Care] Routine Comment: Physician Instructions: Reason For Exam: BLE cellulitis/open wounds 12/03/18 13:15 Podiatry Consult Routine Comment: Consulting Provider: Nelson Cuba Consulting Physician: Nelson Cuba Reason for Consult: leg wound 12/03/18 17:30 Gastroenterology Consult Routine Comment: Consulting Provider: iYn Olson Consulting Physician: Yin Olson Reason for Consult: abdominal pain 12/03/18 18:35 Physician Consult Routine Comment: Consulting Provider: Grant Guevara Consulting Physician: Grant Guevara Reason for Consult: depression and anxiety 12/05/18 09:14 Infectious Disease Consult Routine Comment: Consulting Provider: Ilana Dempsey Consulting Physician: Ilana Dempsey Reason for Consult: b/l leg ulcerations 12/05/18 09:36 General Surgery Consult Stat Comment: Consulting Provider: José Manuel Gamboa Consulting Physician: José Manuel Gamboa Reason for Consult: pancreatic necrosis 12/07/18 11:12 Wound Care [Nursing Referral for Wound Care] Routine Comment: Physician Instructions: Reason For Exam: please assess sacral region 12/10/18 22:58 Nursing Referral for Wound Care Routine Comment: Physician Instructions: Reason For Exam: NEW TRANSFER TO ICU WITH SACRAL DECUBITI 12/12/18 18:53 Vascular Surgery Routine Comment: Consulting Provider: Travis Small Jr. Physician Instructions: Reason For Exam: ivc filter Time Spent in preparation of Discharge (in minutes): 30 Hospital Course - Lab Results Lab Results: Micro Results 12/10/18 17:33 Nose MRSA Culture - Final MRSA NOT DETECTED 12/05/18 09:32 Blood-Venous Blood Culture - Final NO GROWTH AFTER 5 DAYS 12/05/18 09:32 Blood-Venous Gram Stain - Final TEST NOT PERFORMED 12/05/18 09:32 Blood-Venous Blood Culture - Final NO GROWTH AFTER 5 DAYS 12/05/18 09:32 Blood-Venous Gram Stain - Final TEST NOT PERFORMED 12/05/18 12:15 Naris MRSA Culture (Admit) - Final MRSA NOT DETECTED 12/05/18 10:01 Urine,Catheterized Urine Culture - Final No Growth (<1,000 CFU/ML) 12/01/18 09:57 Blood-Venous Blood Culture - Final NO GROWTH AFTER 5 DAYS 12/01/18 09:57 Blood-Venous Gram Stain - Final TEST NOT PERFORMED 12/04/18 22:30 Naris MRSA Culture (Admit) - Final MRSA NOT DETECTED 12/01/18 00:32 Blood-Venous Blood Culture - Final NO GROWTH AFTER 5 DAYS 12/01/18 00:32 Blood-Venous Gram Stain - Final TEST NOT PERFORMED 12/02/18 07:07 Leg - Left Gram Stain - Final 12/02/18 07:07 Leg - Left Wound Culture - Final Enterococcus Faecalis 12/02/18 01:13 Naris MRSA Culture - Final MRSA NOT DETECTED Most Recent Lab Values WBC 6.4 K/uL (4.8-10.8) 12/15/18 07:15 RBC 4.14 Mil/uL (3.80-5.20) 12/15/18 07:15 Hgb 11.6 g/dL (11.0-16.0) 12/15/18 07:15 Hct 36.4 % (34.0-47.0) 12/15/18 07:15 MCV 87.8 fL (81.0-99.0) 12/15/18 07:15 MCH 28.1 pg (27.0-31.0) 12/15/18 07:15 MCHC 32.0 g/dL (33.0-37.0) L 12/15/18 07:15 RDW 17.9 % (11.5-14.5) H 12/15/18 07:15 Plt Count 281 K/uL (130-400) 12/15/18 07:15 MPV 8.6 fL (7.2-11.7) 12/15/18 07:15 Neut % (Auto) 79.0 % (50.0-75.0) H 12/13/18 07:52 Lymph % (Auto) 8.9 % (20.0-40.0) L 12/13/18 07:52 [place] % (Auto) 8.7 % (0.0-10.0) 12/13/18 07:52 Eos % (Auto) 2.5 % (0.0-4.0) 12/13/18 07:52 Baso % (Auto) 0.9 % (0.0-2.0) 12/13/18 07:52 Neut # (Auto) 6.0 K/uL (1.8-7.0) 12/13/18 07:52 Lymph # (Auto) 0.7 K/uL (1.0-4.3) L 12/13/18 07:52 Barrow # (Auto) 0.7 K/uL (0.0-0.8) 12/13/18 07:52 Eos # (Auto) 0.2 K/uL (0.0-0.7) 12/13/18 07:52 Baso # (Auto) 0.1 K/uL (0.0-0.2) 12/13/18 07:52 Neutrophils % (Manual) 83 % (50-75) H 12/13/18 07:52 Lymphocytes % (Manual) 5 % (20-40) L 12/13/18 07:52 Reactive Lymphs % 1 % (0-0) H 12/13/18 07:52 Monocytes % (Manual) 7 % (0-10) 12/13/18 07:52 Eosinophils % (Manual) 4 % (0-4) 12/13/18 07:52 Toxic Granulation Present 12/13/18 07:52 Platelet Estimate Normal (NORMAL) 12/13/18 07:52 Large Platelets Present 12/13/18 07:52 Giant Platelets Present 12/13/18 07:52 Polychromasia Slight 12/13/18 07:52 Hypochromasia (manual) Moderate 12/13/18 07:52 Poikilocytosis (manual Slight 12/09/18 06:08 Anisocytosis (manual) Moderate 12/13/18 07:52 Microcytosis (manual) Slight 12/09/18 06:08 Macrocytosis (manual) Slight 12/07/18 05:52 Target Cells Slight 12/08/18 08:03 Tear Drop Cells Slight 12/05/18 07:16 Ovalocytes Slight 12/06/18 11:24 Stomatocytes Slight 12/07/18 05:52 Albaro Cells Slight 12/07/18 05:52 PT 14.0 SECONDS (9.7-12.2) H 12/13/18 07:52 INR 1.3 12/13/18 07:52 APTT 35 SECONDS (21-34) H 12/13/18 07:52 pO2 30 mm/Hg (30-55) 12/14/18 19:50 VBG pH 7.36 (7.32-7.43) 12/14/18 19:50 VBG pCO2 60 mmHg (40-60) 12/14/18 19:50 VBG HCO3 28.8 mmol/L 12/14/18 19:50 VBG Total CO2 35.7 mmol/L (22-28) H 12/14/18 19:50 VBG O2 Sat (Calc) 60.7 % (40-65) 12/14/18 19:50 VBG Base Excess 6.5 mmol/L (0.0-2.0) H 12/14/18 19:50 VBG Potassium 2.8 mmol/L (3.6-5.2) L 12/14/18 19:50 Sodium 142.0 mmol/l (132-148) 12/14/18 19:50 Chloride 107.0 mmol/L (98-107) 12/14/18 19:50 Glucose 68 mg/dl (65-105) 12/14/18 19:50 Lactate 0.9 mmol/L (0.7-2.1) 12/14/18 19:50 Sodium 133 mmol/L (132-148) 12/15/18 07:15 Potassium 3.9 mmol/L (3.6-5.2) 12/15/18 07:15 Chloride 91 mmol/L (98-107) L 12/15/18 07:15 Carbon Dioxide 41 mmol/L (22-30) H* 12/15/18 07:15 Anion Gap 5 (10-20) L 12/15/18 07:15 BUN 6 mg/dL (7-17) L 12/15/18 07:15 Creatinine 0.5 mg/dL (0.7-1.2) L 12/15/18 07:15 Est GFR ( Amer) > 60 12/15/18 07:15 Est GFR (Non-Af Amer) > 60 12/15/18 07:15 POC Glucose (mg/dL) 88 mg/dL (65-110) 12/08/18 06:23 Random Glucose 84 mg/dL (65-105) 12/15/18 07:15 Serum Osmolality 273 mosm/kg (272-300) 12/05/18 09:18 Lactic Acid 0.8 mmol/L (0.7-2.1) 12/06/18 05:55 Calcium 7.9 mg/dl (8.6-10.4) L 12/15/18 07:15 Phosphorus 3.3 mg/dL (2.5-4.5) 12/15/18 07:15 Magnesium 1.6 mg/dL (1.6-2.3) 12/15/18 07:15 Total Bilirubin 1.1 mg/dL (0.2-1.3) 12/15/18 07:15 AST 39 U/L (14-36) H 12/15/18 07:15 ALT 23 U/L (9-52) 12/15/18 07:15 Alkaline Phosphatase 75 U/L (38-126) 12/15/18 07:15 Total Protein 5.0 g/dL (6.3-8.3) L 12/15/18 07:15 Albumin 2.6 g/dL (3.5-5.0) L 12/15/18 07:15 Globulin 2.3 gm/dL (2.2-3.9) 12/15/18 07:15 Albumin/Globulin Ratio 1.1 (1.0-2.1) 12/15/18 07:15 Triglycerides 92 mg/dL (0-149) D 12/05/18 09:18 Cholesterol 96 mg/dL (0-199) 12/05/18 09:18 LDL Cholesterol Direct 55 mg/dL (0-129) 12/05/18 09:18 HDL Cholesterol 37 mg/dL (30-70) 12/05/18 09:18 Amylase 102 U/L (30-110) 12/12/18 11:33 Lipase 323 U/L (23-300) H 12/12/18 11:33 Carcinoembryonic Ag 9.7 ng/mL (0-3.0) H 12/05/18 07:16 CA 19-9 Antigen 3.4 U/mL (0-37) 12/05/18 07:16 CA 125 Antigen 167 U/mL (0-35) H 12/05/18 07:16 Cortisol AM Sample 23.3 ug/dL (4.46-22.7) H 12/05/18 09:18 Venous Blood Potassium 2.8 mmol/L (3.6-5.2) L 12/14/18 19:50 Urine Osmolality 652 mosm/kg (300-1000) 12/05/18 09:45 Ur Random Sodium 152 mmol/L 12/05/18 09:45 Ur Random Potassium 3.8 mmol/L 11/30/18 23:48 Urine Chloride 29 mmol/L (32-290) L 11/30/18 23:48 Blood Type A POSITIVE 12/05/18 09:18 Antibody Screen Negative 12/05/18 09:18 Discharge Exam - Head Exam Head Exam: ATRAUMATIC, NORMOCEPHALIC Discharge Plan - Discharge Medications Prescriptions: Sennosides/Docusate Sodium [Colace 2-in-1 Tablet] 1 each PO DAILY #30 tablet Albuterol/Ipratropium [Duoneb 3 mg/0.5 mg (3 ml) UD] 3 ml INH RQ6 30 Days neb Apixaban [Eliquis] 2.5 mg PO BID #60 tablet Potassium Chloride [K-Dur 20 mEq ER Tab] 20 meq PO DAILY #30 tab Ammonium Lactate 12% [Lac-Hydrin 12% Lotion (225 g)] 1 % EXT DAILY #1 bottle Famotidine [Pepcid] 20 mg PO BID #60 tab Acetaminophen with Codeine [Tylenol with Codeine #4 Tablet] 1 each PO Q4 PRN #20 tablet PRN Reason: Pain, Moderate (4-7) Zenpep 15,000 Units Capsule 1 tab PO TIDPC #90 - Follow Up Plan Condition: STABLE Disposition: HOME/ ROUTINE Instructions: Apixaban, Hyponatremia (DC), Potassium Chloride, Cellulitis (DC) Additional Instructions: Please f/u with Dr. Baker office in 1 week( needs blood work) Please use home oxygen as needed please continue medication as per med. rec. Please f/u with pain management Please call Dr. Baker if you see any blood in the stool Referrals: Romie Lucero MD [Staff Provider] - Connor Baker MD [Staff Provider] - Travis Small Jr., MD [Staff Provider] - Nelson Cuba DPM [Staff Provider] - Ilana Dempsey MD [Staff Provider] -
--- NOTE | 2018-12-16 07:36 | DS ---
DATE: 12/15/2018 DISCHARGE DIAGNOSES: 1. Acute pancreatitis. 2. Deep venous thrombosis of lower extremities. 3. Hemorrhagic pancreatitis. 4. Dehydration. 5. Chronic obstructive pulmonary disease. HISTORY OF PRESENT ILLNESS: This is a 58-year-old female, well known to me with a history of chronic heavy smoker, who came in because of cough and shortness of breath. She was also having bilateral lower extremity wounds and was found to have deep venous thrombosis of lower extremity, and the patient was on anticoagulants. While she was on anticoagulant, she started bleeding in the pancreas, and the patient was also given blood transfusion, anticoagulants, , and the patient did well. After her recovery, the patient underwent inferior vena cava filter placement, and the patient is doing well. She is afebrile. She is for discharge. PHYSICAL EXAMINATION: LUNGS: Decreased air entry. Positive rhonchi. CARDIOVASCULAR SYSTEM: S1 and S2, regular. ABDOMEN: Soft. ASSESSMENT: As above. PLAN: Discharge the patient. Monitor the patient. Connor Baker MD
== END 2018-12-15 19:32 | disposition home or self-care (01) | DRG 299 ==
LOC: C.ER 16:10 → C.9E 19:03 → C.5S 12-01 09:56 → C.9I 12-01 20:35 → C.5S 12-04 22:00 → C.9I 12-05 09:51 → C.3T 12-10 16:32
PROVIDERS: ADMIT Internal Medicine; ATTEND Internal Medicine
PROC: 5A09557 Assistance with Respiratory Ventilation, Greater than 96 Consecutive Hours, Continuous Positive Airway Pressure (ICD-10-PCS; principal; 2018-12-05)
PROC: 30233K1 Transfusion of Nonautologous Frozen Plasma into Peripheral Vein, Percutaneous Approach (ICD-10-PCS; 2018-12-05)
PROC: 30233N1 Transfusion of Nonautologous Red Blood Cells into Peripheral Vein, Percutaneous Approach (ICD-10-PCS; 2018-12-05)
DX: I82.411 Acute embolism and thrombosis of right femoral vein (principal); K85.91 Acute pancreatitis with uninfected necrosis, unspecified; L97.829 Non-pressure chronic ulcer of other part of left lower leg with unspecified severity; L03.116 Cellulitis of left lower limb; L03.115 Cellulitis of right lower limb; J18.9 Pneumonia, unspecified organism; I50.33 Acute on chronic diastolic (congestive) heart failure; R57.1 Hypovolemic shock; K66.1 Hemoperitoneum; E43 Unspecified severe protein-calorie malnutrition; L97.819 Non-pressure chronic ulcer of other part of right lower leg with unspecified severity; E87.1 Hypo-osmolality and hyponatremia; D62 Acute posthemorrhagic anemia; E87.3 Alkalosis; E87.2 Acidosis; J98.11 Atelectasis; R18.8 Other ascites; K86.3 Pseudocyst of pancreas; F33.9 Major depressive disorder, recurrent, unspecified; K86.1 Other chronic pancreatitis; J43.9 Emphysema, unspecified; D63.8 Anemia in other chronic diseases classified elsewhere; E86.0 Dehydration; E87.6 Hypokalemia; I27.21 Secondary pulmonary arterial hypertension; I80.8 Phlebitis and thrombophlebitis of other sites; R06.03 Acute respiratory distress; K27.9 Peptic ulcer, site unspecified, unspecified as acute or chronic, without hemorrhage or perforation; E77.8 Other disorders of glycoprotein metabolism; K86.89 Other specified diseases of pancreas; K59.00 Constipation, unspecified; N18.9 Chronic kidney disease, unspecified; K21.0 Gastro-esophageal reflux disease with esophagitis; E83.51 Hypocalcemia; E83.42 Hypomagnesemia; G89.29 Other chronic pain; F41.8 Other specified anxiety disorders; F17.210 Nicotine dependence, cigarettes, uncomplicated; Z53.8 Procedure and treatment not carried out for other reasons; B95.2 Enterococcus as the cause of diseases classified elsewhere; Z79.01 Long term (current) use of anticoagulants; Z87.01 Personal history of pneumonia (recurrent); Z99.81 Dependence on supplemental oxygen; Z90.49 Acquired absence of other specified parts of digestive tract; Z82.49 Family history of ischemic heart disease and other diseases of the circulatory system

== ENCOUNTER 2018-12-17 14:01 | Inpatient (IN) | payer MEDICARE ==
[2018-12-17 14:02] VITALS: BMI 13.7
[2018-12-17 15:24] LABS: BASO % 0.5 % (0.0-2.0); EOS % 0.1 % (0.0-4.0); HEMOGLOBIN 12.6 g/dL (11.0-16.0); LYMPH # 0.6 K/uL (1.0-4.3); LYMPH % 7.1 % (20.0-40.0); MEAN CELL VOLUME 87.2 fL (81.0-99.0); MEAN CORPUSCULAR HEMOGLOBIN 27.2 pg (27.0-31.0); MEAN CORPUSCULAR HGB CONC 31.2 g/dL (33.0-37.0); MEAN PLATELET VOLUME 8.4 fL (7.2-11.7); MONO # 0.5 K/uL (0.0-0.8); MONO % 6.1 % (0.0-10.0); NEUT # 7.3 K/uL (1.8-7.0); NEUT % 86.2 % (50.0-75.0); PLATELET COUNT 351 K/uL (130-400); RBC 4.62 Mil/uL (3.80-5.20); RED CELL DISTRIBUTION WIDTH 17.6 % (11.5-14.5); WHITE BLOOD COUNT 8.5 K/uL (4.8-10.8)
[2018-12-17 15:25] LABS: ABG ALLEN TEST POS; ARTERIAL BLOOD GAS HCO3 30.9 mmol/L (21-28); ARTERIAL BLOOD GAS O2 SAT 93.8 % (95-98); ARTERIAL BLOOD GAS PCO2 49 mm/Hg (35-45); ARTERIAL BLOOD GAS PH 7.44 (7.35-7.45); ARTERIAL BLOOD GAS PO2 60 mm/Hg (80-100); ARTERIAL BLOOD GAS TCO2 34.8 mmol/L (22-28)
[2018-12-17 15:32] LABS: INR 1.2; PROTHROMBIN TIME 13.3 SECONDS (9.7-12.2)
[2018-12-17 15:36] LABS: ALB/GLOB RATIO 1.1 (1.0-2.1); ALT/SGPT 25 U/L (9-52); AST/SGOT 45 U/L (14-36); BLOOD UREA NITROGEN 7 mg/dL (7-17); CALCIUM 8.4 mg/dl (8.6-10.4); GFR NON-AFRICAN AMERICAN > 60
--- NOTE | 2018-12-17 15:39 | RAD ---
HISTORY: SOB COMPARISON: Chest x-ray performed 12/06/18 and CTA chest performed 12/01/18 TECHNIQUE: Chest, one view. FINDINGS: LUNGS: Hazy/patchy right lower lobe infiltrate. Please note that chest x-ray has limited sensitivity for the detection of pulmonary masses. PLEURA: Small bilateral pleural effusions. No definite pneumothorax . CARDIOVASCULAR: Heart size appears within normal limits. Prominence of the left aortopulmonic window likely related to previously demonstrated dilated main pulmonary artery. Atherosclerotic calcifications of the aorta. OSSEOUS STRUCTURES: Degenerative changes. Osseous demineralization. VISUALIZED UPPER ABDOMEN: Unremarkable. OTHER FINDINGS: None. IMPRESSION: Hazy patchy right lower lobe atelectasis/infiltrate. Trace bilateral pleural effusions.
[2018-12-17 15:48] LABS: B-TYPE NATRIURETIC PEPTIDE 8550 pg/mL (0-900); CK-MB 5.74 ng/mL (0.0-3.38)
[2018-12-17 16:06] LABS: LYMPHOCYTE 7 % (20-40); MONOCYTE 6 % (0-10); NEUTROPHIL 86 % (50-75); PLATELET ESTIMATE NORMAL (NORMAL); TOTAL CELLS COUNTED 100
--- NOTE | 2018-12-17 16:19 | C.PDOC ---
History Of Present Illness Patient BIBA for evaluation of SOB, states she has been using home O2 since she was discharged and thinks the tank ran out of O2. She denies chest pain, palpitations, fever, cough, dysuria/hematuria. Patient is also c/o worsening upper abdominal pain, states she has a history of pancreatitis. PMHX: pancreatitis, pneumonia, DVT, COPD, depression Time Seen by Provider: 12/17/18 14:04 Chief Complaint (Nursing): Shortness Of Breath History Per: Patient History/Exam Limitations: no limitations Onset/Duration Of Symptoms: Days Current Symptoms Are (Timing): Still Present Current Respiratory Medications: See Home Med List Past Medical History Reviewed: Historical Data, Nursing Documentation, Vital Signs Vital Signs: Last Vital Signs Temp 98.2 F 12/17/18 14:15 Pulse 103 H 12/17/18 14:15 Resp 20 12/17/18 14:15 BP 100/61 12/17/18 15:54 Pulse Ox 100 12/17/18 14:15 - Medical History PMH: COPD, Depression, Deep Vein Thrombosis, Gall Bladder Disease (Cholelithiasis), Pancreatitis, Pneumonia (CHILDHOOD) Surgical History: Cholecystectomy, Endoscopy - [facility] Procedures ASSISTANCE WITH RESPIRATORY VENTILATION, >96 HRS, CPAP (11/30/18) DRAINAGE OF RIGHT PLEURAL CAVITY, PERC APPROACH, DIAGN (09/09/17) EXCISION OF SMALL INTESTINE, ENDO, DIAGN (09/09/17) FLUOROSCOPY OF GALLBLADDER & BILE DUCT USING L OSM CONTRAST (06/23/17) INSERT INTERCOSTAL CATH (11/15/13) NON-INVASIVE MECHANICAL VENTILATION (11/15/13) PARENTERAL INFUSION OF CONCENTRATED NUT. SUBSTANCE (11/15/13) RELEASE PELVIC SUBCU/FASCIA, PERC APPROACH (06/23/17) RESECTION OF GALLBLADDER, PERCUTANEOUS ENDOSCOPIC APPROACH (06/23/17) THORACOSCOPIC DECORTICATION OF LUNG (11/15/13) TRANSFUSE NONAUT FROZEN PLASMA IN PERIPH VEIN, PERC (11/30/18) TRANSFUSE NONAUT RED BLOOD CELLS IN PERIPH VEIN, PERC (11/30/18) Family History: States: No Known Family Hx - Social History Hx Tobacco Use: Yes Hx Alcohol Use: No Hx Substance Use: No - Immunization History Hx Tetanus Toxoid Vaccination: No Hx Influenza Vaccination: No Hx Pneumococcal Vaccination: No Review Of Systems Constitutional: Positive for: Weakness Cardiovascular: Negative for: Chest Pain, Palpitations Respiratory: Positive for: Shortness of Breath. Negative for: Cough Gastrointestinal: Positive for: Abdominal Pain. Negative for: Nausea, Vomiting, Diarrhea Skin: Negative for: Rash Neurological: Negative for: Weakness, Numbness Physical Exam - Physical Exam Appears: Non-toxic, In Acute Distress (in moderate pain), Chronically Ill, Other (cachectic) Skin: Normal Color, Warm, Dry, Other (dry scaley skin B/L lower legs/eet) Eye(s): bilateral: Normal Inspection Oral Mucosa: Dry Cardiovascular: Rhythm Regular (tachycardic ) Respiratory: No Accessory Muscle Use, No Rales, No Rhonchi, No Stridor, No Wheezing, Other (coarse breath sounds B/L ) Gastrointestinal/Abdominal: Bowel Sounds, Soft, Tenderness (diffuse abd pain greatest at epigastric and periumbilical area), No Distention, No Guarding Extremity: Normal ROM, No Deformity, Swelling (mild pedal edema B/L ) Pulses: Left Dorsalis Pedis: Normal, Right Dorsalis Pedis: Normal Neurological/Psych: Oriented x3 ED Course And Treatment - Laboratory Results Result Diagrams: 12/23/18 06:50 12/23/18 06:50 Lab Results: Puncture Site Rrdial 12/17/18 15:20 pCO2 49 mm/Hg (35-45) H 12/17/18 15:20 pO2 60 mm/Hg (80-100) L 12/17/18 15:20 HCO3 30.9 mmol/L (21-28) H 12/17/18 15:20 ABG pH 7.44 (7.35-7.45) 12/17/18 15:20 ABG Total CO2 34.8 mmol/L (22-28) H 12/17/18 15:20 ABG O2 Saturation 93.8 % (95-98) L 12/17/18 15:20 ABG Base Excess 7.8 mmol/L (-2.0-3.0) H 12/17/18 15:20 Eric Test Pos 12/17/18 15:20 ABG Potassium 3.3 mmol/L (3.6-5.2) L 12/17/18 15:20 Sodium 134.0 mmol/l (132-148) 12/17/18 15:20 Chloride 96.0 mmol/L (98-107) L 12/17/18 15:20 Glucose 76 mg/dl (65-105) 12/17/18 15:20 Lactate 1.5 mmol/L (0.7-2.1) 12/17/18 15:20 PT 13.3 SECONDS (9.7-12.2) H 12/17/18 15:18 INR 1.2 12/17/18 15:18 APTT 31 SECONDS (21-34) 12/17/18 15:18 Troponin I < 0.0120 ng/mL (0.00-0.120) 12/17/18 15:18 NT-Pro-B Natriuret Pep 8550 pg/mL (0-900) H 12/17/18 15:18 Total Bilirubin 1.1 mg/dL (0.2-1.3) 12/17/18 15:18 AST 45 U/L (14-36) H 12/17/18 15:18 ALT 25 U/L (9-52) 12/17/18 15:18 Alkaline Phosphatase 86 U/L (38-126) 12/17/18 15:18 Total Protein 5.6 g/dL (6.3-8.3) L 12/17/18 15:18 Albumin 3.0 g/dL (3.5-5.0) L 12/17/18 15:18 Globulin 2.6 gm/dL (2.2-3.9) 12/17/18 15:18 Albumin/Globulin Ratio 1.1 (1.0-2.1) 12/17/18 15:18 ECG: Interpreted By Me, Viewed By Me (sinus rhythm 97 bpm, shoft [place] interval, right axis deviation, T wave inversions I, II, III, aVF, V4-V6, no acute ST changes) ECG Interpretation: Abnormal O2 Sat by Pulse Oximetry: 100 (RA) Pulse Ox Interpretation: Normal - Radiology CXR: Interpreted by Me, Viewed By Me CXR Interpretation: Yes: Other (small pleural effusions B/L) Progress Note: Blood work, CXR, EKG, UA, CTA chest ordered and reviewed. Right sided 22 gauge EJ inserted by me, and left brachial artery arterial stick done by me for blood. Patient given IV fentanyl for pain (BP borderline low). - Physician Consult Information Physician Contacted: Connor Baker Outcome Of Conversation: Discussed patient with PMD, agrees with admission for pancreatitis, dyspnea, pleural effusion, pericardial effusion, CHF. Critical Care Time - Critical Care Note Total Time (in mins): 35 Documented critical care: time excludes all time spent performing seperately billable procedures. Disposition - Disposition Disposition: HOSPITALIZED Disposition Time: 18:17 Condition: FAIR - Clinical Impression Clinical Impression: Dyspnea, Pancreatitis, Pleural effusion, Pericardial effusion, CHF (congestive heart failure)
[2018-12-17 16:55] LABS: URINE BACTERIA RARE (<OCC); URINE BILIRUBIN NEGATIVE (NEGATIVE); URINE BLOOD 1+ (NEGATIVE); URINE CLARITY Clear (Clear); URINE COLOR Yellow (YELLOW); URINE GLUCOSE (UA) NORMAL (Normal); URINE LEUKOCYTE ESTERASE 2+ Leu/uL (Negative); URINE PROTEIN NEGATIVE (NEGATIVE); URINE UROBILINOGEN NORMAL mg/dL (0.2-1.0)
[2018-12-17] MEDS ORDERED: Iodixanol 320 MG/ML 100 ML BOTTLE IV ONE (17:05)
--- NOTE | 2018-12-17 17:57 | CT ---
Date of service: 12/17/2018 CTA chest PE protocol Indication: SOB, H/O DVT Technique: Contiguous axial images were obtained through the chest with intravenous contrast enhancement. Sagittal and coronal reconstructions were generated and reviewed. This CT exam was performed using 1 or more of the following dose reduction techniques: Automated exposure control, adjustment of the MAA and/or kV according to patient size, and/or use of iterative reconstruction technique. IV contrast: 100 cc Visipaque 320 IV Radiation dose (DLP): 166.12 MGy-cm. Comparison: Chest x-ray performed 12/17/18, CTA chest performed 12/01/18 Findings: Visualized portions of the inferior thyroid gland appear unremarkable. The mediastinal and hilar vascular structures appear within normal limits. The heart appears within normal limits of size. Small pericardial effusion. Enlargement of the pulmonary artery with main pulmonary trunk measuring approximately 3.8 cm in diameter; correlate for pulmonary arterial hypertension. No large central or segmental pulmonary embolus evident. Small right pleural effusion and associated consolidation. No pneumothorax. 4 mm subpleural right lower lobe nodule. Small hiatal hernia/esophageal wall thickening. Limited visualized portions of the upper abdomen: Upper abdominal ascites. Cholecystectomy clips. Partially imaged pancreas reveals heterogeneity/edema/peripancreatic inflammatory changes consistent with pancreatitis. Osseous demineralization. Degenerative changes. Impression: Enlarged pulmonary artery consistent with pulmonary arterial hypertension. Correlate clinically. No large central or segmental pulmonary embolus identified. Small right pleural effusion and associated consolidation. 4 mm subpleural right lower lobe nodule. Patient is considered high risk, suggest follow-up CT in 1 year. Small pericardial effusion. The Small hiatal hernia/esophageal wall thickening. Limited visualized portions of the upper abdomen: Upper abdominal ascites. Cholecystectomy clips. Partially imaged pancreas reveals heterogeneity/edema/peripancreatic inflammatory changes consistent with pancreatitis.
[2018-12-17] MEDS ORDERED: ACETAMINOPHEN WITH CODEINE PO PRN (21:04)
[2018-12-18] MEDS: Albuterol-Ipratrop 3 mg / 0.5 (3 ml) UD INH SCH ×4 (01:00→20:57)
[2018-12-18] MEDS ORDERED: Oxycodone/Acetaminophen 5/325 mg Tab PO STA (03:22)
[2018-12-18] MEDS ORDERED: LIPASE/PROTEASE/AMYLASE 21,000 U ECC PO SCH (09:00)
[2018-12-18] MEDS ORDERED: Acetaminophen-Codeine 300/30 mg Tab PO PRN (09:28)
[2018-12-18] MEDS ORDERED: oxyCODONE 10 mg ER Tab (oxyCONTIN) PO SCH (10:00)
[2018-12-18] MEDS: Docusate-Senna 50 mg-8.6 mg Tab PO SCH (11:16)
[2018-12-18] MEDS: Potassium Chloride 20 mEq ER Tab PO SCH (11:16)
[2018-12-18 12:24] LABS: ALBUMIN 2.6 g/dL (3.5-5.0); ALT/SGPT 19 U/L (9-52); AST/SGOT 34 U/L (14-36); BLOOD UREA NITROGEN 8 mg/dL (7-17); CALCIUM 7.8 mg/dl (8.6-10.4); GFR NON-AFRICAN AMERICAN > 60; LIPASE 406 U/L (23-300)
--- NOTE | 2018-12-18 15:27 | CP.PCM.CON ---
History of Present Illness - History of Present Illness History of Present Illness: Patient is a 58 year old female with a PMHx of COPD, depression, DVT, and pancreatitis presenting to the ED for SOB. Patient seen and examined at bedside She is afebrile with saturation of 95% on nasal cannula. Patient was recently discharged from hospital and treated for hemorrhagic pancreatitis, DVT and COPD exacerbation. Status post transfusion of packed RBCs and was discharged on anticoagulation. ROS: Denies fever, chills, nausea, vomiting, chest pain, PMHx: COPD, depression, DVT, Pancreatitis PSHx: cholecystectomy, endoscopy Meds: as per EMR Social: smoker, denies EtOH/drug use Allergies: NKDA Physical Exam Gen: AAOx3 Cardio: RRR, no murmur Pulm: bilateral wheezing Gi: soft, nontender A/P COPD -continue Duonebs -begin Solu-Medrol -Continue O2 via nasal cannula -Chest Xray on 12/17/18 showed hazy patchy right lLL atelectasis/infiltrate and trace BL pleural effusions -Chest Ct on 12/17/18 showed enlarged pulmonary artery consistent with pulmonary arterial HTN, no PE, small right pleural effusion, 4mm subpleural effusion, small pericardial effusion, small hiatal hernia/esophageal thickening. Past Patient History - Infectious Disease Hx of Infectious Diseases: None - Past Medical History & Family History Past Medical History?: Yes - Past Social History Smoking Status: Heavy Smoker > 10 Cigarettes Daily - CARDIAC Hx Cardiac Disorders: No - PULMONARY Hx Chronic Obstructive Pulmonary Disease (COPD): Yes - NEUROLOGICAL Hx Neurological Disorder: No - HEENT Hx HEENT Problems: No - RENAL Hx Chronic Kidney Disease: No - ENDOCRINE/METABOLIC Hx Endocrine Disorders: No - HEMATOLOGICAL/ONCOLOGICAL Hx Blood Disorders: No Hx Blood Transfusions: Yes Hx Blood Transfusion Reaction: No Other/Comment: Hepatitis - INTEGUMENTARY Hx Dermatological Problems: No - MUSCULOSKELETAL/RHEUMATOLOGICAL Hx Falls: No - GASTROINTESTINAL Hx Gall Bladder Disease: Yes (Cholelithiasis) Hx Pancreatitis: Yes - GENITOURINARY/GYNECOLOGICAL Hx Genitourinary Disorders: No Other/Comment: 1990 oophorectomy - PSYCHIATRIC Hx Depression: Yes Hx Substance Use: No - SURGICAL HISTORY Hx Cholecystectomy: Yes - ANESTHESIA Hx Anesthesia: Yes Hx Anesthesia Reactions: No Hx Malignant Hyperthermia: No Has any member of the family had a problem w/ anesthesia?: No Meds Allergies/Adverse Reactions: Allergies Allergy/AdvReac Type Severity Reaction Status Date / Time No Known Allergies Allergy Verified 12/17/18 14:21 - Medications Medications: Current Medications Albuterol/Ipratropium (Duoneb 3 Mg/0.5 Mg (3 Ml) Ud) 3 ml INH RQ6 [facility] Last Admin: 12/18/18 14:43 Dose: 3 ml Apixaban (Eliquis) 2.5 mg PO BID [facility] Last Admin: 12/18/18 11:16 Dose: 2.5 mg Famotidine (Pepcid) 20 mg PO BID [facility] Last Admin: 12/18/18 11:16 Dose: 20 mg Home Med (Zenpep Dr 15,000 Units Capsule) 1 tab PO TIDPC [facility] Morphine Sulfate (Morphine) 1 mg IV Q4H PRN PRN Reason: Pain, severe (8-10) Last Admin: 12/18/18 15:01 Dose: 1 mg Potassium Chloride (K-Dur 20 Meq Er Tab) 20 meq PO DAILY [facility] Last Admin: 12/18/18 11:16 Dose: 20 meq Potassium Chloride (Potassium Chloride Oral Soln) 40 meq PO Q4H [facility] Stop: 12/18/18 19:01 Senna/Docusate Sodium (Senokot S 50 Mg-8.6 Mg) 1 tab PO DAILY [facility] Last Admin: 12/18/18 11:16 Dose: 1 tab Results - Vital Signs Recent Vital Signs: Last Vital Signs Temp 98.1 F 12/18/18 07:00 Pulse 75 12/18/18 07:00 Resp 18 12/18/18 07:00 BP 95/61 L 12/18/18 07:00 Pulse Ox 95 12/18/18 07:00 - Labs Result Diagrams: 12/17/18 15:18 12/18/18 11:30 Labs: Laboratory Results - last 24 hr 12/17/18 12/17/18 12/17/18 15:18 15:18 15:18 WBC 8.5 RBC 4.62 Hgb 12.6 Hct 40.3 MCV 87.2 MCH 27.2 MCHC 31.2 L RDW 17.6 H Plt Count 351 MPV 8.4 Neut % (Auto) 86.2 H Lymph % (Auto) 7.1 L [place] % (Auto) 6.1 Eos % (Auto) 0.1 Baso % (Auto) 0.5 Neut # (Auto) 7.3 H Lymph # (Auto) 0.6 L [place] # (Auto) 0.5 Eos # (Auto) 0.0 Baso # (Auto) 0.0 Neutrophils % (Manual) 86 H Lymphocytes % (Manual) 7 L Monocytes % (Manual) 6 Platelet Estimate Normal PT 13.3 H INR 1.2 APTT 31 Puncture Site pCO2 pO2 HCO3 ABG pH ABG Total CO2 ABG O2 Saturation ABG Base Excess Eric Test ABG Potassium Glucose Lactate Sodium 134 Potassium 3.7 Chloride 92 L Carbon Dioxide 35 H Anion Gap 10 BUN 7 Creatinine 0.3 L Est GFR ( Amer) > 60 Est GFR (Non-Af Amer) > 60 POC Glucose (mg/dL) Random Glucose 83 Calcium 8.4 L Total Bilirubin 1.1 AST 45 H ALT 25 Alkaline Phosphatase 86 Total Creatine Kinase 97 CK-MB (Mass) 5.74 H Troponin I < 0.0120 NT-Pro-B Natriuret Pep 8550 H Total Protein 5.6 L Albumin 3.0 L Globulin 2.6 Albumin/Globulin Ratio 1.1 Lipase Arterial Blood Potassium Urine Color Urine Clarity Urine pH Ur Specific [place] Urine Protein Urine Glucose (UA) Urine Ketones Urine Blood Urine Nitrate Urine Bilirubin Urine Urobilinogen Ur Leukocyte Esterase Urine WBC (Auto) Urine RBC (Auto) Urine Bacteria 12/17/18 12/17/18 12/17/18 15:20 15:36 16:43 WBC RBC Hgb Hct MCV MCH MCHC RDW Plt Count MPV Neut % (Auto) Lymph % (Auto) [place] % (Auto) Eos % (Auto) Baso % (Auto) Neut # (Auto) Lymph # (Auto) [place] # (Auto) Eos # (Auto) Baso # (Auto) Neutrophils % (Manual) Lymphocytes % (Manual) Monocytes % (Manual) Platelet Estimate PT INR APTT Puncture Site Rrdial pCO2 49 H pO2 60 L HCO3 30.9 H ABG pH 7.44 ABG Total CO2 34.8 H ABG O2 Saturation 93.8 L ABG Base Excess 7.8 H Eric Test Pos ABG Potassium 3.3 L Glucose 76 Lactate 1.5 Sodium 134.0 Potassium Chloride 96.0 L Carbon Dioxide Anion Gap BUN Creatinine Est GFR ( Amer) Est GFR (Non-Af Amer) POC Glucose (mg/dL) 71 Random Glucose Calcium Total Bilirubin AST ALT Alkaline Phosphatase Total Creatine Kinase CK-MB (Mass) Troponin I NT-Pro-B Natriuret Pep Total Protein Albumin Globulin Albumin/Globulin Ratio Lipase Arterial Blood Potassium 3.3 L Urine Color Yellow Urine Clarity Clear Urine pH 6.0 Ur Specific [place] 1.011 Urine Protein Negative Urine Glucose (UA) Normal Urine Ketones 1+ H Urine Blood 1+ H Urine Nitrate Negative Urine Bilirubin Negative Urine Urobilinogen Normal Ur Leukocyte Esterase 2+ H Urine WBC (Auto) 7 H Urine RBC (Auto) 4 H Urine Bacteria Rare 12/18/18 11:30 WBC RBC Hgb Hct MCV MCH MCHC RDW Plt Count MPV Neut % (Auto) Lymph % (Auto) [place] % (Auto) Eos % (Auto) Baso % (Auto) Neut # (Auto) Lymph # (Auto) [place] # (Auto) Eos # (Auto) Baso # (Auto) Neutrophils % (Manual) Lymphocytes % (Manual) Monocytes % (Manual) Platelet Estimate PT INR APTT Puncture Site pCO2 pO2 HCO3 ABG pH ABG Total CO2 ABG O2 Saturation ABG Base Excess Eric Test ABG Potassium Glucose Lactate Sodium 133 Potassium 2.9 L Chloride 90 L Carbon Dioxide 38 H Anion Gap 8 L BUN 8 Creatinine 0.4 L Est GFR ( Amer) > 60 Est GFR (Non-Af Amer) > 60 POC Glucose (mg/dL) Random Glucose 142 H D Calcium 7.8 L Total Bilirubin 0.6 AST 34 ALT 19 Alkaline Phosphatase 67 Total Creatine Kinase CK-MB (Mass) Troponin I NT-Pro-B Natriuret Pep Total Protein 5.1 L Albumin 2.6 L Globulin 2.5 Albumin/Globulin Ratio 1.0 Lipase 406 H Arterial Blood Potassium Urine Color Urine Clarity Urine pH Ur Specific [place] Urine Protein Urine Glucose (UA) Urine Ketones Urine Blood Urine Nitrate Urine Bilirubin Urine Urobilinogen Ur Leukocyte Esterase Urine WBC (Auto) Urine RBC (Auto) Urine Bacteria
[2018-12-18] MEDS: MethylPREDNISolone 40 mg Vial IVP SCH ×2 (16:36→21:35)
[2018-12-18] MEDS: Potassium Chloride 20 mEq/15 ml LIQ UD PO SCH ×2 (16:36→18:34)
--- NOTE | 2018-12-18 23:45 | HP ---
CHIEF COMPLAINT: Weakness x1 day. HISTORY OF PRESENT ILLNESS: This is a 58-year-old female with history of deep venous thrombosis, status post IVC filter; anxiety; depression; pancreatitis with hemorrhagic pancreatitis; pancreatic insufficiency; malnutrition; COPD, on home oxygen and home nebulizer who is compliant. The patient was recently in the [facility] and after an extensive hospitalization, she needed to be in a subacute rehab, which she refused and she went home. Upon arriving in home, she did not find feel well, she felt weak, she had difficulty moving around; however, physically, she was stable with no pancreatic symptoms nor sequelae of venous thromboembolic disease, but she did not feel well, she did not find enough help at home. She decided to come back to the emergency room and to be admitted in subacute rehab and she was hospitalized. She has generalized weakness, tiredness, anorexia, malaise, and fatigue. She has no nausea or vomiting. She has pain. ALLERGIES: UNKNOWN. CURRENT MEDICATIONS: At home, she is on Vimpat, K-Dur, Colace, Pepcid, Klonopin, Eliquis, DuoNeb, Tylenol with Codeine, and Lac-Hydrin. SOCIAL HISTORY: Smokes . Drinking, no. PAST MEDICAL HISTORY: Pancreatitis, pancreatic insufficiency and COPD, on home oxygen. PHYSICAL EXAMINATION: GENERAL: Middle-aged female, looks sick, nauseated, weak. VITAL SIGNS: Blood pressure 95/61, pulse 97, respiratory rate 18, and temperature 98.1. SKIN: Pale, poor turgor. HEENT: Atraumatic and normocephalic. Negative pallor. Negative jaundice. Extraocular movements are intact. NECK: Supple. No JVD. No lymph node. No thyromegaly. No carotid bruits. CHEST WALL: Bilateral symmetrical expansion. LUNGS: Decreased air entry. Positive rhonchi. CARDIOVASCULAR SYSTEM: S1 and S2 are regular. ABDOMEN: Soft and nontender. Bowel sounds are positive. RECTAL: No masses. No bleeding. EXTREMITIES: No clubbing, cyanosis, or edema. CENTRAL NERVOUS SYSTEM: Awake, alert, and oriented x3. Cranial nerves II through XII are intact. ASSESSMENT: 1. Generalized debility, difficulty walking. The patient needs to be in subacute rehabilitation. 2. Severe hypokalemia. 3. Pancreatitis. 4. Chronic obstructive pulmonary disease. PLAN: Admit. Detailed orders are written. Seen and examined. Connor Baker MD
[2018-12-19] MEDS: Albuterol-Ipratrop 3 mg / 0.5 (3 ml) UD INH SCH ×4 (01:50→19:23)
[2018-12-19] MEDS: MethylPREDNISolone 40 mg Vial IVP SCH ×3 (05:48→21:23)
--- NOTE | 2018-12-19 09:29 | PN ---
DATE: 12/19/2018 LOCATION: 653, bed B. SUBJECTIVE: This is a 58-year-old female, seen and examined initially for GI consultation, initially on 12/18/2018, reexamined again today with intermittent period of severe abdominal pain, postprandial abdominal distention with the latest lipase level of 406 with low albumin and low total protein. Today's lab result is still pending. The entire chart is reviewed including, but not limited to the most recent lab and radiology study results, current and previous medication list, current and the previous medical events. Case discussed with the staff at length. The patient reported no active bleeding, chest pain, significant shortness of breath, palpitation recently. PHYSICAL EXAMINATION: GENERAL: A 58-year-old female. VITAL SIGNS: Afebrile with heart rate of 102, respiratory rate 20-22, blood pressure of 110/74. HEENT: Showed pale dry oral mucous membrane. Nonicteric sclerae. LUNGS: Few scattered crepitation. Decreased air entry at bases. HEART: Positive S1 and S2. ABDOMEN: Soft with mild generalized tenderness. No mass or organomegaly. No rebound tenderness or guarding. It has to be mentioned that the patient has small amount of ascites. HEART: S1 and S2. EXTREMITIES: Lower extremities with mild edematous changes. No clubbing or cyanosis. NEUROLOGIC: No reported new neurological deficit, sensory or motor. LABORATORY DATA: Chest CAT scan was performed with abnormalities including evidence of pulmonary hypertension and pulmonary nodule with small amount of ascites. Please see official report. IMPRESSION: 1. Re-exacerbation of peptic ulcer disease. 2. Re-exacerbation of pancreatitis with recently reported necrotic pancreatitis by radiology study results. 3. Abnormal CAT scan of the chest as reported above. 4. Known history of chronic obstructive pulmonary disease, recurrent pancreatitis, pneumonia as well as cholelithiasis by history as recommended with deep venous thrombosis with status post cholecystectomy. SUGGESTIONS: 1. Agree with your plan. 2. Lipids profile. 3. Follow up in serum lipase level. 4. Surgical reevaluation, and MRCP to be repeated if the patient's lipase and amylase level subsequently increased. We will follow up closely with you. Yin Patel MD
[2018-12-19] MEDS: Potassium Chloride 20 mEq ER Tab PO SCH (10:19)
[2018-12-19] MEDS: Docusate-Senna 50 mg-8.6 mg Tab PO SCH (10:20)
[2018-12-19 12:12] LABS: BLOOD UREA NITROGEN 9 mg/dL (7-17); CALCIUM 7.8 mg/dl (8.6-10.4); GFR NON-AFRICAN AMERICAN > 60; HDL CHOLESTEROL 52 mg/dL (30-70); LIPASE 230 U/L (23-300)
[2018-12-19 12:23] LABS: LDL CHOLESTEROL 81 mg/dL (0-129)
--- NOTE | 2018-12-19 12:58 | CP.PCM.PN ---
Subjective - Date & Time of Evaluation Date of Evaluation: 12/19/18 Time of Evaluation: 11:20 - Subjective Subjective: Patient seen and examined Complaining of abdominal pain and 1 mg of morphine not helping her Breathing much improved Afebrile Denies any chest pain or cough Objective - Vital Signs/Intake and Output Vital Signs (last 24 hours): Temp Pulse Resp BP Pulse Ox 99.1 F 99 H 18 107/72 100 12/19/18 07:00 12/19/18 08:00 12/19/18 07:00 12/19/18 07:00 12/19/18 07:00 Intake and Output: 12/19/18 12/19/18 06:59 18:59 Output Total 1200 Balance -1200 - Medications Medications: Current Medications Albuterol/Ipratropium (Duoneb 3 Mg/0.5 Mg (3 Ml) Ud) 3 ml INH RQ6 [facility] Last Admin: 12/19/18 01:50 Dose: 3 ml Apixaban (Eliquis) 2.5 mg PO BID [facility] Last Admin: 12/19/18 10:20 Dose: 2.5 mg Famotidine (Pepcid) 20 mg PO BID [facility] Last Admin: 12/19/18 10:19 Dose: 20 mg Home Med (Zenpep Dr 15,000 Units Capsule) 1 tab PO TIDPC [facility] Methylprednisolone (Solu-Medrol) 40 mg IVP Q8 [facility] Last Admin: 12/19/18 05:48 Dose: 40 mg Morphine Sulfate (Morphine) 2 mg IV Q4H PRN PRN Reason: Pain, severe (8-10) Potassium Chloride (K-Dur 20 Meq Er Tab) 20 meq PO DAILY [facility] Last Admin: 12/19/18 10:19 Dose: 20 meq Potassium Chloride (K-Dur 20 Meq Er Tab) 20 meq PO ONCE ONE Stop: 12/19/18 12:35 Senna/Docusate Sodium (Senokot S 50 Mg-8.6 Mg) 1 tab PO DAILY [facility] Last Admin: 12/19/18 10:20 Dose: 1 tab - Labs Labs: 12/17/18 15:18 12/19/18 11:46 PT 13.3 SECONDS (9.7-12.2) H 12/17/18 15:18 INR 1.2 12/17/18 15:18 APTT 31 SECONDS (21-34) 12/17/18 15:18 - Head Exam Head Exam: ATRAUMATIC, NORMOCEPHALIC - ENT Exam ENT Exam: Mucous Membranes Moist - Neck Exam Neck Exam: Normal Inspection - Respiratory Exam Respiratory Exam: Clear to Ausculation Bilateral - Cardiovascular Exam Cardiovascular Exam: REGULAR RHYTHM - GI/Abdominal Exam GI & Abdominal Exam: Soft, Normal Bowel Sounds Assessment and Plan (1) COPD (chronic obstructive pulmonary disease) Assessment & Plan: Continue nebulizer treatment and steroids Status: Acute (2) Hemorrhagic pancreatitis Assessment & Plan: Increase morphine to 2 mg every 4 as needed Continue Eliquis for now Status: Acute
[2018-12-19] MEDS ORDERED: Potassium Chloride 20 mEq ER Tab PO ONE (13:45)
[2018-12-19] MEDS: LIPASE/PROTEASE/AMYLASE 21,000 U ECC PO SCH (18:07)
--- NOTE | 2018-12-19 22:16 | PN ---
DATE: 12/19/2018 SUBJECTIVE: The patient is anxious. She is not depressed. She is calm. She is on pain medication. She is requiring on and off pain medication. She is on blood thinners, seen by Pulmonary. PHYSICAL EXAMINATION: VITAL SIGNS: Blood pressure 107/60, pulse 104, respiratory rate 20, and temperature 98.6. LUNGS: Decreased air entry. Positive rhonchi. CARDIOVASCULAR SYSTEM: PMI not localized. S1, S2, regular. ABDOMEN: Soft, nontender. Bowel sounds positive. LABORATORY DATA: Not done today, pCO2 is 14, pO2 is 60. ASSESSMENT: 1. Generalized weakness, inability to cry. 2. Chronic obstructive pulmonary disease with hypercarbia. 3. Pancreatic insufficiency, chronic recurrent pancreatitis. PLAN: Monitor the patient. Connor Baker MD
[2018-12-20] MEDS: Albuterol-Ipratrop 3 mg / 0.5 (3 ml) UD INH SCH ×4 (01:51→19:22)
[2018-12-20] MEDS: MethylPREDNISolone 40 mg Vial IVP SCH ×3 (05:52→21:17)
--- NOTE | 2018-12-20 08:10 | PN ---
DATE: 12/20/2018 LOCATION: 653, bed B. SUBJECTIVE: This 58-year-old female seen and examined in rounds without significant clinical changes, but intermittent period of abdominal pain with nausea and dyspepsia. The entire chart is reviewed including, but not limited to the most recent lab and radiology study results. The patient still has period of mild dyspepsia associated with her abdominal pain and dyspepsia, but no more vomiting, no diarrhea, and denied any chest pain, palpitation, or significant shortness of breath which had been improving gradually. LABORATORY DATA: Most recent lab results for today is still pending, but the patient still has low potassium with normal BUN with low creatinine. Latest blood glucose level 169, calcium 7.8, albumin 2.6 with normal triglyceride, and as per yesterday, normal lipase level of 230. PHYSICAL EXAMINATION: GENERAL: A 58-year-old female. VITAL SIGNS: Afebrile with pulse of 92, respiratory rate 20-22, blood pressure of 124/70. HEENT: Showed pale dry oral mucous membrane. Nonicteric sclerae. LUNGS: Few scattered crepitation. Decreased air entry at bases. HEART: Positive S1 and S2. ABDOMEN: Soft with mild generalized tenderness. No mass or organomegaly. No rebound tenderness or guarding. EXTREMITIES: Without significant clubbing, cyanosis, or edema. IMPRESSION: 1. Acute hemorrhagic pancreatitis by recent history. 2. Known history of chronic obstructive pulmonary disease with pneumonia. 3, Deep venous thrombosis by history. 4. Depression by history. 5. Re-exacerbation of peptic ulcer disease. 6. Anemia by very recent history, with reported blood transfusion. 7. Electrolyte imbalance with hypokalemia, hypocalcemia, most likely secondary to above. 8. Status post cholecystectomy by history. SUGGESTIONS: 1. Continue current management. 2. Start [id number] liquid diet. 3. The patient will need MRCP with surgical reevaluation. Yin Patel MD
[2018-12-20] MEDS: Potassium Chloride 20 mEq ER Tab PO SCH (09:09)
[2018-12-20] MEDS: Docusate-Senna 50 mg-8.6 mg Tab PO SCH (09:09)
[2018-12-20] MEDS: LIPASE/PROTEASE/AMYLASE 21,000 U ECC PO SCH ×3 (09:09→17:13)
--- NOTE | 2018-12-20 18:00 | CP.PCM.PN ---
Subjective - Date & Time of Evaluation Date of Evaluation: 12/20/18 Time of Evaluation: 17:55 - Subjective Subjective: Patient seen and examined Still complaining of abdominal pain Patient states morphine 2 mg is not helping Shortness of breath in the morning and responded to nebulizer treatment Continue present treatment Objective - Vital Signs/Intake and Output Vital Signs (last 24 hours): Temp Pulse Resp BP Pulse Ox 98.3 F 76 20 124/82 97 12/20/18 16:00 12/20/18 16:00 12/20/18 16:00 12/20/18 16:00 12/20/18 16:00 Intake and Output: 12/20/18 12/20/18 06:59 18:59 Output Total 1000 Balance -1000 - Medications Medications: Current Medications Albuterol/Ipratropium (Duoneb 3 Mg/0.5 Mg (3 Ml) Ud) 3 ml INH RQ6 [facility] Last Admin: 12/20/18 13:20 Dose: 3 ml Apixaban (Eliquis) 2.5 mg PO BID [facility] Last Admin: 12/20/18 17:12 Dose: 2.5 mg Famotidine (Pepcid) 20 mg PO BID [facility] Last Admin: 12/20/18 17:13 Dose: 20 mg Methylprednisolone (Solu-Medrol) 40 mg IVP Q8 [facility] Last Admin: 12/20/18 13:28 Dose: 40 mg Morphine Sulfate (Morphine) 2 mg IV Q4H PRN PRN Reason: Pain, severe (8-10) Last Admin: 12/20/18 16:17 Dose: 2 mg Nicotine (Nicoderm Cq) 1 patch TD DAILY [facility] Last Admin: 12/20/18 09:10 Dose: 1 patch Potassium Chloride (K-Dur 20 Meq Er Tab) 20 meq PO DAILY [facility] Last Admin: 12/20/18 09:09 Dose: 20 meq Senna/Docusate Sodium (Senokot S 50 Mg-8.6 Mg) 1 tab PO DAILY [facility] Last Admin: 12/20/18 09:09 Dose: 1 tab - Labs Labs: 12/17/18 15:18 12/19/18 11:46 PT 13.3 SECONDS (9.7-12.2) H 12/17/18 15:18 INR 1.2 12/17/18 15:18 APTT 31 SECONDS (21-34) 12/17/18 15:18 Assessment and Plan (1) COPD (chronic obstructive pulmonary disease) Status: Acute (2) Hemorrhagic pancreatitis Status: Acute
[2018-12-21] MEDS: Albuterol-Ipratrop 3 mg / 0.5 (3 ml) UD INH SCH ×4 (01:54→19:53)
--- NOTE | 2018-12-21 04:05 | PN ---
DATE: 12/21/2018 SUBJECTIVE: The patient is less short of breath, less cough, less wheezing. She is afebrile. PHYSICAL EXAMINATION: VITAL SIGNS: Blood pressure 124/82, pulse 74, respiratory rate 20, and temperature 98.3. LUNGS: Decreased air entry. CARDIOVASCULAR SYSTEM: S1, S2 regular. ABDOMEN: Soft. ASSESSMENT: 1. Hypokalemia. 2. Chronic obstructive pulmonary disease. 3. Generalized debility. 4. Deep venous thrombosis. PLAN: Subacute rehab and monitor the patient. Connor Baker MD
[2018-12-21] MEDS: MethylPREDNISolone 40 mg Vial IVP SCH ×3 (05:36→17:10)
[2018-12-21 07:40] LABS: MEAN CELL VOLUME 87.5 fL (81.0-99.0); MEAN CORPUSCULAR HEMOGLOBIN 27.6 pg (27.0-31.0); MEAN CORPUSCULAR HGB CONC 31.5 g/dL (33.0-37.0); MEAN PLATELET VOLUME 8.4 fL (7.2-11.7); RBC 3.86 Mil/uL (3.80-5.20); RED CELL DISTRIBUTION WIDTH 17.3 % (11.5-14.5); WHITE BLOOD COUNT 6.8 K/uL (4.8-10.8)
[2018-12-21 07:56] LABS: HEMOGLOBIN 10.6 g/dL (11.0-16.0)
[2018-12-21 08:12] LABS: BLOOD UREA NITROGEN 16 mg/dL (7-17); CALCIUM 7.9 mg/dl (8.6-10.4); GFR NON-AFRICAN AMERICAN > 60
[2018-12-21] MEDS: LIPASE/PROTEASE/AMYLASE 21,000 U ECC PO SCH ×3 (08:15→17:10)
[2018-12-21] MEDS: Potassium Chloride 20 mEq ER Tab PO SCH (10:05)
[2018-12-21] MEDS: Docusate-Senna 50 mg-8.6 mg Tab PO SCH (10:05)
--- NOTE | 2018-12-21 12:13 | CP.PCM.CON ---
History of Present Illness - History of Present Illness History of Present Illness: Consult note for Dr. Martin. This is a 58 y.o female with past medical history of DVT, choleliathiasis s/p cholecystectomy, depression, and chronic pancreatitis who presented to the ED with SOB. The patient was recently admitted and treated for hemorrhagic pancreatitis and was discharged to home on 12/15/18 after refusing rehab. She returned to the hospital due to shortness of breath which she attributed to running low on her home oxygen tank. She is currently complaining of epigastric pain, describes it as dull pain, 10/10. She notes recent weight loss of 45 lbs, but cannot specify the time period. Denies fever, chills, chest pain, SOB, nausea, vomiting, dysuria, hematemesis, hematochezia, constipation and diarrhea. PMH - COPD, DVT, Cholelithiasis, Pancreatitis PSH - Cholecystectomy (Jun 2017), IVC filter, thoracotomy (2013) Allergies - NKDA Meds - see med list FamHx - Denies SocHx - Alcohol- used to drink beer, quit 10 years ago, tobacco (1/2 pack a day since teens), denies drug use Review of Systems - Review of Systems Review of Systems: see HPI - Constitutional Constitutional: Weight Loss. absent: Chills, Fever, Headache - EENT Eyes: absent: Change in Vision - Cardiovascular Cardiovascular: absent: Chest Pain, Leg Edema, Palpitations - Respiratory Respiratory: Dyspnea. absent: Cough - Gastrointestinal Gastrointestinal: Abdominal Pain. absent: Constipation, Diarrhea, Dysphagia, Hematochezia, Nausea, Vomiting - Genitourinary Genitourinary: absent: Difficulty Urinating, Dysuria - Musculoskeletal Musculoskeletal: absent: Muscle Cramps, Muscle Weakness - Neurological Neurological: absent: Confusion, Dizziness, Numbness, Focal Weakness, Headaches, Syncope Past Patient History - Infectious Disease Hx of Infectious Diseases: None - Past Medical History & Family History Past Medical History?: Yes - Past Social History Smoking Status: Heavy Smoker > 10 Cigarettes Daily - CARDIAC Hx Cardiac Disorders: No - PULMONARY Hx Chronic Obstructive Pulmonary Disease (COPD): Yes - NEUROLOGICAL Hx Neurological Disorder: No - HEENT Hx HEENT Problems: No - RENAL Hx Chronic Kidney Disease: No - ENDOCRINE/METABOLIC Hx Endocrine Disorders: No - HEMATOLOGICAL/ONCOLOGICAL Hx Blood Disorders: No Hx Blood Transfusions: Yes Hx Blood Transfusion Reaction: No Other/Comment: Hepatitis - INTEGUMENTARY Hx Dermatological Problems: No - MUSCULOSKELETAL/RHEUMATOLOGICAL Hx Falls: No - GASTROINTESTINAL Hx Gall Bladder Disease: Yes (Cholelithiasis) Hx Pancreatitis: Yes - GENITOURINARY/GYNECOLOGICAL Hx Genitourinary Disorders: No Other/Comment: 1989 oophorectomy - PSYCHIATRIC Hx Depression: Yes Hx Substance Use: No - SURGICAL HISTORY Hx Cholecystectomy: Yes - ANESTHESIA Hx Anesthesia: Yes Hx Anesthesia Reactions: No Hx Malignant Hyperthermia: No Has any member of the family had a problem w/ anesthesia?: No Meds Allergies/Adverse Reactions: Allergies Allergy/AdvReac Type Severity Reaction Status Date / Time No Known Allergies Allergy Verified 12/17/18 14:21 - Medications Medications: Current Medications Albuterol/Ipratropium (Duoneb 3 Mg/0.5 Mg (3 Ml) Ud) 3 ml INH RQ6 [facility] Last Admin: 12/21/18 08:19 Dose: 3 ml Apixaban (Eliquis) 2.5 mg PO BID [facility] Last Admin: 12/21/18 10:04 Dose: 2.5 mg Famotidine (Pepcid) 20 mg PO BID [facility] Last Admin: 12/21/18 10:05 Dose: 20 mg Methylprednisolone (Solu-Medrol) 40 mg IVP Q8 [facility] Last Admin: 12/21/18 05:36 Dose: 40 mg Morphine Sulfate (Morphine) 2 mg IV Q3 PRN PRN Reason: Pain, severe (8-10) Last Admin: 12/21/18 11:09 Dose: 2 mg Nicotine (Nicoderm Cq) 1 patch TD DAILY [facility] Last Admin: 12/21/18 10:04 Dose: 1 patch Potassium Chloride (K-Dur 20 Meq Er Tab) 20 meq PO DAILY [facility] Last Admin: 12/21/18 10:05 Dose: 20 meq Senna/Docusate Sodium (Senokot S 50 Mg-8.6 Mg) 1 tab PO DAILY [facility] Last Admin: 12/21/18 10:05 Dose: 1 tab Physical Exam - Constitutional Appears: Non-toxic, No Acute Distress - Head Exam Head Exam: ATRAUMATIC, NORMAL INSPECTION, NORMOCEPHALIC - Eye Exam Pupil Exam: NORMAL ACCOMODATION - ENT Exam ENT Exam: Mucous Membranes Moist, Normal Exam - Neck Exam Neck exam: Positive for: Normal Inspection - Respiratory Exam Respiratory Exam: NORMAL BREATHING PATTERN - Cardiovascular Exam Cardiovascular Exam: REGULAR RHYTHM, +S1, +S2 - GI/Abdominal Exam GI & Abdominal Exam: Normal Bowel Sounds, Soft. absent: Distended, Firm, Guarding, Rebound, Rigid Additional comments: No Vikash's or Truong ojeda's sign. - Neurological Exam Neurological exam: Alert, Oriented x3 - Psychiatric Exam Psychiatric exam: Normal Affect, Normal Mood - Skin Skin Exam: Intact, Normal Color, Warm Results - Vital Signs Recent Vital Signs: Last Vital Signs Temp 98.5 F 12/21/18 07:30 Pulse 108 H 12/21/18 11:27 Resp 18 12/21/18 07:30 BP 135/84 12/21/18 07:30 Pulse Ox 99 12/21/18 07:30 - Labs Result Diagrams: 12/21/18 07:27 12/21/18 07:27 Labs: Laboratory Results - last 24 hr 12/21/18 12/21/18 07:27 07:27 WBC 6.8 RBC 3.86 Hgb 10.6 L D Hct 33.8 L MCV 87.5 MCH 27.6 MCHC 31.5 L RDW 17.3 H Plt Count 385 MPV 8.4 Sodium 133 Potassium 3.7 Chloride 93 L Carbon Dioxide 34 H Anion Gap 9 L BUN 16 Creatinine 0.4 L Est GFR ( Amer) > 60 Est GFR (Non-Af Amer) > 60 Random Glucose 99 D Calcium 7.9 L Magnesium 1.8 Assessment & Plan - Assessment and Plan (Free Text) Assessment: 58 y.o female with past medical history of DVT, choleliathiasis s/p cholecyste ctomy, and chronic pancreatitis. -no acute surgical intervention -no further imaging indicated -follow up with Dr. Martin on an out-patient basis Discussed with Dr. Martin. Kathleen Bales- PGY-1
--- NOTE | 2018-12-21 14:48 | PN ---
DATE: 12/21/2018 LOCATION: 3. SUBJECTIVE: This is a 58-year-old female with recurrent complaint of midepigastric and right upper abdominal pain, but without any reported active GI bleeding, chest pain, palpitation or significant shortness of breath. The entire chart is reviewed and today's lab showed hemoglobin 10.6, hematocrit 33.8 with CO2 content 34 indicative of respiratory alkalosis with low albumin, calcium 7.9 with the latest lipase 2 days ago of 230, normal as well as normal lipid profile. PHYSICAL EXAMINATION: GENERAL: An 58-year-old female. VITAL SIGNS: Afebrile with pulse of 102, respiratory rate 20 to 22, blood pressure of 130/76. HEENT: Showed pale dry oral mucous membrane. Nonicteric sclerae. LUNGS: Few scattered crepitation. Decreased air entry at bases. HEART: Positive S1 and S2 with increased rate. ABDOMEN: Soft with mild generalized tenderness. No mass or organomegaly. No rebound tenderness or guarding. EXTREMITIES: Without significant clubbing, cyanosis or edema. NEUROLOGIC: No reported new neurological deficits, sensory or motor. IMPRESSION: 1. Re-exacerbation of peptic ulcer disease. 2. Recurrent acute on top of chronic pancreatitis, it is acute hemorrhagic pancreatitis. 3. Known history of chronic obstructive pulmonary disease with pneumonia. 4. Deep venous thrombosis, by history. 5. History of depression, fluctuating episodes of hyperglycemia as well as peptic ulcer disease. 6. Anemia, secondary to above most likely. SUGGESTIONS: 1. Continue current management. 2. Antireflux measure. 3. Further evaluation to follow. Yin Patel MD
--- NOTE | 2018-12-21 17:21 | CP.PCM.PN ---
Subjective - Date & Time of Evaluation Date of Evaluation: 12/21/18 Time of Evaluation: 10:20 - Subjective Subjective: Patient seen and examined Still complaining of abdominal pain Breathing much improved Afebrile Seen by surgery Objective - Vital Signs/Intake and Output Vital Signs (last 24 hours): Temp Pulse Resp BP Pulse Ox 98.5 F 115 H 20 122/75 96 12/21/18 16:00 12/21/18 16:00 12/21/18 16:00 12/21/18 16:00 12/21/18 16:00 Intake and Output: 12/21/18 12/21/18 06:59 18:59 Intake Total 300 Output Total 800 500 Balance -800 -200 - Medications Medications: Current Medications Albuterol/Ipratropium (Duoneb 3 Mg/0.5 Mg (3 Ml) Ud) 3 ml INH RQ6 [facility] Last Admin: 12/21/18 13:45 Dose: 3 ml Apixaban (Eliquis) 2.5 mg PO BID [facility] Last Admin: 12/21/18 17:10 Dose: 2.5 mg Famotidine (Pepcid) 20 mg PO BID [facility] Last Admin: 12/21/18 17:10 Dose: 20 mg Methylprednisolone (Solu-Medrol) 40 mg IVP Q12H [facility] Last Admin: 12/21/18 17:10 Dose: 40 mg Morphine Sulfate (Morphine) 2 mg IV Q3 PRN PRN Reason: Pain, severe (8-10) Last Admin: 12/21/18 17:11 Dose: 2 mg Nicotine (Nicoderm Cq) 1 patch TD DAILY [facility] Last Admin: 12/21/18 10:04 Dose: 1 patch Potassium Chloride (K-Dur 20 Meq Er Tab) 20 meq PO DAILY [facility] Last Admin: 12/21/18 10:05 Dose: 20 meq Senna/Docusate Sodium (Senokot S 50 Mg-8.6 Mg) 1 tab PO DAILY [facility] Last Admin: 12/21/18 10:05 Dose: 1 tab - Labs Labs: 12/21/18 07:27 12/21/18 07:27 PT 13.3 SECONDS (9.7-12.2) H 12/17/18 15:18 INR 1.2 12/17/18 15:18 APTT 31 SECONDS (21-34) 02/14/19 15:18 - Head Exam Head Exam: ATRAUMATIC, NORMOCEPHALIC - ENT Exam ENT Exam: Mucous Membranes Moist - Neck Exam Neck Exam: Normal Inspection - Respiratory Exam Respiratory Exam: Decreased Breath Sounds - Cardiovascular Exam Cardiovascular Exam: REGULAR RHYTHM Assessment and Plan (1) COPD (chronic obstructive pulmonary disease) Assessment & Plan: Continue nebulizer treatment Increase morphine every 3 hours Taper steroids Status: Acute (2) Hemorrhagic pancreatitis Status: Acute
--- NOTE | 2018-12-21 20:38 | CP.PCM.PN ---
Subjective - Date & Time of Evaluation Date of Evaluation: 12/21/18 Time of Evaluation: 08:40 - Subjective Subjective: dictated Objective - Vital Signs/Intake and Output Vital Signs (last 24 hours): Temp Pulse Resp BP Pulse Ox 98.5 F 107 H 20 122/75 96 12/21/18 16:00 12/21/18 16:00 12/21/18 16:00 12/21/18 16:00 12/21/18 16:00 Intake and Output: 12/21/18 12/22/18 18:59 06:59 Intake Total 300 Output Total 500 Balance -200 - Medications Medications: Current Medications Albuterol/Ipratropium (Duoneb 3 Mg/0.5 Mg (3 Ml) Ud) 3 ml INH RQ6 [facility] Last Admin: 12/21/18 19:53 Dose: 3 ml Apixaban (Eliquis) 2.5 mg PO BID [facility] Last Admin: 12/21/18 17:10 Dose: 2.5 mg Famotidine (Pepcid) 20 mg PO BID [facility] Last Admin: 12/21/18 17:10 Dose: 20 mg Methylprednisolone (Solu-Medrol) 40 mg IVP Q12H [facility] Last Admin: 12/21/18 17:10 Dose: 40 mg Morphine Sulfate (Morphine) 2 mg IV Q3 PRN PRN Reason: Pain, severe (8-10) Last Admin: 12/21/18 20:16 Dose: 2 mg Nicotine (Nicoderm Cq) 1 patch TD DAILY [facility] Last Admin: 12/21/18 10:04 Dose: 1 patch Potassium Chloride (K-Dur 20 Meq Er Tab) 20 meq PO DAILY [facility] Last Admin: 12/21/18 10:05 Dose: 20 meq Senna/Docusate Sodium (Senokot S 50 Mg-8.6 Mg) 1 tab PO DAILY [facility] Last Admin: 12/21/18 10:05 Dose: 1 tab - Labs Labs: 12/21/18 07:27 12/21/18 07:27 PT 13.3 SECONDS (9.7-12.2) H 12/17/18 15:18 INR 1.2 12/17/18 15:18 APTT 31 SECONDS (21-34) 12/17/18 15:18
--- NOTE | 2018-12-21 23:44 | PN ---
DATE: 12/21/2018 SUBJECTIVE: The patient complained of lot of pain in the abdomen, and GI recommended hepatobiliary consult. The patient has upper abdominal pain, nausea. No vomiting. She is anxious. She is dyspneic. She is on oxygen and nebulizer. She denies any fevers or chills. The patient recently had hemorrhagic pancreatitis with necrosis. The patient right now is tolerating diet. PHYSICAL EXAMINATION: VITAL SIGNS: Blood pressure 122/71, pulse 115, respiratory rate 20, and temperature 98.5. LUNGS: Decreased air entry. CARDIOVASCULAR SYSTEM: S1 and S2. Regular. ABDOMEN: Soft and nontender. Bowel sounds are positive. ASSESSMENT: 1. Chronic obstructive pulmonary disease. 2. Hemorrhagic necrotizing pancreatitis, recurrent. Magnetic resonance cholangiopancreatography suggested by Gastrointestinal. 3. Anxiety and depression. 4. Dehydration. PLAN: Continue current medications, MRCP, hepatobiliary surgical consult. Monitor the patient. Connor Baker MD
[2018-12-22] MEDS: Albuterol-Ipratrop 3 mg / 0.5 (3 ml) UD INH SCH ×4 (01:36→20:37)
[2018-12-22] MEDS: MethylPREDNISolone 40 mg Vial IVP SCH ×2 (05:57→18:10)
[2018-12-22] MEDS: Potassium Chloride 20 mEq ER Tab PO SCH ×2 (09:25→11:39)
[2018-12-22] MEDS: Docusate-Senna 50 mg-8.6 mg Tab PO SCH ×3 (09:25→11:39)
[2018-12-22] MEDS: LIPASE/PROTEASE/AMYLASE 21,000 U ECC PO SCH ×3 (09:27→18:10)
[2018-12-22] MEDS: HYDROmorphone 1 mg/ml ISec IVP PRN ×3 (12:40→20:12)
--- NOTE | 2018-12-22 12:56 | MRI ---
MRI abdomen without/with IV contrast MRCP Indication: abdominal pain, pancreatitis Technique: Multiplanar, multi sequence magnetic resonance images of the abdomen were obtained without and with the administration of intravenous gadolinium using a multi phase abdomen protocol. Rotating maximum intensity projection images of the biliary system were generated. A total of 1085 images submitted for review Comparison: Pancreatic protocol CT performed 12/05/18, CT abdomen and pelvis with IV contrast performed 12/04/18 Findings: Markedly limited examination with marked patient motion. The liver appears unremarkable. Status post cholecystectomy. There is no intrahepatic biliary ductal dilatation. The common bile duct appears appears dilated measuring approximately 8 mm in diameter with distal taper. No focal filling defect evident within the common bile duct. The pancreatic duct appears within normal limits of caliber. No filling defects are seen in the common bile duct or pancreatic duct. Peripancreatic inflammatory changes and focal fluid collection measuring approximately 1.6 x 4.5 cm in the lesser sac. The limited visualized spleen, pancreas, and adrenal glands appear grossly unremarkable. The kidneys enhance symmetrically. No obstructing calculus or hydronephrosis. No bulky adenopathy appreciated. Limited views of the inferior thorax: Small right pleural effusion. Impression: Markedly limited examination due to patient motion. Peripancreatic inflammatory changes consistent with history of pancreatitis and focal fluid collection measuring approximately 1.6 x 4.5 cm. This large ovoid fluid collection in the lesser sac consistent with pseudocyst. Mildly dilated common bile duct in the setting of cholecystectomy. Small right pleural effusion.
--- NOTE | 2018-12-22 15:50 | CP.PCM.PN ---
Subjective - Date & Time of Evaluation Date of Evaluation: 12/22/18 Time of Evaluation: 11:00 - Subjective Subjective: Patient seen and examined at bedside She is afebrile with saturation of 95% on room air Patient is in pain in the bed but breathing has improved. Had an MRCP today Denies CP, fever, nausea, vomiting. Physical Exam Gen: AAOx3 Cardio: RRR, no murmur Pulm: bilateral wheezing Gi: soft, nontender A/P COPD -continue Duonebs -taper Solu-Medrol -monitor pain control -Chest Xray on 12/17/18 showed hazy patchy right lLL atelectasis/infiltrate and trace BL pleural effusions -Chest Ct on 12/17/18 showed enlarged pulmonary artery consistent with pulmonary arterial HTN, no PE, small right pleural effusion, 4mm subpleural effusion, small pericardial effusion, small hiatal hernia/esophageal thickening. Objective - Vital Signs/Intake and Output Vital Signs (last 24 hours): Temp Pulse Resp BP Pulse Ox 98.0 F 100 H 18 168/69 H 95 12/22/18 07:00 12/22/18 12:59 12/22/18 07:00 12/22/18 07:00 12/22/18 07:00 Intake and Output: 12/22/18 12/22/18 06:59 18:59 Intake Total 480 260 Output Total 1050 400 Balance -570 -140 - Medications Medications: Current Medications Albuterol/Ipratropium (Duoneb 3 Mg/0.5 Mg (3 Ml) Ud) 3 ml INH RQ6 [facility] Last Admin: 12/22/18 14:21 Dose: 3 ml Apixaban (Eliquis) 2.5 mg PO BID [facility] Last Admin: 12/22/18 11:38 Dose: 2.5 mg Famotidine (Pepcid) 20 mg PO BID [facility] Last Admin: 12/22/18 11:39 Dose: 20 mg Hydromorphone HCl (Dilaudid) 1 mg IVP Q4H PRN PRN Reason: Pain, moderate (4-7) Last Admin: 12/22/18 12:40 Dose: 1 mg Methylprednisolone (Solu-Medrol) 40 mg IVP Q12H [facility] Last Admin: 12/22/18 05:57 Dose: 40 mg Nicotine (Nicoderm Cq) 1 patch TD DAILY [facility] Last Admin: 12/22/18 11:37 Dose: 1 patch Potassium Chloride (K-Dur 20 Meq Er Tab) 20 meq PO DAILY [facility] Last Admin: 12/22/18 11:39 Dose: 20 meq Senna/Docusate Sodium (Senokot S 50 Mg-8.6 Mg) 1 tab PO DAILY [facility] Last Admin: 12/22/18 11:39 Dose: 1 tab - Labs Labs: 12/21/18 07:27 12/21/18 07:27 PT 13.3 SECONDS (9.7-12.2) H 12/17/18 15:18 INR 1.2 12/17/18 15:18 APTT 31 SECONDS (21-34) 12/17/18 15:18 Assessment and Plan (1) COPD (chronic obstructive pulmonary disease) Status: Acute (2) Hemorrhagic pancreatitis Status: Acute
--- NOTE | 2018-12-22 21:43 | CP.PCM.PN ---
Subjective - Date & Time of Evaluation Date of Evaluation: 12/22/18 Time of Evaluation: 08:20 - Subjective Subjective: dictated Objective - Vital Signs/Intake and Output Vital Signs (last 24 hours): Temp Pulse Resp BP Pulse Ox 98.1 F 107 H 18 102/60 96 12/22/18 16:00 12/22/18 16:00 12/22/18 16:00 12/22/18 16:00 12/22/18 16:00 Intake and Output: 12/22/18 12/23/18 18:59 06:59 Intake Total 260 Output Total 900 Balance -640 - Medications Medications: Current Medications Albuterol/Ipratropium (Duoneb 3 Mg/0.5 Mg (3 Ml) Ud) 3 ml INH RQ6 [facility] Last Admin: 12/22/18 20:37 Dose: 3 ml Apixaban (Eliquis) 2.5 mg PO BID [facility] Last Admin: 12/22/18 18:09 Dose: 2.5 mg Famotidine (Pepcid) 20 mg PO BID [facility] Last Admin: 12/22/18 18:10 Dose: 20 mg Hydromorphone HCl (Dilaudid) 1 mg IVP Q4H PRN PRN Reason: Pain, moderate (4-7) Last Admin: 12/22/18 20:12 Dose: 1 mg Methylprednisolone (Solu-Medrol) 40 mg IVP Q12H [facility] Last Admin: 12/22/18 18:10 Dose: 40 mg Nicotine (Nicoderm Cq) 1 patch TD DAILY [facility] Last Admin: 12/22/18 11:37 Dose: 1 patch Potassium Chloride (K-Dur 20 Meq Er Tab) 20 meq PO DAILY [facility] Last Admin: 12/22/18 11:39 Dose: 20 meq Senna/Docusate Sodium (Senokot S 50 Mg-8.6 Mg) 1 tab PO DAILY [facility] Last Admin: 12/22/18 11:39 Dose: 1 tab - Labs Labs: 12/21/18 07:27 12/21/18 07:27 PT 13.3 SECONDS (9.7-12.2) H 12/17/18 15:18 INR 1.2 12/17/18 15:18 APTT 31 SECONDS (21-34) 12/17/18 15:18
--- NOTE | 2018-12-23 00:07 | CARD ---
APPROVED REPORT Date of service: 12/17/2018 EKG Measurement Heart [id number] <Conclusion> Sinus rhythm with short TN Rightward axis T wave abnormality, consider inferolateral ischemia Prolonged QT Abnormal ECG
[2018-12-23] MEDS: HYDROmorphone 1 mg/ml ISec IVP PRN ×6 (00:34→20:33)
--- NOTE | 2018-12-23 01:14 | PN ---
DATE: 12/22/2018 SUBJECTIVE: The patient is feeling better. She is status post MRCP and her MRCP was done after she was evaluated by Surgery, and she had peripancreatic inflammatory changes, which is consistent with pancreatitis and the patient has fluid collection in the sac, which is consistent with pseudocyst and she has pleural effusion. PHYSICAL EXAMINATION VITAL SIGNS: She is afebrile. Blood pressure 102/60, pulse 107, respiratory rate 18, temperature 98.1. LUNGS: Decreased air entry. CARDIOVASCULAR SYSTEM: S1 and S2, regular. ABDOMEN: Soft. ASSESSMENT: 1. Pancreatitis with pseudocyst. 2. Generalized ability. 3. Chronic obstructive pulmonary disease. PLAN: Physical therapy rehab, monitor the patient. Connor Baker MD
[2018-12-23] MEDS: Albuterol-Ipratrop 3 mg / 0.5 (3 ml) UD INH SCH ×4 (02:50→20:02)
[2018-12-23] MEDS: MethylPREDNISolone 40 mg Vial IVP SCH ×2 (05:30→18:10)
[2018-12-23 07:07] LABS: BASO % 0.3 % (0.0-2.0); HEMOGLOBIN 11.7 g/dL (11.0-16.0); LYMPH # 0.7 K/uL (1.0-4.3); LYMPH % 6.5 % (20.0-40.0); MEAN CORPUSCULAR HEMOGLOBIN 27.7 pg (27.0-31.0); MEAN CORPUSCULAR HGB CONC 31.8 g/dL (33.0-37.0); MEAN PLATELET VOLUME 8.1 fL (7.2-11.7); MONO % 10.1 % (0.0-10.0); NEUT # 8.4 K/uL (1.8-7.0); NEUT % 83.1 % (50.0-75.0); NRBC % 0.1 % (0.0-2.0); PLATELET COUNT 475 K/uL (130-400); RBC 4.23 Mil/uL (3.80-5.20); RED CELL DISTRIBUTION WIDTH 16.9 % (11.5-14.5); WHITE BLOOD COUNT 10.1 K/uL (4.8-10.8)
[2018-12-23 07:37] LABS: BLOOD UREA NITROGEN 22 mg/dL (7-17); CALCIUM 8.2 mg/dl (8.6-10.4); GFR NON-AFRICAN AMERICAN > 60
[2018-12-23 08:39] LABS: LYMPHOCYTE 2 % (20-40); MONOCYTE 3 % (0-10); NEUTROPHIL 95 % (50-75); TOTAL CELLS COUNTED 100
[2018-12-23 08:40] LABS: ANISOCYTOSIS SLIGHT; HYPOCHROMIC SLIGHT; PLATELET ESTIMATE SLIGHTLY INCREASED (NORMAL); POLYCHROMIC SLIGHT
[2018-12-23] MEDS: Docusate-Senna 50 mg-8.6 mg Tab PO SCH (09:13)
[2018-12-23] MEDS: LIPASE/PROTEASE/AMYLASE 21,000 U ECC PO SCH ×3 (09:14→18:05)
[2018-12-23] MEDS: Potassium Chloride 20 mEq ER Tab PO SCH (09:14)
[2018-12-23] MEDS: guaiFENesin 600 mg ER Tab PO SCH ×2 (12:15→18:05)
[2018-12-23] MEDS: Benzocaine/Menthol (Cepacol) Lozenge MT SCH ×3 (12:32→22:04)
--- NOTE | 2018-12-23 15:53 | CP.PCM.PN ---
Subjective - Date & Time of Evaluation Date of Evaluation: 12/23/18 Time of Evaluation: 13:00 - Subjective Subjective: Patient seen and examined at bedside, afebrile. Patient stated she is feeling better, denied SOB, chest pain. Physical Exam Gen: alert and awake, no acute distress Cardio: RRR, no murmur Pulm: b/l wheezing, no accessory muscle use GI: soft, nontender A&P 1. COPD - continue Duoneb taper solu-medrol monitor pain control Objective - Vital Signs/Intake and Output Vital Signs (last 24 hours): Temp Pulse Resp BP Pulse Ox 98.3 F 85 18 120/76 98 12/23/18 07:00 12/23/18 08:48 12/23/18 07:00 12/23/18 07:00 12/23/18 07:00 Intake and Output: 12/23/18 12/23/18 06:59 18:59 Intake Total 300 Output Total 300 600 Balance -300 -300 - Medications Medications: Current Medications Albuterol/Ipratropium (Duoneb 3 Mg/0.5 Mg (3 Ml) Ud) 3 ml INH RQ6 [facility] Last Admin: 12/23/18 13:41 Dose: 3 ml Apixaban (Eliquis) 2.5 mg PO BID [facility] Last Admin: 12/23/18 09:14 Dose: 2.5 mg Benzocaine/Menthol (Cepacol Sore Throat) 1 calin MT Q4 [facility] Last Admin: 12/23/18 12:32 Dose: 1 calin Famotidine (Pepcid) 20 mg PO BID [facility] Last Admin: 12/23/18 09:13 Dose: 20 mg Guaifenesin (Mucinex La) 600 mg PO BID [facility] Last Admin: 12/23/18 12:15 Dose: 600 mg Hydromorphone HCl (Dilaudid) 1 mg IVP Q4H PRN PRN Reason: Pain, moderate (4-7) Last Admin: 12/23/18 12:17 Dose: 1 mg Methylprednisolone (Solu-Medrol) 40 mg IVP Q12H [facility] Last Admin: 12/23/18 05:30 Dose: 40 mg Nicotine (Nicoderm Cq) 1 patch TD DAILY [facility] Last Admin: 12/23/18 09:14 Dose: 1 patch Potassium Chloride (K-Dur 20 Meq Er Tab) 20 meq PO DAILY [facility] Last Admin: 12/23/18 09:14 Dose: 20 meq Senna/Docusate Sodium (Senokot S 50 Mg-8.6 Mg) 1 tab PO DAILY [facility] Last Admin: 12/23/18 09:13 Dose: 1 tab - Labs Labs: 12/23/18 06:50 12/23/18 06:50 PT 13.3 SECONDS (9.7-12.2) H 12/17/18 15:18 INR 1.2 12/17/18 15:18 APTT 31 SECONDS (21-34) 12/17/18 15:18 Assessment and Plan (1) COPD (chronic obstructive pulmonary disease) Status: Acute (2) Hemorrhagic pancreatitis Status: Acute
[2018-12-23 17:35] VITALS: RESP 20
--- NOTE | 2018-12-23 20:56 | CP.PCM.PN ---
Subjective - Date & Time of Evaluation Date of Evaluation: 12/23/18 Time of Evaluation: 08:20 - Subjective Subjective: dictated Objective - Vital Signs/Intake and Output Vital Signs (last 24 hours): Temp Pulse Resp BP Pulse Ox 98.5 F 112 H 20 106/65 98 12/23/18 15:00 12/23/18 15:00 12/23/18 15:00 12/23/18 15:36 12/23/18 15:00 Intake and Output: 12/23/18 12/24/18 18:59 06:59 Intake Total 300 Output Total 600 Balance -300 - Medications Medications: Current Medications Albuterol/Ipratropium (Duoneb 3 Mg/0.5 Mg (3 Ml) Ud) 3 ml INH RQ6 [facility] Last Admin: 12/23/18 20:02 Dose: 3 ml Apixaban (Eliquis) 2.5 mg PO BID [facility] Last Admin: 12/23/18 18:05 Dose: 2.5 mg Benzocaine/Menthol (Cepacol Sore Throat) 1 calin MT Q4 [facility] Last Admin: 12/23/18 16:28 Dose: 1 calin Famotidine (Pepcid) 20 mg PO BID [facility] Last Admin: 12/23/18 18:05 Dose: 20 mg Guaifenesin (Mucinex La) 600 mg PO BID [facility] Last Admin: 12/23/18 18:05 Dose: 600 mg Hydromorphone HCl (Dilaudid) 1 mg IVP Q4H PRN PRN Reason: Pain, moderate (4-7) Last Admin: 12/23/18 20:33 Dose: 1 mg Methylprednisolone (Solu-Medrol) 40 mg IVP Q12H [facility] Last Admin: 12/23/18 18:10 Dose: 40 mg Nicotine (Nicoderm Cq) 1 patch TD DAILY [facility] Last Admin: 12/23/18 09:14 Dose: 1 patch Potassium Chloride (K-Dur 20 Meq Er Tab) 20 meq PO DAILY [facility] Last Admin: 12/23/18 09:14 Dose: 20 meq Senna/Docusate Sodium (Senokot S 50 Mg-8.6 Mg) 1 tab PO DAILY [facility] Last Admin: 12/23/18 09:13 Dose: 1 tab - Labs Labs: 12/23/18 06:50 12/23/18 06:50 PT 13.3 SECONDS (9.7-12.2) H 12/17/18 15:18 INR 1.2 12/17/18 15:18 APTT 31 SECONDS (21-34) 12/17/18 15:18
--- NOTE | 2018-12-23 22:03 | PN ---
DATE: 12/23/2018 LOCATION: 653, bed B. SUBJECTIVE: This 58-year-old female seen and examined in rounds early today without significant clinical changes or reported active bleeding but recurrent episode of abdominal pain on and off. The entire chart is reviewed including but not limited to the most recent lab and radiology study results, current and previous medication list, current and previous medical events. Case discussed with the staff at length. On record, the patient had an MRI yesterday as per my request. The official report is seen with a focal fluid collection measuring about 1.6 x 4.5 cm in the lesser sac consistent with a pseudocyst, with small right pleural effusion, status post cholecystectomy. LABORATORY DATA: Today's lab results showed normal CBC but thrombocytosis of 475. Sodium 129, CO2 content of 38 indicative of respiratory alkalosis, BUN 22 with low creatinine as well as low calcium of 8.2. PHYSICAL EXAMINATION: GENERAL: A 58-year-old female. VITAL SIGNS: Afebrile with a pulse of 80, respiratory rate 20-22, blood pressure 124/74. HEENT: Shows dry mucoid membrane, nonicteric sclerae. LUNGS: Few scattered crepitation. Decreased air entry at bases. HEART: Positive S1 and S2. ABDOMEN: Soft with mild generalized tenderness but mainly in the midepigastric area. No mass or organomegaly. No rebound tenderness or guarding. EXTREMITIES: Without significant clubbing, cyanosis or edema. NEUROLOGIC: No reported new neurological deficit, sensory or motor. On record, the patient had intermittent period of wheezing bilaterally. IMPRESSION: 1. Recurrent acute pancreatitis. 2. 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 3. Re-exacerbation of chronic obstructive pulmonary disease. 4. Reported history of deep venous thrombosis and depression. 5. Anemia by recent history despite blood transfusion. 6. Electrolyte imbalance with hypocalcemia and hyponatremia secondary to above. 7. Reported history of status post cholecystectomy. SUGGESTIONS: 1. Continue current management. 2. Endoscopic evaluation of the upper GI tract if the patient's symptoms persist. 3. Surgical reevaluation. 4. Further recommendation to follow. Yin Patel MD
[2018-12-24] MEDS: Albuterol-Ipratrop 3 mg / 0.5 (3 ml) UD INH SCH ×4 (01:13→19:15)
--- NOTE | 2018-12-24 01:31 | PN ---
DATE: 12/23/2018 SUBJECTIVE: The patient is anxious. The patient is for subacute rehab. She is afebrile. No shortness of breath. She is on oxygen. No nausea or vomiting. PHYSICAL EXAMINATION: VITAL SIGNS: Blood pressure 106/65, pulse 112, respiratory rate 20, and temperature 98.5. LUNGS: Decreased air entry. Positive rhonchi. CARDIOVASCULAR SYSTEM: S1, S2, regular. ABDOMEN: Soft. ASSESSMENT: 1. Hemorrhagic necrotizing pancreatitis. 2. Chronic obstructive pulmonary disease. 3. Anxiety and depression. PLAN: Subacute rehab. Monitor the patient. Connor Baker MD
[2018-12-24] MEDS: Benzocaine/Menthol (Cepacol) Lozenge MT SCH ×6 (02:02→20:34)
[2018-12-24] MEDS: HYDROmorphone 1 mg/ml ISec IVP PRN ×5 (05:28→21:20)
[2018-12-24] MEDS: MethylPREDNISolone 40 mg Vial IVP SCH ×2 (05:28→17:39)
[2018-12-24] MEDS: LIPASE/PROTEASE/AMYLASE 21,000 U ECC PO SCH ×3 (08:33→17:40)
[2018-12-24] MEDS: Docusate-Senna 50 mg-8.6 mg Tab PO SCH (09:30)
[2018-12-24] MEDS: guaiFENesin 600 mg ER Tab PO SCH ×2 (09:30→17:40)
[2018-12-24] MEDS: Potassium Chloride 20 mEq ER Tab PO SCH (09:31)
--- NOTE | 2018-12-24 13:41 | PN ---
DATE: 12/24/2018 LOCATION: 653, bed B. SUBJECTIVE: This is a 58-year-old female seen and examined in rounds, intermittent periods again of abdominal pain with mid shortness of breath, but no chest pain, palpitations and no reported active GI bleeding but postprandial abdominal distention. The entire chart is reviewed including but not limited to the most recent lab and radiology study results. The recent MRI report seen. PHYSICAL EXAMINATION: GENERAL: A 58-year-old female. VITAL SIGNS: Afebrile with a pulse of 68, respiratory rate 20-22, blood pressure 110/64. HEENT: Shows pale, dry mucoid membrane, nonicteric sclerae. LUNGS: Few scattered crepitation. Decreased air entry at bases. HEART: Positive S1 and S2. ABDOMEN: Soft with mild generalized tenderness. No mass or organomegaly. No rebound tenderness or guarding. EXTREMITIES: Without significant clubbing, cyanosis or edema. NEUROLOGIC: No reported new neurological deficits, sensory or motor. IMPRESSION: 1. Acute pancreatitis, on top of chronic pancreatitis. 2. Abnormal magnetic resonance cholangiopancreatography with possible pseudocyst of the pancreas. 3. Re-exacerbation of chronic obstructive pulmonary disease. 4. Re-exacerbation of peptic ulcer disease. 5. History of deep venous thrombosis. 6. Depression. 7. Electrolyte imbalance with hypocalcemia most likely secondary to above. 8. Anemia most likely secondary to above. 9. Reported history of status post cholecystectomy. SUGGESTIONS: 1. Continue current management. 2. Again the patient would need endoscopic evaluation of the upper GI tract to rule out possible gastric versus duodenal ulcer. 3. Surgical reevaluation. 4. pancreatic pseudocyst. 5. Further evaluation to follow. Yin Patel MD
--- NOTE | 2018-12-24 22:43 | CP.PCM.PN ---
Subjective - Date & Time of Evaluation Date of Evaluation: 12/24/18 Time of Evaluation: 19:40 - Subjective Subjective: dictated Objective - Vital Signs/Intake and Output Vital Signs (last 24 hours): Temp Pulse Resp BP Pulse Ox 98.1 F 111 H 20 109/68 100 12/24/18 16:00 12/24/18 16:00 12/24/18 16:00 12/24/18 16:00 12/24/18 17:49 Intake and Output: 12/24/18 12/25/18 18:59 06:59 Intake Total 360 480 Output Total 600 400 Balance -240 80 - Medications Medications: Current Medications Albuterol/Ipratropium (Duoneb 3 Mg/0.5 Mg (3 Ml) Ud) 3 ml INH RQ6 [facility] Last Admin: 12/24/18 19:15 Dose: 3 ml Apixaban (Eliquis) 2.5 mg PO BID [facility] Last Admin: 12/24/18 17:40 Dose: 2.5 mg Benzocaine/Menthol (Cepacol Sore Throat) 1 calin MT Q4 [facility] Last Admin: 12/24/18 20:34 Dose: Not Given Famotidine (Pepcid) 20 mg PO BID [facility] Last Admin: 12/24/18 17:40 Dose: 20 mg Guaifenesin (Mucinex La) 600 mg PO BID [facility] Last Admin: 12/24/18 17:40 Dose: 600 mg Hydromorphone HCl (Dilaudid) 1 mg IVP Q4H PRN PRN Reason: Pain, moderate (4-7) Last Admin: 12/24/18 21:20 Dose: 1 mg Methylprednisolone (Solu-Medrol) 40 mg IVP Q12H [facility] Last Admin: 12/24/18 17:39 Dose: 40 mg Nicotine (Nicoderm Cq) 1 patch TD DAILY [facility] Last Admin: 12/24/18 10:33 Dose: 1 patch Potassium Chloride (K-Dur 20 Meq Er Tab) 20 meq PO DAILY [facility] Last Admin: 12/24/18 09:31 Dose: 20 meq Senna/Docusate Sodium (Senokot S 50 Mg-8.6 Mg) 1 tab PO DAILY [facility] Last Admin: 12/24/18 09:30 Dose: 1 tab - Labs Labs: 12/23/18 06:50 12/23/18 06:50 PT 13.3 SECONDS (9.7-12.2) H 12/17/18 15:18 INR 1.2 12/17/18 15:18 APTT 31 SECONDS (21-34) 12/17/18 15:18
[2018-12-25] MEDS: Albuterol-Ipratrop 3 mg / 0.5 (3 ml) UD INH SCH ×3 (01:21→14:30)
[2018-12-25] MEDS: HYDROmorphone 1 mg/ml ISec IVP PRN ×5 (01:29→17:35)
--- NOTE | 2018-12-25 01:50 | PN ---
DATE: 12/24/2018 SUBJECTIVE: The patient is feeling better. She is more alert. She is anxious. No nausea, vomiting. No chest pain. PHYSICAL EXAMINATION: VITAL SIGNS: Blood pressure 109/68, pulse 111, respiratory rate 20, temperature 98.1. LUNGS: Clear. CARDIOVASCULAR SYSTEM: S1 and S2, regular. ABDOMEN: Soft. ASSESSMENT: 1. Pancreatitis, pancreatic insufficiency, necrotizing pancreatitis. 2. Dehydration. 3. Chronic obstructive pulmonary disease. 4. Deep venous thrombosis. PLAN: Medical management. Monitor the patient. Connor Baker MD
[2018-12-25] MEDS: Benzocaine/Menthol (Cepacol) Lozenge MT SCH ×5 (04:00→17:30)
[2018-12-25] MEDS: MethylPREDNISolone 40 mg Vial IVP SCH (05:29)
[2018-12-25] MEDS: LIPASE/PROTEASE/AMYLASE 21,000 U ECC PO SCH ×2 (08:22→14:22)
[2018-12-25] MEDS: guaiFENesin 600 mg ER Tab PO SCH (09:21)
[2018-12-25] MEDS: Docusate-Senna 50 mg-8.6 mg Tab PO SCH (09:22)
[2018-12-25] MEDS: Potassium Chloride 20 mEq ER Tab PO SCH (09:22)
--- NOTE | 2018-12-25 11:42 | CP.PCM.PN ---
Subjective - Date & Time of Evaluation Date of Evaluation: 12/25/18 Time of Evaluation: 09:00 - Subjective Subjective: Patient seen and examined at bedside She is afebrile with saturation of 97% on room air Patient states pain and breathing has improved. Physical Exam Gen: AAOx3 Cardio: RRR, no murmur Pulm: bilateral wheezing, congested Gi: soft, nontender A/P COPD -continue Duonebs -prednisone -monitor pain control Objective - Vital Signs/Intake and Output Vital Signs (last 24 hours): Temp Pulse Resp BP Pulse Ox 98.2 F 100 H 20 100/65 99 12/25/18 07:00 12/25/18 07:00 12/25/18 07:00 12/25/18 07:00 12/25/18 07:00 Intake and Output: 12/25/18 12/25/18 06:59 18:59 Intake Total 600 Output Total 1000 Balance -400 - Medications Medications: Current Medications Albuterol/Ipratropium (Duoneb 3 Mg/0.5 Mg (3 Ml) Ud) 3 ml INH RQ6 [facility] Last Admin: 12/25/18 08:36 Dose: 3 ml Apixaban (Eliquis) 2.5 mg PO BID [facility] Last Admin: 12/25/18 09:22 Dose: 2.5 mg Benzocaine/Menthol (Cepacol Sore Throat) 1 calin MT Q4 [facility] Last Admin: 12/25/18 11:12 Dose: Not Given Famotidine (Pepcid) 20 mg PO BID [facility] Last Admin: 12/25/18 09:22 Dose: 20 mg Guaifenesin (Mucinex La) 600 mg PO BID [facility] Last Admin: 12/25/18 09:21 Dose: 600 mg Hydromorphone HCl (Dilaudid) 1 mg IVP Q4H PRN PRN Reason: Pain, moderate (4-7) Last Admin: 12/25/18 09:34 Dose: 1 mg Methylprednisolone (Solu-Medrol) 40 mg IVP Q12H [facility] Last Admin: 12/25/18 05:29 Dose: 40 mg Nicotine (Nicoderm Cq) 1 patch TD DAILY [facility] Last Admin: 12/25/18 09:22 Dose: 1 patch Potassium Chloride (K-Dur 20 Meq Er Tab) 20 meq PO DAILY [facility] Last Admin: 12/25/18 09:22 Dose: 20 meq Senna/Docusate Sodium (Senokot S 50 Mg-8.6 Mg) 1 tab PO DAILY [facility] Last Admin: 12/25/18 09:22 Dose: 1 tab - Labs Labs: 12/23/18 06:50 12/23/18 06:50 PT 13.3 SECONDS (9.7-12.2) H 12/17/18 15:18 INR 1.2 12/17/18 15:18 APTT 31 SECONDS (21-34) 12/17/18 15:18 Assessment and Plan (1) COPD (chronic obstructive pulmonary disease) Status: Acute (2) Hemorrhagic pancreatitis Status: Acute
[2018-12-25 17:22] VITALS: BP 106/69; PULSE 116; TEMP 98; O2SAT 97
--- NOTE | 2018-12-25 17:58 | PN ---
DATE: 12/25/2018 LOCATION: 653, bed B. SUBJECTIVE: This 58-year-old female was seen and examined in rounds without significant clinical changes, but with intermittent periods of abdominal pain. The entire chart is reviewed including but not limited to the most recent lab and radiology study results and today's lab is still pending. However, the patient is still having low sodium, low creatinine and low calcium as well as low total protein and albumin. PHYSICAL EXAMINATION: GENERAL: A 58-year-old female, denying any actual chest pain, palpitation or evidence of active GI bleeding, but recurrent episodes of nausea and dyspepsia. VITAL SIGNS: Afebrile with a pulse of 98, respiratory rate 20-22, blood pressure 108/70. HEENT: Shows pale, dry oral mucoid membrane, nonicteric sclerae. LUNGS: Few scattered crepitation. Decreased air entry at bases. HEART: Positive S1 and S2. ABDOMEN: Soft with mild generalized tenderness. No mass or organomegaly. No rebound tenderness or guarding. EXTREMITIES: Without significant clubbing, cyanosis or edema. NEUROLOGIC: No reported new neurological deficits, sensory or motor. IMPRESSION: 1. Acute on top of chronic pancreatitis with possible hemorrhagic pancreatitis. 2. Abnormal MRI of the abdomen with possible pseudocyst of the pancreas. 3. Re-exacerbation of gastric ulcer disease. 4. Re-exacerbation of chronic obstructive pulmonary disease, improving clinically. 5. History of depression. 6. History of deep venous thrombosis. 7. Electrolyte imbalance secondary to above. 8. Anemia ____ gastrointestinal blood loss upper versus lower. 9. Leukocytosis by recent history. SUGGESTIONS: 1. Continue current management. 2. The patient may need endoscopic evaluation of the upper GI tract, if there is subsequent and persistent abdominal pain and drop of hemoglobin and hematocrit. Yin Patel MD
--- NOTE | 2018-12-25 20:46 | CP.PCM.DIS ---
Provider - Provider Date of Admission: 12/17/18 18:17 Attending physician: Connor Baker MD Consults: 12/17/18 21:07 Pulmonology Consult Routine Comment: Consulting Provider: Romie Lucero Consulting Physician: Romie Lucero Reason for Consult: copd 12/18/18 09:28 Gastroenterology Consult Routine Comment: Consulting Provider: Yin Olson Consulting Physician: Yin Olson Reason for Consult: pancreatitis 12/21/18 10:10 Physician Consult Routine Comment: Consulting Provider: José Manuel Gamboa Consulting Physician: José Manuel Gamboa Reason for Consult: pancretitis, pseudo cyst Time Spent in preparation of Discharge (in minutes): 30 Hospital Course - Lab Results Lab Results: Micro Results 12/17/18 16:40 Blood Blood Culture - Final NO GROWTH AFTER 5 DAYS 12/17/18 16:40 Blood Gram Stain - Final TEST NOT PERFORMED 12/17/18 15:19 Blood Blood Culture - Final NO GROWTH AFTER 5 DAYS 12/17/18 15:19 Blood Gram Stain - Final TEST NOT PERFORMED 12/17/18 15:14 Urine Random Urine Culture - Final No Growth (<1,000 CFU/ML) Most Recent Lab Values WBC 10.1 K/uL (4.8-10.8) 12/23/18 06:50 RBC 4.23 Mil/uL (3.80-5.20) 12/23/18 06:50 Hgb 11.7 g/dL (11.0-16.0) 12/23/18 06:50 Hct 36.8 % (34.0-47.0) 12/23/18 06:50 MCV 87.0 fL (81.0-99.0) 12/23/18 06:50 MCH 27.7 pg (27.0-31.0) 12/23/18 06:50 MCHC 31.8 g/dL (33.0-37.0) L 12/23/18 06:50 RDW 16.9 % (11.5-14.5) H 12/23/18 06:50 Plt Count 475 K/uL (130-400) H 12/23/18 06:50 MPV 8.1 fL (7.2-11.7) 12/23/18 06:50 Neut % (Auto) 83.1 % (50.0-75.0) H 12/23/18 06:50 Lymph % (Auto) 6.5 % (20.0-40.0) L 12/23/18 06:50 [place] % (Auto) 10.1 % (0.0-10.0) H 12/23/18 06:50 Eos % (Auto) 0.0 % (0.0-4.0) 12/23/18 06:50 Baso % (Auto) 0.3 % (0.0-2.0) 12/23/18 06:50 Neut # (Auto) 8.4 K/uL (1.8-7.0) H 12/23/18 06:50 Lymph # (Auto) 0.7 K/uL (1.0-4.3) L 12/23/18 06:50 [place]ala # (Auto) 1.0 K/uL (0.0-0.8) H 12/23/18 06:50 Eos # (Auto) 0.0 K/uL (0.0-0.7) 12/23/18 06:50 Baso # (Auto) 0.0 K/uL (0.0-0.2) 12/23/18 06:50 Neutrophils % (Manual) 95 % (50-75) H 12/23/18 06:50 Lymphocytes % (Manual) 2 % (20-40) L 12/23/18 06:50 Monocytes % (Manual) 3 % (0-10) 12/23/18 06:50 Platelet Estimate Slightly increased (NORMAL) H 12/23/18 06:50 Polychromasia Slight 12/23/18 06:50 Hypochromasia (manual) Slight 12/23/18 06:50 Anisocytosis (manual) Slight 12/23/18 06:50 PT 13.3 SECONDS (9.7-12.2) H 12/17/18 15:18 INR 1.2 12/17/18 15:18 APTT 31 SECONDS (21-34) 12/17/18 15:18 Puncture Site Rrdial 12/17/18 15:20 pCO2 49 mm/Hg (35-45) H 12/17/18 15:20 pO2 60 mm/Hg (80-100) L 12/17/18 15:20 HCO3 30.9 mmol/L (21-28) H 12/17/18 15:20 ABG pH 7.44 (7.35-7.45) 12/17/18 15:20 ABG Total CO2 34.8 mmol/L (22-28) H 12/17/18 15:20 ABG O2 Saturation 93.8 % (95-98) L 12/17/18 15:20 ABG Base Excess 7.8 mmol/L (-2.0-3.0) H 12/17/18 15:20 Eric Test Pos 12/17/18 15:20 ABG Potassium 3.3 mmol/L (3.6-5.2) L 12/17/18 15:20 Sodium 134.0 mmol/l (132-148) 12/17/18 15:20 Chloride 96.0 mmol/L (98-107) L 12/17/18 15:20 Glucose 76 mg/dl (65-105) 12/17/18 15:20 Lactate 1.5 mmol/L (0.7-2.1) 12/17/18 15:20 Sodium 129 mmol/L (132-148) L 12/23/18 06:50 Potassium 4.9 mmol/L (3.6-5.2) 12/23/18 06:50 Chloride 89 mmol/L (98-107) L 12/23/18 06:50 Carbon Dioxide 38 mmol/L (22-30) H 12/23/18 06:50 Anion Gap 6 (10-20) L 12/23/18 06:50 BUN 22 mg/dL (7-17) H 12/23/18 06:50 Creatinine 0.4 mg/dL (0.7-1.2) L 12/23/18 06:50 Est GFR ( Amer) > 60 12/23/18 06:50 Est GFR (Non-Af Amer) > 60 12/23/18 06:50 POC Glucose (mg/dL) 71 mg/dL (65-110) 12/17/18 15:36 Random Glucose 89 mg/dL (65-105) 12/23/18 06:50 Calcium 8.2 mg/dl (8.6-10.4) L 12/23/18 06:50 Magnesium 2.0 mg/dL (1.6-2.3) 12/23/18 06:50 Total Bilirubin 0.6 mg/dL (0.2-1.3) 12/18/18 11:30 AST 34 U/L (14-36) 12/18/18 11:30 ALT 19 U/L (9-52) 12/18/18 11:30 Alkaline Phosphatase 67 U/L (38-126) 12/18/18 11:30 Total Creatine Kinase 97 U/L (30-135) 12/17/18 15:18 CK-MB (Mass) 5.74 ng/mL (0.0-3.38) H 12/17/18 15:18 Troponin I < 0.0120 ng/mL (0.00-0.120) 12/17/18 15:18 NT-Pro-B Natriuret Pep 8550 pg/mL (0-900) H 12/17/18 15:18 Total Protein 5.1 g/dL (6.3-8.3) L 12/18/18 11:30 Albumin 2.6 g/dL (3.5-5.0) L 12/18/18 11:30 Globulin 2.5 gm/dL (2.2-3.9) 12/18/18 11:30 Albumin/Globulin Ratio 1.0 (1.0-2.1) 12/18/18 11:30 Triglycerides 54 mg/dL (0-149) D 12/19/18 11:46 Cholesterol 140 mg/dL (0-199) 12/19/18 11:46 LDL Cholesterol Direct 81 mg/dL (0-129) 12/19/18 11:46 HDL Cholesterol 52 mg/dL (30-70) 12/19/18 11:46 Lipase 230 U/L (23-300) 12/19/18 11:46 Arterial Blood Potassium 3.3 mmol/L (3.6-5.2) L 12/17/18 15:20 Urine Color Yellow (YELLOW) 12/17/18 16:43 Urine Clarity Clear (Clear) 12/17/18 16:43 Urine pH 6.0 (5.0-8.0) 12/17/18 16:43 Ur Specific [place] 1.011 (1.003-1.030) 12/17/18 16:43 Urine Protein Negative mg/dL (NEGATIVE) 12/17/18 16:43 Urine Glucose (UA) Normal mg/dL (Normal) 12/17/18 16:43 Urine Ketones 1+ mg/dL (NEGATIVE) H 12/17/18 16:43 Urine Blood 1+ (NEGATIVE) H 12/17/18 16:43 Urine Nitrate Negative (NEGATIVE) 12/17/18 16:43 Urine Bilirubin Negative (NEGATIVE) 12/17/18 16:43 Urine Urobilinogen Normal mg/dL (0.2-1.0) 12/17/18 16:43 Ur Leukocyte Esterase 2+ Nimesh/uL (Negative) H 12/17/18 16:43 Urine WBC (Auto) 7 /hpf (0-5) H 12/17/18 16:43 Urine RBC (Auto) 4 /hpf (0-3) H 12/17/18 16:43 Urine Bacteria Rare (<OCC) 12/17/18 16:43 Discharge Exam - Head Exam Head Exam: ATRAUMATIC, NORMOCEPHALIC Discharge Plan - Discharge Medications Prescriptions: predniSONE [predniSONE Tab] 20 mg PO DAILY #12 tab - Follow Up Plan Condition: FAIR Disposition: REHAB FACILITY/REHAB UNIT Instructions: Heart Healthy Diet, Heart Failure, Adult (DC), [place] Diet, Shortness of Breath (Dyspnea) (DC), Pleural Effusion (DC), Pancreatitis (DC) Additional Instructions: Please admit patient under Dr. baker service- Please Call Dr. Baker upon patient arrival to the facility Please continue medication as per Med. rec. Please use oxygen as needed to keep spo2 greator than 93% Referrals: Connor Baker MD [Staff Provider] -
--- NOTE | 2018-12-26 05:05 | DS ---
DISCHARGE DIAGNOSES: 1. Generalized debility, difficulty walking. 2. Chronic obstructive pulmonary disease. 3. Acute on chronic necrotizing hemorrhagic pancreatitis. 4. Anxiety and depression. HISTORY OF PRESENT ILLNESS: This is a 58-year-old female with history of chronic recurrent pancreatitis, anxiety, depression, COPD, pancreatic insufficiency, malnourished, compliant with diet and medication, came in because of abdominal pain, nausea, and vomiting. She was evaluated by Surgery. MRCP of the abdomen showed pancreatitis, necrosis, and hemorrhage. The patient improved. She is for physical therapy. Her condition is stable upon discharge. She will be followed up as outpatient. PHYSICAL EXAMINATION: VITAL SIGNS: Blood pressure 106/69, pulse 116, respiratory rate 20, temperature 98. LUNGS: Decreased air entry. Positive rhonchi. PLAN: Discharge the patient to subacute rehab. Monitor the patient. Connor Baker MD
== END 2018-12-25 17:49 | DRG 190 ==
LOC: C.ER 14:01 → C.6T 18:17
PROVIDERS: ADMIT Internal Medicine; ATTEND Internal Medicine
DX: J44.1 Chronic obstructive pulmonary disease with (acute) exacerbation (principal); K85.90 Acute pancreatitis without necrosis or infection, unspecified; E46 Unspecified protein-calorie malnutrition; K86.1 Other chronic pancreatitis; K25.3 Acute gastric ulcer without hemorrhage or perforation; D64.9 Anemia, unspecified; E83.51 Hypocalcemia; E87.6 Hypokalemia; R53.81 Other malaise; F41.9 Anxiety disorder, unspecified; F32.9 Major depressive disorder, single episode, unspecified; F17.210 Nicotine dependence, cigarettes, uncomplicated; R26.2 Difficulty in walking, not elsewhere classified; I27.20 Pulmonary hypertension, unspecified; Z79.01 Long term (current) use of anticoagulants; Z86.718 Personal history of other venous thrombosis and embolism; Z99.81 Dependence on supplemental oxygen; Z90.49 Acquired absence of other specified parts of digestive tract

== ENCOUNTER 2018-12-29 19:54 | Inpatient (IN) | payer MEDICARE ==
[2018-12-29 19:54] VITALS: BMI 13.7
[2018-12-29] MEDS ORDERED: Vancomycin 1 gm/NS 200 ml 1 GM/200 ML BAG IVPB STA (20:15)
[2018-12-29] MEDS ORDERED: Sodium Chloride 0.9% 1,000 ML IV ONE (20:15)
[2018-12-29] MEDS ORDERED: Piperacillin/Tazobact 3.375 gm 100 ML IVPB STA (20:15)
[2018-12-29] MEDS ORDERED: Albuterol-Ipratrop 3 mg / 0.5 (3 ml) UD INH STA ×2 (20:17→20:18)
[2018-12-29] MEDS ORDERED: MethylPREDNISolone 40 mg Vial IVP STA (20:17)
--- NOTE | 2018-12-29 20:26 | C.PDOC ---
History Of Present Illness 58 year old female with Hx of COPD, pancreatitis, DVT on eliquis, malnourished, pleural effusion, sent from senior living for complaint of fever, cough, and abdominal pain. Patient found to be febrile on arrival. Of note, patient rec ently had prolonged hospital course, discharged 4 days ago. Reports mild abdominal pain at this time, is chronically ill appearing but no other complaints at this time. Time Seen by Provider: 12/29/18 20:07 Chief Complaint (Nursing): Fever History Per: Patient History/Exam Limitations: no limitations Onset/Duration Of Symptoms: Days Current Symptoms Are (Timing): Still Present Location Of Pain: None Sick Contacts (Context): None Associated Symptoms: Fever, Cough, Other (Abdominal pain) Ear Symptoms: Bilateral: None Recent travel outside of the [place]: No Past Medical History Reviewed: Historical Data, Nursing Documentation, Vital Signs Vital Signs: Last Vital Signs Temp 101.6 F H 12/29/18 20:03 Pulse 129 H 12/29/18 20:03 Resp 20 12/29/18 20:03 BP 91/64 L 12/29/18 20:03 Pulse Ox 96 12/29/18 20:03 - Medical History PMH: CHF, COPD, Depression, Deep Vein Thrombosis, Gall Bladder Disease (Cholelithiasis), Pancreatitis, Pneumonia (CHILDHOOD) Denies: Anxiety, Chronic Kidney Disease Surgical History: Cholecystectomy, Endoscopy - [facility] Procedures ASSISTANCE WITH RESPIRATORY VENTILATION, >96 HRS, CPAP (11/30/18) DRAINAGE OF RIGHT PLEURAL CAVITY, PERC APPROACH, DIAGN (09/09/17) EXCISION OF SMALL INTESTINE, ENDO, DIAGN (09/09/17) FLUOROSCOPY OF GALLBLADDER & BILE DUCT USING L OSM CONTRAST (06/23/17) INSERT INTERCOSTAL CATH (11/15/13) NON-INVASIVE MECHANICAL VENTILATION (11/15/13) PARENTERAL INFUSION OF CONCENTRATED NUT. SUBSTANCE (11/15/13) RELEASE PELVIC SUBCU/FASCIA, PERC APPROACH (06/23/17) RESECTION OF GALLBLADDER, PERCUTANEOUS ENDOSCOPIC APPROACH (06/23/17) THORACOSCOPIC DECORTICATION OF LUNG (11/15/13) TRANSFUSE NONAUT FROZEN PLASMA IN PERIPH VEIN, PERC (11/30/18) TRANSFUSE NONAUT RED BLOOD CELLS IN PERIPH VEIN, PERC (11/30/18) Family History: States: Unknown Family Hx - Social History Hx Tobacco Use: Yes Hx Alcohol Use: No Hx Substance Use: No - Immunization History Hx Tetanus Toxoid Vaccination: No Hx Influenza Vaccination: No Hx Pneumococcal Vaccination: No Review Of Systems Constitutional: Positive for: Fever Cardiovascular: Negative for: Chest Pain, Palpitations Respiratory: Positive for: Cough. Negative for: Shortness of Breath Gastrointestinal: Positive for: Abdominal Pain. Negative for: Nausea, Vomiting, Diarrhea Genitourinary: Negative for: Dysuria, Hematuria Neurological: Negative for: Weakness, Numbness Physical Exam - Physical Exam Appears: Chronically Ill, Other (Cachetic) Skin: Normal Color, Warm, Dry Head: Atraumatic, Normacephalic Eye(s): bilateral: Normal Inspection Oral Mucosa: Moist Neck: Normal, Supple Chest: Symmetrical, No Tenderness Cardiovascular: Rhythm Regular Respiratory: Rales (Right base), No Rhonchi, Other (Diminished sounds) Gastrointestinal/Abdominal: Soft, Tenderness (Mildly, nonfocal), No Guarding, No Rebound Neurological/Psych: Oriented x3, Normal Speech ED Course And Treatment - Laboratory Results Result Diagrams: 12/29/18 20:36 12/29/18 20:36 ECG: Interpreted By Me, Viewed By Me ECG Rhythm: Sinus Tachycardia ECG Interpretation: No Changes From Prior Interpretation Of ECG: Nonspecific ST/T wave changes Rate From EC O2 Sat by Pulse Oximetry: 96 (Room air) Pulse Ox Interpretation: Normal Medical Decision Making Medical Decision Making: ro sepsis influenza abdominal pathology Plan: * EKG * Blood work * CXR * Urinalysis * Flu swab * Zosyn * Vancomycin * IV fluids * Albuterol influenza pos. tamiflu given. empriic antibiotics given as pt meets sepsis criteria. la neg. ct no acute findings. nebs steriods given. accpeted dr baker. Disposition - Disposition Disposition: HOSPITALIZED Disposition Time: 12:00 Condition: CRITICAL - Clinical Impression Clinical Impression: Sepsis, Influenza, COPD (chronic obstructive pulmonary disease) - Scribe Statement The provider has reviewed the documentation as recorded by the Scribe Beto Mcdermott All medical record entries made by the Scribe were at my direction and personally dictated by me. I have reviewed the chart and agree that the record accurately reflects my personal performance of the history, physical exam, medical decision making, and the department course for this patient. I have also personally directed, reviewed, and agree with the discharge instructions and disposition. Decision To Admit - Pt Status Changed To: Hospital Disposition Of: Inpatient - Admit Certification Admit to Inpatient:: After my assessment, the patient will require hospitalization for at least two midnights. This is because of the severity of symptoms shown, intensity of services needed, and/or the medical risk in this patient being treated as an outpatient. - InPatient: Physician Admission Certification:: need iv antibiotics - . Bed Request Type: Telemetry Admitting Physician: Connor Baker Patient Diagnosis: Sepsis, Influenza, COPD (chronic obstructive pulmonary disease)
[2018-12-29 20:41] LABS: BASO % 0.1 % (0.0-2.0); EOS % 0.1 % (0.0-4.0); HEMOGLOBIN 13.2 g/dL (11.0-16.0); LYMPH # 0.6 K/uL (1.0-4.3); LYMPH % 4.2 % (20.0-40.0); MEAN CELL VOLUME 85.8 fL (81.0-99.0); MEAN CORPUSCULAR HGB CONC 31.5 g/dL (33.0-37.0); MEAN PLATELET VOLUME 8.1 fL (7.2-11.7); MONO # 0.7 K/uL (0.0-0.8); MONO % 4.7 % (0.0-10.0); NEUT # 12.8 K/uL (1.8-7.0); NEUT % 90.9 % (50.0-75.0); NRBC % 0.1 % (0.0-2.0); PLATELET COUNT 331 K/uL (130-400); RBC 4.89 Mil/uL (3.80-5.20); RED CELL DISTRIBUTION WIDTH 17.5 % (11.5-14.5)
[2018-12-29 20:46] LABS: VENOUS BLOOD GAS BASE EXCESS -9.5 mmol/L (0.0-2.0); VENOUS BLOOD GAS PCO2 23 mmHg (40-60); VENOUS BLOOD GAS PO2 80 mm/Hg (30-55); VENOUS BLOOD PH 7.38 (7.32-7.43)
[2018-12-29] MEDS ORDERED: Sodium Chloride 0.9% 1,000 ML ONE (20:46)
[2018-12-29] MEDS ORDERED: Vancomycin 1 GM 1 GM/250 ML BAG IVPB ONE (20:46)
[2018-12-29] MEDS ORDERED: Piperacillin/Tazobact 3.375 gm 100 ML IVPB ONE (20:46)
[2018-12-29] MEDS ORDERED: Albuterol-Ipratrop 3 mg / 0.5 (3 ml) UD ONE (20:55)
[2018-12-29 21:05] LABS: B-TYPE NATRIURETIC PEPTIDE 1580 pg/mL (0-900)
[2018-12-29] MEDS ORDERED: Vancomycin 1 GM 1 GM/250 ML BAG IVPB STA (21:05)
[2018-12-29 21:06] LABS: INR 1.2; PROTHROMBIN TIME 13.5 SECONDS (9.7-12.2)
[2018-12-29 21:12] LABS: ALB/GLOB RATIO 1.4 (1.0-2.1); ALT/SGPT 56 U/L (9-52); AST/SGOT 41 U/L (14-36); BLOOD UREA NITROGEN 24 mg/dL (7-17); CALCIUM 8.8 mg/dl (8.6-10.4); GFR NON-AFRICAN AMERICAN > 60; LIPASE 463 U/L (23-300)
[2018-12-29] MEDS ORDERED: Iohexol 300 100 ML IJ ONE (21:33)
[2018-12-29 21:39] LABS: BANDS 3 % (0-2); HYPOCHROMIC SLIGHT; LYMPHOCYTE 4 % (20-40); MICROCYTOSIS SLIGHT; MONOCYTE 7 % (0-10); NEUTROPHIL 86 % (50-75); NUCLEATED RED BLOOD CELL 1 % (0-0); PLATELET ESTIMATE NORMAL (NORMAL); TOTAL CELLS COUNTED 100
[2018-12-29 21:40] LABS: LARGE PLATELETS PRESENT; SCHISTOCYTES SLIGHT
[2018-12-29] MEDS: Sodium Chloride 0.9% 1,000 ML IV SCH (23:14)
[2018-12-30 03:20] LABS: VENOUS BLOOD GAS BASE EXCESS 1.1 mmol/L (0.0-2.0); VENOUS BLOOD GAS PCO2 37 mmHg (40-60); VENOUS BLOOD GAS PO2 76 mm/Hg (30-55); VENOUS BLOOD PH 7.44 (7.32-7.43)
[2018-12-30] MEDS: Benzocaine/Menthol (Cepacol) Lozenge MT SCH ×6 (03:49→19:54)
[2018-12-30] MEDS: Albuterol-Ipratrop 3 mg / 0.5 (3 ml) UD INH SCH ×3 (07:40→19:34)
[2018-12-30] MEDS: Sodium Chloride 0.9% 1,000 ML IV SCH ×3 (09:15→19:54)
--- NOTE | 2018-12-30 09:26 | RAD ---
Chest x-ray single frontal view History: Chest pain. Comparison 12/17/2018 Findings Hyperinflation suggestive for COPD and or emphysematous changes. Patchy increased markings in the medial left infrahilar region. Clinical correlation. Biapical pleural thickening with upper lobe granulomatous changes. Nodular density at the right lung base may represent confluence of shadows with ribs and vessels. Correlation with chest CT may be helpful if indicated. Bibasilar breast and nipple shadows. Nodular density in the right midlung zone may represent confluence of shadows with inferior right scapula with ribs and vessels. Bilateral hilar prominence. Heart size within normal limits. Degenerative changes in the spine and shoulders. Impression: Patchy increased markings in the medial left infrahilar region. Clinical correlation.
[2018-12-30] MEDS: LIPASE/PROTEASE/AMYLASE 21,000 U ECC PO SCH ×3 (10:00→17:53)
[2018-12-30] MEDS: guaiFENesin 600 mg ER Tab PO SCH ×2 (10:31→17:53)
[2018-12-30] MEDS: Potassium Chloride 20 mEq ER Tab PO SCH (10:31)
--- NOTE | 2018-12-30 12:05 | CARD ---
APPROVED REPORT Date of service: 12/29/2018 EKG Measurement Heart [id number] <Conclusion> Suspect arm lead reversal, interpretation assumes no reversal Sinus tachycardia with short CA Left posterior fascicular block ST & T wave abnormality, consider inferior ischemia ST & T wave abnormality, consider anterolateral ischemia Abnormal ECG
--- NOTE | 2018-12-30 12:57 | CT ---
Date of service: 12/29/2018 PROCEDURE: CT Abdomen and Pelvis with contrast HISTORY: abd pain ho of chronic pancreatitis COMPARISON: CT abdomen and pelvis with contrast performed 12/04/18, pancreatic protocol CT performed 12/05/18, CT abdomen and pelvis with contrast performed 12/04/17 TECHNIQUE: Contrast dose: 100 mL Omnipaque 300 IV Radiation dose: Total exam DLP = 185.62 mGy-cm. This CT exam was performed using one or more of the following dose reduction techniques: Automated exposure control, adjustment of the mA and/or kV according to patient size, and/or use of iterative reconstruction technique. FINDINGS: Examination limited by paucity of intra-abdominal and intrapelvic fat. LOWER THORAX: Mild bibasilar atelectasis. No visible pleural effusion or pneumothorax. LIVER: Hepatic calcifications, likely granulomas. GALLBLADDER AND BILE DUCTS: Cholecystectomy. PANCREAS: 2.0 x 2.5 cm focal fluid collection as on prior study, possibly pseudocyst. Additional fluid collection noted adjacent to the pancreatic body/tail; unclear if bowel loop or pseudocyst. SPLEEN: Unremarkable. ADRENALS: Unremarkable. KIDNEYS AND URETERS: The kidneys enhance symmetrically. No hydronephrosis or obstructing calculus identified. VASCULATURE: IVC filter. No aortic aneurysm. Atherosclerotic calcifications/mural plaque. BOWEL: Stomach is nondistended. Marked mucosal thickening of the stomach and duodenum suspicious for gastritis/duodenitis. Lack of oral contrast limits evaluation for bowel pathology. Bowel loops appear within normal limits of caliber without evidence of obstruction. APPENDIX: The appendix is not definitively identified. No secondary signs of acute appendicitis. PERITONEUM: Small pelvic fluid. No definite free air. LYMPH NODES: No bulky adenopathy identified. BLADDER: Mildly thick-walled urinary bladder. REPRODUCTIVE: Uterus is present. BONES: Osseous demineralization. Degenerative changes. OTHER FINDINGS: None. IMPRESSION: 2.0 x 2.5 cm focal fluid collection re-identified possibly pseudocyst. Additional fluid collection noted adjacent to the pancreatic body/tail; unclear if bowel loop or pseudocyst. Marked mucosal thickening of the stomach and duodenum suspicious for gastritis/duodenitis. Mildly thick-walled urinary bladder. Correlate clinically including urinalysis. IVC filter. Additional findings as above. Preliminary impression was provided by Seer
[2018-12-30 14:40] LABS: SQUAMOUS EPITHIAL 1 /hpf (0-5); URINE BACTERIA RARE (<OCC); URINE BILIRUBIN NEGATIVE (NEGATIVE); URINE CLARITY Hazy (Clear); URINE COLOR Yellow (YELLOW); URINE GLUCOSE (UA) 1+ mg/dL (Normal); URINE PROTEIN 1+ mg/dL (NEGATIVE)
[2018-12-30 14:41] LABS: URINE LEUKOCYTE ESTERASE 1+ Leu/uL (Negative)
[2018-12-30 14:42] LABS: URINE BLOOD TRACE (NEGATIVE)
--- NOTE | 2018-12-30 21:23 | CP.PCM.HP ---
Present on Admission - Present on Admission Any Indicators Present on Admission: Yes History of DVT/PE: Yes Past Patient History - Infectious Disease Hx of Infectious Diseases: None - Past Medical History & Family History Past Medical History?: Yes - Past Social History Smoking Status: Light Smoker < 10 Cigarettes Daily - CARDIAC Hx Pacemaker: No - PULMONARY Hx Chronic Obstructive Pulmonary Disease (COPD): Yes Hx Pneumonia: Yes (CHILDHOOD) - NEUROLOGICAL Hx Neurological Disorder: No - HEENT Hx HEENT Problems: No - RENAL Hx Chronic Kidney Disease: No - ENDOCRINE/METABOLIC Hx Endocrine Disorders: No - HEMATOLOGICAL/ONCOLOGICAL Hx Cancer: No - INTEGUMENTARY Hx Dermatological Problems: No - MUSCULOSKELETAL/RHEUMATOLOGICAL Hx Falls: No - GASTROINTESTINAL Hx Gall Bladder Disease: Yes (Cholelithiasis) Hx Pancreatitis: Yes - GENITOURINARY/GYNECOLOGICAL Hx Genitourinary Disorders: No Other/Comment: 1989 oophorectomy - PSYCHIATRIC Hx Substance Use: Yes - SURGICAL HISTORY Hx Mastectomy: No - ANESTHESIA Hx Anesthesia: No Hx Anesthesia Reactions: No Hx Malignant Hyperthermia: No Meds Allergies/Adverse Reactions: Allergies Allergy/AdvReac Type Severity Reaction Status Date / Time No Known Allergies Allergy Verified 12/29/18 20:07 Results - Vital Signs Recent Vital Signs: Last Vital Signs Temp 97.8 F 12/30/18 15:00 Pulse 101 H 12/30/18 15:00 Resp 18 12/30/18 15:00 BP 106/65 12/30/18 15:00 Pulse Ox 97 12/30/18 15:00 - Labs Result Diagrams: 12/29/18 20:36 12/29/18 20:36 Labs: Laboratory Results - last 24 hr 12/29/18 12/30/18 12/30/18 20:36 02:50 14:15 Neutrophils % (Manual) 86 H Band Neutrophils % 3 H Lymphocytes % (Manual) 4 L Monocytes % (Manual) 7 Nucleated RBC % 1 H Platelet Estimate Normal Large Platelets Present Hypochromasia (manual) Slight Microcytosis (manual) Slight Schistocytes Slight pO2 76 H VBG pH 7.44 H VBG pCO2 37 L VBG HCO3 25.7 VBG Total CO2 26.2 VBG O2 Sat (Calc) 98.1 H VBG Base Excess 1.1 VBG Potassium 4.0 Sodium 131.0 L Chloride 100.0 Glucose 139 H Lactate 1.2 Venous Blood Potassium 4.0 Urine Color Yellow Urine Clarity Hazy Urine pH 5.0 Ur Specific [place] 1.028 Urine Protein 1+ H Urine Glucose (UA) 1+ Urine Ketones Negative Urine Blood Trace Urine Nitrate Negative Urine Bilirubin Negative Urine Urobilinogen 2.0 H Ur Leukocyte Esterase 1+ H Urine WBC (Auto) 10 H Urine RBC (Auto) 4 H Ur Squamous Epith Cells 1 Urine Bacteria Rare
[2018-12-31] MEDS: Benzocaine/Menthol (Cepacol) Lozenge MT SCH ×6 (00:03→21:54)
[2018-12-31] MEDS: Albuterol-Ipratrop 3 mg / 0.5 (3 ml) UD INH SCH ×4 (01:23→20:04)
[2018-12-31] MEDS: Sodium Chloride 0.9% 1,000 ML IV SCH ×2 (04:04→14:21)
--- NOTE | 2018-12-31 06:02 | HP ---
CHIEF COMPLAINT: Fever x2. HISTORY OF PRESENT ILLNESS: This is a 58-year-old female, well known to me with history of COPD, on home oxygen, home nebulizer, , anxiety, depression, chronic abdominal pain syndrome. The patient has pancreatitis, and recently, she was treated, stabilized, and discharged for acute necrotizing hemorrhagic pancreatitis. She is currently in a subacute rehab facility. She developed acute fever since day before yesterday. Along with fever, she has chills, rigors, body aches, tiredness, anorexia, malaise, and fatigue. The patient has runny nose. The patient has sore throat. She has some cough. The patient has generalized weakness. She has malaise. She has chills. The patient denies any back pain. She has joint pain. She denies any dysuria, hematuria, or pyuria. She denies any sneezing, itchy eyes, or itchy nose. PAST MEDICAL HISTORY: COPD, depression, pancreatitis, pancreatic insufficiency, pseudocyst of pancreas. SOCIAL HISTORY: Ex-smoker, ex-EtOH user. CURRENT MEDICATIONS: At the rehab facility, she is on Mucinex, K-Dur, nicotine patch, Pancrease, Pepcid, Cepacol lozenges and liquid, DuoNeb, and Dilaudid tablet. PHYSICAL EXAMINATION: GENERAL: A middle-aged female who is weak and sick looking. VITAL SIGNS: Blood pressure 106/65, pulse 104, respiratory rate 13, and temperature 97.3. SKIN: Dry, poor turgor. No bruises, no purpura, no petechiae. HEENT: Atraumatic, normocephalic. Negative pallor. Negative jaundice. Extraocular movements are intact. NECK: Supple. No JVD. No lymph node. No thyromegaly. No carotid bruit. CHEST: Chest wall, bilateral symmetrical expansion. LUNGS: Clear. No rale. No rhonchi. CARDIOVASCULAR SYSTEM: S1 and S2 regular. No heave. No thrill. ABDOMEN: Soft and nontender. Bowel sounds are positive. RECTAL: No masses. No bleed. EXTREMITIES: No clubbing, cyanosis, or edema. CENTRAL NERVOUS SYSTEM: Awake, alert, and oriented x3. Cranial nerves II through XII are normal. Power 5/5 x4. Plantars are downgoing. ASSESSMENT: 1. Flu. 2. Dehydration. 3. Pancreatic insufficiency. 4. Chronic obstructive pulmonary disease. PLAN: Admit. Detailed orders are written. Seen and examined. Connor Baker MD
[2018-12-31] MEDS: LIPASE/PROTEASE/AMYLASE 21,000 U ECC PO SCH ×3 (10:00→17:59)
[2018-12-31] MEDS: Potassium Chloride 20 mEq ER Tab PO SCH (10:05)
[2018-12-31] MEDS: guaiFENesin 600 mg ER Tab PO SCH ×2 (10:06→17:59)
--- NOTE | 2018-12-31 21:15 | CP.PCM.PN ---
Subjective - Date & Time of Evaluation Date of Evaluation: 12/31/18 Time of Evaluation: 07:40 - Subjective Subjective: dictated Objective - Vital Signs/Intake and Output Vital Signs (last 24 hours): Temp Pulse Resp BP Pulse Ox 97.9 F 81 18 103/66 100 12/31/18 15:00 12/31/18 15:00 12/31/18 15:00 12/31/18 15:00 12/31/18 15:00 Intake and Output: 12/31/18 01/01/19 18:59 06:59 Intake Total 400 Output Total 600 800 Balance -200 -800 - Medications Medications: Current Medications Albuterol/Ipratropium (Duoneb 3 Mg/0.5 Mg (3 Ml) Ud) 3 ml INH RQ6 [facility] Last Admin: 12/31/18 20:04 Dose: 3 ml Apixaban (Eliquis) 2.5 mg PO BID [facility] Last Admin: 12/31/18 17:59 Dose: 2.5 mg Benzocaine/Menthol (Cepacol Sore Throat) 1 calin MT Q4 [facility] Last Admin: 12/31/18 16:09 Dose: 1 calin Famotidine (Pepcid) 20 mg PO HS [facility] Last Admin: 12/30/18 21:49 Dose: 20 mg Guaifenesin (Mucinex La) 600 mg PO BID [facility] Last Admin: 12/31/18 17:59 Dose: 600 mg Hydromorphone HCl (Dilaudid) 4 mg PO Q6 PRN PRN Reason: Pain, moderate (4-7) Last Admin: 12/31/18 14:17 Dose: 4 mg Sodium Chloride (Sodium Chloride 0.9%) 1,000 mls @ 100 mls/hr IV .Q10H [facility] Last Admin: 12/31/18 14:21 Dose: 100 mls/hr Nicotine (Nicoderm Cq) 1 patch TD DAILY [facility] Last Admin: 12/31/18 10:09 Dose: 1 patch Oseltamivir Phosphate (Tamiflu Cap) 75 mg PO BID [facility]; Protocol Stop: 01/03/19 23:09 Last Admin: 12/31/18 17:59 Dose: 75 mg Potassium Chloride (K-Dur 20 Meq Er Tab) 20 meq PO DAILY [facility] Last Admin: 12/31/18 10:05 Dose: 20 meq Sennosides (Senokot Tab) 8.6 mg PO HS [facility] Last Admin: 12/30/18 21:49 Dose: 8.6 mg - Labs Labs: 12/29/18 20:36 12/29/18 20:36 PT 13.5 SECONDS (9.7-12.2) H 12/29/18 20:36 INR 1.2 12/29/18 20:36 APTT 34 SECONDS (21-34) 12/29/18 20:36
[2019-01-01] MEDS: Sodium Chloride 0.9% 1,000 ML IV SCH ×2 (00:28→11:25)
[2019-01-01] MEDS: Benzocaine/Menthol (Cepacol) Lozenge MT SCH ×6 (00:29→20:20)
[2019-01-01] MEDS: Albuterol-Ipratrop 3 mg / 0.5 (3 ml) UD INH SCH ×3 (01:29→13:30)
--- NOTE | 2019-01-01 01:47 | PN ---
DATE: 12/31/2018 SUBJECTIVE: The patient is feeling better, afebrile. Decreased shortness of breath. PHYSICAL EXAMINATION: VITAL SIGNS: Blood pressure 103/66, pulse 94, respiratory rate 18, temperature 97.9. LUNGS: Decreased air entry. CARDIOVASCULAR SYSTEM: S1 and S2, regular. ABDOMEN: Soft. ASSESSMENT: 1. Flu. 2. Chronic obstructive pulmonary disease. 3. Pancreatitis with pancreatic pseudocyst. PLAN: IV fluids. Tamiflu. Monitor the patient. Connor Baker MD
[2019-01-01] MEDS: guaiFENesin 600 mg ER Tab PO SCH ×2 (09:32→17:11)
[2019-01-01] MEDS: Potassium Chloride 20 mEq ER Tab PO SCH (09:33)
[2019-01-01] MEDS: LIPASE/PROTEASE/AMYLASE 21,000 U ECC PO SCH ×3 (09:46→17:11)
--- NOTE | 2019-01-01 14:03 | CP.PCM.PN ---
Subjective - Date & Time of Evaluation Date of Evaluation: 01/01/19 Time of Evaluation: 14:03 - Subjective Subjective: PATIENT SEEN AND EXAMINED AT THE BEDSIDE PER PATIENT HAS TO COMPLETE HER TAMIFLU BEFORE RETURN TO SD Objective - Vital Signs/Intake and Output Vital Signs (last 24 hours): Temp Pulse Resp BP Pulse Ox 97.7 F 77 18 110/73 100 01/01/19 07:00 01/01/19 07:34 01/01/19 07:00 01/01/19 07:00 01/01/19 07:00 Intake and Output: 01/01/19 01/01/19 06:59 18:59 Intake Total 830 Output Total 800 Balance 30 - Medications Medications: Current Medications Albuterol/Ipratropium (Duoneb 3 Mg/0.5 Mg (3 Ml) Ud) 3 ml INH RQ6 [facility] Last Admin: 01/01/19 13:30 Dose: 3 ml Apixaban (Eliquis) 2.5 mg PO BID [facility] Last Admin: 01/01/19 09:33 Dose: 2.5 mg Benzocaine/Menthol (Cepacol Sore Throat) 1 calin MT Q4 [facility] Last Admin: 01/01/19 11:25 Dose: Not Given Famotidine (Pepcid) 20 mg PO HS [facility] Last Admin: 12/31/18 21:53 Dose: 20 mg Guaifenesin (Mucinex La) 600 mg PO BID [facility] Last Admin: 01/01/19 09:32 Dose: 600 mg Hydromorphone HCl (Dilaudid) 4 mg PO Q6 PRN PRN Reason: Pain, moderate (4-7) Last Admin: 01/01/19 11:23 Dose: 4 mg Sodium Chloride (Sodium Chloride 0.9%) 1,000 mls @ 100 mls/hr IV .Q10H [facility] Last Admin: 01/01/19 11:25 Dose: 100 mls/hr Nicotine (Nicoderm Cq) 1 patch TD DAILY [facility] Last Admin: 01/01/19 09:33 Dose: 1 patch Oseltamivir Phosphate (Tamiflu Cap) 75 mg PO BID [facility]; Protocol Stop: 01/03/19 23:09 Last Admin: 01/01/19 09:32 Dose: 75 mg Potassium Chloride (K-Dur 20 Meq Er Tab) 20 meq PO DAILY [facility] Last Admin: 01/01/19 09:33 Dose: 20 meq Sennosides (Senokot Tab) 8.6 mg PO HS [facility] Last Admin: 12/31/18 21:53 Dose: 8.6 mg - Labs Labs: 12/29/18 20:36 12/29/18 20:36 PT 13.5 SECONDS (9.7-12.2) H 12/29/18 20:36 INR 1.2 12/29/18 20:36 APTT 34 SECONDS (21-34) 12/29/18 20:36 Assessment and Plan - Assessment and Plan (Free Text) Assessment: PLACE UNDER THE SERVICE OF DR LAWTON AT [facility]----CALL FOR ADMITTING ORDER CONTINUE HOME MEDICATION NEW PRESCRIPTION GIVEN TAMIFLU 75 MG PO BID FOR 2 DAYS ACTIVITY TOLERATED CALL DR LAWTON FOR FURTHER ORDER
[2019-01-02] MEDS: Albuterol-Ipratrop 3 mg / 0.5 (3 ml) UD INH SCH ×4 (01:18→19:19)
[2019-01-02] MEDS: Sodium Chloride 0.9% 1,000 ML IV SCH ×5 (01:33→23:45)
[2019-01-02] MEDS: Benzocaine/Menthol (Cepacol) Lozenge MT SCH ×7 (01:33→23:44)
--- NOTE | 2019-01-02 02:36 | PN ---
DATE: 01/01/2019 SUBJECTIVE: The patient, Kym Conde, is feeling better. She is afebrile. No shortness of breath. Tolerating diet. No tachycardia. No nausea or vomiting. She is on p.o. Dilaudid. PHYSICAL EXAMINATION: VITAL SIGNS: Blood pressure 112/66, pulse 74, respiratory rate 16, and temperature 98. LUNGS: Clear. Decreased air entry. CARDIOVASCULAR SYSTEM: S1 and S2, regular. ABDOMEN: Soft. Nontender. Bowel sounds are positive. ASSESSMENT: 1. Flu. 2. Dehydration, hypokalemia. 3. Chronic obstructive pulmonary disease. 4. Pancreatitis with pancreatic insufficiency. PLAN: Continue current medication. Monitor the patient. Connor Baker MD
[2019-01-02] MEDS: guaiFENesin 600 mg ER Tab PO SCH ×2 (09:15→17:43)
[2019-01-02] MEDS: Potassium Chloride 20 mEq ER Tab PO SCH (09:16)
[2019-01-02] MEDS: LIPASE/PROTEASE/AMYLASE 21,000 U ECC PO SCH ×3 (09:16→17:43)
[2019-01-03] MEDS: Benzocaine/Menthol (Cepacol) Lozenge MT SCH ×6 (03:16→23:47)
[2019-01-03] MEDS: Albuterol-Ipratrop 3 mg / 0.5 (3 ml) UD INH SCH ×3 (07:49→19:37)
[2019-01-03] MEDS: LIPASE/PROTEASE/AMYLASE 21,000 U ECC PO SCH ×3 (09:14→17:41)
[2019-01-03] MEDS: guaiFENesin 600 mg ER Tab PO SCH ×2 (09:14→17:41)
[2019-01-03] MEDS: Potassium Chloride 20 mEq ER Tab PO SCH (09:14)
[2019-01-03] MEDS: Sodium Chloride 0.9% 1,000 ML IV SCH ×3 (10:36→20:49)
--- NOTE | 2019-01-03 20:11 | PN ---
DATE: 01/03/[address] Connor Baker. SUBJECTIVE: The patient's abdominal pain improved. She denies any retrosternal chest pain. PHYSICAL EXAMINATION: VITAL SIGNS: Blood pressure 114/76, heart rate 84, temperature 98, respirations 20. HEENT: Normocephalic. CHEST: Clear. HEART: S1, S2 regular. ABDOMEN: Soft. EXTREMITIES: No edema. LABORATORY DATA: SMA-7 on admission: Sodium 128, potassium 3.7, chloride 91, CO2 29, glucose 106, BUN 24, creatinine 0.5. Lipase elevated at 463. Hemoglobin and hematocrit on admission 13.1 and 41.9, white count 14,000, platelet count 331,000. Influenza type A is positive serology. Abdomen and pelvic CT scan 2 x 2.5 cm fluid collection with the possibility of pseudocyst. Marked mucosal thickening of the stomach and duodenum suspicious of gastritis/duodenitis. IVC filter noted. ASSESSMENT: 1. Pancreatitis and pancreatic pseudocyst. 2. Gastritis and vaginitis. 3. Abnormal EKG with evidence of anterolateral ischemia on admission with suspected lead reversal. 4. Moderate pulmonary hypertension with cor pulmonale. Demonstration echocardiogram in November revealed moderately dilated right ventricle with moderately reduced right ventricular systolic function. PLAN: Continue current Eliquis 2.5 mg twice a day, K-Dur 20 mEq once a day, Mucinex 600 mg twice a day, Nicoderm patch, Tamiflu at 75 mg twice a day. I will order 12-lead EKG and repeat serum electrolytes. Oh Mallory MD
--- NOTE | 2019-01-03 20:15 | CP.PCM.PN ---
Subjective - Date & Time of Evaluation Date of Evaluation: 01/02/19 Time of Evaluation: 09:00 - Subjective Subjective: dictated Objective - Vital Signs/Intake and Output Vital Signs (last 24 hours): Temp Pulse Resp BP Pulse Ox 97.8 F 97 H 20 115/67 97 01/03/19 15:41 01/03/19 15:41 01/03/19 15:41 01/03/19 15:41 01/03/19 15:41 - Medications Medications: Current Medications Albuterol/Ipratropium (Duoneb 3 Mg/0.5 Mg (3 Ml) Ud) 3 ml INH RQ6 [facility] Last Admin: 01/03/19 19:37 Dose: 3 ml Apixaban (Eliquis) 2.5 mg PO BID [facility] Last Admin: 01/03/19 17:41 Dose: 2.5 mg Benzocaine/Menthol (Cepacol Sore Throat) 1 calin MT Q4 [facility] Last Admin: 01/03/19 17:41 Dose: 1 calin Famotidine (Pepcid) 20 mg PO HS [facility] Last Admin: 01/02/19 21:03 Dose: 20 mg Guaifenesin (Mucinex La) 600 mg PO BID [facility] Last Admin: 01/03/19 17:41 Dose: 600 mg Hydromorphone HCl (Dilaudid) 4 mg PO Q6 PRN PRN Reason: Pain, moderate (4-7) Last Admin: 01/03/19 17:41 Dose: 4 mg Sodium Chloride (Sodium Chloride 0.9%) 1,000 mls @ 100 mls/hr IV .Q10H [facility] Last Admin: 01/03/19 12:22 Dose: Not Given Metoprolol Tartrate (Lopressor) 25 mg PO BID [facility] Nicotine (Nicoderm Cq) 1 patch TD DAILY [facility] Last Admin: 01/03/19 09:14 Dose: 1 patch Oseltamivir Phosphate (Tamiflu Cap) 75 mg PO BID [facility]; Protocol Stop: 01/03/19 23:09 Last Admin: 01/03/19 17:41 Dose: 75 mg Potassium Chloride (K-Dur 20 Meq Er Tab) 20 meq PO DAILY [facility] Last Admin: 01/03/19 09:14 Dose: 20 meq Sennosides (Senokot Tab) 8.6 mg PO HS [facility] Last Admin: 01/02/19 21:15 Dose: 8.6 mg - Labs Labs: 12/29/18 20:36 12/29/18 20:36 PT 13.5 SECONDS (9.7-12.2) H 12/29/18 20:36 INR 1.2 12/29/18 20:36 APTT 34 SECONDS (21-34) 12/29/18 20:36
[2019-01-03 21:41] LABS: BARBITURATES, UR NEGATIVE (NEGATIVE); BENZODIAZEPINES, UR NEGATIVE (NEGATIVE); PHENCYCLIDINE, UR NEGATIVE (NEGATIVE)
[2019-01-03 21:44] LABS: OPIATES, UR POSITIVE (NEGATIVE)
[2019-01-04] MEDS: Sodium Chloride 0.9% 1,000 ML IV SCH ×3 (00:15→09:27)
--- NOTE | 2019-01-04 01:27 | PN ---
DATE: 01/03/2019 SUBJECTIVE: The patient is waiting to be transferred back to subacute rehab. She is on the floor with no acute complaints. Her tachycardia, nausea, vomiting, and flu symptoms have subsided. PHYSICAL EXAMINATION: VITAL SIGNS: Blood pressure is 120/70, pulse 74, respiratory rate 20, temperature 98. LUNGS: Clear. CARDIOVASCULAR: S1 and S2, regular. ABDOMEN: Soft. ASSESSMENT: 1. Status post flu. 2. Dehydration. 3. Chronic pancreatitis. PLAN: Pending transfer. Connor Baker MD
[2019-01-04] MEDS: Albuterol-Ipratrop 3 mg / 0.5 (3 ml) UD INH SCH ×4 (02:24→19:40)
[2019-01-04] MEDS: Benzocaine/Menthol (Cepacol) Lozenge MT SCH ×5 (05:33→19:14)
[2019-01-04 08:31] LABS: BLOOD UREA NITROGEN 13 mg/dL (7-17); CALCIUM 8.2 mg/dl (8.6-10.4); GFR NON-AFRICAN AMERICAN > 60
[2019-01-04 08:55] VITALS: RESP 18
[2019-01-04] MEDS: Potassium Chloride 20 mEq ER Tab PO SCH (09:06)
[2019-01-04] MEDS: LIPASE/PROTEASE/AMYLASE 21,000 U ECC PO SCH ×3 (09:06→17:18)
[2019-01-04] MEDS: guaiFENesin 600 mg ER Tab PO SCH ×2 (09:06→17:18)
[2019-01-04 15:17] VITALS: PULSE 86; O2SAT 95
[2019-01-04 15:26] VITALS: TEMP 98.2
--- NOTE | 2019-01-04 15:30 | CP.PCM.PN ---
Subjective - Date & Time of Evaluation Date of Evaluation: 01/04/19 Time of Evaluation: 15:30 - Subjective Subjective: PATIENT SEEN AND EXAMINED AT THE BEDSIDE Objective - Vital Signs/Intake and Output Vital Signs (last 24 hours): Temp Pulse Resp BP Pulse Ox 98.2 F 86 18 128/76 95 01/04/19 15:00 01/04/19 15:01 01/04/19 15:00 01/04/19 15:00 01/04/19 15:01 Intake and Output: 01/04/19 01/04/19 06:59 18:59 Intake Total 1150 400 Output Total 1650 700 Balance -500 -300 - Medications Medications: Current Medications Albuterol/Ipratropium (Duoneb 3 Mg/0.5 Mg (3 Ml) Ud) 3 ml INH RQ6 [facility] Last Admin: 01/04/19 10:45 Dose: 3 ml Apixaban (Eliquis) 2.5 mg PO BID [facility] Last Admin: 01/04/19 09:06 Dose: 2.5 mg Benzocaine/Menthol (Cepacol Sore Throat) 1 calin MT Q4 [facility] Last Admin: 01/04/19 12:14 Dose: Not Given Famotidine (Pepcid) 20 mg PO HS [facility] Last Admin: 01/03/19 21:43 Dose: 20 mg Guaifenesin (Mucinex La) 600 mg PO BID [facility] Last Admin: 01/04/19 09:06 Dose: 600 mg Hydromorphone HCl (Dilaudid) 4 mg PO Q6 PRN PRN Reason: Pain, moderate (4-7) Last Admin: 01/04/19 12:13 Dose: 4 mg Metoprolol Tartrate (Lopressor) 25 mg PO BID [facility] Last Admin: 01/04/19 09:14 Dose: 25 mg Nicotine (Nicoderm Cq) 1 patch TD DAILY [facility] Last Admin: 01/04/19 09:07 Dose: 1 patch Potassium Chloride (K-Dur 20 Meq Er Tab) 20 meq PO DAILY [facility] Last Admin: 01/04/19 09:06 Dose: 20 meq Sennosides (Senokot Tab) 8.6 mg PO HS [facility] Last Admin: 01/03/19 21:18 Dose: Not Given - Labs Labs: 12/29/18 20:36 01/04/19 08:06 PT 13.5 SECONDS (9.7-12.2) H 12/29/18 20:36 INR 1.2 12/29/18 20:36 APTT 34 SECONDS (21-34) 12/29/18 20:36 Assessment and Plan - Assessment and Plan (Free Text) Assessment: PLACE UNDER THE SERVICE OF DR LAWTON AT [facility]----CALL FOR ADMITTING ORDER CONTINUE HOME MEDICATION ACTIVITY TOLERATED CALL DR LAWTON FOR FURTHER ORDER
[2019-01-04 17:20] VITALS: BP 135/80
--- NOTE | 2019-01-04 19:21 | CARD ---
APPROVED REPORT Date of service: 01/03/2019 EKG Measurement Heart [id number] <Conclusion> Sinus rhythm with short TX Rightward axis T wave abnormality, consider inferior ischemia T wave abnormality, consider anterolateral ischemia Abnormal ECG
--- NOTE | 2019-01-05 07:42 | CP.PCM.DIS ---
Provider - Provider Date of Admission: 12/29/18 22:44 Attending physician: Connor Baker MD Time Spent in preparation of Discharge (in minutes): 30 Hospital Course - Lab Results Lab Results: Micro Results 12/30/18 00:29 Blood Blood Culture - Final NO GROWTH AFTER 5 DAYS 12/30/18 00:29 Blood Gram Stain - Final TEST NOT PERFORMED 12/30/18 00:28 Blood Blood Culture - Final NO GROWTH AFTER 5 DAYS 12/30/18 00:28 Blood Gram Stain - Final TEST NOT PERFORMED 12/30/18 14:15 Urine,Clean Catch Urine Culture - Final 10-50,000 CFU/ML. MULTIPLE SPECIES. PROBABLE CONTAMINATION. Most Recent Lab Values WBC 14.0 K/uL (4.8-10.8) H 12/29/18 20:36 RBC 4.89 Mil/uL (3.80-5.20) 12/29/18 20:36 Hgb 13.2 g/dL (11.0-16.0) 12/29/18 20:36 Hct 41.9 % (34.0-47.0) 12/29/18 20:36 MCV 85.8 fL (81.0-99.0) 12/29/18 20:36 MCH 27.0 pg (27.0-31.0) 12/29/18 20:36 MCHC 31.5 g/dL (33.0-37.0) L 12/29/18 20:36 RDW 17.5 % (11.5-14.5) H 12/29/18 20:36 Plt Count 331 K/uL (130-400) D 12/29/18 20:36 MPV 8.1 fL (7.2-11.7) 12/29/18 20:36 Neut % (Auto) 90.9 % (50.0-75.0) H 12/29/18 20:36 Lymph % (Auto) 4.2 % (20.0-40.0) L 12/29/18 20:36 [place] % (Auto) 4.7 % (0.0-10.0) 12/29/18 20:36 Eos % (Auto) 0.1 % (0.0-4.0) 12/29/18 20:36 Baso % (Auto) 0.1 % (0.0-2.0) 12/29/18 20:36 Neut # (Auto) 12.8 K/uL (1.8-7.0) H 12/29/18 20:36 Lymph # (Auto) 0.6 K/uL (1.0-4.3) L 12/29/18 20:36 [place] # (Auto) 0.7 K/uL (0.0-0.8) 12/29/18 20:36 Eos # (Auto) 0.0 K/uL (0.0-0.7) 12/29/18 20:36 Baso # (Auto) 0.0 K/uL (0.0-0.2) 12/29/18 20:36 Neutrophils % (Manual) 86 % (50-75) H 12/29/18 20:36 Band Neutrophils % 3 % (0-2) H 12/29/18 20:36 Lymphocytes % (Manual) 4 % (20-40) L 12/29/18 20:36 Monocytes % (Manual) 7 % (0-10) 12/29/18 20:36 Nucleated RBC % 1 % (0-0) H 12/29/18 20:36 Platelet Estimate Normal (NORMAL) 12/29/18 20:36 Large Platelets Present 12/29/18 20:36 Hypochromasia (manual) Slight 12/29/18 20:36 Microcytosis (manual) Slight 12/29/18 20:36 Schistocytes Slight 12/29/18 20:36 PT 13.5 SECONDS (9.7-12.2) H 12/29/18 20:36 INR 1.2 12/29/18 20:36 APTT 34 SECONDS (21-34) 12/29/18 20:36 pO2 76 mm/Hg (30-55) H 12/30/18 02:50 VBG pH 7.44 (7.32-7.43) H 12/30/18 02:50 VBG pCO2 37 mmHg (40-60) L 12/30/18 02:50 VBG HCO3 25.7 mmol/L 12/30/18 02:50 VBG Total CO2 26.2 mmol/L (22-28) 12/30/18 02:50 VBG O2 Sat (Calc) 98.1 % (40-65) H 12/30/18 02:50 VBG Base Excess 1.1 mmol/L (0.0-2.0) 12/30/18 02:50 VBG Potassium 4.0 mmol/L (3.6-5.2) 12/30/18 02:50 Sodium 131.0 mmol/l (132-148) L 12/30/18 02:50 Chloride 100.0 mmol/L (98-107) 12/30/18 02:50 Glucose 139 mg/dl (65-105) H 12/30/18 02:50 Lactate 1.2 mmol/L (0.7-2.1) 12/30/18 02:50 Crit Value Called To Dr hernandez 12/29/18 20:39 Crit Value Called By Jamie joiner 12/29/18 20:39 Crit Value Read Back Y 12/29/18 20:39 Blood Gas Notified Time 204512/29/18 20:39 Sodium 136 mmol/L (132-148) 01/04/19 08:06 Potassium 3.8 mmol/L (3.6-5.2) 01/04/19 08:06 Chloride 99 mmol/L (98-107) 01/04/19 08:06 Carbon Dioxide 30 mmol/L (22-30) 01/04/19 08:06 Anion Gap 10 (10-20) 01/04/19 08:06 BUN 13 mg/dL (7-17) 01/04/19 08:06 Creatinine 0.3 mg/dL (0.7-1.2) L 01/04/19 08:06 Est GFR ( Amer) > 60 01/04/19 08:06 Est GFR (Non-Af Amer) > 60 01/04/19 08:06 Random Glucose 88 mg/dL (65-105) D 01/04/19 08:06 Calcium 8.2 mg/dl (8.6-10.4) L 01/04/19 08:06 Total Bilirubin 0.8 mg/dL (0.2-1.3) 12/29/18 20:36 Direct Bilirubin 0.0 mg/dL (0.0-0.4) 12/29/18 20:36 AST 41 U/L (14-36) H D 12/29/18 20:36 ALT 56 U/L (9-52) H D 12/29/18 20:36 Alkaline Phosphatase 84 U/L (38-126) 12/29/18 20:36 Troponin I 0.0210 ng/mL (0.00-0.120) 12/29/18 20:36 NT-Pro-B Natriuret Pep 1580 pg/mL (0-900) H 12/29/18 20:36 Total Protein 6.8 g/dL (6.3-8.3) 12/29/18 20:36 Albumin 4.0 g/dL (3.5-5.0) 12/29/18 20:36 Globulin 2.9 gm/dL (2.2-3.9) 12/29/18 20:36 Albumin/Globulin Ratio 1.4 (1.0-2.1) 12/29/18 20:36 Lipase 463 U/L (23-300) H 12/29/18 20:36 Venous Blood Potassium 4.0 mmol/L (3.6-5.2) 12/30/18 02:50 Urine Color Yellow (YELLOW) 12/30/18 14:15 Urine Clarity Hazy (Clear) 12/30/18 14:15 Urine pH 5.0 (5.0-8.0) 12/30/18 14:15 Ur Specific [place] 1.028 (1.003-1.030) 12/30/18 14:15 Urine Protein 1+ mg/dL (NEGATIVE) H 12/30/18 14:15 Urine Glucose (UA) 1+ mg/dL (Normal) 12/30/18 14:15 Urine Ketones Negative mg/dL (NEGATIVE) 12/30/18 14:15 Urine Blood Trace (NEGATIVE) 12/30/18 14:15 Urine Nitrate Negative (NEGATIVE) 12/30/18 14:15 Urine Bilirubin Negative (NEGATIVE) 12/30/18 14:15 Urine Urobilinogen 2.0 mg/dL (0.2-1.0) H 12/30/18 14:15 Ur Leukocyte Esterase 1+ Nimesh/uL (Negative) H 12/30/18 14:15 Urine WBC (Auto) 10 /hpf (0-5) H 12/30/18 14:15 Urine RBC (Auto) 4 /hpf (0-3) H 12/30/18 14:15 Ur Squamous Epith Cells 1 /hpf (0-5) 12/30/18 14:15 Urine Bacteria Rare (<OCC) 12/30/18 14:15 Urine Opiates Screen Positive (NEGATIVE) H 01/03/19 21:19 Urine Methadone Screen Negative (NEGATIVE) 01/03/19 21:19 Ur Barbiturates Screen Negative (NEGATIVE) 01/03/19 21:19 Ur Phencyclidine Scrn Negative (NEGATIVE) 01/03/19 21:19 Ur Amphetamines Screen Negative (NEGATIVE) 01/03/19 21:19 U Benzodiazepines Scrn Negative (NEGATIVE) 01/03/19 21:19 U Oth Cocaine Metabols Negative (NEGATIVE) 01/03/19 21:19 U Cannabinoids Screen Negative (NEGATIVE) 01/03/19 21:19 Influenza Typ A,B (EIA) Pos for influenza a (NEGATIVE) H 12/29/18 20:39 Discharge Plan - Follow Up Plan Condition: CRITICAL Disposition: TRANSF TO SNF Instructions: Heart Failure, Adult, Flu, Adult (DC), Sepsis, Adult (DC), Exacerbation of COPD (DC) Additional Instructions: PLACE UNDER THE SERVICE OF DR BAKER AT [facility]----CALL FOR ADMITTING ORDER CONTINUE HOME MEDICATION ACTIVITY TOLERATED CALL DR BAKER FOR FURTHER ORDER Referrals: Connor Baker MD [Staff Provider] -
--- NOTE | 2019-01-06 03:09 | DS ---
HOSPITAL COURSE: This is a 58-year-old female with history of anxiety, depression, COPD, pancreatitis, necrotizing recurrent, who was admitted from the rehab for tachycardia, fever, chills, rigors, found to have flu and given Tamiflu, completed her full course of Tamiflu as per long-term request in the hospital. The patient is for discharge. CONDITION UPON DISCHARGE: Stable. DISCHARGE DIAGNOSES: 1. Flu. 2. Pancreatic insufficiency. 3. Dehydration. 4. Chronic obstructive pulmonary disease. Connor Baker MD
--- NOTE | 2019-01-07 11:14 | PQF ---
PROVIDER RESPONSE TEXT: Provider was unable to determine a response for this query. REVIEWER QUERY TEXT: Rule Out Sepsis Clarification Rule out Sepsis is documented in the Medical Record. Please clarify whether: -- Patient has sepsis - Please document confirmed, suspected or probable causative organism - Please document confirmed, suspected or probable localized infection - Please clarify if sepsis is related to a device - Please clarify if sepsis was present on admission -- Sepsis was ruled out (include corresponding diagnosis for patient?s clinical picture and treatment ) -- Patient had sepsis which is resolved -- Other, please specify The patient's Clinical Indicators include: R/O SEPSIS IS DOCUMENTED PLEASE CLARIFY AND DOCUMENT IF "SEPSIS" WAS R/I OR R/O Query created by: Kristin Segal on 01/06/2019 1:15 PM Electronically signed by: Connor Baker MD 01/07/2019 11:11 AM
--- NOTE | 2019-01-07 11:14 | PQF ---
PROVIDER RESPONSE TEXT: Provider was unable to determine a response for this query. REVIEWER QUERY TEXT: Rule Out Sepsis Clarification Rule out Sepsis is documented in the Medical Record. Please clarify whether: -- Patient has sepsis - Please document confirmed, suspected or probable causative organism - Please document confirmed, suspected or probable localized infection - Please clarify if sepsis is related to a device - Please clarify if sepsis was present on admission -- Sepsis was ruled out (include corresponding diagnosis for patient?s clinical picture and treatment ) -- Patient had sepsis which is resolved -- Other, please specify The patient's Clinical Indicators include: ER SEPSIS DOCUMENTED PLEASE CLARIFY AND DOCUMENT IF "SEPSIS" WAS R/I==OR ==R/O Query created by: Kristin Segal on 01/07/2019 10:30 AM Electronically signed by: Connor Baker MD 01/07/2019 11:11 AM
== END 2019-01-04 22:36 | DRG 152 ==
LOC: C.ER 19:54 → C.9E 22:44 → C.5S 12-30 01:49
PROVIDERS: ADMIT Internal Medicine; ATTEND Internal Medicine
PROC: 05H933Z Insertion of Infusion Device into Right Brachial Vein, Percutaneous Approach (ICD-10-PCS; principal; 2018-12-30)
DX: J11.1 Influenza due to unidentified influenza virus with other respiratory manifestations (principal); K85.90 Acute pancreatitis without necrosis or infection, unspecified; K86.3 Pseudocyst of pancreas; K86.1 Other chronic pancreatitis; E86.0 Dehydration; E87.6 Hypokalemia; G89.4 Chronic pain syndrome; I27.29 Other secondary pulmonary hypertension; I27.81 Cor pulmonale (chronic); I50.9 Heart failure, unspecified; J44.9 Chronic obstructive pulmonary disease, unspecified; K29.70 Gastritis, unspecified, without bleeding; F17.210 Nicotine dependence, cigarettes, uncomplicated; Z99.81 Dependence on supplemental oxygen; N76.0 Acute vaginitis